=== PATIENT | male | born 1955 | race Caucasian/White ===

== ENCOUNTER 2018-09-21 13:27 | Inpatient (IN) | payer BC, MEDICARE ==
[~2018-09-21] VITALS: Ht 177.8 cm; Wt 79.5 kg
[~2018-09-21 13:27] MED LIST: POTA20TA12 PO
--- NOTE | 2018-09-21 13:49 | RAD ---
Chest radiograph 09/21/2018 1:36 PM INDICATION: Weakness and on chemotherapy. COMPARISON: Chest radiograph January 31, 2015 TECHNIQUE: Portable upright frontal view of the chest is provided. FINDINGS: The cardiomediastinal silhouette is within normal limits. There are no pleural effusions. There is no pulmonary vascular congestion. There is no pneumothorax. Right chest wall infusion port catheter is identified with the distal tip in the cavoatrial junction. There is a parenchymal opacity in the right upper lobe which has a bandlike morphology and may represent posttreatment related changes versus subsegmental atelectasis versus parenchymal opacity. No significant osseous abnormality is identified. IMPRESSION: There is a 17 mm parenchymal opacity in the right upper lobe which has a bandlike morphology and may represent posttreatment related changes versus subsegmental atelectasis versus parenchymal opacity. Electronically signed by: Aline Marie MD (09/21/2018 1:45 PM) [id number]
[2018-09-21] MEDS ORDERED: IV NORMAL SALINE 1000ML BAG 1,000 ML IV ONE ×2 (14:00→14:30)
[2018-09-21 14:04] LABS: BASO # 0.1 x10^3/uL (0.0-0.2); BASO % 0 % (0-3); EOS % 0 % (0-3); HEMATOCRIT 42.9 % (39.0-53.0); HEMOGLOBIN 13.7 g/dL (13.0-17.5); LYMPH # 0.4 x10^3/uL (1.0-4.8); LYMPH % 2 % (24-48); MEAN CORPUSCULAR HEMOGLOBIN 27 pg (25-35); MEAN CORPUSCULAR HGB CONC 32 g/dL (31-37); MEAN CORPUSCULAR VOLUME 85 fL (79-100); MONO # 0.7 x10^3/uL (0.0-1.1); MONO % 3 % (0-9); NEUT % 95 % (31-73); PLATELET COUNT 349 x10^3/uL (140-400); RED BLOOD COUNT 5.04 x10^6/uL (4.30-5.70); RED CELL DISTRIBUTION WIDTH 18.8 % (11.5-14.5); WHITE BLOOD COUNT 23.2 x10^3/uL (4.0-11.0)
[2018-09-21 14:16] LABS: CALCIUM 9.9 mg/dL (8.5-10.1); CREATININE 3.7 mg/dL (0.7-1.3); GFR 16.6; POTASSIUM 4.8 mmol/L (3.5-5.1)
[2018-09-21 14:22] LABS: ALBUMIN 2.4 g/dL (3.4-5.0); ALBUMIN/GLOBULIN RATIO 0.5 (1.0-1.7); TOTAL BILIRUBIN 0.7 mg/dL (0.2-1.0); TOTAL PROTEIN 7.6 g/dL (6.4-8.2)
--- NOTE | 2018-09-21 14:24 | PHYS DOC ---
Past Medical History Past Medical History: Cancer, Constipation, Hypertension Additional Past Medical Histor: heart murmur (patent ductus),colon ca Past Surgical History: Other Additional Past Surgical Histo: inguinal hernia x3, umbilical hernia, bowel resection/colostomy Alcohol Use: None Drug Use: None Adult General Chief Complaint Chief Complaint: WEAKNESS/GENERALIZED HPI HPI 63-year-old male with multiple medical problems including colon cancer currently receiving chemotherapy monthly and the urinary tract infection that was treated as an outpatient who presents with generalized weakness. Patient states he knows he still has a urinary tract infection was going to go back to the urgent care today to receive more antibiotics but was too weak. He states he is unable to get up and get around at all. He states he has not been eating or drinking normally. His urine output has been down. He has had no nausea or vomiting. He denies any high fever chills or sweats.[] Review of Systems Review of Systems Constitutional: Profoundly weak but denies fever or chills[] Eyes: Denies change in visual acuity, redness, or eye pain [] HENT: Denies nasal congestion or sore throat [] Respiratory: Denies cough or shortness of breath [] Cardiovascular: No additional information not addressed in HPI [] GI: Denies abdominal pain, nausea, vomiting, bloody stools or diarrhea [] : Decreased urine output[] Musculoskeletal: Denies back pain or joint pain [] Integument: Denies rash or skin lesions [] Neurologic: Denies headache, focal weakness or sensory changes [] Endocrine: Denies polyuria or polydipsia [] All other systems were reviewed and found to be within normal limits, except as documented in this note. Current Medications Current Medications Current Medications Medications (Trade) Dose Ordered Sig/Joseph Start Time Stop Time Status Last Admin Dose Admin Piperacillin Sod/ Tazobactam Sod 3.375 gm/Sodium Chloride 50 ml @ 100 mls/hr 1X ONCE 09/21/18 14:30 09/21/18 14:59 DC 09/21/18 14:59 100 MLS/HR Sodium Chloride 1,000 ml @ 150 mls/hr Q6H40M 09/21/18 14:40 09/22/18 14:39 Allergies Allergies Allergies Coded Allergies Type Severity Reaction Last Updated Verified No Known Drug Allergies 01/12/15 No Physical Exam Physical Exam Constitutional: Frail, elderly, older than stated age appears dehydrated and acutely ill[] HENT: Normocephalic, atraumatic, bilateral external ears normal, oropharynx moist, no oral exudates, nose normal. [] Eyes: PERRLA, EOMI, conjunctiva normal, no discharge. [] Neck: Normal range of motion, no tenderness, supple, no stridor. [] Cardiovascular: Tachycardic no murmur[] Lungs & Thorax: Bilateral breath sounds clear to auscultation [] Abdomen: Colostomy in place in the right midabdomen in the periumbilical area there is 2 wounds that are open down to the fascia that her malodorous but appear pink and otherwise healing well there is mesh below. [] Skin: Warm, dry, no erythema, no rash. [] Back: No tenderness, no CVA tenderness. [] Extremities: No tenderness, no cyanosis, no clubbing, ROM intact, no edema. [] Neurologic: Alert and oriented X 3, normal motor function, normal sensory function, no focal deficits noted. [] Psychologic: Depressed affect[] Current Patient Data Vital Signs Vital Signs Date Time Temp Pulse Resp B/P (MAP) Pulse Ox O2 Delivery O2 Flow Rate FiO2 09/21/18 13:27 99.0 139 23 170/114 (132) Room Air 99.0 Lab Values Laboratory Tests Test 09/21/18 13:50 White Blood Count 23.2 x10^3/uL (4.0-11.0) H Red Blood Count 5.04 x10^6/uL (4.30-5.70) Hemoglobin 13.7 g/dL (13.0-17.5) Hematocrit 42.9 % (39.0-53.0) Mean Corpuscular Volume 85 fL (79-100) Mean Corpuscular Hemoglobin 27 pg (25-35) Mean Corpuscular Hemoglobin Concent 32 g/dL (31-37) Red Cell Distribution Width 18.8 % (11.5-14.5) H Platelet Count 349 x10^3/uL (140-400) Neutrophils (%) (Auto) 95 % (31-73) H Lymphocytes (%) (Auto) 2 % (24-48) L Monocytes (%) (Auto) 3 % (0-9) Eosinophils (%) (Auto) 0 % (0-3) Basophils (%) (Auto) 0 % (0-3) Neutrophils # (Auto) 22.0 x10^3uL (1.8-7.7) H Lymphocytes # (Auto) 0.4 x10^3/uL (1.0-4.8) L Monocytes # (Auto) 0.7 x10^3/uL (0.0-1.1) Eosinophils # (Auto) 0.0 x10^3/uL (0.0-0.7) Basophils # (Auto) 0.1 x10^3/uL (0.0-0.2) Segmented Neutrophils % 72 % (35-66) H Band Neutrophils % 12 % (0-9) H Lymphocytes % 6 % (24-48) L Monocytes % 7 % (0-10) Metamyelocytes % 3 % (0-0) H Toxic Granulation Slight Toxic Vacuolation Slight Platelet Estimate Adequate (ADEQUATE) Platelet Clumps, EDTA Present Large Platelets Occ Anisocytosis Slight Sodium Level 134 mmol/L (136-145) L Potassium Level 4.8 mmol/L (3.5-5.1) Chloride Level 92 mmol/L (98-107) L Carbon Dioxide Level 17 mmol/L (21-32) L Anion Gap 25 (6-14) H Blood Urea Nitrogen 114 mg/dL (8-26) H Creatinine 3.7 mg/dL (0.7-1.3) H Estimated GFR (Cockcroft-Gault) 16.6 BUN/Creatinine Ratio 31 (6-20) H Glucose Level 240 mg/dL (70-99) H Lactic Acid Level 7.8 mmol/L (0.4-2.0) *H Calcium Level 9.9 mg/dL (8.5-10.1) Total Bilirubin 0.7 mg/dL (0.2-1.0) Aspartate Amino Transferase (AST) 44 U/L (15-37) H Alanine Aminotransferase (ALT) 49 U/L (16-63) Alkaline Phosphatase 184 U/L (46-116) H Troponin I Quantitative 0.024 ng/mL (0.000-0.055) Total Protein 7.6 g/dL (6.4-8.2) Albumin 2.4 g/dL (3.4-5.0) L Albumin/Globulin Ratio 0.5 (1.0-1.7) L Laboratory Tests 09/21/18 13:50 Laboratory Tests 09/21/18 13:50 EKG EKG EKG: [] sinus tachycardia rate of 136 intraventricular conduction delay Radiology/Procedures Radiology/Procedures [] Impressions: PROCEDURE: CHEST AP ONLY Chest radiograph 09/21/2018 1:36 PM INDICATION: Weakness and on chemotherapy. COMPARISON: Chest radiograph January 31, 2015 TECHNIQUE: Portable upright frontal view of the chest is provided. FINDINGS: The cardiomediastinal silhouette is within normal limits. There are no pleural effusions. There is no pulmonary vascular congestion. There is no pneumothorax. Right chest wall infusion port catheter is identified with the distal tip in the cavoatrial junction. There is a parenchymal opacity in the right upper lobe which has a bandlike morphology and may represent posttreatment related changes versus subsegmental atelectasis versus parenchymal opacity. No significant osseous abnormality is identified. IMPRESSION: There is a 17 mm parenchymal opacity in the right upper lobe which has a bandlike morphology and may represent posttreatment related changes versus subsegmental atelectasis versus parenchymal opacity. Course & Med Decision Making Course & Med Decision Making Pertinent Labs and Imaging studies reviewed. (See chart for details) [ED course: Evaluation reveals a 63-year-old profoundly dehydrated male who is tachycardic and in some renal failure given the fact that he has had a urinary tract infection I believe the likelihood of sepsis is very high. The patient was given a total of 2 L of IV fluid in the department broad-spectrum antibiotics in the way of Zosyn 3.375 g IV and vancomycin 1 g the patient's source of infection is likely multifactorial including urine and wound so the Zosyn and vancomycin should appropriately cover. Blood cultures and lactic acid were drawn. I spoke with the hospitalist agreed to accept the patient to the hospital.] Dragon Disclaimer Dragon Disclaimer This electronic medical record was generated, in whole or in part, using a voice recognition dictation system. Departure Departure Impression: Primary Impression: Sepsis Disposition: 09 ADMITTED INPATIENT Admitting Physician: Abby Silver Condition: CRITICAL Referrals: NO PCP (PCP) Problem Qualifiers Primary Impression: Sepsis Sepsis type: sepsis due to unspecified organism Qualified Codes: A41.9 - Sepsis, unspecified organism MARRY AUSTIN DO Sep 21, 2018 14:24
[2018-09-21] MEDS ORDERED: PIPERACILLIN/TAZOBACTAM 3.375 GM in IV NORMAL SALINE 50ML 50 ML IV ONE (14:30)
[2018-09-21] MEDS ORDERED: ACETAMINOPHEN 325 MG TABLET. PO PRN (14:45)
[2018-09-21] MEDS ORDERED: VANCOMYCIN 1GM IVPB FOR OMNI 250 ML IV ONE (14:45)
[2018-09-21] MEDS ORDERED: VANCOMYCIN PER PHARMACY MC PRN (14:45)
[2018-09-21] MEDS ORDERED: ONDANSETRON PF 4 MG/2 ML VIAL. IV PRN ×2 (14:45→16:45)
[2018-09-21] MEDS ORDERED: VANCOMYCIN 1.25 GM in IV NORMAL SALINE 250ML 250 ML IV ONE (15:00)
[2018-09-21 15:02] LABS: % BANDS 12 % (0-9); % LYMPHS 6 % (24-48); % METAS 3 % (0-0); % MONOS 7 % (0-10); % SEGS 72 % (35-66); ANISOCYTOSIS SLIGHT; PLT ESTIMATE ADEQUATE (ADEQUATE)
[2018-09-21 15:03] LABS: PLATELET CLUMP PRESENT; TOXIC GRANULATION SLIGHT; TOXIC VACUOLATION SLIGHT
--- NOTE | 2018-09-21 16:20 | EKG ---
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
[2018-09-21] MEDS: IV NORMAL SALINE 1000ML BAG 1,000 ML IV SCH (16:55)
[2018-09-21] MEDS ORDERED: RIVA20TA2 PO (17:09)
[2018-09-21] MEDS ORDERED: LISI-334 PO (17:09)
--- NOTE | 2018-09-21 17:56 | PDOC1 ---
History and Physical Date of Admission Date of Admission DATE: 09/21/18 TIME: 17:56 Identification/Chief Complaint Chief Complaint Weak and can't get up, very dry Source Source: Caregiver, Chart review, Patient History of Present Illness History of Present Illness 63-year-old male with multiple medical problems including colon cancer currently receiving chemotherapy monthly and the urinary tract infection that was treated as an outpatient who presents with generalized weakness. Patient states he knows he still has a urinary tract infection was going to go back to the urgent care today to receive more antibiotics but was too weak. He states he is unable to get up and get around at all. He states he has not been eating or drinking normally. His urine output has been down. He has had no nausea or vomiting. He denies any high fever chills or sweats. Tachycardic at the ER 120 to 130s bpm. Labs are as follows low sodium 134, low chloride, with a creatinine 3.7 WBC 23. High anion gap of 25. So far no urine output yet. Mouth is so dry that he has white flakes on corners of his mouth Has a history of abdominal hernia mesh repair that need some surgery but was told that could not be done because he is on chemotherapy. He is tender in that area. Induration and redness on the left side. The midline incision or surgical area is looks red inflamed and tender to touch. He has a white count of 23,000 with fevers and tachycardia fulfill sepsis. We'll consult GS. I would also like to consult renal regarding oliguria creatinine of 3.7. Also has a lactate of 7.8. Has an elevated anion gap of 25 Cultures have been drawn CXR: IMPRESSION: There is a 17 mm parenchymal opacity in the right upper lobe which has a bandlike morphology and may represent posttreatment related changes versus subsegmental atelectasis versus parenchymal opacity. Past Medical History Cardiovascular: HTN, Other Pulmonary: No pertinent hx GI: No pertinent hx Heme/Onc: Cancer Hepatobiliary: No pertinent hx Psych: No pertinent hx Musculoskeletal: Osteoarthritis Infectious disease: No pertinent hx Renal/: No pertinent hx Endocrine: No pertinent hx Past Surgical History Past Surgical History: Hernia Repair, Other (colon resction, indwelling colostomy) Family History Family History: Adopted Social History Smoke: No ALCOHOL: none Drugs: None Current Problem List Problem List Problems Medical Problems: (1) Sepsis Status: Acute Current Medications Current Medications Current Medications Sodium Chloride 1,000 ml @ 1,000 mls/hr 1X ONCE IV Last administered on at 13:56; Start 09/21/18 at 14:00; Stop 09/21/18 at 14:59; Status DC Piperacillin Sod/ Tazobactam Sod 3.375 gm/Sodium Chloride 50 ml @ 100 mls/hr 1X ONCE IV Last administered on 09/21/18at 14:59; Start 09/21/18 at 14:30; Stop 09/21/18 at 14:59; Status DC Sodium Chloride 1,000 ml @ 1,000 mls/hr 1X ONCE IV Last administered on at 14:55; Start 09/21/18 at 14:30; Stop 09/21/18 at 15:29; Status DC Ondansetron HCl (Zofran) 4 mg PRN Q8HRS PRN IV NAUSEA/VOMITING; Start 09/21/18 at 14:45; Stop 09/21/18 at 16:31; Status DC Sodium Chloride 1,000 ml @ 150 mls/hr Q6H40M IV Last administered on at 16:55; Start 09/21/18 at 14:40; Stop 09/22/18 at 14:39 Acetaminophen (Tylenol) 650 mg PRN Q4HRS PRN PO FEVER; Start 09/21/18 at 14:45 ; Stop 09/22/18 at 14:44 Vancomycin HCl 250 ml @ 250 mls/hr 1X ONCE IV ; Start 09/21/18 at 14:45; Stop 09/21/18 at 15:44; Status UNV Vancomycin HCl (Vanco Per Pharmacy) 1 each PRN DAILY PRN MC SEE COMMENTS; Start 09/21/18 at 14:45 Vancomycin HCl 1.25 gm/Sodium Chloride 250 ml @ 166.667 mls/hr 1X ONCE IV Last administered on 09/21/18at 15:34; Start 09/21/18 at 15:00; Stop 09/21/18 at 16:29; Status DC Ondansetron HCl (Zofran) 4 mg PRN Q6HRS PRN IV NAUSEA/VOMITING; Start 09/21/18 at 16:45 Active Scripts Active Potassium Chloride 20 Meq Tab.er.prt 1 Tab PO DAILY Reported Lisinopril 20 Mg Tablet 10 Mg PO DAILY Xarelto (Rivaroxaban) 20 Mg Tablet 20 Mg PO DAILY Allergies Allergies: Coded Allergies: No Known Drug Allergies (Unverified , 01/12/15) ROS Review of System Abdominal pain and left-sided redness flank pain tender to touch he guards it Weak, the rest per HPI - all else 14 pt neg Physical Exam General: Alert, Oriented X3, Cooperative, No acute distress HEENT: Atraumatic, PERRLA, EOMI, Other (very dry mucous membranes) Lungs: Clear to auscultation, Normal air movement Heart: S1S2, RRR, no thrills, no rubs, no gallops, no murmurs, no jug vein distention Abdomen: Soft, Other (indwelling colostomy right side, mid ventral wound is open red tenderness somewhat juicyHe also has left-sided flank tenderness redness he guards it when I tried to palpate) Male Genitals Exam: normal genitalia, normal prostate Rectal Exam: not examined PELVIC: Nml ext genitalia Extremities: No clubbing, No cyanosis, No edema, Normal pulses, No tenderness/ swelling Skin: No rashes, No breakdown, No significant lesion Neuro: Normal gait, Normal speech, Strength at 5/5 X4 ext, Normal tone, Sensation intact, Cranial nerves 3-12 NL, Reflexes 2+ Psych/Mental Status: Mental status NL, Mood NL Vitals Vitals Vital Signs Date Time Temp Pulse Resp B/P (MAP) Pulse Ox O2 Delivery O2 Flow Rate FiO2 09/21/18 15:30 110 16 97 09/21/18 13:27 99.0 170/114 (132) Room Air 99.0 Labs Labs Laboratory Tests Test 09/21/18 13:50 White Blood Count 23.2 x10^3/uL (4.0-11.0) Red Blood Count 5.04 x10^6/uL (4.30-5.70) Hemoglobin 13.7 g/dL (13.0-17.5) Hematocrit 42.9 % (39.0-53.0) Mean Corpuscular Volume 85 fL (79-100) Mean Corpuscular Hemoglobin 27 pg (25-35) Mean Corpuscular Hemoglobin Concent 32 g/dL (31-37) Red Cell Distribution Width 18.8 % (11.5-14.5) Platelet Count 349 x10^3/uL (140-400) Neutrophils (%) (Auto) 95 % (31-73) Lymphocytes (%) (Auto) 2 % (24-48) Monocytes (%) (Auto) 3 % (0-9) Eosinophils (%) (Auto) 0 % (0-3) Basophils (%) (Auto) 0 % (0-3) Neutrophils # (Auto) 22.0 x10^3uL (1.8-7.7) Lymphocytes # (Auto) 0.4 x10^3/uL (1.0-4.8) Monocytes # (Auto) 0.7 x10^3/uL (0.0-1.1) Eosinophils # (Auto) 0.0 x10^3/uL (0.0-0.7) Basophils # (Auto) 0.1 x10^3/uL (0.0-0.2) Segmented Neutrophils % 72 % (35-66) Band Neutrophils % 12 % (0-9) Lymphocytes % 6 % (24-48) Monocytes % 7 % (0-10) Metamyelocytes % 3 % (0-0) Toxic Granulation Slight Toxic Vacuolation Slight Platelet Estimate Adequate (ADEQUATE) Platelet Clumps, EDTA Present Large Platelets Occ Anisocytosis Slight Sodium Level 134 mmol/L (136-145) Potassium Level 4.8 mmol/L (3.5-5.1) Chloride Level 92 mmol/L (98-107) Carbon Dioxide Level 17 mmol/L (21-32) Anion Gap 25 (6-14) Blood Urea Nitrogen 114 mg/dL (8-26) Creatinine 3.7 mg/dL (0.7-1.3) Estimated GFR (Cockcroft-Gault) 16.6 BUN/Creatinine Ratio 31 (6-20) Glucose Level 240 mg/dL (70-99) Lactic Acid Level 7.8 mmol/L (0.4-2.0) Calcium Level 9.9 mg/dL (8.5-10.1) Total Bilirubin 0.7 mg/dL (0.2-1.0) Aspartate Amino Transf (AST/SGOT) 44 U/L (15-37) Alanine Aminotransferase (ALT/SGPT) 49 U/L (16-63) Alkaline Phosphatase 184 U/L (46-116) Troponin I Quantitative 0.024 ng/mL (0.000-0.055) Total Protein 7.6 g/dL (6.4-8.2) Albumin 2.4 g/dL (3.4-5.0) Albumin/Globulin Ratio 0.5 (1.0-1.7) Laboratory Tests Test 09/21/18 13:50 White Blood Count 23.2 x10^3/uL (4.0-11.0) Red Blood Count 5.04 x10^6/uL (4.30-5.70) Hemoglobin 13.7 g/dL (13.0-17.5) Hematocrit 42.9 % (39.0-53.0) Mean Corpuscular Volume 85 fL (79-100) Mean Corpuscular Hemoglobin 27 pg (25-35) Mean Corpuscular Hemoglobin Concent 32 g/dL (31-37) Red Cell Distribution Width 18.8 % (11.5-14.5) Platelet Count 349 x10^3/uL (140-400) Neutrophils (%) (Auto) 95 % (31-73) Lymphocytes (%) (Auto) 2 % (24-48) Monocytes (%) (Auto) 3 % (0-9) Eosinophils (%) (Auto) 0 % (0-3) Basophils (%) (Auto) 0 % (0-3) Neutrophils # (Auto) 22.0 x10^3uL (1.8-7.7) Lymphocytes # (Auto) 0.4 x10^3/uL (1.0-4.8) Monocytes # (Auto) 0.7 x10^3/uL (0.0-1.1) Eosinophils # (Auto) 0.0 x10^3/uL (0.0-0.7) Basophils # (Auto) 0.1 x10^3/uL (0.0-0.2) Segmented Neutrophils % 72 % (35-66) Band Neutrophils % 12 % (0-9) Lymphocytes % 6 % (24-48) Monocytes % 7 % (0-10) Metamyelocytes % 3 % (0-0) Toxic Granulation Slight Toxic Vacuolation Slight Platelet Estimate Adequate (ADEQUATE) Platelet Clumps, EDTA Present Large Platelets Occ Anisocytosis Slight Sodium Level 134 mmol/L (136-145) Potassium Level 4.8 mmol/L (3.5-5.1) Chloride Level 92 mmol/L (98-107) Carbon Dioxide Level 17 mmol/L (21-32) Anion Gap 25 (6-14) Blood Urea Nitrogen 114 mg/dL (8-26) Creatinine 3.7 mg/dL (0.7-1.3) Estimated GFR (Cockcroft-Gault) 16.6 BUN/Creatinine Ratio 31 (6-20) Glucose Level 240 mg/dL (70-99) Lactic Acid Level 7.8 mmol/L (0.4-2.0) Calcium Level 9.9 mg/dL (8.5-10.1) Total Bilirubin 0.7 mg/dL (0.2-1.0) Aspartate Amino Transf (AST/SGOT) 44 U/L (15-37) Alanine Aminotransferase (ALT/SGPT) 49 U/L (16-63) Alkaline Phosphatase 184 U/L (46-116) Troponin I Quantitative 0.024 ng/mL (0.000-0.055) Total Protein 7.6 g/dL (6.4-8.2) Albumin 2.4 g/dL (3.4-5.0) Albumin/Globulin Ratio 0.5 (1.0-1.7) VTE Prophylaxis Ordered VTE Prophylaxis Devices: Yes VTE Pharmacological Prophylaxi: Yes Assessment/Plan Assessment/Plan Sepsis with elevated lactate 7 Elevated anion gap 25, oliguria, creatinine 3.7 Renal failure, acute Hyponatremia 134-very dry Tachycardia 120s to 1300 sinus Leukocytosis 23 History recent UTI-a week ago Colon CA on chemotherapy [facility] status post colon Resection with indwelling colostomy Ventral hernia mesh wound, infected PLAN: Admit 2 MN Add IV Zosyn to IV Vanc Admit 2 midnights Consult GS, I know he needs surgery and so far no plans or not a candidate because of chemotherapy but I am unsure if he needs some bedside cleaning up, wound looks infected/ juicy Recheck lactate 7, anion gap 25 tomorrow and leukocytosis 23 ID consulted IV Fluid hydration for now for the sepsis Consult renal regarding oliguria renal failure with a creatinine 3.7 PT OT Full code I have reconciled home meds Further recs pending above course Wait for urine culture and blood cultures Critical care 30 minutes SO far not hypotensive.... DWAYNE TIDWELL MD Sep 21, 2018 17:56
[2018-09-21] MEDS ORDERED: PIP/TAZO PER PHARMACY MC PRN (18:00)
[2018-09-21] MEDS: HEPARIN for SUB-Q USE 5,000 UNIT/ML VIAL. SQ SCH (18:28)
--- NOTE | 2018-09-21 18:40 | NUR ---
Pharmacy Vancomycin Dosing Note S:Consulted to monitor and dose vancomycin started 09/21/18. O:KELLY DONOVAN is a 63 year old M with Sepsis . Height: 5 feet, 10 inches Weight: 78.130029 kg [place] Body Weight: 73.00 Adjusted Body Weight: 75.04 Dosing Weight: Actual Other Antibiotics: LABS: Last BUN: 114 Last Creatinine: 3.7 Creatinine Clearance: 20.6 mL/min Last WBC: 23.2 Last Procalcitonin: Tmax (past 24 hours): 99.0 Microbiology: I/O: Drug Levels: Last level: on at Last dose given 09/21/18 at 1534 Vancomycin Dosing: Loading Dose: 1250 mg x1 Dosing Weight: Actual Target Trough: 15-20 A: Based on weight and est. CrCl: P: 1. Begin Vancomycin 1250 mg IV q24h. 2. Follow up Trough level on 09/23/18 at 1430. 3. Pharmacy will continue to monitor, follow and adjust therapy as needed. Burt Khan [facility], 09/21/18 [id number]
[2018-09-21 19:00] VITALS: BP 137/78
[2018-09-21 21:49] LABS: BILIRUBIN,URINE NEGATIVE (NEG); CLARITY,URINE CLEAR; COLOR,URINE YELLOW; NITRITE,URINE NEGATIVE (NEG); PROTEIN,URINE 30 mg/dL (NEG-TRACE); UROBILINOGEN,URINE 0.2 mg/dL (0.2 mg/dL)
[2018-09-21 21:54] LABS: GRANULAR CASTS,URINE MODERATE /HPF
[2018-09-21 21:55] LABS: WBC,URINE TNTC /HPF (0-4)
[2018-09-21 21:56] LABS: BACTERIA,URINE FEW /HPF (0-FEW); SQUAMOUS EPITHELIAL CELL,UR OCC /LPF
--- NOTE | 2018-09-21 22:08 | NUR ---
During patient assessment, this RN found a small draining area on patient's penis. See chart for photo. Chauncey was approximately 50% saturated with drainage from wound. Patient's scrotum is red and very enlarged as well. Asked patient about this - patient stated he has "had that for months." Notified Dr. Silver of findings and swabbed wound per protocol.
[2018-09-21 23:00] VITALS: BP 130/77
[2018-09-22] VITALS (10 sets, daily range): BP systolic 96–126; BP diastolic 55–77
[2018-09-22] MEDS: PIPERACILLIN/TAZOBACTAM 3.375 GM in IV NORMAL SALINE 50ML 50 ML IV SCH ×3 (00:22→12:00)
[2018-09-22] MEDS: IV NORMAL SALINE 1000ML BAG 1,000 ML IV SCH ×3 (00:22→11:24)
[2018-09-22] MEDS: HEPARIN for SUB-Q USE 5,000 UNIT/ML VIAL. SQ SCH ×3 (00:29→22:44)
[2018-09-22 04:38] LABS: BASO % 0 % (0-3); EOS % 0 % (0-3); HEMATOCRIT 34.6 % (39.0-53.0); HEMOGLOBIN 11.3 g/dL (13.0-17.5); LYMPH # 0.4 x10^3/uL (1.0-4.8); LYMPH % 3 % (24-48); MEAN CORPUSCULAR HEMOGLOBIN 27 pg (25-35); MEAN CORPUSCULAR HGB CONC 33 g/dL (31-37); MEAN CORPUSCULAR VOLUME 84 fL (79-100); MONO # 0.5 x10^3/uL (0.0-1.1); MONO % 4 % (0-9); NEUT # 10.7 x10^3uL (1.8-7.7); NEUT % 93 % (31-73); PLATELET COUNT 188 x10^3/uL (140-400); RED BLOOD COUNT 4.14 x10^6/uL (4.30-5.70); RED CELL DISTRIBUTION WIDTH 18.2 % (11.5-14.5); WHITE BLOOD COUNT 11.6 x10^3/uL (4.0-11.0)
[2018-09-22 05:02] LABS: ALBUMIN 1.6 g/dL (3.4-5.0); ALBUMIN/GLOBULIN RATIO 0.3 (1.0-1.7); CALCIUM 8.6 mg/dL (8.5-10.1); CREATININE 2.8 mg/dL (0.7-1.3); GFR 22.9; POTASSIUM 4.2 mmol/L (3.5-5.1); TOTAL BILIRUBIN 0.6 mg/dL (0.2-1.0); TOTAL PROTEIN 6.4 g/dL (6.4-8.2)
[2018-09-22] MEDS ORDERED: IOHEXOL 240 MG/ML 50ML VIAL. PO ONE (07:15)
[2018-09-22] MEDS ORDERED: CONTRAST GIVEN. MC PRN (07:15)
--- NOTE | 2018-09-22 08:37 | PDOC2 ---
MAKI [facility] [employer] 09/22/18 0837: CONSULT Date of Consult Date of Consult DATE: 09/22/18 TIME: 08:28 Reason for Consult Reason for Consult: wound infection Referring Physician Referring Physician: ER Identification/Chief Complaint Chief Complaint weakness Source Source: Chart review, Patient History of Present Illness Reason for Visit: Problems with UTI for a couple of months, was treated with abx in urgent care, at first improved, then began to feel worse again Patient known from previous colon resection for colon cancer in 2014. He does have a history of umbilical hernia repair and 3 inguinal repairs--reports has been told by physician at mesh needs to come out, however on chemo currently. Wound is open and has drainage, he his unsure how long. He has had a lack of PO intake for several weeks with ongoing ill feeling. Denies constipation or diarrhea Past Medical History Cardiovascular: HTN, Other Pulmonary: No pertinent hx GI: No pertinent hx Heme/Onc: Cancer Hepatobiliary: No pertinent hx Psych: No pertinent hx Musculoskeletal: Osteoarthritis Infectious disease: No pertinent hx Renal/: No pertinent hx Endocrine: No pertinent hx Past Surgical History Past Surgical History: Hernia Repair, Colon Resection Family History Family History: Adopted Social History No ALCOHOL: none Drugs: None Lives: Alone Current Problem List Problem List Problems Medical Problems: (1) Sepsis Status: Acute Current Medications Current Medications Current Medications Sodium Chloride 1,000 ml @ 1,000 mls/hr 1X ONCE IV Last administered on at 13:56; Start 09/21/18 at 14:00; Stop 09/21/18 at 14:59; Status DC Piperacillin Sod/ Tazobactam Sod 3.375 gm/Sodium Chloride 50 ml @ 100 mls/hr 1X ONCE IV Last administered on 09/21/18at 14:59; Start 09/21/18 at 14:30; Stop 09/21/18 at 14:59; Status DC Sodium Chloride 1,000 ml @ 1,000 mls/hr 1X ONCE IV Last administered on at 14:55; Start 09/21/18 at 14:30; Stop 09/21/18 at 15:29; Status DC Ondansetron HCl (Zofran) 4 mg PRN Q8HRS PRN IV NAUSEA/VOMITING; Start 09/21/18 at 14:45; Stop 09/21/18 at 16:31; Status DC Sodium Chloride 1,000 ml @ 150 mls/hr Q6H40M IV Last administered on at 00:22; Start 09/21/18 at 14:40; Stop 09/22/18 at 14:39 Acetaminophen (Tylenol) 650 mg PRN Q4HRS PRN PO FEVER; Start 09/21/18 at 14:45 ; Stop 09/22/18 at 14:44 Vancomycin HCl 250 ml @ 250 mls/hr 1X ONCE IV ; Start 09/21/18 at 14:45; Stop 09/21/18 at 15:44; Status UNV Vancomycin HCl (Vanco Per Pharmacy) 1 each PRN DAILY PRN MC SEE COMMENTS Last administered on 09/21/18at 18:36; Start 09/21/18 at 14:45 Vancomycin HCl 1.25 gm/Sodium Chloride 250 ml @ 166.667 mls/hr 1X ONCE IV Last administered on 09/21/18at 15:34; Start 09/21/18 at 15:00; Stop 09/21/18 at 16:29; Status DC Ondansetron HCl (Zofran) 4 mg PRN Q6HRS PRN IV NAUSEA/VOMITING; Start 09/21/18 at 16:45 Piperacillin Sod/ Tazobactam Sod (Zosyn Per Pharmacy) 1 each PRN DAILY PRN MC SEE COMMENTS; Start 09/21/18 at 18:00 Lisinopril (Prinivil) 10 mg DAILY PO ; Start 09/22/18 at 09:00 Piperacillin Sod/ Tazobactam Sod 3.375 gm/Sodium Chloride 50 ml @ 100 mls/hr Q6HRS IV Last administered on 09/22/18at 05:48; Start 09/22/18 at 00:00 Heparin Sodium (Porcine) (Heparin Sodium) 5,000 unit Q8HRS SQ Last administered on 09/22/18at 05:54; Start 09/21/18 at 18:00 Vancomycin HCl 1.25 gm/Sodium Chloride 250 ml @ 166.667 mls/hr Q24H IV ; Start 09/22/18 at 15:00 Vancomycin HCl (Vancomycin Trough Level) 1 each 1X ONCE MC ; Start 09/23/18 at 14:30; Stop 09/23/18 at 14:31 Iohexol (Omnipaque 240 Mg/ml) 50 ml 1X ONCE PO ; Start 09/22/18 at 07:15; Stop 09/22/18 at 07:16; Status DC Info (CONTRAST GIVEN -- Rx MONITORING) 1 each PRN DAILY PRN MC SEE COMMENTS; Start 09/22/18 at 07:15; Stop 09/24/18 at 07:14 Active Scripts Active Potassium Chloride 20 Meq Tab.er.prt 1 Tab PO DAILY Reported Lisinopril 20 Mg Tablet 10 Mg PO DAILY Xarelto (Rivaroxaban) 20 Mg Tablet 20 Mg PO DAILY Allergies Allergies: Coded Allergies: No Known Drug Allergies (Unverified , 01/12/15) ROS General: YES: Chills, Fatigue, Malaise PSYCHOLOGICAL ROS: No: Anxiety, Depression Eyes: No Blurry vision, No Double vision Hematological and Lymphatic: No: Bleeding Problems, Blood Clots Respiratory: No: Cough, Shortness of breath Cardiovascular: No Chest Pain, No Palpitations Gastrointestinal: No Nausea, No Vomiting Genitourinary: YES Dysuria; No Hematuria Musculoskeletal: Yes Muscular Weakness; No Joint Pain Neurological: No Confusion, No Numbness/Tingling Skin: Yes Other (see hpi) Physical Exam General: Cooperative, No acute distress HEENT: Atraumatic, PERRLA Lungs: Clear to auscultation, Normal air movement Heart: Normal S1, Normal S2, Other (tachy) Abdomen: Soft, Other (midline wound 2 areas open, purulent drainage, tenderness to LLQ, ileostomy in place) Extremities: No clubbing, No cyanosis Psych/Mental Status: Mental status NL, Mood NL Vitals VITALS Vital Signs Date Time Temp Pulse Resp B/P (MAP) Pulse Ox O2 Delivery O2 Flow Rate FiO2 09/22/18 07:00 98.3 98 19 115/69 (84) 97 Room Air 98.3 Labs Labs Laboratory Tests Test 09/21/18 13:50 09/21/18 21:00 09/22/18 03:40 09/22/18 03:45 White Blood Count 23.2 x10^3/uL (4.0-11.0) 11.6 x10^3/uL (4.0-11.0) Red Blood Count 5.04 x10^6/uL (4.30-5.70) 4.14 x10^6/uL (4.30-5.70) Hemoglobin 13.7 g/dL (13.0-17.5) 11.3 g/dL (13.0-17.5) Hematocrit 42.9 % (39.0-53.0) 34.6 % (39.0-53.0) Mean Corpuscular Volume 85 fL (79-100) 84 fL (79-100) Mean Corpuscular Hemoglobin 27 pg (25-35) 27 pg (25-35) Mean Corpuscular Hemoglobin Concent 32 g/dL (31-37) 33 g/dL (31-37) Red Cell Distribution Width 18.8 % (11.5-14.5) 18.2 % (11.5-14.5) Platelet Count 349 x10^3/uL (140-400) 188 x10^3/uL (140-400) Neutrophils (%) (Auto) 95 % (31-73) 93 % (31-73) Lymphocytes (%) (Auto) 2 % (24-48) 3 % (24-48) Monocytes (%) (Auto) 3 % (0-9) 4 % (0-9) Eosinophils (%) (Auto) 0 % (0-3) 0 % (0-3) Basophils (%) (Auto) 0 % (0-3) 0 % (0-3) Neutrophils # (Auto) 22.0 x10^3uL (1.8-7.7) 10.7 x10^3uL (1.8-7.7) Lymphocytes # (Auto) 0.4 x10^3/uL (1.0-4.8) 0.4 x10^3/uL (1.0-4.8) Monocytes # (Auto) 0.7 x10^3/uL (0.0-1.1) 0.5 x10^3/uL (0.0-1.1) Eosinophils # (Auto) 0.0 x10^3/uL (0.0-0.7) 0.0 x10^3/uL (0.0-0.7) Basophils # (Auto) 0.1 x10^3/uL (0.0-0.2) 0.0 x10^3/uL (0.0-0.2) Segmented Neutrophils % 72 % (35-66) Band Neutrophils % 12 % (0-9) Lymphocytes % 6 % (24-48) Monocytes % 7 % (0-10) Metamyelocytes % 3 % (0-0) Toxic Granulation Slight Toxic Vacuolation Slight Platelet Estimate Adequate (ADEQUATE) Platelet Clumps, EDTA Present Large Platelets Occ Anisocytosis Slight Sodium Level 134 mmol/L (136-145) 139 mmol/L (136-145) Potassium Level 4.8 mmol/L (3.5-5.1) 4.2 mmol/L (3.5-5.1) Chloride Level 92 mmol/L (98-107) 104 mmol/L (98-107) Carbon Dioxide Level 17 mmol/L (21-32) 20 mmol/L (21-32) Anion Gap 25 (6-14) 15 (6-14) Blood Urea Nitrogen 114 mg/dL (8-26) 95 mg/dL (8-26) Creatinine 3.7 mg/dL (0.7-1.3) 2.8 mg/dL (0.7-1.3) Estimated GFR (Cockcroft-Gault) 16.6 22.9 BUN/Creatinine Ratio 31 (6-20) 34 (6-20) Glucose Level 240 mg/dL (70-99) 156 mg/dL (70-99) Lactic Acid Level 7.8 mmol/L (0.4-2.0) 1.8 mmol/L (0.4-2.0) Calcium Level 9.9 mg/dL (8.5-10.1) 8.6 mg/dL (8.5-10.1) Total Bilirubin 0.7 mg/dL (0.2-1.0) 0.6 mg/dL (0.2-1.0) Aspartate Amino Transf (AST/SGOT) 44 U/L (15-37) 31 U/L (15-37) Alanine Aminotransferase (ALT/SGPT) 49 U/L (16-63) 32 U/L (16-63) Alkaline Phosphatase 184 U/L (46-116) 121 U/L (46-116) Troponin I Quantitative 0.024 ng/mL (0.000-0.055) Total Protein 7.6 g/dL (6.4-8.2) 6.4 g/dL (6.4-8.2) Albumin 2.4 g/dL (3.4-5.0) 1.6 g/dL (3.4-5.0) Albumin/Globulin Ratio 0.5 (1.0-1.7) 0.3 (1.0-1.7) Urine Collection Type Unknown Urine Color Yellow Urine Clarity Clear Urine pH 5.0 Urine Specific [place] 1.020 Urine Protein 30 mg/dL (NEG-TRACE) Urine Glucose (UA) 250 mg/dL (NEG) Urine Ketones (Stick) Negative mg/dL (NEG) Urine Blood Large (NEG) Urine Nitrite Negative (NEG) Urine Bilirubin Negative (NEG) Urine Urobilinogen Dipstick 0.2 mg/dL (0.2 mg/dL) Urine Leukocyte Esterase Large (NEG) Urine RBC 11-20 /HPF (0-2) Urine WBC Tntc /HPF (0-4) Urine Squamous Epithelial Cells Occ /LPF Urine Bacteria Few /HPF (0-FEW) Urine Granular Casts Moderate /HPF Laboratory Tests Test 09/21/18 13:50 09/21/18 21:00 09/22/18 03:40 09/22/18 03:45 White Blood Count 23.2 x10^3/uL (4.0-11.0) 11.6 x10^3/uL (4.0-11.0) Red Blood Count 5.04 x10^6/uL (4.30-5.70) 4.14 x10^6/uL (4.30-5.70) Hemoglobin 13.7 g/dL (13.0-17.5) 11.3 g/dL (13.0-17.5) Hematocrit 42.9 % (39.0-53.0) 34.6 % (39.0-53.0) Mean Corpuscular Volume 85 fL (79-100) 84 fL (79-100) Mean Corpuscular Hemoglobin 27 pg (25-35) 27 pg (25-35) Mean Corpuscular Hemoglobin Concent 32 g/dL (31-37) 33 g/dL (31-37) Red Cell Distribution Width 18.8 % (11.5-14.5) 18.2 % (11.5-14.5) Platelet Count 349 x10^3/uL (140-400) 188 x10^3/uL (140-400) Neutrophils (%) (Auto) 95 % (31-73) 93 % (31-73) Lymphocytes (%) (Auto) 2 % (24-48) 3 % (24-48) Monocytes (%) (Auto) 3 % (0-9) 4 % (0-9) Eosinophils (%) (Auto) 0 % (0-3) 0 % (0-3) Basophils (%) (Auto) 0 % (0-3) 0 % (0-3) Neutrophils # (Auto) 22.0 x10^3uL (1.8-7.7) 10.7 x10^3uL (1.8-7.7) Lymphocytes # (Auto) 0.4 x10^3/uL (1.0-4.8) 0.4 x10^3/uL (1.0-4.8) Monocytes # (Auto) 0.7 x10^3/uL (0.0-1.1) 0.5 x10^3/uL (0.0-1.1) Eosinophils # (Auto) 0.0 x10^3/uL (0.0-0.7) 0.0 x10^3/uL (0.0-0.7) Basophils # (Auto) 0.1 x10^3/uL (0.0-0.2) 0.0 x10^3/uL (0.0-0.2) Segmented Neutrophils % 72 % (35-66) Band Neutrophils % 12 % (0-9) Lymphocytes % 6 % (24-48) Monocytes % 7 % (0-10) Metamyelocytes % 3 % (0-0) Toxic Granulation Slight Toxic Vacuolation Slight Platelet Estimate Adequate (ADEQUATE) Platelet Clumps, EDTA Present Large Platelets Occ Anisocytosis Slight Sodium Level 134 mmol/L (136-145) 139 mmol/L (136-145) Potassium Level 4.8 mmol/L (3.5-5.1) 4.2 mmol/L (3.5-5.1) Chloride Level 92 mmol/L (98-107) 104 mmol/L (98-107) Carbon Dioxide Level 17 mmol/L (21-32) 20 mmol/L (21-32) Anion Gap 25 (6-14) 15 (6-14) Blood Urea Nitrogen 114 mg/dL (8-26) 95 mg/dL (8-26) Creatinine 3.7 mg/dL (0.7-1.3) 2.8 mg/dL (0.7-1.3) Estimated GFR (Cockcroft-Gault) 16.6 22.9 BUN/Creatinine Ratio 31 (6-20) 34 (6-20) Glucose Level 240 mg/dL (70-99) 156 mg/dL (70-99) Lactic Acid Level 7.8 mmol/L (0.4-2.0) 1.8 mmol/L (0.4-2.0) Calcium Level 9.9 mg/dL (8.5-10.1) 8.6 mg/dL (8.5-10.1) Total Bilirubin 0.7 mg/dL (0.2-1.0) 0.6 mg/dL (0.2-1.0) Aspartate Amino Transf (AST/SGOT) 44 U/L (15-37) 31 U/L (15-37) Alanine Aminotransferase (ALT/SGPT) 49 U/L (16-63) 32 U/L (16-63) Alkaline Phosphatase 184 U/L (46-116) 121 U/L (46-116) Troponin I Quantitative 0.024 ng/mL (0.000-0.055) Total Protein 7.6 g/dL (6.4-8.2) 6.4 g/dL (6.4-8.2) Albumin 2.4 g/dL (3.4-5.0) 1.6 g/dL (3.4-5.0) Albumin/Globulin Ratio 0.5 (1.0-1.7) 0.3 (1.0-1.7) Urine Collection Type Unknown Urine Color Yellow Urine Clarity Clear Urine pH 5.0 Urine Specific [place] 1.020 Urine Protein 30 mg/dL (NEG-TRACE) Urine Glucose (UA) 250 mg/dL (NEG) Urine Ketones (Stick) Negative mg/dL (NEG) Urine Blood Large (NEG) Urine Nitrite Negative (NEG) Urine Bilirubin Negative (NEG) Urine Urobilinogen Dipstick 0.2 mg/dL (0.2 mg/dL) Urine Leukocyte Esterase Large (NEG) Urine RBC 11-20 /HPF (0-2) Urine WBC Tntc /HPF (0-4) Urine Squamous Epithelial Cells Occ /LPF Urine Bacteria Few /HPF (0-FEW) Urine Granular Casts Moderate /HPF Assessment/Plan Assessment/Plan sepsis hyponatremia ARF tachycardia abdominal wound Hx UTI improved with fluid support will review with Dr Samuel regarding wound--may need CT once kidney function stable TRACE SAMUEL MD 09/22/18 1257: CONSULT Assessment/Plan Assessment/Plan pt seen, interviewed and examined known from previous colon surgery has two small open areas in his midline incision, one with exposed bowel, one with old mesh scrotum is swollen, erythematous, some dark drainage CT reviewed urology consult PND no acute gen surg recs will follow abdominal wounds which at present are not source of pain per patient Thanks for consult MAKI WILSON APRN Sep 22, 2018 08:37 TRACE SAMUEL MD Sep 22, 2018 12:57
[2018-09-22] MEDS ORDERED: LISINOPRIL 10 MG TABLET PO SCH (09:00)
--- NOTE | 2018-09-22 09:02 | NUR ---
SW following pt for anticipated dc needs. Chart reviewed. Pt lives at home alone, is self-pay and room air. PT pending. SW will continue to follow pt to eval discharge needs.
--- NOTE | 2018-09-22 11:16 | PDOC ---
PROGRESS NOTES Chief Complaint Chief Complaint Sepsis with elevated lactate 7, now normal Closed anion gap Renal failure, acute - improving Hyponatremia 134-very dry Tachycardia 120s to 1300 sinus, better Leukocytosis improving BILateral scrotal swelling improving History recent UTI-a week ago Colon CA on chemotherapy KU status post colon Resection with indwelling colostomy Ventral hernia mesh wound, infected History of Present Illness History of Present Illness Pt has no complaints But night RN called me for severe scrotal swelling and some superficial wound on the scrotum, right I did inspect the scrotum, way much better, soft and not tense, has powder around them. WOund care on board and he is on IV abx for scrotal wound concerns that dont look bad actually His numbers are getting better too, WBC down to 11 from 23 Tachycardia is better Creatinine getting better from 3 to 2.8 Lactate has now normalized from 7 Getting IV fluids Appreciate GS CT scan abdomen and pelvis done but read is still pending Wound care recommends MVI and vitamin C Plan: await CT abdomen pelvis MVI and vitamin C COlostomy bag care I did resume Xarelto since no surgical plans for now Further recs pending above Follow blood cultures Continue IV antibiotics and wound care PT.OT FUll code SW on case for dc dispo/plans Vitals Vitals Vital Signs Date Time Temp Pulse Resp B/P (MAP) Pulse Ox O2 Delivery O2 Flow Rate FiO2 09/22/18 07:00 98.3 98 19 115/69 (84) 97 Room Air 98.3 Physical Exam General: Cooperative, No acute distress Heart: Normal S1, Normal S2, Other (tachy) Lungs: Clear Abdomen: Soft, Other (midline wound 2 areas open, purulent drainage, tenderness to LLQ, ileostomy in place) Extremities: No clubbing, No cyanosis Skin: No rashes, No breakdown, No significant lesion Labs LABS Laboratory Tests Test 09/21/18 13:50 09/21/18 21:00 09/22/18 03:40 09/22/18 03:45 White Blood Count 23.2 x10^3/uL (4.0-11.0) 11.6 x10^3/uL (4.0-11.0) Red Blood Count 5.04 x10^6/uL (4.30-5.70) 4.14 x10^6/uL (4.30-5.70) Hemoglobin 13.7 g/dL (13.0-17.5) 11.3 g/dL (13.0-17.5) Hematocrit 42.9 % (39.0-53.0) 34.6 % (39.0-53.0) Mean Corpuscular Volume 85 fL (79-100) 84 fL (79-100) Mean Corpuscular Hemoglobin 27 pg (25-35) 27 pg (25-35) Mean Corpuscular Hemoglobin Concent 32 g/dL (31-37) 33 g/dL (31-37) Red Cell Distribution Width 18.8 % (11.5-14.5) 18.2 % (11.5-14.5) Platelet Count 349 x10^3/uL (140-400) 188 x10^3/uL (140-400) Neutrophils (%) (Auto) 95 % (31-73) 93 % (31-73) Lymphocytes (%) (Auto) 2 % (24-48) 3 % (24-48) Monocytes (%) (Auto) 3 % (0-9) 4 % (0-9) Eosinophils (%) (Auto) 0 % (0-3) 0 % (0-3) Basophils (%) (Auto) 0 % (0-3) 0 % (0-3) Neutrophils # (Auto) 22.0 x10^3uL (1.8-7.7) 10.7 x10^3uL (1.8-7.7) Lymphocytes # (Auto) 0.4 x10^3/uL (1.0-4.8) 0.4 x10^3/uL (1.0-4.8) Monocytes # (Auto) 0.7 x10^3/uL (0.0-1.1) 0.5 x10^3/uL (0.0-1.1) Eosinophils # (Auto) 0.0 x10^3/uL (0.0-0.7) 0.0 x10^3/uL (0.0-0.7) Basophils # (Auto) 0.1 x10^3/uL (0.0-0.2) 0.0 x10^3/uL (0.0-0.2) Segmented Neutrophils % 72 % (35-66) Band Neutrophils % 12 % (0-9) Lymphocytes % 6 % (24-48) Monocytes % 7 % (0-10) Metamyelocytes % 3 % (0-0) Toxic Granulation Slight Toxic Vacuolation Slight Platelet Estimate Adequate (ADEQUATE) Platelet Clumps, EDTA Present Large Platelets Occ Anisocytosis Slight Sodium Level 134 mmol/L (136-145) 139 mmol/L (136-145) Potassium Level 4.8 mmol/L (3.5-5.1) 4.2 mmol/L (3.5-5.1) Chloride Level 92 mmol/L (98-107) 104 mmol/L (98-107) Carbon Dioxide Level 17 mmol/L (21-32) 20 mmol/L (21-32) Anion Gap 25 (6-14) 15 (6-14) Blood Urea Nitrogen 114 mg/dL (8-26) 95 mg/dL (8-26) Creatinine 3.7 mg/dL (0.7-1.3) 2.8 mg/dL (0.7-1.3) Estimated GFR (Cockcroft-Gault) 16.6 22.9 BUN/Creatinine Ratio 31 (6-20) 34 (6-20) Glucose Level 240 mg/dL (70-99) 156 mg/dL (70-99) Lactic Acid Level 7.8 mmol/L (0.4-2.0) 1.8 mmol/L (0.4-2.0) Calcium Level 9.9 mg/dL (8.5-10.1) 8.6 mg/dL (8.5-10.1) Total Bilirubin 0.7 mg/dL (0.2-1.0) 0.6 mg/dL (0.2-1.0) Aspartate Amino Transf (AST/SGOT) 44 U/L (15-37) 31 U/L (15-37) Alanine Aminotransferase (ALT/SGPT) 49 U/L (16-63) 32 U/L (16-63) Alkaline Phosphatase 184 U/L (46-116) 121 U/L (46-116) Troponin I Quantitative 0.024 ng/mL (0.000-0.055) Total Protein 7.6 g/dL (6.4-8.2) 6.4 g/dL (6.4-8.2) Albumin 2.4 g/dL (3.4-5.0) 1.6 g/dL (3.4-5.0) Albumin/Globulin Ratio 0.5 (1.0-1.7) 0.3 (1.0-1.7) Urine Collection Type Unknown Urine Color Yellow Urine Clarity Clear Urine pH 5.0 Urine Specific [place] 1.020 Urine Protein 30 mg/dL (NEG-TRACE) Urine Glucose (UA) 250 mg/dL (NEG) Urine Ketones (Stick) Negative mg/dL (NEG) Urine Blood Large (NEG) Urine Nitrite Negative (NEG) Urine Bilirubin Negative (NEG) Urine Urobilinogen Dipstick 0.2 mg/dL (0.2 mg/dL) Urine Leukocyte Esterase Large (NEG) Urine RBC 11-20 /HPF (0-2) Urine WBC Tntc /HPF (0-4) Urine Squamous Epithelial Cells Occ /LPF Urine Bacteria Few /HPF (0-FEW) Urine Granular Casts Moderate /HPF Review of Systems Review of Systems A 14 point ROS was completed with the following noted as positive: Other systems reviewed and negative. \CONSTITUTIONAL: No fever or chills EYES: No recent changes SKIN: CARDIOVASCULAR: No chest pain, syncope, palpitations, or edema RESPIRATORY: No SOB or cough GASTROINTESTINAL: No nausea, vomiting or abdominal pain NEUROLOGICAL: No headaches or weakness ENDOCRINE: No cold or heat intolerance GENITOURINARY: scrotal MUSCULOSKELETAL: No back pain or joint pain LYMPHATICS: No enlarged lymph nodes PSYCHIATRIC: No anxiety or depression Assessment and Plan Assessmemt and Plan Problems Medical Problems: (1) Sepsis Status: Acute Comment Review of Relevant I have reviewed the following items renetta (where applicable) has been applied. Labs Laboratory Tests Test 09/21/18 13:50 09/21/18 21:00 09/22/18 03:40 09/22/18 03:45 White Blood Count 23.2 x10^3/uL (4.0-11.0) 11.6 x10^3/uL (4.0-11.0) Red Blood Count 5.04 x10^6/uL (4.30-5.70) 4.14 x10^6/uL (4.30-5.70) Hemoglobin 13.7 g/dL (13.0-17.5) 11.3 g/dL (13.0-17.5) Hematocrit 42.9 % (39.0-53.0) 34.6 % (39.0-53.0) Mean Corpuscular Volume 85 fL (79-100) 84 fL (79-100) Mean Corpuscular Hemoglobin 27 pg (25-35) 27 pg (25-35) Mean Corpuscular Hemoglobin Concent 32 g/dL (31-37) 33 g/dL (31-37) Red Cell Distribution Width 18.8 % (11.5-14.5) 18.2 % (11.5-14.5) Platelet Count 349 x10^3/uL (140-400) 188 x10^3/uL (140-400) Neutrophils (%) (Auto) 95 % (31-73) 93 % (31-73) Lymphocytes (%) (Auto) 2 % (24-48) 3 % (24-48) Monocytes (%) (Auto) 3 % (0-9) 4 % (0-9) Eosinophils (%) (Auto) 0 % (0-3) 0 % (0-3) Basophils (%) (Auto) 0 % (0-3) 0 % (0-3) Neutrophils # (Auto) 22.0 x10^3uL (1.8-7.7) 10.7 x10^3uL (1.8-7.7) Lymphocytes # (Auto) 0.4 x10^3/uL (1.0-4.8) 0.4 x10^3/uL (1.0-4.8) Monocytes # (Auto) 0.7 x10^3/uL (0.0-1.1) 0.5 x10^3/uL (0.0-1.1) Eosinophils # (Auto) 0.0 x10^3/uL (0.0-0.7) 0.0 x10^3/uL (0.0-0.7) Basophils # (Auto) 0.1 x10^3/uL (0.0-0.2) 0.0 x10^3/uL (0.0-0.2) Segmented Neutrophils % 72 % (35-66) Band Neutrophils % 12 % (0-9) Lymphocytes % 6 % (24-48) Monocytes % 7 % (0-10) Metamyelocytes % 3 % (0-0) Toxic Granulation Slight Toxic Vacuolation Slight Platelet Estimate Adequate (ADEQUATE) Platelet Clumps, EDTA Present Large Platelets Occ Anisocytosis Slight Sodium Level 134 mmol/L (136-145) 139 mmol/L (136-145) Potassium Level 4.8 mmol/L (3.5-5.1) 4.2 mmol/L (3.5-5.1) Chloride Level 92 mmol/L (98-107) 104 mmol/L (98-107) Carbon Dioxide Level 17 mmol/L (21-32) 20 mmol/L (21-32) Anion Gap 25 (6-14) 15 (6-14) Blood Urea Nitrogen 114 mg/dL (8-26) 95 mg/dL (8-26) Creatinine 3.7 mg/dL (0.7-1.3) 2.8 mg/dL (0.7-1.3) Estimated GFR (Cockcroft-Gault) 16.6 22.9 BUN/Creatinine Ratio 31 (6-20) 34 (6-20) Glucose Level 240 mg/dL (70-99) 156 mg/dL (70-99) Lactic Acid Level 7.8 mmol/L (0.4-2.0) 1.8 mmol/L (0.4-2.0) Calcium Level 9.9 mg/dL (8.5-10.1) 8.6 mg/dL (8.5-10.1) Total Bilirubin 0.7 mg/dL (0.2-1.0) 0.6 mg/dL (0.2-1.0) Aspartate Amino Transf (AST/SGOT) 44 U/L (15-37) 31 U/L (15-37) Alanine Aminotransferase (ALT/SGPT) 49 U/L (16-63) 32 U/L (16-63) Alkaline Phosphatase 184 U/L (46-116) 121 U/L (46-116) Troponin I Quantitative 0.024 ng/mL (0.000-0.055) Total Protein 7.6 g/dL (6.4-8.2) 6.4 g/dL (6.4-8.2) Albumin 2.4 g/dL (3.4-5.0) 1.6 g/dL (3.4-5.0) Albumin/Globulin Ratio 0.5 (1.0-1.7) 0.3 (1.0-1.7) Urine Collection Type Unknown Urine Color Yellow Urine Clarity Clear Urine pH 5.0 Urine Specific [place] 1.020 Urine Protein 30 mg/dL (NEG-TRACE) Urine Glucose (UA) 250 mg/dL (NEG) Urine Ketones (Stick) Negative mg/dL (NEG) Urine Blood Large (NEG) Urine Nitrite Negative (NEG) Urine Bilirubin Negative (NEG) Urine Urobilinogen Dipstick 0.2 mg/dL (0.2 mg/dL) Urine Leukocyte Esterase Large (NEG) Urine RBC 11-20 /HPF (0-2) Urine WBC Tntc /HPF (0-4) Urine Squamous Epithelial Cells Occ /LPF Urine Bacteria Few /HPF (0-FEW) Urine Granular Casts Moderate /HPF Laboratory Tests Test 09/21/18 13:50 09/21/18 21:00 09/22/18 03:40 09/22/18 03:45 White Blood Count 23.2 x10^3/uL (4.0-11.0) 11.6 x10^3/uL (4.0-11.0) Red Blood Count 5.04 x10^6/uL (4.30-5.70) 4.14 x10^6/uL (4.30-5.70) Hemoglobin 13.7 g/dL (13.0-17.5) 11.3 g/dL (13.0-17.5) Hematocrit 42.9 % (39.0-53.0) 34.6 % (39.0-53.0) Mean Corpuscular Volume 85 fL (79-100) 84 fL (79-100) Mean Corpuscular Hemoglobin 27 pg (25-35) 27 pg (25-35) Mean Corpuscular Hemoglobin Concent 32 g/dL (31-37) 33 g/dL (31-37) Red Cell Distribution Width 18.8 % (11.5-14.5) 18.2 % (11.5-14.5) Platelet Count 349 x10^3/uL (140-400) 188 x10^3/uL (140-400) Neutrophils (%) (Auto) 95 % (31-73) 93 % (31-73) Lymphocytes (%) (Auto) 2 % (24-48) 3 % (24-48) Monocytes (%) (Auto) 3 % (0-9) 4 % (0-9) Eosinophils (%) (Auto) 0 % (0-3) 0 % (0-3) Basophils (%) (Auto) 0 % (0-3) 0 % (0-3) Neutrophils # (Auto) 22.0 x10^3uL (1.8-7.7) 10.7 x10^3uL (1.8-7.7) Lymphocytes # (Auto) 0.4 x10^3/uL (1.0-4.8) 0.4 x10^3/uL (1.0-4.8) Monocytes # (Auto) 0.7 x10^3/uL (0.0-1.1) 0.5 x10^3/uL (0.0-1.1) Eosinophils # (Auto) 0.0 x10^3/uL (0.0-0.7) 0.0 x10^3/uL (0.0-0.7) Basophils # (Auto) 0.1 x10^3/uL (0.0-0.2) 0.0 x10^3/uL (0.0-0.2) Segmented Neutrophils % 72 % (35-66) Band Neutrophils % 12 % (0-9) Lymphocytes % 6 % (24-48) Monocytes % 7 % (0-10) Metamyelocytes % 3 % (0-0) Toxic Granulation Slight Toxic Vacuolation Slight Platelet Estimate Adequate (ADEQUATE) Platelet Clumps, EDTA Present Large Platelets Occ Anisocytosis Slight Sodium Level 134 mmol/L (136-145) 139 mmol/L (136-145) Potassium Level 4.8 mmol/L (3.5-5.1) 4.2 mmol/L (3.5-5.1) Chloride Level 92 mmol/L (98-107) 104 mmol/L (98-107) Carbon Dioxide Level 17 mmol/L (21-32) 20 mmol/L (21-32) Anion Gap 25 (6-14) 15 (6-14) Blood Urea Nitrogen 114 mg/dL (8-26) 95 mg/dL (8-26) Creatinine 3.7 mg/dL (0.7-1.3) 2.8 mg/dL (0.7-1.3) Estimated GFR (Cockcroft-Gault) 16.6 22.9 BUN/Creatinine Ratio 31 (6-20) 34 (6-20) Glucose Level 240 mg/dL (70-99) 156 mg/dL (70-99) Lactic Acid Level 7.8 mmol/L (0.4-2.0) 1.8 mmol/L (0.4-2.0) Calcium Level 9.9 mg/dL (8.5-10.1) 8.6 mg/dL (8.5-10.1) Total Bilirubin 0.7 mg/dL (0.2-1.0) 0.6 mg/dL (0.2-1.0) Aspartate Amino Transf (AST/SGOT) 44 U/L (15-37) 31 U/L (15-37) Alanine Aminotransferase (ALT/SGPT) 49 U/L (16-63) 32 U/L (16-63) Alkaline Phosphatase 184 U/L (46-116) 121 U/L (46-116) Troponin I Quantitative 0.024 ng/mL (0.000-0.055) Total Protein 7.6 g/dL (6.4-8.2) 6.4 g/dL (6.4-8.2) Albumin 2.4 g/dL (3.4-5.0) 1.6 g/dL (3.4-5.0) Albumin/Globulin Ratio 0.5 (1.0-1.7) 0.3 (1.0-1.7) Urine Collection Type Unknown Urine Color Yellow Urine Clarity Clear Urine pH 5.0 Urine Specific [place] 1.020 Urine Protein 30 mg/dL (NEG-TRACE) Urine Glucose (UA) 250 mg/dL (NEG) Urine Ketones (Stick) Negative mg/dL (NEG) Urine Blood Large (NEG) Urine Nitrite Negative (NEG) Urine Bilirubin Negative (NEG) Urine Urobilinogen Dipstick 0.2 mg/dL (0.2 mg/dL) Urine Leukocyte Esterase Large (NEG) Urine RBC 11-20 /HPF (0-2) Urine WBC Tntc /HPF (0-4) Urine Squamous Epithelial Cells Occ /LPF Urine Bacteria Few /HPF (0-FEW) Urine Granular Casts Moderate /HPF Medications Current Medications Sodium Chloride 1,000 ml @ 1,000 mls/hr 1X ONCE IV Last administered on at 13:56; Start 09/21/18 at 14:00; Stop 09/21/18 at 14:59; Status DC Piperacillin Sod/ Tazobactam Sod 3.375 gm/Sodium Chloride 50 ml @ 100 mls/hr 1X ONCE IV Last administered on 09/21/18at 14:59; Start 09/21/18 at 14:30; Stop 09/21/18 at 14:59; Status DC Sodium Chloride 1,000 ml @ 1,000 mls/hr 1X ONCE IV Last administered on at 14:55; Start 09/21/18 at 14:30; Stop 09/21/18 at 15:29; Status DC Ondansetron HCl (Zofran) 4 mg PRN Q8HRS PRN IV NAUSEA/VOMITING; Start 09/21/18 at 14:45; Stop 09/21/18 at 16:31; Status DC Sodium Chloride 1,000 ml @ 150 mls/hr Q6H40M IV Last administered on at 00:22; Start 09/21/18 at 14:40; Stop 09/22/18 at 14:39 Acetaminophen (Tylenol) 650 mg PRN Q4HRS PRN PO FEVER; Start 09/21/18 at 14:45 ; Stop 09/22/18 at 14:44 Vancomycin HCl 250 ml @ 250 mls/hr 1X ONCE IV ; Start 09/21/18 at 14:45; Stop 09/21/18 at 15:44; Status UNV Vancomycin HCl (Vanco Per Pharmacy) 1 each PRN DAILY PRN MC SEE COMMENTS Last administered on 09/21/18at 18:36; Start 09/21/18 at 14:45 Vancomycin HCl 1.25 gm/Sodium Chloride 250 ml @ 166.667 mls/hr 1X ONCE IV Last administered on 09/21/18at 15:34; Start 09/21/18 at 15:00; Stop 09/21/18 at 16:29; Status DC Ondansetron HCl (Zofran) 4 mg PRN Q6HRS PRN IV NAUSEA/VOMITING; Start 09/21/18 at 16:45 Piperacillin Sod/ Tazobactam Sod (Zosyn Per Pharmacy) 1 each PRN DAILY PRN MC SEE COMMENTS; Start 09/21/18 at 18:00 Lisinopril (Prinivil) 10 mg DAILY PO ; Start 09/22/18 at 09:00 Piperacillin Sod/ Tazobactam Sod 3.375 gm/Sodium Chloride 50 ml @ 100 mls/hr Q6HRS IV Last administered on 09/22/18at 05:48; Start 09/22/18 at 00:00 Heparin Sodium (Porcine) (Heparin Sodium) 5,000 unit Q8HRS SQ Last administered on 09/22/18at 05:54; Start 09/21/18 at 18:00 Vancomycin HCl 1.25 gm/Sodium Chloride 250 ml @ 166.667 mls/hr Q24H IV ; Start 09/22/18 at 15:00 Vancomycin HCl (Vancomycin Trough Level) 1 each 1X ONCE MC ; Start 09/23/18 at 14:30; Stop 09/23/18 at 14:31 Iohexol (Omnipaque 240 Mg/ml) 50 ml 1X ONCE PO Last administered on 09/22/18at 07:15; Start 09/22/18 at 07:15; Stop 09/22/18 at 07:16; Status DC Info (CONTRAST GIVEN -- Rx MONITORING) 1 each PRN DAILY PRN MC SEE COMMENTS; Start 09/22/18 at 07:15; Stop 09/24/18 at 07:14 Active Scripts Active Potassium Chloride 20 Meq Tab.er.prt 1 Tab PO DAILY Reported Lisinopril 20 Mg Tablet 10 Mg PO DAILY Xarelto (Rivaroxaban) 20 Mg Tablet 20 Mg PO DAILY Vitals/I & O Vital Sign - Last 24 Hours 09/21/18 09/21/18 09/21/18 09/21/18 13:27 14:00 14:30 15:00 Temp 99.0 99.0 Pulse 139 128 120 118 Resp 23 26 16 B/P (MAP) 170/114 (132) Pulse Ox 90 95 96 O2 Delivery Room Air 09/21/18 09/21/18 09/21/18 09/21/18 15:30 17:49 19:00 20:00 Temp 98.7 98.7 Pulse 110 124 Resp 16 18 B/P (MAP) 137/78 (97) Pulse Ox 97 97 O2 Delivery Room Air Room Air Room Air 09/21/18 09/22/18 09/22/18 23:00 03:00 07:00 Temp 99.7 98.1 98.3 99.7 98.1 98.3 Pulse 125 105 98 Resp 18 18 19 B/P (MAP) 130/77 (94) 126/77 (93) 115/69 (84) Pulse Ox 96 97 97 O2 Delivery Room Air Room Air Room Air Intake and Output 09/21/18 09/21/18 09/22/18 15:00 23:00 07:00 Intake Total 2000 ml 1450 ml Balance 2000 ml 1450 ml DWAYNE TIDWELL MD Sep 22, 2018 11:16
[2018-09-22] MEDS: ASCORBIC ACID 500 MG TABLET PO SCH (12:00)
[2018-09-22] MEDS: MULTIVITAMIN with MINERAL TABLET. PO SCH (12:00)
--- NOTE | 2018-09-22 12:00 | RAD ---
CT ABD PEL W/ORAL CONTRST ONLY Indication: ventral hernia wound that looks infected, left side flank red, pain, indura
PO ONLY OMNI 240 50 MLS
PREVIOUS Exposure: One or more of the following individualized dose reduction techniques were utilized for this examination: 1. Automated exposure control 2. Adjustment of the mA and/or kV according to patient size 3. Use of iterative reconstruction technique. Technique: Intravenous contrast was given. No oral contrast per request. FINDINGS: Mild atelectasis or infiltrate in the lung bases, mostly the left. No pericardial effusion. Multiple low-density lesions are identified within the liver. Some have decreased in size. One or 2 new lesions are seen in the inferior right lobe. The largest lesion measures fluid density characteristics, compatible with a cyst. Other lesions are more difficult to characterize. The new lesions inferiorly measure greater than simple fluid. Spleen not enlarged. Pancreas unremarkable. Left adrenal nodule measures 15 mm diameter, unchanged from similar prior slice. At least one small gallstone is identified. Aorta mildly ectatic and calcified without aneurysm. There are irregular pockets of gas density within the left lateral abdominal wall and subcutaneous left flank, and dissecting inferiorly into the left inguinal region and into the left scrotum. There is also increased soft tissue density in the these areas through the scrotum. There is scrotal wall thickening. There is a defect within the anterior abdominal wall, presumably representing the ventral hernia wound, with some soft tissue gas in this region. There is a right lower quadrant ostomy. No evidence of bowel obstruction. No evidence of pneumoperitoneum or significant ascites. Urinary bladder is distended, measuring 17 cm without definite wall thickening. Degenerative spondylosis of the visualized spine with stenosis. No destructive bone lesion is identified. IMPRESSION: 1. There is extensive soft tissue density and gas along the left lateral abdominal wall and flank, and extending inferiorly into the left inguinal region and left scrotum. In this clinical context, findings are most compatible with soft tissue infection with gas-forming organism. Necrotizing fasciitis should be considered. 2. Multiple low-density lesions in the liver. Most were seen previously, but at least one is new and measures greater than simple fluid density. This could still represent a complex cyst or benign hemangioma. Further evaluation with follow-up CT scan or MRI could be of benefit when clinically feasible. 3. Cholelithiasis. 4. Stable left adrenal nodule. FOR INTERNAL CODING PURPOSES Critical result: Findings discussed with the patient's 5 N. nurse, Radah, at 09/22/2018 11:52 AM. She will inform the patient's physician immediately. RESULT CODE: (C) Electronically signed by: Jay Dumas MD (09/22/2018 11:57 AM) [id number]
--- NOTE | 2018-09-22 12:40 | PDOC ---
Infectious Disease Note Subjective: Subjective Pt seen and examined Consult dictated [id number] ROS: ROS Negative except for above. Vital Signs: Vital Signs Vital Signs Date Time Temp Pulse Resp B/P (MAP) Pulse Ox O2 Delivery O2 Flow Rate FiO2 09/22/18 11:24 98 115/69 09/22/18 07:00 98.3 19 97 Room Air 98.3 Medications: Inpatient Meds: Current Medications Medications (Trade) Dose Ordered Sig/Joseph Start Time Stop Time Status Last Admin Dose Admin Acetaminophen (Tylenol) 650 mg PRN Q4HRS PRN 09/21/18 14:45 09/22/18 14:44 Ascorbic Acid (Vitamin C) 500 mg DAILY 09/22/18 12:00 Heparin Sodium (Porcine) (Heparin Sodium) 5,000 unit Q8HRS 09/21/18 18:00 09/22/18 11:15 DC 09/22/18 05:54 5,000 UNIT Info (Anti-Coagulation Monitoring By Pharmacy) 1 each PRN DAILY PRN 09/22/18 11:30 Info (CONTRAST GIVEN -- Rx MONITORING) 1 each PRN DAILY PRN 09/22/18 07:15 09/24/18 07:14 Iohexol (Omnipaque 240 Mg/ml) 50 ml 1X ONCE 09/22/18 07:15 09/22/18 07:16 DC 09/22/18 07:15 50 ML Linezolid/Dextrose 300 ml @ 300 mls/hr Q12HR 09/22/18 13:00 Lisinopril (Prinivil) 10 mg DAILY 09/22/18 09:00 09/22/18 11:24 10 MG Micafungin Sodium 100 mg/Dextrose 100 ml @ 100 mls/hr Q24H 09/22/18 13:00 Multivitamins (Thera M Plus) 1 tab DAILY 09/22/18 12:00 Ondansetron HCl (Zofran) 4 mg PRN Q6HRS PRN 09/21/18 16:45 Piperacillin Sod/ Tazobactam Sod (Zosyn Per Pharmacy) 1 each PRN DAILY PRN 09/21/18 18:00 Piperacillin Sod/ Tazobactam Sod 3.375 gm/Sodium Chloride 50 ml @ 100 mls/hr Q6HRS 09/22/18 00:00 09/22/18 05:48 100 MLS/HR Rivaroxaban (Xarelto) 15 mg DAILYWSUP 09/22/18 17:00 Sodium Chloride 1,000 ml @ 150 mls/hr Q6H40M 09/21/18 14:40 09/22/18 14:39 09/22/18 11:24 150 MLS/HR Vancomycin HCl (Vanco Per Pharmacy) 1 each PRN DAILY PRN 09/21/18 14:45 09/21/18 18:36 1 EACH Vancomycin HCl (Vancomycin Trough Level) 1 each 1X ONCE 09/23/18 14:30 09/23/18 14:31 Vancomycin HCl 1.25 gm/Sodium Chloride 250 ml @ 166.667 mls/hr Q24H 09/22/18 15:00 Labs: Lab Laboratory Tests Test 09/21/18 13:50 09/21/18 21:00 09/22/18 03:40 09/22/18 03:45 White Blood Count 23.2 x10^3/uL (4.0-11.0) 11.6 x10^3/uL (4.0-11.0) Red Blood Count 5.04 x10^6/uL (4.30-5.70) 4.14 x10^6/uL (4.30-5.70) Hemoglobin 13.7 g/dL (13.0-17.5) 11.3 g/dL (13.0-17.5) Hematocrit 42.9 % (39.0-53.0) 34.6 % (39.0-53.0) Mean Corpuscular Volume 85 fL (79-100) 84 fL (79-100) Mean Corpuscular Hemoglobin 27 pg (25-35) 27 pg (25-35) Mean Corpuscular Hemoglobin Concent 32 g/dL (31-37) 33 g/dL (31-37) Red Cell Distribution Width 18.8 % (11.5-14.5) 18.2 % (11.5-14.5) Platelet Count 349 x10^3/uL (140-400) 188 x10^3/uL (140-400) Neutrophils (%) (Auto) 95 % (31-73) 93 % (31-73) Lymphocytes (%) (Auto) 2 % (24-48) 3 % (24-48) Monocytes (%) (Auto) 3 % (0-9) 4 % (0-9) Eosinophils (%) (Auto) 0 % (0-3) 0 % (0-3) Basophils (%) (Auto) 0 % (0-3) 0 % (0-3) Neutrophils # (Auto) 22.0 x10^3uL (1.8-7.7) 10.7 x10^3uL (1.8-7.7) Lymphocytes # (Auto) 0.4 x10^3/uL (1.0-4.8) 0.4 x10^3/uL (1.0-4.8) Monocytes # (Auto) 0.7 x10^3/uL (0.0-1.1) 0.5 x10^3/uL (0.0-1.1) Eosinophils # (Auto) 0.0 x10^3/uL (0.0-0.7) 0.0 x10^3/uL (0.0-0.7) Basophils # (Auto) 0.1 x10^3/uL (0.0-0.2) 0.0 x10^3/uL (0.0-0.2) Segmented Neutrophils % 72 % (35-66) Band Neutrophils % 12 % (0-9) Lymphocytes % 6 % (24-48) Monocytes % 7 % (0-10) Metamyelocytes % 3 % (0-0) Toxic Granulation Slight Toxic Vacuolation Slight Platelet Estimate Adequate (ADEQUATE) Platelet Clumps, EDTA Present Large Platelets Occ Anisocytosis Slight Sodium Level 134 mmol/L (136-145) 139 mmol/L (136-145) Potassium Level 4.8 mmol/L (3.5-5.1) 4.2 mmol/L (3.5-5.1) Chloride Level 92 mmol/L (98-107) 104 mmol/L (98-107) Carbon Dioxide Level 17 mmol/L (21-32) 20 mmol/L (21-32) Anion Gap 25 (6-14) 15 (6-14) Blood Urea Nitrogen 114 mg/dL (8-26) 95 mg/dL (8-26) Creatinine 3.7 mg/dL (0.7-1.3) 2.8 mg/dL (0.7-1.3) Estimated GFR (Cockcroft-Gault) 16.6 22.9 BUN/Creatinine Ratio 31 (6-20) 34 (6-20) Glucose Level 240 mg/dL (70-99) 156 mg/dL (70-99) Lactic Acid Level 7.8 mmol/L (0.4-2.0) 1.8 mmol/L (0.4-2.0) Calcium Level 9.9 mg/dL (8.5-10.1) 8.6 mg/dL (8.5-10.1) Total Bilirubin 0.7 mg/dL (0.2-1.0) 0.6 mg/dL (0.2-1.0) Aspartate Amino Transf (AST/SGOT) 44 U/L (15-37) 31 U/L (15-37) Alanine Aminotransferase (ALT/SGPT) 49 U/L (16-63) 32 U/L (16-63) Alkaline Phosphatase 184 U/L (46-116) 121 U/L (46-116) Troponin I Quantitative 0.024 ng/mL (0.000-0.055) Total Protein 7.6 g/dL (6.4-8.2) 6.4 g/dL (6.4-8.2) Albumin 2.4 g/dL (3.4-5.0) 1.6 g/dL (3.4-5.0) Albumin/Globulin Ratio 0.5 (1.0-1.7) 0.3 (1.0-1.7) Urine Collection Type Unknown Urine Color Yellow Urine Clarity Clear Urine pH 5.0 Urine Specific [place] 1.020 Urine Protein 30 mg/dL (NEG-TRACE) Urine Glucose (UA) 250 mg/dL (NEG) Urine Ketones (Stick) Negative mg/dL (NEG) Urine Blood Large (NEG) Urine Nitrite Negative (NEG) Urine Bilirubin Negative (NEG) Urine Urobilinogen Dipstick 0.2 mg/dL (0.2 mg/dL) Urine Leukocyte Esterase Large (NEG) Urine RBC 11-20 /HPF (0-2) Urine WBC Tntc /HPF (0-4) Urine Squamous Epithelial Cells Occ /LPF Urine Bacteria Few /HPF (0-FEW) Urine Granular Casts Moderate /HPF Objective: Assessment: Sepsis source gi and gu Leucocytosis source gi and gu Abdominal hernia with infected mesh with purulence, needs removal Scrotal infection ? 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
[2018-09-22] MEDS: MICAFUNGIN 100 MG in IV DEXTROSE 5% 100ML 100 ML IV SCH (13:03)
--- NOTE | 2018-09-22 13:04 | PDOC2 ---
UROLOGY CONSULT Date of Consult Date of Consult DATE: 09/22/18 TIME: 12:58 Identification/Chief Complaint Chief Complaint Scrotal swelling and drainage Source Source: Caregiver, Chart review, Patient History of Present Illness Reason for Visit: 63 year old male who is a very poor historian was admitted for sepsis. RN reports that problem was discovered this am during the bath they pulled several clumps of purulent, clumping drainage from a wound on top and below his scrotum. When asked about his scrotal wound, patient is not able to provide any meaningful information regarding how long he has had this problem or when it started to drain. He is also not able to effectively answer other questiosn regarding his health history other than "I have colon cancer." He does relate that his private area is hurting him and has been "worse today." than other days. Past Medical History Cardiovascular: HTN, Other Pulmonary: No pertinent hx GI: No pertinent hx Heme/Onc: Cancer Hepatobiliary: No pertinent hx Psych: No pertinent hx Musculoskeletal: Osteoarthritis Infectious disease: No pertinent hx Renal/: No pertinent hx Endocrine: No pertinent hx Past Surgical History Past Surgical History: Hernia Repair, Colon Resection Family History Family History: Adopted Social History No ALCOHOL: none Drugs: None Lives: Alone Current Problem List Problems: (1) Sepsis Current Medications Current Medications Current Medications Acetaminophen (Tylenol) 650 mg PRN Q4HRS PRN PO FEVER; Start 09/21/18 at 14:45 ; Stop 09/22/18 at 14:44 Ascorbic Acid (Vitamin C) 500 mg DAILY PO ; Start 09/22/18 at 12:00 Daptomycin 480 mg/ Sodium Chloride 50 ml @ 100 mls/hr Q48H IV ; Start 09/22/18 at 14:00 Heparin Sodium (Porcine) (Heparin Sodium) 5,000 unit Q8HRS SQ Last administered on 09/22/18at 05:54; Start 09/21/18 at 18:00; Stop 09/22/18 at 11:15 ; Status DC Info (Anti-Coagulation Monitoring By Pharmacy) 1 each PRN DAILY PRN MC SEE COMMENTS; Start 09/22/18 at 11:30 Info (CONTRAST GIVEN -- Rx MONITORING) 1 each PRN DAILY PRN MC SEE COMMENTS; Start 09/22/18 at 07:15; Stop 09/24/18 at 07:14 Iohexol (Omnipaque 240 Mg/ml) 50 ml 1X ONCE PO Last administered on 09/22/18at 07:15; Start 09/22/18 at 07:15; Stop 09/22/18 at 07:16; Status DC Linezolid/Dextrose 300 ml @ 300 mls/hr Q12HR IV ; Start 09/22/18 at 13:00 Lisinopril (Prinivil) 10 mg DAILY PO Last administered on 09/22/18at 11:24; Start 09/22/18 at 09:00 Meropenem 500 mg/ Sodium Chloride 50 ml @ 100 mls/hr Q8HRS IV ; Start 09/22/18 at 14:00 Micafungin Sodium 100 mg/Dextrose 100 ml @ 100 mls/hr Q24H IV ; Start 09/22/18 at 13:00 Multivitamins (Thera M Plus) 1 tab DAILY PO ; Start 09/22/18 at 12:00 Ondansetron HCl (Zofran) 4 mg PRN Q6HRS PRN IV NAUSEA/VOMITING; Start 09/21/18 at 16:45 Ondansetron HCl (Zofran) 4 mg PRN Q8HRS PRN IV NAUSEA/VOMITING; Start 09/21/18 at 14:45; Stop 09/21/18 at 16:31; Status DC Piperacillin Sod/ Tazobactam Sod (Zosyn Per Pharmacy) 1 each PRN DAILY PRN MC SEE COMMENTS; Start 09/21/18 at 18:00 Piperacillin Sod/ Tazobactam Sod 3.375 gm/Sodium Chloride 50 ml @ 100 mls/hr 1X ONCE IV Last administered on 09/21/18at 14:59; Start 09/21/18 at 14:30; Stop 09/21/18 at 14:59; Status DC Piperacillin Sod/ Tazobactam Sod 3.375 gm/Sodium Chloride 50 ml @ 100 mls/hr Q6HRS IV Last administered on 09/22/18at 05:48; Start 09/22/18 at 00:00; Stop at 12:40; Status DC Rivaroxaban (Xarelto) 15 mg DAILYWSUP PO ; Start 09/22/18 at 17:00 Sodium Chloride 1,000 ml @ 150 mls/hr Q6H40M IV Last administered on at 11:24; Start 09/21/18 at 14:40; Stop 09/22/18 at 14:39 Sodium Chloride 1,000 ml @ 1,000 mls/hr 1X ONCE IV Last administered on at 13:56; Start 09/21/18 at 14:00; Stop 09/21/18 at 14:59; Status DC Sodium Chloride 1,000 ml @ 1,000 mls/hr 1X ONCE IV Last administered on at 14:55; Start 09/21/18 at 14:30; Stop 09/21/18 at 15:29; Status DC Vancomycin HCl 250 ml @ 250 mls/hr 1X ONCE IV ; Start 09/21/18 at 14:45; Stop 09/21/18 at 15:44; Status UNV Vancomycin HCl (Vanco Per Pharmacy) 1 each PRN DAILY PRN MC SEE COMMENTS Last administered on 09/21/18at 18:36; Start 09/21/18 at 14:45; Stop 09/22/18 at 12:37 ; Status DC Vancomycin HCl (Vancomycin Trough Level) 1 each 1X ONCE MC ; Start 09/23/18 at 14:30; Stop 09/23/18 at 14:30; Status DC Vancomycin HCl 1.25 gm/Sodium Chloride 250 ml @ 166.667 mls/hr 1X ONCE IV Last administered on 09/21/18at 15:34; Start 09/21/18 at 15:00; Stop 09/21/18 at 16:29; Status DC Vancomycin HCl 1.25 gm/Sodium Chloride 250 ml @ 166.667 mls/hr Q24H IV ; Start 09/22/18 at 15:00; Stop 09/22/18 at 15:00; Status DC Allergies Allergies: Coded Allergies: No Known Drug Allergies (Unverified , 01/12/15) ROS Review Of Systems: Pt poor historian; unable to complete. RN complains that he has had drainage and swelling to scrotum since this am bath. Physical Exam Physical Exam: General: Pleasant, complains of pain to private area. Eyes: conjunctiva anicteric, eyes full range of motion ENT: moist oral mucosa, normal dentition Neck: Trachea midline, no masses Respiratory: unlabored breathing, not using accessory muscles Abdomen: Pt has red streaking up into left side of abdomen. : red scrotum draining purulent brown drainage from a puncture renetta wound just below and to right of phallus. Tunneling 1 cm to 3'oclock and 12 pm. Puncture renetta below scrotum 2 cm to 10 pm, noon and 6 o'clock. Skin: streaking on abdomen, swelling on scrotum with drainage. Vitals VITALS Vital Signs Date Time Temp Pulse Resp B/P (MAP) Pulse Ox O2 Delivery O2 Flow Rate FiO2 09/22/18 11:24 98 115/69 09/22/18 07:00 98.3 19 97 Room Air 98.3 Labs Labs Laboratory Tests Test 09/21/18 13:50 09/21/18 21:00 09/22/18 03:40 09/22/18 03:45 White Blood Count 23.2 x10^3/uL (4.0-11.0) 11.6 x10^3/uL (4.0-11.0) Red Blood Count 5.04 x10^6/uL (4.30-5.70) 4.14 x10^6/uL (4.30-5.70) Hemoglobin 13.7 g/dL (13.0-17.5) 11.3 g/dL (13.0-17.5) Hematocrit 42.9 % (39.0-53.0) 34.6 % (39.0-53.0) Mean Corpuscular Volume 85 fL (79-100) 84 fL (79-100) Mean Corpuscular Hemoglobin 27 pg (25-35) 27 pg (25-35) Mean Corpuscular Hemoglobin Concent 32 g/dL (31-37) 33 g/dL (31-37) Red Cell Distribution Width 18.8 % (11.5-14.5) 18.2 % (11.5-14.5) Platelet Count 349 x10^3/uL (140-400) 188 x10^3/uL (140-400) Neutrophils (%) (Auto) 95 % (31-73) 93 % (31-73) Lymphocytes (%) (Auto) 2 % (24-48) 3 % (24-48) Monocytes (%) (Auto) 3 % (0-9) 4 % (0-9) Eosinophils (%) (Auto) 0 % (0-3) 0 % (0-3) Basophils (%) (Auto) 0 % (0-3) 0 % (0-3) Neutrophils # (Auto) 22.0 x10^3uL (1.8-7.7) 10.7 x10^3uL (1.8-7.7) Lymphocytes # (Auto) 0.4 x10^3/uL (1.0-4.8) 0.4 x10^3/uL (1.0-4.8) Monocytes # (Auto) 0.7 x10^3/uL (0.0-1.1) 0.5 x10^3/uL (0.0-1.1) Eosinophils # (Auto) 0.0 x10^3/uL (0.0-0.7) 0.0 x10^3/uL (0.0-0.7) Basophils # (Auto) 0.1 x10^3/uL (0.0-0.2) 0.0 x10^3/uL (0.0-0.2) Segmented Neutrophils % 72 % (35-66) Band Neutrophils % 12 % (0-9) Lymphocytes % 6 % (24-48) Monocytes % 7 % (0-10) Metamyelocytes % 3 % (0-0) Toxic Granulation Slight Toxic Vacuolation Slight Platelet Estimate Adequate (ADEQUATE) Platelet Clumps, EDTA Present Large Platelets Occ Anisocytosis Slight Sodium Level 134 mmol/L (136-145) 139 mmol/L (136-145) Potassium Level 4.8 mmol/L (3.5-5.1) 4.2 mmol/L (3.5-5.1) Chloride Level 92 mmol/L (98-107) 104 mmol/L (98-107) Carbon Dioxide Level 17 mmol/L (21-32) 20 mmol/L (21-32) Anion Gap 25 (6-14) 15 (6-14) Blood Urea Nitrogen 114 mg/dL (8-26) 95 mg/dL (8-26) Creatinine 3.7 mg/dL (0.7-1.3) 2.8 mg/dL (0.7-1.3) Estimated GFR (Cockcroft-Gault) 16.6 22.9 BUN/Creatinine Ratio 31 (6-20) 34 (6-20) Glucose Level 240 mg/dL (70-99) 156 mg/dL (70-99) Lactic Acid Level 7.8 mmol/L (0.4-2.0) 1.8 mmol/L (0.4-2.0) Calcium Level 9.9 mg/dL (8.5-10.1) 8.6 mg/dL (8.5-10.1) Total Bilirubin 0.7 mg/dL (0.2-1.0) 0.6 mg/dL (0.2-1.0) Aspartate Amino Transf (AST/SGOT) 44 U/L (15-37) 31 U/L (15-37) Alanine Aminotransferase (ALT/SGPT) 49 U/L (16-63) 32 U/L (16-63) Alkaline Phosphatase 184 U/L (46-116) 121 U/L (46-116) Troponin I Quantitative 0.024 ng/mL (0.000-0.055) Total Protein 7.6 g/dL (6.4-8.2) 6.4 g/dL (6.4-8.2) Albumin 2.4 g/dL (3.4-5.0) 1.6 g/dL (3.4-5.0) Albumin/Globulin Ratio 0.5 (1.0-1.7) 0.3 (1.0-1.7) Urine Collection Type Unknown Urine Color Yellow Urine Clarity Clear Urine pH 5.0 Urine Specific [place] 1.020 Urine Protein 30 mg/dL (NEG-TRACE) Urine Glucose (UA) 250 mg/dL (NEG) Urine Ketones (Stick) Negative mg/dL (NEG) Urine Blood Large (NEG) Urine Nitrite Negative (NEG) Urine Bilirubin Negative (NEG) Urine Urobilinogen Dipstick 0.2 mg/dL (0.2 mg/dL) Urine Leukocyte Esterase Large (NEG) Urine RBC 11-20 /HPF (0-2) Urine WBC Tntc /HPF (0-4) Urine Squamous Epithelial Cells Occ /LPF Urine Bacteria Few /HPF (0-FEW) Urine Granular Casts Moderate /HPF Laboratory Tests Test 09/21/18 13:50 09/21/18 21:00 09/22/18 03:40 09/22/18 03:45 White Blood Count 23.2 x10^3/uL (4.0-11.0) 11.6 x10^3/uL (4.0-11.0) Red Blood Count 5.04 x10^6/uL (4.30-5.70) 4.14 x10^6/uL (4.30-5.70) Hemoglobin 13.7 g/dL (13.0-17.5) 11.3 g/dL (13.0-17.5) Hematocrit 42.9 % (39.0-53.0) 34.6 % (39.0-53.0) Mean Corpuscular Volume 85 fL (79-100) 84 fL (79-100) Mean Corpuscular Hemoglobin 27 pg (25-35) 27 pg (25-35) Mean Corpuscular Hemoglobin Concent 32 g/dL (31-37) 33 g/dL (31-37) Red Cell Distribution Width 18.8 % (11.5-14.5) 18.2 % (11.5-14.5) Platelet Count 349 x10^3/uL (140-400) 188 x10^3/uL (140-400) Neutrophils (%) (Auto) 95 % (31-73) 93 % (31-73) Lymphocytes (%) (Auto) 2 % (24-48) 3 % (24-48) Monocytes (%) (Auto) 3 % (0-9) 4 % (0-9) Eosinophils (%) (Auto) 0 % (0-3) 0 % (0-3) Basophils (%) (Auto) 0 % (0-3) 0 % (0-3) Neutrophils # (Auto) 22.0 x10^3uL (1.8-7.7) 10.7 x10^3uL (1.8-7.7) Lymphocytes # (Auto) 0.4 x10^3/uL (1.0-4.8) 0.4 x10^3/uL (1.0-4.8) Monocytes # (Auto) 0.7 x10^3/uL (0.0-1.1) 0.5 x10^3/uL (0.0-1.1) Eosinophils # (Auto) 0.0 x10^3/uL (0.0-0.7) 0.0 x10^3/uL (0.0-0.7) Basophils # (Auto) 0.1 x10^3/uL (0.0-0.2) 0.0 x10^3/uL (0.0-0.2) Segmented Neutrophils % 72 % (35-66) Band Neutrophils % 12 % (0-9) Lymphocytes % 6 % (24-48) Monocytes % 7 % (0-10) Metamyelocytes % 3 % (0-0) Toxic Granulation Slight Toxic Vacuolation Slight Platelet Estimate Adequate (ADEQUATE) Platelet Clumps, EDTA Present Large Platelets Occ Anisocytosis Slight Sodium Level 134 mmol/L (136-145) 139 mmol/L (136-145) Potassium Level 4.8 mmol/L (3.5-5.1) 4.2 mmol/L (3.5-5.1) Chloride Level 92 mmol/L (98-107) 104 mmol/L (98-107) Carbon Dioxide Level 17 mmol/L (21-32) 20 mmol/L (21-32) Anion Gap 25 (6-14) 15 (6-14) Blood Urea Nitrogen 114 mg/dL (8-26) 95 mg/dL (8-26) Creatinine 3.7 mg/dL (0.7-1.3) 2.8 mg/dL (0.7-1.3) Estimated GFR (Cockcroft-Gault) 16.6 22.9 BUN/Creatinine Ratio 31 (6-20) 34 (6-20) Glucose Level 240 mg/dL (70-99) 156 mg/dL (70-99) Lactic Acid Level 7.8 mmol/L (0.4-2.0) 1.8 mmol/L (0.4-2.0) Calcium Level 9.9 mg/dL (8.5-10.1) 8.6 mg/dL (8.5-10.1) Total Bilirubin 0.7 mg/dL (0.2-1.0) 0.6 mg/dL (0.2-1.0) Aspartate Amino Transf (AST/SGOT) 44 U/L (15-37) 31 U/L (15-37) Alanine Aminotransferase (ALT/SGPT) 49 U/L (16-63) 32 U/L (16-63) Alkaline Phosphatase 184 U/L (46-116) 121 U/L (46-116) Troponin I Quantitative 0.024 ng/mL (0.000-0.055) Total Protein 7.6 g/dL (6.4-8.2) 6.4 g/dL (6.4-8.2) Albumin 2.4 g/dL (3.4-5.0) 1.6 g/dL (3.4-5.0) Albumin/Globulin Ratio 0.5 (1.0-1.7) 0.3 (1.0-1.7) Urine Collection Type Unknown Urine Color Yellow Urine Clarity Clear Urine pH 5.0 Urine Specific [place] 1.020 Urine Protein 30 mg/dL (NEG-TRACE) Urine Glucose (UA) 250 mg/dL (NEG) Urine Ketones (Stick) Negative mg/dL (NEG) Urine Blood Large (NEG) Urine Nitrite Negative (NEG) Urine Bilirubin Negative (NEG) Urine Urobilinogen Dipstick 0.2 mg/dL (0.2 mg/dL) Urine Leukocyte Esterase Large (NEG) Urine RBC 11-20 /HPF (0-2) Urine WBC Tntc /HPF (0-4) Urine Squamous Epithelial Cells Occ /LPF Urine Bacteria Few /HPF (0-FEW) Urine Granular Casts Moderate /HPF Images Images CT ABD/Pelvis IMPRESSION: 1. There is extensive soft tissue density and gas along the left lateral abdominal wall and flank, and extending inferiorly into the left inguinal region and left scrotum. In this clinical context, findings are most compatible with soft tissue infection with gas-forming organism. Necrotizing fasciitis should be considered. 2. Multiple low-density lesions in the liver. Most were seen previously, but at least one is new and measures greater than simple fluid density. This could still represent a complex cyst or benign hemangioma. Further evaluation with follow-up CT scan or MRI could be of benefit when clinically feasible. 3. Cholelithiasis. 4. Stable left adrenal nodule. Assessment/Plan Assessment/Plan Pt to remain NPO. [employer] did attempt to wash out scrotal wounds with 2 NS flushes, and got a few cc return of very purulent, etremely foul smelling drainage. Tunneling was noted ( please see PE this note). Message sent to surgeon regarding patient condition=Scrotal I and D scheduled for this afternoon at 4 pm. RN informed. JOSE COLON APRN Sep 22, 2018 13:04
--- NOTE | 2018-09-22 13:04 | PDOC2 ---
CONSULT Date of Consult Date of Consult DATE: 09/22/18 TIME: 12:47 Reason for Consult Reason for Consult: THAD Referring Physician Referring Physician: YAW Identification/Chief Complaint Chief Complaint WEAKNESS Source Source: Chart review, Patient History of Present Illness Reason for Visit: THIS IS A 63 YR OLD WITH WEAKNESS. HX POS FOR COLON CA FOR WHICH HE HAS BEEN UNDERGOING CHEMOTHERAPY. RECENTLY DX WITH AN UTI AND WAS PLACED ON AN ANTIBIOTICS. NOT SURE WHICH ANTIBIOTIC. LABS POS FOR THAD WITH A BUN OF 117 AND CR OF 3.7 WITH AN AGMA. HAS CKD STAGE 3 WITH CR OF ABOUT 1.4 AT BASELINE. ALSO HAS HX OF DEHYDRATION RELATED THAD IN 2015 WHEN HE NEEDED ACUTE HD. NO CURRENTLY NEPHROTOXINS NOTED. HE HAS NOT BEEN EATING WELL AND HAS NOTED A DECREASE IN HIS UO. OTHER COMPLAINTS INCLUDE LEFT SIDED FLANK PAIN AND IMAGING STUDY IS CONCERNING FOR A SOFT TISSUE INFECTION. WBC IS HIGH AND PT ALSO HAS LACTIC ACIDOSIS. THERE IS CONCERNS OF AN INFECTED MESH USED FOR HIS HERNIA REPAIR. SURGERY AND ID AND FOLLOWING THE PT WELL Past Medical History Cardiovascular: HTN, Other Pulmonary: No pertinent hx GI: No pertinent hx Heme/Onc: Cancer Hepatobiliary: No pertinent hx Psych: No pertinent hx Musculoskeletal: Osteoarthritis Infectious disease: No pertinent hx Renal/: Chronic renal insuff, Acute renal failure Endocrine: No pertinent hx Past Surgical History Past Surgical History HX OF TEMP HD CATHETER PLACEMENT Past Surgical History: Hernia Repair, Colon Resection Family History Family History: Adopted Social History No ALCOHOL: none Drugs: None Lives: Alone Current Problem List Problem List Problems Medical Problems: (1) Sepsis Status: Acute Current Medications Current Medications Current Medications Sodium Chloride 1,000 ml @ 1,000 mls/hr 1X ONCE IV Last administered on at 13:56; Start 09/21/18 at 14:00; Stop 09/21/18 at 14:59; Status DC Piperacillin Sod/ Tazobactam Sod 3.375 gm/Sodium Chloride 50 ml @ 100 mls/hr 1X ONCE IV Last administered on 09/21/18at 14:59; Start 09/21/18 at 14:30; Stop 09/21/18 at 14:59; Status DC Sodium Chloride 1,000 ml @ 1,000 mls/hr 1X ONCE IV Last administered on at 14:55; Start 09/21/18 at 14:30; Stop 09/21/18 at 15:29; Status DC Ondansetron HCl (Zofran) 4 mg PRN Q8HRS PRN IV NAUSEA/VOMITING; Start 09/21/18 at 14:45; Stop 09/21/18 at 16:31; Status DC Sodium Chloride 1,000 ml @ 150 mls/hr Q6H40M IV Last administered on at 11:24; Start 09/21/18 at 14:40; Stop 09/22/18 at 14:39 Acetaminophen (Tylenol) 650 mg PRN Q4HRS PRN PO FEVER; Start 09/21/18 at 14:45 ; Stop 09/22/18 at 14:44 Vancomycin HCl 250 ml @ 250 mls/hr 1X ONCE IV ; Start 09/21/18 at 14:45; Stop 09/21/18 at 15:44; Status UNV Vancomycin HCl (Vanco Per Pharmacy) 1 each PRN DAILY PRN MC SEE COMMENTS Last administered on 09/21/18at 18:36; Start 09/21/18 at 14:45; Stop 09/22/18 at 12:37 ; Status DC Vancomycin HCl 1.25 gm/Sodium Chloride 250 ml @ 166.667 mls/hr 1X ONCE IV Last administered on 09/21/18at 15:34; Start 09/21/18 at 15:00; Stop 09/21/18 at 16:29; Status DC Ondansetron HCl (Zofran) 4 mg PRN Q6HRS PRN IV NAUSEA/VOMITING; Start 09/21/18 at 16:45 Piperacillin Sod/ Tazobactam Sod (Zosyn Per Pharmacy) 1 each PRN DAILY PRN MC SEE COMMENTS; Start 09/21/18 at 18:00 Lisinopril (Prinivil) 10 mg DAILY PO Last administered on 09/22/18at 11:24; Start 09/22/18 at 09:00 Piperacillin Sod/ Tazobactam Sod 3.375 gm/Sodium Chloride 50 ml @ 100 mls/hr Q6HRS IV Last administered on 09/22/18at 05:48; Start 09/22/18 at 00:00; Stop at 12:40; Status DC Heparin Sodium (Porcine) (Heparin Sodium) 5,000 unit Q8HRS SQ Last administered on 09/22/18at 05:54; Start 09/21/18 at 18:00; Stop 09/22/18 at 11:15 ; Status DC Vancomycin HCl 1.25 gm/Sodium Chloride 250 ml @ 166.667 mls/hr Q24H IV ; Start 09/22/18 at 15:00; Stop 09/22/18 at 15:00; Status DC Vancomycin HCl (Vancomycin Trough Level) 1 each 1X ONCE MC ; Start 09/23/18 at 14:30; Stop 09/23/18 at 14:30; Status DC Iohexol (Omnipaque 240 Mg/ml) 50 ml 1X ONCE PO Last administered on 09/22/18at 07:15; Start 09/22/18 at 07:15; Stop 09/22/18 at 07:16; Status DC Info (CONTRAST GIVEN -- Rx MONITORING) 1 each PRN DAILY PRN MC SEE COMMENTS; Start 09/22/18 at 07:15; Stop 09/24/18 at 07:14 Ascorbic Acid (Vitamin C) 500 mg DAILY PO ; Start 09/22/18 at 12:00 Multivitamins (Thera M Plus) 1 tab DAILY PO ; Start 09/22/18 at 12:00 Rivaroxaban (Xarelto) 15 mg DAILYWSUP PO ; Start 09/22/18 at 17:00 Info (Anti-Coagulation Monitoring By Pharmacy) 1 each PRN DAILY PRN MC SEE COMMENTS; Start 09/22/18 at 11:30 Micafungin Sodium 100 mg/Dextrose 100 ml @ 100 mls/hr Q24H IV ; Start 09/22/18 at 13:00 Linezolid/Dextrose 300 ml @ 300 mls/hr Q12HR IV ; Start 09/22/18 at 13:00 Daptomycin 480 mg/ Sodium Chloride 50 ml @ 100 mls/hr Q48H IV ; Start 09/22/18 at 14:00 Meropenem 500 mg/ Sodium Chloride 50 ml @ 100 mls/hr Q8HRS IV ; Start 09/22/18 at 14:00; Status UNV Active Scripts Active Potassium Chloride 20 Meq Tab.er.prt 1 Tab PO DAILY Reported Lisinopril 20 Mg Tablet 10 Mg PO DAILY Xarelto (Rivaroxaban) 20 Mg Tablet 20 Mg PO DAILY Allergies Allergies: Coded Allergies: No Known Drug Allergies (Unverified , 01/12/15) ROS Review of System WEAK General: YES: Fatigue, Malaise, Appetite PSYCHOLOGICAL ROS: YES: Anxiety, Depression Eyes: Yes Decreased vision HEENT: YES: Misty ALLERGY AND IMMUNOLOGY: YES: Seasonal Allergies Respiratory: YES: Cough Cardiovascular: yes Lt Headedness Gastrointestinal: Yes Nausea, Yes Constipation Genitourinary: YES Dysuria, YES Other (ANURIA) Musculoskeletal: Yes Muscular Weakness Neurological: Yes Weakness Skin: Yes Dry Skin Physical Exam General: Alert, Oriented X3, Cooperative, No acute distress HEENT: Atraumatic, PERRLA, EOMI, Other (DRY MUCOSA) Lungs: Clear to auscultation Heart: Regular rate, Normal S1, Normal S2, Other (TACHYCARDIA) Abdomen: Normal bowel sounds, Soft Extremities: No clubbing Skin: No breakdown Neuro: Normal speech, Sensation intact Psych/Mental Status: Mental status NL, Mood NL MUSCULOSKELETAL: No joint tenderness, No deformity, No swelling Vitals VITALS Vital Signs Date Time Temp Pulse Resp B/P (MAP) Pulse Ox O2 Delivery O2 Flow Rate FiO2 09/22/18 11:24 98 115/69 09/22/18 07:00 98.3 19 97 Room Air 98.3 Labs Labs Laboratory Tests Test 09/21/18 13:50 09/21/18 21:00 09/22/18 03:40 09/22/18 03:45 White Blood Count 23.2 x10^3/uL (4.0-11.0) 11.6 x10^3/uL (4.0-11.0) Red Blood Count 5.04 x10^6/uL (4.30-5.70) 4.14 x10^6/uL (4.30-5.70) Hemoglobin 13.7 g/dL (13.0-17.5) 11.3 g/dL (13.0-17.5) Hematocrit 42.9 % (39.0-53.0) 34.6 % (39.0-53.0) Mean Corpuscular Volume 85 fL (79-100) 84 fL (79-100) Mean Corpuscular Hemoglobin 27 pg (25-35) 27 pg (25-35) Mean Corpuscular Hemoglobin Concent 32 g/dL (31-37) 33 g/dL (31-37) Red Cell Distribution Width 18.8 % (11.5-14.5) 18.2 % (11.5-14.5) Platelet Count 349 x10^3/uL (140-400) 188 x10^3/uL (140-400) Neutrophils (%) (Auto) 95 % (31-73) 93 % (31-73) Lymphocytes (%) (Auto) 2 % (24-48) 3 % (24-48) Monocytes (%) (Auto) 3 % (0-9) 4 % (0-9) Eosinophils (%) (Auto) 0 % (0-3) 0 % (0-3) Basophils (%) (Auto) 0 % (0-3) 0 % (0-3) Neutrophils # (Auto) 22.0 x10^3uL (1.8-7.7) 10.7 x10^3uL (1.8-7.7) Lymphocytes # (Auto) 0.4 x10^3/uL (1.0-4.8) 0.4 x10^3/uL (1.0-4.8) Monocytes # (Auto) 0.7 x10^3/uL (0.0-1.1) 0.5 x10^3/uL (0.0-1.1) Eosinophils # (Auto) 0.0 x10^3/uL (0.0-0.7) 0.0 x10^3/uL (0.0-0.7) Basophils # (Auto) 0.1 x10^3/uL (0.0-0.2) 0.0 x10^3/uL (0.0-0.2) Segmented Neutrophils % 72 % (35-66) Band Neutrophils % 12 % (0-9) Lymphocytes % 6 % (24-48) Monocytes % 7 % (0-10) Metamyelocytes % 3 % (0-0) Toxic Granulation Slight Toxic Vacuolation Slight Platelet Estimate Adequate (ADEQUATE) Platelet Clumps, EDTA Present Large Platelets Occ Anisocytosis Slight Sodium Level 134 mmol/L (136-145) 139 mmol/L (136-145) Potassium Level 4.8 mmol/L (3.5-5.1) 4.2 mmol/L (3.5-5.1) Chloride Level 92 mmol/L (98-107) 104 mmol/L (98-107) Carbon Dioxide Level 17 mmol/L (21-32) 20 mmol/L (21-32) Anion Gap 25 (6-14) 15 (6-14) Blood Urea Nitrogen 114 mg/dL (8-26) 95 mg/dL (8-26) Creatinine 3.7 mg/dL (0.7-1.3) 2.8 mg/dL (0.7-1.3) Estimated GFR (Cockcroft-Gault) 16.6 22.9 BUN/Creatinine Ratio 31 (6-20) 34 (6-20) Glucose Level 240 mg/dL (70-99) 156 mg/dL (70-99) Lactic Acid Level 7.8 mmol/L (0.4-2.0) 1.8 mmol/L (0.4-2.0) Calcium Level 9.9 mg/dL (8.5-10.1) 8.6 mg/dL (8.5-10.1) Total Bilirubin 0.7 mg/dL (0.2-1.0) 0.6 mg/dL (0.2-1.0) Aspartate Amino Transf (AST/SGOT) 44 U/L (15-37) 31 U/L (15-37) Alanine Aminotransferase (ALT/SGPT) 49 U/L (16-63) 32 U/L (16-63) Alkaline Phosphatase 184 U/L (46-116) 121 U/L (46-116) Troponin I Quantitative 0.024 ng/mL (0.000-0.055) Total Protein 7.6 g/dL (6.4-8.2) 6.4 g/dL (6.4-8.2) Albumin 2.4 g/dL (3.4-5.0) 1.6 g/dL (3.4-5.0) Albumin/Globulin Ratio 0.5 (1.0-1.7) 0.3 (1.0-1.7) Urine Collection Type Unknown Urine Color Yellow Urine Clarity Clear Urine pH 5.0 Urine Specific Gibson 1.020 Urine Protein 30 mg/dL (NEG-TRACE) Urine Glucose (UA) 250 mg/dL (NEG) Urine Ketones (Stick) Negative mg/dL (NEG) Urine Blood Large (NEG) Urine Nitrite Negative (NEG) Urine Bilirubin Negative (NEG) Urine Urobilinogen Dipstick 0.2 mg/dL (0.2 mg/dL) Urine Leukocyte Esterase Large (NEG) Urine RBC 11-20 /HPF (0-2) Urine WBC Tntc /HPF (0-4) Urine Squamous Epithelial Cells Occ /LPF Urine Bacteria Few /HPF (0-FEW) Urine Granular Casts Moderate /HPF Laboratory Tests Test 09/21/18 13:50 09/21/18 21:00 09/22/18 03:40 09/22/18 03:45 White Blood Count 23.2 x10^3/uL (4.0-11.0) 11.6 x10^3/uL (4.0-11.0) Red Blood Count 5.04 x10^6/uL (4.30-5.70) 4.14 x10^6/uL (4.30-5.70) Hemoglobin 13.7 g/dL (13.0-17.5) 11.3 g/dL (13.0-17.5) Hematocrit 42.9 % (39.0-53.0) 34.6 % (39.0-53.0) Mean Corpuscular Volume 85 fL (79-100) 84 fL (79-100) Mean Corpuscular Hemoglobin 27 pg (25-35) 27 pg (25-35) Mean Corpuscular Hemoglobin Concent 32 g/dL (31-37) 33 g/dL (31-37) Red Cell Distribution Width 18.8 % (11.5-14.5) 18.2 % (11.5-14.5) Platelet Count 349 x10^3/uL (140-400) 188 x10^3/uL (140-400) Neutrophils (%) (Auto) 95 % (31-73) 93 % (31-73) Lymphocytes (%) (Auto) 2 % (24-48) 3 % (24-48) Monocytes (%) (Auto) 3 % (0-9) 4 % (0-9) Eosinophils (%) (Auto) 0 % (0-3) 0 % (0-3) Basophils (%) (Auto) 0 % (0-3) 0 % (0-3) Neutrophils # (Auto) 22.0 x10^3uL (1.8-7.7) 10.7 x10^3uL (1.8-7.7) Lymphocytes # (Auto) 0.4 x10^3/uL (1.0-4.8) 0.4 x10^3/uL (1.0-4.8) Monocytes # (Auto) 0.7 x10^3/uL (0.0-1.1) 0.5 x10^3/uL (0.0-1.1) Eosinophils # (Auto) 0.0 x10^3/uL (0.0-0.7) 0.0 x10^3/uL (0.0-0.7) Basophils # (Auto) 0.1 x10^3/uL (0.0-0.2) 0.0 x10^3/uL (0.0-0.2) Segmented Neutrophils % 72 % (35-66) Band Neutrophils % 12 % (0-9) Lymphocytes % 6 % (24-48) Monocytes % 7 % (0-10) Metamyelocytes % 3 % (0-0) Toxic Granulation Slight Toxic Vacuolation Slight Platelet Estimate Adequate (ADEQUATE) Platelet Clumps, EDTA Present Large Platelets Occ Anisocytosis Slight Sodium Level 134 mmol/L (136-145) 139 mmol/L (136-145) Potassium Level 4.8 mmol/L (3.5-5.1) 4.2 mmol/L (3.5-5.1) Chloride Level 92 mmol/L (98-107) 104 mmol/L (98-107) Carbon Dioxide Level 17 mmol/L (21-32) 20 mmol/L (21-32) Anion Gap 25 (6-14) 15 (6-14) Blood Urea Nitrogen 114 mg/dL (8-26) 95 mg/dL (8-26) Creatinine 3.7 mg/dL (0.7-1.3) 2.8 mg/dL (0.7-1.3) Estimated GFR (Cockcroft-Gault) 16.6 22.9 BUN/Creatinine Ratio 31 (6-20) 34 (6-20) Glucose Level 240 mg/dL (70-99) 156 mg/dL (70-99) Lactic Acid Level 7.8 mmol/L (0.4-2.0) 1.8 mmol/L (0.4-2.0) Calcium Level 9.9 mg/dL (8.5-10.1) 8.6 mg/dL (8.5-10.1) Total Bilirubin 0.7 mg/dL (0.2-1.0) 0.6 mg/dL (0.2-1.0) Aspartate Amino Transf (AST/SGOT) 44 U/L (15-37) 31 U/L (15-37) Alanine Aminotransferase (ALT/SGPT) 49 U/L (16-63) 32 U/L (16-63) Alkaline Phosphatase 184 U/L (46-116) 121 U/L (46-116) Troponin I Quantitative 0.024 ng/mL (0.000-0.055) Total Protein 7.6 g/dL (6.4-8.2) 6.4 g/dL (6.4-8.2) Albumin 2.4 g/dL (3.4-5.0) 1.6 g/dL (3.4-5.0) Albumin/Globulin Ratio 0.5 (1.0-1.7) 0.3 (1.0-1.7) Urine Collection Type Unknown Urine Color Yellow Urine Clarity Clear Urine pH 5.0 Urine Specific Gibson 1.020 Urine Protein 30 mg/dL (NEG-TRACE) Urine Glucose (UA) 250 mg/dL (NEG) Urine Ketones (Stick) Negative mg/dL (NEG) Urine Blood Large (NEG) Urine Nitrite Negative (NEG) Urine Bilirubin Negative (NEG) Urine Urobilinogen Dipstick 0.2 mg/dL (0.2 mg/dL) Urine Leukocyte Esterase Large (NEG) Urine RBC 11-20 /HPF (0-2) Urine WBC Tntc /HPF (0-4) Urine Squamous Epithelial Cells Occ /LPF Urine Bacteria Few /HPF (0-FEW) Urine Granular Casts Moderate /HPF Assessment/Plan Assessment/Plan IMP THAD WITH CR OF 3.7 AND HX OF THAD REQUIRING HD CKD STAGE 3 WITH CR OF 1.4 SEPSIS UTI LEUCOCYTOSIS SEPSIS AGMA COLON CA AND CHEMO EXTRACELLULAR VOLUME DEPLETION PROB INFECTED MESH AND SOFT TISSUE INFECTION LEFT FLANK PLAN ANTIBIOTICS HYDRATION HOLD HOME LISINOPRIL PRESSORS IF NEEDED WILL FOLLOW DAVE RAZA MD Sep 22, 2018 13:04
[2018-09-22] MEDS ORDERED: DAPTOmycin (GENERIC) IVPB 480 MG in IV NORMAL SALINE 50ML 50 ML IV SCH (14:00)
[2018-09-22] MEDS ORDERED: BUPIVAC MPF-EPI 0.5%-1:200000 30 ML VIAL. ONE (14:34)
[2018-09-22] MEDS ORDERED: BUPIVACAINE MPF 0.5% 30 ML VIAL. ONE (14:35)
--- NOTE | 2018-09-22 14:45 | NUR ---
Wound Care: Pt to surgery today, will follow up pending surgical orders
[2018-09-22] MEDS: MEROPENEM 500 MG in IV NORMAL SALINE 50ML 50 ML IV SCH ×2 (14:56→22:39)
[2018-09-22] MEDS ORDERED: VANCOMYCIN 1.25 GM in IV NORMAL SALINE 250ML 250 ML IV SCH (15:00)
[2018-09-22] MEDS ORDERED: LIDOCAINE 2% PF 5 ML VIAL. ONE (15:56)
[2018-09-22] MEDS ORDERED: PROPOFOL 20 ML IV ONE (15:56)
[2018-09-22] MEDS ORDERED: ONDANSETRON PF 4 MG/2 ML VIAL. ONE (16:00)
[2018-09-22] MEDS ORDERED: DEXAMETHASONE SOD PHOS 20 MG/5 ML VIAL. ONE (16:00)
[2018-09-22] MEDS ORDERED: PHENYLEPHRINE in 0.9% NACL PF 1 MG/10 ML SYRINGE. IV ONE (16:17)
[2018-09-22] MEDS ORDERED: fentaNYL PF VIAL 100 MCG/2 ML VIAL ONE (16:30)
[2018-09-22] MEDS ORDERED: SEVOFLURANE 31 TO 60 MINUTES. IH ONE (16:53)
[2018-09-22] MEDS ORDERED: RIVAROXABAN 15 MG TABLET. PO SCH (17:00)
--- NOTE | 2018-09-22 17:19 | PDOC4 ---
OPERATIVE NOTE Date: Date: Sep 22, 2018 Pre-Op Diagnosis: Ivan's Gangrene Post-Op Diagnosis: same Procedure Performed: Inc and Drainage and packing of extensive scrotal and L inguinal abscess Surgeon: rohit Blood Loss: get Specimans Obtained: none Findings: extensive necrotic tissue in the Left scrotum extending into L ing canal and into the supra-pubic subcutaneous tissue. The abscess also extended into the R upper scrotum and into the perineal area. He was also in Urinary Retention ( 700cc) Operative Note: EBL Pt admin'd GA and placed in frog-leg position. The genital area was prepped with Betadine. A prather was placed. The L scrotal compartment was opened. There was spontaneous drainage of pus from the perineal aspect of the L scrotal abscess. This was dissected and involved the cord of the L testis going into the inguinal canal. The inguinal area was digitally explored and all necrotic adhesions were . The scrotal aspect of the abscess extended the the R base of the penis and the R inner scrotal tissue had varying amts of necrotic tissue which was debided. After extensive debridement at all sites, the areas were thoroughly irrigated with NS, 1" drains were placed (2) and the cavities were then packed with betadine soaked Kerlix (2). Safety pins were placed on each end othe the Kerlix rolls as well as on the end of each nolberto. The scrotal flaps were approximated with a 2-0 Nylon stitch. EBL was 50cc. The patient was awakened and transferred to . He remained stable throughout. VANITA OLVERA MD Sep 22, 2018 17:18
[2018-09-22] MEDS ORDERED: MAG HYDROX/ALUMINUM HYD/SIMETH 30 ML ORAL.SUSP PO PRN (17:30)
[2018-09-22] MEDS ORDERED: 0.9 % SODIUM CHLORIDE 10 ML DISP.SYRIN. IV PRN (17:30)
[2018-09-22] MEDS ORDERED: PROCHLORPERAZINE 10 MG/2 ML VIAL. IV PRN (17:30)
[2018-09-22] MEDS ORDERED: ONDANSETRON PF 4 MG/2 ML VIAL. IV PRN (17:30)
[2018-09-22] MEDS ORDERED: NALOXONE 0.4 MG/ML VIAL. IV PRN (17:30)
[2018-09-22] MEDS: HYDROcodone/APAP 5/325MG 1 TAB TABLET PO PRN (18:17)
[2018-09-22] MEDS: IV 1/2 NORMAL SALINE 1,000 ML IV SCH (19:00)
[2018-09-22] MEDS: DOCUSATE SODIUM 100 MG CAPSULE. PO SCH (21:00)
--- NOTE | 2018-09-23 02:25 | CONS ---
DATE OF CONSULTATION: REFERRING PHYSICIAN: Dr. Silver REASON FOR CONSULTATION: Sepsis. HISTORY OF PRESENT ILLNESS: A 63-year-old male presented to the ER on 09/21/2018 with complaints of generalized weakness and not feeling well. The patient has history of colon cancer, receiving chemotherapy monthly and also has infected mesh for which he has been following with Dr. Clarke at [facility], but since he has been on chemo they are not able to remove the infected mesh. The patient has drainage off and on. He also had UA, which showed pyuria. Lactic acid was high. He had leukocytosis. He had decreased p.o. intake and had a decrease in the urine output. He had been on Bactrim about 4 weeks ago when he presented to urgent care at [facility]. He has not been seen at for the last 4-5 months. He was started on empiric vanc and Zosyn. He received IV fluids. His lactate has responded well. His white count has come down to 11.6 this morning. Blood cultures are pending. A swab culture from the purulent drainage from abdominal wound is pending. The patient had a CT of the abdomen and pelvis done, which was reported this morning with extensive soft tissue density and gas along the left lateral abdominal wall and flank and extending inferiorly into the left inguinal region and left scrotum. In the context, findings are most compatible with soft tissue infection with gas forming organism, necrotizing fascitis, multiple low density in the liver, most were previously seen, but one measures new, likely complex cyst or benign hemangioma, cholelithiasis, stable left adrenal nodule. General Surgery is going to reevaluate the patient again this morning. He says he still feels weak. Denies any headache, sore throat, difficulty swallowing, shortness of breath, cough, and rash. Has some abdominal discomfort mainly on the left lateral abdomen and the scrotal area. Denies any diarrhea. Denies any joint pain. PAST MEDICAL HISTORY: 1. Colon cancer, on chemotherapy. 2. Immunosuppression. 3. History of infected abdominal hernia mesh for which he is following up at [facility] by General Surgery, but nothing could be done because he is on chemotherapy. 4. History of UTI. 5. History of antibiotics a month ago. 6. Hypertension. 7. Osteoarthritis. PAST SURGICAL HISTORY: Colon resection, indwelling colostomy, hernia repair with mesh infected. FAMILY HISTORY: Adopted. SOCIAL HISTORY: Denies smoking, ETOH or illicit drug use. CURRENT MEDICATION: IV vanc and Zosyn. Other medications reviewed in medication list. ALLERGIES: No known drug allergies. REVIEW OF SYSTEMS: Negative except for above in HPI. PHYSICAL EXAMINATION: GENERAL: Alert, weak appearing male, lying in bed comfortably, cooperative, in no acute distress. HEENT: Normocephalic, atraumatic. Anicteric. Oral mucosa moist. No thrush. NECK: Supple. LUNGS: Clear bilaterally. HEART: S1, S2, tachycardia. No murmurs. ABDOMEN: Soft. Two midline wounds open purulent drainage at previous hernia surgery mesh site. Tenderness to the left lower quadrant. Ileostomy in place. Draining lt ingunial ,scrotal , indurated, tenderness present . EXTREMITIES: No edema. No cyanosis. PSYCHIATRIC: Appropriate mood and affect. LABORATORY DATA: WBC 11.6, was 23.2; hemoglobin 11.3, hematocrit 34.6, platelets 188. Sodium 136, potassium 4.2, chloride 104, bicarb 20, BUN 95, creatinine 2.8, glucose 156. Lactate 7.8, now is 1.8. Calcium 8.6, total bili 0.6, AST 31, ALT 32, alk phos 122, total protein 6.4, albumin 1.6. UA shows large leukocyte esterase, too numerous to count wbc's, large blood. Micro: Blood culture pending. Urine culture pending. IMAGING DATA: CT of the abdomen and pelvis: There is extensive soft tissue density and gas along the left lateral abdominal wall and flank and extending inferiorly into the left inguinal region and left scrotum. In the clinical context, findings are most compatible with soft tissue infection with gas forming organism, necrotizing fasciitis should be considered, multiple low density lesions in the liver, most were seen previously, but at least one is new and measures greater than simple fluid density. This could represent a complex cyst or benign hemangioma. Further evaluation with followup CT or MRI could be of benefit when clinically feasible, cholelithiasis, stable left adrenal nodule. ASSESSMENT: 1. Severe sepsis, source 2. Fever. 3. Leukocytosis. 4. Lactic acidosis. 5. Lt inguinal scrotal abscess 6. Abdominal hernia mesh repair with infection, purulent drainage. [address] with extensive soft tissue density and gas along the left lateral wall and flank inferiorly into the left inguinal region and left scrotum. 8. Left sided abdominal pain.. 9. History of colon cancer, on chemotherapy. 10. Immunosuppression. 11. Hypertension. 12. Degenerative joint disease. 13. History of recurrent urinary tract infections. 14. Pyuria, urine culture pending here. RECOMMENDATIONS: 1. Discontinue IV vancomycin due to THAD on CKD. Start on daptomycin. 2. Add Zyvox for toxin binding. 3. Change Zosyn to meropenem. 4. Start the patient on micafungin. 5. General Surgery is going to reevaluate the patient again this morning. 6. Consult Urology.Will likely need surgery 7. Follow up labs in a.m. and cultures. 8. Continue supportive care. 9. Discussed with RN. Thank you, Dr. Silver, for consulting Infectious Disease to participate in this patient's care. If you have any questions, do not hesitate to contact me. ARMINDA HENNESSY MD DR: SUDHA/you JOB#: [id number] / [id number] MELISSA
[2018-09-23] MEDS: IV 1/2 NORMAL SALINE 1,000 ML IV SCH ×2 (02:26→15:37)
[2018-09-23 03:00] VITALS: BP 120/72
[2018-09-23] MEDS: MEROPENEM 500 MG in IV NORMAL SALINE 50ML 50 ML IV SCH ×3 (05:34→20:37)
[2018-09-23] MEDS: HEPARIN for SUB-Q USE 5,000 UNIT/ML VIAL. SQ SCH (05:39)
[2018-09-23] MEDS: HYDROcodone/APAP 5/325MG 1 TAB TABLET PO PRN (05:40)
[2018-09-23 07:00] VITALS: BP 109/55
[2018-09-23] MEDS: MULTIVITAMIN with MINERAL TABLET. PO SCH (08:17)
[2018-09-23] MEDS: DOCUSATE SODIUM 100 MG CAPSULE. PO SCH ×2 (08:18→20:37)
[2018-09-23] MEDS: ASCORBIC ACID 500 MG TABLET PO SCH (08:18)
--- NOTE | 2018-09-23 08:26 | NUR ---
Pt went down to surgery (09/22/18) for I & D scrotal abscess. Will await new PT orders before proceeding with therapy. Please order when pt deemed appropriate. Addendum: 09/23/18 at 0827 by ALEJANDRO SWENSON, PT PT Amended: Links added.
--- NOTE | 2018-09-23 09:11 | PDOC ---
SUBJECTIVE Subjective Pain is under control with medication and ice packs. OBJECTIVE Objective Physical Exam: General appearance: Alert and Oriented Head: Normocephalic, without obvious abnormality Eyes: conjunctivae/corneas clear. PERRL, EOM's intact. Fundi benign Lungs: Regular respirations, non labored breathing Abdomen: soft, colostomy in place. Pelvic: Saravia in place draining clear yellow urine. Pt also has abd dressings in place with small amount of drainage; still clean overall. Ice pack over genitalia. Psych: More communicative today, states pain under control. Denies anxiety, depression. Vital Signs Vital Signs Date Time Temp Pulse Resp B/P (MAP) Pulse Ox O2 Delivery O2 Flow Rate FiO2 09/23/18 07:00 98.6 62 17 109/55 (73) 100 Room Air 98.6 09/23/18 05:40 97 Nasal Cannula 2.0 09/23/18 03:00 98.6 73 18 120/72 (88) 97 Nasal Cannula 2.0 98.6 09/22/18 22:54 72 96/55 (69) 100 09/22/18 21:00 79 102/60 (74) 100 09/22/18 20:00 86 111/60 (77) 100 09/22/18 20:00 Nasal Cannula 2.0 09/22/18 19:30 90 114/62 (79) 97 09/22/18 19:00 116/65 (82) 98 09/22/18 18:45 19 119/58 (78) 98 Room Air 09/22/18 18:30 19 110/62 (78) 99 Room Air 09/22/18 18:17 17 98 Room Air 09/22/18 18:15 98.3 19 101/62 (75) 99 Room Air 98.3 09/22/18 18:10 Mask 2 09/22/18 18:10 98.1 79 20 107/60 97 Nasal Cannula 2 98.1 09/22/18 17:55 98.1 84 23 111/64 97 Nasal Cannula 2 98.1 09/22/18 17:40 97.4 88 20 103/58 99 Nasal Cannula 2 97.4 09/22/18 17:25 97.4 81 23 105/52 97 Nasal Cannula 2 97.4 09/22/18 17:10 97.4 81 15 103/55 99 Simple Mask 10 97.4 09/22/18 17:10 Mask 10 09/22/18 14:50 99 100 26 107/64 100 Room Air 99.0 09/22/18 11:24 98 115/69 I & O Intake and Output 09/23/18 07:00 Intake Total 2090 ml Output Total 1950 ml Balance 140 ml Intake Oral 240 ml IV Total 1850 ml Output Urine Total 1300 ml Stool Total 600 ml Estimated Blood Loss 50 ml # Voids 1 PHYSICAL EXAM Physical Exam General appearance: Alert and Oriented Head: Normocephalic, without obvious abnormality Eyes: conjunctivae/corneas clear. PERRL, EOM's intact. Fundi benign Lungs: Regular respirations, non labored breathing Abdomen: soft, colostomy in place. Pelvic: Saravia in place draining clear yellow urine. Pt also has abd dressings in place with small amount of drainage; still clean overall. Ice pack over genitalia. Psych: More communicative today, states pain under control. Denies anxiety, depression. ASSESSMENT/PLAN Assessment/Plan Leave dressings in place for today; Ice pack over genitalia prn discomfort/pain/ swelling ok Nursing to maintain Saravia catheter; pt was in retention last night when he went to the OR (700 ml of urine) Wound care consult ordered Will follow. Problems: (1) Sepsis Nutrition Consultation Dietary Evaluation: Recommendations by RD: Increase Calorie Intake, Protein supplementation Comments: sending ensure clear supplements while on clear liquid diet rec adv to regular as tolerated/may benefit from renal diet-watching labs REC mvi and vit c, RN notified Expected Outcomes/Goals: to meet > 75% est nutr needs Malnutrition Findings: Food and Nutrition Intake (Mod: <75% est energy req 7days Weight Status: Appropriate Problem Qualifiers (1) Sepsis: Sepsis type: sepsis due to unspecified organism Qualified Codes: A41.9 - Sepsis, unspecified organism 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
[2018-09-23 09:12] LABS: BASO % 0 % (0-3); EOS % 0 % (0-3); HEMATOCRIT 32.6 % (39.0-53.0); HEMOGLOBIN 10.3 g/dL (13.0-17.5); LYMPH # 0.3 x10^3/uL (1.0-4.8); LYMPH % 2 % (24-48); MEAN CORPUSCULAR HEMOGLOBIN 26 pg (25-35); MEAN CORPUSCULAR HGB CONC 32 g/dL (31-37); MEAN CORPUSCULAR VOLUME 84 fL (79-100); MONO # 0.4 x10^3/uL (0.0-1.1); MONO % 3 % (0-9); NEUT # 13.5 x10^3uL (1.8-7.7); NEUT % 95 % (31-73); PLATELET COUNT 212 x10^3/uL (140-400); RED BLOOD COUNT 3.88 x10^6/uL (4.30-5.70); RED CELL DISTRIBUTION WIDTH 19.1 % (11.5-14.5); WHITE BLOOD COUNT 14.2 x10^3/uL (4.0-11.0)
--- NOTE | 2018-09-23 09:14 | PDOC ---
Infectious Disease Note Subjective: Subjective Pt says postop pain is under control feels much better today no f/c/nv abdo wounds cont to drain ROS: ROS Negative except for above. d/w RN Vital Signs: Vital Signs Vital Signs Date Time Temp Pulse Resp B/P (MAP) Pulse Ox O2 Delivery O2 Flow Rate FiO2 09/23/18 07:00 98.6 62 17 109/55 (73) 100 Room Air 98.6 09/23/18 05:40 2.0 Physical Exam: PHYSICAL EXAM GENERAL: Alertxox3 male, lying in bed comfortably, cooperative, in no acute distress. HEENT: Normocephalic, atraumatic. Anicteric. Oral mucosa moist. No thrush. NECK: Supple. LUNGS: Clear bilaterally. HEART: S1, S2, tachycardia. No murmurs. ABDOMEN: Soft. Two midline wounds dressed, inguinal Lt and scrotal swelling dressing intact, dry induration and redness lt lateral abdomen present but improving receding EXTREMITIES: No edema. No cyanosis. PSYCHIATRIC: Appropriate mood and affect. Medications: Inpatient Meds: Current Medications Medications (Trade) Dose Ordered Sig/Joseph Start Time Stop Time Status Last Admin Dose Admin Acetaminophen (Tylenol) 650 mg PRN Q4HRS PRN 09/21/18 14:45 09/22/18 14:44 DC Acetaminophen/ Hydrocodone Bitart (Lortab 5/325) 1 tab PRN Q4HRS PRN 09/22/18 17:30 09/23/18 05:40 1 TAB Al Hydroxide/Mg Hydroxide (Mylanta Plus Xs) 30 ml PRN Q3HRS PRN 09/22/18 17:30 Ascorbic Acid (Vitamin C) 500 mg DAILY 09/22/18 12:00 09/23/18 08:18 500 MG Bupivacaine HCl (Sensorcaine Mpf 0.5%) 30 ml STK-MED ONCE 09/22/18 14:35 09/22/18 15:35 DC Bupivacaine HCl/ Epinephrine Bitart (Sensorcain-Mpf Epi 0.5%-1:409810) 30 ml STK-MED ONCE 09/22/18 14:34 09/22/18 15:35 DC Daptomycin 480 mg/ Sodium Chloride 50 ml @ 100 mls/hr Q48H 09/22/18 14:00 09/22/18 15:48 100 MLS/HR Dexamethasone Sodium Phosphate (Decadron) 20 mg STK-MED ONCE 09/22/18 16:00 09/22/18 16:01 DC Docusate Sodium (Colace) 100 mg BID 09/22/18 21:00 09/23/18 08:18 100 MG Fentanyl Citrate (Fentanyl 2ml Vial) 100 mcg STK-MED ONCE 09/22/18 16:30 09/22/18 16:31 DC Heparin Sodium (Porcine) (Heparin Sodium) 5,000 unit Q8HRS 09/22/18 22:00 09/23/18 05:39 5,000 UNIT Info (Anti-Coagulation Monitoring By Pharmacy) 1 each PRN DAILY PRN 09/22/18 11:30 Info (CONTRAST GIVEN -- Rx MONITORING) 1 each PRN DAILY PRN 09/22/18 07:15 09/24/18 07:14 Iohexol (Omnipaque 240 Mg/ml) 50 ml 1X ONCE 09/22/18 07:15 09/22/18 07:16 DC 09/22/18 07:15 50 ML Lidocaine HCl (Lidocaine Pf 2% Vial) 5 ml STK-MED ONCE 09/22/18 15:56 09/22/18 15:57 DC Linezolid/Dextrose 300 ml @ 300 mls/hr Q12HR 09/22/18 13:00 09/23/18 08:22 300 MLS/HR Lisinopril (Prinivil) 10 mg DAILY 09/22/18 09:00 09/22/18 13:06 DC 09/22/18 11:24 10 MG Meropenem 500 mg/ Sodium Chloride 50 ml @ 100 mls/hr Q8HRS 09/22/18 14:00 09/23/18 05:34 100 MLS/HR Micafungin Sodium 100 mg/Dextrose 100 ml @ 100 mls/hr Q24H 09/22/18 13:00 09/22/18 13:03 100 MLS/HR Multivitamins (Thera M Plus) 1 tab DAILY 09/22/18 12:00 09/23/18 08:17 1 TAB Naloxone HCl (Narcan) 0.1 mg PRN Q2MIN PRN 09/22/18 17:30 Ondansetron HCl (Zofran) 4 mg PRN Q6HRS PRN 09/22/18 17:30 Phenylephrine HCl (PHENYLEPHRINE in 0.9% NACL PF) 1 mg STK-MED ONCE 09/22/18 16:17 09/22/18 16:18 DC Piperacillin Sod/ Tazobactam Sod (Zosyn Per Pharmacy) 1 each PRN DAILY PRN 09/21/18 18:00 09/22/18 17:34 DC Piperacillin Sod/ Tazobactam Sod 3.375 gm/Sodium Chloride 50 ml @ 100 mls/hr Q6HRS 09/22/18 00:00 09/22/18 12:40 DC 09/22/18 05:48 100 MLS/HR Prochlorperazine Edisylate (Compazine) 5 mg PRN Q6HRS PRN 09/22/18 17:30 Propofol 20 ml @ As Directed STK-MED ONCE 09/22/18 15:56 09/22/18 15:57 DC Rivaroxaban (Xarelto) 15 mg DAILYWSUP 09/22/18 17:00 Sevoflurane (Ultane) 30 ml STK-MED ONCE 09/22/18 16:53 09/22/18 16:54 DC Sodium Chloride 1,000 ml @ 100 mls/hr Q10H 09/22/18 18:00 09/23/18 02:26 100 MLS/HR Sodium Chloride (Normal Saline Flush) 3 ml QSHIFT PRN 09/22/18 17:30 Vancomycin HCl (Vanco Per Pharmacy) 1 each PRN DAILY PRN 09/21/18 14:45 09/22/18 12:37 DC 09/21/18 18:36 1 EACH Vancomycin HCl (Vancomycin Trough Level) 1 each 1X ONCE 09/23/18 14:30 09/23/18 14:30 DC Vancomycin HCl 1.25 gm/Sodium Chloride 250 ml @ 166.667 mls/hr Q24H 09/22/18 15:00 09/22/18 15:00 DC Labs: Micro RUN DATE: 09/22/18 PAGE 1 RUN TIME: 2107 [facility] [address] [place] [address] Jose Haynes M.D., Slip Tender PATIENT: KELLY DONOVAN ACCT: [id number] LOC: [address] [place] [address] U : [id number] AGE/SX: 63/M ROOM: 6 REG : 09/21/[address]: DWAYNE TIDWELL MD : 1955 BED: 1 DIS : STATUS: ADM IN TLOC: SPEC #: [id number] MAGEN: 09/21/18 STATUS: RES REQ #: [id number] RECD: 09/21/[address]: DWAYNE TIDWELL MD SOURCE: ABDOMEN ENTR: 09/21/[address] [facility] [address]: MARCELO HENNESSY MD SPDESC: WOUND AMY GILLETTE MD, VENU S MD NO PCP ORDERED: LUZ MARINA/JAKI/MARIO Procedure Result ANAEROBIC-AEROBIC CULTURE PENDING ANAEROBIC RES 1 PENDING AEROBIC CULT PENDING AEROBIC RES 1 PENDING GRAM STAIN Final Final report GRAM STAIN RES 1 Final Comment No white blood cells seen. GRAM STAIN RES 2 Final Comment Moderate gram negative rods. GRAM STAIN RES 3 Final Comment Few gram positive cocci Performed at: - [facility], [place], [place] [id number] Ship Mate: ALEXANDRA Carrillo MD, Phone: [phone] RUN DATE: 09/22/18 PAGE 1 RUN TIME: 2107 [facility] [address] [place] [address] Jose Haynes M.D., Slip Tender PATIENT: KELLY DONOVAN ACCT: [id number] LOC: [address] [place] [address] U : [id number] AGE/SX: 63/M ROOM: [facility] REG : 09/21/[address]: DWAYNE TIDWELL MD : 1955 BED: 1 DIS : STATUS: ADM IN TLOC: SPEC #: [id number] MAGEN: 09/21/18 STATUS: RES REQ #: [id number] RECD: 09/21/[address] [facility] DR: DWAYNE TIDWELL MD SOURCE: PENIS ENTR: 09/21/[address] [facility] [address]: MARCELO HENNESSY MD [facility]: WOUND AMY GILLETTE MD, VENU S MD NO PCP ORDERED: ANAER/AEROB/GS Procedure Result ANAEROBIC-AEROBIC CULTURE PENDING ANAEROBIC RES 1 PENDING AEROBIC CULT PENDING AEROBIC RES 1 PENDING GRAM STAIN Final Final report GRAM STAIN RES 1 Final Comment No white blood cells seen. GRAM STAIN RES 2 Final Comment Many gram negative rods. GRAM STAIN RES 3 Final Comment Many gram positive cocci. GRAM STAIN RES 4 Final Comment CONTINUED ON NEXT PAGE RUN DATE: 09/22/18 PAGE 2 RUN TIME: 2107 [facility] [address] [place] [address] Jose Haynes M.D., Slip Tender SPEC: [id number] PATIENT: KELLY DONOVAN [id number] ( Continued) Procedure Result GRAM STAIN RES 4 Final (continued) Few gram positive rods. Performed at: DA - [facility] [address] [facility] [address], [place], [place] [id number] Ship Mate: ALEXANDRA Carrillo MD, Phone: [phone] Objective: Assessment: Sepsis source likely Lt inguinal,Scrotal cellulitis/abscess Leucocytosis source gi and gu Abdominal hernia with infected mesh with purulence, needs removal Colon ca on chemo Immunosuppression Plan: Plan of Care Daptomycin/micafunginmerrem zyvox for toxin binding f/u labs /cults local wound care Gen surgery following, d/w ARMINDA LEIVA MD Sep 23, 2018 09:14
[2018-09-23 09:40] LABS: CALCIUM 8.7 mg/dL (8.5-10.1); CREATININE 1.7 mg/dL (0.7-1.3); GFR 40.7; POTASSIUM 3.6 mmol/L (3.5-5.1)
[2018-09-23 11:00] VITALS: BP 106/61
--- NOTE | 2018-09-23 11:12 | PDOC ---
SURGICAL PROGRESS NOTE Subjective feels better today some nausea earlier 08/01 "[facility]" Vital Signs Vital Signs Date Time Temp Pulse Resp B/P (MAP) Pulse Ox O2 Delivery O2 Flow Rate FiO2 09/23/18 07:00 98.6 62 17 109/55 (73) 100 Room Air 98.6 09/23/18 05:40 2.0 I&O Intake and Output 09/23/18 06:59 Intake Total 2090 ml Output Total 1950 ml Balance 140 ml Intake Oral 240 ml IV Total 1850 ml Output Urine Total 1300 ml Stool Total 600 ml Estimated Blood Loss 50 ml # Voids 1 PATIENT HAS A MORENO: No General: Alert, Oriented X3 Abdomen: Soft, Other (LAMONT out, minimal drainage around Mati) Extremities: Other (PICC line in) Labs Laboratory Tests Test 09/21/18 13:50 09/21/18 21:00 09/22/18 03:40 09/22/18 03:45 White Blood Count 23.2 x10^3/uL (4.0-11.0) 11.6 x10^3/uL (4.0-11.0) Red Blood Count 5.04 x10^6/uL (4.30-5.70) 4.14 x10^6/uL (4.30-5.70) Hemoglobin 13.7 g/dL (13.0-17.5) 11.3 g/dL (13.0-17.5) Hematocrit 42.9 % (39.0-53.0) 34.6 % (39.0-53.0) Mean Corpuscular Volume 85 fL (79-100) 84 fL (79-100) Mean Corpuscular Hemoglobin 27 pg (25-35) 27 pg (25-35) Mean Corpuscular Hemoglobin Concent 32 g/dL (31-37) 33 g/dL (31-37) Red Cell Distribution Width 18.8 % (11.5-14.5) 18.2 % (11.5-14.5) Platelet Count 349 x10^3/uL (140-400) 188 x10^3/uL (140-400) Neutrophils (%) (Auto) 95 % (31-73) 93 % (31-73) Lymphocytes (%) (Auto) 2 % (24-48) 3 % (24-48) Monocytes (%) (Auto) 3 % (0-9) 4 % (0-9) Eosinophils (%) (Auto) 0 % (0-3) 0 % (0-3) Basophils (%) (Auto) 0 % (0-3) 0 % (0-3) Neutrophils # (Auto) 22.0 x10^3uL (1.8-7.7) 10.7 x10^3uL (1.8-7.7) Lymphocytes # (Auto) 0.4 x10^3/uL (1.0-4.8) 0.4 x10^3/uL (1.0-4.8) Monocytes # (Auto) 0.7 x10^3/uL (0.0-1.1) 0.5 x10^3/uL (0.0-1.1) Eosinophils # (Auto) 0.0 x10^3/uL (0.0-0.7) 0.0 x10^3/uL (0.0-0.7) Basophils # (Auto) 0.1 x10^3/uL (0.0-0.2) 0.0 x10^3/uL (0.0-0.2) Segmented Neutrophils % 72 % (35-66) Band Neutrophils % 12 % (0-9) Lymphocytes % 6 % (24-48) Monocytes % 7 % (0-10) Metamyelocytes % 3 % (0-0) Toxic Granulation Slight Toxic Vacuolation Slight Platelet Estimate Adequate (ADEQUATE) Platelet Clumps, EDTA Present Large Platelets Occ Anisocytosis Slight Sodium Level 134 mmol/L (136-145) 139 mmol/L (136-145) Potassium Level 4.8 mmol/L (3.5-5.1) 4.2 mmol/L (3.5-5.1) Chloride Level 92 mmol/L (98-107) 104 mmol/L (98-107) Carbon Dioxide Level 17 mmol/L (21-32) 20 mmol/L (21-32) Anion Gap 25 (6-14) 15 (6-14) Blood Urea Nitrogen 114 mg/dL (8-26) 95 mg/dL (8-26) Creatinine 3.7 mg/dL (0.7-1.3) 2.8 mg/dL (0.7-1.3) Estimated GFR (Cockcroft-Gault) 16.6 22.9 BUN/Creatinine Ratio 31 (6-20) 34 (6-20) Glucose Level 240 mg/dL (70-99) 156 mg/dL (70-99) Lactic Acid Level 7.8 mmol/L (0.4-2.0) 1.8 mmol/L (0.4-2.0) Calcium Level 9.9 mg/dL (8.5-10.1) 8.6 mg/dL (8.5-10.1) Total Bilirubin 0.7 mg/dL (0.2-1.0) 0.6 mg/dL (0.2-1.0) Aspartate Amino Transf (AST/SGOT) 44 U/L (15-37) 31 U/L (15-37) Alanine Aminotransferase (ALT/SGPT) 49 U/L (16-63) 32 U/L (16-63) Alkaline Phosphatase 184 U/L (46-116) 121 U/L (46-116) Troponin I Quantitative 0.024 ng/mL (0.000-0.055) Total Protein 7.6 g/dL (6.4-8.2) 6.4 g/dL (6.4-8.2) Albumin 2.4 g/dL (3.4-5.0) 1.6 g/dL (3.4-5.0) Albumin/Globulin Ratio 0.5 (1.0-1.7) 0.3 (1.0-1.7) Urine Collection Type Unknown Urine Color Yellow Urine Clarity Clear Urine pH 5.0 Urine Specific [place] 1.020 Urine Protein 30 mg/dL (NEG-TRACE) Urine Glucose (UA) 250 mg/dL (NEG) Urine Ketones (Stick) Negative mg/dL (NEG) Urine Blood Large (NEG) Urine Nitrite Negative (NEG) Urine Bilirubin Negative (NEG) Urine Urobilinogen Dipstick 0.2 mg/dL (0.2 mg/dL) Urine Leukocyte Esterase Large (NEG) Urine RBC 11-20 /HPF (0-2) Urine WBC Tntc /HPF (0-4) Urine Squamous Epithelial Cells Occ /LPF Urine Bacteria Few /HPF (0-FEW) Urine Granular Casts Moderate /HPF Test 09/23/18 08:05 White Blood Count 14.2 x10^3/uL (4.0-11.0) Red Blood Count 3.88 x10^6/uL (4.30-5.70) Hemoglobin 10.3 g/dL (13.0-17.5) Hematocrit 32.6 % (39.0-53.0) Mean Corpuscular Volume 84 fL (79-100) Mean Corpuscular Hemoglobin 26 pg (25-35) Mean Corpuscular Hemoglobin Concent 32 g/dL (31-37) Red Cell Distribution Width 19.1 % (11.5-14.5) Platelet Count 212 x10^3/uL (140-400) Neutrophils (%) (Auto) 95 % (31-73) Lymphocytes (%) (Auto) 2 % (24-48) Monocytes (%) (Auto) 3 % (0-9) Eosinophils (%) (Auto) 0 % (0-3) Basophils (%) (Auto) 0 % (0-3) Neutrophils # (Auto) 13.5 x10^3uL (1.8-7.7) Lymphocytes # (Auto) 0.3 x10^3/uL (1.0-4.8) Monocytes # (Auto) 0.4 x10^3/uL (0.0-1.1) Eosinophils # (Auto) 0.0 x10^3/uL (0.0-0.7) Basophils # (Auto) 0.0 x10^3/uL (0.0-0.2) Sodium Level 141 mmol/L (136-145) Potassium Level 3.6 mmol/L (3.5-5.1) Chloride Level 107 mmol/L (98-107) Carbon Dioxide Level 21 mmol/L (21-32) Anion Gap 13 (6-14) Blood Urea Nitrogen 60 mg/dL (8-26) Creatinine 1.7 mg/dL (0.7-1.3) Estimated GFR (Cockcroft-Gault) 40.7 Glucose Level 158 mg/dL (70-99) Calcium Level 8.7 mg/dL (8.5-10.1) Laboratory Tests Test 09/23/18 08:05 White Blood Count 14.2 x10^3/uL (4.0-11.0) Red Blood Count 3.88 x10^6/uL (4.30-5.70) Hemoglobin 10.3 g/dL (13.0-17.5) Hematocrit 32.6 % (39.0-53.0) Mean Corpuscular Volume 84 fL (79-100) Mean Corpuscular Hemoglobin 26 pg (25-35) Mean Corpuscular Hemoglobin Concent 32 g/dL (31-37) Red Cell Distribution Width 19.1 % (11.5-14.5) Platelet Count 212 x10^3/uL (140-400) Neutrophils (%) (Auto) 95 % (31-73) Lymphocytes (%) (Auto) 2 % (24-48) Monocytes (%) (Auto) 3 % (0-9) Eosinophils (%) (Auto) 0 % (0-3) Basophils (%) (Auto) 0 % (0-3) Neutrophils # (Auto) 13.5 x10^3uL (1.8-7.7) Lymphocytes # (Auto) 0.3 x10^3/uL (1.0-4.8) Monocytes # (Auto) 0.4 x10^3/uL (0.0-1.1) Eosinophils # (Auto) 0.0 x10^3/uL (0.0-0.7) Basophils # (Auto) 0.0 x10^3/uL (0.0-0.2) Sodium Level 141 mmol/L (136-145) Potassium Level 3.6 mmol/L (3.5-5.1) Chloride Level 107 mmol/L (98-107) Carbon Dioxide Level 21 mmol/L (21-32) Anion Gap 13 (6-14) Blood Urea Nitrogen 60 mg/dL (8-26) Creatinine 1.7 mg/dL (0.7-1.3) Estimated GFR (Cockcroft-Gault) 40.7 Glucose Level 158 mg/dL (70-99) Calcium Level 8.7 mg/dL (8.5-10.1) Problem List Problems Medical Problems: (1) Sepsis Status: Acute Assessment/Plan POD sigmoid resection CKD stage IV nausea offered some clear liquids, he declined will start TPN working on placement TRACE SAMUEL MD Sep 23, 2018 11:12
--- NOTE | 2018-09-23 11:52 | PDOC ---
SURGICAL PROGRESS NOTE Subjective better pain control today "it's tough, but I'm tough" Vital Signs Vital Signs Date Time Temp Pulse Resp B/P (MAP) Pulse Ox O2 Delivery O2 Flow Rate FiO2 09/23/18 11:00 98.3 71 16 106/61 (76) 98 Room Air 98.3 09/23/18 05:40 2.0 I&O Intake and Output 09/23/18 07:00 Intake Total 2090 ml Output Total 1950 ml Balance 140 ml Intake Oral 240 ml IV Total 1850 ml Output Urine Total 1300 ml Stool Total 600 ml Estimated Blood Loss 50 ml # Voids 1 PATIENT HAS A MORENO: Yes Abdomen: Other (two small midline defects with some surrounding erythema, minmal drainage) Labs Laboratory Tests Test 09/21/18 13:50 09/21/18 21:00 09/22/18 03:40 09/22/18 03:45 White Blood Count 23.2 x10^3/uL (4.0-11.0) 11.6 x10^3/uL (4.0-11.0) Red Blood Count 5.04 x10^6/uL (4.30-5.70) 4.14 x10^6/uL (4.30-5.70) Hemoglobin 13.7 g/dL (13.0-17.5) 11.3 g/dL (13.0-17.5) Hematocrit 42.9 % (39.0-53.0) 34.6 % (39.0-53.0) Mean Corpuscular Volume 85 fL (79-100) 84 fL (79-100) Mean Corpuscular Hemoglobin 27 pg (25-35) 27 pg (25-35) Mean Corpuscular Hemoglobin Concent 32 g/dL (31-37) 33 g/dL (31-37) Red Cell Distribution Width 18.8 % (11.5-14.5) 18.2 % (11.5-14.5) Platelet Count 349 x10^3/uL (140-400) 188 x10^3/uL (140-400) Neutrophils (%) (Auto) 95 % (31-73) 93 % (31-73) Lymphocytes (%) (Auto) 2 % (24-48) 3 % (24-48) Monocytes (%) (Auto) 3 % (0-9) 4 % (0-9) Eosinophils (%) (Auto) 0 % (0-3) 0 % (0-3) Basophils (%) (Auto) 0 % (0-3) 0 % (0-3) Neutrophils # (Auto) 22.0 x10^3uL (1.8-7.7) 10.7 x10^3uL (1.8-7.7) Lymphocytes # (Auto) 0.4 x10^3/uL (1.0-4.8) 0.4 x10^3/uL (1.0-4.8) Monocytes # (Auto) 0.7 x10^3/uL (0.0-1.1) 0.5 x10^3/uL (0.0-1.1) Eosinophils # (Auto) 0.0 x10^3/uL (0.0-0.7) 0.0 x10^3/uL (0.0-0.7) Basophils # (Auto) 0.1 x10^3/uL (0.0-0.2) 0.0 x10^3/uL (0.0-0.2) Segmented Neutrophils % 72 % (35-66) Band Neutrophils % 12 % (0-9) Lymphocytes % 6 % (24-48) Monocytes % 7 % (0-10) Metamyelocytes % 3 % (0-0) Toxic Granulation Slight Toxic Vacuolation Slight Platelet Estimate Adequate (ADEQUATE) Platelet Clumps, EDTA Present Large Platelets Occ Anisocytosis Slight Sodium Level 134 mmol/L (136-145) 139 mmol/L (136-145) Potassium Level 4.8 mmol/L (3.5-5.1) 4.2 mmol/L (3.5-5.1) Chloride Level 92 mmol/L (98-107) 104 mmol/L (98-107) Carbon Dioxide Level 17 mmol/L (21-32) 20 mmol/L (21-32) Anion Gap 25 (6-14) 15 (6-14) Blood Urea Nitrogen 114 mg/dL (8-26) 95 mg/dL (8-26) Creatinine 3.7 mg/dL (0.7-1.3) 2.8 mg/dL (0.7-1.3) Estimated GFR (Cockcroft-Gault) 16.6 22.9 BUN/Creatinine Ratio 31 (6-20) 34 (6-20) Glucose Level 240 mg/dL (70-99) 156 mg/dL (70-99) Lactic Acid Level 7.8 mmol/L (0.4-2.0) 1.8 mmol/L (0.4-2.0) Calcium Level 9.9 mg/dL (8.5-10.1) 8.6 mg/dL (8.5-10.1) Total Bilirubin 0.7 mg/dL (0.2-1.0) 0.6 mg/dL (0.2-1.0) Aspartate Amino Transf (AST/SGOT) 44 U/L (15-37) 31 U/L (15-37) Alanine Aminotransferase (ALT/SGPT) 49 U/L (16-63) 32 U/L (16-63) Alkaline Phosphatase 184 U/L (46-116) 121 U/L (46-116) Troponin I Quantitative 0.024 ng/mL (0.000-0.055) Total Protein 7.6 g/dL (6.4-8.2) 6.4 g/dL (6.4-8.2) Albumin 2.4 g/dL (3.4-5.0) 1.6 g/dL (3.4-5.0) Albumin/Globulin Ratio 0.5 (1.0-1.7) 0.3 (1.0-1.7) Urine Collection Type Unknown Urine Color Yellow Urine Clarity Clear Urine pH 5.0 Urine Specific [place] 1.020 Urine Protein 30 mg/dL (NEG-TRACE) Urine Glucose (UA) 250 mg/dL (NEG) Urine Ketones (Stick) Negative mg/dL (NEG) Urine Blood Large (NEG) Urine Nitrite Negative (NEG) Urine Bilirubin Negative (NEG) Urine Urobilinogen Dipstick 0.2 mg/dL (0.2 mg/dL) Urine Leukocyte Esterase Large (NEG) Urine RBC 11-20 /HPF (0-2) Urine WBC Tntc /HPF (0-4) Urine Squamous Epithelial Cells Occ /LPF Urine Bacteria Few /HPF (0-FEW) Urine Granular Casts Moderate /HPF Test 09/23/18 08:05 White Blood Count 14.2 x10^3/uL (4.0-11.0) Red Blood Count 3.88 x10^6/uL (4.30-5.70) Hemoglobin 10.3 g/dL (13.0-17.5) Hematocrit 32.6 % (39.0-53.0) Mean Corpuscular Volume 84 fL (79-100) Mean Corpuscular Hemoglobin 26 pg (25-35) Mean Corpuscular Hemoglobin Concent 32 g/dL (31-37) Red Cell Distribution Width 19.1 % (11.5-14.5) Platelet Count 212 x10^3/uL (140-400) Neutrophils (%) (Auto) 95 % (31-73) Lymphocytes (%) (Auto) 2 % (24-48) Monocytes (%) (Auto) 3 % (0-9) Eosinophils (%) (Auto) 0 % (0-3) Basophils (%) (Auto) 0 % (0-3) Neutrophils # (Auto) 13.5 x10^3uL (1.8-7.7) Lymphocytes # (Auto) 0.3 x10^3/uL (1.0-4.8) Monocytes # (Auto) 0.4 x10^3/uL (0.0-1.1) Eosinophils # (Auto) 0.0 x10^3/uL (0.0-0.7) Basophils # (Auto) 0.0 x10^3/uL (0.0-0.2) Sodium Level 141 mmol/L (136-145) Potassium Level 3.6 mmol/L (3.5-5.1) Chloride Level 107 mmol/L (98-107) Carbon Dioxide Level 21 mmol/L (21-32) Anion Gap 13 (6-14) Blood Urea Nitrogen 60 mg/dL (8-26) Creatinine 1.7 mg/dL (0.7-1.3) Estimated GFR (Cockcroft-Gault) 40.7 Glucose Level 158 mg/dL (70-99) Calcium Level 8.7 mg/dL (8.5-10.1) Laboratory Tests Test 09/23/18 08:05 White Blood Count 14.2 x10^3/uL (4.0-11.0) Red Blood Count 3.88 x10^6/uL (4.30-5.70) Hemoglobin 10.3 g/dL (13.0-17.5) Hematocrit 32.6 % (39.0-53.0) Mean Corpuscular Volume 84 fL (79-100) Mean Corpuscular Hemoglobin 26 pg (25-35) Mean Corpuscular Hemoglobin Concent 32 g/dL (31-37) Red Cell Distribution Width 19.1 % (11.5-14.5) Platelet Count 212 x10^3/uL (140-400) Neutrophils (%) (Auto) 95 % (31-73) Lymphocytes (%) (Auto) 2 % (24-48) Monocytes (%) (Auto) 3 % (0-9) Eosinophils (%) (Auto) 0 % (0-3) Basophils (%) (Auto) 0 % (0-3) Neutrophils # (Auto) 13.5 x10^3uL (1.8-7.7) Lymphocytes # (Auto) 0.3 x10^3/uL (1.0-4.8) Monocytes # (Auto) 0.4 x10^3/uL (0.0-1.1) Eosinophils # (Auto) 0.0 x10^3/uL (0.0-0.7) Basophils # (Auto) 0.0 x10^3/uL (0.0-0.2) Sodium Level 141 mmol/L (136-145) Potassium Level 3.6 mmol/L (3.5-5.1) Chloride Level 107 mmol/L (98-107) Carbon Dioxide Level 21 mmol/L (21-32) Anion Gap 13 (6-14) Blood Urea Nitrogen 60 mg/dL (8-26) Creatinine 1.7 mg/dL (0.7-1.3) Estimated GFR (Cockcroft-Gault) 40.7 Glucose Level 158 mg/dL (70-99) Calcium Level 8.7 mg/dL (8.5-10.1) Problem List Problems Medical Problems: (1) Sepsis Status: Acute Assessment/Plan s/p scrotal debridement, open abdominal wounds continue wound care no acute gen surg recs TRACE SAMUEL MD Sep 23, 2018 11:52
--- NOTE | 2018-09-23 12:46 | PDOC ---
PROGRESS NOTES Chief Complaint Chief Complaint Sepsis with elevated lactate 7, now normal Necrotizing fasciitis Scrotal edema status post IND OR 09/22/18 by urology Closed anion gap Renal failure, acute - improving Hyponatremia 134-very dry, IMPROVING SIGNIF Tachycardia 120s to 1300 sinus, RESLVED Leukocytosis improving BILateral scrotal swelling improving History recent UTI-a week ago Colon CA on chemotherapy KU status post colon Resection with indwelling colostomy Ventral hernia mesh wound, infected INdwelling colostomy bag right History of Present Illness History of Present Illness Looks and feels way better than on admission Now he is not super dry, IV fluids running, good urine output Creatinine continues to improve 2.8 now from 3.7 HAd I and D by urology 09/22 because of significant scrotal swelling edema with necrotizing fasciitis on CAT scan ID also on board Patient came from home and usually can ambulate So far no ambulation here Plan: add PTOT Continue IV antibiotics and local wound care Continue IV fluids currently running at 100 mL an hour Avoid nephrotoxins Follow blood cultures Vitals Vitals Vital Signs Date Time Temp Pulse Resp B/P (MAP) Pulse Ox O2 Delivery O2 Flow Rate FiO2 09/23/18 11:00 98.3 71 16 106/61 (76) 98 Room Air 98.3 09/23/18 05:40 2.0 Physical Exam Physical Exam GENERAL: Alertxox3 male, lying in bed comfortably, cooperative, in no acute distress. HEENT: Normocephalic, atraumatic. Anicteric. Oral mucosa moist. No thrush. NECK: Supple. LUNGS: Clear bilaterally. HEART: S1, S2, tachycardia. No murmurs. ABDOMEN: Soft. Two midline wounds dressed, inguinal Lt and scrotal swelling dressing intact, dry induration and redness lt lateral abdomen present but improving receding EXTREMITIES: No edema. No cyanosis. PSYCHIATRIC: Appropriate mood and affect. General: Alert, Oriented X3 Heart: Regular rate, Normal S1, Normal S2, Other (TACHYCARDIA) Lungs: Clear Abdomen: Other (two small midline defects with some surrounding erythema, 2 LAMONT drains scrotal bilateral) Extremities: Other (PICC line in; duration left scrotum with indwelling drain, left to heal by secondary intention) Skin: No breakdown Labs LABS Laboratory Tests Test 09/23/18 08:05 White Blood Count 14.2 x10^3/uL (4.0-11.0) Red Blood Count 3.88 x10^6/uL (4.30-5.70) Hemoglobin 10.3 g/dL (13.0-17.5) Hematocrit 32.6 % (39.0-53.0) Mean Corpuscular Volume 84 fL (79-100) Mean Corpuscular Hemoglobin 26 pg (25-35) Mean Corpuscular Hemoglobin Concent 32 g/dL (31-37) Red Cell Distribution Width 19.1 % (11.5-14.5) Platelet Count 212 x10^3/uL (140-400) Neutrophils (%) (Auto) 95 % (31-73) Lymphocytes (%) (Auto) 2 % (24-48) Monocytes (%) (Auto) 3 % (0-9) Eosinophils (%) (Auto) 0 % (0-3) Basophils (%) (Auto) 0 % (0-3) Neutrophils # (Auto) 13.5 x10^3uL (1.8-7.7) Lymphocytes # (Auto) 0.3 x10^3/uL (1.0-4.8) Monocytes # (Auto) 0.4 x10^3/uL (0.0-1.1) Eosinophils # (Auto) 0.0 x10^3/uL (0.0-0.7) Basophils # (Auto) 0.0 x10^3/uL (0.0-0.2) Sodium Level 141 mmol/L (136-145) Potassium Level 3.6 mmol/L (3.5-5.1) Chloride Level 107 mmol/L (98-107) Carbon Dioxide Level 21 mmol/L (21-32) Anion Gap 13 (6-14) Blood Urea Nitrogen 60 mg/dL (8-26) Creatinine 1.7 mg/dL (0.7-1.3) Estimated GFR (Cockcroft-Gault) 40.7 Glucose Level 158 mg/dL (70-99) Calcium Level 8.7 mg/dL (8.5-10.1) Review of Systems Review of Systems A 14 point ROS was completed with the following noted as positive: Other systems reviewed and negative. \CONSTITUTIONAL: No fever or chills EYES: No recent changes SKIN: No rash or itching CARDIOVASCULAR: No chest pain, syncope, palpitations, or edema RESPIRATORY: No SOB or cough GASTROINTESTINAL: No nausea, vomiting or abdominal pain NEUROLOGICAL: No headaches or weakness ENDOCRINE: No cold or heat intolerance GENITOURINARY: No urgency or frequency of urination MUSCULOSKELETAL: No back pain or joint pain LYMPHATICS: No enlarged lymph nodes PSYCHIATRIC: No anxiety or depression Assessment and Plan Assessmemt and Plan Problems Medical Problems: (1) Sepsis Status: Acute Comment Review of Relevant I have reviewed the following items renetta (where applicable) has been applied. Labs Laboratory Tests Test 09/21/18 13:50 09/21/18 21:00 09/22/18 03:40 09/22/18 03:45 White Blood Count 23.2 x10^3/uL (4.0-11.0) 11.6 x10^3/uL (4.0-11.0) Red Blood Count 5.04 x10^6/uL (4.30-5.70) 4.14 x10^6/uL (4.30-5.70) Hemoglobin 13.7 g/dL (13.0-17.5) 11.3 g/dL (13.0-17.5) Hematocrit 42.9 % (39.0-53.0) 34.6 % (39.0-53.0) Mean Corpuscular Volume 85 fL (79-100) 84 fL (79-100) Mean Corpuscular Hemoglobin 27 pg (25-35) 27 pg (25-35) Mean Corpuscular Hemoglobin Concent 32 g/dL (31-37) 33 g/dL (31-37) Red Cell Distribution Width 18.8 % (11.5-14.5) 18.2 % (11.5-14.5) Platelet Count 349 x10^3/uL (140-400) 188 x10^3/uL (140-400) Neutrophils (%) (Auto) 95 % (31-73) 93 % (31-73) Lymphocytes (%) (Auto) 2 % (24-48) 3 % (24-48) Monocytes (%) (Auto) 3 % (0-9) 4 % (0-9) Eosinophils (%) (Auto) 0 % (0-3) 0 % (0-3) Basophils (%) (Auto) 0 % (0-3) 0 % (0-3) Neutrophils # (Auto) 22.0 x10^3uL (1.8-7.7) 10.7 x10^3uL (1.8-7.7) Lymphocytes # (Auto) 0.4 x10^3/uL (1.0-4.8) 0.4 x10^3/uL (1.0-4.8) Monocytes # (Auto) 0.7 x10^3/uL (0.0-1.1) 0.5 x10^3/uL (0.0-1.1) Eosinophils # (Auto) 0.0 x10^3/uL (0.0-0.7) 0.0 x10^3/uL (0.0-0.7) Basophils # (Auto) 0.1 x10^3/uL (0.0-0.2) 0.0 x10^3/uL (0.0-0.2) Segmented Neutrophils % 72 % (35-66) Band Neutrophils % 12 % (0-9) Lymphocytes % 6 % (24-48) Monocytes % 7 % (0-10) Metamyelocytes % 3 % (0-0) Toxic Granulation Slight Toxic Vacuolation Slight Platelet Estimate Adequate (ADEQUATE) Platelet Clumps, EDTA Present Large Platelets Occ Anisocytosis Slight Sodium Level 134 mmol/L (136-145) 139 mmol/L (136-145) Potassium Level 4.8 mmol/L (3.5-5.1) 4.2 mmol/L (3.5-5.1) Chloride Level 92 mmol/L (98-107) 104 mmol/L (98-107) Carbon Dioxide Level 17 mmol/L (21-32) 20 mmol/L (21-32) Anion Gap 25 (6-14) 15 (6-14) Blood Urea Nitrogen 114 mg/dL (8-26) 95 mg/dL (8-26) Creatinine 3.7 mg/dL (0.7-1.3) 2.8 mg/dL (0.7-1.3) Estimated GFR (Cockcroft-Gault) 16.6 22.9 BUN/Creatinine Ratio 31 (6-20) 34 (6-20) Glucose Level 240 mg/dL (70-99) 156 mg/dL (70-99) Lactic Acid Level 7.8 mmol/L (0.4-2.0) 1.8 mmol/L (0.4-2.0) Calcium Level 9.9 mg/dL (8.5-10.1) 8.6 mg/dL (8.5-10.1) Total Bilirubin 0.7 mg/dL (0.2-1.0) 0.6 mg/dL (0.2-1.0) Aspartate Amino Transf (AST/SGOT) 44 U/L (15-37) 31 U/L (15-37) Alanine Aminotransferase (ALT/SGPT) 49 U/L (16-63) 32 U/L (16-63) Alkaline Phosphatase 184 U/L (46-116) 121 U/L (46-116) Troponin I Quantitative 0.024 ng/mL (0.000-0.055) Total Protein 7.6 g/dL (6.4-8.2) 6.4 g/dL (6.4-8.2) Albumin 2.4 g/dL (3.4-5.0) 1.6 g/dL (3.4-5.0) Albumin/Globulin Ratio 0.5 (1.0-1.7) 0.3 (1.0-1.7) Urine Collection Type Unknown Urine Color Yellow Urine Clarity Clear Urine pH 5.0 Urine Specific Valentine 1.020 Urine Protein 30 mg/dL (NEG-TRACE) Urine Glucose (UA) 250 mg/dL (NEG) Urine Ketones (Stick) Negative mg/dL (NEG) Urine Blood Large (NEG) Urine Nitrite Negative (NEG) Urine Bilirubin Negative (NEG) Urine Urobilinogen Dipstick 0.2 mg/dL (0.2 mg/dL) Urine Leukocyte Esterase Large (NEG) Urine RBC 11-20 /HPF (0-2) Urine WBC Tntc /HPF (0-4) Urine Squamous Epithelial Cells Occ /LPF Urine Bacteria Few /HPF (0-FEW) Urine Granular Casts Moderate /HPF Test 09/23/18 08:05 White Blood Count 14.2 x10^3/uL (4.0-11.0) Red Blood Count 3.88 x10^6/uL (4.30-5.70) Hemoglobin 10.3 g/dL (13.0-17.5) Hematocrit 32.6 % (39.0-53.0) Mean Corpuscular Volume 84 fL (79-100) Mean Corpuscular Hemoglobin 26 pg (25-35) Mean Corpuscular Hemoglobin Concent 32 g/dL (31-37) Red Cell Distribution Width 19.1 % (11.5-14.5) Platelet Count 212 x10^3/uL (140-400) Neutrophils (%) (Auto) 95 % (31-73) Lymphocytes (%) (Auto) 2 % (24-48) Monocytes (%) (Auto) 3 % (0-9) Eosinophils (%) (Auto) 0 % (0-3) Basophils (%) (Auto) 0 % (0-3) Neutrophils # (Auto) 13.5 x10^3uL (1.8-7.7) Lymphocytes # (Auto) 0.3 x10^3/uL (1.0-4.8) Monocytes # (Auto) 0.4 x10^3/uL (0.0-1.1) Eosinophils # (Auto) 0.0 x10^3/uL (0.0-0.7) Basophils # (Auto) 0.0 x10^3/uL (0.0-0.2) Sodium Level 141 mmol/L (136-145) Potassium Level 3.6 mmol/L (3.5-5.1) Chloride Level 107 mmol/L (98-107) Carbon Dioxide Level 21 mmol/L (21-32) Anion Gap 13 (6-14) Blood Urea Nitrogen 60 mg/dL (8-26) Creatinine 1.7 mg/dL (0.7-1.3) Estimated GFR (Cockcroft-Gault) 40.7 Glucose Level 158 mg/dL (70-99) Calcium Level 8.7 mg/dL (8.5-10.1) Laboratory Tests Test 09/23/18 08:05 White Blood Count 14.2 x10^3/uL (4.0-11.0) Red Blood Count 3.88 x10^6/uL (4.30-5.70) Hemoglobin 10.3 g/dL (13.0-17.5) Hematocrit 32.6 % (39.0-53.0) Mean Corpuscular Volume 84 fL (79-100) Mean Corpuscular Hemoglobin 26 pg (25-35) Mean Corpuscular Hemoglobin Concent 32 g/dL (31-37) Red Cell Distribution Width 19.1 % (11.5-14.5) Platelet Count 212 x10^3/uL (140-400) Neutrophils (%) (Auto) 95 % (31-73) Lymphocytes (%) (Auto) 2 % (24-48) Monocytes (%) (Auto) 3 % (0-9) Eosinophils (%) (Auto) 0 % (0-3) Basophils (%) (Auto) 0 % (0-3) Neutrophils # (Auto) 13.5 x10^3uL (1.8-7.7) Lymphocytes # (Auto) 0.3 x10^3/uL (1.0-4.8) Monocytes # (Auto) 0.4 x10^3/uL (0.0-1.1) Eosinophils # (Auto) 0.0 x10^3/uL (0.0-0.7) Basophils # (Auto) 0.0 x10^3/uL (0.0-0.2) Sodium Level 141 mmol/L (136-145) Potassium Level 3.6 mmol/L (3.5-5.1) Chloride Level 107 mmol/L (98-107) Carbon Dioxide Level 21 mmol/L (21-32) Anion Gap 13 (6-14) Blood Urea Nitrogen 60 mg/dL (8-26) Creatinine 1.7 mg/dL (0.7-1.3) Estimated GFR (Cockcroft-Gault) 40.7 Glucose Level 158 mg/dL (70-99) Calcium Level 8.7 mg/dL (8.5-10.1) Microbiology 09/21/18 Blood Culture - Preliminary, Resulted NO GROWTH AFTER 1 DAY 09/21/18 Anaerobic/Aerobic Culture, Resulted Pending 09/21/18 Anaerobic Culture Result 1 (PRIMITIVO), Resulted Pending 09/21/18 Aerobic Culture, Resulted Pending 09/21/18 Aerobic Culture Result 1 (PRIMITIVO), Resulted Pending 09/21/18 Gram Stain - Final, Resulted 09/21/18 Gram Stain Result 1 (PRIMITIVO) - Final, Resulted 09/21/18 Gram Stain Result 2 (PRIMITIVO) - Final, Resulted 09/21/18 Gram Stain Result 3 (PRIMITIVO) - Final, Resulted 09/21/18 Gram Stain Result 4 (PRIMITIVO) - Final, Resulted 09/21/18 Anaerobic/Aerobic Culture, Resulted Pending 09/21/18 Anaerobic Culture Result 1 (PRIMITIVO), Resulted Pending 09/21/18 Aerobic Culture, Resulted Pending 09/21/18 Aerobic Culture Result 1 (PRIMITIVO), Resulted Pending 09/21/18 Gram Stain - Final, Resulted 09/21/18 Gram Stain Result 1 (PRIMITIVO) - Final, Resulted 09/21/18 Gram Stain Result 2 (PRIMITIVO) - Final, Resulted 09/21/18 Gram Stain Result 3 (PRIMITIVO) - Final, Resulted Medications Current Medications Sodium Chloride 1,000 ml @ 1,000 mls/hr 1X ONCE IV Last administered on at 13:56; Start 09/21/18 at 14:00; Stop 09/21/18 at 14:59; Status DC Piperacillin Sod/ Tazobactam Sod 3.375 gm/Sodium Chloride 50 ml @ 100 mls/hr 1X ONCE IV Last administered on 09/21/18at 14:59; Start 09/21/18 at 14:30; Stop 09/21/18 at 14:59; Status DC Sodium Chloride 1,000 ml @ 1,000 mls/hr 1X ONCE IV Last administered on at 14:55; Start 09/21/18 at 14:30; Stop 09/21/18 at 15:29; Status DC Ondansetron HCl (Zofran) 4 mg PRN Q8HRS PRN IV NAUSEA/VOMITING; Start 09/21/18 at 14:45; Stop 09/21/18 at 16:31; Status DC Sodium Chloride 1,000 ml @ 150 mls/hr Q6H40M IV Last administered on at 11:24; Start 09/21/18 at 14:40; Stop 09/22/18 at 14:39; Status DC Acetaminophen (Tylenol) 650 mg PRN Q4HRS PRN PO FEVER; Start 09/21/18 at 14:45 ; Stop 09/22/18 at 14:44; Status DC Vancomycin HCl 250 ml @ 250 mls/hr 1X ONCE IV ; Start 09/21/18 at 14:45; Stop 09/21/18 at 15:44; Status UNV Vancomycin HCl (Vanco Per Pharmacy) 1 each PRN DAILY PRN MC SEE COMMENTS Last administered on 09/21/18at 18:36; Start 09/21/18 at 14:45; Stop 09/22/18 at 12:37 ; Status DC Vancomycin HCl 1.25 gm/Sodium Chloride 250 ml @ 166.667 mls/hr 1X ONCE IV Last administered on 09/21/18at 15:34; Start 09/21/18 at 15:00; Stop 09/21/18 at 16:29; Status DC Ondansetron HCl (Zofran) 4 mg PRN Q6HRS PRN IV NAUSEA/VOMITING; Start 09/21/18 at 16:45; Stop 09/22/18 at 17:35; Status DC Piperacillin Sod/ Tazobactam Sod (Zosyn Per Pharmacy) 1 each PRN DAILY PRN MC SEE COMMENTS; Start 09/21/18 at 18:00; Stop 09/22/18 at 17:34; Status DC Lisinopril (Prinivil) 10 mg DAILY PO Last administered on 09/22/18at 11:24; Start 09/22/18 at 09:00; Stop 09/22/18 at 13:06; Status DC Piperacillin Sod/ Tazobactam Sod 3.375 gm/Sodium Chloride 50 ml @ 100 mls/hr Q6HRS IV Last administered on 09/22/18at 05:48; Start 09/22/18 at 00:00; Stop at 12:40; Status DC Heparin Sodium (Porcine) (Heparin Sodium) 5,000 unit Q8HRS SQ Last administered on 09/22/18at 05:54; Start 09/21/18 at 18:00; Stop 09/22/18 at 11:15 ; Status DC Vancomycin HCl 1.25 gm/Sodium Chloride 250 ml @ 166.667 mls/hr Q24H IV ; Start 09/22/18 at 15:00; Stop 09/22/18 at 15:00; Status DC Vancomycin HCl (Vancomycin Trough Level) 1 each 1X ONCE MC ; Start 09/23/18 at 14:30; Stop 09/23/18 at 14:30; Status DC Iohexol (Omnipaque 240 Mg/ml) 50 ml 1X ONCE PO Last administered on 09/22/18at 07:15; Start 09/22/18 at 07:15; Stop 09/22/18 at 07:16; Status DC Info (CONTRAST GIVEN -- Rx MONITORING) 1 each PRN DAILY PRN MC SEE COMMENTS; Start 09/22/18 at 07:15; Stop 09/24/18 at 07:14 Ascorbic Acid (Vitamin C) 500 mg DAILY PO Last administered on 09/23/18at 08:18 ; Start 09/22/18 at 12:00 Multivitamins (Thera M Plus) 1 tab DAILY PO Last administered on 09/23/18at 08: 17; Start 09/22/18 at 12:00 Rivaroxaban (Xarelto) 15 mg DAILYWSUP PO ; Start 09/22/18 at 17:00 Info (Anti-Coagulation Monitoring By Pharmacy) 1 each PRN DAILY PRN MC SEE COMMENTS; Start 09/22/18 at 11:30 Micafungin Sodium 100 mg/Dextrose 100 ml @ 100 mls/hr Q24H IV Last administered on 09/22/18at 13:03; Start 09/22/18 at 13:00 Linezolid/Dextrose 300 ml @ 300 mls/hr Q12HR IV Last administered on at 08:22; Start 09/22/18 at 13:00 Daptomycin 480 mg/ Sodium Chloride 50 ml @ 100 mls/hr Q48H IV Last administered on 09/22/18at 15:48; Start 09/22/18 at 14:00 Meropenem 500 mg/ Sodium Chloride 50 ml @ 100 mls/hr Q8HRS IV Last administered on 09/23/18at 05:34; Start 09/22/18 at 14:00 Bupivacaine HCl/ Epinephrine Bitart (Sensorcain-Mpf Epi 0.5%-[id number]) 30 ml STK -MED ONCE .ROUTE ; Start 09/22/18 at 14:34; Stop 09/22/18 at 15:35; Status DC Bupivacaine HCl (Sensorcaine Mpf 0.5%) 30 ml STK-MED ONCE .ROUTE ; Start at 14:35; Stop 09/22/18 at 15:35; Status DC Propofol 20 ml @ As Directed STK-MED ONCE IV ; Start 09/22/18 at 15:56; Stop at 15:57; Status DC Lidocaine HCl (Lidocaine Pf 2% Vial) 5 ml STK-MED ONCE .ROUTE ; Start 09/22/18 at 15:56; Stop 09/22/18 at 15:57; Status DC Dexamethasone Sodium Phosphate (Decadron) 20 mg STK-MED ONCE .ROUTE ; Start at 16:00; Stop 09/22/18 at 16:01; Status DC Ondansetron HCl (Zofran) 4 mg STK-MED ONCE .ROUTE ; Start 09/22/18 at 16:00; Stop 09/22/18 at 16:01; Status DC Phenylephrine HCl (PHENYLEPHRINE in 0.9% NACL PF) 1 mg STK-MED ONCE IV ; Start 09/22/18 at 16:17; Stop 09/22/18 at 16:18; Status DC Fentanyl Citrate (Fentanyl 2ml Vial) 100 mcg STK-MED ONCE .ROUTE ; Start at 16:30; Stop 09/22/18 at 16:31; Status DC Sevoflurane (Ultane) 30 ml STK-MED ONCE IH ; Start 09/22/18 at 16:53; Stop 09/22 at 16:54; Status DC Al Hydroxide/Mg Hydroxide (Mylanta Plus Xs) 30 ml PRN Q3HRS PRN PO HEARTBURN / GAS; Start 09/22/18 at 17:30 Naloxone HCl (Narcan) 0.1 mg PRN Q2MIN PRN IV SEE COMMENTS; Start 09/22/18 at 17:30 Heparin Sodium (Porcine) (Heparin Sodium) 5,000 unit Q8HRS SQ Last administered on 09/23/18at 05:39; Start 09/22/18 at 22:00 Sodium Chloride (Normal Saline Flush) 3 ml QSHIFT PRN IV AFTER MEDS AND BLOOD DRAWS; Start 09/22/18 at 17:30 Sodium Chloride 1,000 ml @ 100 mls/hr Q10H IV Last administered on 09/23/18at 02:26; Start 09/22/18 at 18:00 Acetaminophen/ Hydrocodone Bitart (Lortab 5/325) 1 tab PRN Q4HRS PRN PO MILD PAIN Last administered on 09/23/18at 05:40; Start 09/22/18 at 17:30 Ondansetron HCl (Zofran) 4 mg PRN Q6HRS PRN IV NAUESA, 1ST CHOICE; Start at 17:30 Prochlorperazine Edisylate (Compazine) 5 mg PRN Q6HRS PRN IV N/V, 2nd Choice, MR X1; Start 09/22/18 at 17:30 Docusate Sodium (Colace) 100 mg BID PO Last administered on 09/23/18at 08:18; Start 09/22/18 at 21:00 Active Scripts Active Potassium Chloride 20 Meq Tab.er.prt 1 Tab PO DAILY Reported Lisinopril 20 Mg Tablet 10 Mg PO DAILY Xarelto (Rivaroxaban) 20 Mg Tablet 20 Mg PO DAILY Vitals/I & O Vital Sign - Last 24 Hours 09/22/18 09/22/18 09/22/18 09/22/18 14:50 17:10 17:10 17:25 Temp 99 97.4 97.4 99.0 97.4 97.4 Pulse 100 81 81 Resp 23 B/P (MAP) 107/64 103/55 105/52 Pulse Ox 100 99 97 O2 Delivery Room Air Mask Simple Mask Nasal Cannula O2 Flow Rate 10 10 2 09/22/18 09/22/18 09/22/18 09/22/18 17:40 17:55 18:10 18:10 Temp 97.4 98.1 98.1 97.4 98.1 98.1 Pulse 88 84 79 Resp 20 B/P (MAP) 103/58 111/64 107/60 Pulse Ox 99 97 97 O2 Delivery Nasal Cannula Nasal Cannula Nasal Cannula Mask O2 Flow Rate 2 2 2 2 09/22/18 09/22/18 09/22/18 09/22/18 18:15 18:17 18:30 18:45 Temp 98.3 98.3 Resp 19 B/P (MAP) 101/62 (75) 110/62 (78) 119/58 (78) Pulse Ox 99 98 99 98 O2 Delivery Room Air Room Air Room Air Room Air 09/22/18 09/22/18 09/22/18 09/22/18 19:00 19:30 20:00 20:00 Pulse 90 86 B/P (MAP) 116/65 (82) 114/62 (79) 111/60 (77) Pulse Ox 98 97 100 O2 Delivery Nasal Cannula O2 Flow Rate 2.0 3/09/22/18 09/23/18 09/23/18 21:00 22:54 03:00 05:40 Temp 98.6 98.6 Pulse 79 72 73 Resp 18 B/P (MAP) 102/60 (74) 96/55 (69) 120/72 (88) Pulse Ox 100 100 97 97 O2 Delivery Nasal Cannula Nasal Cannula O2 Flow Rate 2.0 2.0 09/23/18 09/23/18 09/23/18 07:00 08:00 11:00 Temp 98.6 98.3 98.6 98.3 Pulse 62 71 Resp 17 16 B/P (MAP) 109/55 (73) 106/61 (76) Pulse Ox 100 98 O2 Delivery Room Air Room Air Room Air Intake and Output 09/22/18 09/22/18 09/23/18 15:00 23:00 07:00 Intake Total 1100 ml 940 ml 50 ml Output Total 600 ml 1350 ml Balance 500 ml -410 ml 50 ml Nutrition Consultation Dietary Evaluation: Recommendations by RD: Increase Calorie Intake, Protein supplementation Comments: sending ensure clear supplements while on clear liquid diet rec adv to regular as tolerated/may benefit from renal diet-watching labs REC mvi and vit c, RN notified Expected Outcomes/Goals: to meet > 75% est nutr needs Malnutrition Findings: Food and Nutrition Intake (Mod: <75% est energy req 7days Weight Status: Appropriate DWAYNE TIDWELL MD Sep 23, 2018 12:46
[2018-09-23] MEDS: MICAFUNGIN 100 MG in IV DEXTROSE 5% 100ML 100 ML IV SCH (13:45)
--- NOTE | 2018-09-23 14:45 | PDOC ---
Renal-Progress Notes Subjective Notes Notes STILL HAS FLANK PAIN History of Present Illness Hx of present illness STABLE Vitals Vitals Vital Signs Date Time Temp Pulse Resp B/P (MAP) Pulse Ox O2 Delivery O2 Flow Rate FiO2 09/23/18 11:00 98.3 71 16 106/61 (76) 98 Room Air 98.3 09/23/18 05:40 2.0 Weight Weight [ ] I.O. Intake and Output Intake and Output 09/23/18 07:00 Intake Total 2090 ml Output Total 1950 ml Balance 140 ml Intake Oral 240 ml IV Total 1850 ml Output Urine Total 1300 ml Stool Total 600 ml Estimated Blood Loss 50 ml # Voids 1 Labs Labs Laboratory Tests Test 09/23/18 08:05 White Blood Count 14.2 x10^3/uL (4.0-11.0) Red Blood Count 3.88 x10^6/uL (4.30-5.70) Hemoglobin 10.3 g/dL (13.0-17.5) Hematocrit 32.6 % (39.0-53.0) Mean Corpuscular Volume 84 fL (79-100) Mean Corpuscular Hemoglobin 26 pg (25-35) Mean Corpuscular Hemoglobin Concent 32 g/dL (31-37) Red Cell Distribution Width 19.1 % (11.5-14.5) Platelet Count 212 x10^3/uL (140-400) Neutrophils (%) (Auto) 95 % (31-73) Lymphocytes (%) (Auto) 2 % (24-48) Monocytes (%) (Auto) 3 % (0-9) Eosinophils (%) (Auto) 0 % (0-3) Basophils (%) (Auto) 0 % (0-3) Neutrophils # (Auto) 13.5 x10^3uL (1.8-7.7) Lymphocytes # (Auto) 0.3 x10^3/uL (1.0-4.8) Monocytes # (Auto) 0.4 x10^3/uL (0.0-1.1) Eosinophils # (Auto) 0.0 x10^3/uL (0.0-0.7) Basophils # (Auto) 0.0 x10^3/uL (0.0-0.2) Sodium Level 141 mmol/L (136-145) Potassium Level 3.6 mmol/L (3.5-5.1) Chloride Level 107 mmol/L (98-107) Carbon Dioxide Level 21 mmol/L (21-32) Anion Gap 13 (6-14) Blood Urea Nitrogen 60 mg/dL (8-26) Creatinine 1.7 mg/dL (0.7-1.3) Estimated GFR (Cockcroft-Gault) 40.7 Glucose Level 158 mg/dL (70-99) Calcium Level 8.7 mg/dL (8.5-10.1) Micro Micro Microbiology 09/21/18 Blood Culture - Preliminary, Resulted NO GROWTH AFTER 1 DAY 09/21/18 Anaerobic/Aerobic Culture, Resulted Pending 09/21/18 Anaerobic Culture Result 1 (PRIMITIVO), Resulted Pending 09/21/18 Aerobic Culture, Resulted Pending 09/21/18 Aerobic Culture Result 1 (PRIMITIVO), Resulted Pending 09/21/18 Gram Stain - Final, Resulted 09/21/18 Gram Stain Result 1 (PRIMITIVO) - Final, Resulted 09/21/18 Gram Stain Result 2 (PRIMITIVO) - Final, Resulted 09/21/18 Gram Stain Result 3 (PRIMITIVO) - Final, Resulted 09/21/18 Gram Stain Result 4 (PRIMITIVO) - Final, Resulted 09/21/18 Anaerobic/Aerobic Culture, Resulted Pending 09/21/18 Anaerobic Culture Result 1 (PRIMITIVO), Resulted Pending 09/21/18 Aerobic Culture, Resulted Pending 09/21/18 Aerobic Culture Result 1 (PRIMITIVO), Resulted Pending 09/21/18 Gram Stain - Final, Resulted 09/21/18 Gram Stain Result 1 (PRIMITIVO) - Final, Resulted 09/21/18 Gram Stain Result 2 (PRIMITIVO) - Final, Resulted 09/21/18 Gram Stain Result 3 (PRIMITIVO) - Final, Resulted Review of Systems Constitutional: yes: alert, oriented Ears/Nose/Throat: Yes: no symptom reported Eyes: Yes: no symptom reported Pulmonary: Yes no symptom reported Cardiovascular: Yes no symptom reported Gastrointestional: Yes: nausea, abdominal pain Genitourinary: Yes: no symptom reported Musculoskeletal: Yes: no symptom reported Skin: Yes no symptom reported Psychiatric/Neurological: Yes: no symptom reported Endocrine: Yes: no symptom reported Hematologic/Lymphatic: Yes: no symptom reported Physical Exam General Appearance: no apparent distress Skin: warm Respiratory: bilateral CTA Heart: S1S2, RRR Genitourinary: bladder flat Extremities: pulses present Neurology: alert, oriented Musculoskeletal: Osteoarthritis Assessment Assessment IMP THAD WITH IMPROVED TO 1.7 CKD STAGE 3 WITH CR OF 1.4 SEPSIS UTI LEUCOCYTOSIS SEPSIS AGMA 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
[2018-09-23 15:00] VITALS: BP 114/65
[2018-09-23] MEDS: DAPTOmycin (GENERIC) IVPB 480 MG in IV NORMAL SALINE 50ML 50 ML IV SCH (15:26)
[2018-09-23] MEDS: RIVAROXABAN 10 MG TABLET. PO SCH (17:11)
--- NOTE | 2018-09-23 18:00 | NUR ---
Wound Care: Consult to eval and treat for multiple open abdominal wounds and scrotal abscess. Per surgeon, not to change scrotal dressing until 09/24/18. approached pt to address abdominal wounds, pt eating dinner and requested that we return tomorrow morning.
[2018-09-23 19:00] VITALS: BP 94/56
[2018-09-23 23:00] VITALS: BP 122/74
[2018-09-24 02:57] VITALS: BP 105/60
[2018-09-24] MEDS: MEROPENEM 500 MG in IV NORMAL SALINE 50ML 50 ML IV SCH ×3 (04:56→20:51)
[2018-09-24 05:20] LABS: BASO % 0 % (0-3); EOS % 0 % (0-3); HEMATOCRIT 28.3 % (39.0-53.0); HEMOGLOBIN 9.1 g/dL (13.0-17.5); LYMPH # 0.3 x10^3/uL (1.0-4.8); LYMPH % 2 % (24-48); MEAN CORPUSCULAR HEMOGLOBIN 27 pg (25-35); MEAN CORPUSCULAR HGB CONC 32 g/dL (31-37); MEAN CORPUSCULAR VOLUME 84 fL (79-100); MONO # 0.4 x10^3/uL (0.0-1.1); MONO % 2 % (0-9); NEUT # 16.2 x10^3uL (1.8-7.7); NEUT % 96 % (31-73); PLATELET COUNT 198 x10^3/uL (140-400); RED BLOOD COUNT 3.36 x10^6/uL (4.30-5.70); WHITE BLOOD COUNT 16.9 x10^3/uL (4.0-11.0)
[2018-09-24 05:31] LABS: CALCIUM 8.5 mg/dL (8.5-10.1); CREATININE 1.2 mg/dL (0.7-1.3); GFR 60.8; POTASSIUM 3.5 mmol/L (3.5-5.1)
[2018-09-24 07:00] VITALS: BP 121/66
[2018-09-24] MEDS: MULTIVITAMIN with MINERAL TABLET. PO SCH (07:48)
[2018-09-24] MEDS: DOCUSATE SODIUM 100 MG CAPSULE. PO SCH ×2 (07:48→20:51)
[2018-09-24] MEDS: ASCORBIC ACID 500 MG TABLET PO SCH (07:48)
--- NOTE | 2018-09-24 08:27 | PDOC ---
SURGICAL PROGRESS NOTE Subjective tolerating jello pain minimal Vital Signs Vital Signs Date Time Temp Pulse Resp B/P (MAP) Pulse Ox O2 Delivery O2 Flow Rate FiO2 09/24/18 07:00 97.3 68 18 121/66 (84) 99 Room Air 97.3 09/24/18 02:57 2.0 I&O Intake and Output 09/24/18 07:00 Intake Total 2850 ml Output Total 4425 ml Balance -1575 ml IV Total 2850 ml Output Urine Total 3450 ml Stool Total 975 ml General: Alert, Oriented X3, Cooperative, No acute distress Abdomen: Soft, Other (abdominal wound dressed ) Labs Laboratory Tests Test 09/23/18 08:05 09/24/18 04:10 White Blood Count 14.2 x10^3/uL (4.0-11.0) 16.9 x10^3/uL (4.0-11.0) Red Blood Count 3.88 x10^6/uL (4.30-5.70) 3.36 x10^6/uL (4.30-5.70) Hemoglobin 10.3 g/dL (13.0-17.5) 9.1 g/dL (13.0-17.5) Hematocrit 32.6 % (39.0-53.0) 28.3 % (39.0-53.0) Mean Corpuscular Volume 84 fL (79-100) 84 fL (79-100) Mean Corpuscular Hemoglobin 26 pg (25-35) 27 pg (25-35) Mean Corpuscular Hemoglobin Concent 32 g/dL (31-37) 32 g/dL (31-37) Red Cell Distribution Width 19.1 % (11.5-14.5) 19.0 % (11.5-14.5) Platelet Count 212 x10^3/uL (140-400) 198 x10^3/uL (140-400) Neutrophils (%) (Auto) 95 % (31-73) 96 % (31-73) Lymphocytes (%) (Auto) 2 % (24-48) 2 % (24-48) Monocytes (%) (Auto) 3 % (0-9) 2 % (0-9) Eosinophils (%) (Auto) 0 % (0-3) 0 % (0-3) Basophils (%) (Auto) 0 % (0-3) 0 % (0-3) Neutrophils # (Auto) 13.5 x10^3uL (1.8-7.7) 16.2 x10^3uL (1.8-7.7) Lymphocytes # (Auto) 0.3 x10^3/uL (1.0-4.8) 0.3 x10^3/uL (1.0-4.8) Monocytes # (Auto) 0.4 x10^3/uL (0.0-1.1) 0.4 x10^3/uL (0.0-1.1) Eosinophils # (Auto) 0.0 x10^3/uL (0.0-0.7) 0.0 x10^3/uL (0.0-0.7) Basophils # (Auto) 0.0 x10^3/uL (0.0-0.2) 0.0 x10^3/uL (0.0-0.2) Sodium Level 141 mmol/L (136-145) 140 mmol/L (136-145) Potassium Level 3.6 mmol/L (3.5-5.1) 3.5 mmol/L (3.5-5.1) Chloride Level 107 mmol/L (98-107) 108 mmol/L (98-107) Carbon Dioxide Level 21 mmol/L (21-32) 21 mmol/L (21-32) Anion Gap 13 (6-14) 11 (6-14) Blood Urea Nitrogen 60 mg/dL (8-26) 41 mg/dL (8-26) Creatinine 1.7 mg/dL (0.7-1.3) 1.2 mg/dL (0.7-1.3) Estimated GFR (Cockcroft-Gault) 40.7 60.8 Glucose Level 158 mg/dL (70-99) 141 mg/dL (70-99) Calcium Level 8.7 mg/dL (8.5-10.1) 8.5 mg/dL (8.5-10.1) Erythrocyte Sedimentation Rate 128 (0-15) Laboratory Tests Test 09/24/18 04:10 White Blood Count 16.9 x10^3/uL (4.0-11.0) Red Blood Count 3.36 x10^6/uL (4.30-5.70) Hemoglobin 9.1 g/dL (13.0-17.5) Hematocrit 28.3 % (39.0-53.0) Mean Corpuscular Volume 84 fL (79-100) Mean Corpuscular Hemoglobin 27 pg (25-35) Mean Corpuscular Hemoglobin Concent 32 g/dL (31-37) Red Cell Distribution Width 19.0 % (11.5-14.5) Platelet Count 198 x10^3/uL (140-400) Neutrophils (%) (Auto) 96 % (31-73) Lymphocytes (%) (Auto) 2 % (24-48) Monocytes (%) (Auto) 2 % (0-9) Eosinophils (%) (Auto) 0 % (0-3) Basophils (%) (Auto) 0 % (0-3) Neutrophils # (Auto) 16.2 x10^3uL (1.8-7.7) Lymphocytes # (Auto) 0.3 x10^3/uL (1.0-4.8) Monocytes # (Auto) 0.4 x10^3/uL (0.0-1.1) Eosinophils # (Auto) 0.0 x10^3/uL (0.0-0.7) Basophils # (Auto) 0.0 x10^3/uL (0.0-0.2) Erythrocyte Sedimentation Rate 128 (0-15) Sodium Level 140 mmol/L (136-145) Potassium Level 3.5 mmol/L (3.5-5.1) Chloride Level 108 mmol/L (98-107) Carbon Dioxide Level 21 mmol/L (21-32) Anion Gap 11 (6-14) Blood Urea Nitrogen 41 mg/dL (8-26) Creatinine 1.2 mg/dL (0.7-1.3) Estimated GFR (Cockcroft-Gault) 60.8 Glucose Level 141 mg/dL (70-99) Calcium Level 8.5 mg/dL (8.5-10.1) Problem List Problems Medical Problems: (1) Sepsis Status: Acute Assessment/Plan continue wound care MAKI WILSON APRN Sep 24, 2018 08:27
--- NOTE | 2018-09-24 08:49 | PDOC ---
SUBJECTIVE Subjective Pt did well overnight. Area is very sensitive on exam, but he feels better than before the surgery. Catheter working well. OBJECTIVE Objective Physical Exam: General appearance: Alert and Oriented Head: Normocephalic, without obvious abnormality Eyes: conjunctivae/corneas clear. PERRL, EOM's intact. Fundi benign Back: negative Lungs: Regular respirations, non labored breathing. Abdomen: + colostomy bag in place, red-streaked area on left side of abdomen receding/improving. Pelvic: Swollen scrotum with [address] + Saravia catheter draining yellow urine with small amount of sediment. Device in good working order. Vital Signs Vital Signs Date Time Temp Pulse Resp B/P (MAP) Pulse Ox O2 Delivery O2 Flow Rate FiO2 09/24/18 07:00 97.3 68 18 121/66 (84) 99 Room Air 97.3 09/24/18 02:57 98.3 69 18 105/60 (75) 99 Room Air 2.0 98.3 09/23/18 23:00 97.5 81 18 122/74 (90) 100 Room Air 2.0 97.5 09/23/18 19:57 Room Air 09/23/18 19:00 98.1 82 16 94/56 (69) 98 Nasal Cannula 2.0 98.1 09/23/18 15:00 98.4 68 17 114/65 (81) 99 Room Air 98.4 09/23/18 11:00 98.3 71 16 106/61 (76) 98 Room Air 98.3 I & O Intake and Output 09/24/18 07:00 Intake Total 2850 ml Output Total 4425 ml Balance -1575 ml IV Total 2850 ml Output Urine Total 3450 ml Stool Total 975 ml PHYSICAL EXAM Physical Exam General appearance: Alert and Oriented Head: Normocephalic, without obvious abnormality Eyes: conjunctivae/corneas clear. PERRL, EOM's intact. Fundi benign Back: negative Lungs: Regular respirations, non labored breathing. Abdomen: + colostomy bag in place, red-streaked area on left side of abdomen receding/improving. Pelvic: Swollen scrotum with [address] + Saravia catheter draining yellow urine with small amount of sediment. Device in good working order. ASSESSMENT/PLAN Assessment/Plan Consult was entered for wound care yesterday to change dressings today. Discussed with patient that he should see them today Nursing to maintain Saravia and nolberto drains for now. Saravia will have to stay in place until patient is more mobile and swelling is down in scrotum. Continue antibiotic management. Problems: (1) Sepsis COMMENT Lab Laboratory Tests Test 09/24/18 04:10 White Blood Count 16.9 x10^3/uL (4.0-11.0) Red Blood Count 3.36 x10^6/uL (4.30-5.70) Hemoglobin 9.1 g/dL (13.0-17.5) Hematocrit 28.3 % (39.0-53.0) Mean Corpuscular Volume 84 fL (79-100) Mean Corpuscular Hemoglobin 27 pg (25-35) Mean Corpuscular Hemoglobin Concent 32 g/dL (31-37) Red Cell Distribution Width 19.0 % (11.5-14.5) Platelet Count 198 x10^3/uL (140-400) Neutrophils (%) (Auto) 96 % (31-73) Lymphocytes (%) (Auto) 2 % (24-48) Monocytes (%) (Auto) 2 % (0-9) Eosinophils (%) (Auto) 0 % (0-3) Basophils (%) (Auto) 0 % (0-3) Neutrophils # (Auto) 16.2 x10^3uL (1.8-7.7) Lymphocytes # (Auto) 0.3 x10^3/uL (1.0-4.8) Monocytes # (Auto) 0.4 x10^3/uL (0.0-1.1) Eosinophils # (Auto) 0.0 x10^3/uL (0.0-0.7) Basophils # (Auto) 0.0 x10^3/uL (0.0-0.2) Erythrocyte Sedimentation Rate 128 (0-15) Sodium Level 140 mmol/L (136-145) Potassium Level 3.5 mmol/L (3.5-5.1) Chloride Level 108 mmol/L (98-107) Carbon Dioxide Level 21 mmol/L (21-32) Anion Gap 11 (6-14) Blood Urea Nitrogen 41 mg/dL (8-26) Creatinine 1.2 mg/dL (0.7-1.3) Estimated GFR (Cockcroft-Gault) 60.8 Glucose Level 141 mg/dL (70-99) Calcium Level 8.5 mg/dL (8.5-10.1) Imaging CT ABD/Pelvis IMPRESSION: 1. There is extensive soft tissue density and gas along the left lateral abdominal wall and flank, and extending inferiorly into the left inguinal region and left scrotum. In this clinical context, findings are most compatible with soft tissue infection with gas-forming organism. Necrotizing fasciitis should be considered. 2. Multiple low-density lesions in the liver. Most were seen previously, but at least one is new and measures greater than simple fluid density. This could still represent a complex cyst or benign hemangioma. Further evaluation with follow-up CT scan or MRI could be of benefit when clinically feasible. 3. Cholelithiasis. 4. Stable left adrenal nodule. Nutrition Consultation Dietary Evaluation: Recommendations by RD: Increase Calorie Intake, Protein supplementation Comments: sending ensure clear supplements while on clear liquid diet rec adv to regular as tolerated/may benefit from renal diet-watching labs REC mvi and vit c, RN notified Expected Outcomes/Goals: to meet > 75% est nutr needs Malnutrition Findings: Food and Nutrition Intake (Mod: <75% est energy req 7days Weight Status: Appropriate Problem Qualifiers (1) Sepsis: Sepsis type: sepsis due to unspecified organism Qualified Codes: A41.9 - Sepsis, unspecified organism JOSE COLON APRN Sep 24, 2018 08:49
--- NOTE | 2018-09-24 10:30 | PDOC ---
Infectious Disease Note Subjective: Subjective Pt says postop pain is under control feels much better today no f/c/nv abdo wounds cont to drain ROS: ROS Negative except for above. Vital Signs: Vital Signs Vital Signs Date Time Temp Pulse Resp B/P (MAP) Pulse Ox O2 Delivery O2 Flow Rate FiO2 09/24/18 07:00 97.3 68 18 121/66 (84) 99 Room Air 97.3 09/24/18 02:57 2.0 Physical Exam: PHYSICAL EXAM GENERAL: Alertxox3 male, lying in bed comfortably, cooperative, in no acute distress. HEENT: Normocephalic, atraumatic. Anicteric. Oral mucosa moist. No thrush. NECK: Supple. LUNGS: Clear bilaterally. HEART: S1, S2, tachycardia. No murmurs. ABDOMEN: Soft. Two midline wounds dressed, inguinal Lt and scrotal swelling dressing intact, dry induration and redness lt lateral abdomen present ,improving slowly, receding from previous marked lines EXTREMITIES: No edema. No cyanosis. PSYCHIATRIC: Appropriate mood and affect. Medications: Inpatient Meds: Current Medications Medications (Trade) Dose Ordered Sig/Joseph Start Time Stop Time Status Last Admin Dose Admin Acetaminophen (Tylenol) 650 mg PRN Q4HRS PRN 09/21/18 14:45 09/22/18 14:44 DC Acetaminophen/ Hydrocodone Bitart (Lortab 5/325) 1 tab PRN Q4HRS PRN 09/22/18 17:30 09/23/18 05:40 1 TAB Al Hydroxide/Mg Hydroxide (Mylanta Plus Xs) 30 ml PRN Q3HRS PRN 09/22/18 17:30 Ascorbic Acid (Vitamin C) 500 mg DAILY 09/22/18 12:00 09/24/18 07:48 500 MG Bupivacaine HCl (Sensorcaine Mpf 0.5%) 30 ml STK-MED ONCE 09/22/18 14:35 09/22/18 15:35 DC Bupivacaine HCl/ Epinephrine Bitart (Sensorcain-Mpf Epi 0.5%-1:427513) 30 ml STK-MED ONCE 09/22/18 14:34 09/22/18 15:35 DC Daptomycin 480 mg/ Sodium Chloride 50 ml @ 100 mls/hr Q24H 09/23/18 14:00 09/23/18 15:26 100 MLS/HR Dexamethasone Sodium Phosphate (Decadron) 20 mg STK-MED ONCE 09/22/18 16:00 09/22/18 16:01 DC Docusate Sodium (Colace) 100 mg BID 09/22/18 21:00 09/24/18 07:48 100 MG Fentanyl Citrate (Fentanyl 2ml Vial) 100 mcg STK-MED ONCE 09/22/18 16:30 09/22/18 16:31 DC Heparin Sodium (Porcine) (Heparin Sodium) 5,000 unit Q8HRS 09/22/18 22:00 09/23/18 13:06 DC 09/23/18 05:39 5,000 UNIT Info (Anti-Coagulation Monitoring By Pharmacy) 1 each PRN DAILY PRN 09/22/18 11:30 Info (CONTRAST GIVEN -- Rx MONITORING) 1 each PRN DAILY PRN 09/22/18 07:15 09/24/18 07:14 DC Iohexol (Omnipaque 240 Mg/ml) 50 ml 1X ONCE 09/22/18 07:15 09/22/18 07:16 DC 09/22/18 07:15 50 ML Lidocaine HCl (Lidocaine Pf 2% Vial) 5 ml STK-MED ONCE 09/22/18 15:56 09/22/18 15:57 DC Linezolid/Dextrose 300 ml @ 300 mls/hr Q12HR 09/22/18 13:00 09/24/18 07:53 300 MLS/HR Lisinopril (Prinivil) 10 mg DAILY 09/22/18 09:00 09/22/18 13:06 DC 09/22/18 11:24 10 MG Meropenem 500 mg/ Sodium Chloride 50 ml @ 100 mls/hr Q8HRS 09/22/18 14:00 09/24/18 04:56 100 MLS/HR Micafungin Sodium 100 mg/Dextrose 100 ml @ 100 mls/hr Q24H 09/22/18 13:00 09/23/18 13:45 100 MLS/HR Multivitamins (Thera M Plus) 1 tab DAILY 09/22/18 12:00 09/24/18 07:48 1 TAB Naloxone HCl (Narcan) 0.1 mg PRN Q2MIN PRN 09/22/18 17:30 Ondansetron HCl (Zofran) 4 mg PRN Q6HRS PRN 09/22/18 17:30 Phenylephrine HCl (PHENYLEPHRINE in 0.9% NACL PF) 1 mg STK-MED ONCE 09/22/18 16:17 09/22/18 16:18 DC Piperacillin Sod/ Tazobactam Sod (Zosyn Per Pharmacy) 1 each PRN DAILY PRN 09/21/18 18:00 09/22/18 17:34 DC Piperacillin Sod/ Tazobactam Sod 3.375 gm/Sodium Chloride 50 ml @ 100 mls/hr Q6HRS 09/22/18 00:00 09/22/18 12:40 DC 09/22/18 05:48 100 MLS/HR Prochlorperazine Edisylate (Compazine) 5 mg PRN Q6HRS PRN 09/22/18 17:30 Propofol 20 ml @ As Directed STK-MED ONCE 09/22/18 15:56 09/22/18 15:57 DC Rivaroxaban (Xarelto) 20 mg DAILYWSUP 09/23/18 17:00 09/23/18 17:11 20 MG Sevoflurane (Ultane) 30 ml STK-MED ONCE 09/22/18 16:53 09/22/18 16:54 DC Sodium Chloride 1,000 ml @ 100 mls/hr Q10H 09/22/18 18:00 09/24/18 00:00 100 MLS/HR Sodium Chloride (Normal Saline Flush) 3 ml QSHIFT PRN 09/22/18 17:30 Vancomycin HCl (Vanco Per Pharmacy) 1 each PRN DAILY PRN 09/21/18 14:45 09/22/18 12:37 DC 09/21/18 18:36 1 EACH Vancomycin HCl (Vancomycin Trough Level) 1 each 1X ONCE 09/23/18 14:30 09/23/18 14:30 DC Vancomycin HCl 1.25 gm/Sodium Chloride 250 ml @ 166.667 mls/hr Q24H 09/22/18 15:00 09/22/18 15:00 DC Labs: Lab Laboratory Tests Test 09/24/18 04:10 White Blood Count 16.9 x10^3/uL (4.0-11.0) Red Blood Count 3.36 x10^6/uL (4.30-5.70) Hemoglobin 9.1 g/dL (13.0-17.5) Hematocrit 28.3 % (39.0-53.0) Mean Corpuscular Volume 84 fL (79-100) Mean Corpuscular Hemoglobin 27 pg (25-35) Mean Corpuscular Hemoglobin Concent 32 g/dL (31-37) Red Cell Distribution Width 19.0 % (11.5-14.5) Platelet Count 198 x10^3/uL (140-400) Neutrophils (%) (Auto) 96 % (31-73) Lymphocytes (%) (Auto) 2 % (24-48) Monocytes (%) (Auto) 2 % (0-9) Eosinophils (%) (Auto) 0 % (0-3) Basophils (%) (Auto) 0 % (0-3) Neutrophils # (Auto) 16.2 x10^3uL (1.8-7.7) Lymphocytes # (Auto) 0.3 x10^3/uL (1.0-4.8) Monocytes # (Auto) 0.4 x10^3/uL (0.0-1.1) Eosinophils # (Auto) 0.0 x10^3/uL (0.0-0.7) Basophils # (Auto) 0.0 x10^3/uL (0.0-0.2) Erythrocyte Sedimentation Rate 128 (0-15) Sodium Level 140 mmol/L (136-145) Potassium Level 3.5 mmol/L (3.5-5.1) Chloride Level 108 mmol/L (98-107) Carbon Dioxide Level 21 mmol/L (21-32) Anion Gap 11 (6-14) Blood Urea Nitrogen 41 mg/dL (8-26) Creatinine 1.2 mg/dL (0.7-1.3) Estimated GFR (Cockcroft-Gault) 60.8 Glucose Level 141 mg/dL (70-99) Calcium Level 8.5 mg/dL (8.5-10.1) Micro PENILE WOUND RUN DATE: 09/22/18 PAGE 1 RUN TIME: 2107 [facility] [address] [place] [address] Jose Haynes M.D., Patroller PATIENT: KELLY DONOVAN ACCT: [id number] LOC: [address] [place] [address] U : [id number] AGE/SX: 63/M ROOM: 6 REG : 09/21/[address]: DWAYNE TIDWELL MD : 1955 BED: 1 DIS : STATUS: ADM IN TLOC: SPEC #: [id number] MAGEN: 09/21/18 STATUS: RES REQ #: [id number] RECD: 09/21/[address]: DWAYNE TIDWELL MD SOURCE: PENIS ENTR: 09/21/[address] [facility] [address]: MARCELO HENNESSY MD SPDESC: AMY SNOW MD, VENU S MD NO PCP ORDERED: LUZ MARINA/JAKI/MARIO Procedure Result ANAEROBIC-AEROBIC CULTURE PENDING ANAEROBIC RES 1 PENDING AEROBIC CULT PENDING AEROBIC RES 1 PENDING GRAM STAIN Final Final report GRAM STAIN RES 1 Final Comment No white blood cells seen. GRAM STAIN RES 2 Final Comment Many gram negative rods. GRAM STAIN RES 3 Final Comment Many gram positive cocci. GRAM STAIN RES 4 Final Comment CONTINUED ON NEXT PAGE RUN DATE: 09/22/18 PAGE 2 RUN TIME: 2107 [facility] [address] [place] [address] Jose Haynes M.D., Patroller SPEC: [id number] PATIENT: KELLY DONOVAN [id number] ( Continued) Procedure Result GRAM STAIN RES 4 Final (continued) Few gram positive rods. Performed at: [facility] [address] [place] [address] [address], [place], [place] [id number] Stove Cleaner: ALEXANDRA Carrillo MD, Phone: [phone] ABDOMINAL WOUND RUN DATE: 09/22/18 PAGE 1 RUN TIME: 2107 [facility] [address] [place] [address] Jose Haynes M.D., Patroller PATIENT: KELLY DONOVAN ACCT: [id number] LOC: [address] [place] [address] U : [id number] AGE/SX: 63/M ROOM: [facility] REG : 09/21/[address]: DWAYNE TIDWELL MD : 1955 BED: 1 DIS : STATUS: ADM IN TLOC: SPEC #: [id number] MAGEN: 09/21/18 STATUS: RES REQ #: [id number] RECD: 09/21/[address] [facility] [address]: DWAYNE TIDWELL MD SOURCE: ABDOMEN ENTR: 09/21/[address] [facility] [address]: MARCELO HENNESSY MD [facility]: WOUND LETA,DAVE VELASCO MD, MD NO PCP ORDERED: ANAER/AEROB/GS Procedure Result ANAEROBIC-AEROBIC CULTURE PENDING ANAEROBIC RES 1 PENDING AEROBIC CULT PENDING AEROBIC RES 1 PENDING GRAM STAIN Final Final report GRAM STAIN RES 1 Final Comment No white blood cells seen. GRAM STAIN RES 2 Final Comment Moderate gram negative rods. 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
[2018-09-24 11:00] VITALS: BP 117/59
--- NOTE | 2018-09-24 11:38 | PDOC ---
PROGRESS NOTES Chief Complaint Chief Complaint Sepsis with elevated lactate 7, now normal Necrotizing fasciitis Scrotal edema status post IND OR 09/22/18 by urology Closed anion gap Renal failure, acute - improving Hyponatremia 134-very dry, IMPROVING SIGNIF Tachycardia 120s to 1300 sinus, RESLVED Leukocytosis improving BILateral scrotal swelling improving History recent UTI-a week ago Colon CA on chemotherapy KU status post colon Resection with indwelling colostomy Ventral hernia mesh wound, infected INdwelling colostomy bag right History of Present Illness History of Present Illness Looks and feels way better than on admission Now he is not super dry, IV fluids running, good urine output CReat now normalized HAd I and D by urology 09/22 because of significant scrotal swelling edema with necrotizing fasciitis on CAT scan ID also on board Patient came from home and usually can ambulate So far no ambulation here =- PT/OT ordered He has no complaints aside from he guards his abdominal area when I tried to inspect the wounds, some tenderness there Plan: await PTOT - hesitant to go to rehab or SNU Continue IV antibiotics and local wound care Continue IV fluids currently running at 100 mL an hour Avoid nephrotoxins Follow blood cultures Inc pain med coverage Vitals Vitals Vital Signs Date Time Temp Pulse Resp B/P (MAP) Pulse Ox O2 Delivery O2 Flow Rate FiO2 09/24/18 08:00 Room Air 2.0 09/24/18 07:00 97.3 68 18 121/66 (84) 99 97.3 Physical Exam Physical Exam GENERAL: Alertxox3 male, lying in bed comfortably, cooperative, in no acute distress. HEENT: Normocephalic, atraumatic. Anicteric. Oral mucosa moist. No thrush. NECK: Supple. LUNGS: Clear bilaterally. HEART: S1, S2, tachycardia. No murmurs. ABDOMEN: Soft. Two midline wounds dressed, inguinal Lt and scrotal swelling dressing intact, dry induration and redness lt lateral abdomen present ,improving slowly, receding from previous marked lines EXTREMITIES: No edema. No cyanosis. PSYCHIATRIC: Appropriate mood and affect. General: Alert, Oriented X3, Cooperative, No acute distress Heart: Regular rate, Normal S1, Normal S2, Other (TACHYCARDIA) Lungs: Clear Abdomen: Soft, Other (abdominal wound dressed ) Extremities: Other (PICC line in; duration left scrotum with indwelling drain, left to heal by secondary intention) Skin: No breakdown Labs LABS Laboratory Tests Test 09/24/18 04:10 White Blood Count 16.9 x10^3/uL (4.0-11.0) Red Blood Count 3.36 x10^6/uL (4.30-5.70) Hemoglobin 9.1 g/dL (13.0-17.5) Hematocrit 28.3 % (39.0-53.0) Mean Corpuscular Volume 84 fL (79-100) Mean Corpuscular Hemoglobin 27 pg (25-35) Mean Corpuscular Hemoglobin Concent 32 g/dL (31-37) Red Cell Distribution Width 19.0 % (11.5-14.5) Platelet Count 198 x10^3/uL (140-400) Neutrophils (%) (Auto) 96 % (31-73) Lymphocytes (%) (Auto) 2 % (24-48) Monocytes (%) (Auto) 2 % (0-9) Eosinophils (%) (Auto) 0 % (0-3) Basophils (%) (Auto) 0 % (0-3) Neutrophils # (Auto) 16.2 x10^3uL (1.8-7.7) Lymphocytes # (Auto) 0.3 x10^3/uL (1.0-4.8) Monocytes # (Auto) 0.4 x10^3/uL (0.0-1.1) Eosinophils # (Auto) 0.0 x10^3/uL (0.0-0.7) Basophils # (Auto) 0.0 x10^3/uL (0.0-0.2) Erythrocyte Sedimentation Rate 128 (0-15) Sodium Level 140 mmol/L (136-145) Potassium Level 3.5 mmol/L (3.5-5.1) Chloride Level 108 mmol/L (98-107) Carbon Dioxide Level 21 mmol/L (21-32) Anion Gap 11 (6-14) Blood Urea Nitrogen 41 mg/dL (8-26) Creatinine 1.2 mg/dL (0.7-1.3) Estimated GFR (Cockcroft-Gault) 60.8 Glucose Level 141 mg/dL (70-99) Calcium Level 8.5 mg/dL (8.5-10.1) Review of Systems Review of Systems A 14 point ROS was completed with the following noted as positive: Other systems reviewed and negative. \CONSTITUTIONAL: No fever or chills EYES: No recent changes SKIN: No rash or itching CARDIOVASCULAR: No chest pain, syncope, palpitations, or edema RESPIRATORY: No SOB or cough GASTROINTESTINAL: No nausea, vomiting or abdominal pain NEUROLOGICAL: No headaches or weakness ENDOCRINE: No cold or heat intolerance GENITOURINARY: No urgency or frequency of urination MUSCULOSKELETAL: No back pain or joint pain LYMPHATICS: No enlarged lymph nodes PSYCHIATRIC: No anxiety or depression Assessment and Plan Assessmemt and Plan Problems Medical Problems: (1) Sepsis Status: Acute Comment Review of Relevant I have reviewed the following items renetta (where applicable) has been applied. Labs Laboratory Tests Test 09/23/18 08:05 09/24/18 04:10 White Blood Count 14.2 x10^3/uL (4.0-11.0) 16.9 x10^3/uL (4.0-11.0) Red Blood Count 3.88 x10^6/uL (4.30-5.70) 3.36 x10^6/uL (4.30-5.70) Hemoglobin 10.3 g/dL (13.0-17.5) 9.1 g/dL (13.0-17.5) Hematocrit 32.6 % (39.0-53.0) 28.3 % (39.0-53.0) Mean Corpuscular Volume 84 fL (79-100) 84 fL (79-100) Mean Corpuscular Hemoglobin 26 pg (25-35) 27 pg (25-35) Mean Corpuscular Hemoglobin Concent 32 g/dL (31-37) 32 g/dL (31-37) Red Cell Distribution Width 19.1 % (11.5-14.5) 19.0 % (11.5-14.5) Platelet Count 212 x10^3/uL (140-400) 198 x10^3/uL (140-400) Neutrophils (%) (Auto) 95 % (31-73) 96 % (31-73) Lymphocytes (%) (Auto) 2 % (24-48) 2 % (24-48) Monocytes (%) (Auto) 3 % (0-9) 2 % (0-9) Eosinophils (%) (Auto) 0 % (0-3) 0 % (0-3) Basophils (%) (Auto) 0 % (0-3) 0 % (0-3) Neutrophils # (Auto) 13.5 x10^3uL (1.8-7.7) 16.2 x10^3uL (1.8-7.7) Lymphocytes # (Auto) 0.3 x10^3/uL (1.0-4.8) 0.3 x10^3/uL (1.0-4.8) Monocytes # (Auto) 0.4 x10^3/uL (0.0-1.1) 0.4 x10^3/uL (0.0-1.1) Eosinophils # (Auto) 0.0 x10^3/uL (0.0-0.7) 0.0 x10^3/uL (0.0-0.7) Basophils # (Auto) 0.0 x10^3/uL (0.0-0.2) 0.0 x10^3/uL (0.0-0.2) Sodium Level 141 mmol/L (136-145) 140 mmol/L (136-145) Potassium Level 3.6 mmol/L (3.5-5.1) 3.5 mmol/L (3.5-5.1) Chloride Level 107 mmol/L (98-107) 108 mmol/L (98-107) Carbon Dioxide Level 21 mmol/L (21-32) 21 mmol/L (21-32) Anion Gap 13 (6-14) 11 (6-14) Blood Urea Nitrogen 60 mg/dL (8-26) 41 mg/dL (8-26) Creatinine 1.7 mg/dL (0.7-1.3) 1.2 mg/dL (0.7-1.3) Estimated GFR (Cockcroft-Gault) 40.7 60.8 Glucose Level 158 mg/dL (70-99) 141 mg/dL (70-99) Calcium Level 8.7 mg/dL (8.5-10.1) 8.5 mg/dL (8.5-10.1) Erythrocyte Sedimentation Rate 128 (0-15) Laboratory Tests Test 09/24/18 04:10 White Blood Count 16.9 x10^3/uL (4.0-11.0) Red Blood Count 3.36 x10^6/uL (4.30-5.70) Hemoglobin 9.1 g/dL (13.0-17.5) Hematocrit 28.3 % (39.0-53.0) Mean Corpuscular Volume 84 fL (79-100) Mean Corpuscular Hemoglobin 27 pg (25-35) Mean Corpuscular Hemoglobin Concent 32 g/dL (31-37) Red Cell Distribution Width 19.0 % (11.5-14.5) Platelet Count 198 x10^3/uL (140-400) Neutrophils (%) (Auto) 96 % (31-73) Lymphocytes (%) (Auto) 2 % (24-48) Monocytes (%) (Auto) 2 % (0-9) Eosinophils (%) (Auto) 0 % (0-3) Basophils (%) (Auto) 0 % (0-3) Neutrophils # (Auto) 16.2 x10^3uL (1.8-7.7) Lymphocytes # (Auto) 0.3 x10^3/uL (1.0-4.8) Monocytes # (Auto) 0.4 x10^3/uL (0.0-1.1) Eosinophils # (Auto) 0.0 x10^3/uL (0.0-0.7) Basophils # (Auto) 0.0 x10^3/uL (0.0-0.2) Erythrocyte Sedimentation Rate 128 (0-15) Sodium Level 140 mmol/L (136-145) Potassium Level 3.5 mmol/L (3.5-5.1) Chloride Level 108 mmol/L (98-107) Carbon Dioxide Level 21 mmol/L (21-32) Anion Gap 11 (6-14) Blood Urea Nitrogen 41 mg/dL (8-26) Creatinine 1.2 mg/dL (0.7-1.3) Estimated GFR (Cockcroft-Gault) 60.8 Glucose Level 141 mg/dL (70-99) Calcium Level 8.5 mg/dL (8.5-10.1) Microbiology 09/21/18 Blood Culture - Preliminary, Resulted NO GROWTH AFTER 2 DAYS 09/21/18 Anaerobic/Aerobic Culture, Resulted Pending 09/21/18 Anaerobic Culture Result 1 (PRIMITIVO), Resulted Pending 09/21/18 Aerobic Culture, Resulted Pending 09/21/18 Aerobic Culture Result 1 (PRIMITIVO), Resulted Pending 09/21/18 Gram Stain - Final, Resulted 09/21/18 Gram Stain Result 1 (PRIMITIVO) - Final, Resulted 09/21/18 Gram Stain Result 2 (PRIMITIVO) - Final, Resulted 09/21/18 Gram Stain Result 3 (PRIMITIVO) - Final, Resulted 09/21/18 Gram Stain Result 4 (PRIMITIVO) - Final, Resulted 09/21/18 Urine Culture - Final, Complete 09/21/18 Urine Culture Result 1 (PRIMITIVO) - Final, Complete 09/21/18 Anaerobic/Aerobic Culture, Resulted Pending 09/21/18 Anaerobic Culture Result 1 (PRIMITIVO), Resulted Pending 09/21/18 Aerobic Culture, Resulted Pending 09/21/18 Aerobic Culture Result 1 (PRIMITIVO), Resulted Pending 09/21/18 Gram Stain - Final, Resulted 09/21/18 Gram Stain Result 1 (PRIMITIVO) - Final, Resulted 09/21/18 Gram Stain Result 2 (PRIMITIVO) - Final, Resulted 09/21/18 Gram Stain Result 3 (PRIMITIVO) - Final, Resulted Medications Current Medications Sodium Chloride 1,000 ml @ 1,000 mls/hr 1X ONCE IV Last administered on at 13:56; Start 09/21/18 at 14:00; Stop 09/21/18 at 14:59; Status DC Piperacillin Sod/ Tazobactam Sod 3.375 gm/Sodium Chloride 50 ml @ 100 mls/hr 1X ONCE IV Last administered on 09/21/18at 14:59; Start 09/21/18 at 14:30; Stop 09/21/18 at 14:59; Status DC Sodium Chloride 1,000 ml @ 1,000 mls/hr 1X ONCE IV Last administered on at 14:55; Start 09/21/18 at 14:30; Stop 09/21/18 at 15:29; Status DC Ondansetron HCl (Zofran) 4 mg PRN Q8HRS PRN IV NAUSEA/VOMITING; Start 09/21/18 at 14:45; Stop 09/21/18 at 16:31; Status DC Sodium Chloride 1,000 ml @ 150 mls/hr Q6H40M IV Last administered on at 11:24; Start 09/21/18 at 14:40; Stop 09/22/18 at 14:39; Status DC Acetaminophen (Tylenol) 650 mg PRN Q4HRS PRN PO FEVER; Start 09/21/18 at 14:45 ; Stop 09/22/18 at 14:44; Status DC Vancomycin HCl 250 ml @ 250 mls/hr 1X ONCE IV ; Start 09/21/18 at 14:45; Stop 09/21/18 at 15:44; Status UNV Vancomycin HCl (Vanco Per Pharmacy) 1 each PRN DAILY PRN MC SEE COMMENTS Last administered on 09/21/18at 18:36; Start 09/21/18 at 14:45; Stop 09/22/18 at 12:37 ; Status DC Vancomycin HCl 1.25 gm/Sodium Chloride 250 ml @ 166.667 mls/hr 1X ONCE IV Last administered on 09/21/18at 15:34; Start 09/21/18 at 15:00; Stop 09/21/18 at 16:29; Status DC Ondansetron HCl (Zofran) 4 mg PRN Q6HRS PRN IV NAUSEA/VOMITING; Start 09/21/18 at 16:45; Stop 09/22/18 at 17:35; Status DC Piperacillin Sod/ Tazobactam Sod (Zosyn Per Pharmacy) 1 each PRN DAILY PRN MC SEE COMMENTS; Start 09/21/18 at 18:00; Stop 09/22/18 at 17:34; Status DC Lisinopril (Prinivil) 10 mg DAILY PO Last administered on 09/22/18at 11:24; Start 09/22/18 at 09:00; Stop 09/22/18 at 13:06; Status DC Piperacillin Sod/ Tazobactam Sod 3.375 gm/Sodium Chloride 50 ml @ 100 mls/hr Q6HRS IV Last administered on 09/22/18at 05:48; Start 09/22/18 at 00:00; Stop at 12:40; Status DC Heparin Sodium (Porcine) (Heparin Sodium) 5,000 unit Q8HRS SQ Last administered on 09/22/18at 05:54; Start 09/21/18 at 18:00; Stop 09/22/18 at 11:15 ; Status DC Vancomycin HCl 1.25 gm/Sodium Chloride 250 ml @ 166.667 mls/hr Q24H IV ; Start 09/22/18 at 15:00; Stop 09/22/18 at 15:00; Status DC Vancomycin HCl (Vancomycin Trough Level) 1 each 1X ONCE MC ; Start 09/23/18 at 14:30; Stop 09/23/18 at 14:30; Status DC Iohexol (Omnipaque 240 Mg/ml) 50 ml 1X ONCE PO Last administered on 09/22/18at 07:15; Start 09/22/18 at 07:15; Stop 09/22/18 at 07:16; Status DC Info (CONTRAST GIVEN -- Rx MONITORING) 1 each PRN DAILY PRN MC SEE COMMENTS; Start 09/22/18 at 07:15; Stop 09/24/18 at 07:14; Status DC Ascorbic Acid (Vitamin C) 500 mg DAILY PO Last administered on 09/24/18at 07:48 ; Start 09/22/18 at 12:00 Multivitamins (Thera M Plus) 1 tab DAILY PO Last administered on 09/24/18at 07: 48; Start 09/22/18 at 12:00 Rivaroxaban (Xarelto) 15 mg DAILYWSUP PO ; Start 09/22/18 at 17:00; Stop at 14:17; Status DC Info (Anti-Coagulation Monitoring By Pharmacy) 1 each PRN DAILY PRN MC SEE COMMENTS; Start 09/22/18 at 11:30 Micafungin Sodium 100 mg/Dextrose 100 ml @ 100 mls/hr Q24H IV Last administered on 09/23/18at 13:45; Start 09/22/18 at 13:00 Linezolid/Dextrose 300 ml @ 300 mls/hr Q12HR IV Last administered on at 07:53; Start 09/22/18 at 13:00 Daptomycin 480 mg/ Sodium Chloride 50 ml @ 100 mls/hr Q48H IV Last administered on 09/22/18at 15:48; Start 09/22/18 at 14:00; Stop 09/23/18 at 12:55 ; Status DC Meropenem 500 mg/ Sodium Chloride 50 ml @ 100 mls/hr Q8HRS IV Last administered on 09/24/18at 04:56; Start 09/22/18 at 14:00 Bupivacaine HCl/ Epinephrine Bitart (Sensorcain-Mpf Epi 0.5%-1:[id number]) 30 ml STK -MED ONCE .ROUTE ; Start 09/22/18 at 14:34; Stop 09/22/18 at 15:35; Status DC Bupivacaine HCl (Sensorcaine Mpf 0.5%) 30 ml STK-MED ONCE .ROUTE ; Start at 14:35; Stop 09/22/18 at 15:35; Status DC Propofol 20 ml @ As Directed STK-MED ONCE IV ; Start 09/22/18 at 15:56; Stop at 15:57; Status DC Lidocaine HCl (Lidocaine Pf 2% Vial) 5 ml STK-MED ONCE .ROUTE ; Start 09/22/18 at 15:56; Stop 09/22/18 at 15:57; Status DC Dexamethasone Sodium Phosphate (Decadron) 20 mg STK-MED ONCE .ROUTE ; Start at 16:00; Stop 09/22/18 at 16:01; Status DC Ondansetron HCl (Zofran) 4 mg STK-MED ONCE .ROUTE ; Start 09/22/18 at 16:00; Stop 09/22/18 at 16:01; Status DC Phenylephrine HCl (PHENYLEPHRINE in 0.9% NACL PF) 1 mg STK-MED ONCE IV ; Start 09/22/18 at 16:17; Stop 09/22/18 at 16:18; Status DC Fentanyl Citrate (Fentanyl 2ml Vial) 100 mcg STK-MED ONCE .ROUTE ; Start at 16:30; Stop 09/22/18 at 16:31; Status DC Sevoflurane (Ultane) 30 ml STK-MED ONCE IH ; Start 09/22/18 at 16:53; Stop 09/22 at 16:54; Status DC Al Hydroxide/Mg Hydroxide (Mylanta Plus Xs) 30 ml PRN Q3HRS PRN PO HEARTBURN / GAS; Start 09/22/18 at 17:30 Naloxone HCl (Narcan) 0.1 mg PRN Q2MIN PRN IV SEE COMMENTS; Start 09/22/18 at 17:30 Heparin Sodium (Porcine) (Heparin Sodium) 5,000 unit Q8HRS SQ Last administered on 09/23/18at 05:39; Start 09/22/18 at 22:00; Stop 09/23/18 at 13:06 ; Status DC Sodium Chloride (Normal Saline Flush) 3 ml QSHIFT PRN IV AFTER MEDS AND BLOOD DRAWS; Start 09/22/18 at 17:30 Sodium Chloride 1,000 ml @ 100 mls/hr Q10H IV Last administered on 09/24/18at 00:00; Start 09/22/18 at 18:00 Acetaminophen/ Hydrocodone Bitart (Lortab 5/325) 1 tab PRN Q4HRS PRN PO MILD PAIN Last administered on 09/23/18at 05:40; Start 09/22/18 at 17:30 Ondansetron HCl (Zofran) 4 mg PRN Q6HRS PRN IV NAUESA, 1ST CHOICE; Start at 17:30 Prochlorperazine Edisylate (Compazine) 5 mg PRN Q6HRS PRN IV N/V, 2nd Choice, MR X1; Start 09/22/18 at 17:30 Docusate Sodium (Colace) 100 mg BID PO Last administered on 09/24/18at 07:48; Start 09/22/18 at 21:00 Daptomycin 480 mg/ Sodium Chloride 50 ml @ 100 mls/hr Q24H IV Last administered on 09/23/18at 15:26; Start 09/23/18 at 14:00 Rivaroxaban (Xarelto) 20 mg DAILYWSUP PO Last administered on 09/23/18at 17:11; Start 09/23/18 at 17:00 Active Scripts Active Potassium Chloride 20 Meq Tab.er.prt 1 Tab PO DAILY Reported Lisinopril 20 Mg Tablet 10 Mg PO DAILY Xarelto (Rivaroxaban) 20 Mg Tablet 20 Mg PO DAILY Vitals/I & O Vital Sign - Last 24 Hours 09/23/18 09/23/18 09/23/18 09/23/18 15:00 19:00 19:57 23:00 Temp 98.4 98.1 97.5 98.4 98.1 97.5 Pulse 68 82 81 Resp 17 16 18 B/P (MAP) 114/65 (81) 94/56 (69) 122/74 (90) Pulse Ox 99 98 100 O2 Delivery Room Air Nasal Cannula Room Air Room Air O2 Flow Rate 2.0 2.0 09/24/18 09/24/18 09/24/18 02:57 07:00 08:00 Temp 98.3 97.3 98.3 97.3 Pulse 69 68 Resp 18 18 B/P (MAP) 105/60 (75) 121/66 (84) Pulse Ox 99 99 O2 Delivery Room Air Room Air Room Air O2 Flow Rate 2.0 2.0 Intake and Output 09/23/18 09/23/18 09/24/18 14:59 22:59 06:59 Intake Total 1400 ml 50 ml 1400 ml Output Total 2550 ml 1025 ml 850 ml Balance -1150 ml -975 ml 550 ml Nutrition Consultation Dietary Evaluation: Recommendations by RD: Increase Calorie Intake, Protein supplementation Comments: sending ensure clear supplements while on clear liquid diet rec adv to regular as tolerated/may benefit from renal diet-watching labs REC mvi and vit c, RN notified Expected Outcomes/Goals: to meet > 75% est nutr needs Malnutrition Findings: Food and Nutrition Intake (Mod: <75% est energy req 7days Weight Status: Appropriate DWAYNE TIDWELL MD Sep 24, 2018 11:37
--- NOTE | 2018-09-24 12:10 | PDOC ---
Renal-Progress Notes Subjective Notes Notes NONE History of Present Illness Hx of present illness STABLE Vitals Vitals Vital Signs Date Time Temp Pulse Resp B/P (MAP) Pulse Ox O2 Delivery O2 Flow Rate FiO2 09/24/18 11:00 98.1 64 18 117/59 (78) 100 Room Air 98.1 09/24/18 08:00 2.0 Weight Weight [ ] I.O. Intake and Output Intake and Output 09/24/18 07:00 Intake Total 2850 ml Output Total 4425 ml Balance -1575 ml IV Total 2850 ml Output Urine Total 3450 ml Stool Total 975 ml Labs Labs Laboratory Tests Test 09/24/18 04:10 White Blood Count 16.9 x10^3/uL (4.0-11.0) Red Blood Count 3.36 x10^6/uL (4.30-5.70) Hemoglobin 9.1 g/dL (13.0-17.5) Hematocrit 28.3 % (39.0-53.0) Mean Corpuscular Volume 84 fL (79-100) Mean Corpuscular Hemoglobin 27 pg (25-35) Mean Corpuscular Hemoglobin Concent 32 g/dL (31-37) Red Cell Distribution Width 19.0 % (11.5-14.5) Platelet Count 198 x10^3/uL (140-400) Neutrophils (%) (Auto) 96 % (31-73) Lymphocytes (%) (Auto) 2 % (24-48) Monocytes (%) (Auto) 2 % (0-9) Eosinophils (%) (Auto) 0 % (0-3) Basophils (%) (Auto) 0 % (0-3) Neutrophils # (Auto) 16.2 x10^3uL (1.8-7.7) Lymphocytes # (Auto) 0.3 x10^3/uL (1.0-4.8) Monocytes # (Auto) 0.4 x10^3/uL (0.0-1.1) Eosinophils # (Auto) 0.0 x10^3/uL (0.0-0.7) Basophils # (Auto) 0.0 x10^3/uL (0.0-0.2) Erythrocyte Sedimentation Rate 128 (0-15) Sodium Level 140 mmol/L (136-145) Potassium Level 3.5 mmol/L (3.5-5.1) Chloride Level 108 mmol/L (98-107) Carbon Dioxide Level 21 mmol/L (21-32) Anion Gap 11 (6-14) Blood Urea Nitrogen 41 mg/dL (8-26) Creatinine 1.2 mg/dL (0.7-1.3) Estimated GFR (Cockcroft-Gault) 60.8 Glucose Level 141 mg/dL (70-99) Calcium Level 8.5 mg/dL (8.5-10.1) Micro Micro Microbiology 09/21/18 Blood Culture - Preliminary, Resulted NO GROWTH AFTER 2 DAYS 09/21/18 Anaerobic/Aerobic Culture, Resulted Pending 09/21/18 Anaerobic Culture Result 1 (PRIMITIVO), Resulted Pending 09/21/18 Aerobic Culture, Resulted Pending 09/21/18 Aerobic Culture Result 1 (PRIMITIVO), Resulted Pending 09/21/18 Gram Stain - Final, Resulted 09/21/18 Gram Stain Result 1 (PRIMITIVO) - Final, Resulted 09/21/18 Gram Stain Result 2 (PRIMITIVO) - Final, Resulted 09/21/18 Gram Stain Result 3 (PRIMITIVO) - Final, Resulted 09/21/18 Gram Stain Result 4 (PRIMITIVO) - Final, Resulted 09/21/18 Urine Culture - Final, Complete 09/21/18 Urine Culture Result 1 (PRIMITIVO) - Final, Complete 09/21/18 Anaerobic/Aerobic Culture, Resulted Pending 09/21/18 Anaerobic Culture Result 1 (PRIMITIVO), Resulted Pending 09/21/18 Aerobic Culture, Resulted Pending 09/21/18 Aerobic Culture Result 1 (PRIMITIVO), Resulted Pending 09/21/18 Gram Stain - Final, Resulted 09/21/18 Gram Stain Result 1 (PRIMITIVO) - Final, Resulted 09/21/18 Gram Stain Result 2 (PRIMITIVO) - Final, Resulted 09/21/18 Gram Stain Result 3 (PRIMITIVO) - Final, Resulted Review of Systems Constitutional: yes: alert, oriented Ears/Nose/Throat: Yes: no symptom reported Eyes: Yes: no symptom reported Pulmonary: Yes no symptom reported Cardiovascular: Yes no symptom reported Gastrointestional: Yes: nausea, abdominal pain Genitourinary: Yes: no symptom reported Musculoskeletal: Yes: no symptom reported Skin: Yes no symptom reported Psychiatric/Neurological: Yes: no symptom reported Endocrine: Yes: no symptom reported Hematologic/Lymphatic: Yes: no symptom reported Physical Exam General Appearance: no apparent distress Skin: warm Respiratory: bilateral CTA Heart: S1S2, RRR Genitourinary: bladder flat Extremities: pulses present Neurology: alert, oriented Musculoskeletal: Osteoarthritis Assessment Assessment IMP THAD WITH IMPROVED TO 1.2 CKD STAGE 3 WITH CR OF 1.4 SEPSIS UTI LEUCOCYTOSIS SEPSIS AGMA 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
[2018-09-24] MEDS: IV 1/2 NORMAL SALINE 1,000 ML IV SCH ×3 (12:41→20:50)
[2018-09-24] MEDS: MICAFUNGIN 100 MG in IV DEXTROSE 5% 100ML 100 ML IV SCH (13:18)
[2018-09-24] MEDS: DAPTOmycin (GENERIC) IVPB 480 MG in IV NORMAL SALINE 50ML 50 ML IV SCH (14:23)
[2018-09-24] MEDS: ANTI-COAG MONITOR BY PHARMACY. MC PRN (14:42)
[2018-09-24 15:00] VITALS: BP 131/68
[2018-09-24] MEDS: HYDROcodone/APAP 5/325MG 1 TAB TABLET PO PRN (15:59)
[2018-09-24] MEDS: RIVAROXABAN 10 MG TABLET. PO SCH (16:00)
--- NOTE | 2018-09-24 16:36 | NUR ---
Wound Care Wound care consult for abscess to scrotum and open incision to abdomen. Pt dosed with pain medication by [facility]. Removed packing, cleansed, pictured and measured wounds. Scrotum wound s/p I&D 09/23, foul odor noted, testicle exposed. Repacked with Dakin's soaked Kerlix and covered with ABD and mesh underwear. Abd wound redressed with AG packing and covered with ABD. Ostomy bag changed, replaced with 2 piece bag. WC will continue to follow for dressing changes.
[2018-09-24 19:00] VITALS: BP 129/70
[2018-09-24 23:00] VITALS: BP_SYST 116; BP_SYST 143; BP_DIAS 61; BP_DIAS 72
[2018-09-25 03:00] VITALS: BP 139/74
[2018-09-25] MEDS: MEROPENEM 500 MG in IV NORMAL SALINE 50ML 50 ML IV SCH ×3 (05:36→22:49)
[2018-09-25] MEDS: IV 1/2 NORMAL SALINE 1,000 ML IV SCH ×2 (05:45→16:00)
[2018-09-25 06:29] LABS: BASO % 0 % (0-3); EOS % 0 % (0-3); HEMATOCRIT 31.8 % (39.0-53.0); HEMOGLOBIN 10.4 g/dL (13.0-17.5); LYMPH # 0.6 x10^3/uL (1.0-4.8); LYMPH % 5 % (24-48); MEAN CORPUSCULAR HEMOGLOBIN 28 pg (25-35); MEAN CORPUSCULAR HGB CONC 33 g/dL (31-37); MEAN CORPUSCULAR VOLUME 84 fL (79-100); MONO # 0.3 x10^3/uL (0.0-1.1); MONO % 3 % (0-9); NEUT # 10.4 x10^3uL (1.8-7.7); NEUT % 92 % (31-73); PLATELET COUNT 201 x10^3/uL (140-400); RED BLOOD COUNT 3.76 x10^6/uL (4.30-5.70); RED CELL DISTRIBUTION WIDTH 18.9 % (11.5-14.5); WHITE BLOOD COUNT 11.3 x10^3/uL (4.0-11.0)
[2018-09-25 06:43] LABS: CALCIUM 8.1 mg/dL (8.5-10.1); MAGNESIUM 1.5 mg/dL (1.8-2.4); POTASSIUM 3.6 mmol/L (3.5-5.1)
[2018-09-25 07:00] VITALS: BP 147/77
[2018-09-25] MEDS: ASCORBIC ACID 500 MG TABLET PO SCH (08:10)
[2018-09-25] MEDS: DOCUSATE SODIUM 100 MG CAPSULE. PO SCH ×2 (08:10→21:23)
[2018-09-25] MEDS: MULTIVITAMIN with MINERAL TABLET. PO SCH (08:10)
--- NOTE | 2018-09-25 08:10 | NUR ---
SW following pt. SW requested for new PT/OT order to assess skilled needs. ID currently following pt. SW will continue to assess dc needs.
--- NOTE | 2018-09-25 10:28 | PDOC ---
SUBJECTIVE Subjective Per nursing it took 2 hours for wound care team to change his wounds and nolberto drains do continue to put out a moderate amount of drainage. He thinks swelling is better and catheter is not bothering him. OBJECTIVE Objective Physical Exam: General appearance: Alert and Oriented Head: Normocephalic, without obvious abnormality Eyes: conjunctivae/corneas clear. PERRL, EOM's intact. Fundi benign Lungs: Regular respirations, non labored breathing Abdomen: soft, colostomy bag in place . Pelvic: + scrotal infection with [address] Scrotal swelling continues to improve + Saravia catheter draining clear yellow urine. Exam less tender than yesterday. Vital Signs Vital Signs Date Time Temp Pulse Resp B/P (MAP) Pulse Ox O2 Delivery O2 Flow Rate FiO2 09/25/18 08:00 Room Air 2.0 09/25/18 07:00 98.6 76 18 147/77 (100) 100 Room Air 98.6 09/25/18 03:00 98.0 71 17 139/74 (95) 100 Room Air 98.0 09/24/18 23:00 98.0 66 17 143/72 (95) 100 Room Air 98.0 09/24/18 19:43 Room Air 09/24/18 19:00 98.5 71 17 129/70 (89) 99 Room Air 98.5 09/24/18 16:59 16 Room Air 09/24/18 15:59 18 Room Air 09/24/18 15:00 97.9 66 17 131/68 (89) 99 Room Air 97.9 09/24/18 11:00 98.1 64 18 117/59 (78) 100 Room Air 98.1 I & O Intake and Output 09/25/18 07:00 Intake Total 1400 ml Output Total 3075 ml Balance -1675 ml IV Total 1400 ml Output Urine Total 2800 ml Stool Total 275 ml PHYSICAL EXAM Physical Exam Physical Exam: General appearance: Alert and Oriented Head: Normocephalic, without obvious abnormality Eyes: conjunctivae/corneas clear. PERRL, EOM's intact. Fundi benign Lungs: Regular respirations, non labored breathing Abdomen: soft, colostomy bag in place . Pelvic: + scrotal infection with [address] Scrotal swelling continues to improve + Saravia catheter draining clear yellow urine. Exam less tender than yesterday. ASSESSMENT/PLAN Assessment/Plan Wound care did see patient yesterday and change dressings-Continue wound management per W/C team. Nursing to maintain Saravia and nolberto drains for now. They continue to put out moderate drainage. Saravia will have to stay in place until patient is more mobile and swelling is down in scrotum. ACCOUNTS PAYABLE LEAD did make improvement all the way down to 1.0. WBC improved also at 11.3 Continue antibiotic management. COMMENT Lab Laboratory Tests Test 09/25/18 05:27 White Blood Count 11.3 x10^3/uL (4.0-11.0) Red Blood Count 3.76 x10^6/uL (4.30-5.70) Hemoglobin 10.4 g/dL (13.0-17.5) Hematocrit 31.8 % (39.0-53.0) Mean Corpuscular Volume 84 fL (79-100) Mean Corpuscular Hemoglobin 28 pg (25-35) Mean Corpuscular Hemoglobin Concent 33 g/dL (31-37) Red Cell Distribution Width 18.9 % (11.5-14.5) Platelet Count 201 x10^3/uL (140-400) Neutrophils (%) (Auto) 92 % (31-73) Lymphocytes (%) (Auto) 5 % (24-48) Monocytes (%) (Auto) 3 % (0-9) Eosinophils (%) (Auto) 0 % (0-3) Basophils (%) (Auto) 0 % (0-3) Neutrophils # (Auto) 10.4 x10^3uL (1.8-7.7) Lymphocytes # (Auto) 0.6 x10^3/uL (1.0-4.8) Monocytes # (Auto) 0.3 x10^3/uL (0.0-1.1) Eosinophils # (Auto) 0.0 x10^3/uL (0.0-0.7) Basophils # (Auto) 0.0 x10^3/uL (0.0-0.2) Sodium Level 143 mmol/L (136-145) Potassium Level 3.6 mmol/L (3.5-5.1) Chloride Level 108 mmol/L (98-107) Carbon Dioxide Level 26 mmol/L (21-32) Anion Gap 9 (6-14) Blood Urea Nitrogen 30 mg/dL (8-26) Creatinine 1.0 mg/dL (0.7-1.3) Estimated GFR (Cockcroft-Gault) 75.0 Glucose Level 90 mg/dL (70-99) Calcium Level 8.1 mg/dL (8.5-10.1) Magnesium Level 1.5 mg/dL (1.8-2.4) Nutrition Consultation Dietary Evaluation: Recommendations by RD: Add supplement feedings Comments: per RN diet to adv to regular as tolerated: sending orange flavor lyndsey bid continue mvi and vit c per wound protocal Expected Outcomes/Goals: to meet > 75% est nutr needs- goal ongoing Malnutrition Findings: Food and Nutrition Intake (Mod: <75% est energy req 7days Weight Status: Appropriate JOSE COLON APRN Sep 25, 2018 10:28
[2018-09-25 11:00] VITALS: BP 134/71
[2018-09-25] MEDS: MICAFUNGIN 100 MG in IV DEXTROSE 5% 100ML 100 ML IV SCH (11:54)
--- NOTE | 2018-09-25 11:56 | PDOC ---
Renal-Progress Notes Subjective Notes Notes NONE History of Present Illness Hx of present illness STABLE Vitals Vitals Vital Signs Date Time Temp Pulse Resp B/P (MAP) Pulse Ox O2 Delivery O2 Flow Rate FiO2 09/25/18 11:00 98.1 82 18 134/71 (92) 100 Room Air 98.1 09/25/18 08:00 2.0 Weight Weight [ ] I.O. Intake and Output Intake and Output 09/25/18 06:59 Intake Total 1400 ml Output Total 3075 ml Balance -1675 ml IV Total 1400 ml Output Urine Total 2800 ml Stool Total 275 ml Labs Labs Laboratory Tests Test 09/25/18 05:27 White Blood Count 11.3 x10^3/uL (4.0-11.0) Red Blood Count 3.76 x10^6/uL (4.30-5.70) Hemoglobin 10.4 g/dL (13.0-17.5) Hematocrit 31.8 % (39.0-53.0) Mean Corpuscular Volume 84 fL (79-100) Mean Corpuscular Hemoglobin 28 pg (25-35) Mean Corpuscular Hemoglobin Concent 33 g/dL (31-37) Red Cell Distribution Width 18.9 % (11.5-14.5) Platelet Count 201 x10^3/uL (140-400) Neutrophils (%) (Auto) 92 % (31-73) Lymphocytes (%) (Auto) 5 % (24-48) Monocytes (%) (Auto) 3 % (0-9) Eosinophils (%) (Auto) 0 % (0-3) Basophils (%) (Auto) 0 % (0-3) Neutrophils # (Auto) 10.4 x10^3uL (1.8-7.7) Lymphocytes # (Auto) 0.6 x10^3/uL (1.0-4.8) Monocytes # (Auto) 0.3 x10^3/uL (0.0-1.1) Eosinophils # (Auto) 0.0 x10^3/uL (0.0-0.7) Basophils # (Auto) 0.0 x10^3/uL (0.0-0.2) Sodium Level 143 mmol/L (136-145) Potassium Level 3.6 mmol/L (3.5-5.1) Chloride Level 108 mmol/L (98-107) Carbon Dioxide Level 26 mmol/L (21-32) Anion Gap 9 (6-14) Blood Urea Nitrogen 30 mg/dL (8-26) Creatinine 1.0 mg/dL (0.7-1.3) Estimated GFR (Cockcroft-Gault) 75.0 Glucose Level 90 mg/dL (70-99) Calcium Level 8.1 mg/dL (8.5-10.1) Magnesium Level 1.5 mg/dL (1.8-2.4) Micro Micro Microbiology 09/21/18 Blood Culture - Preliminary, Resulted NO GROWTH AFTER 3 DAYS 09/21/18 Anaerobic/Aerobic Culture, Resulted Pending 09/21/18 Anaerobic Culture Result 1 (PRIMITIVO), Resulted Pending 09/21/18 Aerobic Culture, Resulted Pending 09/21/18 Aerobic Culture Result 1 (PRIMITIVO), Resulted Pending 09/21/18 Gram Stain - Final, Resulted 09/21/18 Gram Stain Result 1 (PRIMITIVO) - Final, Resulted 09/21/18 Gram Stain Result 2 (PRIMITIVO) - Final, Resulted 09/21/18 Gram Stain Result 3 (PRIMITIVO) - Final, Resulted 09/21/18 Gram Stain Result 4 (PRIMITIVO) - Final, Resulted 09/21/18 Urine Culture - Final, Complete 09/21/18 Urine Culture Result 1 (PRIMITIVO) - Final, Complete 09/21/18 Anaerobic/Aerobic Culture, Resulted Pending 09/21/18 Anaerobic Culture Result 1 (PRIMITIVO), Resulted Pending 09/21/18 Aerobic Culture, Resulted Pending 09/21/18 Aerobic Culture Result 1 (PRIMITIVO), Resulted Pending 09/21/18 Gram Stain - Final, Resulted 09/21/18 Gram Stain Result 1 (PRIMITIVO) - Final, Resulted 09/21/18 Gram Stain Result 2 (PRIMITIVO) - Final, Resulted 09/21/18 Gram Stain Result 3 (PRIMITIVO) - Final, Resulted Review of Systems Constitutional: yes: alert, oriented Ears/Nose/Throat: Yes: no symptom reported Eyes: Yes: no symptom reported Pulmonary: Yes no symptom reported Cardiovascular: Yes no symptom reported Gastrointestional: Yes: nausea, abdominal pain Genitourinary: Yes: no symptom reported Musculoskeletal: Yes: no symptom reported Skin: Yes no symptom reported Psychiatric/Neurological: Yes: no symptom reported Endocrine: Yes: no symptom reported Hematologic/Lymphatic: Yes: no symptom reported Physical Exam General Appearance: no apparent distress Skin: warm Respiratory: bilateral CTA Heart: S1S2, RRR Genitourinary: bladder flat Extremities: pulses present Neurology: alert, oriented Musculoskeletal: Osteoarthritis Assessment Assessment IMP THAD RESOLVED LOW MAG CKD STAGE 3 WITH CR OF 1.4 SEPSIS UTI LEUCOCYTOSIS SEPSIS AGMA COLON 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
[2018-09-25] MEDS ORDERED: MAGNESIUM SULFATE 2GM 50 ML IV ONE (12:00)
--- NOTE | 2018-09-25 12:05 | PDOC ---
PROGRESS NOTES Chief Complaint Chief Complaint Sepsis with elevated lactate 7, now normal Necrotizing fasciitis Scrotal edema status post IND OR 09/22/18 by urology Closed anion gap Renal failure, acute - improving Hyponatremia 134-very dry, IMPROVING SIGNIF Tachycardia 120s to 1300 sinus, RESLVED Leukocytosis improving BILateral scrotal swelling improving History recent UTI-a week ago Colon CA on chemotherapy KU status post colon Resection with indwelling colostomy Ventral hernia mesh wound, infected INdwelling colostomy bag right History of Present Illness History of Present Illness Looks and feels way better than on admission Now he is not super dry, IV fluids running, good urine output CReat now normalized HAd I and D by urology 09/22 because of significant scrotal swelling edema with necrotizing fasciitis on CAT scan ID also on board Patient came from home and usually can ambulate So far no ambulation here =- PT/OT ordered He has no complaints aside from he guards his abdominal area when I tried to inspect the wounds, some tenderness there On Zyvox and meropenem by ID ESR 128 WBC 11 with no fevers Urine culture negative Blood culture preliminary negative Some growth on that wound area gram-positive gram-negative on GS and would cx Plan: await PTOT - hesitant to go to rehab or SNU Continue IV antibiotics and local wound care Continue IV fluids currently running at 100 mL an hour Avoid nephrotoxins Follow blood cultures Inc pain med coverage Vitals Vitals Vital Signs Date Time Temp Pulse Resp B/P (MAP) Pulse Ox O2 Delivery O2 Flow Rate FiO2 09/25/18 11:00 98.1 82 18 134/71 (92) 100 Room Air 98.1 09/25/18 08:00 2.0 Physical Exam Physical Exam GENERAL: Alertxox3 male, lying in bed comfortably, cooperative, in no acute distress. HEENT: Normocephalic, atraumatic. Anicteric. Oral mucosa moist. No thrush. NECK: Supple. LUNGS: Clear bilaterally. HEART: S1, S2, tachycardia. No murmurs. ABDOMEN: Soft. Two midline wounds dressed, inguinal Lt and scrotal swelling dressing intact, dry induration and redness lt lateral abdomen present ,improving slowly, receding from previous marked lines EXTREMITIES: No edema. No cyanosis. PSYCHIATRIC: Appropriate mood and affect. General: Alert, Oriented X3, Cooperative, No acute distress Heart: Regular rate, Normal S1, Normal S2, Other (TACHYCARDIA) Lungs: Clear Abdomen: Soft, Other (abdominal wound dressed ) Extremities: Other (PICC line in; duration left scrotum with indwelling drain, left to heal by secondary intention) Skin: No breakdown Labs LABS Laboratory Tests Test 09/25/18 05:27 White Blood Count 11.3 x10^3/uL (4.0-11.0) Red Blood Count 3.76 x10^6/uL (4.30-5.70) Hemoglobin 10.4 g/dL (13.0-17.5) Hematocrit 31.8 % (39.0-53.0) Mean Corpuscular Volume 84 fL (79-100) Mean Corpuscular Hemoglobin 28 pg (25-35) Mean Corpuscular Hemoglobin Concent 33 g/dL (31-37) Red Cell Distribution Width 18.9 % (11.5-14.5) Platelet Count 201 x10^3/uL (140-400) Neutrophils (%) (Auto) 92 % (31-73) Lymphocytes (%) (Auto) 5 % (24-48) Monocytes (%) (Auto) 3 % (0-9) Eosinophils (%) (Auto) 0 % (0-3) Basophils (%) (Auto) 0 % (0-3) Neutrophils # (Auto) 10.4 x10^3uL (1.8-7.7) Lymphocytes # (Auto) 0.6 x10^3/uL (1.0-4.8) Monocytes # (Auto) 0.3 x10^3/uL (0.0-1.1) Eosinophils # (Auto) 0.0 x10^3/uL (0.0-0.7) Basophils # (Auto) 0.0 x10^3/uL (0.0-0.2) Sodium Level 143 mmol/L (136-145) Potassium Level 3.6 mmol/L (3.5-5.1) Chloride Level 108 mmol/L (98-107) Carbon Dioxide Level 26 mmol/L (21-32) Anion Gap 9 (6-14) Blood Urea Nitrogen 30 mg/dL (8-26) Creatinine 1.0 mg/dL (0.7-1.3) Estimated GFR (Cockcroft-Gault) 75.0 Glucose Level 90 mg/dL (70-99) Calcium Level 8.1 mg/dL (8.5-10.1) Magnesium Level 1.5 mg/dL (1.8-2.4) Review of Systems Review of Systems A 14 point ROS was completed with the following noted as positive: Other systems reviewed and negative. \CONSTITUTIONAL: No fever or chills EYES: No recent changes SKIN: No rash or itching CARDIOVASCULAR: No chest pain, syncope, palpitations, or edema RESPIRATORY: No SOB or cough GASTROINTESTINAL: No nausea, vomiting or abdominal pain NEUROLOGICAL: No headaches or weakness ENDOCRINE: No cold or heat intolerance GENITOURINARY: No urgency or frequency of urination MUSCULOSKELETAL: No back pain or joint pain LYMPHATICS: No enlarged lymph nodes PSYCHIATRIC: No anxiety or depression Assessment and Plan Assessmemt and Plan Problems Medical Problems: (1) Sepsis Status: Acute Comment Review of Relevant I have reviewed the following items renetta (where applicable) has been applied. Labs Laboratory Tests Test 09/24/18 04:10 09/25/18 05:27 White Blood Count 16.9 x10^3/uL (4.0-11.0) 11.3 x10^3/uL (4.0-11.0) Red Blood Count 3.36 x10^6/uL (4.30-5.70) 3.76 x10^6/uL (4.30-5.70) Hemoglobin 9.1 g/dL (13.0-17.5) 10.4 g/dL (13.0-17.5) Hematocrit 28.3 % (39.0-53.0) 31.8 % (39.0-53.0) Mean Corpuscular Volume 84 fL (79-100) 84 fL (79-100) Mean Corpuscular Hemoglobin 27 pg (25-35) 28 pg (25-35) Mean Corpuscular Hemoglobin Concent 32 g/dL (31-37) 33 g/dL (31-37) Red Cell Distribution Width 19.0 % (11.5-14.5) 18.9 % (11.5-14.5) Platelet Count 198 x10^3/uL (140-400) 201 x10^3/uL (140-400) Neutrophils (%) (Auto) 96 % (31-73) 92 % (31-73) Lymphocytes (%) (Auto) 2 % (24-48) 5 % (24-48) Monocytes (%) (Auto) 2 % (0-9) 3 % (0-9) Eosinophils (%) (Auto) 0 % (0-3) 0 % (0-3) Basophils (%) (Auto) 0 % (0-3) 0 % (0-3) Neutrophils # (Auto) 16.2 x10^3uL (1.8-7.7) 10.4 x10^3uL (1.8-7.7) Lymphocytes # (Auto) 0.3 x10^3/uL (1.0-4.8) 0.6 x10^3/uL (1.0-4.8) Monocytes # (Auto) 0.4 x10^3/uL (0.0-1.1) 0.3 x10^3/uL (0.0-1.1) Eosinophils # (Auto) 0.0 x10^3/uL (0.0-0.7) 0.0 x10^3/uL (0.0-0.7) Basophils # (Auto) 0.0 x10^3/uL (0.0-0.2) 0.0 x10^3/uL (0.0-0.2) Erythrocyte Sedimentation Rate 128 (0-15) Sodium Level 140 mmol/L (136-145) 143 mmol/L (136-145) Potassium Level 3.5 mmol/L (3.5-5.1) 3.6 mmol/L (3.5-5.1) Chloride Level 108 mmol/L (98-107) 108 mmol/L (98-107) Carbon Dioxide Level 21 mmol/L (21-32) 26 mmol/L (21-32) Anion Gap 11 (6-14) 9 (6-14) Blood Urea Nitrogen 41 mg/dL (8-26) 30 mg/dL (8-26) Creatinine 1.2 mg/dL (0.7-1.3) 1.0 mg/dL (0.7-1.3) Estimated GFR (Cockcroft-Gault) 60.8 75.0 Glucose Level 141 mg/dL (70-99) 90 mg/dL (70-99) Calcium Level 8.5 mg/dL (8.5-10.1) 8.1 mg/dL (8.5-10.1) Magnesium Level 1.5 mg/dL (1.8-2.4) Laboratory Tests Test 09/25/18 05:27 White Blood Count 11.3 x10^3/uL (4.0-11.0) Red Blood Count 3.76 x10^6/uL (4.30-5.70) Hemoglobin 10.4 g/dL (13.0-17.5) Hematocrit 31.8 % (39.0-53.0) Mean Corpuscular Volume 84 fL (79-100) Mean Corpuscular Hemoglobin 28 pg (25-35) Mean Corpuscular Hemoglobin Concent 33 g/dL (31-37) Red Cell Distribution Width 18.9 % (11.5-14.5) Platelet Count 201 x10^3/uL (140-400) Neutrophils (%) (Auto) 92 % (31-73) Lymphocytes (%) (Auto) 5 % (24-48) Monocytes (%) (Auto) 3 % (0-9) Eosinophils (%) (Auto) 0 % (0-3) Basophils (%) (Auto) 0 % (0-3) Neutrophils # (Auto) 10.4 x10^3uL (1.8-7.7) Lymphocytes # (Auto) 0.6 x10^3/uL (1.0-4.8) Monocytes # (Auto) 0.3 x10^3/uL (0.0-1.1) Eosinophils # (Auto) 0.0 x10^3/uL (0.0-0.7) Basophils # (Auto) 0.0 x10^3/uL (0.0-0.2) Sodium Level 143 mmol/L (136-145) Potassium Level 3.6 mmol/L (3.5-5.1) Chloride Level 108 mmol/L (98-107) Carbon Dioxide Level 26 mmol/L (21-32) Anion Gap 9 (6-14) Blood Urea Nitrogen 30 mg/dL (8-26) Creatinine 1.0 mg/dL (0.7-1.3) Estimated GFR (Cockcroft-Gault) 75.0 Glucose Level 90 mg/dL (70-99) Calcium Level 8.1 mg/dL (8.5-10.1) Magnesium Level 1.5 mg/dL (1.8-2.4) Microbiology 09/21/18 Blood Culture - Preliminary, Resulted NO GROWTH AFTER 3 DAYS 09/21/18 Anaerobic/Aerobic Culture, Resulted Pending 09/21/18 Anaerobic Culture Result 1 (PRIMITIVO), Resulted Pending 09/21/18 Aerobic Culture, Resulted Pending 09/21/18 Aerobic Culture Result 1 (PRIMITIVO), Resulted Pending 09/21/18 Gram Stain - Final, Resulted 09/21/18 Gram Stain Result 1 (PRIMITIVO) - Final, Resulted 09/21/18 Gram Stain Result 2 (PRIMITIVO) - Final, Resulted 09/21/18 Gram Stain Result 3 (PRIMITIVO) - Final, Resulted 09/21/18 Gram Stain Result 4 (PRIMITIVO) - Final, Resulted 09/21/18 Urine Culture - Final, Complete 09/21/18 Urine Culture Result 1 (PRIMITIVO) - Final, Complete 09/21/18 Anaerobic/Aerobic Culture, Resulted Pending 09/21/18 Anaerobic Culture Result 1 (PRIMITIVO), Resulted Pending 09/21/18 Aerobic Culture, Resulted Pending 09/21/18 Aerobic Culture Result 1 (PRIMITIVO), Resulted Pending 09/21/18 Gram Stain - Final, Resulted 09/21/18 Gram Stain Result 1 (PRIMITIVO) - Final, Resulted 09/21/18 Gram Stain Result 2 (PRIMITIVO) - Final, Resulted 09/21/18 Gram Stain Result 3 (PRIMITIVO) - Final, Resulted Medications Current Medications Sodium Chloride 1,000 ml @ 1,000 mls/hr 1X ONCE IV Last administered on at 13:56; Start 09/21/18 at 14:00; Stop 09/21/18 at 14:59; Status DC Piperacillin Sod/ Tazobactam Sod 3.375 gm/Sodium Chloride 50 ml @ 100 mls/hr 1X ONCE IV Last administered on 09/21/18at 14:59; Start 09/21/18 at 14:30; Stop 09/21/18 at 14:59; Status DC Sodium Chloride 1,000 ml @ 1,000 mls/hr 1X ONCE IV Last administered on at 14:55; Start 09/21/18 at 14:30; Stop 09/21/18 at 15:29; Status DC Ondansetron HCl (Zofran) 4 mg PRN Q8HRS PRN IV NAUSEA/VOMITING; Start 09/21/18 at 14:45; Stop 09/21/18 at 16:31; Status DC Sodium Chloride 1,000 ml @ 150 mls/hr Q6H40M IV Last administered on at 11:24; Start 09/21/18 at 14:40; Stop 09/22/18 at 14:39; Status DC Acetaminophen (Tylenol) 650 mg PRN Q4HRS PRN PO FEVER; Start 09/21/18 at 14:45 ; Stop 09/22/18 at 14:44; Status DC Vancomycin HCl 250 ml @ 250 mls/hr 1X ONCE IV ; Start 09/21/18 at 14:45; Stop 09/21/18 at 15:44; Status UNV Vancomycin HCl (Vanco Per Pharmacy) 1 each PRN DAILY PRN MC SEE COMMENTS Last administered on 09/21/18at 18:36; Start 09/21/18 at 14:45; Stop 09/22/18 at 12:37 ; Status DC Vancomycin HCl 1.25 gm/Sodium Chloride 250 ml @ 166.667 mls/hr 1X ONCE IV Last administered on 09/21/18at 15:34; Start 09/21/18 at 15:00; Stop 09/21/18 at 16:29; Status DC Ondansetron HCl (Zofran) 4 mg PRN Q6HRS PRN IV NAUSEA/VOMITING; Start 09/21/18 at 16:45; Stop 09/22/18 at 17:35; Status DC Piperacillin Sod/ Tazobactam Sod (Zosyn Per Pharmacy) 1 each PRN DAILY PRN MC SEE COMMENTS; Start 09/21/18 at 18:00; Stop 09/22/18 at 17:34; Status DC Lisinopril (Prinivil) 10 mg DAILY PO Last administered on 09/22/18at 11:24; Start 09/22/18 at 09:00; Stop 09/22/18 at 13:06; Status DC Piperacillin Sod/ Tazobactam Sod 3.375 gm/Sodium Chloride 50 ml @ 100 mls/hr Q6HRS IV Last administered on 09/22/18at 05:48; Start 09/22/18 at 00:00; Stop at 12:40; Status DC Heparin Sodium (Porcine) (Heparin Sodium) 5,000 unit Q8HRS SQ Last administered on 09/22/18at 05:54; Start 09/21/18 at 18:00; Stop 09/22/18 at 11:15 ; Status DC Vancomycin HCl 1.25 gm/Sodium Chloride 250 ml @ 166.667 mls/hr Q24H IV ; Start 09/22/18 at 15:00; Stop 09/22/18 at 15:00; Status DC Vancomycin HCl (Vancomycin Trough Level) 1 each 1X ONCE MC ; Start 09/23/18 at 14:30; Stop 09/23/18 at 14:30; Status DC Iohexol (Omnipaque 240 Mg/ml) 50 ml 1X ONCE PO Last administered on 09/22/18at 07:15; Start 09/22/18 at 07:15; Stop 09/22/18 at 07:16; Status DC Info (CONTRAST GIVEN -- Rx MONITORING) 1 each PRN DAILY PRN MC SEE COMMENTS; Start 09/22/18 at 07:15; Stop 09/24/18 at 07:14; Status DC Ascorbic Acid (Vitamin C) 500 mg DAILY PO Last administered on 09/25/18at 08:10 ; Start 09/22/18 at 12:00 Multivitamins (Thera M Plus) 1 tab DAILY PO Last administered on 09/25/18at 08: 10; Start 09/22/18 at 12:00 Rivaroxaban (Xarelto) 15 mg DAILYWSUP PO ; Start 09/22/18 at 17:00; Stop at 14:17; Status DC Info (Anti-Coagulation Monitoring By Pharmacy) 1 each PRN DAILY PRN MC SEE COMMENTS Last administered on 09/24/18at 14:42; Start 09/22/18 at 11:30 Micafungin Sodium 100 mg/Dextrose 100 ml @ 100 mls/hr Q24H IV Last administered on 09/25/18at 11:54; Start 09/22/18 at 13:00 Linezolid/Dextrose 300 ml @ 300 mls/hr Q12HR IV Last administered on at 08:10; Start 09/22/18 at 13:00 Daptomycin 480 mg/ Sodium Chloride 50 ml @ 100 mls/hr Q48H IV Last administered on 09/22/18at 15:48; Start 09/22/18 at 14:00; Stop 09/23/18 at 12:55 ; Status DC Meropenem 500 mg/ Sodium Chloride 50 ml @ 100 mls/hr Q8HRS IV Last administered on 09/25/18at 05:36; Start 09/22/18 at 14:00 Bupivacaine HCl/ Epinephrine Bitart (Sensorcain-Mpf Epi 0.5%-[id number]) 30 ml STK -MED ONCE .ROUTE ; Start 09/22/18 at 14:34; Stop 09/22/18 at 15:35; Status DC Bupivacaine HCl (Sensorcaine Mpf 0.5%) 30 ml STK-MED ONCE .ROUTE ; Start at 14:35; Stop 09/22/18 at 15:35; Status DC Propofol 20 ml @ As Directed STK-MED ONCE IV ; Start 09/22/18 at 15:56; Stop at 15:57; Status DC Lidocaine HCl (Lidocaine Pf 2% Vial) 5 ml STK-MED ONCE .ROUTE ; Start 09/22/18 at 15:56; Stop 09/22/18 at 15:57; Status DC Dexamethasone Sodium Phosphate (Decadron) 20 mg STK-MED ONCE .ROUTE ; Start at 16:00; Stop 09/22/18 at 16:01; Status DC Ondansetron HCl (Zofran) 4 mg STK-MED ONCE .ROUTE ; Start 09/22/18 at 16:00; Stop 09/22/18 at 16:01; Status DC Phenylephrine HCl (PHENYLEPHRINE in 0.9% NACL PF) 1 mg STK-MED ONCE IV ; Start 09/22/18 at 16:17; Stop 09/22/18 at 16:18; Status DC Fentanyl Citrate (Fentanyl 2ml Vial) 100 mcg STK-MED ONCE .ROUTE ; Start at 16:30; Stop 09/22/18 at 16:31; Status DC Sevoflurane (Ultane) 30 ml STK-MED ONCE IH ; Start 09/22/18 at 16:53; Stop 09/22 at 16:54; Status DC Al Hydroxide/Mg Hydroxide (Mylanta Plus Xs) 30 ml PRN Q3HRS PRN PO HEARTBURN / GAS; Start 09/22/18 at 17:30 Naloxone HCl (Narcan) 0.1 mg PRN Q2MIN PRN IV SEE COMMENTS; Start 09/22/18 at 17:30 Heparin Sodium (Porcine) (Heparin Sodium) 5,000 unit Q8HRS SQ Last administered on 09/23/18at 05:39; Start 09/22/18 at 22:00; Stop 09/23/18 at 13:06 ; Status DC Sodium Chloride (Normal Saline Flush) 3 ml QSHIFT PRN IV AFTER MEDS AND BLOOD DRAWS; Start 09/22/18 at 17:30 Sodium Chloride 1,000 ml @ 100 mls/hr Q10H IV Last administered on 09/25/18at 05:45; Start 09/22/18 at 18:00 Acetaminophen/ Hydrocodone Bitart (Lortab 5/325) 1 tab PRN Q4HRS PRN PO MILD PAIN Last administered on 09/24/18at 15:59; Start 09/22/18 at 17:30 Ondansetron HCl (Zofran) 4 mg PRN Q6HRS PRN IV NAUESA, 1ST CHOICE; Start at 17:30 Prochlorperazine Edisylate (Compazine) 5 mg PRN Q6HRS PRN IV N/V, 2nd Choice, MR X1; Start 09/22/18 at 17:30 Docusate Sodium (Colace) 100 mg BID PO Last administered on 09/24/18at 07:48; Start 09/22/18 at 21:00 Daptomycin 480 mg/ Sodium Chloride 50 ml @ 100 mls/hr Q24H IV Last administered on 09/24/18at 14:23; Start 09/23/18 at 14:00 Rivaroxaban (Xarelto) 20 mg DAILYWSUP PO Last administered on 09/24/18at 16:00; Start 09/23/18 at 17:00 Morphine Sulfate (Morphine Sulfate) 2 mg PRN Q2HR PRN IV PAIN; Start 09/24/18 at 11:45 Magnesium Sulfate 50 ml @ 25 mls/hr 1X ONCE IV ; Start 09/25/18 at 12:00; Stop 09/25/18 at 13:59; Status UNV Active Scripts Active Potassium Chloride 20 Meq Tab.er.prt 1 Tab PO DAILY Reported Lisinopril 20 Mg Tablet 10 Mg PO DAILY Xarelto (Rivaroxaban) 20 Mg Tablet 20 Mg PO DAILY Vitals/I & O Vital Sign - Last 24 Hours 09/24/18 09/24/18 09/24/18 09/24/18 15:00 15:59 16:59 19:00 Temp 97.9 98.5 97.9 98.5 Pulse 66 71 Resp 17 18 16 17 B/P (MAP) 131/68 (89) 129/70 (89) Pulse Ox 99 99 O2 Delivery Room Air Room Air Room Air Room Air 09/24/18 09/24/18 09/25/18 09/25/18 19:43 23:00 03:00 07:00 Temp 98.0 98.0 98.6 98.0 98.0 98.6 Pulse 66 71 76 Resp 17 17 18 B/P (MAP) 143/72 (95) 139/74 (95) 147/77 (100) Pulse Ox 100 100 100 O2 Delivery Room Air Room Air Room Air Room Air 09/25/18 09/25/18 08:00 11:00 Temp 98.1 98.1 Pulse 82 Resp 18 B/P (MAP) 134/71 (92) Pulse Ox 100 O2 Delivery Room Air Room Air O2 Flow Rate 2.0 Intake and Output 09/24/18 09/24/18 09/25/18 15:00 23:00 07:00 Intake Total 1400 ml Output Total 600 ml 950 ml 1525 ml Balance -600 ml -950 ml -125 ml Nutrition Consultation Dietary Evaluation: Recommendations by RD: Add supplement feedings Comments: per RN diet to adv to regular as tolerated: sending orange flavor lyndsey bid continue mvi and vit c per wound protocal Expected Outcomes/Goals: to meet > 75% est nutr needs- goal ongoing Malnutrition Findings: Food and Nutrition Intake (Mod: <75% est energy req 7days Weight Status: Appropriate DWAYNE TIDWELL MD Sep 25, 2018 12:05
--- NOTE | 2018-09-25 12:15 | PDOC ---
Infectious Disease Note Subjective: Subjective Pt says feels ok postop pain controlled no f/c/n/v abdo wounds cont to drain ROS: ROS Negative except for above. Vital Signs: Vital Signs Vital Signs Date Time Temp Pulse Resp B/P (MAP) Pulse Ox O2 Delivery O2 Flow Rate FiO2 09/25/18 11:00 98.1 82 18 134/71 (92) 100 Room Air 98.1 09/25/18 08:00 2.0 Physical Exam: PHYSICAL EXAM GENERAL: Alertxox3 male, lying in bed comfortably, cooperative, in no acute distress. HEENT: Normocephalic, atraumatic. Anicteric. Oral mucosa moist. No thrush. NECK: Supple. LUNGS: Clear bilaterally. HEART: S1, S2, tachycardia. No murmurs. ABDOMEN: Soft. Two midline wounds dressed, inguinal Lt and scrotal swelling dressing intact, dry induration and redness lt lateral abdomen present ,improving slowly, receding from previous marked lines EXTREMITIES: No edema. No cyanosis. PSYCHIATRIC: Appropriate mood and affect. Medications: Inpatient Meds: Current Medications Medications (Trade) Dose Ordered Sig/Joseph Start Time Stop Time Status Last Admin Dose Admin Acetaminophen (Tylenol) 650 mg PRN Q4HRS PRN 09/21/18 14:45 09/22/18 14:44 DC Acetaminophen/ Hydrocodone Bitart (Lortab 5/325) 1 tab PRN Q4HRS PRN 09/22/18 17:30 09/24/18 15:59 1 TAB Al Hydroxide/Mg Hydroxide (Mylanta Plus Xs) 30 ml PRN Q3HRS PRN 09/22/18 17:30 Ascorbic Acid (Vitamin C) 500 mg DAILY 09/22/18 12:00 09/25/18 08:10 500 MG Bupivacaine HCl (Sensorcaine Mpf 0.5%) 30 ml STK-MED ONCE 09/22/18 14:35 09/22/18 15:35 DC Bupivacaine HCl/ Epinephrine Bitart (Sensorcain-Mpf Epi 0.5%-1:227103) 30 ml STK-MED ONCE 09/22/18 14:34 09/22/18 15:35 DC Daptomycin 480 mg/ Sodium Chloride 50 ml @ 100 mls/hr Q24H 09/23/18 14:00 09/24/18 14:23 100 MLS/HR Dexamethasone Sodium Phosphate (Decadron) 20 mg STK-MED ONCE 09/22/18 16:00 09/22/18 16:01 DC Docusate Sodium (Colace) 100 mg BID 09/22/18 21:00 09/24/18 07:48 100 MG Fentanyl Citrate (Fentanyl 2ml Vial) 100 mcg STK-MED ONCE 09/22/18 16:30 09/22/18 16:31 DC Heparin Sodium (Porcine) (Heparin Sodium) 5,000 unit Q8HRS 09/22/18 22:00 09/23/18 13:06 DC 09/23/18 05:39 5,000 UNIT Info (Anti-Coagulation Monitoring By Pharmacy) 1 each PRN DAILY PRN 09/22/18 11:30 09/24/18 14:42 1 EACH Info (CONTRAST GIVEN -- Rx MONITORING) 1 each PRN DAILY PRN 09/22/18 07:15 09/24/18 07:14 DC Iohexol (Omnipaque 240 Mg/ml) 50 ml 1X ONCE 09/22/18 07:15 09/22/18 07:16 DC 09/22/18 07:15 50 ML Lidocaine HCl (Lidocaine Pf 2% Vial) 5 ml STK-MED ONCE 09/22/18 15:56 09/22/18 15:57 DC Linezolid/Dextrose 300 ml @ 300 mls/hr Q12HR 09/22/18 13:00 09/25/18 08:10 300 MLS/HR Lisinopril (Prinivil) 10 mg DAILY 09/22/18 09:00 09/22/18 13:06 DC 09/22/18 11:24 10 MG Magnesium Sulfate 50 ml @ 25 mls/hr 1X ONCE 09/25/18 12:00 09/25/18 13:59 Meropenem 500 mg/ Sodium Chloride 50 ml @ 100 mls/hr Q8HRS 09/22/18 14:00 09/25/18 05:36 100 MLS/HR Micafungin Sodium 100 mg/Dextrose 100 ml @ 100 mls/hr Q24H 09/22/18 13:00 09/25/18 11:54 100 MLS/HR Morphine Sulfate (Morphine Sulfate) 2 mg PRN Q2HR PRN 09/24/18 11:45 Multivitamins (Thera M Plus) 1 tab DAILY 09/22/18 12:00 09/25/18 08:10 1 TAB Naloxone HCl (Narcan) 0.1 mg PRN Q2MIN PRN 09/22/18 17:30 Ondansetron HCl (Zofran) 4 mg PRN Q6HRS PRN 09/22/18 17:30 Phenylephrine HCl (PHENYLEPHRINE in 0.9% NACL PF) 1 mg STK-MED ONCE 09/22/18 16:17 09/22/18 16:18 DC Piperacillin Sod/ Tazobactam Sod (Zosyn Per Pharmacy) 1 each PRN DAILY PRN 09/21/18 18:00 09/22/18 17:34 DC Piperacillin Sod/ Tazobactam Sod 3.375 gm/Sodium Chloride 50 ml @ 100 mls/hr Q6HRS 09/22/18 00:00 09/22/18 12:40 DC 09/22/18 05:48 100 MLS/HR Prochlorperazine Edisylate (Compazine) 5 mg PRN Q6HRS PRN 09/22/18 17:30 Propofol 20 ml @ As Directed STK-MED ONCE 09/22/18 15:56 09/22/18 15:57 DC Rivaroxaban (Xarelto) 20 mg DAILYWSUP 09/23/18 17:00 09/24/18 16:00 20 MG Sevoflurane (Ultane) 30 ml STK-MED ONCE 09/22/18 16:53 09/22/18 16:54 DC Sodium Chloride 1,000 ml @ 100 mls/hr Q10H 09/22/18 18:00 09/25/18 05:45 100 MLS/HR Sodium Chloride (Normal Saline Flush) 3 ml QSHIFT PRN 09/22/18 17:30 Vancomycin HCl (Vanco Per Pharmacy) 1 each PRN DAILY PRN 09/21/18 14:45 09/22/18 12:37 DC 09/21/18 18:36 1 EACH Vancomycin HCl (Vancomycin Trough Level) 1 each 1X ONCE 09/23/18 14:30 09/23/18 14:30 DC Vancomycin HCl 1.25 gm/Sodium Chloride 250 ml @ 166.667 mls/hr Q24H 09/22/18 15:00 09/22/18 15:00 DC Labs: Lab Laboratory Tests Test 09/25/18 05:27 White Blood Count 11.3 x10^3/uL (4.0-11.0) Red Blood Count 3.76 x10^6/uL (4.30-5.70) Hemoglobin 10.4 g/dL (13.0-17.5) Hematocrit 31.8 % (39.0-53.0) Mean Corpuscular Volume 84 fL (79-100) Mean Corpuscular Hemoglobin 28 pg (25-35) Mean Corpuscular Hemoglobin Concent 33 g/dL (31-37) Red Cell Distribution Width 18.9 % (11.5-14.5) Platelet Count 201 x10^3/uL (140-400) Neutrophils (%) (Auto) 92 % (31-73) Lymphocytes (%) (Auto) 5 % (24-48) Monocytes (%) (Auto) 3 % (0-9) Eosinophils (%) (Auto) 0 % (0-3) Basophils (%) (Auto) 0 % (0-3) Neutrophils # (Auto) 10.4 x10^3uL (1.8-7.7) Lymphocytes # (Auto) 0.6 x10^3/uL (1.0-4.8) Monocytes # (Auto) 0.3 x10^3/uL (0.0-1.1) Eosinophils # (Auto) 0.0 x10^3/uL (0.0-0.7) Basophils # (Auto) 0.0 x10^3/uL (0.0-0.2) Sodium Level 143 mmol/L (136-145) Potassium Level 3.6 mmol/L (3.5-5.1) Chloride Level 108 mmol/L (98-107) Carbon Dioxide Level 26 mmol/L (21-32) Anion Gap 9 (6-14) Blood Urea Nitrogen 30 mg/dL (8-26) Creatinine 1.0 mg/dL (0.7-1.3) Estimated GFR (Cockcroft-Gault) 75.0 Glucose Level 90 mg/dL (70-99) Calcium Level 8.1 mg/dL (8.5-10.1) Magnesium Level 1.5 mg/dL (1.8-2.4) Micro RUN DATE: 09/23/18 PAGE 1 RUN TIME: 1813 [facility] [address] [place] [address] Jose Haynes M.D., [employer] PATIENT: KELLY DONOVAN ACCT: [id number] LOC: [address] [place] [address] U : [id number] AGE/SX: 63/M ROOM: 6 REG : 09/21/[address]: DWAYNE TIDWELL MD : 1955 BED: 1 DIS : STATUS: ADM IN TLOC: SPEC #: [id number] MAGEN: 09/21/18 STATUS: COMP REQ #: [id number] RECD: 09/21/[address]: MARRY AUSTIN DO SOURCE: VOID ENTR: 09/21/[address]: MARCELO HENNESSY MD SPDESC: AMY GILLETTE MD, VENU S MD NO PCP TERMULO, CHERRIE Y MD ORDERED: URINE CULTURE Procedure Result URINE CULTURE Final Final report URINE CULTURE RES 1 Final No growth Performed at: [facility] [address], [place], [place] [id number] Rotating Equipment Engineer: ALEXANDRA Carrillo MD, Phone: [phone] RUN DATE: 09/22/18 RUN DATE: 09/22/18 PAGE 1 RUN TIME: 2107 [facility] [address] [place] [address] Jose Haynes M.D., [employer] PATIENT: KELLY DONOVAN ACCT: [id number] LOC: [address] [place] [address] U : [id number] AGE/SX: 63/M ROOM: 516 REG : 09/21/[address]: DWAYNE TIDWELL MD : 1955 BED: 1 DIS : STATUS: ADM IN TLOC: SPEC #: [id number] MAGEN: 09/21/18 STATUS: RES REQ #: [id number] RECD: 09/21/18 [facility] DR: DWAYNE TIDWELL MD SOURCE: PENIS ENTR: 09/21/[address] [facility] [address]: MARCELO HENNESSY MD [facility]: WOUND AMY GILLETTE MD, VENU S MD NO PCP ORDERED: ANAER/AEROB/GS Procedure Result ANAEROBIC-AEROBIC CULTURE PENDING ANAEROBIC RES 1 PENDING AEROBIC CULT PENDING AEROBIC RES 1 PENDING GRAM STAIN Final Final report GRAM STAIN RES 1 Final Comment No white blood cells seen. GRAM STAIN RES 2 Final Comment Many gram negative rods. GRAM STAIN RES 3 Final Comment Many gram positive cocci. GRAM STAIN RES 4 Final Comment CONTINUED ON NEXT PAGE RUN DATE: 09/22/18 PAGE 2 RUN TIME: 2107 [facility] [address] [place] [address] Jose Haynes M.D., [employer] SPEC: [id number] PATIENT: EKLLY DONOVAN [id number] ( Continued) Procedure Result GRAM STAIN RES 4 Final (continued) Few gram positive rods. Performed at: DA - [facility] [place] [address], [place], [place] [id number] Rotating Equipment Engineer: ALEXANDAR Carrillo MD, Phone: [phone] PAGE 1 RUN TIME: 2107 [facility] [address] [place] [address] Jose Haynes M.D., [employer] PATIENT: KELLY DONOVAN ACCT: [id number] LOC: [address] [place] [address] U : [id number] AGE/SX: 63/M ROOM: [facility] REG : 09/21/[address]: DWAYNE TIDWELL MD : 1955 BED: 1 DIS : STATUS: ADM IN TLOC: SPEC #: [id number] MAGEN: 09/21/18 STATUS: RES REQ #: [id number] RECD: 09/21/18 [facility] DR: DWAYNE TIDWELL MD SOURCE: ABDOMEN ENTR: 09/21/[address]: MARCELO HENNESSY MD SPDC: WOUND AMY GILLETTE MD, VENU S MD NO PCP ORDERED: LUZ MARINA/AERANABEL/MARIO Procedure Result ANAEROBIC-AEROBIC CULTURE PENDING ANAEROBIC RES 1 PENDING AEROBIC CULT PENDING AEROBIC RES 1 PENDING GRAM STAIN Final Final report GRAM STAIN RES 1 Final Comment No white blood cells seen. GRAM STAIN RES 2 Final Comment Moderate gram negative rods. GRAM STAIN RES 3 Final Comment Few gram positive cocci Performed at: - [facility] [place] [address], [place], [place] [id number] Rotating Equipment Engineer: ALEXANDRA Carrillo MD, Phone: [phone] Objective: Assessment: Severe sepsis source Lt inguinal,Scrotal cellulitis/abscess S/P I AND D 09/22 CULTS GNR, GPCS final ID and PRIMITIVO pending Leucocytosis source improving Abdominal hernia with infected mesh with purulence, needs removal but on hold per Dr Clarke at [facility] due to immunosuppression He will need f/u after discharge at [facility] on chemo Immunosuppression Plan: Plan of Care Daptomycin/micafungin/merrem zyvox for toxin binding f/u labs /cults GNR ,GPCs Cont local wound care Gen surgery following, Urology following d/w ARMINDA LEIVA MD Sep 25, 2018 12:15
[2018-09-25] MEDS: MORPHINE SULFATE 2 MG/ML VIAL. IV PRN (14:09)
[2018-09-25 15:00] VITALS: BP 132/77
[2018-09-25] MEDS: ANTI-COAG MONITOR BY PHARMACY. MC PRN (15:15)
--- NOTE | 2018-09-25 15:30 | NUR ---
Wound Care: Wound care follow up for wound care dressing change to scrotum. Pt dosed with pain medication by TANNER Iraheta prior to wound care arrival. Removed packing, cleansed and assessed wound, then rinsed wound with Dakin's cleansing solution. Scrotum wound s/p I&D 09/23, testicle exposed. Repacked with Iodoform 1" gauze packing and covered with ABD and mesh underwear. Ostomy bag changed per patient request, replaced with 2 piece bag. WC will follow up with patient on Friday to change scrotum dressing. Call light in reach and bed lowered. Patient refused to turn. Patient on a P-500 bed.
[2018-09-25] MEDS: DAPTOmycin (GENERIC) IVPB 480 MG in IV NORMAL SALINE 50ML 50 ML IV SCH (16:37)
[2018-09-25] MEDS: RIVAROXABAN 10 MG TABLET. PO SCH (16:37)
[2018-09-25 19:00] VITALS: BP 127/60
[2018-09-25 23:00] VITALS: BP 130/72
[2018-09-26 03:00] VITALS: BP 137/68
[2018-09-26] MEDS: IV 1/2 NORMAL SALINE 1,000 ML IV SCH ×3 (04:11→21:09)
[2018-09-26] MEDS: MEROPENEM 500 MG in IV NORMAL SALINE 50ML 50 ML IV SCH ×3 (05:53→23:41)
[2018-09-26 07:00] VITALS: BP 135/75
[2018-09-26] MEDS: MULTIVITAMIN with MINERAL TABLET. PO SCH (08:29)
[2018-09-26] MEDS: ASCORBIC ACID 500 MG TABLET PO SCH (08:29)
[2018-09-26] MEDS: DOCUSATE SODIUM 100 MG CAPSULE. PO SCH ×2 (08:29→20:17)
--- NOTE | 2018-09-26 09:25 | PDOC ---
PROGRESS NOTES Chief Complaint Chief Complaint Sepsis with elevated lactate 7, now normal Necrotizing fasciitis Scrotal edema status post IND OR 09/22/18 by urology Closed anion gap Renal failure, acute - improving Hyponatremia 134-very dry, IMPROVING SIGNIF Tachycardia 120s to 1300 sinus, RESLVED Leukocytosis improving BILateral scrotal swelling improving History recent UTI-a week ago Colon CA on chemotherapy KU status post colon Resection with indwelling colostomy Ventral hernia mesh wound, infected INdwelling colostomy bag right History of Present Illness History of Present Illness Looks and feels way better than on admission Now he is not super dry, IV fluids running, good urine output CReat now normalized HAd I and D by urology 09/22 because of significant scrotal swelling edema with necrotizing fasciitis on CAT scan ID also on board Patient came from home and usually can ambulate So far no ambulation here =- PT/OT ordered He has no complaints aside from he guards his abdominal area when I tried to inspect the wounds, some tenderness there On Zyvox and meropenem by ID ESR 128 WBC 11 with no fevers Urine culture negative Blood culture preliminary negative Some growth on that wound area gram-positive gram-negative on GS and would cx Plan: await PTOT - hesitant to go to rehab or SNU Continue IV antibiotics and local wound care Continue IV fluids currently running at 100 mL an hour Avoid nephrotoxins Follow blood cultures Inc pain med coverage Vitals Vitals Vital Signs Date Time Temp Pulse Resp B/P (MAP) Pulse Ox O2 Delivery O2 Flow Rate FiO2 09/26/18 07:00 97.6 89 18 135/75 (95) 99 Room Air 97.6 09/25/18 08:00 2.0 Physical Exam Physical Exam GENERAL: Alertxox3 male, lying in bed comfortably, cooperative, in no acute distress. HEENT: Normocephalic, atraumatic. Anicteric. Oral mucosa moist. No thrush. NECK: Supple. LUNGS: Clear bilaterally. HEART: S1, S2, tachycardia. No murmurs. ABDOMEN: Soft. Two midline wounds dressed, inguinal Lt and scrotal swelling dressing intact, dry induration and redness lt lateral abdomen present ,improving slowly, receding from previous marked lines EXTREMITIES: No edema. No cyanosis. PSYCHIATRIC: Appropriate mood and affect. General: Alert, Oriented X3, Cooperative, No acute distress Heart: Regular rate, Normal S1, Normal S2, Other (TACHYCARDIA) Lungs: Clear Abdomen: Soft, Other (abdominal wound dressed ) Extremities: Other (PICC line in; duration left scrotum with indwelling drain, left to heal by secondary intention) Skin: No breakdown Review of Systems Review of Systems A 14 point ROS was completed with the following noted as positive: Other systems reviewed and negative. \CONSTITUTIONAL: No fever or chills EYES: No recent changes SKIN: No rash or itching CARDIOVASCULAR: No chest pain, syncope, palpitations, or edema RESPIRATORY: No SOB or cough GASTROINTESTINAL: No nausea, vomiting or abdominal pain NEUROLOGICAL: No headaches or weakness ENDOCRINE: No cold or heat intolerance GENITOURINARY: No urgency or frequency of urination MUSCULOSKELETAL: No back pain or joint pain LYMPHATICS: No enlarged lymph nodes PSYCHIATRIC: No anxiety or depression Assessment and Plan Assessmemt and Plan Problems Medical Problems: (1) Sepsis Status: Acute Comment Review of Relevant I have reviewed the following items renetta (where applicable) has been applied. Labs Laboratory Tests Test 09/25/18 05:27 White Blood Count 11.3 x10^3/uL (4.0-11.0) Red Blood Count 3.76 x10^6/uL (4.30-5.70) Hemoglobin 10.4 g/dL (13.0-17.5) Hematocrit 31.8 % (39.0-53.0) Mean Corpuscular Volume 84 fL (79-100) Mean Corpuscular Hemoglobin 28 pg (25-35) Mean Corpuscular Hemoglobin Concent 33 g/dL (31-37) Red Cell Distribution Width 18.9 % (11.5-14.5) Platelet Count 201 x10^3/uL (140-400) Neutrophils (%) (Auto) 92 % (31-73) Lymphocytes (%) (Auto) 5 % (24-48) Monocytes (%) (Auto) 3 % (0-9) Eosinophils (%) (Auto) 0 % (0-3) Basophils (%) (Auto) 0 % (0-3) Neutrophils # (Auto) 10.4 x10^3uL (1.8-7.7) Lymphocytes # (Auto) 0.6 x10^3/uL (1.0-4.8) Monocytes # (Auto) 0.3 x10^3/uL (0.0-1.1) Eosinophils # (Auto) 0.0 x10^3/uL (0.0-0.7) Basophils # (Auto) 0.0 x10^3/uL (0.0-0.2) Sodium Level 143 mmol/L (136-145) Potassium Level 3.6 mmol/L (3.5-5.1) Chloride Level 108 mmol/L (98-107) Carbon Dioxide Level 26 mmol/L (21-32) Anion Gap 9 (6-14) Blood Urea Nitrogen 30 mg/dL (8-26) Creatinine 1.0 mg/dL (0.7-1.3) Estimated GFR (Cockcroft-Gault) 75.0 Glucose Level 90 mg/dL (70-99) Calcium Level 8.1 mg/dL (8.5-10.1) Magnesium Level 1.5 mg/dL (1.8-2.4) Microbiology 09/21/18 Blood Culture - Preliminary, Resulted NO GROWTH AFTER 4 DAYS 09/21/18 Anaerobic/Aerobic Culture - Preliminary, Resulted 09/21/18 Anaerobic Culture Result 1 (PRIMITIVO) - Preliminary, Resulted 09/21/18 Aerobic Culture - Final, Resulted 09/21/18 Aerobic Culture Result 1 (PRIMITIVO) - Final, Resulted 09/21/18 Gram Stain - Final, Resulted 09/21/18 Gram Stain Result 1 (PRIMITIVO) - Final, Resulted 09/21/18 Gram Stain Result 2 (PRIMITIVO) - Final, Resulted 09/21/18 Gram Stain Result 3 (PRIMITIVO) - Final, Resulted 09/21/18 Gram Stain Result 4 (PRIMITIVO) - Final, Resulted 09/21/18 Urine Culture - Final, Complete 09/21/18 Urine Culture Result 1 (PRIMITIVO) - Final, Complete 09/21/18 Anaerobic/Aerobic Culture - Preliminary, Resulted 09/21/18 Anaerobic Culture Result 1 (PRIMITIVO) - Preliminary, Resulted 09/21/18 Aerobic Culture - Final, Resulted 09/21/18 Aerobic Culture Result 1 (PRIMITIVO) - Final, Resulted 09/21/18 Gram Stain - Final, Resulted 09/21/18 Gram Stain Result 1 (PRIMITIVO) - Final, Resulted 09/21/18 Gram Stain Result 2 (PRIMITIVO) - Final, Resulted 09/21/18 Gram Stain Result 3 (PRIMITIVO) - Final, Resulted Medications Current Medications Sodium Chloride 1,000 ml @ 1,000 mls/hr 1X ONCE IV Last administered on at 13:56; Start 09/21/18 at 14:00; Stop 09/21/18 at 14:59; Status DC Piperacillin Sod/ Tazobactam Sod 3.375 gm/Sodium Chloride 50 ml @ 100 mls/hr 1X ONCE IV Last administered on 09/21/18at 14:59; Start 09/21/18 at 14:30; Stop 09/21/18 at 14:59; Status DC Sodium Chloride 1,000 ml @ 1,000 mls/hr 1X ONCE IV Last administered on at 14:55; Start 09/21/18 at 14:30; Stop 09/21/18 at 15:29; Status DC Ondansetron HCl (Zofran) 4 mg PRN Q8HRS PRN IV NAUSEA/VOMITING; Start 09/21/18 at 14:45; Stop 09/21/18 at 16:31; Status DC Sodium Chloride 1,000 ml @ 150 mls/hr Q6H40M IV Last administered on at 11:24; Start 09/21/18 at 14:40; Stop 09/22/18 at 14:39; Status DC Acetaminophen (Tylenol) 650 mg PRN Q4HRS PRN PO FEVER; Start 09/21/18 at 14:45 ; Stop 09/22/18 at 14:44; Status DC Vancomycin HCl 250 ml @ 250 mls/hr 1X ONCE IV ; Start 09/21/18 at 14:45; Stop 09/21/18 at 15:44; Status UNV Vancomycin HCl (Vanco Per Pharmacy) 1 each PRN DAILY PRN MC SEE COMMENTS Last administered on 09/21/18at 18:36; Start 09/21/18 at 14:45; Stop 09/22/18 at 12:37 ; Status DC Vancomycin HCl 1.25 gm/Sodium Chloride 250 ml @ 166.667 mls/hr 1X ONCE IV Last administered on 09/21/18at 15:34; Start 09/21/18 at 15:00; Stop 09/21/18 at 16:29; Status DC Ondansetron HCl (Zofran) 4 mg PRN Q6HRS PRN IV NAUSEA/VOMITING; Start 09/21/18 at 16:45; Stop 09/22/18 at 17:35; Status DC Piperacillin Sod/ Tazobactam Sod (Zosyn Per Pharmacy) 1 each PRN DAILY PRN MC SEE COMMENTS; Start 09/21/18 at 18:00; Stop 09/22/18 at 17:34; Status DC Lisinopril (Prinivil) 10 mg DAILY PO Last administered on 09/22/18at 11:24; Start 09/22/18 at 09:00; Stop 09/22/18 at 13:06; Status DC Piperacillin Sod/ Tazobactam Sod 3.375 gm/Sodium Chloride 50 ml @ 100 mls/hr Q6HRS IV Last administered on 09/22/18at 05:48; Start 09/22/18 at 00:00; Stop at 12:40; Status DC Heparin Sodium (Porcine) (Heparin Sodium) 5,000 unit Q8HRS SQ Last administered on 09/22/18at 05:54; Start 09/21/18 at 18:00; Stop 09/22/18 at 11:15 ; Status DC Vancomycin HCl 1.25 gm/Sodium Chloride 250 ml @ 166.667 mls/hr Q24H IV ; Start 09/22/18 at 15:00; Stop 09/22/18 at 15:00; Status DC Vancomycin HCl (Vancomycin Trough Level) 1 each 1X ONCE MC ; Start 09/23/18 at 14:30; Stop 09/23/18 at 14:30; Status DC Iohexol (Omnipaque 240 Mg/ml) 50 ml 1X ONCE PO Last administered on 09/22/18at 07:15; Start 09/22/18 at 07:15; Stop 09/22/18 at 07:16; Status DC Info (CONTRAST GIVEN -- Rx MONITORING) 1 each PRN DAILY PRN MC SEE COMMENTS; Start 09/22/18 at 07:15; Stop 09/24/18 at 07:14; Status DC Ascorbic Acid (Vitamin C) 500 mg DAILY PO Last administered on 09/26/18at 08:29 ; Start 09/22/18 at 12:00 Multivitamins (Thera M Plus) 1 tab DAILY PO Last administered on 09/26/18at 08: 29; Start 09/22/18 at 12:00 Rivaroxaban (Xarelto) 15 mg DAILYWSUP PO ; Start 09/22/18 at 17:00; Stop at 14:17; Status DC Info (Anti-Coagulation Monitoring By Pharmacy) 1 each PRN DAILY PRN MC SEE COMMENTS Last administered on 09/25/18at 15:15; Start 09/22/18 at 11:30 Micafungin Sodium 100 mg/Dextrose 100 ml @ 100 mls/hr Q24H IV Last administered on 09/25/18at 11:54; Start 09/22/18 at 13:00 Linezolid/Dextrose 300 ml @ 300 mls/hr Q12HR IV Last administered on at 08:28; Start 09/22/18 at 13:00 Daptomycin 480 mg/ Sodium Chloride 50 ml @ 100 mls/hr Q48H IV Last administered on 09/22/18at 15:48; Start 09/22/18 at 14:00; Stop 09/23/18 at 12:55 ; Status DC Meropenem 500 mg/ Sodium Chloride 50 ml @ 100 mls/hr Q8HRS IV Last administered on 09/26/18at 05:53; Start 09/22/18 at 14:00 Bupivacaine HCl/ Epinephrine Bitart (Sensorcain-Mpf Epi 0.5%-1:985205) 30 ml STK -MED ONCE .ROUTE ; Start 09/22/18 at 14:34; Stop 09/22/18 at 15:35; Status DC Bupivacaine HCl (Sensorcaine Mpf 0.5%) 30 ml STK-MED ONCE .ROUTE ; Start at 14:35; Stop 09/22/18 at 15:35; Status DC Propofol 20 ml @ As Directed STK-MED ONCE IV ; Start 09/22/18 at 15:56; Stop at 15:57; Status DC Lidocaine HCl (Lidocaine Pf 2% Vial) 5 ml STK-MED ONCE .ROUTE ; Start 09/22/18 at 15:56; Stop 09/22/18 at 15:57; Status DC Dexamethasone Sodium Phosphate (Decadron) 20 mg STK-MED ONCE .ROUTE ; Start at 16:00; Stop 09/22/18 at 16:01; Status DC Ondansetron HCl (Zofran) 4 mg STK-MED ONCE .ROUTE ; Start 09/22/18 at 16:00; Stop 09/22/18 at 16:01; Status DC Phenylephrine HCl (PHENYLEPHRINE in 0.9% NACL PF) 1 mg STK-MED ONCE IV ; Start 09/22/18 at 16:17; Stop 09/22/18 at 16:18; Status DC Fentanyl Citrate (Fentanyl 2ml Vial) 100 mcg STK-MED ONCE .ROUTE ; Start at 16:30; Stop 09/22/18 at 16:31; Status DC Sevoflurane (Ultane) 30 ml STK-MED ONCE IH ; Start 09/22/18 at 16:53; Stop 09/22 at 16:54; Status DC Al Hydroxide/Mg Hydroxide (Mylanta Plus Xs) 30 ml PRN Q3HRS PRN PO HEARTBURN / GAS; Start 09/22/18 at 17:30 Naloxone HCl (Narcan) 0.1 mg PRN Q2MIN PRN IV SEE COMMENTS; Start 09/22/18 at 17:30 Heparin Sodium (Porcine) (Heparin Sodium) 5,000 unit Q8HRS SQ Last administered on 09/23/18at 05:39; Start 09/22/18 at 22:00; Stop 09/23/18 at 13:06 ; Status DC Sodium Chloride (Normal Saline Flush) 3 ml QSHIFT PRN IV AFTER MEDS AND BLOOD DRAWS; Start 09/22/18 at 17:30 Sodium Chloride 1,000 ml @ 100 mls/hr Q10H IV Last administered on 09/26/18at 04:11; Start 09/22/18 at 18:00 Acetaminophen/ Hydrocodone Bitart (Lortab 5/325) 1 tab PRN Q4HRS PRN PO MILD PAIN Last administered on 09/24/18at 15:59; Start 09/22/18 at 17:30 Ondansetron HCl (Zofran) 4 mg PRN Q6HRS PRN IV NAUESA, 1ST CHOICE; Start at 17:30 Prochlorperazine Edisylate (Compazine) 5 mg PRN Q6HRS PRN IV N/V, 2nd Choice, MR X1; Start 09/22/18 at 17:30 Docusate Sodium (Colace) 100 mg BID PO Last administered on 09/26/18at 08:29; Start 09/22/18 at 21:00 Daptomycin 480 mg/ Sodium Chloride 50 ml @ 100 mls/hr Q24H IV Last administered on 09/25/18at 16:37; Start 09/23/18 at 14:00 Rivaroxaban (Xarelto) 20 mg DAILYWSUP PO Last administered on 09/25/18at 16:37; Start 09/23/18 at 17:00 Morphine Sulfate (Morphine Sulfate) 2 mg PRN Q2HR PRN IV PAIN Last administered on 09/25/18at 14:09; Start 09/24/18 at 11:45 Magnesium Sulfate 50 ml @ 25 mls/hr 1X ONCE IV Last administered on 09/25/18at 13:43; Start 09/25/18 at 12:00; Stop 09/25/18 at 13:59; Status DC Active Scripts Active Potassium Chloride 20 Meq Tab.er.prt 1 Tab PO DAILY Reported Lisinopril 20 Mg Tablet 10 Mg PO DAILY Xarelto (Rivaroxaban) 20 Mg Tablet 20 Mg PO DAILY Vitals/I & O Vital Sign - Last 24 Hours 09/25/18 09/25/18 09/25/18 09/25/18 11:00 15:00 19:00 20:12 Temp 98.1 97.9 98.0 98.1 97.9 98.0 Pulse 82 89 105 Resp 18 16 16 B/P (MAP) 134/71 (92) 132/77 (95) 127/60 (82) Pulse Ox 100 98 98 O2 Delivery Room Air Room Air Room Air Room Air 09/25/18 09/26/18 09/26/18 23:00 03:00 07:00 Temp 98.0 98.2 97.6 98.0 98.2 97.6 Pulse 86 79 89 Resp 16 16 18 B/P (MAP) 130/72 (91) 137/68 (91) 135/75 (95) Pulse Ox 99 99 99 O2 Delivery Room Air Room Air Room Air Intake and Output 09/25/18 09/25/18 09/26/18 15:00 23:00 07:00 Intake Total 500 ml 50 ml 0 ml Output Total 500 ml 650 ml 0 ml Balance 0 ml -600 ml 0 ml Nutrition Consultation Dietary Evaluation: Recommendations by RD: Add supplement feedings Comments: per RN diet to adv to regular as tolerated: sending orange flavor lyndsey bid continue mvi and vit c per wound protocal Expected Outcomes/Goals: to meet > 75% est nutr needs- goal ongoing Malnutrition Findings: Food and Nutrition Intake (Mod: <75% est energy req 7days Weight Status: Appropriate DWAYNE TIDWELL MD Sep 26, 2018 09:25
[2018-09-26 11:00] VITALS: BP 136/75
--- NOTE | 2018-09-26 12:07 | PDOC ---
Infectious Disease Note Subjective Subjective Pain controlled at the moment Next scrotal dressing change due Friday Denies F/C/S/N/V/D ROS ROS per HPI otherwise neg Vital Sign Vital Signs Vital Signs Date Time Temp Pulse Resp B/P (MAP) Pulse Ox O2 Delivery O2 Flow Rate FiO2 09/26/18 11:00 97.3 91 16 136/75 (95) 99 Room Air 97.3 09/26/18 08:00 2.0 Physical Exam PHYSICAL EXAM GENERAL: Propped up in bed, alert, NAD HEENT: Oral mucosa dry LUNGS: Clear bilaterally. HEART: S1, S2 ABDOMEN: Nondistended, soft, Ostomy. wound-bandaged : Saravia. Scrotum currently bandaged. EXTREMITIES: No edema. No cyanosis. SKIN: No rash PIVs Labs Micro 09/21/18 Blood Culture - Preliminary, Resulted NO GROWTH AFTER 4 DAYS URINE CULTURE RES 1 Final No growth Penis/scrotal wound AEROBIC RES 1 Final Yeast isolated. GRAM STAIN RES 2 Final Many gram negative rods. GRAM STAIN RES 3 Final Many gram positive cocci. GRAM STAIN RES 4 Final Few gram positive rods. Objective Assessment Severe sepsis source , improving Left inguinal, Scrotal cellulitis/abscess s/p I and D 09/22. CULTS GNR, GPC, GPR. growth of yeast so far. final ID and PRIMITIVO pending Leucocytosis source improving Abdominal hernia with infected mesh with purulence, needs removal but on hold per Dr Clarke at [facility] due to immunosuppression. GPC and GNR - He will need f/u after discharge at Colon cancer on chemo Immunosuppression Urinary retention, Saravia in place THAD, improved Plan Plan of Care Daptomycin, Merrem and micafungin - increase Meropenem Zyvox for toxin binding f/u labs /cults Next dressing change due Friday Gen surgery following, Urology following D/w micro D/w RN Attending Co-Sign Attending Co-Sign The patient was seen and interviewed as well as examined at the bedside. The chart was reviewed. The case was discussed. Agree with the plan of care. VILMA MOROCHO APRN Sep 26, 2018 12:07 NEW VALDEZ MD Sep 26, 2018 13:53
[2018-09-26] MEDS: MICAFUNGIN 100 MG in IV DEXTROSE 5% 100ML 100 ML IV SCH (12:26)
[2018-09-26] MEDS: DAPTOmycin (GENERIC) IVPB 480 MG in IV NORMAL SALINE 50ML 50 ML IV SCH (14:04)
[2018-09-26] MEDS: ANTI-COAG MONITOR BY PHARMACY. MC PRN (14:48)
[2018-09-26 15:00] VITALS: BP 120/73
[2018-09-26] MEDS: RIVAROXABAN 10 MG TABLET. PO SCH (16:44)
[2018-09-26 19:00] VITALS: BP 127/69
--- NOTE | 2018-09-26 21:09 | NUR ---
Schedule 2200 1/2 NS was not administered due to current bag still infusing.
[2018-09-26 23:02] VITALS: BP 125/71
[2018-09-27] VITALS (8 sets, daily range): BP systolic 125–157; BP diastolic 62–84
[2018-09-27] MEDS: IV 1/2 NORMAL SALINE 1,000 ML IV SCH ×2 (03:27→17:05)
[2018-09-27] MEDS: MEROPENEM 500 MG in IV NORMAL SALINE 50ML 50 ML IV SCH ×3 (05:44→17:25)
[2018-09-27] MEDS: DOCUSATE SODIUM 100 MG CAPSULE. PO SCH ×2 (08:18→20:13)
[2018-09-27] MEDS: ASCORBIC ACID 500 MG TABLET PO SCH (08:19)
[2018-09-27] MEDS: MULTIVITAMIN with MINERAL TABLET. PO SCH (08:19)
--- NOTE | 2018-09-27 08:21 | NUR ---
Patient refused stool softener this morning as colostomy with liquid brown output.
--- NOTE | 2018-09-27 10:16 | PDOC ---
PROGRESS NOTES Chief Complaint Chief Complaint Sepsis with elevated lactate 7, now normal Necrotizing fasciitis Scrotal edema status post IND OR 09/22/18 by urology Closed anion gap Renal failure, acute - improving Hyponatremia 134-very dry, IMPROVING SIGNIF Tachycardia 120s to 1300 sinus, RESLVED Leukocytosis improving BILateral scrotal swelling improving History recent UTI-a week ago Colon CA on chemotherapy KU status post colon Resection with indwelling colostomy Ventral hernia mesh wound, infected INdwelling colostomy bag right History of Present Illness History of Present Illness EH has signif improved since admit! Was very dry and dehydrated Came from home SNU recommended by PT, he will need some encouraging Wounds look great and dry! BIlateral scrotal edema, tightness, way better post I and D by urology and IV abx by ID along with wound care URine cx neg BC prelim neg PLAN: CPM Doing well Dw once on PO abx, might need SNU vs HH Dc prather soon? friday... (limited mobility, wounds etc) Vitals Vitals Vital Signs Date Time Temp Pulse Resp B/P (MAP) Pulse Ox O2 Delivery O2 Flow Rate FiO2 09/27/18 08:00 Nasal Cannula 2.0 09/27/18 07:00 97.9 87 17 157/84 (108) 96 97.9 Physical Exam Physical Exam GENERAL: Propped up in bed, alert, NAD HEENT: Oral mucosa dry LUNGS: Clear bilaterally. HEART: S1, S2 ABDOMEN: Nondistended, soft, Ostomy. wound-bandaged : Prather. Scrotum currently bandaged. EXTREMITIES: No edema. No cyanosis. SKIN: No rash PIVs General: Alert, Oriented X3, Cooperative, No acute distress Heart: Regular rate, Normal S1, Normal S2, Other (TACHYCARDIA) Lungs: Clear Abdomen: Soft, Other (abdominal wound dressed ) Extremities: Other (PICC line in; duration left scrotum with indwelling drain, left to heal by secondary intention) Skin: No breakdown Review of Systems Review of Systems asleep I did not awaken Assessment and Plan Assessmemt and Plan Problems Medical Problems: (1) Sepsis Status: Acute Comment Review of Relevant I have reviewed the following items renetta (where applicable) has been applied. Labs Microbiology 09/21/18 Blood Culture - Final, Complete NO GROWTH AFTER 5 DAYS 09/21/18 Anaerobic/Aerobic Culture - Preliminary, Resulted 09/21/18 Anaerobic Culture Result 1 (PRIMITIVO) - Preliminary, Resulted 09/21/18 Aerobic Culture - Final, Resulted 09/21/18 Aerobic Culture Result 1 (PRIMITIVO) - Final, Resulted 09/21/18 Gram Stain - Final, Resulted 09/21/18 Gram Stain Result 1 (PRIMITIVO) - Final, Resulted 09/21/18 Gram Stain Result 2 (PRIMITIVO) - Final, Resulted 09/21/18 Gram Stain Result 3 (PRIMITIVO) - Final, Resulted 09/21/18 Gram Stain Result 4 (PRIMITIVO) - Final, Resulted 09/21/18 Urine Culture - Final, Complete 09/21/18 Urine Culture Result 1 (PRIMITIVO) - Final, Complete 09/21/18 Anaerobic/Aerobic Culture - Preliminary, Resulted 09/21/18 Anaerobic Culture Result 1 (PRIMITIVO) - Preliminary, Resulted 09/21/18 Aerobic Culture - Final, Resulted 09/21/18 Aerobic Culture Result 1 (PRIMITIVO) - Final, Resulted 09/21/18 Gram Stain - Final, Resulted 09/21/18 Gram Stain Result 1 (PRIMITIVO) - Final, Resulted 09/21/18 Gram Stain Result 2 (PRIMITIVO) - Final, Resulted 09/21/18 Gram Stain Result 3 (PRIMITIVO) - Final, Resulted Medications Current Medications Sodium Chloride 1,000 ml @ 1,000 mls/hr 1X ONCE IV Last administered on at 13:56; Start 09/21/18 at 14:00; Stop 09/21/18 at 14:59; Status DC Piperacillin Sod/ Tazobactam Sod 3.375 gm/Sodium Chloride 50 ml @ 100 mls/hr 1X ONCE IV Last administered on 09/21/18at 14:59; Start 09/21/18 at 14:30; Stop 09/21/18 at 14:59; Status DC Sodium Chloride 1,000 ml @ 1,000 mls/hr 1X ONCE IV Last administered on at 14:55; Start 09/21/18 at 14:30; Stop 09/21/18 at 15:29; Status DC Ondansetron HCl (Zofran) 4 mg PRN Q8HRS PRN IV NAUSEA/VOMITING; Start 09/21/18 at 14:45; Stop 09/21/18 at 16:31; Status DC Sodium Chloride 1,000 ml @ 150 mls/hr Q6H40M IV Last administered on at 11:24; Start 09/21/18 at 14:40; Stop 09/22/18 at 14:39; Status DC Acetaminophen (Tylenol) 650 mg PRN Q4HRS PRN PO FEVER; Start 09/21/18 at 14:45 ; Stop 09/22/18 at 14:44; Status DC Vancomycin HCl 250 ml @ 250 mls/hr 1X ONCE IV ; Start 09/21/18 at 14:45; Stop 09/21/18 at 15:44; Status UNV Vancomycin HCl (Vanco Per Pharmacy) 1 each PRN DAILY PRN MC SEE COMMENTS Last administered on 09/21/18at 18:36; Start 09/21/18 at 14:45; Stop 09/22/18 at 12:37 ; Status DC Vancomycin HCl 1.25 gm/Sodium Chloride 250 ml @ 166.667 mls/hr 1X ONCE IV Last administered on 09/21/18at 15:34; Start 09/21/18 at 15:00; Stop 09/21/18 at 16:29; Status DC Ondansetron HCl (Zofran) 4 mg PRN Q6HRS PRN IV NAUSEA/VOMITING; Start 09/21/18 at 16:45; Stop 09/22/18 at 17:35; Status DC Piperacillin Sod/ Tazobactam Sod (Zosyn Per Pharmacy) 1 each PRN DAILY PRN MC SEE COMMENTS; Start 09/21/18 at 18:00; Stop 09/22/18 at 17:34; Status DC Lisinopril (Prinivil) 10 mg DAILY PO Last administered on 09/22/18at 11:24; Start 09/22/18 at 09:00; Stop 09/22/18 at 13:06; Status DC Piperacillin Sod/ Tazobactam Sod 3.375 gm/Sodium Chloride 50 ml @ 100 mls/hr Q6HRS IV Last administered on 09/22/18at 05:48; Start 09/22/18 at 00:00; Stop at 12:40; Status DC Heparin Sodium (Porcine) (Heparin Sodium) 5,000 unit Q8HRS SQ Last administered on 09/22/18at 05:54; Start 09/21/18 at 18:00; Stop 09/22/18 at 11:15 ; Status DC Vancomycin HCl 1.25 gm/Sodium Chloride 250 ml @ 166.667 mls/hr Q24H IV ; Start 09/22/18 at 15:00; Stop 09/22/18 at 15:00; Status DC Vancomycin HCl (Vancomycin Trough Level) 1 each 1X ONCE MC ; Start 09/23/18 at 14:30; Stop 09/23/18 at 14:30; Status DC Iohexol (Omnipaque 240 Mg/ml) 50 ml 1X ONCE PO Last administered on 09/22/18at 07:15; Start 09/22/18 at 07:15; Stop 09/22/18 at 07:16; Status DC Info (CONTRAST GIVEN -- Rx MONITORING) 1 each PRN DAILY PRN MC SEE COMMENTS; Start 09/22/18 at 07:15; Stop 09/24/18 at 07:14; Status DC Ascorbic Acid (Vitamin C) 500 mg DAILY PO Last administered on 09/27/18at 08:19 ; Start 09/22/18 at 12:00 Multivitamins (Thera M Plus) 1 tab DAILY PO Last administered on 09/27/18at 08: 19; Start 09/22/18 at 12:00 Rivaroxaban (Xarelto) 15 mg DAILYWSUP PO ; Start 09/22/18 at 17:00; Stop at 14:17; Status DC Info (Anti-Coagulation Monitoring By Pharmacy) 1 each PRN DAILY PRN MC SEE COMMENTS Last administered on 09/26/18at 14:48; Start 09/22/18 at 11:30 Micafungin Sodium 100 mg/Dextrose 100 ml @ 100 mls/hr Q24H IV Last administered on 09/26/18at 12:26; Start 09/22/18 at 13:00 Linezolid/Dextrose 300 ml @ 300 mls/hr Q12HR IV Last administered on at 08:19; Start 09/22/18 at 13:00 Daptomycin 480 mg/ Sodium Chloride 50 ml @ 100 mls/hr Q48H IV Last administered on 09/22/18at 15:48; Start 09/22/18 at 14:00; Stop 09/23/18 at 12:55 ; Status DC Meropenem 500 mg/ Sodium Chloride 50 ml @ 100 mls/hr Q8HRS IV Last administered on 09/26/18at 05:53; Start 09/22/18 at 14:00; Stop 09/26/18 at 13:54 ; Status DC Bupivacaine HCl/ Epinephrine Bitart (Sensorcain-Mpf Epi 0.5%-[id number]) 30 ml STK -MED ONCE .ROUTE ; Start 09/22/18 at 14:34; Stop 09/22/18 at 15:35; Status DC Bupivacaine HCl (Sensorcaine Mpf 0.5%) 30 ml STK-MED ONCE .ROUTE ; Start at 14:35; Stop 09/22/18 at 15:35; Status DC Propofol 20 ml @ As Directed STK-MED ONCE IV ; Start 09/22/18 at 15:56; Stop at 15:57; Status DC Lidocaine HCl (Lidocaine Pf 2% Vial) 5 ml STK-MED ONCE .ROUTE ; Start 09/22/18 at 15:56; Stop 09/22/18 at 15:57; Status DC Dexamethasone Sodium Phosphate (Decadron) 20 mg STK-MED ONCE .ROUTE ; Start at 16:00; Stop 09/22/18 at 16:01; Status DC Ondansetron HCl (Zofran) 4 mg STK-MED ONCE .ROUTE ; Start 09/22/18 at 16:00; Stop 09/22/18 at 16:01; Status DC Phenylephrine HCl (PHENYLEPHRINE in 0.9% NACL PF) 1 mg STK-MED ONCE IV ; Start 09/22/18 at 16:17; Stop 09/22/18 at 16:18; Status DC Fentanyl Citrate (Fentanyl 2ml Vial) 100 mcg STK-MED ONCE .ROUTE ; Start at 16:30; Stop 09/22/18 at 16:31; Status DC Sevoflurane (Ultane) 30 ml STK-MED ONCE IH ; Start 09/22/18 at 16:53; Stop 09/22 at 16:54; Status DC Al Hydroxide/Mg Hydroxide (Mylanta Plus Xs) 30 ml PRN Q3HRS PRN PO HEARTBURN / GAS; Start 09/22/18 at 17:30 Naloxone HCl (Narcan) 0.1 mg PRN Q2MIN PRN IV SEE COMMENTS; Start 09/22/18 at 17:30 Heparin Sodium (Porcine) (Heparin Sodium) 5,000 unit Q8HRS SQ Last administered on 09/23/18 05:39; Start 09/22/18 at 22:00; Stop 09/23/18 at 13:06 ; Status DC Sodium Chloride (Normal Saline Flush) 3 ml QSHIFT PRN IV AFTER MEDS AND BLOOD DRAWS; Start 09/22/18 at 17:30 Sodium Chloride 1,000 ml @ 100 mls/hr Q10H IV Last administered on 09/27/18 03:27; Start 09/22/18 at 18:00 Acetaminophen/ Hydrocodone Bitart (Lortab 5/325) 1 tab PRN Q4HRS PRN PO MILD PAIN Last administered on 09/24/18 15:59; Start 09/22/18 at 17:30 Ondansetron HCl (Zofran) 4 mg PRN Q6HRS PRN IV NAUESA, 1ST CHOICE; Start at 17:30 Prochlorperazine Edisylate (Compazine) 5 mg PRN Q6HRS PRN IV N/V, 2nd Choice, MR X1; Start 09/22/18 at 17:30 Docusate Sodium (Colace) 100 mg BID PO Last administered on 09/26/18 08:29; Start 09/22/18 at 21:00 Daptomycin 480 mg/ Sodium Chloride 50 ml @ 100 mls/hr Q24H IV Last administered on 09/26/18 14:04; Start 09/23/18 at 14:00 Rivaroxaban (Xarelto) 20 mg DAILYWSUP PO Last administered on 09/26/18 16:44; Start 09/23/18 at 17:00 Morphine Sulfate (Morphine Sulfate) 2 mg PRN Q2HR PRN IV PAIN Last administered on 09/25/18 14:09; Start 09/24/18 at 11:45 Magnesium Sulfate 50 ml @ 25 mls/hr 1X ONCE IV Last administered on 09/25/18 13:43; Start 09/25/18 at 12:00; Stop 09/25/18 at 13:59; Status DC Meropenem 500 mg/ Sodium Chloride 50 ml @ 100 mls/hr Q6HRS IV Last administered on 09/27/18at 05:44; Start 09/26/18 at 18:00 Active Scripts Active Potassium Chloride 20 Meq Tab.er.prt 1 Tab PO DAILY Reported Lisinopril 20 Mg Tablet 10 Mg PO DAILY Xarelto (Rivaroxaban) 20 Mg Tablet 20 Mg PO DAILY Vitals/I & O Vital Sign - Last 24 Hours 09/26/18 09/26/18 09/26/18 09/26/18 11:00 15:00 19:00 19:23 Temp 97.3 97.7 98.6 97.3 97.7 98.6 Pulse 91 101 97 Resp 16 18 20 B/P (MAP) 136/75 (95) 120/73 (89) 127/69 (88) Pulse Ox 99 98 98 O2 Delivery Room Air Room Air Nasal Cannula Nasal Cannula O2 Flow Rate 2.0 09/26/18 09/27/18 09/27/18 09/27/18 23:02 03:12 07:00 08:00 Temp 98.3 98.5 97.9 98.3 98.5 97.9 Pulse 81 84 87 Resp 17 B/P (MAP) 125/71 (89) 130/71 (90) 157/84 (108) Pulse Ox 99 100 96 O2 Delivery Room Air Room Air Room Air Nasal Cannula O2 Flow Rate 2.0 Intake and Output 09/26/18 09/26/18 09/27/18 14:59 22:59 06:59 Intake Total 870 ml 1650 ml 100 ml Output Total 1225 ml 700 ml 650 ml Balance -355 ml 950 ml -550 ml Nutrition Consultation Dietary Evaluation: Recommendations by RD: Add supplement feedings Comments: per RN diet to adv to regular as tolerated: sending orange flavor lyndsey bid continue mvi and vit c per wound protocal Expected Outcomes/Goals: to meet > 75% est nutr needs- goal ongoing Malnutrition Findings: Food and Nutrition Intake (Mod: <75% est energy req 7days Weight Status: Appropriate DWAYNE TIDWELL MD Sep 27, 2018 10:16
--- NOTE | 2018-09-27 11:54 | PDOC ---
Infectious Disease Note Subjective Subjective Feeling alright Pain controlled Appetite fair Next scrotal dressing change due Friday Denies F/C/S/N/V/D/aches ROS ROS per HPI otherwise neg Vital Sign Vital Signs Vital Signs Date Time Temp Pulse Resp B/P (MAP) Pulse Ox O2 Delivery O2 Flow Rate FiO2 09/27/18 11:42 97.8 82 125/62 (83) 99 Nasal Cannula 2.0 97.8 09/27/18 11:40 17 Physical Exam PHYSICAL EXAM GENERAL: Propped up in bed, alert, NAD HEENT: Oral mucosa dry LUNGS: Clear bilaterally. HEART: S1, S2 ABDOMEN: Nondistended, soft, Ostomy. wound-bandaged, just changed : Saravia. Scrotum currently bandaged. EXTREMITIES: No edema. No cyanosis. 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 GRAM STAIN RES 2 Final Many gram negative rods. GRAM STAIN RES 3 Final Many gram positive cocci. GRAM STAIN RES 4 Final Few gram positive rods. Objective Assessment Severe sepsis source , improving Left inguinal, Scrotal cellulitis/abscess s/p I and D 09/22. CULTS GNR, GPC, GPR. growth of yeast so far. final ID and PRIMITIVO pending Leucocytosis source improving Abdominal hernia with infected mesh with purulence, needs removal but on hold per Dr Clarke at [facility] due to immunosuppression. GPC and GNR - He will need f/u after discharge at Colon cancer on chemo Immunosuppression Urinary retention, Saravia in place THAD, improved Plan Plan of Care Daptomycin, Merrem and micafungin Zyvox for toxin binding am labs f/u cultures Next dressing change due Friday Gen surgery following, Urology following Bubble oxygen Attending Co-Sign Attending Co-Sign The patient was seen and interviewed as well as examined at the bedside. The chart was reviewed. The case was discussed. Agree with the plan of care. VILMA MOROCHO APRN Sep 27, 2018 11:54 NEW VALDEZ MD Sep 27, 2018 15:56
[2018-09-27] MEDS: MICAFUNGIN 100 MG in IV DEXTROSE 5% 100ML 100 ML IV SCH (12:44)
[2018-09-27 12:56] LABS: ALBUMIN 1.1 g/dL (3.4-5.0); ALBUMIN/GLOBULIN RATIO 0.3 (1.0-1.7); CALCIUM 7.5 mg/dL (8.5-10.1); CREATININE 0.9 mg/dL (0.7-1.3); GFR 84.7; POTASSIUM 3.4 mmol/L (3.5-5.1); TOTAL BILIRUBIN 0.3 mg/dL (0.2-1.0); TOTAL PROTEIN 5.3 g/dL (6.4-8.2)
[2018-09-27] MEDS: ANTI-COAG MONITOR BY PHARMACY. MC PRN (13:29)
[2018-09-27] MEDS: DAPTOmycin (GENERIC) IVPB 480 MG in IV NORMAL SALINE 50ML 50 ML IV SCH (14:35)
[2018-09-27] MEDS ORDERED: POTASSIUM CHLORIDE 20 MEQ TABLET.ER. PO ONE (15:15)
[2018-09-27] MEDS: RIVAROXABAN 10 MG TABLET. PO SCH (16:26)
[2018-09-28] MEDS: MEROPENEM 500 MG in IV NORMAL SALINE 50ML 50 ML IV SCH ×4 (00:33→18:04)
[2018-09-28 03:05] VITALS: BP 142/70
[2018-09-28] MEDS: IV 1/2 NORMAL SALINE 1,000 ML IV SCH ×2 (05:44→18:04)
[2018-09-28 05:46] LABS: BASO % 0 % (0-3); EOS % 0 % (0-3); HEMATOCRIT 27.5 % (39.0-53.0); HEMOGLOBIN 9.1 g/dL (13.0-17.5); LYMPH # 0.6 x10^3/uL (1.0-4.8); LYMPH % 7 % (24-48); MEAN CORPUSCULAR HEMOGLOBIN 28 pg (25-35); MEAN CORPUSCULAR HGB CONC 33 g/dL (31-37); MEAN CORPUSCULAR VOLUME 84 fL (79-100); MONO # 0.3 x10^3/uL (0.0-1.1); MONO % 4 % (0-9); NEUT # 7.7 x10^3uL (1.8-7.7); NEUT % 89 % (31-73); PLATELET COUNT 156 x10^3/uL (140-400); RED BLOOD COUNT 3.27 x10^6/uL (4.30-5.70); RED CELL DISTRIBUTION WIDTH 18.1 % (11.5-14.5); WHITE BLOOD COUNT 8.6 x10^3/uL (4.0-11.0)
[2018-09-28 07:00] VITALS: BP 134/71
[2018-09-28] MEDS: ASCORBIC ACID 500 MG TABLET PO SCH (08:36)
[2018-09-28] MEDS: MULTIVITAMIN with MINERAL TABLET. PO SCH (08:36)
[2018-09-28] MEDS: POTASSIUM CHLORIDE 20 MEQ TABLET.ER. PO SCH (08:37)
[2018-09-28] MEDS: DOCUSATE SODIUM 100 MG CAPSULE. PO SCH ×2 (08:38→20:19)
--- NOTE | 2018-09-28 09:12 | PDOC ---
Infectious Disease Note Subjective Subjective Feeling alright Pain controlled Appetite fair throat better with bubbling Denies F/C/S/N/V/D/aches ROS ROS o/w neg Vital Sign Vital Signs Vital Signs Date Time Temp Pulse Resp B/P (MAP) Pulse Ox O2 Delivery O2 Flow Rate FiO2 09/28/18 07:00 97.9 83 16 134/71 (92) 100 Nasal Cannula 2.0 97.9 Physical Exam PHYSICAL EXAM GENERAL: Propped up in bed, alert, NAD HEENT: Oral mucosa dry LUNGS: Clear bilaterally. HEART: S1, S2 ABDOMEN: Nondistended, soft, Ostomy. wound-bandaged : Saravia. Scrotum currently bandaged - less edema and erythema/drainage. 3 penroses EXTREMITIES: No edema. No cyanosis. 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 PIV Labs Lab Laboratory Tests Test 09/27/18 12:29 09/28/18 05:15 Sodium Level 139 mmol/L (136-145) Potassium Level 3.4 mmol/L (3.5-5.1) Chloride Level 103 mmol/L (98-107) Carbon Dioxide Level 28 mmol/L (21-32) Anion Gap 8 (6-14) Blood Urea Nitrogen 14 mg/dL (8-26) Creatinine 0.9 mg/dL (0.7-1.3) Estimated GFR (Cockcroft-Gault) 84.7 BUN/Creatinine Ratio 16 (6-20) Glucose Level 118 mg/dL (70-99) Calcium Level 7.5 mg/dL (8.5-10.1) Total Bilirubin 0.3 mg/dL (0.2-1.0) Aspartate Amino Transf (AST/SGOT) 31 U/L (15-37) Alanine Aminotransferase (ALT/SGPT) 25 U/L (16-63) Alkaline Phosphatase 99 U/L (46-116) Total Protein 5.3 g/dL (6.4-8.2) Albumin 1.1 g/dL (3.4-5.0) Albumin/Globulin Ratio 0.3 (1.0-1.7) White Blood Count 8.6 x10^3/uL (4.0-11.0) Red Blood Count 3.27 x10^6/uL (4.30-5.70) Hemoglobin 9.1 g/dL (13.0-17.5) Hematocrit 27.5 % (39.0-53.0) Mean Corpuscular Volume 84 fL (79-100) Mean Corpuscular Hemoglobin 28 pg (25-35) Mean Corpuscular Hemoglobin Concent 33 g/dL (31-37) Red Cell Distribution Width 18.1 % (11.5-14.5) Platelet Count 156 x10^3/uL (140-400) Neutrophils (%) (Auto) 89 % (31-73) Lymphocytes (%) (Auto) 7 % (24-48) Monocytes (%) (Auto) 4 % (0-9) Eosinophils (%) (Auto) 0 % (0-3) Basophils (%) (Auto) 0 % (0-3) Neutrophils # (Auto) 7.7 x10^3uL (1.8-7.7) Lymphocytes # (Auto) 0.6 x10^3/uL (1.0-4.8) Monocytes # (Auto) 0.3 x10^3/uL (0.0-1.1) Eosinophils # (Auto) 0.0 x10^3/uL (0.0-0.7) Basophils # (Auto) 0.0 x10^3/uL (0.0-0.2) Erythrocyte Sedimentation Rate 97 (0-15) Creatine Kinase 56 U/L (39-308) Micro Microbiology 09/21/18 Blood Culture - Final, Complete NO GROWTH AFTER 5 DAYS 09/21/18 Anaerobic/Aerobic Culture - Preliminary, Resulted 09/21/18 Anaerobic Culture Result 1 (PRIMITIVO) - Preliminary, Resulted 09/21/18 Aerobic Culture - Final, Resulted 09/21/18 Aerobic Culture Result 1 (PRIMITIVO) - Final, Resulted 09/21/18 Gram Stain - Final, Resulted 09/21/18 Gram Stain Result 1 (PRIMITIVO) - Final, Resulted 09/21/18 Gram Stain Result 2 (PRIMITIVO) - Final, Resulted 09/21/18 Gram Stain Result 3 (PRIMITIVO) - Final, Resulted 09/21/18 Gram Stain Result 4 (PRIMITIVO) - Final, Resulted 09/21/18 Urine Culture - Final, Complete 09/21/18 Urine Culture Result 1 (PRIMITIVO) - Final, Complete 09/21/18 Anaerobic/Aerobic Culture - Preliminary, Resulted 09/21/18 Anaerobic Culture Result 1 (PRIMITIVO) - Preliminary, Resulted 09/21/18 Aerobic Culture - Final, Resulted 09/21/18 Aerobic Culture Result 1 (PRIMITIVO) - Final, Resulted 09/21/18 Gram Stain - Final, Resulted 09/21/18 Gram Stain Result 1 (PRIMITIVO) - Final, Resulted 09/21/18 Gram Stain Result 2 (PRIMITIVO) - Final, Resulted 09/21/18 Gram Stain Result 3 (PRIMITIVO) - Final, Resulted Objective Assessment Severe sepsis source , improving Left inguinal, Scrotal cellulitis/abscess s/p I and D 09/22. CULTS GNR, GPC, GPR. growth of yeast so far. final ID and PRIMITIVO pending still Leucocytosis source improving Abdominal hernia with infected mesh with purulence, needs removal but on hold per Dr Clarke at [facility] due to immunosuppression. GPC and GNR - He will need f/u after discharge at Colon cancer on chemo Immunosuppression Urinary retention, Saravia in place THAD, improved Plan Plan of Care D/c Daptomycin Cont Merrem and micafungin Zyvox for toxin binding to po am labs f/u cultures so far neg Gen surgery following, Urology following NEW VALDEZ MD Sep 28, 2018 09:11
--- NOTE | 2018-09-28 09:39 | PDOC ---
SUBJECTIVE Subjective Pain is slowly improving. OBJECTIVE Objective Physical Exam: General appearance: Alert and Oriented Head: Normocephalic, without obvious abnormality Eyes: conjunctivae/corneas clear. PERRL, EOM's intact. Fundi benign Lungs: Regular respirations, non labored breathing Abdomen: Colostomy bag in place soft, non-tender. No masses, no organomegaly Pelvic: [address] draining sero-sanguinous fluid , scrotal swelling is significantly improved. + Saravia catheter draining clear yellow urine. Vital Signs Vital Signs Date Time Temp Pulse Resp B/P (MAP) Pulse Ox O2 Delivery O2 Flow Rate FiO2 09/28/18 07:00 97.9 83 16 134/71 (92) 100 Nasal Cannula 2.0 97.9 09/28/18 03:05 97.9 85 20 142/70 (94) 99 Nasal Cannula 97.9 09/27/18 23:00 98.5 83 20 138/69 (92) 98 Nasal Cannula 98.5 09/27/18 20:00 Nasal Cannula 2.0 09/27/18 19:00 97.8 95 20 125/69 (87) 98 Nasal Cannula 97.8 09/27/18 15:00 98.5 102 18 139/67 (91) 98 Nasal Cannula 2.0 98.5 09/27/18 11:42 97.8 82 125/62 (83) 99 Nasal Cannula 2.0 97.8 09/27/18 11:40 97.8 82 17 125/62 (83) 99 Nasal Cannula 2.0 97.8 09/27/18 11:00 97.9 87 17 157/84 (108) 96 Room Air 97.9 I & O Intake and Output 09/28/18 06:59 Intake Total 1910 ml Output Total 2875 ml Balance -965 ml Intake Oral 360 ml IV Total 1550 ml Output Urine Total 2300 ml Stool Total 275 ml Urine/Stool Mix 300 ml PHYSICAL EXAM Physical Exam Physical Exam: General appearance: Alert and Oriented Head: Normocephalic, without obvious abnormality Eyes: conjunctivae/corneas clear. PERRL, EOM's intact. Fundi benign Lungs: Regular respirations, non labored breathing Abdomen: Colostomy bag in place soft, non-tender. No masses, no organomegaly Pelvic: [address] draining sero-sanguinous fluid , scrotal swelling is significantly improved. + Saravia catheter draining clear yellow urine. ASSESSMENT/PLAN Assessment/Plan ID has him on Daptomycin, Merrem and micafungin Zyvox for toxin binding W/C nurses may change dressing today Dr. Mcnamara wants to change dressing tomorrow. Nursing to maintain Saravia catheter for now Discussed above with attending RN. Problems: (1) Sepsis COMMENT Lab Laboratory Tests Test 09/27/18 12:29 09/28/18 05:15 Sodium Level 139 mmol/L (136-145) Potassium Level 3.4 mmol/L (3.5-5.1) Chloride Level 103 mmol/L (98-107) Carbon Dioxide Level 28 mmol/L (21-32) Anion Gap 8 (6-14) Blood Urea Nitrogen 14 mg/dL (8-26) Creatinine 0.9 mg/dL (0.7-1.3) Estimated GFR (Cockcroft-Gault) 84.7 BUN/Creatinine Ratio 16 (6-20) Glucose Level 118 mg/dL (70-99) Calcium Level 7.5 mg/dL (8.5-10.1) Total Bilirubin 0.3 mg/dL (0.2-1.0) Aspartate Amino Transf (AST/SGOT) 31 U/L (15-37) Alanine Aminotransferase (ALT/SGPT) 25 U/L (16-63) Alkaline Phosphatase 99 U/L (46-116) Total Protein 5.3 g/dL (6.4-8.2) Albumin 1.1 g/dL (3.4-5.0) Albumin/Globulin Ratio 0.3 (1.0-1.7) White Blood Count 8.6 x10^3/uL (4.0-11.0) Red Blood Count 3.27 x10^6/uL (4.30-5.70) Hemoglobin 9.1 g/dL (13.0-17.5) Hematocrit 27.5 % (39.0-53.0) Mean Corpuscular Volume 84 fL (79-100) Mean Corpuscular Hemoglobin 28 pg (25-35) Mean Corpuscular Hemoglobin Concent 33 g/dL (31-37) Red Cell Distribution Width 18.1 % (11.5-14.5) Platelet Count 156 x10^3/uL (140-400) Neutrophils (%) (Auto) 89 % (31-73) Lymphocytes (%) (Auto) 7 % (24-48) Monocytes (%) (Auto) 4 % (0-9) Eosinophils (%) (Auto) 0 % (0-3) Basophils (%) (Auto) 0 % (0-3) Neutrophils # (Auto) 7.7 x10^3uL (1.8-7.7) Lymphocytes # (Auto) 0.6 x10^3/uL (1.0-4.8) Monocytes # (Auto) 0.3 x10^3/uL (0.0-1.1) Eosinophils # (Auto) 0.0 x10^3/uL (0.0-0.7) Basophils # (Auto) 0.0 x10^3/uL (0.0-0.2) Erythrocyte Sedimentation Rate 97 (0-15) Creatine Kinase 56 U/L (39-308) Nutrition Consultation Dietary Evaluation: Recommendations by RD: Add supplement feedings Comments: per RN diet to adv to regular as tolerated: sending orange flavor lyndsey bid continue mvi and vit c per wound protocal Expected Outcomes/Goals: to meet > 75% est nutr needs- goal ongoing Malnutrition Findings: Food and Nutrition Intake (Mod: <75% est energy req 7days Weight Status: Appropriate Problem Qualifiers (1) Sepsis: Sepsis type: sepsis due to unspecified organism Qualified Codes: A41.9 - Sepsis, unspecified organism JOSE COLON APRN Sep 28, 2018 09:39
--- NOTE | 2018-09-28 09:54 | NUR ---
SW following pt. PT/OT recommends SNU. Pt is also on Iv abx at this time. Discussed with pt and pt agreeable with being screened at [facility]. SW phoned and faxed referral to [facility]. Pt admission and acceptance pending. Discussed with RN and physician. Will continue to follow.
--- NOTE | 2018-09-28 10:35 | PDOC ---
PROGRESS NOTES Subjective Subjective The patient was resting comfortably in bed with no complaints. He denied fevers , chills, N/V, CP, SOB, diarrhea. He denies pain at the wound site. Objective Objective Vital Signs Date Time Temp Pulse Resp B/P (MAP) Pulse Ox O2 Delivery O2 Flow Rate FiO2 09/28/18 07:00 97.9 83 16 134/71 (92) 100 Nasal Cannula 2.0 97.9 Intake and Output 09/28/18 07:00 Intake Total 1910 ml Output Total 2725 ml Balance -815 ml Intake Oral 360 ml IV Total 1550 ml Output Urine Total 2300 ml Stool Total 125 ml Urine/Stool Mix 300 ml Physical Exam Abdomen: Soft, No tenderness, No masses Heart: Regular rate, Normal S1, Normal S2, No murmurs Extremities: No edema, Normal pulses, No tenderness/swelling General: Alert, Oriented X3, Cooperative, No acute distress HEENT: Atraumatic, EOMI, Mucous membr. moist/pink Lungs: Clear to auscultation, Normal air movement MUSCULOSKELETAL: No joint tenderness, No deformity, No swelling Neck: Supple, No JVD, No thyromegaly Neuro: Normal speech, Normal tone, Sensation intact Psych/Mental Status: Mental status NL, Mood NL Skin: No rashes, No breakdown, Other (Wound site is clean, dry, and intact) Assessment Assessment Problems Medical Problems: (1) Sepsis Status: Acute Sepsis with elevated lactate 7, now normal Necrotizing fasciitis- follow up cultures so far normal Scrotal edema status post IND OR 09/22/18 by urology Closed anion gap Renal failure, acute - improving Leukocytosis improving BILateral scrotal swelling improving History recent UTI-a week ago Colon CA on chemotherapy KU status post colon Resection with indwelling colostomy Ventral hernia mesh wound, infected Indwelling colostomy bag right Plan Plan of Care Wound care Continue linezolid, daptomycin, and meropenem Continue prather catheter Follow up labs- monitor K level Continue 2L fluids PT/OT Continue home meds 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 Labs Laboratory Tests Test 09/27/18 12:29 09/28/18 05:15 Sodium Level 139 mmol/L (136-145) Potassium Level 3.4 mmol/L (3.5-5.1) Chloride Level 103 mmol/L (98-107) Carbon Dioxide Level 28 mmol/L (21-32) Anion Gap 8 (6-14) Blood Urea Nitrogen 14 mg/dL (8-26) Creatinine 0.9 mg/dL (0.7-1.3) Estimated GFR (Cockcroft-Gault) 84.7 BUN/Creatinine Ratio 16 (6-20) Glucose Level 118 mg/dL (70-99) Calcium Level 7.5 mg/dL (8.5-10.1) Total Bilirubin 0.3 mg/dL (0.2-1.0) Aspartate Amino Transf (AST/SGOT) 31 U/L (15-37) Alanine Aminotransferase (ALT/SGPT) 25 U/L (16-63) Alkaline Phosphatase 99 U/L (46-116) Total Protein 5.3 g/dL (6.4-8.2) Albumin 1.1 g/dL (3.4-5.0) Albumin/Globulin Ratio 0.3 (1.0-1.7) White Blood Count 8.6 x10^3/uL (4.0-11.0) Red Blood Count 3.27 x10^6/uL (4.30-5.70) Hemoglobin 9.1 g/dL (13.0-17.5) Hematocrit 27.5 % (39.0-53.0) Mean Corpuscular Volume 84 fL (79-100) Mean Corpuscular Hemoglobin 28 pg (25-35) Mean Corpuscular Hemoglobin Concent 33 g/dL (31-37) Red Cell Distribution Width 18.1 % (11.5-14.5) Platelet Count 156 x10^3/uL (140-400) Neutrophils (%) (Auto) 89 % (31-73) Lymphocytes (%) (Auto) 7 % (24-48) Monocytes (%) (Auto) 4 % (0-9) Eosinophils (%) (Auto) 0 % (0-3) Basophils (%) (Auto) 0 % (0-3) Neutrophils # (Auto) 7.7 x10^3uL (1.8-7.7) Lymphocytes # (Auto) 0.6 x10^3/uL (1.0-4.8) Monocytes # (Auto) 0.3 x10^3/uL (0.0-1.1) Eosinophils # (Auto) 0.0 x10^3/uL (0.0-0.7) Basophils # (Auto) 0.0 x10^3/uL (0.0-0.2) Erythrocyte Sedimentation Rate 97 (0-15) Creatine Kinase 56 U/L (39-308) Laboratory Tests Test 09/27/18 12:29 09/28/18 05:15 Sodium Level 139 mmol/L (136-145) Potassium Level 3.4 mmol/L (3.5-5.1) Chloride Level 103 mmol/L (98-107) Carbon Dioxide Level 28 mmol/L (21-32) Anion Gap 8 (6-14) Blood Urea Nitrogen 14 mg/dL (8-26) Creatinine 0.9 mg/dL (0.7-1.3) Estimated GFR (Cockcroft-Gault) 84.7 BUN/Creatinine Ratio 16 (6-20) Glucose Level 118 mg/dL (70-99) Calcium Level 7.5 mg/dL (8.5-10.1) Total Bilirubin 0.3 mg/dL (0.2-1.0) Aspartate Amino Transf (AST/SGOT) 31 U/L (15-37) Alanine Aminotransferase (ALT/SGPT) 25 U/L (16-63) Alkaline Phosphatase 99 U/L (46-116) Total Protein 5.3 g/dL (6.4-8.2) Albumin 1.1 g/dL (3.4-5.0) Albumin/Globulin Ratio 0.3 (1.0-1.7) White Blood Count 8.6 x10^3/uL (4.0-11.0) Red Blood Count 3.27 x10^6/uL (4.30-5.70) Hemoglobin 9.1 g/dL (13.0-17.5) Hematocrit 27.5 % (39.0-53.0) Mean Corpuscular Volume 84 fL (79-100) Mean Corpuscular Hemoglobin 28 pg (25-35) Mean Corpuscular Hemoglobin Concent 33 g/dL (31-37) Red Cell Distribution Width 18.1 % (11.5-14.5) Platelet Count 156 x10^3/uL (140-400) Neutrophils (%) (Auto) 89 % (31-73) Lymphocytes (%) (Auto) 7 % (24-48) Monocytes (%) (Auto) 4 % (0-9) Eosinophils (%) (Auto) 0 % (0-3) Basophils (%) (Auto) 0 % (0-3) Neutrophils # (Auto) 7.7 x10^3uL (1.8-7.7) Lymphocytes # (Auto) 0.6 x10^3/uL (1.0-4.8) Monocytes # (Auto) 0.3 x10^3/uL (0.0-1.1) Eosinophils # (Auto) 0.0 x10^3/uL (0.0-0.7) Basophils # (Auto) 0.0 x10^3/uL (0.0-0.2) Erythrocyte Sedimentation Rate 97 (0-15) Creatine Kinase 56 U/L (39-308) Microbiology 09/21/18 Blood Culture - Final, Complete NO GROWTH AFTER 5 DAYS 09/21/18 Anaerobic/Aerobic Culture - Preliminary, Resulted 09/21/18 Anaerobic Culture Result 1 (PRIMITIVO) - Preliminary, Resulted 09/21/18 Aerobic Culture - Final, Resulted 09/21/18 Aerobic Culture Result 1 (PRIMITIVO) - Final, Resulted 09/21/18 Gram Stain - Final, Resulted 09/21/18 Gram Stain Result 1 (PRIMITIVO) - Final, Resulted 09/21/18 Gram Stain Result 2 (PRIMITIVO) - Final, Resulted 09/21/18 Gram Stain Result 3 (PRIMITIVO) - Final, Resulted 09/21/18 Gram Stain Result 4 (PRIMITIVO) - Final, Resulted 09/21/18 Urine Culture - Final, Complete 09/21/18 Urine Culture Result 1 (PRIMITIVO) - Final, Complete 09/21/18 Anaerobic/Aerobic Culture - Preliminary, Resulted 09/21/18 Anaerobic Culture Result 1 (PRIMITIVO) - Preliminary, Resulted 09/21/18 Aerobic Culture - Final, Resulted 09/21/18 Aerobic Culture Result 1 (PRIMITIVO) - Final, Resulted 09/21/18 Gram Stain - Final, Resulted 09/21/18 Gram Stain Result 1 (PRIMITIVO) - Final, Resulted 09/21/18 Gram Stain Result 2 (PRIMITIVO) - Final, Resulted 09/21/18 Gram Stain Result 3 (PRIMITIVO) - Final, Resulted Medications Current Medications Sodium Chloride 1,000 ml @ 1,000 mls/hr 1X ONCE IV Last administered on at 13:56; Start 09/21/18 at 14:00; Stop 09/21/18 at 14:59; Status DC Piperacillin Sod/ Tazobactam Sod 3.375 gm/Sodium Chloride 50 ml @ 100 mls/hr 1X ONCE IV Last administered on 09/21/18at 14:59; Start 09/21/18 at 14:30; Stop 09/21/18 at 14:59; Status DC Sodium Chloride 1,000 ml @ 1,000 mls/hr 1X ONCE IV Last administered on at 14:55; Start 09/21/18 at 14:30; Stop 09/21/18 at 15:29; Status DC Ondansetron HCl (Zofran) 4 mg PRN Q8HRS PRN IV NAUSEA/VOMITING; Start 09/21/18 at 14:45; Stop 09/21/18 at 16:31; Status DC Sodium Chloride 1,000 ml @ 150 mls/hr Q6H40M IV Last administered on at 11:24; Start 09/21/18 at 14:40; Stop 09/22/18 at 14:39; Status DC Acetaminophen (Tylenol) 650 mg PRN Q4HRS PRN PO FEVER; Start 09/21/18 at 14:45 ; Stop 09/22/18 at 14:44; Status DC Vancomycin HCl 250 ml @ 250 mls/hr 1X ONCE IV ; Start 09/21/18 at 14:45; Stop 09/21/18 at 15:44; Status UNV Vancomycin HCl (Vanco Per Pharmacy) 1 each PRN DAILY PRN MC SEE COMMENTS Last administered on 09/21/18at 18:36; Start 09/21/18 at 14:45; Stop 09/22/18 at 12:37 ; Status DC Vancomycin HCl 1.25 gm/Sodium Chloride 250 ml @ 166.667 mls/hr 1X ONCE IV Last administered on 09/21/18at 15:34; Start 09/21/18 at 15:00; Stop 09/21/18 at 16:29; Status DC Ondansetron HCl (Zofran) 4 mg PRN Q6HRS PRN IV NAUSEA/VOMITING; Start 09/21/18 at 16:45; Stop 09/22/18 at 17:35; Status DC Piperacillin Sod/ Tazobactam Sod (Zosyn Per Pharmacy) 1 each PRN DAILY PRN MC SEE COMMENTS; Start 09/21/18 at 18:00; Stop 09/22/18 at 17:34; Status DC Lisinopril (Prinivil) 10 mg DAILY PO Last administered on 09/22/18at 11:24; Start 09/22/18 at 09:00; Stop 09/22/18 at 13:06; Status DC Piperacillin Sod/ Tazobactam Sod 3.375 gm/Sodium Chloride 50 ml @ 100 mls/hr Q6HRS IV Last administered on 09/22/18at 05:48; Start 09/22/18 at 00:00; Stop at 12:40; Status DC Heparin Sodium (Porcine) (Heparin Sodium) 5,000 unit Q8HRS SQ Last administered on 09/22/18at 05:54; Start 09/21/18 at 18:00; Stop 09/22/18 at 11:15 ; Status DC Vancomycin HCl 1.25 gm/Sodium Chloride 250 ml @ 166.667 mls/hr Q24H IV ; Start 09/22/18 at 15:00; Stop 09/22/18 at 15:00; Status DC Vancomycin HCl (Vancomycin Trough Level) 1 each 1X ONCE MC ; Start 09/23/18 at 14:30; Stop 09/23/18 at 14:30; Status DC Iohexol (Omnipaque 240 Mg/ml) 50 ml 1X ONCE PO Last administered on 09/22/18at 07:15; Start 09/22/18 at 07:15; Stop 09/22/18 at 07:16; Status DC Info (CONTRAST GIVEN -- Rx MONITORING) 1 each PRN DAILY PRN MC SEE COMMENTS; Start 09/22/18 at 07:15; Stop 09/24/18 at 07:14; Status DC Ascorbic Acid (Vitamin C) 500 mg DAILY PO Last administered on 09/28/18at 08:36; Start 09/22/18 at 12:00 Multivitamins (Thera M Plus) 1 tab DAILY PO Last administered on 09/28/18at 08:36 ; Start 09/22/18 at 12:00 Rivaroxaban (Xarelto) 15 mg DAILYWSUP PO ; Start 09/22/18 at 17:00; Stop at 14:17; Status DC Info (Anti-Coagulation Monitoring By Pharmacy) 1 each PRN DAILY PRN MC SEE COMMENTS Last administered on 09/27/18at 13:29; Start 09/22/18 at 11:30 Micafungin Sodium 100 mg/Dextrose 100 ml @ 100 mls/hr Q24H IV Last administered on 09/27/18at 12:44; Start 09/22/18 at 13:00 Linezolid/Dextrose 300 ml @ 300 mls/hr Q12HR IV Last administered on 09/28/18at 08:37; Start 09/22/18 at 13:00; Stop 09/28/18 at 10:16; Status DC Daptomycin 480 mg/ Sodium Chloride 50 ml @ 100 mls/hr Q48H IV Last administered on 09/22/18at 15:48; Start 09/22/18 at 14:00; Stop 09/23/18 at 12:55 ; Status DC Meropenem 500 mg/ Sodium Chloride 50 ml @ 100 mls/hr Q8HRS IV Last administered on 09/26/18at 05:53; Start 09/22/18 at 14:00; Stop 09/26/18 at 13:54 ; Status DC Bupivacaine HCl/ Epinephrine Bitart (Sensorcain-Mpf Epi 0.5%-1:[id number]) 30 ml STK -MED ONCE .ROUTE ; Start 09/22/18 at 14:34; Stop 09/22/18 at 15:35; Status DC Bupivacaine HCl (Sensorcaine Mpf 0.5%) 30 ml STK-MED ONCE .ROUTE ; Start at 14:35; Stop 09/22/18 at 15:35; Status DC Propofol 20 ml @ As Directed STK-MED ONCE IV ; Start 09/22/18 at 15:56; Stop at 15:57; Status DC Lidocaine HCl (Lidocaine Pf 2% Vial) 5 ml STK-MED ONCE .ROUTE ; Start 09/22/18 at 15:56; Stop 09/22/18 at 15:57; Status DC Dexamethasone Sodium Phosphate (Decadron) 20 mg STK-MED ONCE .ROUTE ; Start at 16:00; Stop 09/22/18 at 16:01; Status DC Ondansetron HCl (Zofran) 4 mg STK-MED ONCE .ROUTE ; Start 09/22/18 at 16:00; Stop 09/22/18 at 16:01; Status DC Phenylephrine HCl (PHENYLEPHRINE in 0.9% NACL PF) 1 mg STK-MED ONCE IV ; Start 09/22/18 at 16:17; Stop 09/22/18 at 16:18; Status DC Fentanyl Citrate (Fentanyl 2ml Vial) 100 mcg STK-MED ONCE .ROUTE ; Start at 16:30; Stop 09/22/18 at 16:31; Status DC Sevoflurane (Ultane) 30 ml STK-MED ONCE IH ; Start 09/22/18 at 16:53; Stop 09/22 at 16:54; Status DC Al Hydroxide/Mg Hydroxide (Mylanta Plus Xs) 30 ml PRN Q3HRS PRN PO HEARTBURN / GAS; Start 09/22/18 at 17:30 Naloxone HCl (Narcan) 0.1 mg PRN Q2MIN PRN IV SEE COMMENTS; Start 09/22/18 at 17:30 Heparin Sodium (Porcine) (Heparin Sodium) 5,000 unit Q8HRS SQ Last administered on 09/23/18at 05:39; Start 09/22/18 at 22:00; Stop 09/23/18 at 13:06 ; Status DC Sodium Chloride (Normal Saline Flush) 3 ml QSHIFT PRN IV AFTER MEDS AND BLOOD DRAWS; Start 09/22/18 at 17:30 Sodium Chloride 1,000 ml @ 100 mls/hr Q10H IV Last administered on 09/28/18at 05 :44; Start 09/22/18 at 18:00 Acetaminophen/ Hydrocodone Bitart (Lortab 5/325) 1 tab PRN Q4HRS PRN PO MILD PAIN Last administered on 09/24/18at 15:59; Start 09/22/18 at 17:30 Ondansetron HCl (Zofran) 4 mg PRN Q6HRS PRN IV NAUESA, 1ST CHOICE; Start at 17:30 Prochlorperazine Edisylate (Compazine) 5 mg PRN Q6HRS PRN IV N/V, 2nd Choice, MR X1; Start 09/22/18 at 17:30 Docusate Sodium (Colace) 100 mg BID PO Last administered on 09/26/18 08:29; Start 09/22/18 at 21:00 Daptomycin 480 mg/ Sodium Chloride 50 ml @ 100 mls/hr Q24H IV Last administered on 09/27/18 14:35; Start 09/23/18 at 14:00; Stop 09/28/18 at 10:16 ; Status DC Rivaroxaban (Xarelto) 20 mg DAILYWSUP PO Last administered on 09/27/18 16:26; Start 09/23/18 at 17:00 Morphine Sulfate (Morphine Sulfate) 2 mg PRN Q2HR PRN IV PAIN Last administered on 09/25/18 14:09; Start 09/24/18 at 11:45 Magnesium Sulfate 50 ml @ 25 mls/hr 1X ONCE IV Last administered on 09/25/18 13:43; Start 09/25/18 at 12:00; Stop 09/25/18 at 13:59; Status DC Meropenem 500 mg/ Sodium Chloride 50 ml @ 100 mls/hr Q6HRS IV Last administered on 09/28/18 05:44; Start 09/26/18 at 18:00 Potassium Chloride (Klor-Con) 40 meq 1X ONCE PO Last administered on 16:26; Start 09/27/18 at 15:15; Stop 09/27/18 at 15:16; Status DC Potassium Chloride (Klor-Con) 20 meq DAILYWBKFT PO Last administered on at 08:37; Start 09/28/18 at 08:00 Linezolid (Zyvox) 600 mg BID PO ; Start 09/28/18 at 21:00 Active Scripts Active Potassium Chloride 20 Meq Tab.er.prt 1 Tab PO DAILY Reported Lisinopril 20 Mg Tablet 10 Mg PO DAILY Xarelto (Rivaroxaban) 20 Mg Tablet 20 Mg PO DAILY Vitals/I & O Vital Sign - Last 24 Hours 09/27/18 09/27/18 09/27/18 09/27/18 11:00 11:40 11:42 15:00 Temp 97.9 97.8 97.8 98.5 97.9 97.8 97.8 98.5 Pulse 87 82 82 102 Resp 17 17 18 B/P (MAP) 157/84 (108) 125/62 (83) 125/62 (83) 139/67 (91) Pulse Ox 96 99 99 98 O2 Delivery Room Air Nasal Cannula Nasal Cannula Nasal Cannula O2 Flow Rate 2.0 2.0 2.0 09/27/18 09/27/18 09/27/18 09/28/18 19:00 20:00 23:00 03:05 Temp 97.8 98.5 97.9 97.8 98.5 97.9 Pulse 95 83 85 Resp 20 20 20 B/P (MAP) 125/69 (87) 138/69 (92) 142/70 (94) Pulse Ox 98 98 99 O2 Delivery Nasal Cannula Nasal Cannula Nasal Cannula Nasal Cannula O2 Flow Rate 2.0 09/28/18 07:00 Temp 97.9 97.9 Pulse 83 Resp 16 B/P (MAP) 134/71 (92) Pulse Ox 100 O2 Delivery Nasal Cannula O2 Flow Rate 2.0 Intake and Output 09/27/18 09/27/18 09/28/18 15:00 23:00 07:00 Intake Total 630 ml 1280 ml Output Total 125 ml 1500 ml 1100 ml Balance 505 ml -220 ml -1100 ml Nutrition Consultation Dietary Evaluation: Recommendations by RD: Add supplement feedings Comments: per RN diet to adv to regular as tolerated: sending orange flavor lyndsey bid continue mvi and vit c per wound protocal Expected Outcomes/Goals: to meet > 75% est nutr needs- goal ongoing Malnutrition Findings: Food and Nutrition Intake (Mod: <75% est energy req 7days Weight Status: Appropriate TORIN DU III DO Sep 28, 2018 10:35
[2018-09-28 11:00] VITALS: BP 115/62
[2018-09-28] MEDS: MICAFUNGIN 100 MG in IV DEXTROSE 5% 100ML 100 ML IV SCH (14:00)
--- NOTE | 2018-09-28 14:48 | NUR ---
[facility] following pt. Per Mari at [facility], pt does have SNU benefits and they are able to accept pending insurance approval. Pt currently on Meropenem and Micafungin. Mari reported the Micafungin is expensive ($300/day) and [facility] won't be able to accommodate that. Will discuss with ID in the am. SW also encouraged pt to continue to participate with PT/OT. Discussed with RN.
[2018-09-28 15:00] VITALS: BP 137/71
[2018-09-28] MEDS: MORPHINE SULFATE 2 MG/ML VIAL. IV PRN (15:29)
--- NOTE | 2018-09-28 16:41 | NUR ---
Wound Care: Wound care follow up for wound care dressing change to scrotum. Pt dosed with pain medication by RN prior to wound care arrival. Removed packing, wound cleansed, assessed, measured, and pictured. Wound then rinsed wound with Dakin's cleansing solution. Scrotum wound s/p I&D 09/23, testicle exposed. Repacked with Iodoform 1" gauze packing and covered with ABD pads and mesh underwear. Patient coccyx is reddened but remains blanchable. Patient stating he is not turning as often as he should due to pain. Patient agreeable to turn using wedge at this time. Patient turned to left side. Bilateral heels floated. Patient is on a P-500 bed at this time. WC will follow up with patient on Friday to change scrotum and abdominal dressing. Call light in reach and bed lowered.
[2018-09-28] MEDS: RIVAROXABAN 10 MG TABLET. PO SCH (18:04)
--- NOTE | 2018-09-28 18:22 | PDOC ---
PROGRESS NOTES Chief Complaint Chief Complaint Sepsis with elevated lactate 7, now normal Necrotizing fasciitis Scrotal edema status post IND OR 09/22/18 by urology Closed anion gap Renal failure, acute - improving Hyponatremia 134-very dry, IMPROVING SIGNIF Tachycardia 120s to 1300 sinus, RESLVED Leukocytosis improving BILateral scrotal swelling improving History recent UTI-a week ago Colon CA on chemotherapy KU status post colon Resection with indwelling colostomy Ventral hernia mesh wound, infected INdwelling colostomy bag right History of Present Illness History of Present Illness Pt seen and examined Vitals Vitals Vital Signs Date Time Temp Pulse Resp B/P (MAP) Pulse Ox O2 Delivery O2 Flow Rate FiO2 09/28/18 15:59 16 95 Nasal Cannula 09/28/18 15:29 2.0 09/28/18 15:00 98.2 101 137/71 (93) 98.2 Physical Exam Physical Exam GENERAL: Propped up in bed, alert, NAD HEENT: Oral mucosa dry LUNGS: Clear bilaterally. HEART: S1, S2 ABDOMEN: Nondistended, soft, Ostomy. wound-bandaged : Prather. Scrotum currently bandaged - less edema and erythema/drainage. 3 penroses EXTREMITIES: No edema. No cyanosis. 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 PIV General: Alert, Oriented X3, Cooperative, No acute distress Heart: Regular rate, Normal S1, Normal S2, No murmurs Lungs: Clear Abdomen: Soft, No tenderness, No masses Extremities: No edema, Normal pulses, No tenderness/swelling Skin: No rashes, No breakdown, Other (Wound site is clean, dry, and intact) Labs LABS Laboratory Tests Test 09/28/18 05:15 White Blood Count 8.6 x10^3/uL (4.0-11.0) Red Blood Count 3.27 x10^6/uL (4.30-5.70) Hemoglobin 9.1 g/dL (13.0-17.5) Hematocrit 27.5 % (39.0-53.0) Mean Corpuscular Volume 84 fL (79-100) Mean Corpuscular Hemoglobin 28 pg (25-35) Mean Corpuscular Hemoglobin Concent 33 g/dL (31-37) Red Cell Distribution Width 18.1 % (11.5-14.5) Platelet Count 156 x10^3/uL (140-400) Neutrophils (%) (Auto) 89 % (31-73) Lymphocytes (%) (Auto) 7 % (24-48) Monocytes (%) (Auto) 4 % (0-9) Eosinophils (%) (Auto) 0 % (0-3) Basophils (%) (Auto) 0 % (0-3) Neutrophils # (Auto) 7.7 x10^3uL (1.8-7.7) Lymphocytes # (Auto) 0.6 x10^3/uL (1.0-4.8) Monocytes # (Auto) 0.3 x10^3/uL (0.0-1.1) Eosinophils # (Auto) 0.0 x10^3/uL (0.0-0.7) Basophils # (Auto) 0.0 x10^3/uL (0.0-0.2) Erythrocyte Sedimentation Rate 97 (0-15) Creatine Kinase 56 U/L (39-308) Review of Systems Review of Systems co pain co weakness Assessment and Plan Assessmemt and Plan Problems Medical Problems: (1) Sepsis Status: Acute Sepsis with elevated lactate 7, now normal Necrotizing fasciitis- follow up cultures so far normal Scrotal edema status post IND OR 09/22/18 by urology Closed anion gap Renal failure, acute - improving Leukocytosis improving BILateral scrotal swelling improving History recent UTI-a week ago Colon CA on chemotherapy KU status post colon Resection with indwelling colostomy Ventral hernia mesh wound, infected Indwelling colostomy bag right Plan Plan of Care Wound care Continue linezolid, daptomycin, and meropenem Continue prather catheter Follow up labs- monitor K level Continue 2L fluids PT/OT Continue home meds Discussed with case finisher- SNU evaluation in progress Comment Review of Relevant I have reviewed the following items renetta (where applicable) has been applied. Labs Laboratory Tests Test 09/27/18 12:29 09/28/18 05:15 Sodium Level 139 mmol/L (136-145) Potassium Level 3.4 mmol/L (3.5-5.1) Chloride Level 103 mmol/L (98-107) Carbon Dioxide Level 28 mmol/L (21-32) Anion Gap 8 (6-14) Blood Urea Nitrogen 14 mg/dL (8-26) Creatinine 0.9 mg/dL (0.7-1.3) Estimated GFR (Cockcroft-Gault) 84.7 BUN/Creatinine Ratio 16 (6-20) Glucose Level 118 mg/dL (70-99) Calcium Level 7.5 mg/dL (8.5-10.1) Total Bilirubin 0.3 mg/dL (0.2-1.0) Aspartate Amino Transf (AST/SGOT) 31 U/L (15-37) Alanine Aminotransferase (ALT/SGPT) 25 U/L (16-63) Alkaline Phosphatase 99 U/L (46-116) Total Protein 5.3 g/dL (6.4-8.2) Albumin 1.1 g/dL (3.4-5.0) Albumin/Globulin Ratio 0.3 (1.0-1.7) White Blood Count 8.6 x10^3/uL (4.0-11.0) Red Blood Count 3.27 x10^6/uL (4.30-5.70) Hemoglobin 9.1 g/dL (13.0-17.5) Hematocrit 27.5 % (39.0-53.0) Mean Corpuscular Volume 84 fL (79-100) Mean Corpuscular Hemoglobin 28 pg (25-35) Mean Corpuscular Hemoglobin Concent 33 g/dL (31-37) Red Cell Distribution Width 18.1 % (11.5-14.5) Platelet Count 156 x10^3/uL (140-400) Neutrophils (%) (Auto) 89 % (31-73) Lymphocytes (%) (Auto) 7 % (24-48) Monocytes (%) (Auto) 4 % (0-9) Eosinophils (%) (Auto) 0 % (0-3) Basophils (%) (Auto) 0 % (0-3) Neutrophils # (Auto) 7.7 x10^3uL (1.8-7.7) Lymphocytes # (Auto) 0.6 x10^3/uL (1.0-4.8) Monocytes # (Auto) 0.3 x10^3/uL (0.0-1.1) Eosinophils # (Auto) 0.0 x10^3/uL (0.0-0.7) Basophils # (Auto) 0.0 x10^3/uL (0.0-0.2) Erythrocyte Sedimentation Rate 97 (0-15) Creatine Kinase 56 U/L (39-308) Laboratory Tests Test 09/28/18 05:15 White Blood Count 8.6 x10^3/uL (4.0-11.0) Red Blood Count 3.27 x10^6/uL (4.30-5.70) Hemoglobin 9.1 g/dL (13.0-17.5) Hematocrit 27.5 % (39.0-53.0) Mean Corpuscular Volume 84 fL (79-100) Mean Corpuscular Hemoglobin 28 pg (25-35) Mean Corpuscular Hemoglobin Concent 33 g/dL (31-37) Red Cell Distribution Width 18.1 % (11.5-14.5) Platelet Count 156 x10^3/uL (140-400) Neutrophils (%) (Auto) 89 % (31-73) Lymphocytes (%) (Auto) 7 % (24-48) Monocytes (%) (Auto) 4 % (0-9) Eosinophils (%) (Auto) 0 % (0-3) Basophils (%) (Auto) 0 % (0-3) Neutrophils # (Auto) 7.7 x10^3uL (1.8-7.7) Lymphocytes # (Auto) 0.6 x10^3/uL (1.0-4.8) Monocytes # (Auto) 0.3 x10^3/uL (0.0-1.1) Eosinophils # (Auto) 0.0 x10^3/uL (0.0-0.7) Basophils # (Auto) 0.0 x10^3/uL (0.0-0.2) Erythrocyte Sedimentation Rate 97 (0-15) Creatine Kinase 56 U/L (39-308) Microbiology 09/21/18 Blood Culture - Final, Complete NO GROWTH AFTER 5 DAYS 09/21/18 Anaerobic/Aerobic Culture - Preliminary, Resulted 09/21/18 Anaerobic Culture Result 1 (PRIMITIVO) - Preliminary, Resulted 09/21/18 Aerobic Culture - Final, Resulted 09/21/18 Aerobic Culture Result 1 (PRIMITIVO) - Final, Resulted 09/21/18 Gram Stain - Final, Resulted 09/21/18 Gram Stain Result 1 (PRIMITIVO) - Final, Resulted 09/21/18 Gram Stain Result 2 (PRIMITIVO) - Final, Resulted 09/21/18 Gram Stain Result 3 (PRIMITIVO) - Final, Resulted 09/21/18 Gram Stain Result 4 (PRIMITIVO) - Final, Resulted 09/21/18 Urine Culture - Final, Complete 09/21/18 Urine Culture Result 1 (PRIMITIVO) - Final, Complete 09/21/18 Anaerobic/Aerobic Culture - Final, Complete 09/21/18 Anaerobic Culture Result 1 (PRIMITIVO) - Final, Complete 09/21/18 Aerobic Culture - Final, Complete 09/21/18 Aerobic Culture Result 1 (PRIMITIVO) - Final, Complete 09/21/18 Gram Stain - Final, Complete 09/21/18 Gram Stain Result 1 (PRIMITIVO) - Final, Complete 09/21/18 Gram Stain Result 2 (PRIMITIVO) - Final, Complete 09/21/18 Gram Stain Result 3 (PRIMITIVO) - Final, Complete Medications Current Medications Sodium Chloride 1,000 ml @ 1,000 mls/hr 1X ONCE IV Last administered on at 13:56; Start 09/21/18 at 14:00; Stop 09/21/18 at 14:59; Status DC Piperacillin Sod/ Tazobactam Sod 3.375 gm/Sodium Chloride 50 ml @ 100 mls/hr 1X ONCE IV Last administered on 09/21/18at 14:59; Start 09/21/18 at 14:30; Stop 09/21/18 at 14:59; Status DC Sodium Chloride 1,000 ml @ 1,000 mls/hr 1X ONCE IV Last administered on at 14:55; Start 09/21/18 at 14:30; Stop 09/21/18 at 15:29; Status DC Ondansetron HCl (Zofran) 4 mg PRN Q8HRS PRN IV NAUSEA/VOMITING; Start 09/21/18 at 14:45; Stop 09/21/18 at 16:31; Status DC Sodium Chloride 1,000 ml @ 150 mls/hr Q6H40M IV Last administered on at 11:24; Start 09/21/18 at 14:40; Stop 09/22/18 at 14:39; Status DC Acetaminophen (Tylenol) 650 mg PRN Q4HRS PRN PO FEVER; Start 09/21/18 at 14:45 ; Stop 09/22/18 at 14:44; Status DC Vancomycin HCl 250 ml @ 250 mls/hr 1X ONCE IV ; Start 09/21/18 at 14:45; Stop 09/21/18 at 15:44; Status UNV Vancomycin HCl (Vanco Per Pharmacy) 1 each PRN DAILY PRN MC SEE COMMENTS Last administered on 09/21/18at 18:36; Start 09/21/18 at 14:45; Stop 09/22/18 at 12:37 ; Status DC Vancomycin HCl 1.25 gm/Sodium Chloride 250 ml @ 166.667 mls/hr 1X ONCE IV Last administered on 09/21/18at 15:34; Start 09/21/18 at 15:00; Stop 09/21/18 at 16:29; Status DC Ondansetron HCl (Zofran) 4 mg PRN Q6HRS PRN IV NAUSEA/VOMITING; Start 09/21/18 at 16:45; Stop 09/22/18 at 17:35; Status DC Piperacillin Sod/ Tazobactam Sod (Zosyn Per Pharmacy) 1 each PRN DAILY PRN MC SEE COMMENTS; Start 09/21/18 at 18:00; Stop 09/22/18 at 17:34; Status DC Lisinopril (Prinivil) 10 mg DAILY PO Last administered on 09/22/18at 11:24; Start 09/22/18 at 09:00; Stop 09/22/18 at 13:06; Status DC Piperacillin Sod/ Tazobactam Sod 3.375 gm/Sodium Chloride 50 ml @ 100 mls/hr Q6HRS IV Last administered on 09/22/18at 05:48; Start 09/22/18 at 00:00; Stop at 12:40; Status DC Heparin Sodium (Porcine) (Heparin Sodium) 5,000 unit Q8HRS SQ Last administered on 09/22/18at 05:54; Start 09/21/18 at 18:00; Stop 09/22/18 at 11:15 ; Status DC Vancomycin HCl 1.25 gm/Sodium Chloride 250 ml @ 166.667 mls/hr Q24H IV ; Start 09/22/18 at 15:00; Stop 09/22/18 at 15:00; Status DC Vancomycin HCl (Vancomycin Trough Level) 1 each 1X ONCE MC ; Start 09/23/18 at 14:30; Stop 09/23/18 at 14:30; Status DC Iohexol (Omnipaque 240 Mg/ml) 50 ml 1X ONCE PO Last administered on 09/22/18at 07:15; Start 09/22/18 at 07:15; Stop 09/22/18 at 07:16; Status DC Info (CONTRAST GIVEN -- Rx MONITORING) 1 each PRN DAILY PRN MC SEE COMMENTS; Start 09/22/18 at 07:15; Stop 09/24/18 at 07:14; Status DC Ascorbic Acid (Vitamin C) 500 mg DAILY PO Last administered on 09/28/18at 08:36; Start 09/22/18 at 12:00 Multivitamins (Thera M Plus) 1 tab DAILY PO Last administered on 09/28/18at 08:36 ; Start 09/22/18 at 12:00 Rivaroxaban (Xarelto) 15 mg DAILYWSUP PO ; Start 09/22/18 at 17:00; Stop at 14:17; Status DC Info (Anti-Coagulation Monitoring By Pharmacy) 1 each PRN DAILY PRN MC SEE COMMENTS Last administered on 09/27/18at 13:29; Start 09/22/18 at 11:30 Micafungin Sodium 100 mg/Dextrose 100 ml @ 100 mls/hr Q24H IV Last administered on 09/28/18at 14:00; Start 09/22/18 at 13:00 Linezolid/Dextrose 300 ml @ 300 mls/hr Q12HR IV Last administered on 09/28/18at 08:37; Start 09/22/18 at 13:00; Stop 09/28/18 at 10:16; Status DC Daptomycin 480 mg/ Sodium Chloride 50 ml @ 100 mls/hr Q48H IV Last administered on 09/22/18at 15:48; Start 09/22/18 at 14:00; Stop 09/23/18 at 12:55 ; Status DC Meropenem 500 mg/ Sodium Chloride 50 ml @ 100 mls/hr Q8HRS IV Last administered on 09/26/18at 05:53; Start 09/22/18 at 14:00; Stop 09/26/18 at 13:54 ; Status DC Bupivacaine HCl/ Epinephrine Bitart (Sensorcain-Mpf Epi 0.5%-[id number]) 30 ml STK -MED ONCE .ROUTE ; Start 09/22/18 at 14:34; Stop 09/22/18 at 15:35; Status DC Bupivacaine HCl (Sensorcaine Mpf 0.5%) 30 ml STK-MED ONCE .ROUTE ; Start at 14:35; Stop 09/22/18 at 15:35; Status DC Propofol 20 ml @ As Directed STK-MED ONCE IV ; Start 09/22/18 at 15:56; Stop at 15:57; Status DC Lidocaine HCl (Lidocaine Pf 2% Vial) 5 ml STK-MED ONCE .ROUTE ; Start 09/22/18 at 15:56; Stop 09/22/18 at 15:57; Status DC Dexamethasone Sodium Phosphate (Decadron) 20 mg STK-MED ONCE .ROUTE ; Start at 16:00; Stop 09/22/18 at 16:01; Status DC Ondansetron HCl (Zofran) 4 mg STK-MED ONCE .ROUTE ; Start 09/22/18 at 16:00; Stop 09/22/18 at 16:01; Status DC Phenylephrine HCl (PHENYLEPHRINE in 0.9% NACL PF) 1 mg STK-MED ONCE IV ; Start 09/22/18 at 16:17; Stop 09/22/18 at 16:18; Status DC Fentanyl Citrate (Fentanyl 2ml Vial) 100 mcg STK-MED ONCE .ROUTE ; Start at 16:30; Stop 09/22/18 at 16:31; Status DC Sevoflurane (Ultane) 30 ml STK-MED ONCE IH ; Start 09/22/18 at 16:53; Stop 09/22 at 16:54; Status DC Al Hydroxide/Mg Hydroxide (Mylanta Plus Xs) 30 ml PRN Q3HRS PRN PO HEARTBURN / GAS; Start 09/22/18 at 17:30 Naloxone HCl (Narcan) 0.1 mg PRN Q2MIN PRN IV SEE COMMENTS; Start 09/22/18 at 17:30 Heparin Sodium (Porcine) (Heparin Sodium) 5,000 unit Q8HRS SQ Last administered on 09/23/18at 05:39; Start 09/22/18 at 22:00; Stop 09/23/18 at 13:06 ; Status DC Sodium Chloride (Normal Saline Flush) 3 ml QSHIFT PRN IV AFTER MEDS AND BLOOD DRAWS; Start 09/22/18 at 17:30 Sodium Chloride 1,000 ml @ 100 mls/hr Q10H IV Last administered on 09/28/18at 18 :04; Start 09/22/18 at 18:00 Acetaminophen/ Hydrocodone Bitart (Lortab 5/325) 1 tab PRN Q4HRS PRN PO MILD PAIN Last administered on 09/24/18at 15:59; Start 09/22/18 at 17:30 Ondansetron HCl (Zofran) 4 mg PRN Q6HRS PRN IV NAUESA, 1ST CHOICE; Start at 17:30 Prochlorperazine Edisylate (Compazine) 5 mg PRN Q6HRS PRN IV N/V, 2nd Choice, MR X1; Start 09/22/18 at 17:30 Docusate Sodium (Colace) 100 mg BID PO Last administered on 09/26/18at 08:29; Start 09/22/18 at 21:00 Daptomycin 480 mg/ Sodium Chloride 50 ml @ 100 mls/hr Q24H IV Last administered on 09/27/18at 14:35; Start 09/23/18 at 14:00; Stop 09/28/18 at 10:16 ; Status DC Rivaroxaban (Xarelto) 20 mg DAILYWSUP PO Last administered on 09/28/18 18:04; Start 09/23/18 at 17:00 Morphine Sulfate (Morphine Sulfate) 2 mg PRN Q2HR PRN IV PAIN Last administered on 09/28/18 15:29; Start 09/24/18 at 11:45 Magnesium Sulfate 50 ml @ 25 mls/hr 1X ONCE IV Last administered on 09/25/18at 13:43; Start 09/25/18 at 12:00; Stop 09/25/18 at 13:59; Status DC Meropenem 500 mg/ Sodium Chloride 50 ml @ 100 mls/hr Q6HRS IV Last administered on 09/28/18at 18:04; Start 09/26/18 at 18:00 Potassium Chloride (Klor-Con) 40 meq 1X ONCE PO Last administered on 16:26; Start 09/27/18 at 15:15; Stop 09/27/18 at 15:16; Status DC Potassium Chloride (Klor-Con) 20 meq DAILYWBKFT PO Last administered on at 08:37; Start 09/28/18 at 08:00 Linezolid (Zyvox) 600 mg BID PO ; Start 09/28/18 at 21:00 Active Scripts Active Potassium Chloride 20 Meq Tab.er.prt 1 Tab PO DAILY Reported Lisinopril 20 Mg Tablet 10 Mg PO DAILY Xarelto (Rivaroxaban) 20 Mg Tablet 20 Mg PO DAILY Vitals/I & O Vital Sign - Last 24 Hours 09/27/18 09/27/18 09/27/18 09/28/18 19:00 20:00 23:00 03:05 Temp 97.8 98.5 97.9 97.8 98.5 97.9 Pulse 95 83 85 Resp 20 20 20 B/P (MAP) 125/69 (87) 138/69 (92) 142/70 (94) Pulse Ox 98 98 99 O2 Delivery Nasal Cannula Nasal Cannula Nasal Cannula Nasal Cannula O2 Flow Rate 2.0 09/28/18 09/28/18 09/28/18 09/28/18 07:00 08:00 11:00 15:00 Temp 97.9 97.6 98.2 97.9 97.6 98.2 Pulse 83 114 101 Resp 16 18 18 B/P (MAP) 134/71 (92) 115/62 (79) 137/71 (93) Pulse Ox 100 95 97 O2 Delivery Nasal Cannula Nasal Cannula Room Air Room Air O2 Flow Rate 2.0 2.0 09/28/18 09/28/18 15:29 15:59 Resp 16 16 Pulse Ox 95 95 O2 Delivery Nasal Cannula Nasal Cannula O2 Flow Rate 2.0 Intake and Output 09/27/18 09/27/18 09/28/18 15:00 23:00 07:00 Intake Total 630 ml 1280 ml Output Total 125 ml 1500 ml 1100 ml Balance 505 ml -220 ml -1100 ml Nutrition Consultation Dietary Evaluation: Recommendations by RD: Add supplement feedings Comments: per RN diet to adv to regular as tolerated: sending orange flavor lyndsey bid continue mvi and vit c per wound protocal Expected Outcomes/Goals: to meet > 75% est nutr needs- goal ongoing Malnutrition Findings: Food and Nutrition Intake (Mod: <75% est energy req 7days Weight Status: Appropriate VINITA DUL K III DO Sep 28, 2018 18:22
[2018-09-28 19:00] VITALS: BP 132/71
[2018-09-28] MEDS: LINEZOLID 600 MG TABLET PO SCH (20:19)
[2018-09-28 22:32] VITALS: BP 140/77
[2018-09-29] MEDS: MEROPENEM 500 MG in IV NORMAL SALINE 50ML 50 ML IV SCH ×4 (00:09→18:28)
[2018-09-29] MEDS: IV 1/2 NORMAL SALINE 1,000 ML IV SCH ×3 (01:38→20:00)
[2018-09-29 03:00] VITALS: BP 102/81
[2018-09-29 03:53] LABS: BASO % 0 % (0-3); EOS % 0 % (0-3); HEMATOCRIT 26.8 % (39.0-53.0); HEMOGLOBIN 8.8 g/dL (13.0-17.5); LYMPH # 0.5 x10^3/uL (1.0-4.8); LYMPH % 6 % (24-48); MEAN CORPUSCULAR HEMOGLOBIN 27 pg (25-35); MEAN CORPUSCULAR HGB CONC 33 g/dL (31-37); MEAN CORPUSCULAR VOLUME 83 fL (79-100); MONO # 0.4 x10^3/uL (0.0-1.1); MONO % 4 % (0-9); NEUT # 7.7 x10^3uL (1.8-7.7); NEUT % 89 % (31-73); PLATELET COUNT 168 x10^3/uL (140-400); RED BLOOD COUNT 3.22 x10^6/uL (4.30-5.70); RED CELL DISTRIBUTION WIDTH 17.9 % (11.5-14.5); WHITE BLOOD COUNT 8.7 x10^3/uL (4.0-11.0)
[2018-09-29 04:12] LABS: CALCIUM 7.4 mg/dL (8.5-10.1); CREATININE 0.8 mg/dL (0.7-1.3); POTASSIUM 3.2 mmol/L (3.5-5.1)
[2018-09-29 04:54] LABS: % BANDS 2 % (0-9); % LYMPHS 8 % (24-48); % METAS 1 % (0-0); % MONOS 4 % (0-10); % SEGS 85 % (35-66); ANISOCYTOSIS SLIGHT; HYPOCHROMIA SLIGHT; PLT ESTIMATE ADEQUATE (ADEQUATE); TEAR DROP CELLS OCC; TOXIC GRANULATION MOD; TOXIC VACUOLATION SLIGHT
[2018-09-29 07:00] VITALS: BP 149/79
[2018-09-29] MEDS: ASCORBIC ACID 500 MG TABLET PO SCH (07:57)
[2018-09-29] MEDS: LINEZOLID 600 MG TABLET PO SCH (07:57)
[2018-09-29] MEDS: MULTIVITAMIN with MINERAL TABLET. PO SCH (07:57)
[2018-09-29] MEDS: POTASSIUM CHLORIDE 20 MEQ TABLET.ER. PO SCH (07:57)
[2018-09-29] MEDS: DOCUSATE SODIUM 100 MG CAPSULE. PO SCH ×3 (07:57→21:00)
--- NOTE | 2018-09-29 10:53 | PDOC ---
Infectious Disease Note Subjective Subjective Feeling alright Pain controlled Appetite fair throat better with bubbling Denies F/C/S/N/V/D/aches ROS ROS o/w neg Vital Sign Vital Signs Vital Signs Date Time Temp Pulse Resp B/P (MAP) Pulse Ox O2 Delivery O2 Flow Rate FiO2 09/29/18 08:00 Room Air 09/29/18 07:00 98.0 95 16 149/79 (102) 96 98.0 09/28/18 15:29 2.0 Physical Exam PHYSICAL EXAM GENERAL: Propped up in bed, alert, NAD HEENT: Oral mucosa dry LUNGS: Clear bilaterally. HEART: S1, S2 ABDOMEN: Nondistended, soft, Ostomy. wound-bandaged : Saravia. Scrotum currently bandaged - less edema and erythema/drainage. 3 penroses EXTREMITIES: No edema. No cyanosis. 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 PIV Labs Lab Laboratory Tests Test 09/29/18 03:30 White Blood Count 8.7 x10^3/uL (4.0-11.0) Red Blood Count 3.22 x10^6/uL (4.30-5.70) Hemoglobin 8.8 g/dL (13.0-17.5) Hematocrit 26.8 % (39.0-53.0) Mean Corpuscular Volume 83 fL (79-100) Mean Corpuscular Hemoglobin 27 pg (25-35) Mean Corpuscular Hemoglobin Concent 33 g/dL (31-37) Red Cell Distribution Width 17.9 % (11.5-14.5) Platelet Count 168 x10^3/uL (140-400) Neutrophils (%) (Auto) 89 % (31-73) Lymphocytes (%) (Auto) 6 % (24-48) Monocytes (%) (Auto) 4 % (0-9) Eosinophils (%) (Auto) 0 % (0-3) Basophils (%) (Auto) 0 % (0-3) Neutrophils # (Auto) 7.7 x10^3uL (1.8-7.7) Lymphocytes # (Auto) 0.5 x10^3/uL (1.0-4.8) Monocytes # (Auto) 0.4 x10^3/uL (0.0-1.1) Eosinophils # (Auto) 0.0 x10^3/uL (0.0-0.7) Basophils # (Auto) 0.0 x10^3/uL (0.0-0.2) Segmented Neutrophils % 85 % (35-66) Band Neutrophils % 2 % (0-9) Lymphocytes % 8 % (24-48) Monocytes % 4 % (0-10) Metamyelocytes % 1 % (0-0) Toxic Granulation Mod Toxic Vacuolation Slight Platelet Estimate Adequate (ADEQUATE) Hypochromasia Slight Anisocytosis Slight Tear Drop Cells Occ Sodium Level 139 mmol/L (136-145) Potassium Level 3.2 mmol/L (3.5-5.1) Chloride Level 103 mmol/L (98-107) Carbon Dioxide Level 28 mmol/L (21-32) Anion Gap 8 (6-14) Blood Urea Nitrogen 7 mg/dL (8-26) Creatinine 0.8 mg/dL (0.7-1.3) Estimated GFR (Cockcroft-Gault) 97.0 Glucose Level 95 mg/dL (70-99) Calcium Level 7.4 mg/dL (8.5-10.1) Micro Microbiology 09/21/18 Blood Culture - Final, Complete NO GROWTH AFTER 5 DAYS 09/21/18 Anaerobic/Aerobic Culture - Preliminary, Resulted 09/21/18 Anaerobic Culture Result 1 (PRIMITIVO) - Preliminary, Resulted 09/21/18 Aerobic Culture - Final, Resulted 09/21/18 Aerobic Culture Result 1 (PRIMITIVO) - Final, Resulted 09/21/18 Gram Stain - Final, Resulted 09/21/18 Gram Stain Result 1 (PRIMITIVO) - Final, Resulted 09/21/18 Gram Stain Result 2 (PRIMITIVO) - Final, Resulted 09/21/18 Gram Stain Result 3 (PRIMITIVO) - Final, Resulted 09/21/18 Gram Stain Result 4 (PRIMITIVO) - Final, Resulted 09/21/18 Urine Culture - Final, Complete 09/21/18 Urine Culture Result 1 (PRIMITIVO) - Final, Complete 09/21/18 Anaerobic/Aerobic Culture - Preliminary, Resulted 09/21/18 Anaerobic Culture Result 1 (PRIMITIVO) - Preliminary, Resulted 09/21/18 Aerobic Culture - Final, Resulted 09/21/18 Aerobic Culture Result 1 (PRIMITIVO) - Final, Resulted 09/21/18 Gram Stain - Final, Resulted 09/21/18 Gram Stain Result 1 (PRIMITIVO) - Final, Resulted 09/21/18 Gram Stain Result 2 (PRIMITIVO) - Final, Resulted 09/21/18 Gram Stain Result 3 (PRIMITIVO) - Final, Resulted Objective Assessment Severe sepsis source , improving Left inguinal, Scrotal cellulitis/abscess s/p I and D 09/22. CULTS GNR, GPC, GPR. growth of yeast/Prevotella so far. final ID and PRIMITIVO pending still Leucocytosis source improving Abdominal hernia with infected mesh with purulence, needs removal but on hold per Dr Clarke at [facility] due to immunosuppression. GPC and GNR - He will need f/u after discharge at Colon cancer on chemo Immunosuppression Urinary retention, Saravia in place THAD, improved Plan Plan of Care D/c Daptomycin 09/28 Will d/c Zyvox 09/22 - 09/29 Cont Merrem and micafungin am labs f/u cultures so far neg Gen surgery following, Urology following [place] MD Sep 29, 2018 10:53
[2018-09-29 11:09] VITALS: BP 139/78
--- NOTE | 2018-09-29 11:09 | PDOC ---
PROGRESS NOTES Chief Complaint Chief Complaint Sepsis with elevated lactate 7, now normal Necrotizing fasciitis Scrotal edema status post IND OR 09/22/18 by urology Closed anion gap Renal failure, acute - improving Hyponatremia 134-very dry, IMPROVING SIGNIF Hypokalemia Tachycardia 120s to 1300 sinus, RESOLVED Leukocytosis resolved Bilateral scrotal swelling improving History recent UTI-a week ago Colon CA on chemotherapy KU status post colon Resection with indwelling colostomy Ventral hernia mesh wound, infected Indwelling colostomy bag right History of Present Illness History of Present Illness Patient was resting comfortably in bed. He has no complaints today. Vitals Vitals Vital Signs Date Time Temp Pulse Resp B/P (MAP) Pulse Ox O2 Delivery O2 Flow Rate FiO2 09/29/18 08:00 Room Air 09/29/18 07:00 98.0 95 16 149/79 (102) 96 98.0 09/28/18 15:29 2.0 Physical Exam Physical Exam General: Alert, Oriented X3, Cooperative, No acute distress Heart: Regular rate, Normal S1, Normal S2, No murmurs Lungs: Clear Abdomen: Soft, No tenderness, No masses Extremities: No edema, Normal pulses, No tenderness/swelling Skin: No rashes, No breakdown, Other (Wound site is clean, dry, and intact) Labs LABS Laboratory Tests Test 09/29/18 03:30 White Blood Count 8.7 x10^3/uL (4.0-11.0) Red Blood Count 3.22 x10^6/uL (4.30-5.70) Hemoglobin 8.8 g/dL (13.0-17.5) Hematocrit 26.8 % (39.0-53.0) Mean Corpuscular Volume 83 fL (79-100) Mean Corpuscular Hemoglobin 27 pg (25-35) Mean Corpuscular Hemoglobin Concent 33 g/dL (31-37) Red Cell Distribution Width 17.9 % (11.5-14.5) Platelet Count 168 x10^3/uL (140-400) Neutrophils (%) (Auto) 89 % (31-73) Lymphocytes (%) (Auto) 6 % (24-48) Monocytes (%) (Auto) 4 % (0-9) Eosinophils (%) (Auto) 0 % (0-3) Basophils (%) (Auto) 0 % (0-3) Neutrophils # (Auto) 7.7 x10^3uL (1.8-7.7) Lymphocytes # (Auto) 0.5 x10^3/uL (1.0-4.8) Monocytes # (Auto) 0.4 x10^3/uL (0.0-1.1) Eosinophils # (Auto) 0.0 x10^3/uL (0.0-0.7) Basophils # (Auto) 0.0 x10^3/uL (0.0-0.2) Segmented Neutrophils % 85 % (35-66) Band Neutrophils % 2 % (0-9) Lymphocytes % 8 % (24-48) Monocytes % 4 % (0-10) Metamyelocytes % 1 % (0-0) Toxic Granulation Mod Toxic Vacuolation Slight Platelet Estimate Adequate (ADEQUATE) Hypochromasia Slight Anisocytosis Slight Tear Drop Cells Occ Sodium Level 139 mmol/L (136-145) Potassium Level 3.2 mmol/L (3.5-5.1) Chloride Level 103 mmol/L (98-107) Carbon Dioxide Level 28 mmol/L (21-32) Anion Gap 8 (6-14) Blood Urea Nitrogen 7 mg/dL (8-26) Creatinine 0.8 mg/dL (0.7-1.3) Estimated GFR (Cockcroft-Gault) 97.0 Glucose Level 95 mg/dL (70-99) Calcium Level 7.4 mg/dL (8.5-10.1) Review of Systems Review of Systems Patient denies fever, chills, N/V, CP, SOB, diarrhea Assessment and Plan Assessmemt and Plan Problems Medical Problems: (1) Sepsis Status: Acute Assessment: Sepsis with elevated lactate 7, now normal Necrotizing fasciitis- follow up cultures so far normal Scrotal edema status post IND OR 09/22/18 by urology Closed anion gap Renal failure, acute - improving Leukocytosis improving Bilateral scrotal swelling improving Hypokalemia History recent UTI-a week ago Colon CA on chemotherapy KU status post colon Resection with indwelling colostomy Ventral hernia mesh wound, infected Indwelling colostomy bag right Plan: Wound care Continue linezolid, micafungin, and meropenem Continue prather catheter Follow up labs- monitor K and Mg level Continue IV fluids PT/OT Continue home meds DC disposition pending Comment Review of Relevant I have reviewed the following items renetta (where applicable) has been applied. Labs Laboratory Tests Test 09/27/18 12:29 09/28/18 05:15 09/29/18 03:30 Sodium Level 139 mmol/L (136-145) 139 mmol/L (136-145) Potassium Level 3.4 mmol/L (3.5-5.1) 3.2 mmol/L (3.5-5.1) Chloride Level 103 mmol/L (98-107) 103 mmol/L (98-107) Carbon Dioxide Level 28 mmol/L (21-32) 28 mmol/L (21-32) Anion Gap 8 (6-14) 8 (6-14) Blood Urea Nitrogen 14 mg/dL (8-26) 7 mg/dL (8-26) Creatinine 0.9 mg/dL (0.7-1.3) 0.8 mg/dL (0.7-1.3) Estimated GFR (Cockcroft-Gault) 84.7 97.0 BUN/Creatinine Ratio 16 (6-20) Glucose Level 118 mg/dL (70-99) 95 mg/dL (70-99) Calcium Level 7.5 mg/dL (8.5-10.1) 7.4 mg/dL (8.5-10.1) Total Bilirubin 0.3 mg/dL (0.2-1.0) Aspartate Amino Transf (AST/SGOT) 31 U/L (15-37) Alanine Aminotransferase (ALT/SGPT) 25 U/L (16-63) Alkaline Phosphatase 99 U/L (46-116) Total Protein 5.3 g/dL (6.4-8.2) Albumin 1.1 g/dL (3.4-5.0) Albumin/Globulin Ratio 0.3 (1.0-1.7) White Blood Count 8.6 x10^3/uL (4.0-11.0) 8.7 x10^3/uL (4.0-11.0) Red Blood Count 3.27 x10^6/uL (4.30-5.70) 3.22 x10^6/uL (4.30-5.70) Hemoglobin 9.1 g/dL (13.0-17.5) 8.8 g/dL (13.0-17.5) Hematocrit 27.5 % (39.0-53.0) 26.8 % (39.0-53.0) Mean Corpuscular Volume 84 fL (79-100) 83 fL (79-100) Mean Corpuscular Hemoglobin 28 pg (25-35) 27 pg (25-35) Mean Corpuscular Hemoglobin Concent 33 g/dL (31-37) 33 g/dL (31-37) Red Cell Distribution Width 18.1 % (11.5-14.5) 17.9 % (11.5-14.5) Platelet Count 156 x10^3/uL (140-400) 168 x10^3/uL (140-400) Neutrophils (%) (Auto) 89 % (31-73) 89 % (31-73) Lymphocytes (%) (Auto) 7 % (24-48) 6 % (24-48) Monocytes (%) (Auto) 4 % (0-9) 4 % (0-9) Eosinophils (%) (Auto) 0 % (0-3) 0 % (0-3) Basophils (%) (Auto) 0 % (0-3) 0 % (0-3) Neutrophils # (Auto) 7.7 x10^3uL (1.8-7.7) 7.7 x10^3uL (1.8-7.7) Lymphocytes # (Auto) 0.6 x10^3/uL (1.0-4.8) 0.5 x10^3/uL (1.0-4.8) Monocytes # (Auto) 0.3 x10^3/uL (0.0-1.1) 0.4 x10^3/uL (0.0-1.1) Eosinophils # (Auto) 0.0 x10^3/uL (0.0-0.7) 0.0 x10^3/uL (0.0-0.7) Basophils # (Auto) 0.0 x10^3/uL (0.0-0.2) 0.0 x10^3/uL (0.0-0.2) Erythrocyte Sedimentation Rate 97 (0-15) Creatine Kinase 56 U/L (39-308) Segmented Neutrophils % 85 % (35-66) Band Neutrophils % 2 % (0-9) Lymphocytes % 8 % (24-48) Monocytes % 4 % (0-10) Metamyelocytes % 1 % (0-0) Toxic Granulation Mod Toxic Vacuolation Slight Platelet Estimate Adequate (ADEQUATE) Hypochromasia Slight Anisocytosis Slight Tear Drop Cells Occ Laboratory Tests Test 09/29/18 03:30 White Blood Count 8.7 x10^3/uL (4.0-11.0) Red Blood Count 3.22 x10^6/uL (4.30-5.70) Hemoglobin 8.8 g/dL (13.0-17.5) Hematocrit 26.8 % (39.0-53.0) Mean Corpuscular Volume 83 fL (79-100) Mean Corpuscular Hemoglobin 27 pg (25-35) Mean Corpuscular Hemoglobin Concent 33 g/dL (31-37) Red Cell Distribution Width 17.9 % (11.5-14.5) Platelet Count 168 x10^3/uL (140-400) Neutrophils (%) (Auto) 89 % (31-73) Lymphocytes (%) (Auto) 6 % (24-48) Monocytes (%) (Auto) 4 % (0-9) Eosinophils (%) (Auto) 0 % (0-3) Basophils (%) (Auto) 0 % (0-3) Neutrophils # (Auto) 7.7 x10^3uL (1.8-7.7) Lymphocytes # (Auto) 0.5 x10^3/uL (1.0-4.8) Monocytes # (Auto) 0.4 x10^3/uL (0.0-1.1) Eosinophils # (Auto) 0.0 x10^3/uL (0.0-0.7) Basophils # (Auto) 0.0 x10^3/uL (0.0-0.2) Segmented Neutrophils % 85 % (35-66) Band Neutrophils % 2 % (0-9) Lymphocytes % 8 % (24-48) Monocytes % 4 % (0-10) Metamyelocytes % 1 % (0-0) Toxic Granulation Mod Toxic Vacuolation Slight Platelet Estimate Adequate (ADEQUATE) Hypochromasia Slight Anisocytosis Slight Tear Drop Cells Occ Sodium Level 139 mmol/L (136-145) Potassium Level 3.2 mmol/L (3.5-5.1) Chloride Level 103 mmol/L (98-107) Carbon Dioxide Level 28 mmol/L (21-32) Anion Gap 8 (6-14) Blood Urea Nitrogen 7 mg/dL (8-26) Creatinine 0.8 mg/dL (0.7-1.3) Estimated GFR (Cockcroft-Gault) 97.0 Glucose Level 95 mg/dL (70-99) Calcium Level 7.4 mg/dL (8.5-10.1) Microbiology 09/21/18 Blood Culture - Final, Complete NO GROWTH AFTER 5 DAYS 09/21/18 Anaerobic/Aerobic Culture - Preliminary, Resulted 09/21/18 Anaerobic Culture Result 1 (PRIMITIVO) - Preliminary, Resulted 09/21/18 Antimicrobic Susceptibility - Preliminary, Resulted 09/21/18 Aerobic Culture - Final, Resulted 09/21/18 Aerobic Culture Result 1 (PRIMITIVO) - Final, Resulted 09/21/18 Gram Stain - Final, Resulted 09/21/18 Gram Stain Result 1 (PRIMITIVO) - Final, Resulted 09/21/18 Gram Stain Result 2 (PRIMITIVO) - Final, Resulted 09/21/18 Gram Stain Result 3 (PRIMITIVO) - Final, Resulted 09/21/18 Gram Stain Result 4 (PRIMITIVO) - Final, Resulted 09/21/18 Urine Culture - Final, Complete 09/21/18 Urine Culture Result 1 (PRIMITIVO) - Final, Complete 09/21/18 Anaerobic/Aerobic Culture - Final, Complete 09/21/18 Anaerobic Culture Result 1 (PRIMITIVO) - Final, Complete 09/21/18 Aerobic Culture - Final, Complete 09/21/18 Aerobic Culture Result 1 (PRIMITIVO) - Final, Complete 09/21/18 Gram Stain - Final, Complete 09/21/18 Gram Stain Result 1 (PRIMITIVO) - Final, Complete 09/21/18 Gram Stain Result 2 (PRIMITIVO) - Final, Complete 09/21/18 Gram Stain Result 3 (PRIMITIVO) - Final, Complete Medications Current Medications Sodium Chloride 1,000 ml @ 1,000 mls/hr 1X ONCE IV Last administered on at 13:56; Start 09/21/18 at 14:00; Stop 09/21/18 at 14:59; Status DC Piperacillin Sod/ Tazobactam Sod 3.375 gm/Sodium Chloride 50 ml @ 100 mls/hr 1X ONCE IV Last administered on 09/21/18at 14:59; Start 09/21/18 at 14:30; Stop 09/21/18 at 14:59; Status DC Sodium Chloride 1,000 ml @ 1,000 mls/hr 1X ONCE IV Last administered on at 14:55; Start 09/21/18 at 14:30; Stop 09/21/18 at 15:29; Status DC Ondansetron HCl (Zofran) 4 mg PRN Q8HRS PRN IV NAUSEA/VOMITING; Start 09/21/18 at 14:45; Stop 09/21/18 at 16:31; Status DC Sodium Chloride 1,000 ml @ 150 mls/hr Q6H40M IV Last administered on at 11:24; Start 09/21/18 at 14:40; Stop 09/22/18 at 14:39; Status DC Acetaminophen (Tylenol) 650 mg PRN Q4HRS PRN PO FEVER; Start 09/21/18 at 14:45 ; Stop 09/22/18 at 14:44; Status DC Vancomycin HCl 250 ml @ 250 mls/hr 1X ONCE IV ; Start 09/21/18 at 14:45; Stop 09/21/18 at 15:44; Status UNV Vancomycin HCl (Vanco Per Pharmacy) 1 each PRN DAILY PRN MC SEE COMMENTS Last administered on 09/21/18at 18:36; Start 09/21/18 at 14:45; Stop 09/22/18 at 12:37 ; Status DC Vancomycin HCl 1.25 gm/Sodium Chloride 250 ml @ 166.667 mls/hr 1X ONCE IV Last administered on 09/21/18at 15:34; Start 09/21/18 at 15:00; Stop 09/21/18 at 16:29; Status DC Ondansetron HCl (Zofran) 4 mg PRN Q6HRS PRN IV NAUSEA/VOMITING; Start 09/21/18 at 16:45; Stop 09/22/18 at 17:35; Status DC Piperacillin Sod/ Tazobactam Sod (Zosyn Per Pharmacy) 1 each PRN DAILY PRN MC SEE COMMENTS; Start 09/21/18 at 18:00; Stop 09/22/18 at 17:34; Status DC Lisinopril (Prinivil) 10 mg DAILY PO Last administered on 09/22/18at 11:24; Start 09/22/18 at 09:00; Stop 09/22/18 at 13:06; Status DC Piperacillin Sod/ Tazobactam Sod 3.375 gm/Sodium Chloride 50 ml @ 100 mls/hr Q6HRS IV Last administered on 09/22/18at 05:48; Start 09/22/18 at 00:00; Stop at 12:40; Status DC Heparin Sodium (Porcine) (Heparin Sodium) 5,000 unit Q8HRS SQ Last administered on 09/22/18at 05:54; Start 09/21/18 at 18:00; Stop 09/22/18 at 11:15 ; Status DC Vancomycin HCl 1.25 gm/Sodium Chloride 250 ml @ 166.667 mls/hr Q24H IV ; Start 09/22/18 at 15:00; Stop 09/22/18 at 15:00; Status DC Vancomycin HCl (Vancomycin Trough Level) 1 each 1X ONCE MC ; Start 09/23/18 at 14:30; Stop 09/23/18 at 14:30; Status DC Iohexol (Omnipaque 240 Mg/ml) 50 ml 1X ONCE PO Last administered on 09/22/18at 07:15; Start 09/22/18 at 07:15; Stop 09/22/18 at 07:16; Status DC Info (CONTRAST GIVEN -- Rx MONITORING) 1 each PRN DAILY PRN MC SEE COMMENTS; Start 09/22/18 at 07:15; Stop 09/24/18 at 07:14; Status DC Ascorbic Acid (Vitamin C) 500 mg DAILY PO Last administered on 09/29/18at 07:57; Start 09/22/18 at 12:00 Multivitamins (Thera M Plus) 1 tab DAILY PO Last administered on 09/29/18at 07:57 ; Start 09/22/18 at 12:00 Rivaroxaban (Xarelto) 15 mg DAILYWSUP PO ; Start 09/22/18 at 17:00; Stop at 14:17; Status DC Info (Anti-Coagulation Monitoring By Pharmacy) 1 each PRN DAILY PRN MC SEE COMMENTS Last administered on 09/27/18at 13:29; Start 09/22/18 at 11:30 Micafungin Sodium 100 mg/Dextrose 100 ml @ 100 mls/hr Q24H IV Last administered on 09/28/18at 14:00; Start 09/22/18 at 13:00 Linezolid/Dextrose 300 ml @ 300 mls/hr Q12HR IV Last administered on 09/28/18at 08:37; Start 09/22/18 at 13:00; Stop 09/28/18 at 10:16; Status DC Daptomycin 480 mg/ Sodium Chloride 50 ml @ 100 mls/hr Q48H IV Last administered on 09/22/18at 15:48; Start 09/22/18 at 14:00; Stop 09/23/18 at 12:55 ; Status DC Meropenem 500 mg/ Sodium Chloride 50 ml @ 100 mls/hr Q8HRS IV Last administered on 09/26/18at 05:53; Start 09/22/18 at 14:00; Stop 09/26/18 at 13:54 ; Status DC Bupivacaine HCl/ Epinephrine Bitart (Sensorcain-Mpf Epi 0.5%-1:[id number]) 30 ml STK -MED ONCE .ROUTE ; Start 09/22/18 at 14:34; Stop 09/22/18 at 15:35; Status DC Bupivacaine HCl (Sensorcaine Mpf 0.5%) 30 ml STK-MED ONCE .ROUTE ; Start at 14:35; Stop 09/22/18 at 15:35; Status DC Propofol 20 ml @ As Directed STK-MED ONCE IV ; Start 09/22/18 at 15:56; Stop at 15:57; Status DC Lidocaine HCl (Lidocaine Pf 2% Vial) 5 ml STK-MED ONCE .ROUTE ; Start 09/22/18 at 15:56; Stop 09/22/18 at 15:57; Status DC Dexamethasone Sodium Phosphate (Decadron) 20 mg STK-MED ONCE .ROUTE ; Start at 16:00; Stop 09/22/18 at 16:01; Status DC Ondansetron HCl (Zofran) 4 mg STK-MED ONCE .ROUTE ; Start 09/22/18 at 16:00; Stop 09/22/18 at 16:01; Status DC Phenylephrine HCl (PHENYLEPHRINE in 0.9% NACL PF) 1 mg STK-MED ONCE IV ; Start 09/22/18 at 16:17; Stop 09/22/18 at 16:18; Status DC Fentanyl Citrate (Fentanyl 2ml Vial) 100 mcg STK-MED ONCE .ROUTE ; Start at 16:30; Stop 09/22/18 at 16:31; Status DC Sevoflurane (Ultane) 30 ml STK-MED ONCE IH ; Start 09/22/18 at 16:53; Stop 09/22 at 16:54; Status DC Al Hydroxide/Mg Hydroxide (Mylanta Plus Xs) 30 ml PRN Q3HRS PRN PO HEARTBURN / GAS; Start 09/22/18 at 17:30 Naloxone HCl (Narcan) 0.1 mg PRN Q2MIN PRN IV SEE COMMENTS; Start 09/22/18 at 17:30 Heparin Sodium (Porcine) (Heparin Sodium) 5,000 unit Q8HRS SQ Last administered on 09/23/18at 05:39; Start 09/22/18 at 22:00; Stop 09/23/18 at 13:06 ; Status DC Sodium Chloride (Normal Saline Flush) 3 ml QSHIFT PRN IV AFTER MEDS AND BLOOD DRAWS; Start 09/22/18 at 17:30 Sodium Chloride 1,000 ml @ 100 mls/hr Q10H IV Last administered on 09/29/18at 01 :38; Start 09/22/18 at 18:00 Acetaminophen/ Hydrocodone Bitart (Lortab 5/325) 1 tab PRN Q4HRS PRN PO MILD PAIN Last administered on 09/24/18at 15:59; Start 09/22/18 at 17:30 Ondansetron HCl (Zofran) 4 mg PRN Q6HRS PRN IV NAUESA, 1ST CHOICE; Start at 17:30 Prochlorperazine Edisylate (Compazine) 5 mg PRN Q6HRS PRN IV N/V, 2nd Choice, MR X1; Start 09/22/18 at 17:30 Docusate Sodium (Colace) 100 mg BID PO Last administered on 09/26/18at 08:29; Start 09/22/18 at 21:00 Daptomycin 480 mg/ Sodium Chloride 50 ml @ 100 mls/hr Q24H IV Last administered on 09/27/18at 14:35; Start 09/23/18 at 14:00; Stop 09/28/18 at 10:16 ; Status DC Rivaroxaban (Xarelto) 20 mg DAILYWSUP PO Last administered on 09/28/18at 18:04; Start 09/23/18 at 17:00 Morphine Sulfate (Morphine Sulfate) 2 mg PRN Q2HR PRN IV PAIN Last administered on 09/28/18at 15:29; Start 09/24/18 at 11:45 Magnesium Sulfate 50 ml @ 25 mls/hr 1X ONCE IV Last administered on 09/25/18at 13:43; Start 09/25/18 at 12:00; Stop 09/25/18 at 13:59; Status DC Meropenem 500 mg/ Sodium Chloride 50 ml @ 100 mls/hr Q6HRS IV Last administered on 09/29/18at 05:33; Start 09/26/18 at 18:00 Potassium Chloride (Klor-Con) 40 meq 1X ONCE PO Last administered on at 16:26; Start 09/27/18 at 15:15; Stop 09/27/18 at 15:16; Status DC Potassium Chloride (Klor-Con) 20 meq DAILYWBKFT PO Last administered on at 07:57; Start 09/28/18 at 08:00 Linezolid (Zyvox) 600 mg BID PO Last administered on 09/29/18 07:57; Start 09/28 at 21:00 Active Scripts Active Potassium Chloride 20 Meq Tab.er.prt 1 Tab PO DAILY Reported Lisinopril 20 Mg Tablet 10 Mg PO DAILY Xarelto (Rivaroxaban) 20 Mg Tablet 20 Mg PO DAILY Vitals/I & O Vital Sign - Last 24 Hours 09/28/18 09/28/18 09/28/18 09/28/18 15:00 15:29 15:59 19:00 Temp 98.2 98.3 98.2 98.3 Pulse 101 111 Resp 18 16 16 18 B/P (MAP) 137/71 (93) 132/71 (91) Pulse Ox 97 95 95 97 O2 Delivery Room Air Nasal Cannula Nasal Cannula Room Air O2 Flow Rate 2.0 09/28/18 09/28/18 09/29/18 09/29/18 20:00 22:32 03:00 07:00 Temp 98.8 98.7 98.0 98.8 98.7 98.0 Pulse 111 105 95 Resp 18 17 16 B/P (MAP) 140/77 (98) 102/81 (88) 149/79 (102) Pulse Ox 94 96 96 O2 Delivery Room Air Room Air Room Air Room Air 09/29/18 08:00 O2 Delivery Room Air Intake and Output 09/28/18 09/28/18 09/29/18 15:00 23:00 07:00 Intake Total 130 ml Output Total 1400 ml 700 ml 110 ml Balance -1400 ml -700 ml 20 ml Nutrition Consultation Dietary Evaluation: Recommendations by RD: Add supplement feedings Comments: per RN diet to adv to regular as tolerated: sending orange flavor lyndsey bid continue mvi and vit c per wound protocal Expected Outcomes/Goals: to meet > 75% est nutr needs- goal ongoing Malnutrition Findings: Food and Nutrition Intake (Mod: <75% est energy req 7days Weight Status: Appropriate TORIN DU III DO Sep 29, 2018 11:09
--- NOTE | 2018-09-29 11:42 | PDOC ---
PROGRESS NOTE CHIEF COMPLAINT: pain in lower abdomen; weakness SUBJECTIVE: ROS: ROS: RESPIRATORY: Shortness of breath denies. Cough denies. UROLOGY: Denies blood in urine. Denies difficulty urinating; would like prather out but he is not ambulatory HPI: Duration: [] Quality: [] Severity: [] Site/Location: []pt has pain in his open abscess sites; Wound Care Team has seen and has intiated dressing changes Problems: Problems Medical Problems: (1) Sepsis Status: Acute OBJECTIVE: Vital Signs: Vital Signs Date Time Temp Pulse Resp B/P (MAP) Pulse Ox O2 Delivery O2 Flow Rate FiO2 09/29/18 11:09 97.8 96 16 139/78 (98) 96 Room Air 97.8 09/29/18 08:00 Room Air 09/29/18 07:00 98.0 95 16 149/79 (102) 96 Room Air 98.0 09/29/18 03:00 98.7 105 17 102/81 (88) 96 Room Air 98.7 09/28/18 22:32 98.8 111 18 140/77 (98) 94 Room Air 98.8 09/28/18 20:00 Room Air 09/28/18 19:00 98.3 111 18 132/71 (91) 97 Room Air 98.3 09/28/18 15:59 16 95 Nasal Cannula 09/28/18 15:29 16 95 Nasal Cannula 2.0 09/28/18 15:00 98.2 101 18 137/71 (93) 97 Room Air 98.2 I & O Intake and Output 09/29/18 07:00 Intake Total 130 ml Output Total 2210 ml Balance -2080 ml Intake Oral 130 ml Output Urine Total 1850 ml Stool Total 360 ml PHYSICAL EXAM: Physical Exam: General: Pleasant, no acute distress, well groomed Eyes: conjunctiva anicteric, eyes full range of motion ENT: moist oral mucosa, normal dentition Neck: Trachea midline, no masses Respiratory: unlabored breathing, not using accessory muscles, no crackles or wheezes Cardiovascular: Regular rate and rhythm, no peripheral edema Abdomen: nontender, nondistended, no hepatosplenomegaly, no masses Skin: no rashes or skin lesions on visualized skin Psych: normal mood, affect. Alert and oriented x 3. LABS: Laboratory Tests Test 09/27/18 12:29 09/28/18 05:15 4/2/19 03:30 Sodium Level 139 mmol/L (136-145) 139 mmol/L (136-145) Potassium Level 3.4 mmol/L (3.5-5.1) 3.2 mmol/L (3.5-5.1) Chloride Level 103 mmol/L (98-107) 103 mmol/L (98-107) Carbon Dioxide Level 28 mmol/L (21-32) 28 mmol/L (21-32) Anion Gap 8 (6-14) 8 (6-14) Blood Urea Nitrogen 14 mg/dL (8-26) 7 mg/dL (8-26) Creatinine 0.9 mg/dL (0.7-1.3) 0.8 mg/dL (0.7-1.3) Estimated GFR (Cockcroft-Gault) 84.7 97.0 BUN/Creatinine Ratio 16 (6-20) Glucose Level 118 mg/dL (70-99) 95 mg/dL (70-99) Calcium Level 7.5 mg/dL (8.5-10.1) 7.4 mg/dL (8.5-10.1) Total Bilirubin 0.3 mg/dL (0.2-1.0) Aspartate Amino Transf (AST/SGOT) 31 U/L (15-37) Alanine Aminotransferase (ALT/SGPT) 25 U/L (16-63) Alkaline Phosphatase 99 U/L (46-116) Total Protein 5.3 g/dL (6.4-8.2) Albumin 1.1 g/dL (3.4-5.0) Albumin/Globulin Ratio 0.3 (1.0-1.7) White Blood Count 8.6 x10^3/uL (4.0-11.0) 8.7 x10^3/uL (4.0-11.0) Red Blood Count 3.27 x10^6/uL (4.30-5.70) 3.22 x10^6/uL (4.30-5.70) Hemoglobin 9.1 g/dL (13.0-17.5) 8.8 g/dL (13.0-17.5) Hematocrit 27.5 % (39.0-53.0) 26.8 % (39.0-53.0) Mean Corpuscular Volume 84 fL (79-100) 83 fL (79-100) Mean Corpuscular Hemoglobin 28 pg (25-35) 27 pg (25-35) Mean Corpuscular Hemoglobin Concent 33 g/dL (31-37) 33 g/dL (31-37) Red Cell Distribution Width 18.1 % (11.5-14.5) 17.9 % (11.5-14.5) Platelet Count 156 x10^3/uL (140-400) 168 x10^3/uL (140-400) Neutrophils (%) (Auto) 89 % (31-73) 89 % (31-73) Lymphocytes (%) (Auto) 7 % (24-48) 6 % (24-48) Monocytes (%) (Auto) 4 % (0-9) 4 % (0-9) Eosinophils (%) (Auto) 0 % (0-3) 0 % (0-3) Basophils (%) (Auto) 0 % (0-3) 0 % (0-3) Neutrophils # (Auto) 7.7 x10^3uL (1.8-7.7) 7.7 x10^3uL (1.8-7.7) Lymphocytes # (Auto) 0.6 x10^3/uL (1.0-4.8) 0.5 x10^3/uL (1.0-4.8) Monocytes # (Auto) 0.3 x10^3/uL (0.0-1.1) 0.4 x10^3/uL (0.0-1.1) Eosinophils # (Auto) 0.0 x10^3/uL (0.0-0.7) 0.0 x10^3/uL (0.0-0.7) Basophils # (Auto) 0.0 x10^3/uL (0.0-0.2) 0.0 x10^3/uL (0.0-0.2) Erythrocyte Sedimentation Rate 97 (0-15) Creatine Kinase 56 U/L (39-308) Segmented Neutrophils % 85 % (35-66) Band Neutrophils % 2 % (0-9) Lymphocytes % 8 % (24-48) Monocytes % 4 % (0-10) Metamyelocytes % 1 % (0-0) Toxic Granulation Mod Toxic Vacuolation Slight Platelet Estimate Adequate (ADEQUATE) Hypochromasia Slight Anisocytosis Slight Tear Drop Cells Occ Magnesium Level 1.0 mg/dL (1.8-2.4) Microbiology 09/21/18 Blood Culture - Final, Complete NO GROWTH AFTER 5 DAYS 09/21/18 Anaerobic/Aerobic Culture - Preliminary, Resulted 09/21/18 Anaerobic Culture Result 1 (PRIMITIVO) - Preliminary, Resulted 09/21/18 Antimicrobic Susceptibility - Preliminary, Resulted 09/21/18 Aerobic Culture - Final, Resulted 09/21/18 Aerobic Culture Result 1 (PRIMITIVO) - Final, Resulted 09/21/18 Gram Stain - Final, Resulted 09/21/18 Gram Stain Result 1 (PRIMITIVO) - Final, Resulted 09/21/18 Gram Stain Result 2 (PRIMITIVO) - Final, Resulted 09/21/18 Gram Stain Result 3 (PRIMITIVO) - Final, Resulted 09/21/18 Gram Stain Result 4 (PRIMITIVO) - Final, Resulted 09/21/18 Urine Culture - Final, Complete 09/21/18 Urine Culture Result 1 (PRIMITIVO) - Final, Complete 09/21/18 Anaerobic/Aerobic Culture - Final, Complete 09/21/18 Anaerobic Culture Result 1 (PRIMITIVO) - Final, Complete 09/21/18 Aerobic Culture - Final, Complete 09/21/18 Aerobic Culture Result 1 (PRIMITIVO) - Final, Complete 09/21/18 Gram Stain - Final, Complete 09/21/18 Gram Stain Result 1 (PRIMITIVO) - Final, Complete 09/21/18 Gram Stain Result 2 (PRIMITIVO) - Final, Complete 09/21/18 Gram Stain Result 3 (PRIMITIVO) - Final, Complete MEDICATIONS: Current Medications Medications (Trade) Dose Ordered Sig/[facility] Start Time Stop Time Status Last Admin Dose Admin Acetaminophen (Tylenol) 650 mg PRN Q4HRS PRN 09/21/18 14:45 09/22/18 14:44 DC Acetaminophen/ Hydrocodone Bitart (Lortab 5/325) 1 tab PRN Q4HRS PRN 09/22/18 17:30 09/24/18 15:59 1 TAB Al Hydroxide/Mg Hydroxide (Mylanta Plus Xs) 30 ml PRN Q3HRS PRN 09/22/18 17:30 Ascorbic Acid (Vitamin C) 500 mg DAILY 09/22/18 12:00 09/29/18 07:57 500 MG Bupivacaine HCl (Sensorcaine Mpf 0.5%) 30 ml STK-MED ONCE 09/22/18 14:35 09/22/18 15:35 DC Bupivacaine HCl/ Epinephrine Bitart (Sensorcain-Mpf Epi 0.5%-[id number]) 30 ml STK-MED ONCE 09/22/18 14:34 09/22/18 15:35 DC Daptomycin 480 mg/ Sodium Chloride 50 ml @ 100 mls/hr Q24H 09/23/18 14:00 09/28/18 10:16 DC 09/27/18 14:35 100 MLS/HR Dexamethasone Sodium Phosphate (Decadron) 20 mg STK-MED ONCE 09/22/18 16:00 09/22/18 16:01 DC Docusate Sodium (Colace) 100 mg BID 09/22/18 21:00 09/26/18 08:29 100 MG Fentanyl Citrate (Fentanyl 2ml Vial) 100 mcg STK-MED ONCE 09/22/18 16:30 09/22/18 16:31 DC Heparin Sodium (Porcine) (Heparin Sodium) 5,000 unit Q8HRS 09/22/18 22:00 09/23/18 13:06 DC 09/23/18 05:39 5,000 UNIT Info (Anti-Coagulation Monitoring By Pharmacy) 1 each PRN DAILY PRN 09/22/18 11:30 09/27/18 13:29 1 EACH Info (CONTRAST GIVEN -- Rx MONITORING) 1 each PRN DAILY PRN 09/22/18 07:15 09/24/18 07:14 DC Iohexol (Omnipaque 240 Mg/ml) 50 ml 1X ONCE 09/22/18 07:15 09/22/18 07:16 DC 09/22/18 07:15 50 ML Lidocaine HCl (Lidocaine Pf 2% Vial) 5 ml STK-MED ONCE 09/22/18 15:56 09/22/18 15:57 DC Linezolid (Zyvox) 600 mg BID 09/28/18 21:00 09/29/18 07:57 600 MG Linezolid/Dextrose 300 ml @ 300 mls/hr Q12HR 09/22/18 13:00 09/28/18 10:16 DC 09/28/18 08:37 300 MLS/HR Lisinopril (Prinivil) 10 mg DAILY 09/22/18 09:00 09/22/18 13:06 DC 09/22/18 11:24 10 MG Magnesium Sulfate 50 ml @ 25 mls/hr 1X ONCE 09/25/18 12:00 09/25/18 13:59 DC 09/25/18 13:43 25 MLS/HR Meropenem 500 mg/ Sodium Chloride 50 ml @ 100 mls/hr Q6HRS 09/26/18 18:00 09/29/18 05:33 100 MLS/HR Micafungin Sodium 100 mg/Dextrose 100 ml @ 100 mls/hr Q24H 09/22/18 13:00 09/28/18 14:00 100 MLS/HR Morphine Sulfate (Morphine Sulfate) 2 mg PRN Q2HR PRN 09/24/18 11:45 09/28/18 15:29 2 MG Multivitamins (Thera M Plus) 1 tab DAILY 09/22/18 12:00 09/29/18 07:57 1 TAB Naloxone HCl (Narcan) 0.1 mg PRN Q2MIN PRN 09/22/18 17:30 Ondansetron HCl (Zofran) 4 mg PRN Q6HRS PRN 09/22/18 17:30 Phenylephrine HCl (PHENYLEPHRINE in 0.9% NACL PF) 1 mg STK-MED ONCE 09/22/18 16:17 09/22/18 16:18 DC Piperacillin Sod/ Tazobactam Sod (Zosyn Per Pharmacy) 1 each PRN DAILY PRN 09/21/18 18:00 09/22/18 17:34 DC Piperacillin Sod/ Tazobactam Sod 3.375 gm/Sodium Chloride 50 ml @ 100 mls/hr Q6HRS 09/22/18 00:00 09/22/18 12:40 DC 09/22/18 05:48 100 MLS/HR Potassium Chloride (Klor-Con) 20 meq [id number] 09/28/18 08:00 09/29/18 07:57 20 MEQ Prochlorperazine Edisylate (Compazine) 5 mg PRN Q6HRS PRN 09/22/18 17:30 Propofol 20 ml @ As Directed STK-MED ONCE 09/22/18 15:56 09/22/18 15:57 DC Rivaroxaban (Xarelto) 20 mg DAILYWSUP 09/23/18 17:00 09/28/18 18:04 20 MG Sevoflurane (Ultane) 30 ml STK-MED ONCE 09/22/18 16:53 09/22/18 16:54 DC Sodium Chloride 1,000 ml @ 100 mls/hr Q10H 09/22/18 18:00 09/29/18 01:38 100 MLS/HR Sodium Chloride (Normal Saline Flush) 3 ml QSHIFT PRN 09/22/18 17:30 Vancomycin HCl (Vanco Per Pharmacy) 1 each PRN DAILY PRN 09/21/18 14:45 09/22/18 12:37 DC 09/21/18 18:36 1 EACH Vancomycin HCl (Vancomycin Trough Level) 1 each 1X ONCE 09/23/18 14:30 09/23/18 14:30 DC Vancomycin HCl 1.25 gm/Sodium Chloride 250 ml @ 166.667 mls/hr Q24H 09/22/18 15:00 09/22/18 15:00 DC ASSESSMENT & PLAN Patient's abdominal site in LLQ is not packed. I re-packed it with Iodoform gauze. I left a "tail" for removal. The penroses are in good placement. I reviewed with nursing and asked them to change packing bid for all wounds. He may need irrigation of these abscess cavities to assist healing. Overall, his cond''n is considrably improved from last week. Problem List: Problems Medical Problems: (1) Sepsis Status: Acute VANITA OLVERA MD Sep 29, 2018 11:41
[2018-09-29] MEDS: MICAFUNGIN 100 MG in IV DEXTROSE 5% 100ML 100 ML IV SCH (13:07)
[2018-09-29] MEDS ORDERED: POTASSIUM CHLORIDE 20 MEQ TABLET.ER. PO ONE (14:00)
[2018-09-29] MEDS: MAGNESIUM SULFATE 4GM 100 ML IV SCH ×2 (14:24→20:00)
[2018-09-29] MEDS: MORPHINE SULFATE 2 MG/ML VIAL. IV PRN (14:32)
[2018-09-29 15:00] VITALS: BP 145/78
--- NOTE | 2018-09-29 16:00 | NUR ---
Wound Care: Wound care follow up for wound care dressing change to scrotum. Pt dosed with pain medication by RN. Removed packing, wound cleansed and assessed. Scrotum wound s/p I&D 09/23, testicle exposed. Repacked with Iodoform 1" gauze packing and covered with ABD pads and mesh underwear. Patient coccyx is reddened but remains blanchable. Patient stating he is not turning as often as he should due to pain. Patient refusing to turn at this time. Patient is on a P-500 bed at this time. WC will follow up with patient on Friday to change scrotum and abdominal dressing. Call light in reach and bed lowered.
--- NOTE | 2018-09-29 16:24 | NUR ---
SW following pt. Spoke with ID and at this point unsure if pt will need [facility]entiary IV abx. Mari reported pt's wound care is beyond what SNF is able to do at this time. SW phoned and faxed referral to [facility] to screen if pt meets criteria for LTAC if he is not able to go SNF. Pt acceptance and admission pending. Will continue to follow.
[2018-09-29] MEDS: RIVAROXABAN 10 MG TABLET. PO SCH (16:55)
[2018-09-29 19:00] VITALS: BP 110/63
[2018-09-29] MEDS ORDERED: MAGNESIUM SULFATE 2GM 50 ML IV ONE (21:00)
[2018-09-29 23:00] VITALS: BP 132/75
[2018-09-30] MEDS: MEROPENEM 500 MG in IV NORMAL SALINE 50ML 50 ML IV SCH ×3 (00:33→12:08)
[2018-09-30] MEDS: IV 1/2 NORMAL SALINE 1,000 ML IV SCH ×2 (00:35→12:10)
[2018-09-30 03:00] VITALS: BP 125/69
[2018-09-30 07:15] VITALS: BP 127/73
[2018-09-30] MEDS: POTASSIUM CHLORIDE 20 MEQ TABLET.ER. PO SCH (07:58)
[2018-09-30] MEDS: MULTIVITAMIN with MINERAL TABLET. PO SCH (07:59)
[2018-09-30] MEDS: ASCORBIC ACID 500 MG TABLET PO SCH (07:59)
[2018-09-30 08:54] LABS: BASO % 1 % (0-3); EOS % 0 % (0-3); HEMATOCRIT 29.3 % (39.0-53.0); HEMOGLOBIN 9.5 g/dL (13.0-17.5); LYMPH # 0.5 x10^3/uL (1.0-4.8); LYMPH % 6 % (24-48); MEAN CORPUSCULAR HEMOGLOBIN 27 pg (25-35); MEAN CORPUSCULAR HGB CONC 32 g/dL (31-37); MEAN CORPUSCULAR VOLUME 84 fL (79-100); MONO # 0.4 x10^3/uL (0.0-1.1); MONO % 5 % (0-9); NEUT # 7.1 x10^3uL (1.8-7.7); NEUT % 88 % (31-73); PLATELET COUNT 159 x10^3/uL (140-400); RED CELL DISTRIBUTION WIDTH 17.9 % (11.5-14.5); WHITE BLOOD COUNT 8.1 x10^3/uL (4.0-11.0)
[2018-09-30] MEDS: DOCUSATE SODIUM 100 MG CAPSULE. PO SCH (09:00)
[2018-09-30 09:06] LABS: CALCIUM 7.9 mg/dL (8.5-10.1); CREATININE 0.8 mg/dL (0.7-1.3); POTASSIUM 3.4 mmol/L (3.5-5.1)
--- NOTE | 2018-09-30 09:11 | NUR ---
SW following pt. Pt has been accepted at [facility] pending insurance approval. Will continue to follow. Addendum: 09/30/18 at 1038 by ALMITA ROJAS Discussed with Physician.
--- NOTE | 2018-09-30 09:43 | PDOC ---
SUBJECTIVE Subjective Pt resting comfortably. Not excited about BID dressing changes but does understand the need for them. He is not walking yet. OBJECTIVE Objective Physical Exam: General appearance: Alert and Oriented Head: Normocephalic, without obvious abnormality Eyes: conjunctivae/corneas clear. PERRL, EOM's intact. Fundi benign Lungs: Regular respirations, non labored breathing Abdomen: soft, + colostomy bag in place. No masses, no organomegaly Pelvic: + scrotal swelling improved with [address] draining sero -sanguinous fluid. + Saravia catheter draining clear yellow urine. Device in good working order. Vital Signs Vital Signs Date Time Temp Pulse Resp B/P (MAP) Pulse Ox O2 Delivery O2 Flow Rate FiO2 09/30/18 08:14 Room Air 09/30/18 07:15 98.2 84 20 127/73 (91) 96 Room Air 98.2 09/30/18 03:00 98.1 86 18 125/69 (87) 98 Room Air 98.1 09/29/18 23:00 98.9 92 18 132/75 (94) 97 Room Air 98.9 09/29/18 19:30 Room Air 09/29/18 19:00 99.1 104 20 110/63 (79) 97 Room Air 99.1 09/29/18 15:25 96 Room Air 2.0 09/29/18 15:00 98.1 91 16 145/78 (100) 96 Room Air 98.1 09/29/18 14:32 Room Air 09/29/18 11:09 97.8 96 16 139/78 (98) 96 Room Air 97.8 I & O Intake and Output 09/30/18 06:59 Intake Total 1070 ml Output Total 1500 ml Balance -430 ml Intake Oral 820 ml IV Total 250 ml Output Urine Total 800 ml Stool Total 700 ml PHYSICAL EXAM Physical Exam Physical Exam: General appearance: Alert and Oriented Head: Normocephalic, without obvious abnormality Eyes: conjunctivae/corneas clear. PERRL, EOM's intact. Fundi benign Lungs: Regular respirations, non labored breathing Abdomen: soft, + colostomy bag in place. No masses, no organomegaly Pelvic: + scrotal swelling improved with [address] draining sero -sanguinous fluid. + Saravia catheter draining clear yellow urine. Device in good working order. ASSESSMENT/PLAN Assessment/Plan Discussed with RN that patient will need BID dressing changes, please make sure wound care team is aware. Continue to maintain Saravia catheter for now. Discussed with patient that he will have to be mobile before we can attempt a voiding trial. Problems: (1) Sepsis COMMENT Lab Laboratory Tests Test 09/29/18 18:20 09/30/18 08:25 Magnesium Level 2.0 mg/dL (1.8-2.4) 2.0 mg/dL (1.8-2.4) White Blood Count 8.1 x10^3/uL (4.0-11.0) Red Blood Count 3.50 x10^6/uL (4.30-5.70) Hemoglobin 9.5 g/dL (13.0-17.5) Hematocrit 29.3 % (39.0-53.0) Mean Corpuscular Volume 84 fL (79-100) Mean Corpuscular Hemoglobin 27 pg (25-35) Mean Corpuscular Hemoglobin Concent 32 g/dL (31-37) Red Cell Distribution Width 17.9 % (11.5-14.5) Platelet Count 159 x10^3/uL (140-400) Neutrophils (%) (Auto) 88 % (31-73) Lymphocytes (%) (Auto) 6 % (24-48) Monocytes (%) (Auto) 5 % (0-9) Eosinophils (%) (Auto) 0 % (0-3) Basophils (%) (Auto) 1 % (0-3) Neutrophils # (Auto) 7.1 x10^3uL (1.8-7.7) Lymphocytes # (Auto) 0.5 x10^3/uL (1.0-4.8) Monocytes # (Auto) 0.4 x10^3/uL (0.0-1.1) Eosinophils # (Auto) 0.0 x10^3/uL (0.0-0.7) Basophils # (Auto) 0.0 x10^3/uL (0.0-0.2) Sodium Level 137 mmol/L (136-145) Potassium Level 3.4 mmol/L (3.5-5.1) Chloride Level 101 mmol/L (98-107) Carbon Dioxide Level 28 mmol/L (21-32) Anion Gap 8 (6-14) Blood Urea Nitrogen 9 mg/dL (8-26) Creatinine 0.8 mg/dL (0.7-1.3) Estimated GFR (Cockcroft-Gault) 97.0 Glucose Level 110 mg/dL (70-99) Calcium Level 7.9 mg/dL (8.5-10.1) Nutrition Consultation Dietary Evaluation: Recommendations by RD: Add supplement feedings Comments: sending orange flavor lyndsey bid continue mvi and vit c per wound protocal Expected Outcomes/Goals: to meet > 75% est nutr needs- goal ongoing Malnutrition Findings: Food and Nutrition Intake (Mod: <75% est energy req 7days Weight Status: Appropriate Problem Qualifiers (1) Sepsis: Sepsis type: sepsis due to unspecified organism Qualified Codes: A41.9 - Sepsis, unspecified organism JOSE COLON APRN Sep 30, 2018 09:43
--- NOTE | 2018-09-30 09:44 | PDOC ---
PROGRESS NOTES Chief Complaint Chief Complaint Sepsis with elevated lactate 7, now normal Necrotizing fasciitis Scrotal edema status post IND OR 09/22/18 by urology Closed anion gap Renal failure, acute - improving Hyponatremia 134-very dry, IMPROVING SIGNIF Hypokalemia Tachycardia 120s to 1300 sinus, RESOLVED Leukocytosis resolved Bilateral scrotal swelling improving History recent UTI-a week ago Colon CA on chemotherapy status post colon Resection with indwelling colostomy Ventral hernia mesh wound, infected Indwelling colostomy bag right History of Present Illness History of Present Illness 63-year-old male presented to the ER on 09/21/2018 with complaints of generalized weakness and not feeling well. The patient has history of colon cancer, receiving chemotherapy monthly and also has infected mesh for which he has been following with Dr. Clarke at [facility], but since he has been on chemo they are not able to remove the infected mesh. The patient has drainage off and on. He also had UA, which showed pyuria. Lactic acid was high. He had leukocytosis. He had decreased p.o. intake and had a decrease in the urine output. He had been on Bactrim about 4 weeks ago when he presented to urgent care at [facility]. He has not been seen at for the last 4-5 months. He was started on empiric vanc-->dapto and Zosyn, no wsp I&D 08/2618 by urology requiring intense wound care with daily irrigations, ID has changed to merrem, zyvox and micafungin. Feeling alright, Pain controlled, Appetite fair, throat better today. Denies F/C /S/N/V/D/aches. Drains and prather still in place. He is amenable to discharge to LTAC as I have discussed with wound care his wounds are extremely complicated will require 24/7 care and at least 2x daily dressing changes. Plan: Cont micafungin and merrem, I have d/w ID, Dr. Rothman Needs complicated wound care Referral to LTAC for discharge Vitals Vitals Vital Signs Date Time Temp Pulse Resp B/P (MAP) Pulse Ox O2 Delivery O2 Flow Rate FiO2 09/30/18 08:14 Room Air 09/30/18 07:15 98.2 84 20 127/73 (91) 96 98.2 09/29/18 15:25 2.0 Physical Exam Physical Exam General: Alert, Oriented X3, Cooperative, No acute distress Heart: Regular rate, Normal S1, Normal S2, No murmurs Lungs: Clear Abdomen: Soft, No tenderness, Other (Nondistended, soft, Ostomy. wound- bandaged Prather. Scrotum currently bandaged - less edema and erythema/drainage. 3 penroses) Extremities: No edema, Normal pulses, No tenderness/swelling Skin: No rashes, No breakdown, Other (Wound site is clean, dry, and intact) Labs LABS Laboratory Tests Test 09/29/18 18:20 09/30/18 08:25 Magnesium Level 2.0 mg/dL (1.8-2.4) 2.0 mg/dL (1.8-2.4) White Blood Count 8.1 x10^3/uL (4.0-11.0) Red Blood Count 3.50 x10^6/uL (4.30-5.70) Hemoglobin 9.5 g/dL (13.0-17.5) Hematocrit 29.3 % (39.0-53.0) Mean Corpuscular Volume 84 fL (79-100) Mean Corpuscular Hemoglobin 27 pg (25-35) Mean Corpuscular Hemoglobin Concent 32 g/dL (31-37) Red Cell Distribution Width 17.9 % (11.5-14.5) Platelet Count 159 x10^3/uL (140-400) Neutrophils (%) (Auto) 88 % (31-73) Lymphocytes (%) (Auto) 6 % (24-48) Monocytes (%) (Auto) 5 % (0-9) Eosinophils (%) (Auto) 0 % (0-3) Basophils (%) (Auto) 1 % (0-3) Neutrophils # (Auto) 7.1 x10^3uL (1.8-7.7) Lymphocytes # (Auto) 0.5 x10^3/uL (1.0-4.8) Monocytes # (Auto) 0.4 x10^3/uL (0.0-1.1) Eosinophils # (Auto) 0.0 x10^3/uL (0.0-0.7) Basophils # (Auto) 0.0 x10^3/uL (0.0-0.2) Sodium Level 137 mmol/L (136-145) Potassium Level 3.4 mmol/L (3.5-5.1) Chloride Level 101 mmol/L (98-107) Carbon Dioxide Level 28 mmol/L (21-32) Anion Gap 8 (6-14) Blood Urea Nitrogen 9 mg/dL (8-26) Creatinine 0.8 mg/dL (0.7-1.3) Estimated GFR (Cockcroft-Gault) 97.0 Glucose Level 110 mg/dL (70-99) Calcium Level 7.9 mg/dL (8.5-10.1) Assessment and Plan Assessmemt and Plan Problems Medical Problems: (1) Sepsis Status: Acute Comment Review of Relevant I have reviewed the following items renetta (where applicable) has been applied. Labs Laboratory Tests Test 09/29/18 03:30 09/29/18 18:20 09/30/18 08:25 White Blood Count 8.7 x10^3/uL (4.0-11.0) 8.1 x10^3/uL (4.0-11.0) Red Blood Count 3.22 x10^6/uL (4.30-5.70) 3.50 x10^6/uL (4.30-5.70) Hemoglobin 8.8 g/dL (13.0-17.5) 9.5 g/dL (13.0-17.5) Hematocrit 26.8 % (39.0-53.0) 29.3 % (39.0-53.0) Mean Corpuscular Volume 83 fL (79-100) 84 fL (79-100) Mean Corpuscular Hemoglobin 27 pg (25-35) 27 pg (25-35) Mean Corpuscular Hemoglobin Concent 33 g/dL (31-37) 32 g/dL (31-37) Red Cell Distribution Width 17.9 % (11.5-14.5) 17.9 % (11.5-14.5) Platelet Count 168 x10^3/uL (140-400) 159 x10^3/uL (140-400) Neutrophils (%) (Auto) 89 % (31-73) 88 % (31-73) Lymphocytes (%) (Auto) 6 % (24-48) 6 % (24-48) Monocytes (%) (Auto) 4 % (0-9) 5 % (0-9) Eosinophils (%) (Auto) 0 % (0-3) 0 % (0-3) Basophils (%) (Auto) 0 % (0-3) 1 % (0-3) Neutrophils # (Auto) 7.7 x10^3uL (1.8-7.7) 7.1 x10^3uL (1.8-7.7) Lymphocytes # (Auto) 0.5 x10^3/uL (1.0-4.8) 0.5 x10^3/uL (1.0-4.8) Monocytes # (Auto) 0.4 x10^3/uL (0.0-1.1) 0.4 x10^3/uL (0.0-1.1) Eosinophils # (Auto) 0.0 x10^3/uL (0.0-0.7) 0.0 x10^3/uL (0.0-0.7) Basophils # (Auto) 0.0 x10^3/uL (0.0-0.2) 0.0 x10^3/uL (0.0-0.2) Segmented Neutrophils % 85 % (35-66) Band Neutrophils % 2 % (0-9) Lymphocytes % 8 % (24-48) Monocytes % 4 % (0-10) Metamyelocytes % 1 % (0-0) Toxic Granulation Mod Toxic Vacuolation Slight Platelet Estimate Adequate (ADEQUATE) Hypochromasia Slight Anisocytosis Slight Tear Drop Cells Occ Sodium Level 139 mmol/L (136-145) 137 mmol/L (136-145) Potassium Level 3.2 mmol/L (3.5-5.1) 3.4 mmol/L (3.5-5.1) Chloride Level 103 mmol/L (98-107) 101 mmol/L (98-107) Carbon Dioxide Level 28 mmol/L (21-32) 28 mmol/L (21-32) Anion Gap 8 (6-14) 8 (6-14) Blood Urea Nitrogen 7 mg/dL (8-26) 9 mg/dL (8-26) Creatinine 0.8 mg/dL (0.7-1.3) 0.8 mg/dL (0.7-1.3) Estimated GFR (Cockcroft-Gault) 97.0 97.0 Glucose Level 95 mg/dL (70-99) 110 mg/dL (70-99) Calcium Level 7.4 mg/dL (8.5-10.1) 7.9 mg/dL (8.5-10.1) Magnesium Level 1.0 mg/dL (1.8-2.4) 2.0 mg/dL (1.8-2.4) 2.0 mg/dL (1.8-2.4) Laboratory Tests Test 09/29/18 18:20 09/30/18 08:25 Magnesium Level 2.0 mg/dL (1.8-2.4) 2.0 mg/dL (1.8-2.4) White Blood Count 8.1 x10^3/uL (4.0-11.0) Red Blood Count 3.50 x10^6/uL (4.30-5.70) Hemoglobin 9.5 g/dL (13.0-17.5) Hematocrit 29.3 % (39.0-53.0) Mean Corpuscular Volume 84 fL (79-100) Mean Corpuscular Hemoglobin 27 pg (25-35) Mean Corpuscular Hemoglobin Concent 32 g/dL (31-37) Red Cell Distribution Width 17.9 % (11.5-14.5) Platelet Count 159 x10^3/uL (140-400) Neutrophils (%) (Auto) 88 % (31-73) Lymphocytes (%) (Auto) 6 % (24-48) Monocytes (%) (Auto) 5 % (0-9) Eosinophils (%) (Auto) 0 % (0-3) Basophils (%) (Auto) 1 % (0-3) Neutrophils # (Auto) 7.1 x10^3uL (1.8-7.7) Lymphocytes # (Auto) 0.5 x10^3/uL (1.0-4.8) Monocytes # (Auto) 0.4 x10^3/uL (0.0-1.1) Eosinophils # (Auto) 0.0 x10^3/uL (0.0-0.7) Basophils # (Auto) 0.0 x10^3/uL (0.0-0.2) Sodium Level 137 mmol/L (136-145) Potassium Level 3.4 mmol/L (3.5-5.1) Chloride Level 101 mmol/L (98-107) Carbon Dioxide Level 28 mmol/L (21-32) Anion Gap 8 (6-14) Blood Urea Nitrogen 9 mg/dL (8-26) Creatinine 0.8 mg/dL (0.7-1.3) Estimated GFR (Cockcroft-Gault) 97.0 Glucose Level 110 mg/dL (70-99) Calcium Level 7.9 mg/dL (8.5-10.1) Microbiology 09/21/18 Blood Culture - Final, Complete NO GROWTH AFTER 5 DAYS 09/21/18 Anaerobic/Aerobic Culture - Final, Resulted 09/21/18 Anaerobic Culture Result 1 (PRIMITIVO) - Final, Resulted 09/21/18 Antimicrobic Susceptibility - Preliminary, Resulted 09/21/18 Aerobic Culture - Final, Resulted 09/21/18 Aerobic Culture Result 1 (PRIMITIVO) - Final, Resulted 09/21/18 Gram Stain - Final, Resulted 09/21/18 Gram Stain Result 1 (PRIMITIVO) - Final, Resulted 09/21/18 Gram Stain Result 2 (PRIMITIVO) - Final, Resulted 09/21/18 Gram Stain Result 3 (PRIMITIVO) - Final, Resulted 09/21/18 Gram Stain Result 4 (PRIMITIVO) - Final, Resulted 09/21/18 Urine Culture - Final, Complete 09/21/18 Urine Culture Result 1 (PRIMITIVO) - Final, Complete 09/21/18 Anaerobic/Aerobic Culture - Final, Complete 09/21/18 Anaerobic Culture Result 1 (PRIMITIVO) - Final, Complete 09/21/18 Aerobic Culture - Final, Complete 09/21/18 Aerobic Culture Result 1 (PRIMITIVO) - Final, Complete 09/21/18 Gram Stain - Final, Complete 09/21/18 Gram Stain Result 1 (PRIMITIVO) - Final, Complete 09/21/18 Gram Stain Result 2 (PRIMITIVO) - Final, Complete 09/21/18 Gram Stain Result 3 (PRIMITIVO) - Final, Complete Medications Current Medications Sodium Chloride 1,000 ml @ 1,000 mls/hr 1X ONCE IV Last administered on at 13:56; Start 09/21/18 at 14:00; Stop 09/21/18 at 14:59; Status DC Piperacillin Sod/ Tazobactam Sod 3.375 gm/Sodium Chloride 50 ml @ 100 mls/hr 1X ONCE IV Last administered on 09/21/18at 14:59; Start 09/21/18 at 14:30; Stop 09/21/18 at 14:59; Status DC Sodium Chloride 1,000 ml @ 1,000 mls/hr 1X ONCE IV Last administered on at 14:55; Start 09/21/18 at 14:30; Stop 09/21/18 at 15:29; Status DC Ondansetron HCl (Zofran) 4 mg PRN Q8HRS PRN IV NAUSEA/VOMITING; Start 09/21/18 at 14:45; Stop 09/21/18 at 16:31; Status DC Sodium Chloride 1,000 ml @ 150 mls/hr Q6H40M IV Last administered on at 11:24; Start 09/21/18 at 14:40; Stop 09/22/18 at 14:39; Status DC Acetaminophen (Tylenol) 650 mg PRN Q4HRS PRN PO FEVER; Start 09/21/18 at 14:45 ; Stop 09/22/18 at 14:44; Status DC Vancomycin HCl 250 ml @ 250 mls/hr 1X ONCE IV ; Start 09/21/18 at 14:45; Stop 09/21/18 at 15:44; Status UNV Vancomycin HCl (Vanco Per Pharmacy) 1 each PRN DAILY PRN MC SEE COMMENTS Last administered on 09/21/18at 18:36; Start 09/21/18 at 14:45; Stop 09/22/18 at 12:37 ; Status DC Vancomycin HCl 1.25 gm/Sodium Chloride 250 ml @ 166.667 mls/hr 1X ONCE IV Last administered on 09/21/18at 15:34; Start 09/21/18 at 15:00; Stop 09/21/18 at 16:29; Status DC Ondansetron HCl (Zofran) 4 mg PRN Q6HRS PRN IV NAUSEA/VOMITING; Start 09/21/18 at 16:45; Stop 09/22/18 at 17:35; Status DC Piperacillin Sod/ Tazobactam Sod (Zosyn Per Pharmacy) 1 each PRN DAILY PRN MC SEE COMMENTS; Start 09/21/18 at 18:00; Stop 09/22/18 at 17:34; Status DC Lisinopril (Prinivil) 10 mg DAILY PO Last administered on 09/22/18at 11:24; Start 09/22/18 at 09:00; Stop 09/22/18 at 13:06; Status DC Piperacillin Sod/ Tazobactam Sod 3.375 gm/Sodium Chloride 50 ml @ 100 mls/hr Q6HRS IV Last administered on 09/22/18at 05:48; Start 09/22/18 at 00:00; Stop at 12:40; Status DC Heparin Sodium (Porcine) (Heparin Sodium) 5,000 unit Q8HRS SQ Last administered on 09/22/18at 05:54; Start 09/21/18 at 18:00; Stop 09/22/18 at 11:15 ; Status DC Vancomycin HCl 1.25 gm/Sodium Chloride 250 ml @ 166.667 mls/hr Q24H IV ; Start 09/22/18 at 15:00; Stop 09/22/18 at 15:00; Status DC Vancomycin HCl (Vancomycin Trough Level) 1 each 1X ONCE MC ; Start 09/23/18 at 14:30; Stop 09/23/18 at 14:30; Status DC Iohexol (Omnipaque 240 Mg/ml) 50 ml 1X ONCE PO Last administered on 09/22/18at 07:15; Start 09/22/18 at 07:15; Stop 09/22/18 at 07:16; Status DC Info (CONTRAST GIVEN -- Rx MONITORING) 1 each PRN DAILY PRN MC SEE COMMENTS; Start 09/22/18 at 07:15; Stop 09/24/18 at 07:14; Status DC Ascorbic Acid (Vitamin C) 500 mg DAILY PO Last administered on 09/30/18at 07:59; Start 09/22/18 at 12:00 Multivitamins (Thera M Plus) 1 tab DAILY PO Last administered on 09/30/18at 07:59 ; Start 09/22/18 at 12:00 Rivaroxaban (Xarelto) 15 mg DAILYWSUP PO ; Start 09/22/18 at 17:00; Stop at 14:17; Status DC Info (Anti-Coagulation Monitoring By Pharmacy) 1 each PRN DAILY PRN MC SEE COMMENTS Last administered on 09/27/18at 13:29; Start 09/22/18 at 11:30 Micafungin Sodium 100 mg/Dextrose 100 ml @ 100 mls/hr Q24H IV Last administered on 09/29/18at 13:07; Start 09/22/18 at 13:00 Linezolid/Dextrose 300 ml @ 300 mls/hr Q12HR IV Last administered on 09/28/18at 08:37; Start 09/22/18 at 13:00; Stop 09/28/18 at 10:16; Status DC Daptomycin 480 mg/ Sodium Chloride 50 ml @ 100 mls/hr Q48H IV Last administered on 09/22/18at 15:48; Start 09/22/18 at 14:00; Stop 09/23/18 at 12:55 ; Status DC Meropenem 500 mg/ Sodium Chloride 50 ml @ 100 mls/hr Q8HRS IV Last administered on 09/26/18at 05:53; Start 09/22/18 at 14:00; Stop 09/26/18 at 13:54 ; Status DC Bupivacaine HCl/ Epinephrine Bitart (Sensorcain-Mpf Epi 0.5%-1:[id number]) 30 ml STK -MED ONCE .ROUTE ; Start 09/22/18 at 14:34; Stop 09/22/18 at 15:35; Status DC Bupivacaine HCl (Sensorcaine Mpf 0.5%) 30 ml STK-MED ONCE .ROUTE ; Start at 14:35; Stop 09/22/18 at 15:35; Status DC Propofol 20 ml @ As Directed STK-MED ONCE IV ; Start 09/22/18 at 15:56; Stop at 15:57; Status DC Lidocaine HCl (Lidocaine Pf 2% Vial) 5 ml STK-MED ONCE .ROUTE ; Start 09/22/18 at 15:56; Stop 09/22/18 at 15:57; Status DC Dexamethasone Sodium Phosphate (Decadron) 20 mg STK-MED ONCE .ROUTE ; Start at 16:00; Stop 09/22/18 at 16:01; Status DC Ondansetron HCl (Zofran) 4 mg STK-MED ONCE .ROUTE ; Start 09/22/18 at 16:00; Stop 09/22/18 at 16:01; Status DC Phenylephrine HCl (PHENYLEPHRINE in 0.9% NACL PF) 1 mg STK-MED ONCE IV ; Start 09/22/18 at 16:17; Stop 09/22/18 at 16:18; Status DC Fentanyl Citrate (Fentanyl 2ml Vial) 100 mcg STK-MED ONCE .ROUTE ; Start at 16:30; Stop 09/22/18 at 16:31; Status DC Sevoflurane (Ultane) 30 ml STK-MED ONCE IH ; Start 09/22/18 at 16:53; Stop 09/22 at 16:54; Status DC Al Hydroxide/Mg Hydroxide (Mylanta Plus Xs) 30 ml PRN Q3HRS PRN PO HEARTBURN / GAS; Start 09/22/18 at 17:30 Naloxone HCl (Narcan) 0.1 mg PRN Q2MIN PRN IV SEE COMMENTS; Start 09/22/18 at 17:30 Heparin Sodium (Porcine) (Heparin Sodium) 5,000 unit Q8HRS SQ Last administered on 09/23/18at 05:39; Start 09/22/18 at 22:00; Stop 09/23/18 at 13:06 ; Status DC Sodium Chloride (Normal Saline Flush) 3 ml QSHIFT PRN IV AFTER MEDS AND BLOOD DRAWS; Start 09/22/18 at 17:30 Sodium Chloride 1,000 ml @ 100 mls/hr Q10H IV Last administered on 09/30/18at 00 :35; Start 09/22/18 at 18:00 Acetaminophen/ Hydrocodone Bitart (Lortab 5/325) 1 tab PRN Q4HRS PRN PO MILD PAIN Last administered on 09/24/18at 15:59; Start 09/22/18 at 17:30 Ondansetron HCl (Zofran) 4 mg PRN Q6HRS PRN IV NAUESA, 1ST CHOICE; Start at 17:30 Prochlorperazine Edisylate (Compazine) 5 mg PRN Q6HRS PRN IV N/V, 2nd Choice, MR X1; Start 09/22/18 at 17:30 Docusate Sodium (Colace) 100 mg BID PO Last administered on 09/26/18at 08:29; Start 09/22/18 at 21:00 Daptomycin 480 mg/ Sodium Chloride 50 ml @ 100 mls/hr Q24H IV Last administered on 09/27/18at 14:35; Start 09/23/18 at 14:00; Stop 09/28/18 at 10:16 ; Status DC Rivaroxaban (Xarelto) 20 mg DAILYWSUP PO Last administered on 09/29/18at 16:55; Start 09/23/18 at 17:00 Morphine Sulfate (Morphine Sulfate) 2 mg PRN Q2HR PRN IV PAIN Last administered on 09/29/18 14:32; Start 09/24/18 at 11:45 Magnesium Sulfate 50 ml @ 25 mls/hr 1X ONCE IV Last administered on 09/25/18at 13:43; Start 09/25/18 at 12:00; Stop 09/25/18 at 13:59; Status DC Meropenem 500 mg/ Sodium Chloride 50 ml @ 100 mls/hr Q6HRS IV Last administered on 09/30/18 05:55; Start 09/26/18 at 18:00 Potassium Chloride (Klor-Con) 40 meq 1X ONCE PO Last administered on at 16:26; Start 09/27/18 at 15:15; Stop 09/27/18 at 15:16; Status DC Potassium Chloride (Klor-Con) 20 meq DAILYWBKFT PO Last administered on at 07:58; Start 09/28/18 at 08:00 Linezolid (Zyvox) 600 mg BID PO Last administered on 09/29/18 07:57; Start 09/28 at 21:00; Stop 09/29/18 at 11:40; Status DC Magnesium Sulfate/ Dextrose 100 ml @ 25 mls/hr Q4HRS IV Last administered on at 14:24; Start 09/29/18 at 16:00; Stop 09/29/18 at 20:17; Status DC Potassium Chloride (Klor-Con) 40 meq 1X ONCE PO Last administered on 09/29/18at 14:19; Start 09/29/18 at 14:00; Stop 09/29/18 at 14:06; Status DC Magnesium Sulfate 50 ml @ 25 mls/hr 1X ONCE IV Last administered on 09/29/18at 21:17; Start 09/29/18 at 21:00; Stop 09/29/18 at 22:59; Status DC Active Scripts Active Potassium Chloride 20 Meq Tab.er.prt 1 Tab PO DAILY Reported Lisinopril 20 Mg Tablet 10 Mg PO DAILY Xarelto (Rivaroxaban) 20 Mg Tablet 20 Mg PO DAILY Vitals/I & O Vital Sign - Last 24 Hours 09/29/18 09/29/18 09/29/18 09/29/18 11:09 14:32 15:00 15:25 Temp 97.8 98.1 97.8 98.1 Pulse 96 91 Resp 16 16 B/P (MAP) 139/78 (98) 145/78 (100) Pulse Ox 96 96 96 O2 Delivery Room Air Room Air Room Air Room Air O2 Flow Rate 2.0 09/29/18 09/29/18 09/29/18 09/30/18 19:00 19:30 23:00 03:00 Temp 99.1 98.9 98.1 99.1 98.9 98.1 Pulse 104 92 86 Resp 20 18 18 B/P (MAP) 110/63 (79) 132/75 (94) 125/69 (87) Pulse Ox 97 97 98 O2 Delivery Room Air Room Air Room Air Room Air 09/30/18 09/30/18 07:15 08:14 Temp 98.2 98.2 Pulse 84 Resp 20 B/P (MAP) 127/73 (91) Pulse Ox 96 O2 Delivery Room Air Room Air Intake and Output 09/29/18 09/29/18 09/30/18 14:59 22:59 06:59 Intake Total 150 ml 420 ml 500 ml Output Total 750 ml 200 ml 550 ml Balance -600 ml 220 ml -50 ml Nutrition Consultation Dietary Evaluation: Recommendations by RD: Add supplement feedings Comments: sending orange flavor lyndsey bid continue mvi and vit c per wound protocal Expected Outcomes/Goals: to meet > 75% est nutr needs- goal ongoing Malnutrition Findings: Food and Nutrition Intake (Mod: <75% est energy req 7days Weight Status: Appropriate BELTRAN SHARMA MD Sep 30, 2018 09:44
[2018-09-30] MEDS ORDERED: POTASSIUM CHLORIDE 20 MEQ/15 ML ORAL LIQUID. PEG ONE (09:45)
[2018-09-30] MEDS: POTASSIUM CHLORIDE 10MEQ 100 ML IV SCH ×2 (10:16→14:36)
[2018-09-30 11:05] VITALS: BP 141/73
--- NOTE | 2018-09-30 11:35 | PDOC ---
Infectious Disease Note Subjective Subjective Feeling alright Pain controlled - dressing changes now BID Appetite fair Denies F/C/S/N/V/D/aches Vital Sign Vital Signs Vital Signs Date Time Temp Pulse Resp B/P (MAP) Pulse Ox O2 Delivery O2 Flow Rate FiO2 09/30/18 11:05 98.8 92 18 141/73 (95) 95 Room Air 98.8 09/29/18 15:25 2.0 Physical Exam PHYSICAL EXAM GENERAL: Propped up in bed, alert, NAD HEENT: Oral mucosa dry LUNGS: Clear bilaterally. HEART: S1, S2 ABDOMEN: Nondistended, soft, Ostomy. wound-bandaged : Saravia. Scrotum currently bandaged - less edema and erythema/drainage. 3 penroses EXTREMITIES: No edema. No cyanosis. SKIN: No rash VENDOR MANAGEMENT CONSULTANT: Alert and responds appropriately PIV Labs Lab Laboratory Tests Test 09/29/18 18:20 09/30/18 08:25 Magnesium Level 2.0 mg/dL (1.8-2.4) 2.0 mg/dL (1.8-2.4) White Blood Count 8.1 x10^3/uL (4.0-11.0) Red Blood Count 3.50 x10^6/uL (4.30-5.70) Hemoglobin 9.5 g/dL (13.0-17.5) Hematocrit 29.3 % (39.0-53.0) Mean Corpuscular Volume 84 fL (79-100) Mean Corpuscular Hemoglobin 27 pg (25-35) Mean Corpuscular Hemoglobin Concent 32 g/dL (31-37) Red Cell Distribution Width 17.9 % (11.5-14.5) Platelet Count 159 x10^3/uL (140-400) Neutrophils (%) (Auto) 88 % (31-73) Lymphocytes (%) (Auto) 6 % (24-48) Monocytes (%) (Auto) 5 % (0-9) Eosinophils (%) (Auto) 0 % (0-3) Basophils (%) (Auto) 1 % (0-3) Neutrophils # (Auto) 7.1 x10^3uL (1.8-7.7) Lymphocytes # (Auto) 0.5 x10^3/uL (1.0-4.8) Monocytes # (Auto) 0.4 x10^3/uL (0.0-1.1) Eosinophils # (Auto) 0.0 x10^3/uL (0.0-0.7) Basophils # (Auto) 0.0 x10^3/uL (0.0-0.2) Sodium Level 137 mmol/L (136-145) Potassium Level 3.4 mmol/L (3.5-5.1) Chloride Level 101 mmol/L (98-107) Carbon Dioxide Level 28 mmol/L (21-32) Anion Gap 8 (6-14) Blood Urea Nitrogen 9 mg/dL (8-26) Creatinine 0.8 mg/dL (0.7-1.3) Estimated GFR (Cockcroft-Gault) 97.0 Glucose Level 110 mg/dL (70-99) Calcium Level 7.9 mg/dL (8.5-10.1) Micro Microbiology 09/21/18 Blood Culture - Final, Complete NO GROWTH AFTER 5 DAYS 09/21/18 Anaerobic/Aerobic Culture - Preliminary, Resulted 09/21/18 Anaerobic Culture Result 1 (PRIMITIVO) - Preliminary, Resulted 09/21/18 Aerobic Culture - Final, Resulted 09/21/18 Aerobic Culture Result 1 (PRIMITIVO) - Final, Resulted 09/21/18 Gram Stain - Final, Resulted 09/21/18 Gram Stain Result 1 (PRIMITIVO) - Final, Resulted 09/21/18 Gram Stain Result 2 (PRIMITIVO) - Final, Resulted 09/21/18 Gram Stain Result 3 (PRIMITIVO) - Final, Resulted 09/21/18 Gram Stain Result 4 (PRIMITIVO) - Final, Resulted 09/21/18 Urine Culture - Final, Complete 09/21/18 Urine Culture Result 1 (PRIMITIVO) - Final, Complete 09/21/18 Anaerobic/Aerobic Culture - Preliminary, Resulted 09/21/18 Anaerobic Culture Result 1 (PRIMITIVO) - Preliminary, Resulted 09/21/18 Aerobic Culture - Final, Resulted 09/21/18 Aerobic Culture Result 1 (PRIMITIVO) - Final, Resulted 09/21/18 Gram Stain - Final, Resulted 09/21/18 Gram Stain Result 1 (PRIMITIVO) - Final, Resulted 09/21/18 Gram Stain Result 2 (PRIMITIVO) - Final, Resulted 09/21/18 Gram Stain Result 3 (PRIMITIVO) - Final, Resulted Objective Assessment Severe sepsis source , improving Left inguinal, Scrotal cellulitis/abscess s/p I and D 09/22. CULTS GNR, GPC, GPR. growth of yeast/Prevotella so far. final ID and PRIMITIVO pending still Leucocytosis source improving Abdominal hernia with infected mesh with purulence, needs removal but on hold per Dr Clarke at [facility] due to immunosuppression. GPC and GNR - He will need f/u after discharge at Colon cancer on chemo Immunosuppression Urinary retention, Saravia in place THAD, improved Plan Plan of Care D/c Daptomycin 09/28/Zyvox 09/22 - 09/29 D/w micro this am 09/30 and no + cults Cont Merrem and micafungin f/u cultures so far neg Gen surgery following, Urology following ENW VALDEZ MD Sep 30, 2018 11:35
--- NOTE | 2018-09-30 13:16 | NUR ---
SW requested [employer] to pursue auth for LTAC. Insurance auth pending. Discussed with Physician and RN.
[2018-09-30] MEDS: MICAFUNGIN 100 MG in IV DEXTROSE 5% 100ML 100 ML IV SCH (13:17)
--- NOTE | 2018-09-30 14:30 | SNU/HH DC ---
DISCHARGE ORDERS DISCHARGE INFORMATION: DISCHARGE DATE: Sep 30, 2018 FINAL DIAGNOSIS Problems Medical Problems: (1) Sepsis Status: Acute CONDITION ON DISCHARGE: Stable CODE STATUS: Code Status: Full LTAC: ADMIT TO LTAC: Yes POST DISCHARGE ORDERS: ACTIVITY ORDERS: Activity as tolerated WEIGHT BEARING STATUS: As tolerated BATHING ORDERS: No Tub Bath until see Dr. SCHILLING AFTER DISCHARGE: Regular WOUND/INCISION CARE: Change dressing OTHER WOUND INSTRUCTIONS: Dressing changes and irrigation BID - Consult with Dr. Mcnamara [facility] [place] ORDERS: MERREM 500mg Q8 hours and Micafungin CHECKS AFTER DISCHARGE: CHECKS AFTER DISCHARGE: Check blood press - daily, Check your Temp as needed, Weigh Yourself Daily FOLLOW-UP: PHYSICIAN FOLLOW-UP: Dr. Rothman - DEBBI TREATMENT/EQUIPMENT ORDERS: ADAPTIVE EQUIPMENT NEEDED: None INFUSION EQUIPMENT NEEDED: IV Line Physical Therapy For: Evalulation/Treatment Occupational Therapy For: Evaluation/Treatment DISCHARGE MEDICATIONS: Home Meds Active Scripts Potassium Chloride (POTASSIUM CHLORIDE) 20 Meq Tab.er.prt, 1 TAB PO DAILY, #15 TAB 0 Refills Prov:SUSANA CLOUD MD 02/07/15 Reported Medications Lisinopril (LISINOPRIL) 20 Mg Tablet, 10 MG PO DAILY for hypertension 09/21/18 Rivaroxaban (XARELTO) 20 Mg Tablet, 20 MG PO DAILY for anticoagulant 09/21/18 BELTRAN SHARMA MD Sep 30, 2018 14:30
--- NOTE | 2018-09-30 14:34 | PDOC3 ---
Discharge Summary Visit Information Date of Admission: Sep 21, 2018 Date of Discharge: Sep 30, 2018 Admitting Diagnosis: Severe sepsis Final Diagnosis Problems Medical Problems: (1) Sepsis Status: Acute Brief Hospital Course Allergies Allergies Coded Allergies Type Severity Reaction Last Updated Verified No Known Drug Allergies 01/12/15 No Vital Signs Vital Signs Date Time Temp Pulse Resp B/P (MAP) Pulse Ox O2 Delivery O2 Flow Rate FiO2 09/30/18 11:05 98.8 92 18 141/73 (95) 95 Room Air 98.8 09/29/18 15:25 2.0 Lab Results Laboratory Tests Test 09/29/18 03:30 09/29/18 18:20 09/30/18 08:25 White Blood Count 8.7 x10^3/uL (4.0-11.0) 8.1 x10^3/uL (4.0-11.0) Red Blood Count 3.22 x10^6/uL (4.30-5.70) 3.50 x10^6/uL (4.30-5.70) Hemoglobin 8.8 g/dL (13.0-17.5) 9.5 g/dL (13.0-17.5) Hematocrit 26.8 % (39.0-53.0) 29.3 % (39.0-53.0) Mean Corpuscular Volume 83 fL (79-100) 84 fL (79-100) Mean Corpuscular Hemoglobin 27 pg (25-35) 27 pg (25-35) Mean Corpuscular Hemoglobin Concent 33 g/dL (31-37) 32 g/dL (31-37) Red Cell Distribution Width 17.9 % (11.5-14.5) 17.9 % (11.5-14.5) Platelet Count 168 x10^3/uL (140-400) 159 x10^3/uL (140-400) Neutrophils (%) (Auto) 89 % (31-73) 88 % (31-73) Lymphocytes (%) (Auto) 6 % (24-48) 6 % (24-48) Monocytes (%) (Auto) 4 % (0-9) 5 % (0-9) Eosinophils (%) (Auto) 0 % (0-3) 0 % (0-3) Basophils (%) (Auto) 0 % (0-3) 1 % (0-3) Neutrophils # (Auto) 7.7 x10^3uL (1.8-7.7) 7.1 x10^3uL (1.8-7.7) Lymphocytes # (Auto) 0.5 x10^3/uL (1.0-4.8) 0.5 x10^3/uL (1.0-4.8) Monocytes # (Auto) 0.4 x10^3/uL (0.0-1.1) 0.4 x10^3/uL (0.0-1.1) Eosinophils # (Auto) 0.0 x10^3/uL (0.0-0.7) 0.0 x10^3/uL (0.0-0.7) Basophils # (Auto) 0.0 x10^3/uL (0.0-0.2) 0.0 x10^3/uL (0.0-0.2) Segmented Neutrophils % 85 % (35-66) Band Neutrophils % 2 % (0-9) Lymphocytes % 8 % (24-48) Monocytes % 4 % (0-10) Metamyelocytes % 1 % (0-0) Toxic Granulation Mod Toxic Vacuolation Slight Platelet Estimate Adequate (ADEQUATE) Hypochromasia Slight Anisocytosis Slight Tear Drop Cells Occ Sodium Level 139 mmol/L (136-145) 137 mmol/L (136-145) Potassium Level 3.2 mmol/L (3.5-5.1) 3.4 mmol/L (3.5-5.1) Chloride Level 103 mmol/L (98-107) 101 mmol/L (98-107) Carbon Dioxide Level 28 mmol/L (21-32) 28 mmol/L (21-32) Anion Gap 8 (6-14) 8 (6-14) Blood Urea Nitrogen 7 mg/dL (8-26) 9 mg/dL (8-26) Creatinine 0.8 mg/dL (0.7-1.3) 0.8 mg/dL (0.7-1.3) Estimated GFR (Cockcroft-Gault) 97.0 97.0 Glucose Level 95 mg/dL (70-99) 110 mg/dL (70-99) Calcium Level 7.4 mg/dL (8.5-10.1) 7.9 mg/dL (8.5-10.1) Magnesium Level 1.0 mg/dL (1.8-2.4) 2.0 mg/dL (1.8-2.4) 2.0 mg/dL (1.8-2.4) Laboratory Tests Test 09/29/18 18:20 09/30/18 08:25 Magnesium Level 2.0 mg/dL (1.8-2.4) 2.0 mg/dL (1.8-2.4) White Blood Count 8.1 x10^3/uL (4.0-11.0) Red Blood Count 3.50 x10^6/uL (4.30-5.70) Hemoglobin 9.5 g/dL (13.0-17.5) Hematocrit 29.3 % (39.0-53.0) Mean Corpuscular Volume 84 fL (79-100) Mean Corpuscular Hemoglobin 27 pg (25-35) Mean Corpuscular Hemoglobin Concent 32 g/dL (31-37) Red Cell Distribution Width 17.9 % (11.5-14.5) Platelet Count 159 x10^3/uL (140-400) Neutrophils (%) (Auto) 88 % (31-73) Lymphocytes (%) (Auto) 6 % (24-48) Monocytes (%) (Auto) 5 % (0-9) Eosinophils (%) (Auto) 0 % (0-3) Basophils (%) (Auto) 1 % (0-3) Neutrophils # (Auto) 7.1 x10^3uL (1.8-7.7) Lymphocytes # (Auto) 0.5 x10^3/uL (1.0-4.8) Monocytes # (Auto) 0.4 x10^3/uL (0.0-1.1) Eosinophils # (Auto) 0.0 x10^3/uL (0.0-0.7) Basophils # (Auto) 0.0 x10^3/uL (0.0-0.2) Sodium Level 137 mmol/L (136-145) Potassium Level 3.4 mmol/L (3.5-5.1) Chloride Level 101 mmol/L (98-107) Carbon Dioxide Level 28 mmol/L (21-32) Anion Gap 8 (6-14) Blood Urea Nitrogen 9 mg/dL (8-26) Creatinine 0.8 mg/dL (0.7-1.3) Estimated GFR (Cockcroft-Gault) 97.0 Glucose Level 110 mg/dL (70-99) Calcium Level 7.9 mg/dL (8.5-10.1) Brief Hospital Course Mr Nath is a 63-year-old male presented to the ER on 09/21/2018 with complaints of generalized weakness and not feeling well. The patient has history of colon cancer, receiving chemotherapy monthly and also has infected mesh for which he has been following with Dr. Clarke at [facility], but since he has been on chemo they are not able to remove the infected mesh. The patient has drainage off and on. He also had UA, which showed pyuria. Lactic acid was high. He had leukocytosis. He had decreased p.o. intake and had a decrease in the urine output. He had been on Bactrim about 4 weeks ago when he presented to urgent care at [facility]. He has not been seen at for the last 4-5 months. He was started on empiric vanc-->dapto and Zosyn, no wsp I&D 08/2618 by urology and general surgery requiring intense wound care with daily irrigations, ID has changed to merrem, zyvox and micafungin. Feeling alright, Pain controlled, Appetite fair, throat better today. Denies F/C /S/N/V/D/aches. Drains and prather still in place. He is amenable to discharge to LTAC as I have discussed with wound care his wounds are extremely complicated will require 24/7 care and at least 2x daily dressing changes. Assessment: Sepsis with elevated lactate 7, now normal Necrotizing fasciitis Scrotal edema status post IND OR 09/22/18 by urology Closed anion gap Renal failure, acute - improving Hyponatremia 134-very dry, IMPROVING SIGNIFICANTLY Hypokalemia Tachycardia 120s to 1300 sinus, RESOLVED Leukocytosis resolved Bilateral scrotal swelling improving History recent UTI-a week ago Colon CA on chemotherapy status post colon Resection with indwelling colostomy Ventral hernia mesh wound, infected Indwelling colostomy bag right Plan: Cont micafungin and merrem (off zyvox), I have d/w ID, Dr. Rothman Needs complicated wound care Referral to LTAC for discharge Discharge Information Condition at Discharge: Improved Follow Up: Weeks (1) Disposition/Orders: D/C to Another Facility ([facility]) Scheduled Lisinopril (Lisinopril) 20 Mg Tablet, 10 MG PO DAILY for hypertension, (Reported ) Entered as Reported by: ALLIE BARAKAT on 09/21/181708 Last Action: Continued on 09/21/181800 by DWAYNE TIDWELL Potassium Chloride (Potassium Chloride) 20 Meq Tab.er.prt, 1 TAB PO DAILY, #15 Ref 0 Prescribed by: SUSANA CLOUD on 02/07/15 1444 Last Action: HELD on 09/22/181111 by DWAYNE TIDWELL Rivaroxaban (Xarelto) 20 Mg Tablet, 20 MG PO DAILY for anticoagulant, (Reported) Entered as Reported by: ALLIE BARAKAT on 09/21/181708 Last Action: Converted on 09/22/181111 by BELTRAN ROBLEDO MD Sep 30, 2018 14:34
[2018-09-30] MEDS: MORPHINE SULFATE 2 MG/ML VIAL. IV PRN (14:43)
--- NOTE | 2018-09-30 14:56 | NUR ---
CRYSTAL following pt. Insurance has approved LTAC at [facility]. CRYSTAL phoned and faxed orders to [facility]. Pt will transport via [facility] at 1700. Pt aware of plan and agreeable. Packet on chart. Discussed with RN.
[2018-09-30 15:19] VITALS: BP 126/63
--- NOTE | 2018-09-30 15:20 | NUR ---
Wound Care: Wound care follow up for wound care dressing change to scrotum. Pt dosed with pain medication by RN prior to wound care arrival. Removed packing, wound cleansed and assessed. Scrotum wound s/p I&D 09/23, testicle exposed. Repacked with Iodoform 1" gauze packing and covered with ABD pads and mesh underwear. Abdominal wound dressing removed and wound cleansed, assessed, measured, and pictured. Wound packed with Aquacel Ag, then ABD pad and tape changing every 3-4 days. Patient coccyx is reddened but remains blanchable. Patient stating he is not turning as often as he should due to pain. Patient refusing to turn at this time. Patient is on a P-500 bed at this time. Urology recommending for the scrotum dressing to be changed twice daily. Patient tolerating daily dressings at this, if patient able to tolerate increase to BID dressing changes. WC will follow up with patient while in hospital. Call light in reach and bed lowered. Spoke with RN regarding POC.
[2018-09-30] MEDS ORDERED: MERO500V15 IV (15:40)
--- NOTE | 2018-09-30 16:43 | NUR ---
REPORT CALLED TO WERNER AT [facility], QUESTIONS AND CONCERNS ANSWERED, AWAITING TRANSPORT FROM EMS AT THIS TIME.
[2018-10-08] MEDS ORDERED: MERO500V15 IV (10:08)
[2018-10-08] MEDS ORDERED: ERAXIS (10:09)
[2018-10-08] MEDS ORDERED: MORP15TA IV (10:10)
[2018-10-08] MEDS ORDERED: ONDA4TAB7 PO (10:11)
[2018-10-08] MEDS ORDERED: POTA20TA82 PO (10:11)
[2018-10-08] MEDS ORDERED: APIX5TAB PO (10:12)
== END 2018-09-30 17:00 | DRG 853 ==
LOC: ER 13:27 → 5 NORTH 14:40
PROVIDERS: ADMIT Internal Medicine; ATTEND Internal Medicine
PROC: 0Y9600Z Drainage of Left Inguinal Region with Drainage Device, Open Approach (ICD-10-PCS; principal; 2018-09-22 15:30)
DX: A41.9 Sepsis, unspecified organism (principal); M72.6 Necrotizing fasciitis; C18.9 Malignant neoplasm of colon, unspecified; E87.1 Hypo-osmolality and hyponatremia; L02.214 Cutaneous abscess of groin; N17.9 Acute kidney failure, unspecified; N18.4 Chronic kidney disease, stage 4 (severe); N39.0 Urinary tract infection, site not specified; T85.79XA Infection and inflammatory reaction due to other internal prosthetic devices, implants and grafts, initial encounter; M19.90 Unspecified osteoarthritis, unspecified site; E86.0 Dehydration; I12.9 Hypertensive chronic kidney disease with stage 1 through stage 4 chronic kidney disease, or unspecified chronic kidney disease; E87.6 Hypokalemia; N49.3 Fournier gangrene; K46.9 Unspecified abdominal hernia without obstruction or gangrene; N49.2 Inflammatory disorders of scrotum; N50.89 Other specified disorders of the male genital organs; R65.20 Severe sepsis without septic shock; Y83.2 Surgical operation with anastomosis, bypass or graft as the cause of abnormal reaction of the patient, or of later complication, without mention of misadventure at the time of the procedure; Z85.038 Personal history of other malignant neoplasm of large intestine; Z87.440 Personal history of urinary (tract) infections; Z90.49 Acquired absence of other specified parts of digestive tract; Z93.3 Colostomy status; Z79.899 Other long term (current) drug therapy
CPT/HCPCS: 36415; 71045; 74176; 80048; 80053; 81001; 82550; 83605; 83735; 84484; 85007; 85025; 85651; 87040; 87071; 87075; 87086; 93005; 96361; 96365; 96367; A7015; J0878; J1100; J1644; J2001; J2020; J2185; J2248; J2270; J2370; J2405; J2543; J2704; J3010; J3370; J3475; J3480; J3490; J7030; J7050; Q9966; 97530; 97535; 99285-25; A4461

== ENCOUNTER 2019-07-30 18:44 | Inpatient (IN) | payer BC ==
[~2019-07-30] VITALS: Ht 177.8 cm; Wt 84.1 kg
[~2019-07-30 18:44] MED LIST changes: +APIX5TAB PO; +ERAXIS; +LISI-334 PO; +MERO500V15 IV; +MORP15TA IV; +ONDA4TAB7 PO; +POTA20TA4 PO; +RIVA20TA2 PO
[2019-07-30] MEDS ORDERED: ONDANSETRON PF 4 MG/2 ML VIAL. IVP ONE (19:30)
[2019-07-30] MEDS ORDERED: IV NORMAL SALINE 1000ML BAG 1,000 ML IV ONE (19:30)
[2019-07-30] MEDS ORDERED: cefTRIAXone IV Push 1 GM VIAL. IVP ONE (19:30)
--- NOTE | 2019-07-30 19:43 | PHYS DOC ---
Past Medical History Past Medical History: Cancer, Constipation, Hypertension, Other Additional Past Medical Histor: heart murmur (patent ductus),colon ca Past Surgical History: Other Additional Past Surgical Histo: inguinal hernia x3,umbilical hernia,bowel resection/colostomy Alcohol Use: None Drug Use: None Adult General Chief Complaint Chief Complaint: WEAKNESS/GENERALIZED HPI HPI 64-year-old male with underlying history of colon cancer status post colostomy, 2014. Patient presented to emergency department today with weakness, cough, diarrhea, room air saturations 88%. Patient states weakness is been ongoing times several weeks. He was advised by his sister to come and get evaluated. Upon EMS arrival, patient's blood pressure was in the 70s systolically, current ly 70/41, heart rate 92, saturations 88%. Patient denies any nausea, vomiting has had increased output from his ostomy. Describes generalized weakness ongoing times several weeks his previous he describes. He does describe a cough. Nothing makes his symptoms worse, nothing makes his symptoms better. Review of Systems Review of Systems Constitutional: chills Respiratory: + cough/SOB Cardiovascular: No additional information not addressed in HPI [] GI: Denies abdominal pain, nausea, vomiting, bloody stools, increased output from ostomy [] Musculoskeletal: Denies back pain or joint pain [] Integument: Denies rash or skin lesions [] Neurologic: Denies headache, focal weakness or sensory changes [] All other systems were reviewed and found to be within normal limits, except as documented in this note. Current Medications Current Medications Current Medications Medications (Trade) Dose Ordered Sig/Joseph Start Time Stop Time Status Last Admin Dose Admin Acetaminophen (Tylenol) 650 mg PRN Q4HRS PRN 07/30/19 22:30 07/31/19 22:29 Ceftriaxone Sodium (Rocephin) 1 gm 1X ONCE 07/30/19 19:30 07/30/19 19:31 DC 07/30/19 19:35 1 GM Levofloxacin/ Dextrose 150 ml @ 100 mls/hr 1X ONCE 07/30/19 22:00 07/30/19 23:29 DC 07/30/19 22:02 100 MLS/HR Norepinephrine Bitartrate 8 mg/ Dextrose 258 ml @ 15.383 mls/ hr 1X ONCE 07/30/19 20:30 07/31/19 13:16 07/30/19 20:55 1.875 MLS/HR Ondansetron HCl (Zofran) 4 mg PRN Q8HRS PRN 07/30/19 22:30 07/31/19 22:29 Sodium Bicarbonate 50 meq/Dextrose 1,050 ml @ 125 mls/hr 1X ONCE 07/30/19 22:30 07/31/19 06:53 Sodium Chloride 1,000 ml @ 1,000 mls/hr Q1H 07/30/19 21:40 07/30/19 23:28 DC 07/30/19 22:30 1,000 MLS/HR Vancomycin HCl (Vanco Per Pharmacy) 1 each PRN DAILY PRN 07/30/19 21:30 Vancomycin HCl 2 gm/Sodium Chloride 500 ml @ 250 mls/hr 1X ONCE 07/30/19 22:00 07/30/19 23:59 07/30/19 21:51 250 MLS/HR Allergies Allergies Allergies Coded Allergies Type Severity Reaction Last Updated Verified No Known Drug Allergies 10/08/18 No Physical Exam Physical Exam Constitutional: Well developed, well nourished, no acute distress, ill- appearing[] HENT: Normocephalic, atraumatic, bilateral external ears normal, oropharynx moist, no oral exudates, nose normal. [] Eyes: PERRLA, EOMI, conjunctiva normal, no discharge. [] Neck: Normal range of motion, no tenderness, supple, no stridor. [] Cardiovascular: Tachycardia Lungs & Thorax: decreased BS Abdomen: Bowel sounds normal, soft, no tenderness, no masses, no pulsatile masses, non healing wound appreciated to ex lap surgery however this has been a chronic problem [] Skin: Warm, dry, no erythema, no rash. [] Back: No tenderness, no CVA tenderness. [] Extremities: No tenderness, no edema. [] Neurologic: Alert and oriented X 3, no focal deficits noted. [] Psychologic: Affect normal, judgement normal, mood normal. [] Current Patient Data Vital Signs Vital Signs Date Time Temp Pulse Resp B/P (MAP) Pulse Ox O2 Delivery O2 Flow Rate FiO2 07/30/19 22:33 98.1 98.1 07/30/19 22:00 110 22 87/50 (62) 93 Nasal Cannula 6.0 Lab Values Laboratory Tests Test 07/30/19 19:24 07/30/19 19:50 07/30/19 20:16 White Blood Count 10.1 x10^3/uL (4.0-11.0) Red Blood Count 5.22 x10^6/uL (4.30-5.70) Hemoglobin 14.5 g/dL (13.0-17.5) Hematocrit 43.9 % (39.0-53.0) Mean Corpuscular Volume 84 fL (79-100) Mean Corpuscular Hemoglobin 28 pg (25-35) Mean Corpuscular Hemoglobin Concent 33 g/dL (31-37) Red Cell Distribution Width 17.3 % (11.5-14.5) H Platelet Count 314 x10^3/uL (140-400) Neutrophils (%) (Auto) 95 % (31-73) H Lymphocytes (%) (Auto) 5 % (24-48) L Monocytes (%) (Auto) 0 % (0-9) Eosinophils (%) (Auto) 0 % (0-3) Basophils (%) (Auto) 0 % (0-3) Neutrophils # (Auto) 9.6 x10^3/uL (1.8-7.7) H Lymphocytes # (Auto) 0.5 x10^3/uL (1.0-4.8) L Monocytes # (Auto) 0.0 x10^3/uL (0.0-1.1) Eosinophils # (Auto) 0.0 x10^3/uL (0.0-0.7) Basophils # (Auto) 0.0 x10^3/uL (0.0-0.2) Segmented Neutrophils % 51 % (35-66) Band Neutrophils % 23 % (0-9) H Lymphocytes % 10 % (24-48) L Monocytes % 14 % (0-10) H Metamyelocytes % 1 % (0-0) H Myelocytes % 1 % (0-0) H Toxic Granulation Present Platelet Estimate Adequate (ADEQUATE) Poikilocytosis Slight Anisocytosis Slight D-Dimer (Gabriela) 3.85 ug/mlFEU (0.00-0.50) H Sodium Level 134 mmol/L (136-145) L Potassium Level 5.0 mmol/L (3.5-5.1) Chloride Level 81 mmol/L (98-107) L Carbon Dioxide Level 15 mmol/L (21-32) L Anion Gap 38 (6-14) H Blood Urea Nitrogen 216 mg/dL (8-26) H Creatinine 15.1 mg/dL (0.7-1.3) H Estimated GFR (Cockcroft-Gault) 3.3 BUN/Creatinine Ratio 14 (6-20) Glucose Level 221 mg/dL (70-99) H Lactic Acid Level 2.6 mmol/L (0.4-2.0) H Calcium Level 8.8 mg/dL (8.5-10.1) Total Bilirubin 0.4 mg/dL (0.2-1.0) Aspartate Amino Transferase (AST) 16 U/L (15-37) Alanine Aminotransferase (ALT) 19 U/L (16-63) Alkaline Phosphatase 93 U/L (46-116) Total Protein 7.2 g/dL (6.4-8.2) Albumin 2.8 g/dL (3.4-5.0) L Albumin/Globulin Ratio 0.6 (1.0-1.7) L Procalcitonin 19.82 ng/mL (0.00-0.10) H Influenza Type A Antigen Negative (NEGATIVE) Influenza Type B Antigen Positive (NEGATIVE) O2 Saturation 92 % (92-99) Arterial Blood pH 7.36 (7.35-7.45) Arterial Blood pCO2 at Patient Temp 24 mmHg (35-46) L Arterial Blood pO2 at Patient Temp 74 mmHg (65-108) Arterial Blood HCO3 13 mmol/L (21-28) L Arterial Blood Base Excess -10 mmol/L (-3-3) L Laboratory Tests 07/30/19 19:24 Laboratory Tests 07/30/19 19:24 EKG EKG [] Radiology/Procedures Radiology/Procedures [facility] [address] [place], [place] [id number] IMAGING REPORT Signed PATIENT: KELLY DONOVAN ACCOUNT: [id number] : 1955 LOCATION: ER AGE: 64 SEX: M EXAM STATUS: PRE ER ORD. PHYSICIAN: RIYA MALLORY MD REASON: SOB, hypotensino PROCEDURE: PORTABLE CHEST 1V PORTABLE CHEST 1V History: Shortness of breath. Hypertension. Comparison: September 21, 2018 Findings: Patchy bibasilar opacities. Right chest wall port, unchanged. No pneumothorax. Possible small left pleural effusion. Decreased right upper lobe patchy opacity. Unchanged heart size. Impression: 1. Patchy bibasilar opacities, may represent atelectasis or consolidations. 2. Possible small left pleural effusion. 3. Decreased right upper lobe bandlike opacity. Electronically signed by: Alejandro Zuleta DO (07/30/2019 8:00 PM) [facility] DICTATED and SIGNED BY: ALEJANDRO ZULETA DO DATE: 07/30/191999 [] Course & Med Decision Making Course & Med Decision Making Pertinent Labs and Imaging studies reviewed. (See chart for details) []64-year-old male with underlying history of colon cancer status post colostomy, 2014. Patient presented to emergency department today with weakness, cough, diarrhea, room air saturations 88%. Patient states weakness is been ongoing times several weeks. He was advised by his sister to come and get evaluated. Upon EMS arrival, patient's blood pressure was in the 70s systolically, currently 70/41, heart rate 92, saturations 88%. Patient denies any nausea, vomiting has had increased output from his ostomy. Describes generalized weakness ongoing times several weeks his previous he describes. He does describe a cough. Nothing makes his symptoms worse, nothing makes his symptoms better. Labs/Imaging reviewed Septic Shock criteria met upon admit/labs Abx addressed with cultures obtained Patient required 30ml/kg bolus of IVF Despite IVF, patient started on levophed for hypotension, BP did improve There was concern for hypoxia however this was likely secondary hypothermia and ability to capture saturation CXR reviewed lactic acid 2.6 Roa - consult via phone [phone], recommends bicarb drip, will see in AM Porfirio Disclaimer Porfirio Disclaimer This electronic medical record was generated, in whole or in part, using a voice recognition dictation system. Date and Time of Reassessment Date: Jan 13, 2015 Time: 22:00 Fluid Challenge Is the fluid challenge complet: Yes IBW Target Volume Used: Yes BMI > 30: Yes Vital Signs Vital Signs: Vital Signs Date Time Temp Pulse Resp B/P (MAP) Pulse Ox O2 Delivery O2 Flow Rate FiO2 07/30/19 22:33 98.1 98.1 07/30/19 22:00 110 22 87/50 (62) 93 Nasal Cannula 6.0 Temperature Source: Oral Respirations Respiratory Effort: Non-Labored Respiratory Pattern: Tachypnea Cardiovascular Pulse Rhythm: Irregular Heart: No rubs, clicks or gallop Lung Sounds Breath Sounds: Diminished Capillary Refil Capillary Refill: Rt Hand < 3 seconds Peripheral Pulse Pulse Location: Monitor Pulse Strength: Normal (2+) Pulse Assessment Method: NIBP Integumentary Skin: Warm Departure Departure Impression: Primary Impression: Septic shock Additional Impressions: Acute renal failure Pneumonia Influenza Disposition: ADMITTED INPATIENT Admitting Physician: HIMS Condition: GUARDED Referrals: NO PCP (PCP) Critical Care Time Critical care time was 40 minutes exclusive of procedures. Problem Qualifiers Additional Impressions: Acute renal failure Acute renal failure type: unspecified Qualified Codes: N17.9 - Acute kidney failure, unspecified Pneumonia Pneumonia type: due to unspecified organism Laterality: bilateral Lung location: lower lobe of lung Qualified Codes: J18.9 - Pneumonia, unspecified organism RIYA MALLORY MD Jul 30, 2019 19:43
[2019-07-30 19:44] LABS: BASO % 0 % (0-3); EOS % 0 % (0-3); HEMATOCRIT 43.9 % (39.0-53.0); HEMOGLOBIN 14.5 g/dL (13.0-17.5); LYMPH # 0.5 x10^3/uL (1.0-4.8); LYMPH % 5 % (24-48); MEAN CORPUSCULAR HEMOGLOBIN 28 pg (25-35); MEAN CORPUSCULAR HGB CONC 33 g/dL (31-37); MEAN CORPUSCULAR VOLUME 84 fL (79-100); MONO % 0 % (0-9); NEUT # 9.6 x10^3/uL (1.8-7.7); NEUT % 95 % (31-73); PLATELET COUNT 314 x10^3/uL (140-400); RED BLOOD COUNT 5.22 x10^6/uL (4.30-5.70); RED CELL DISTRIBUTION WIDTH 17.3 % (11.5-14.5); WHITE BLOOD COUNT 10.1 x10^3/uL (4.0-11.0)
--- NOTE | 2019-07-30 20:03 | RAD ---
PORTABLE CHEST 1V History: Shortness of breath. Hypertension. Comparison: September 21, 2018 Findings: Patchy bibasilar opacities. Right chest wall port, unchanged. No pneumothorax. Possible small left pleural effusion. Decreased right upper lobe patchy opacity. Unchanged heart size. Impression: 1. Patchy bibasilar opacities, may represent atelectasis or consolidations. 2. Possible small left pleural effusion. 3. Decreased right upper lobe bandlike opacity. Electronically signed by: Alejandro Zuleta DO (07/30/2019 8:00 PM) [facility]
[2019-07-30 20:06] LABS: % MYELOS 1 % (0-0); PLT ESTIMATE ADEQUATE (ADEQUATE)
[2019-07-30 20:09] LABS: % BANDS 23 % (0-9); % LYMPHS 10 % (24-48); % METAS 1 % (0-0); % MONOS 14 % (0-10); % SEGS 51 % (35-66)
[2019-07-30 20:10] LABS: ANISOCYTOSIS SLIGHT; POIKILOCYTOSIS SLIGHT; TOXIC GRANULATION PRESENT
[2019-07-30] MEDS ORDERED: NOREPINEPHRINE VIAL 8 MG in IV DEXTROSE 5% 250 ML IV ONE (20:30)
[2019-07-30 20:33] LABS: BASE EXCESS ABG -10 mmol/L (-3-3); HCO3 ABG 13 mmol/L (21-28); PCO2 ABG 24 mmHg (35-46); PO2 ABG 74 mmHg (65-108); SAT O2 ABG 92 % (92-99)
[2019-07-30 20:47] LABS: INFLUENZA A PATIENT NEGATIVE (NEGATIVE)
[2019-07-30 20:50] LABS: INFLUENZA B PATIENT POSITIVE (NEGATIVE)
[2019-07-30 20:54] LABS: CALCIUM 8.8 mg/dL (8.5-10.1)
[2019-07-30 20:57] LABS: ALBUMIN 2.8 g/dL (3.4-5.0); ALBUMIN/GLOBULIN RATIO 0.6 (1.0-1.7); TOTAL BILIRUBIN 0.4 mg/dL (0.2-1.0); TOTAL PROTEIN 7.2 g/dL (6.4-8.2)
[2019-07-30 21:21] LABS: CREATININE 15.1 mg/dL (0.7-1.3)
[2019-07-30 21:23] LABS: GFR 3.3
[2019-07-30] MEDS ORDERED: NORMAL SALINE IV SCH (21:30)
[2019-07-30] MEDS ORDERED: VANCOMYCIN PER PHARMACY MC PRN (21:30)
[2019-07-30] MEDS ORDERED: IV NORMAL SALINE 1000ML BAG 1,000 ML IV SCH (21:40)
[2019-07-30] MEDS ORDERED: VANCOMYCIN 2 GM in IV NORMAL SALINE 500ML BAG 500 ML IV ONE (22:00)
[2019-07-30] MEDS ORDERED: ONDANSETRON PF 4 MG/2 ML VIAL. IV PRN (22:30)
[2019-07-30] MEDS ORDERED: ACETAMINOPHEN 325 MG TABLET. PO PRN (22:30)
[2019-07-30] MEDS ORDERED: SODIUM BICARBONATE VIAL 50 MEQ in IV DEXTROSE 5% 1,000 ML IV ONE (22:30)
[2019-07-30 23:00] VITALS: BP 80/42
--- NOTE | 2019-07-30 23:00 | NUR ---
pt admitted to room 114 from ED at this time. VSS on 6L/NC, Levophed gtt infusing, Bicarb gtt to start once sepsis fluids have been completed. pt oriented to room, unit routines, call light, diet, and plan of care. pt voices understanding. pt able to answer admission questions and complete admission process without difficulty. call light in reach, will continue to closely monitor.
[2019-07-31] VITALS (22 sets, daily range): BP systolic 83–113; BP diastolic 41–77
[2019-07-31 04:49] LABS: BASO % 0 % (0-3); EOS % 0 % (0-3); HEMATOCRIT 35.9 % (39.0-53.0); HEMOGLOBIN 11.9 g/dL (13.0-17.5); LYMPH # 0.6 x10^3/uL (1.0-4.8); LYMPH % 8 % (24-48); MEAN CORPUSCULAR HEMOGLOBIN 28 pg (25-35); MEAN CORPUSCULAR HGB CONC 33 g/dL (31-37); MEAN CORPUSCULAR VOLUME 84 fL (79-100); MONO % 13 % (0-9); NEUT # 5.8 x10^3/uL (1.8-7.7); NEUT % 79 % (31-73); PLATELET COUNT 207 x10^3/uL (140-400); RED CELL DISTRIBUTION WIDTH 17.7 % (11.5-14.5); WHITE BLOOD COUNT 7.4 x10^3/uL (4.0-11.0)
[2019-07-31 05:13] LABS: ALBUMIN 1.9 g/dL (3.4-5.0); ALBUMIN/GLOBULIN RATIO 0.5 (1.0-1.7); CALCIUM 7.7 mg/dL (8.5-10.1); CREATININE 17.1 mg/dL (0.7-1.3); GFR 2.8; POTASSIUM 4.2 mmol/L (3.5-5.1); TOTAL BILIRUBIN 0.3 mg/dL (0.2-1.0); TOTAL PROTEIN 5.4 g/dL (6.4-8.2)
--- NOTE | 2019-07-31 05:39 | NUR ---
Pharmacy Vancomycin Dosing Note S:Consulted to monitor and dose vancomycin started 07/30/19. O:KELLY DONOVAN is a 64 year old M with Sepsis Pneumonia . Height: 5 feet, 10 inches Weight: 86.810317 kg [place] Body Weight: 73.00 Adjusted Body Weight: 78.44 Dosing Weight: Actual Other Antibiotics: LEVOFLOXACIN 750 MG X1 IN ED LABS: Last BUN: 216 Last Creatinine: 15.1 Creatinine Clearance: 5 mL/min Last WBC: 10.1 Last Procalcitonin: 19.82 Tmax (past 24 hours): Microbiology: I/O: Drug Levels: Last level: on at Last dose given 07/30/19 at 2200 Vancomycin Dosing: Loading Dose: 2000 mg x1 Dosing Weight: Actual Target Trough: 15-20 A: Based on: WT AND CRCL P: 1. Begin Vancomycin 1250 mg IV Dose Per Levels 2. Follow up Random level on 08/01/19 at 2200 3. Pharmacy will continue to monitor, follow and adjust therapy as needed. BAILEE NOLAN RPH, 07/31/19 0539 Signed: 07/31/19 at 0539 by BAILEE NOLAN RPH PHA
[2019-07-31] MEDS ORDERED: PIP/TAZO PER PHARMACY MC PRN (10:00)
--- NOTE | 2019-07-31 10:20 | PDOC ---
Infectious Disease Note Vital Sign Vital Signs Vital Signs Date Time Temp Pulse Resp B/P (MAP) Pulse Ox O2 Delivery O2 Flow Rate FiO2 07/31/19 07:00 89 20 99/52 (68) 98 Nasal Cannula 6.0 07/31/19 04:00 98.9 98.9 Labs Lab Laboratory Tests Test 07/30/19 19:24 07/30/19 19:50 07/30/19 20:16 07/31/19 00:20 White Blood Count 10.1 x10^3/uL (4.0-11.0) Red Blood Count 5.22 x10^6/uL (4.30-5.70) Hemoglobin 14.5 g/dL (13.0-17.5) Hematocrit 43.9 % (39.0-53.0) Mean Corpuscular Volume 84 fL (79-100) Mean Corpuscular Hemoglobin 28 pg (25-35) Mean Corpuscular Hemoglobin Concent 33 g/dL (31-37) Red Cell Distribution Width 17.3 % (11.5-14.5) Platelet Count 314 x10^3/uL (140-400) Neutrophils (%) (Auto) 95 % (31-73) Lymphocytes (%) (Auto) 5 % (24-48) Monocytes (%) (Auto) 0 % (0-9) Eosinophils (%) (Auto) 0 % (0-3) Basophils (%) (Auto) 0 % (0-3) Neutrophils # (Auto) 9.6 x10^3/uL (1.8-7.7) Lymphocytes # (Auto) 0.5 x10^3/uL (1.0-4.8) Monocytes # (Auto) 0.0 x10^3/uL (0.0-1.1) Eosinophils # (Auto) 0.0 x10^3/uL (0.0-0.7) Basophils # (Auto) 0.0 x10^3/uL (0.0-0.2) Segmented Neutrophils % 51 % (35-66) Band Neutrophils % 23 % (0-9) Lymphocytes % 10 % (24-48) Monocytes % 14 % (0-10) Metamyelocytes % 1 % (0-0) Myelocytes % 1 % (0-0) Toxic Granulation Present Platelet Estimate Adequate (ADEQUATE) Poikilocytosis Slight Anisocytosis Slight D-Dimer (Gabriela) 3.85 ug/mlFEU (0.00-0.50) Sodium Level 134 mmol/L (136-145) Potassium Level 5.0 mmol/L (3.5-5.1) Chloride Level 81 mmol/L (98-107) Carbon Dioxide Level 15 mmol/L (21-32) Anion Gap 38 (6-14) Blood Urea Nitrogen 216 mg/dL (8-26) Creatinine 15.1 mg/dL (0.7-1.3) Estimated GFR (Cockcroft-Gault) 3.3 BUN/Creatinine Ratio 14 (6-20) Glucose Level 221 mg/dL (70-99) Lactic Acid Level 2.6 mmol/L (0.4-2.0) 1.0 mmol/L (0.4-2.0) Calcium Level 8.8 mg/dL (8.5-10.1) Total Bilirubin 0.4 mg/dL (0.2-1.0) Aspartate Amino Transf (AST/SGOT) 16 U/L (15-37) Alanine Aminotransferase (ALT/SGPT) 19 U/L (16-63) Alkaline Phosphatase 93 U/L (46-116) Total Protein 7.2 g/dL (6.4-8.2) Albumin 2.8 g/dL (3.4-5.0) Albumin/Globulin Ratio 0.6 (1.0-1.7) Procalcitonin 19.82 ng/mL (0.00-0.10) Influenza Type A Antigen Negative (NEGATIVE) Influenza Type B Antigen Positive (NEGATIVE) O2 Saturation 92 % (92-99) Arterial Blood pH 7.36 (7.35-7.45) Arterial Blood pCO2 at Patient Temp 24 mmHg (35-46) Arterial Blood pO2 at Patient Temp 74 mmHg (65-108) Arterial Blood HCO3 13 mmol/L (21-28) Arterial Blood Base Excess -10 mmol/L (-3-3) Troponin I Quantitative < 0.017 ng/mL (0.000-0.055) Test 07/31/19 04:35 White Blood Count 7.4 x10^3/uL (4.0-11.0) Red Blood Count 4.30 x10^6/uL (4.30-5.70) Hemoglobin 11.9 g/dL (13.0-17.5) Hematocrit 35.9 % (39.0-53.0) Mean Corpuscular Volume 84 fL (79-100) Mean Corpuscular Hemoglobin 28 pg (25-35) Mean Corpuscular Hemoglobin Concent 33 g/dL (31-37) Red Cell Distribution Width 17.7 % (11.5-14.5) Platelet Count 207 x10^3/uL (140-400) Neutrophils (%) (Auto) 79 % (31-73) Lymphocytes (%) (Auto) 8 % (24-48) Monocytes (%) (Auto) 13 % (0-9) Eosinophils (%) (Auto) 0 % (0-3) Basophils (%) (Auto) 0 % (0-3) Neutrophils # (Auto) 5.8 x10^3/uL (1.8-7.7) Lymphocytes # (Auto) 0.6 x10^3/uL (1.0-4.8) Monocytes # (Auto) 1.0 x10^3/uL (0.0-1.1) Eosinophils # (Auto) 0.0 x10^3/uL (0.0-0.7) Basophils # (Auto) 0.0 x10^3/uL (0.0-0.2) Sodium Level 135 mmol/L (136-145) Potassium Level 4.2 mmol/L (3.5-5.1) Chloride Level 90 mmol/L (98-107) Carbon Dioxide Level 16 mmol/L (21-32) Anion Gap 29 (6-14) Blood Urea Nitrogen 210 mg/dL (8-26) Creatinine 17.1 mg/dL (0.7-1.3) Estimated GFR (Cockcroft-Gault) 2.8 BUN/Creatinine Ratio 12 (6-20) Glucose Level 173 mg/dL (70-99) Calcium Level 7.7 mg/dL (8.5-10.1) Total Bilirubin 0.3 mg/dL (0.2-1.0) Aspartate Amino Transf (AST/SGOT) 13 U/L (15-37) Alanine Aminotransferase (ALT/SGPT) 17 U/L (16-63) Alkaline Phosphatase 62 U/L (46-116) Troponin I Quantitative 0.080 ng/mL (0.000-0.055) Total Protein 5.4 g/dL (6.4-8.2) Albumin 1.9 g/dL (3.4-5.0) Albumin/Globulin Ratio 0.5 (1.0-1.7) Objective Assessment Septic shock, POA now off pressors Hypothermia Influenza B THAD Colon cancer undergoing chemo at [facility]. Port-a-cath in place. 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 Clarke at [facility] Plan Plan of Care Tamiflu, renal dosing, when able to take po Dose empiric Zosyn, renal dosing d/c vancomycin. Last dose 07/30 One time dose levaquin and Rocephin, 07/30 Monitor labs and VS f/u cultures Maintain aspiration precautions Awaiting renal eval Local wound care Droplet precautions D/w nursing Critically ill Thank you [id number] Attending Co-Sign The patient was seen and interviewed as well as examined at the bedside. The chart was reviewed. The case was discussed. Agree with the plan of care. VILMA MOROCHO APRN Jul 31, 2019 10:20 MARCELO HENNESSY MD Jul 31, 2019 12:28
[2019-07-31] MEDS: PIPERACILLIN/TAZOBACTAM 2.25 GM in IV NORMAL SALINE 50ML 50 ML IV SCH ×3 (10:44→22:40)
--- NOTE | 2019-07-31 11:17 | CONS ---
DATE OF CONSULTATION: 07/31/2019 INFECTIOUS DISEASE CONSULTATION REQUESTING PHYSICIAN: Dr. Silver. REASON FOR CONSULTATION: Septic shock. HISTORY OF PRESENT ILLNESS: This patient is a 64-year-old male, who is currently undergoing chemotherapy for colon cancer at the [facility]. He says his last treatment was a couple of weeks ago and since then has been feeling progressively weak with intermittent nausea and vomiting and increased ostomy output more than usual. He has developed a cough with some phlegm production as well. On arrival to the ER, he was hypothermic, hypotensive with bandemia and lactic acid of 2.6. Chest x-ray showed patchy bibasilar opacities and possible small left pleural effusion. He tested positive for influenza B. He was also in acute renal failure with a creatinine of 15.1 and BUN 216. He is admitted to the intensive care unit on Levophed drip. He was dosed with vancomycin, ceftriaxone, and levofloxacin in the ER. The patient is now off Levophed. He is feeling a little bit better, but still has a cough and is requiring supplemental oxygen of 5 liters. He denies fevers, chills, sweats or body aches. Denies shortness of air, chest congestion, or sinus drainage. He is feeling nauseous and is currently n.p.o. He says his appetite has been alright. He has been eating and drinking, but urination has been less. He denies pain or dysuria. Denies rash or itching. He has a chronic abdominal wound for which he is followed by Dr. Clarke at [facility] every 3 weeks. PAST MEDICAL HISTORY: History of infected abdominal hernia mesh associated with Prevotella bivia, history of scrotal abscess with yeast and Bacteroides, colon cancer undergoing chemotherapy at [facility], hypertension, degenerative joint disease, history of urinary tract infections. PAST SURGICAL HISTORY: Colon resection, ostomy, hernia repair with mesh. SOCIAL HISTORY: The patient lives at home alone. He is a nonsmoker. 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 He does not have any pets. FAMILY HISTORY: He is adopted. ALLERGIES: No known drug allergies. MEDICATIONS: 1. Vancomycin last dose on 07/30/2019. 2. One-time dose of levofloxacin on 07/30/2019. 3. One-time dose of ceftriaxone on 07/30/2019. 4. Bicarb. 5. Ondansetron. 6. Tylenol. REVIEW OF SYSTEMS: Per HPI, otherwise all other review of systems are negative. PHYSICAL EXAMINATION: VITAL SIGNS: Temperature is 98.9, blood pressure 99/52, heart rate 89, respiratory rate 20, pulse oximetry 98% on 6 liters oxygen. BMI 27. HEENT: Pupils equally round. Normal conjunctivae. Oropharynx pink and dry. Poor dentition. NECK: Supple. LUNGS: Diminished aeration, nonlabored. HEART: S1, S2 regular. ABDOMEN: Soft, nontender with bowel sounds present. Ostomy without signs of complications. Midline abdominal wound scabbed, no signs of infection. EXTREMITIES: No gross edema or cyanosis. SKIN: Warm to touch without signs of rash. NEUROLOGIC: Alert and answering questions appropriately. Right-sided chest Port-A-Cath without signs of any complications. LABORATORY DATA: Today's WBC 7.4, hemoglobin 11.9, platelets 207,000. Creatinine is 17.1, BUN 210. Sodium 135, potassium 4.2. Lactic acid 1.0 from 2.6, total bilirubin 0.3, AST 13, ALT 17. Troponin 0.080, albumin 1.9. Procalcitonin 19.82. Influenza B positive. Chest x-ray per HPI. Urinalysis and blood cultures pending. IMPRESSION: 1. Septic shock, present on admission. 2. Hypothermia. 3. Influenza B. 4. Acute kidney injury. 4. Colon cancer, undergoing chemotherapy. 5. 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 6. Critically ill. PLAN: Given acute kidney injury, we will discontinue the vancomycin. His last dose was on 07/30/2019. We will dose Zosyn and add Tamiflu when able to take p.o. Continue to monitor laboratory values and temperature. We will follow up on culture results. Maintain aspiration precautions. Local wound care. Nephrology has been consulted. Droplet precautions. Thank you, Dr. Silver, for asking us to participate in this patient's care. Should you have further questions or concerns, please call. MARCELO HENNESSY MD DR: DEEPIKA/you JOB#: [id number] / [id number]
--- NOTE | 2019-07-31 12:05 | EKG ---
[facility] [address] [place] [address] Test Date: 2019-07-30 Test Time: 18:58:40 Pat Name: KELLY DONOVAN Department: Room: Gender: M [employer] Manager: : [id number] Requested By: RIYA MALLORY Order Number: [id number] Reading MD: Measurements Intervals Harleigh Rate: 125 P: -173 ME: 156 QRS: -43 QRSD: 106 T: 71 QT: 302 QTc: 438 Interpretive Statements SINUS TACHYCARDIA ABNORMAL LEFT AXIS DEVIATION LEFT ANTERIOR FASCICULAR BLOCK LEFT VENTRICULAR HYPERTROPHY T ABNORMALITY IN HIGH LATERAL LEADS ABNORMAL ECG RI6.01 No previous ECG available for comparison
--- NOTE | 2019-07-31 12:23 | RAD ---
Nuclear medicine ventilation/perfusion scan: Reason for examination: Elevated d-dimer and renal failure. Ventilation scan was performed with 12.8 mCi xenon-133 gas with single breath equilibrium phase and washout phase images obtained. Due to computer malfunction however images were lost. Perfusion scan was performed using 5.5 mCi technetium 99m MAA. Images were obtained in the standard 8 projections. No perfusion defects are seen. IMPRESSION: No perfusion defects identified. Low probability of pulmonary embolus. Electronically signed by: Alysa Pedro MD (07/31/2019 12:20 PM) [id number]
--- NOTE | 2019-07-31 12:23 | PDOC2 ---
CONSULT Date of Consult Date of Consult DATE: 07/31/19 TIME: 12:08 Reason for Consult Reason for Consult: Acute renal failure Referring Physician Referring Physician: Dr. Urias Identification/Chief Complaint Chief Complaint Weakness Source Source: Chart review, Patient History of Present Illness Reason for Visit: Patient is a pleasant 64-year-old gentleman with known history of metastatic colon cancer presumably to the liver. He is currently undergoing chemotherapy at [facility]. Agents not known. He notes that his last treatment was couple of weeks ago. He has been putting out a lot more liquid from his ostomy and admits to having diarrhea. He also recently developed nausea vomiting and was unable to keep himself well hydrated. Over the last 2 weeks he has noticed decreased urine output also. He lives by himself and given his generalized weakness he presented to the ER for further evaluation. He tested positive for influenza B. He was also noted to be hypothermic, hypotensive with bandemia and a lactic acid of 2.6. There is some possibility of possible pneumonia also. Abnormal renal labs is reviewed below. He was started on Levophed but is now off of the same. He did receive IV fluid boluses per sepsis protocol. He is not aware of known renal insufficiency but has had required dialysis in the past once. Based on review of labs here his creatinines been running 0.9-1.4([facility]). Records from have been requested are not available yet Past Medical History Cardiovascular: HTN, Other Pulmonary: No pertinent hx GI: No pertinent hx Heme/Onc: Cancer Hepatobiliary: No pertinent hx Psych: No pertinent hx Musculoskeletal: Osteoarthritis Infectious disease: No pertinent hx Renal/: Chronic renal insuff, Acute renal failure Endocrine: No pertinent hx Past Surgical History Past Surgical History: Hernia Repair, Colon Resection Family History Family History: Adopted Social History ALCOHOL: none Drugs: None Lives: Alone Current Problem List Problem List Problems Medical Problems: (1) Acute renal failure Status: Acute (2) Influenza Status: Acute (3) Pneumonia Status: Acute (4) Septic shock Status: Acute Current Medications Current Medications Current Medications Ceftriaxone Sodium (Rocephin) 1 gm 1X ONCE IVP Last administered on 07/30/19at 19:35; Start 07/30/19 at 19:30; Stop 07/30/19 at 19:31; Status DC Sodium Chloride 1,000 ml @ 1,000 mls/hr 1X ONCE IV Last administered on 07/30/19at 19:31; Start 07/30/19 at 19:30; Stop 07/30/19 at 20:29; Status DC Ondansetron HCl (Zofran) 4 mg 1X ONCE IVP Last administered on 07/30/19at 19:34; Start 07/30/19 at 19:30; Stop 07/30/19 at 19:31; Status DC Norepinephrine Bitartrate 8 mg/ Dextrose 258 ml @ 15.383 mls/ hr 1X ONCE IV Last administered on 07/30/19at 20:55; Start 07/30/19 at 20:30; Stop 07/31/19 at 13:16 Sodium Chloride 2,190 ml @ 2,190 mls/hr Q1H IV Last administered on 07/30/19at 21:39; Start 07/30/19 at 21:30; Stop 07/30/19 at 21:40; Status DC Vancomycin HCl (Vanco Per Pharmacy) 1 each PRN DAILY PRN MC SEE COMMENTS Last administered on 07/31/19at 05:38; Start 07/30/19 at 21:30; Stop 07/31/19 at 09:56; Status DC Levofloxacin/ Dextrose 150 ml @ 100 mls/hr 1X ONCE IV Last administered on 07/30/19at 22:02; Start 07/30/19 at 22:00; Stop 07/30/19 at 23:29; Status DC Sodium Chloride 1,000 ml @ 1,000 mls/hr Q1H IV Last administered on 07/30/19at 22:30; Start 07/30/19 at 21:40; Stop 07/30/19 at 23:28; Status DC Vancomycin HCl 2 gm/Sodium Chloride 500 ml @ 250 mls/hr 1X ONCE IV Last administered on 07/30/19at 21:51; Start 07/30/19 at 22:00; Stop 07/30/19 at 23:59; Status DC Sodium Bicarbonate 50 meq/Dextrose 1,050 ml @ 125 mls/hr 1X ONCE IV Last administered on 07/31/19at 00:32; Start 07/30/19 at 22:30; Stop 07/31/19 at 06:53; Status DC Ondansetron HCl (Zofran) 4 mg PRN Q8HRS PRN IV NAUSEA/VOMITING 1ST CHOICE; Start 07/30/19 at 22:30; Stop 07/31/19 at 22:29 Acetaminophen (Tylenol) 650 mg PRN Q4HRS PRN PO FEVER; Start 07/30/19 at 22:30; Stop 07/31/19 at 22:29 Vancomycin HCl (Vancomycin Random Level) 1 each 1X ONCE MC ; Start 08/01/19 at 22:00; Stop 08/01/19 at 22:01; Status Cancel Piperacillin Sod/ Tazobactam Sod (Zosyn Per Pharmacy) 1 each PRN DAILY PRN MC SEE COMMENTS; Start 07/31/19 at 10:00 Piperacillin Sod/ Tazobactam Sod 2.25 gm/Sodium Chloride 50 ml @ 100 mls/hr Q8HRS IV Last administered on 07/31/19at 10:44; Start 07/31/19 at 10:00 Active Scripts Active Potassium Chloride 20 Meq Tab.er.prt 1 Tab PO DAILY Reported Eliquis (Apixaban) 5 Mg Tablet 5 Mg PO BID Potassium Chloride 20 Meq Tablet.er 20 Meq PO DAILY Zofran (Ondansetron Hcl) 4 Mg Tablet 1 Tab PO Q6HRS Morphine Sulfate 15 Mg Tablet 2 Mg IV Q2HR [eraxis] 100 Mg DAILY Meropenem 500 Mg Vial 500 Mg IV Q6HRS Lisinopril 20 Mg Tablet 10 Mg PO DAILY Allergies Allergies: Coded Allergies: No Known Drug Allergies (Unverified , 10/08/18) ROS Review of System 14 point review of systems as reviewed under history of present illness. Physical Exam Physical Exam General Appearance: Awake Alert Oriented x 3 In no Distress Eyes: VIsion Unchanged Conjunctiva Normal EN: No EN Drainage Mucous Memb. dryish Neck: no JVD no JVP Supple no Thyromegaly CVS: S1 S2 no Murmur No Gallop No Rub no Edema Resp: no Rales no Rhonchi no Acc. Muscle use GI: BS hypoactive NO Bruit Non Tender Non Distended, right upper quadrant colostomy with dark liquid stool : no CVA tenderness; no Suprapubic Tenderness SKIN: no Rashes Breast Exam deferred Mu.Sk: Adequate ROM no Muscle Atrophy Heme: Unable to palpate Obvious LAD no Splenomegaly NEURO: Good Strength and Tone Cranial Nerves II - XII grossly intact Psych: not Depressed no Active hallucination Vital Signs Vital Signs Date Time Temp Pulse Resp B/P (MAP) Pulse Ox O2 Delivery O2 Flow Rate FiO2 07/31/19 10:00 92 17 106/56 (73) 95 Nasal Cannula 4.0 07/31/19 08:00 98.9 98.9 Assessment & Plan Acute kidney injury: Appears to be mostly associated with severe intravascular volume depletion we'll hence continue IV fluids as ordered. Will need to be gentle given positive flu B testing and abnormal chest x-ray to begin with. Differential includes hypotension, intravascular volume depletion, nephrotoxicity of chemotherapy(current ly unknown agents) Oligo anuria: Cannot rule out ATN. Continue IV fluids as ordered Severe intravascular volume depletion: Gentle IV fluids as ordered. Severe metabolic acidosis with wide anion gap: IV fluids with bicarbonate if needed Hypocalcemia: Corrects for severe hypoalbuminemia Hypoalbuminemia: Presumably associated with metastatic disease to the liver Possible sepsis: Antibiotics per infectious disease physicians This note was partially created using Clifford Thames voice recognition system in a noisy environment with significant background conversation. I have attempted to proofread this note however inadvertent typos may be missed. Labs Labs Laboratory Tests Test 07/30/19 19:24 07/30/19 19:50 07/30/19 20:16 07/31/19 00:20 White Blood Count 10.1 x10^3/uL (4.0-11.0) Red Blood Count 5.22 x10^6/uL (4.30-5.70) Hemoglobin 14.5 g/dL (13.0-17.5) Hematocrit 43.9 % (39.0-53.0) Mean Corpuscular Volume 84 fL (79-100) Mean Corpuscular Hemoglobin 28 pg (25-35) Mean Corpuscular Hemoglobin Concent 33 g/dL (31-37) Red Cell Distribution Width 17.3 % (11.5-14.5) Platelet Count 314 x10^3/uL (140-400) Neutrophils (%) (Auto) 95 % (31-73) Lymphocytes (%) (Auto) 5 % (24-48) Monocytes (%) (Auto) 0 % (0-9) Eosinophils (%) (Auto) 0 % (0-3) Basophils (%) (Auto) 0 % (0-3) Neutrophils # (Auto) 9.6 x10^3/uL (1.8-7.7) Lymphocytes # (Auto) 0.5 x10^3/uL (1.0-4.8) Monocytes # (Auto) 0.0 x10^3/uL (0.0-1.1) Eosinophils # (Auto) 0.0 x10^3/uL (0.0-0.7) Basophils # (Auto) 0.0 x10^3/uL (0.0-0.2) Segmented Neutrophils % 51 % (35-66) Band Neutrophils % 23 % (0-9) Lymphocytes % 10 % (24-48) Monocytes % 14 % (0-10) Metamyelocytes % 1 % (0-0) Myelocytes % 1 % (0-0) Toxic Granulation Present Platelet Estimate Adequate (ADEQUATE) Poikilocytosis Slight Anisocytosis Slight D-Dimer (Gabriela) 3.85 ug/mlFEU (0.00-0.50) Sodium Level 134 mmol/L (136-145) Potassium Level 5.0 mmol/L (3.5-5.1) Chloride Level 81 mmol/L (98-107) Carbon Dioxide Level 15 mmol/L (21-32) Anion Gap 38 (6-14) Blood Urea Nitrogen 216 mg/dL (8-26) Creatinine 15.1 mg/dL (0.7-1.3) Estimated GFR (Cockcroft-Gault) 3.3 BUN/Creatinine Ratio 14 (6-20) Glucose Level 221 mg/dL (70-99) Lactic Acid Level 2.6 mmol/L (0.4-2.0) 1.0 mmol/L (0.4-2.0) Calcium Level 8.8 mg/dL (8.5-10.1) Total Bilirubin 0.4 mg/dL (0.2-1.0) Aspartate Amino Transf (AST/SGOT) 16 U/L (15-37) Alanine Aminotransferase (ALT/SGPT) 19 U/L (16-63) Alkaline Phosphatase 93 U/L (46-116) Total Protein 7.2 g/dL (6.4-8.2) Albumin 2.8 g/dL (3.4-5.0) Albumin/Globulin Ratio 0.6 (1.0-1.7) Procalcitonin 19.82 ng/mL (0.00-0.10) Influenza Type A Antigen Negative (NEGATIVE) Influenza Type B Antigen Positive (NEGATIVE) O2 Saturation 92 % (92-99) Arterial Blood pH 7.36 (7.35-7.45) Arterial Blood pCO2 at Patient Temp 24 mmHg (35-46) Arterial Blood pO2 at Patient Temp 74 mmHg (65-108) Arterial Blood HCO3 13 mmol/L (21-28) Arterial Blood Base Excess -10 mmol/L (-3-3) Troponin I Quantitative < 0.017 ng/mL (0.000-0.055) Test 07/31/19 04:35 White Blood Count 7.4 x10^3/uL (4.0-11.0) Red Blood Count 4.30 x10^6/uL (4.30-5.70) Hemoglobin 11.9 g/dL (13.0-17.5) Hematocrit 35.9 % (39.0-53.0) Mean Corpuscular Volume 84 fL (79-100) Mean Corpuscular Hemoglobin 28 pg (25-35) Mean Corpuscular Hemoglobin Concent 33 g/dL (31-37) Red Cell Distribution Width 17.7 % (11.5-14.5) Platelet Count 207 x10^3/uL (140-400) Neutrophils (%) (Auto) 79 % (31-73) Lymphocytes (%) (Auto) 8 % (24-48) Monocytes (%) (Auto) 13 % (0-9) Eosinophils (%) (Auto) 0 % (0-3) Basophils (%) (Auto) 0 % (0-3) Neutrophils # (Auto) 5.8 x10^3/uL (1.8-7.7) Lymphocytes # (Auto) 0.6 x10^3/uL (1.0-4.8) Monocytes # (Auto) 1.0 x10^3/uL (0.0-1.1) Eosinophils # (Auto) 0.0 x10^3/uL (0.0-0.7) Basophils # (Auto) 0.0 x10^3/uL (0.0-0.2) Sodium Level 135 mmol/L (136-145) Potassium Level 4.2 mmol/L (3.5-5.1) Chloride Level 90 mmol/L (98-107) Carbon Dioxide Level 16 mmol/L (21-32) Anion Gap 29 (6-14) Blood Urea Nitrogen 210 mg/dL (8-26) Creatinine 17.1 mg/dL (0.7-1.3) Estimated GFR (Cockcroft-Gault) 2.8 BUN/Creatinine Ratio 12 (6-20) Glucose Level 173 mg/dL (70-99) Calcium Level 7.7 mg/dL (8.5-10.1) Total Bilirubin 0.3 mg/dL (0.2-1.0) Aspartate Amino Transf (AST/SGOT) 13 U/L (15-37) Alanine Aminotransferase (ALT/SGPT) 17 U/L (16-63) Alkaline Phosphatase 62 U/L (46-116) Troponin I Quantitative 0.080 ng/mL (0.000-0.055) Total Protein 5.4 g/dL (6.4-8.2) Albumin 1.9 g/dL (3.4-5.0) Albumin/Globulin Ratio 0.5 (1.0-1.7) Laboratory Tests Test 07/30/19 19:24 07/30/19 19:50 07/30/19 20:16 07/31/19 00:20 White Blood Count 10.1 x10^3/uL (4.0-11.0) Red Blood Count 5.22 x10^6/uL (4.30-5.70) Hemoglobin 14.5 g/dL (13.0-17.5) Hematocrit 43.9 % (39.0-53.0) Mean Corpuscular Volume 84 fL (79-100) Mean Corpuscular Hemoglobin 28 pg (25-35) Mean Corpuscular Hemoglobin Concent 33 g/dL (31-37) Red Cell Distribution Width 17.3 % (11.5-14.5) Platelet Count 314 x10^3/uL (140-400) Neutrophils (%) (Auto) 95 % (31-73) Lymphocytes (%) (Auto) 5 % (24-48) Monocytes (%) (Auto) 0 % (0-9) Eosinophils (%) (Auto) 0 % (0-3) Basophils (%) (Auto) 0 % (0-3) Neutrophils # (Auto) 9.6 x10^3/uL (1.8-7.7) Lymphocytes # (Auto) 0.5 x10^3/uL (1.0-4.8) Monocytes # (Auto) 0.0 x10^3/uL (0.0-1.1) Eosinophils # (Auto) 0.0 x10^3/uL (0.0-0.7) Basophils # (Auto) 0.0 x10^3/uL (0.0-0.2) Segmented Neutrophils % 51 % (35-66) Band Neutrophils % 23 % (0-9) Lymphocytes % 10 % (24-48) Monocytes % 14 % (0-10) Metamyelocytes % 1 % (0-0) Myelocytes % 1 % (0-0) Toxic Granulation Present Platelet Estimate Adequate (ADEQUATE) Poikilocytosis Slight Anisocytosis Slight D-Dimer (Gabriela) 3.85 ug/mlFEU (0.00-0.50) Sodium Level 134 mmol/L (136-145) Potassium Level 5.0 mmol/L (3.5-5.1) Chloride Level 81 mmol/L (98-107) Carbon Dioxide Level 15 mmol/L (21-32) Anion Gap 38 (6-14) Blood Urea Nitrogen 216 mg/dL (8-26) Creatinine 15.1 mg/dL (0.7-1.3) Estimated GFR (Cockcroft-Gault) 3.3 BUN/Creatinine Ratio 14 (6-20) Glucose Level 221 mg/dL (70-99) Lactic Acid Level 2.6 mmol/L (0.4-2.0) 1.0 mmol/L (0.4-2.0) Calcium Level 8.8 mg/dL (8.5-10.1) Total Bilirubin 0.4 mg/dL (0.2-1.0) Aspartate Amino Transf (AST/SGOT) 16 U/L (15-37) Alanine Aminotransferase (ALT/SGPT) 19 U/L (16-63) Alkaline Phosphatase 93 U/L (46-116) Total Protein 7.2 g/dL (6.4-8.2) Albumin 2.8 g/dL (3.4-5.0) Albumin/Globulin Ratio 0.6 (1.0-1.7) Procalcitonin 19.82 ng/mL (0.00-0.10) Influenza Type A Antigen Negative (NEGATIVE) Influenza Type B Antigen Positive (NEGATIVE) O2 Saturation 92 % (92-99) Arterial Blood pH 7.36 (7.35-7.45) Arterial Blood pCO2 at Patient Temp 24 mmHg (35-46) Arterial Blood pO2 at Patient Temp 74 mmHg (65-108) Arterial Blood HCO3 13 mmol/L (21-28) Arterial Blood Base Excess -10 mmol/L (-3-3) Troponin I Quantitative < 0.017 ng/mL (0.000-0.055) Test 07/31/19 04:35 White Blood Count 7.4 x10^3/uL (4.0-11.0) Red Blood Count 4.30 x10^6/uL (4.30-5.70) Hemoglobin 11.9 g/dL (13.0-17.5) Hematocrit 35.9 % (39.0-53.0) Mean Corpuscular Volume 84 fL (79-100) Mean Corpuscular Hemoglobin 28 pg (25-35) Mean Corpuscular Hemoglobin Concent 33 g/dL (31-37) Red Cell Distribution Width 17.7 % (11.5-14.5) Platelet Count 207 x10^3/uL (140-400) Neutrophils (%) (Auto) 79 % (31-73) Lymphocytes (%) (Auto) 8 % (24-48) Monocytes (%) (Auto) 13 % (0-9) Eosinophils (%) (Auto) 0 % (0-3) Basophils (%) (Auto) 0 % (0-3) Neutrophils # (Auto) 5.8 x10^3/uL (1.8-7.7) Lymphocytes # (Auto) 0.6 x10^3/uL (1.0-4.8) Monocytes # (Auto) 1.0 x10^3/uL (0.0-1.1) Eosinophils # (Auto) 0.0 x10^3/uL (0.0-0.7) Basophils # (Auto) 0.0 x10^3/uL (0.0-0.2) Sodium Level 135 mmol/L (136-145) Potassium Level 4.2 mmol/L (3.5-5.1) Chloride Level 90 mmol/L (98-107) Carbon Dioxide Level 16 mmol/L (21-32) Anion Gap 29 (6-14) Blood Urea Nitrogen 210 mg/dL (8-26) Creatinine 17.1 mg/dL (0.7-1.3) Estimated GFR (Cockcroft-Gault) 2.8 BUN/Creatinine Ratio 12 (6-20) Glucose Level 173 mg/dL (70-99) Calcium Level 7.7 mg/dL (8.5-10.1) Total Bilirubin 0.3 mg/dL (0.2-1.0) Aspartate Amino Transf (AST/SGOT) 13 U/L (15-37) Alanine Aminotransferase (ALT/SGPT) 17 U/L (16-63) Alkaline Phosphatase 62 U/L (46-116) Troponin I Quantitative 0.080 ng/mL (0.000-0.055) Total Protein 5.4 g/dL (6.4-8.2) Albumin 1.9 g/dL (3.4-5.0) Albumin/Globulin Ratio 0.5 (1.0-1.7) Review All relevant outside records, renal labs, imaging studies, telemetry/EKG's were reviewed. Images Images Comparison: September 21, 2018 Findings: Patchy bibasilar opacities. Right chest wall port, unchanged. No pneumothorax. Possible small left pleural effusion. Decreased right upper lobe patchy opacity. Unchanged heart size. Impression: 1. Patchy bibasilar opacities, may represent atelectasis or consolidations. 2. Possible small left pleural effusion. 3. Decreased right upper lobe bandlike opacity. ABENA HENNESSY MD Jul 31, 2019 12:23
[2019-07-31] MEDS ORDERED: IV NORMAL SALINE 500ML BAG 500 ML IV PRN (12:30)
[2019-07-31] MEDS: IV RINGERS,LACTATED 1000ML 1,000 ML IV SCH (13:10)
--- NOTE | 2019-07-31 14:04 | RAD ---
Bilateral renal ultrasound complete: Reason for examination: THAD. The visualized portions of the inferior vena cava appears to be patent. The abdominal aorta is poorly visualized due to bowel gas. The right kidney measures 12.8 x 5.7 x 5.7 cm in greatest dimension and shows normal cortical medullary differentiation. There is good vascular flow. No renal masses or hydronephrosis are seen. The left kidney measures 12.9 x 5.4 x 4.4 cm in greatest dimension and shows normal cortical medullary differentiation and good vascular flow. No renal masses or hydronephrosis are seen. The bladder distends normally shows no wall thickening or masses and bilateral ureteral jets are present. IMPRESSION: No focal abnormality seen in the kidneys or bladder. Electronically signed by: Alysa Pedro MD (07/31/2019 2:01 PM) [id number]
--- NOTE | 2019-07-31 14:15 | PDOC1 ---
History and Physical Date of Admission: Date of Admission DATE: 07/31/19 TIME: 14:12 Chief Complaint: Problems: (1) Bowel obstruction (2) Colonic mass (3) Hypotension (4) Colonic obstruction (5) Renal failure (6) Sepsis (7) Abscess of flank (8) Acute renal failure (9) Septic shock (10) Influenza (11) Pneumonia Chief Complain: Weakness, diarrhea shortness of breath cough History of Present Illness: HPI: This is a 64-year-old white male well-known to my service He has a history of colon cancer had a colectomy in 2015 Last night presented with shortness of breath weak cough diarrhea and was hypoxic at 88% He was actually brought in by EMS after his sister dialed 911 Blood pressure was critically low at 70 systolically Rated his symptoms as 7 out of 10 This been coming on for several days He increase his home meds but that didn't help Describes his symptoms as irritating While in the ER he was noted to have influenza and possible sepsis I discussed the case with ER physician we have admitted the patient with consultation to infectious disease Past Medical/Surgical History: PMH/PSH: Past Medical History: Cancer, Constipation, Hypertension, Other Additional Past Medical Histor: heart murmur (patent ductus),colon ca Past Surgical History: Other Additional Past Surgical Histo: inguinal hernia x3,umbilical hernia,bowel resection/colostomy Alcohol Use: None Drug Use: None Allergies: Allergies: Coded Allergies: No Known Drug Allergies (Unverified , 10/08/18) Family History: Family History: Colon cancer Social History: Social Hisoty: He does not currently drink smoke or take drugs Current Medications: Current Medications Current Medications Ceftriaxone Sodium (Rocephin) 1 gm 1X ONCE IVP Last administered on 07/30/19at 19:35; Start 07/30/19 at 19:30; Stop 07/30/19 at 19:31; Status DC Sodium Chloride 1,000 ml @ 1,000 mls/hr 1X ONCE IV Last administered on 07/30/19at 19:31; Start 07/30/19 at 19:30; Stop 07/30/19 at 20:29; Status DC Ondansetron HCl (Zofran) 4 mg 1X ONCE IVP Last administered on 07/30/19at 19:34; Start 07/30/19 at 19:30; Stop 07/30/19 at 19:31; Status DC Norepinephrine Bitartrate 8 mg/ Dextrose 258 ml @ 15.383 mls/ hr 1X ONCE IV Last administered on 07/30/19at 20:55; Start 07/30/19 at 20:30; Stop 07/31/19 at 13:16; Status DC Sodium Chloride 2,190 ml @ 2,190 mls/hr Q1H IV Last administered on 07/30/19at 21:39; Start 07/30/19 at 21:30; Stop 07/30/19 at 21:40; Status DC Vancomycin HCl (Vanco Per Pharmacy) 1 each PRN DAILY PRN MC SEE COMMENTS Last a dministered on 07/31/19at 05:38; Start 07/30/19 at 21:30; Stop 07/31/19 at 09:56; Status DC Levofloxacin/ Dextrose 150 ml @ 100 mls/hr 1X ONCE IV Last administered on 07/30/19at 22:02; Start 07/30/19 at 22:00; Stop 07/30/19 at 23:29; Status DC Sodium Chloride 1,000 ml @ 1,000 mls/hr Q1H IV Last administered on 07/30/19at 22:30; Start 07/30/19 at 21:40; Stop 07/30/19 at 23:28; Status DC Vancomycin HCl 2 gm/Sodium Chloride 500 ml @ 250 mls/hr 1X ONCE IV Last administered on 07/30/19at 21:51; Start 07/30/19 at 22:00; Stop 07/30/19 at 23:59; Status DC Sodium Bicarbonate 50 meq/Dextrose 1,050 ml @ 125 mls/hr 1X ONCE IV Last admi nistered on 07/31/19at 00:32; Start 07/30/19 at 22:30; Stop 07/31/19 at 06:53; Status DC Ondansetron HCl (Zofran) 4 mg PRN Q8HRS PRN IV NAUSEA/VOMITING 1ST CHOICE; Start 07/30/19 at 22:30; Stop 07/31/19 at 22:29 Acetaminophen (Tylenol) 650 mg PRN Q4HRS PRN PO FEVER; Start 07/30/19 at 22:30; Stop 07/31/19 at 22:29 Vancomycin HCl (Vancomycin Random Level) 1 each 1X ONCE MC ; Start 08/01/19 at 22:00; Stop 08/01/19 at 22:01; Status Cancel Piperacillin Sod/ Tazobactam Sod (Zosyn Per Pharmacy) 1 each PRN DAILY PRN MC SEE COMMENTS; Start 07/31/19 at 10:00 Piperacillin Sod/ Tazobactam Sod 2.25 gm/Sodium Chloride 50 ml @ 100 mls/hr Q8HRS IV Last administered on 07/31/19at 10:44; Start 07/31/19 at 10:00 Ringer's Solution 1,000 ml @ 100 mls/hr Q10H IV Last administered on 07/31/19at 13:10; Start 07/31/19 at 12:30 Sodium Chloride 500 ml @ 0 mls/hr QID PRN IV UO< 30cc/hr over previous 6hrs; Start 07/31/19 at 12:30 Active Scripts Active Potassium Chloride 20 Meq Tab.er.prt 1 Tab PO DAILY Reported Eliquis (Apixaban) 5 Mg Tablet 5 Mg PO BID Potassium Chloride 20 Meq Tablet.er 20 Meq PO DAILY Zofran (Ondansetron Hcl) 4 Mg Tablet 1 Tab PO Q6HRS Morphine Sulfate 15 Mg Tablet 2 Mg IV Q2HR [eraxis] 100 Mg DAILY Meropenem 500 Mg Vial 500 Mg IV Q6HRS Lisinopril 20 Mg Tablet 10 Mg PO DAILY ROS: Review of Systems Review of System REVIEW OF SYSTEMS: GENERAL: Complains of weakness SKIN: No bruising, hair changes or rashes. EYES: No blurred, double or loss of vision. NOSE AND THROAT: No history of nosebleeds, hoarseness or sore throat. HEART: No history of palpitations, chest pain or shortness of breath on exertion. LUNGS: Complains of shortness of breath and cough GASTROINTESTINAL: Complains of intermittent diarrhea GENITOURINARY: No history of frequency, urgency, hesitancy or nocturia. NEUROLOGIC: Denies history of numbness, tingling, or tremor. PSYCHIATRIC: No history of panic, anxiety or depression. ENDOCRINE: No history of heat or cold intolerance, polyuria or polydipsia. EXTREMITIES: Denies joint pain, pain on walking or stiffness. Physical Exam: Vital Signs: Vital Signs Date Time Temp Pulse Resp B/P (MAP) Pulse Ox O2 Delivery O2 Flow Rate FiO2 07/31/19 13:00 97 25 83/53 (63) 95 Nasal Cannula 4.0 07/31/19 11:00 98.3 98.3 Physcial Exam: GEN: No apparent distress. Alert and oriented HEENT: Normal cephalic, atraumatic, external auditory canals are patent EYES: Extraocular muscles are intact, pupil are equally round and reactive to light and accommodation MUSCULOSKELETAL: Well developed , well nourished, good range of motion ENDOCRINE: No thyromegaly was palpated LYMPHATICS: No cervical chain or axillary nodes were noted HEMATOPOIETIC: No bruising NECK: Supple, no JVD, no thyromegaly was noted LUNGS: Clear to auscultation in all lung saleh without rhonchi or wheezing HEART: RRR, S!, S2 present. Peripheral pulses intact, no obvious murmurs noted ABDOMEN: Soft, nontender. Positive bowel sounds, no organomegaly, normal bowel sounds EXTREMITIES: Without clubbing, cyanosis, or edema. Pedal pulses intact. Negative Homans sign NEUROLOGIC: Normal speech and tone. A&O x 3, moves all extremities, no obvious focal deficits PSYCHIATRIC: Normal affect, normal mood. Stable SKIN: No ulcerations or rashes, good skin turgor, no jaundice VASCULAR: Good capillary refill, neurovascular bundle appears to be intact Labs: Labs: Laboratory Tests Test 07/30/19 19:24 07/30/19 19:50 07/30/19 20:16 07/31/19 00:20 White Blood Count 10.1 x10^3/uL (4.0-11.0) Red Blood Count 5.22 x10^6/uL (4.30-5.70) Hemoglobin 14.5 g/dL (13.0-17.5) Hematocrit 43.9 % (39.0-53.0) Mean Corpuscular Volume 84 fL (79-100) Mean Corpuscular Hemoglobin 28 pg (25-35) Mean Corpuscular Hemoglobin Concent 33 g/dL (31-37) Red Cell Distribution Width 17.3 % (11.5-14.5) Platelet Count 314 x10^3/uL (140-400) Neutrophils (%) (Auto) 95 % (31-73) Lymphocytes (%) (Auto) 5 % (24-48) Monocytes (%) (Auto) 0 % (0-9) Eosinophils (%) (Auto) 0 % (0-3) Basophils (%) (Auto) 0 % (0-3) Neutrophils # (Auto) 9.6 x10^3/uL (1.8-7.7) Lymphocytes # (Auto) 0.5 x10^3/uL (1.0-4.8) Monocytes # (Auto) 0.0 x10^3/uL (0.0-1.1) Eosinophils # (Auto) 0.0 x10^3/uL (0.0-0.7) Basophils # (Auto) 0.0 x10^3/uL (0.0-0.2) Segmented Neutrophils % 51 % (35-66) Band Neutrophils % 23 % (0-9) Lymphocytes % 10 % (24-48) Monocytes % 14 % (0-10) Metamyelocytes % 1 % (0-0) Myelocytes % 1 % (0-0) Toxic Granulation Present Platelet Estimate Adequate (ADEQUATE) Poikilocytosis Slight Anisocytosis Slight D-Dimer (Gabriela) 3.85 ug/mlFEU (0.00-0.50) Sodium Level 134 mmol/L (136-145) Potassium Level 5.0 mmol/L (3.5-5.1) Chloride Level 81 mmol/L (98-107) Carbon Dioxide Level 15 mmol/L (21-32) Anion Gap 38 (6-14) Blood Urea Nitrogen 216 mg/dL (8-26) Creatinine 15.1 mg/dL (0.7-1.3) Estimated GFR (Cockcroft-Gault) 3.3 BUN/Creatinine Ratio 14 (6-20) Glucose Level 221 mg/dL (70-99) Lactic Acid Level 2.6 mmol/L (0.4-2.0) 1.0 mmol/L (0.4-2.0) Calcium Level 8.8 mg/dL (8.5-10.1) Total Bilirubin 0.4 mg/dL (0.2-1.0) Aspartate Amino Transf (AST/SGOT) 16 U/L (15-37) Alanine Aminotransferase (ALT/SGPT) 19 U/L (16-63) Alkaline Phosphatase 93 U/L (46-116) Total Protein 7.2 g/dL (6.4-8.2) Albumin 2.8 g/dL (3.4-5.0) Albumin/Globulin Ratio 0.6 (1.0-1.7) Procalcitonin 19.82 ng/mL (0.00-0.10) Influenza Type A Antigen Negative (NEGATIVE) Influenza Type B Antigen Positive (NEGATIVE) O2 Saturation 92 % (92-99) Arterial Blood pH 7.36 (7.35-7.45) Arterial Blood pCO2 at Patient Temp 24 mmHg (35-46) Arterial Blood pO2 at Patient Temp 74 mmHg (65-108) Arterial Blood HCO3 13 mmol/L (21-28) Arterial Blood Base Excess -10 mmol/L (-3-3) Troponin I Quantitative < 0.017 ng/mL (0.000-0.055) Test 07/31/19 04:35 White Blood Count 7.4 x10^3/uL (4.0-11.0) Red Blood Count 4.30 x10^6/uL (4.30-5.70) Hemoglobin 11.9 g/dL (13.0-17.5) Hematocrit 35.9 % (39.0-53.0) Mean Corpuscular Volume 84 fL (79-100) Mean Corpuscular Hemoglobin 28 pg (25-35) Mean Corpuscular Hemoglobin Concent 33 g/dL (31-37) Red Cell Distribution Width 17.7 % (11.5-14.5) Platelet Count 207 x10^3/uL (140-400) Neutrophils (%) (Auto) 79 % (31-73) Lymphocytes (%) (Auto) 8 % (24-48) Monocytes (%) (Auto) 13 % (0-9) Eosinophils (%) (Auto) 0 % (0-3) Basophils (%) (Auto) 0 % (0-3) Neutrophils # (Auto) 5.8 x10^3/uL (1.8-7.7) Lymphocytes # (Auto) 0.6 x10^3/uL (1.0-4.8) Monocytes # (Auto) 1.0 x10^3/uL (0.0-1.1) Eosinophils # (Auto) 0.0 x10^3/uL (0.0-0.7) Basophils # (Auto) 0.0 x10^3/uL (0.0-0.2) Sodium Level 135 mmol/L (136-145) Potassium Level 4.2 mmol/L (3.5-5.1) Chloride Level 90 mmol/L (98-107) Carbon Dioxide Level 16 mmol/L (21-32) Anion Gap 29 (6-14) Blood Urea Nitrogen 210 mg/dL (8-26) Creatinine 17.1 mg/dL (0.7-1.3) Estimated GFR (Cockcroft-Gault) 2.8 BUN/Creatinine Ratio 12 (6-20) Glucose Level 173 mg/dL (70-99) Calcium Level 7.7 mg/dL (8.5-10.1) Total Bilirubin 0.3 mg/dL (0.2-1.0) Aspartate Amino Transf (AST/SGOT) 13 U/L (15-37) Alanine Aminotransferase (ALT/SGPT) 17 U/L (16-63) Alkaline Phosphatase 62 U/L (46-116) Troponin I Quantitative 0.080 ng/mL (0.000-0.055) Total Protein 5.4 g/dL (6.4-8.2) Albumin 1.9 g/dL (3.4-5.0) Albumin/Globulin Ratio 0.5 (1.0-1.7) Laboratory Tests Test 07/30/19 19:24 07/30/19 19:50 07/30/19 20:16 07/31/19 00:20 White Blood Count 10.1 x10^3/uL (4.0-11.0) Red Blood Count 5.22 x10^6/uL (4.30-5.70) Hemoglobin 14.5 g/dL (13.0-17.5) Hematocrit 43.9 % (39.0-53.0) Mean Corpuscular Volume 84 fL (79-100) Mean Corpuscular Hemoglobin 28 pg (25-35) Mean Corpuscular Hemoglobin Concent 33 g/dL (31-37) Red Cell Distribution Width 17.3 % (11.5-14.5) Platelet Count 314 x10^3/uL (140-400) Neutrophils (%) (Auto) 95 % (31-73) Lymphocytes (%) (Auto) 5 % (24-48) Monocytes (%) (Auto) 0 % (0-9) Eosinophils (%) (Auto) 0 % (0-3) Basophils (%) (Auto) 0 % (0-3) Neutrophils # (Auto) 9.6 x10^3/uL (1.8-7.7) Lymphocytes # (Auto) 0.5 x10^3/uL (1.0-4.8) Monocytes # (Auto) 0.0 x10^3/uL (0.0-1.1) Eosinophils # (Auto) 0.0 x10^3/uL (0.0-0.7) Basophils # (Auto) 0.0 x10^3/uL (0.0-0.2) Segmented Neutrophils % 51 % (35-66) Band Neutrophils % 23 % (0-9) Lymphocytes % 10 % (24-48) Monocytes % 14 % (0-10) Metamyelocytes % 1 % (0-0) Myelocytes % 1 % (0-0) Toxic Granulation Present Platelet Estimate Adequate (ADEQUATE) Poikilocytosis Slight Anisocytosis Slight D-Dimer (Gabriela) 3.85 ug/mlFEU (0.00-0.50) Sodium Level 134 mmol/L (136-145) Potassium Level 5.0 mmol/L (3.5-5.1) Chloride Level 81 mmol/L (98-107) Carbon Dioxide Level 15 mmol/L (21-32) Anion Gap 38 (6-14) Blood Urea Nitrogen 216 mg/dL (8-26) Creatinine 15.1 mg/dL (0.7-1.3) Estimated GFR (Cockcroft-Gault) 3.3 BUN/Creatinine Ratio 14 (6-20) Glucose Level 221 mg/dL (70-99) Lactic Acid Level 2.6 mmol/L (0.4-2.0) 1.0 mmol/L (0.4-2.0) Calcium Level 8.8 mg/dL (8.5-10.1) Total Bilirubin 0.4 mg/dL (0.2-1.0) Aspartate Amino Transf (AST/SGOT) 16 U/L (15-37) Alanine Aminotransferase (ALT/SGPT) 19 U/L (16-63) Alkaline Phosphatase 93 U/L (46-116) Total Protein 7.2 g/dL (6.4-8.2) Albumin 2.8 g/dL (3.4-5.0) Albumin/Globulin Ratio 0.6 (1.0-1.7) Procalcitonin 19.82 ng/mL (0.00-0.10) Influenza Type A Antigen Negative (NEGATIVE) Influenza Type B Antigen Positive (NEGATIVE) O2 Saturation 92 % (92-99) Arterial Blood pH 7.36 (7.35-7.45) Arterial Blood pCO2 at Patient Temp 24 mmHg (35-46) Arterial Blood pO2 at Patient Temp 74 mmHg (65-108) Arterial Blood HCO3 13 mmol/L (21-28) Arterial Blood Base Excess -10 mmol/L (-3-3) Troponin I Quantitative < 0.017 ng/mL (0.000-0.055) Test 07/31/19 04:35 White Blood Count 7.4 x10^3/uL (4.0-11.0) Red Blood Count 4.30 x10^6/uL (4.30-5.70) Hemoglobin 11.9 g/dL (13.0-17.5) Hematocrit 35.9 % (39.0-53.0) Mean Corpuscular Volume 84 fL (79-100) Mean Corpuscular Hemoglobin 28 pg (25-35) Mean Corpuscular Hemoglobin Concent 33 g/dL (31-37) Red Cell Distribution Width 17.7 % (11.5-14.5) Platelet Count 207 x10^3/uL (140-400) Neutrophils (%) (Auto) 79 % (31-73) Lymphocytes (%) (Auto) 8 % (24-48) Monocytes (%) (Auto) 13 % (0-9) Eosinophils (%) (Auto) 0 % (0-3) Basophils (%) (Auto) 0 % (0-3) Neutrophils # (Auto) 5.8 x10^3/uL (1.8-7.7) Lymphocytes # (Auto) 0.6 x10^3/uL (1.0-4.8) Monocytes # (Auto) 1.0 x10^3/uL (0.0-1.1) Eosinophils # (Auto) 0.0 x10^3/uL (0.0-0.7) Basophils # (Auto) 0.0 x10^3/uL (0.0-0.2) Sodium Level 135 mmol/L (136-145) Potassium Level 4.2 mmol/L (3.5-5.1) Chloride Level 90 mmol/L (98-107) Carbon Dioxide Level 16 mmol/L (21-32) Anion Gap 29 (6-14) Blood Urea Nitrogen 210 mg/dL (8-26) Creatinine 17.1 mg/dL (0.7-1.3) Estimated GFR (Cockcroft-Gault) 2.8 BUN/Creatinine Ratio 12 (6-20) Glucose Level 173 mg/dL (70-99) Calcium Level 7.7 mg/dL (8.5-10.1) Total Bilirubin 0.3 mg/dL (0.2-1.0) Aspartate Amino Transf (AST/SGOT) 13 U/L (15-37) Alanine Aminotransferase (ALT/SGPT) 17 U/L (16-63) Alkaline Phosphatase 62 U/L (46-116) Troponin I Quantitative 0.080 ng/mL (0.000-0.055) Total Protein 5.4 g/dL (6.4-8.2) Albumin 1.9 g/dL (3.4-5.0) Albumin/Globulin Ratio 0.5 (1.0-1.7) Images: Images PATIENT: KELLY DONOVAN ACCOUNT: [id number] : 1955 LOCATION: ER AGE: 64 SEX: M EXAM STATUS: PRE ER ORD. PHYSICIAN: RIYA MALLORY MD REASON: SOB, hypotensino PROCEDURE: PORTABLE CHEST 1V PORTABLE CHEST 1V History: Shortness of breath. Hypertension. Comparison: September 21, 2018 Findings: Patchy bibasilar opacities. Right chest wall port, unchanged. No pneumothorax. Possible small left pleural effusion. Decreased right upper lobe patchy opacity. Unchanged heart size. Impression: 1. Patchy bibasilar opacities, may represent atelectasis or consolidations. 2. Possible small left pleural effusion. 3. Decreased right upper lobe bandlike opacity. Assessment/Plan Assessment/Plan Septic shock, present on admission. Hypothermia. Influenza B. Acute kidney injury. Colon cancer, undergoing chemotherapy. 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 Critically ill. Plan ICU monitoring Zyvox Tamiflu Trend labs Home meds DVT prophylaxis Full code Appreciate subspecialist input TORIN DU III DO Jul 31, 2019 14:15
[2019-07-31] MEDS ORDERED: OSELTAMIVIR 30 MG CAPSULE PO SCH (15:00)
[2019-07-31] MEDS ORDERED: OSELTAMIVIR 30 MG CAPSULE PO ONE (15:00)
[2019-07-31] MEDS ORDERED: DAPTOmycin (GENERIC) IVPB 500 MG in IV NORMAL SALINE 50ML 50 ML IV ONE (17:30)
[2019-08-01] VITALS (13 sets, daily range): BP systolic 81–140; BP diastolic 45–74
[2019-08-01] MEDS: IV RINGERS,LACTATED 1000ML 1,000 ML IV SCH ×3 (01:08→22:30)
[2019-08-01] MEDS: PIPERACILLIN/TAZOBACTAM 2.25 GM in IV NORMAL SALINE 50ML 50 ML IV SCH ×3 (05:34→22:30)
--- NOTE | 2019-08-01 06:39 | NUR ---
Patient c/o headache again. Call to Dr. Winslow, received order for X1 dose of Toradol. Toradol given per order. Call light in reach. Addendum: 08/01/19 at 0704 by CHIO DIAMOND RN Error in charting. Wrong Patient.
--- NOTE | 2019-08-01 08:41 | PDOC ---
Infectious Disease Note Subjective Subjective Feeling pretty good this morning, hungry Increase urination Denies pain/F/C/SOA Vital Sign Vital Signs Vital Signs Date Time Temp Pulse Resp B/P (MAP) Pulse Ox O2 Delivery O2 Flow Rate FiO2 08/01/19 07:00 93 16 107/56 (73) 98 Nasal Cannula 2.0 08/01/19 03:00 97.8 97.8 Physical Exam PHYSICAL EXAM GENERAL: Propped up in bed, alert eating HEENT: Pupils equally round. Normal conjunctivae. Oropharynx pink and dry. Poor dentition. NECK: Supple. LUNGS: Diminished aeration, nonlabored. HEART: S1, S2 regular. ABDOMEN: Soft, nontender, bowel sounds with ostomy. Midline abdominal wound scabbed, no signs of infection. EXTREMITIES: No gross edema or cyanosis. SKIN: Warm to touch without signs of rash. NEUROLOGIC: Alert and answering questions appropriately. Right-sided chest Port-A-Cath without signs of any complications. Labs Micro 07/30. BLOOD CULTURE Final GRAM POSITIVE COCCI IN CLUSTERS 2 SETS DRAWN ON Jun, 3 OF 4 POSITIVE 07/31. BLOOD CULTURE Final GRAM POSITIVE COCCI IN CLUSTERS 1 SET DRAWN ON 07/31/19, 1 OF 2 POSITIVE Objective Assessment Septic shock, POA now off pressors GPC bacteremia 07/30 and 07/31 -Port in place Influenza B Hypothermia - improved THAD Colon cancer undergoing chemo at [facility]. Port-a-cath in place. 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 Clarke at [facility] Plan Plan of Care Tamiflu, renal dosing, times one dose 07/31 Continue dapto (added 07/31) Continue Zosyn, renal dosing Last dose vancomycin 07/31 Monitor labs and VS f/u cultures Maintain aspiration precautions Local wound care Droplet precautions D/w nursing Critically ill Attending Co-Sign The patient was seen and interviewed as well as examined at the bedside. The chart was reviewed. The case was discussed. Agree with the plan of care. VILMA MOROCHO APRN Aug 01, 2019 08:41 MARCELO HENNESSY MD Aug 01, 2019 11:38
[2019-08-01 08:53] LABS: HEMATOCRIT 34.8 % (39.0-53.0); HEMOGLOBIN 11.7 g/dL (13.0-17.5); RED BLOOD COUNT 4.1 x10^6/uL (4.30-5.70); RED CELL DISTRIBUTION WIDTH 17.3 % (11.5-14.5); WHITE BLOOD COUNT 9.6 x10^3/uL (4.0-11.0)
[2019-08-01 09:20] LABS: ALBUMIN 1.7 g/dL (3.4-5.0); ALBUMIN/GLOBULIN RATIO 0.4 (1.0-1.7); CALCIUM 8.8 mg/dL (8.5-10.1); CREATININE 17.5 mg/dL (0.7-1.3); GFR 2.7; MAGNESIUM 2.8 mg/dL (1.8-2.4); POTASSIUM 4.4 mmol/L (3.5-5.1); TOTAL BILIRUBIN 0.2 mg/dL (0.2-1.0); TOTAL PROTEIN 5.8 g/dL (6.4-8.2)
--- NOTE | 2019-08-01 09:23 | PDOC ---
SUBJECTIVE ROS AK I, possible ATN Patient apparently feeling a little better today. He is starting to urinate some. Denies shortness of breath cough phlegm sputum production per se doesn't positive blood cultures. It appears that the IV fluid boluses as ordered were not administered. CVS: no Orthopnea, no CP RESP: no SOB, no GARRISON GI: no Nausea, no Vomiting : no Dysuria, no Urgency OBJECTIVE Vital Signs Vital Signs Date Time Temp Pulse Resp B/P (MAP) Pulse Ox O2 Delivery O2 Flow Rate FiO2 08/01/19 07:00 93 16 107/56 (73) 98 Nasal Cannula 2.0 08/01/19 03:00 97.8 97.8 I & 0 Intake and Output 08/01/19 07:00 Intake Total 2020 ml Output Total 925 ml Balance 1095 ml Intake Oral 560 ml IV Total 1460 ml Output Urine Total 225 ml Stool Total 700 ml PHYSICAL EXAM Physical Exam General Appearance: Awake Alert Oriented x 3 In no Distress Eyes: VIsion Unchanged Conjunctiva Normal EN: No EN Drainage Mucous Memb. dryish Neck: no JVD no JVP Supple no Thyromegaly CVS: S1 S2 no Murmur No Gallop No Rub no Edema Resp: no Rales no Rhonchi no Acc. Muscle use GI: BS hypoactive NO Bruit Non Tender Non Distended, right upper quadrant colostomy with dark liquid stool : no CVA tenderness; no Suprapubic Tenderness SKIN: no Rashes Breast Exam deferred Mu.Sk: Adequate ROM no Muscle Atrophy Heme: Unable to palpate Obvious LAD no Splenomegaly NEURO: Good Strength and Tone Cranial Nerves II - XII grossly intact Psych: not Depressed no Active hallucination Assessment & Plan Acute kidney injury: Appears to be mostly associated with severe intravascular volume depletion we'll hence continue IV fluids as ordered. Will need to be gentle given positive flu B testing and abnormal chest x-ray to begin with. No uremic symptoms to initiate dialysis currently. Discussed with patient regarding possible need for dialysis if fluids alone did not treat his renal failure Oligo anuria: Cannot rule out ATN. Continue IV fluids as ordered Severe intravascular volume depletion: Gentle IV fluids as ordered. Severe metabolic acidosis with wide anion gap: IV bicarbonate Hypocalcemia: Corrects for severe hypoalbuminemia Hypoalbuminemia: Presumably associated with metastatic disease to the liver. IV albumin will also be added to help with volume resuscitation Possible sepsis: (G positive bacteremia is noted )Antibiotics per infectious disease physicians. He does have a port in place Anemia: Hemoglobin dropped from 14.5-11.7 suspect this is due to intravascular volume depletion at presentation and rehydration This note was partially created using [employer] voice recognition system in a noisy environment with significant background conversation. I have attempted to proofread this note however inadvertent typos may be missed. COMMENT/RELEVANT DATA Meds Current Medications Medications (Trade) Dose Ordered Sig/Joseph Start Time Stop Time Status Last Admin Dose Admin Acetaminophen (Tylenol) 650 mg PRN Q4HRS PRN 07/30/19 22:30 07/31/19 22:29 DC Ceftriaxone Sodium (Rocephin) 1 gm 1X ONCE 07/30/19 19:30 07/30/19 19:31 DC 07/30/19 19:35 1 GM Daptomycin 500 mg/ Sodium Chloride 50 ml @ 100 mls/hr 1X ONCE 07/31/19 17:30 07/31/19 17:59 DC 07/31/19 18:35 100 MLS/HR Levofloxacin/ Dextrose 150 ml @ 100 mls/hr 1X ONCE 07/30/19 22:00 07/30/19 23:29 DC 07/30/19 22:02 100 MLS/HR Norepinephrine Bitartrate 8 mg/ Dextrose 258 ml @ 15.383 mls/ hr 1X ONCE 07/30/19 20:30 07/31/19 13:16 DC 07/30/19 20:55 1.875 MLS/HR Ondansetron HCl (Zofran) 4 mg PRN Q8HRS PRN 07/30/19 22:30 07/31/19 22:29 DC Oseltamivir Phosphate (Tamiflu) 30 mg 1X ONCE 07/31/19 15:00 07/31/19 15:01 DC 07/31/19 17:29 30 MG Piperacillin Sod/ Tazobactam Sod (Zosyn Per Pharmacy) 1 each PRN DAILY PRN 07/31/19 10:00 Piperacillin Sod/ Tazobactam Sod 2.25 gm/Sodium Chloride 50 ml @ 100 mls/hr Q8HRS 07/31/19 10:00 08/01/19 05:34 100 MLS/HR Ringer's Solution 1,000 ml @ 100 mls/hr Q10H 07/31/19 12:30 08/01/19 01:08 100 MLS/HR Sodium Bicarbonate 50 meq/Dextrose 1,050 ml @ 125 mls/hr 1X ONCE 07/30/19 22:30 07/31/19 06:53 DC 07/31/19 00:32 125 MLS/HR Sodium Chloride 500 ml @ 0 mls/hr QID PRN 07/31/19 12:30 Vancomycin HCl (Vanco Per Pharmacy) 1 each PRN DAILY PRN 07/30/19 21:30 07/31/19 09:56 DC 07/31/19 05:38 1 EACH Vancomycin HCl (Vancomycin Random Level) 1 each 1X ONCE 08/01/19 22:00 08/01/19 22:01 Cancel Vancomycin HCl 2 gm/Sodium Chloride 500 ml @ 250 mls/hr 1X ONCE 07/30/19 22:00 07/30/19 23:59 DC 07/30/19 21:51 250 MLS/HR Lab Laboratory Tests Test 08/01/19 08:30 White Blood Count 9.6 x10^3/uL (4.0-11.0) Red Blood Count 4.10 x10^6/uL (4.30-5.70) Hemoglobin 11.7 g/dL (13.0-17.5) Hematocrit 34.8 % (39.0-53.0) Mean Corpuscular Volume 85 fL (79-100) Mean Corpuscular Hemoglobin 29 pg (25-35) Mean Corpuscular Hemoglobin Concent 34 g/dL (31-37) Red Cell Distribution Width 17.3 % (11.5-14.5) Platelet Count 218 x10^3/uL (140-400) Results All relevant outside records, renal labs, imaging studies, telemetry/EKG's were reviewed. Other Bilateral renal ultrasound complete: Reason for examination: THAD. The visualized portions of the inferior vena cava appears to be patent. The abdominal aorta is poorly visualized due to bowel gas. The right kidney measures 12.8 x 5.7 x 5.7 cm in greatest dimension and shows normal cortical medullary differentiation. There is good vascular flow. No renal masses or hydronephrosis are seen. The left kidney measures 12.9 x 5.4 x 4.4 cm in greatest dimension and shows normal cortical medullary differentiation and good vascular flow. No renal masses or hydronephrosis are seen. The bladder distends normally shows no wall thickening or masses and bilateral ureteral jets are present. IMPRESSION: No focal abnormality seen in the kidneys or bladder. ABENA HENNESSY MD Aug 01, 2019 09:23
[2019-08-01 09:39] LABS: PHOSPHORUS 14.5 mg/dL (2.6-4.7)
[2019-08-01] MEDS: ALBUMIN HUMAN 25% 100 ML IV SCH ×3 (10:16→22:29)
[2019-08-01] MEDS: SODIUM BICARB ADULT 8.4% 50 MEQ/50 ML DISP.SYRIN. IV SCH ×2 (10:16→13:03)
[2019-08-01] MEDS: DAPTOmycin (GENERIC) IVPB 450 MG in IV NORMAL SALINE 50ML 50 ML IV SCH (13:54)
--- NOTE | 2019-08-01 14:57 | PDOC ---
[employer] PROGRESS NOTE Chief Complaint Chief Complaint Septic shock, present on admission. Hypothermia. Influenza B. Acute kidney injury. Colon cancer, undergoing chemotherapy. 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 Critically ill. History of Present Illness History of Present Illness [id number] Patient seen and examined in the ICU Chart reviewed Discussed with RN He had one of 2 bottles growing gram-positive cocci (infectious disease is following) Vitals/I&O Vitals/I&O: Vital Signs Date Time Temp Pulse Resp B/P (MAP) Pulse Ox O2 Delivery O2 Flow Rate FiO2 08/01/19 12:00 93 15 98/58 (71) 95 Room Air 08/01/19 08:00 98.2 98.2 08/01/19 07:00 2.0 I & O 07/31/19 07/31/19 08/01/19 15:00 23:00 07:00 Intake Total 360 ml 1660 ml Output Total 250 ml 300 ml 375 ml Balance -250 ml 60 ml 1285 ml Physical Exam Physical Exam: GENERAL: Propped up in bed, alert eating HEENT: Pupils equally round. Normal conjunctivae. Oropharynx pink and dry. Poor dentition. NECK: Supple. LUNGS: Diminished aeration, nonlabored. HEART: S1, S2 regular. ABDOMEN: Soft, nontender, bowel sounds with ostomy. Midline abdominal wound scabbed, no signs of infection. EXTREMITIES: No gross edema or cyanosis. SKIN: Warm to touch without signs of rash. NEUROLOGIC: Alert and answering questions appropriately. Right-sided chest Port-A-Cath without signs of any complications. Lungs: Clear Labs Labs: Laboratory Tests Test 08/01/19 08:30 White Blood Count 9.6 x10^3/uL (4.0-11.0) Red Blood Count 4.10 x10^6/uL (4.30-5.70) Hemoglobin 11.7 g/dL (13.0-17.5) Hematocrit 34.8 % (39.0-53.0) Mean Corpuscular Volume 85 fL (79-100) Mean Corpuscular Hemoglobin 29 pg (25-35) Mean Corpuscular Hemoglobin Concent 34 g/dL (31-37) Red Cell Distribution Width 17.3 % (11.5-14.5) Platelet Count 218 x10^3/uL (140-400) Sodium Level 137 mmol/L (136-145) Potassium Level 4.4 mmol/L (3.5-5.1) Chloride Level 93 mmol/L (98-107) Carbon Dioxide Level 16 mmol/L (21-32) Anion Gap 28 (6-14) Blood Urea Nitrogen 205 mg/dL (8-26) Creatinine 17.5 mg/dL (0.7-1.3) Estimated GFR (Cockcroft-Gault) 2.7 BUN/Creatinine Ratio 12 (6-20) Glucose Level 130 mg/dL (70-99) Calcium Level 8.8 mg/dL (8.5-10.1) Phosphorus Level 14.5 mg/dL (2.6-4.7) Magnesium Level 2.8 mg/dL (1.8-2.4) Total Bilirubin 0.2 mg/dL (0.2-1.0) Aspartate Amino Transf (AST/SGOT) 16 U/L (15-37) Alanine Aminotransferase (ALT/SGPT) 16 U/L (16-63) Alkaline Phosphatase 66 U/L (46-116) Troponin I Quantitative 0.051 ng/mL (0.000-0.055) Total Protein 5.8 g/dL (6.4-8.2) Albumin 1.7 g/dL (3.4-5.0) Albumin/Globulin Ratio 0.4 (1.0-1.7) Review of Systems Review of Systems: Complains of hunger complains of weakness Assessment and Plan Assessmemt and Plan Problems Medical Problems: (1) Acute renal failure Status: Acute (2) Influenza Status: Acute (3) Pneumonia Status: Acute (4) Septic shock Status: Acute Septic shock, present on admission. Hypothermia. Influenza B. Acute kidney injury. Colon cancer, undergoing chemotherapy. 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 Critically ill. Plan ICU monitoring Tamiflu IV antibiotics Trend labs Home meds DVT prophylaxis Full code PT OT Appreciate subspecialist input Comment Review of Relevant I have reviewed the following items renetta (where applicable) has been applied. Medications: Current Medications Medications (Trade) Dose Ordered Sig/Joseph Route PRN Reason Start Time Stop Time Status Last Admin Dose Admin Oseltamivir Phosphate (Tamiflu) 30 mg 1X ONCE PO 07/31/19 15:00 07/31/19 15:01 DC 07/31/19 17:29 Daptomycin 500 mg/ Sodium Chloride 50 ml @ 100 mls/hr 1X ONCE IV 07/31/19 17:30 07/31/19 17:59 DC 07/31/19 18:35 Sodium Bicarbonate (Sodium Bicarb Adult 8.4% Syr) 50 meq Q2HR IV 08/01/19 10:00 08/01/19 12:01 DC 08/01/19 13:03 Albumin Human 100 ml @ 100 mls/hr TID IV 08/01/19 09:30 08/02/19 21:59 08/01/19 13:55 Daptomycin 450 mg/ Sodium Chloride 50 ml @ 100 mls/hr Q48H IV 08/01/19 13:00 08/01/19 13:54 TORIN DU III DO Aug 01, 2019 14:57
[2019-08-01] MEDS ORDERED: VANCOMYCIN RANDOM LEVEL. MC ONE (22:00)
[2019-08-02] VITALS (7 sets, daily range): BP systolic 125–171; BP diastolic 52–79
[2019-08-02] MEDS: IV RINGERS,LACTATED 1000ML 1,000 ML IV SCH ×3 (04:30→20:24)
[2019-08-02] MEDS: PIPERACILLIN/TAZOBACTAM 2.25 GM in IV NORMAL SALINE 50ML 50 ML IV SCH ×3 (05:53→22:11)
--- NOTE | 2019-08-02 08:25 | PDOC ---
PROGRESS NOTES Chief Complaint Chief Complaint Septic shock, present on admission. Hypothermia. Influenza B. Acute kidney injury. Colon cancer, undergoing chemotherapy. 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 Critically ill. History of Present Illness History of Present Illness Mr Nath is a 64 yo M PMHx infected abdominal hernia mesh associated with Prevotella bivia, history of scrotal abscess with yeast and Bacteroides, colon cancer undergoing chemotherapy at [facility], hypertension, degenerative joint disease, history of urinary tract infections p/w weakness, nausea, vomiting. He says his last treatment was a couple of weeks ago and since then has been feeling progressively weak with intermittent nausea and vomiting and increased ostomy output more than usual. He has developed a cough with some phlegm production as well. On arrival to the ER, he was hypothermic, hypotensive with bandemia and lactic acid of 2.6. Chest x-ray showed patchy bibasilar opacities and possible small left pleural effusion. He tested positive for influenza B. He was also in acute renal failure with a creatinine of 15.1 and BUN 216. He is admitted to the intensive care unit on Levophed drip. He was dosed with vancomycin, ceftriaxone, and levofloxacin. On 5L NCO2. He has a chronic abdominal wound for which he is followed by Dr. Clarke at [facility] every 3 weeks. 08/01: Patient seen and examined in the ICU. He had one of 2 bottles growing gram- positive cocci (infectious disease is following) No Overnight events. Seen bedside. He states he is feeling better. Profoundly weak, cannot even reposition himself in bed. No SOB or CP. Vitals Vitals Vital Signs Date Time Temp Pulse Resp B/P (MAP) Pulse Ox O2 Delivery O2 Flow Rate FiO2 08/02/19 07:59 98.1 91 18 139/70 (93) 96 Room Air 2.0 98.1 Physical Exam Physical Exam GENERAL: Propped up in bed, alert eating HEENT: Pupils equally round. Normal conjunctivae. Oropharynx pink and dry. Poor dentition. NECK: Supple. LUNGS: Diminished aeration, nonlabored. HEART: S1, S2 regular. ABDOMEN: Soft, nontender, bowel sounds with ostomy. Midline abdominal wound scabbed, no signs of infection. EXTREMITIES: No gross edema or cyanosis. SKIN: Warm to touch without signs of rash. NEUROLOGIC: Alert and answering questions appropriately. Right-sided chest Port-A-Cath without signs of any complications. Lungs: Clear Labs LABS Laboratory Tests Test 08/01/19 08:30 White Blood Count 9.6 x10^3/uL (4.0-11.0) Red Blood Count 4.10 x10^6/uL (4.30-5.70) Hemoglobin 11.7 g/dL (13.0-17.5) Hematocrit 34.8 % (39.0-53.0) Mean Corpuscular Volume 85 fL (79-100) Mean Corpuscular Hemoglobin 29 pg (25-35) Mean Corpuscular Hemoglobin Concent 34 g/dL (31-37) Red Cell Distribution Width 17.3 % (11.5-14.5) Platelet Count 218 x10^3/uL (140-400) Sodium Level 137 mmol/L (136-145) Potassium Level 4.4 mmol/L (3.5-5.1) Chloride Level 93 mmol/L (98-107) Carbon Dioxide Level 16 mmol/L (21-32) Anion Gap 28 (6-14) Blood Urea Nitrogen 205 mg/dL (8-26) Creatinine 17.5 mg/dL (0.7-1.3) Estimated GFR (Cockcroft-Gault) 2.7 BUN/Creatinine Ratio 12 (6-20) Glucose Level 130 mg/dL (70-99) Calcium Level 8.8 mg/dL (8.5-10.1) Phosphorus Level 14.5 mg/dL (2.6-4.7) Magnesium Level 2.8 mg/dL (1.8-2.4) Total Bilirubin 0.2 mg/dL (0.2-1.0) Aspartate Amino Transf (AST/SGOT) 16 U/L (15-37) Alanine Aminotransferase (ALT/SGPT) 16 U/L (16-63) Alkaline Phosphatase 66 U/L (46-116) Troponin I Quantitative 0.051 ng/mL (0.000-0.055) Total Protein 5.8 g/dL (6.4-8.2) Albumin 1.7 g/dL (3.4-5.0) Albumin/Globulin Ratio 0.4 (1.0-1.7) Assessment and Plan Assessmemt and Plan Problems Medical Problems: (1) Acute renal failure Status: Acute (2) Influenza Status: Acute (3) Pneumonia Status: Acute (4) Septic shock Status: Acute Comment Review of Relevant I have reviewed the following items renetta (where applicable) has been applied. Labs Laboratory Tests Test 08/01/19 08:30 White Blood Count 9.6 x10^3/uL (4.0-11.0) Red Blood Count 4.10 x10^6/uL (4.30-5.70) Hemoglobin 11.7 g/dL (13.0-17.5) Hematocrit 34.8 % (39.0-53.0) Mean Corpuscular Volume 85 fL (79-100) Mean Corpuscular Hemoglobin 29 pg (25-35) Mean Corpuscular Hemoglobin Concent 34 g/dL (31-37) Red Cell Distribution Width 17.3 % (11.5-14.5) Platelet Count 218 x10^3/uL (140-400) Sodium Level 137 mmol/L (136-145) Potassium Level 4.4 mmol/L (3.5-5.1) Chloride Level 93 mmol/L (98-107) Carbon Dioxide Level 16 mmol/L (21-32) Anion Gap 28 (6-14) Blood Urea Nitrogen 205 mg/dL (8-26) Creatinine 17.5 mg/dL (0.7-1.3) Estimated GFR (Cockcroft-Gault) 2.7 BUN/Creatinine Ratio 12 (6-20) Glucose Level 130 mg/dL (70-99) Calcium Level 8.8 mg/dL (8.5-10.1) Phosphorus Level 14.5 mg/dL (2.6-4.7) Magnesium Level 2.8 mg/dL (1.8-2.4) Total Bilirubin 0.2 mg/dL (0.2-1.0) Aspartate Amino Transf (AST/SGOT) 16 U/L (15-37) Alanine Aminotransferase (ALT/SGPT) 16 U/L (16-63) Alkaline Phosphatase 66 U/L (46-116) Troponin I Quantitative 0.051 ng/mL (0.000-0.055) Total Protein 5.8 g/dL (6.4-8.2) Albumin 1.7 g/dL (3.4-5.0) Albumin/Globulin Ratio 0.4 (1.0-1.7) Laboratory Tests Test 08/01/19 08:30 White Blood Count 9.6 x10^3/uL (4.0-11.0) Red Blood Count 4.10 x10^6/uL (4.30-5.70) Hemoglobin 11.7 g/dL (13.0-17.5) Hematocrit 34.8 % (39.0-53.0) Mean Corpuscular Volume 85 fL (79-100) Mean Corpuscular Hemoglobin 29 pg (25-35) Mean Corpuscular Hemoglobin Concent 34 g/dL (31-37) Red Cell Distribution Width 17.3 % (11.5-14.5) Platelet Count 218 x10^3/uL (140-400) Sodium Level 137 mmol/L (136-145) Potassium Level 4.4 mmol/L (3.5-5.1) Chloride Level 93 mmol/L (98-107) Carbon Dioxide Level 16 mmol/L (21-32) Anion Gap 28 (6-14) Blood Urea Nitrogen 205 mg/dL (8-26) Creatinine 17.5 mg/dL (0.7-1.3) Estimated GFR (Cockcroft-Gault) 2.7 BUN/Creatinine Ratio 12 (6-20) Glucose Level 130 mg/dL (70-99) Calcium Level 8.8 mg/dL (8.5-10.1) Phosphorus Level 14.5 mg/dL (2.6-4.7) Magnesium Level 2.8 mg/dL (1.8-2.4) Total Bilirubin 0.2 mg/dL (0.2-1.0) Aspartate Amino Transf (AST/SGOT) 16 U/L (15-37) Alanine Aminotransferase (ALT/SGPT) 16 U/L (16-63) Alkaline Phosphatase 66 U/L (46-116) Troponin I Quantitative 0.051 ng/mL (0.000-0.055) Total Protein 5.8 g/dL (6.4-8.2) Albumin 1.7 g/dL (3.4-5.0) Albumin/Globulin Ratio 0.4 (1.0-1.7) Microbiology 07/31/19 Blood Culture - Final, Complete Medications Current Medications Ceftriaxone Sodium (Rocephin) 1 gm 1X ONCE IVP Last administered on 07/30/19at 19:35; Start 07/30/19 at 19:30; Stop 07/30/19 at 19:31; Status DC Sodium Chloride 1,000 ml @ 1,000 mls/hr 1X ONCE IV Last administered on 07/30/19at 19:31; Start 07/30/19 at 19:30; Stop 07/30/19 at 20:29; Status DC Ondansetron HCl (Zofran) 4 mg 1X ONCE IVP Last administered on 07/30/19at 19:34; Start 07/30/19 at 19:30; Stop 07/30/19 at 19:31; Status DC Norepinephrine Bitartrate 8 mg/ Dextrose 258 ml @ 15.383 mls/ hr 1X ONCE IV Last administered on 07/30/19at 20:55; Start 07/30/19 at 20:30; Stop 07/31/19 at 13:16; Status DC Sodium Chloride 2,190 ml @ 2,190 mls/hr Q1H IV Last administered on 07/30/19at 21:39; Start 07/30/19 at 21:30; Stop 07/30/19 at 21:40; Status DC Vancomycin HCl (Vanco Per Pharmacy) 1 each PRN DAILY PRN MC SEE COMMENTS Last administered on 07/31/19at 05:38; Start 07/30/19 at 21:30; Stop 07/31/19 at 09:56; Status DC Levofloxacin/ Dextrose 150 ml @ 100 mls/hr 1X ONCE IV Last administered on 07/30/19at 22:02; Start 07/30/19 at 22:00; Stop 07/30/19 at 23:29; Status DC Sodium Chloride 1,000 ml @ 1,000 mls/hr Q1H IV Last administered on 07/30/19at 22:30; Start 07/30/19 at 21:40; Stop 07/30/19 at 23:28; Status DC Vancomycin HCl 2 gm/Sodium Chloride 500 ml @ 250 mls/hr 1X ONCE IV Last administered on 07/30/19at 21:51; Start 07/30/19 at 22:00; Stop 07/30/19 at 23:59; Status DC Sodium Bicarbonate 50 meq/Dextrose 1,050 ml @ 125 mls/hr 1X ONCE IV Last administered on 07/31/19at 00:32; Start 07/30/19 at 22:30; Stop 07/31/19 at 06:53; Status DC Ondansetron HCl (Zofran) 4 mg PRN Q8HRS PRN IV NAUSEA/VOMITING 1ST CHOICE; Start 07/30/19 at 22:30; Stop 07/31/19 at 22:29; Status DC Acetaminophen (Tylenol) 650 mg PRN Q4HRS PRN PO FEVER; Start 07/30/19 at 22:30; Stop 07/31/19 at 22:29; Status DC Vancomycin HCl (Vancomycin Random Level) 1 each 1X ONCE MC ; Start 08/01/19 at 22:00; Stop 08/01/19 at 22:01; Status Cancel Piperacillin Sod/ Tazobactam Sod (Zosyn Per Pharmacy) 1 each PRN DAILY PRN MC SEE COMMENTS; Start 07/31/19 at 10:00 Piperacillin Sod/ Tazobactam Sod 2.25 gm/Sodium Chloride 50 ml @ 100 mls/hr Q8HRS IV Last administered on 08/02/19at 05:53; Start 07/31/19 at 10:00 Ringer's Solution 1,000 ml @ 100 mls/hr Q10H IV Last administered on 08/01/19at 22:30; Start 07/31/19 at 12:30 Sodium Chloride 500 ml @ 0 mls/hr QID PRN IV UO< 30cc/hr over previous 6hrs Last administered on 08/01/19at 10:16; Start 07/31/19 at 12:30 Oseltamivir Phosphate (Tamiflu) 30 mg DAILY PO ; Start 07/31/19 at 15:00; Stop 08/04/19 at 09:01; Status Cancel Oseltamivir Phosphate (Tamiflu) 30 mg 1X ONCE PO Last administered on 07/31/19at 17:29; Start 07/31/19 at 15:00; Stop 07/31/19 at 15:01; Status DC Daptomycin 500 mg/ Sodium Chloride 50 ml @ 100 mls/hr 1X ONCE IV Last administered on 07/31/19at 18:35; Start 07/31/19 at 17:30; Stop 07/31/19 at 17:59; Status DC Sodium Bicarbonate (Sodium Bicarb Adult 8.4% Syr) 50 meq Q2HR IV Last administered on 08/01/19at 13:03; Start 08/01/19 at 10:00; Stop 08/01/19 at 12:01; Status DC Albumin Human 100 ml @ 100 mls/hr TID IV Last administered on 08/01/19at 22:29; Start 08/01/19 at 09:30; Stop 08/02/19 at 21:59 Daptomycin 450 mg/ Sodium Chloride 50 ml @ 100 mls/hr Q48H IV Last administered on 08/01/19at 13:54; Start 08/01/19 at 13:00 Active Scripts Active Potassium Chloride 20 Meq Tab.er.prt 1 Tab PO DAILY Reported Eliquis (Apixaban) 5 Mg Tablet 5 Mg PO BID Potassium Chloride 20 Meq Tablet.er 20 Meq PO DAILY Zofran (Ondansetron Hcl) 4 Mg Tablet 1 Tab PO Q6HRS Morphine Sulfate 15 Mg Tablet 2 Mg IV Q2HR [eraxis] 100 Mg DAILY Meropenem 500 Mg Vial 500 Mg IV Q6HRS Lisinopril 20 Mg Tablet 10 Mg PO DAILY Vitals/I & O Vital Sign - Last 24 Hours 08/01/19 08/01/19 08/01/19 08/01/19 09:00 12:00 16:00 20:00 Temp 98.0 98.0 Pulse 91 93 90 Resp 16 15 16 B/P (MAP) 120/61 (80) 98/58 (71) 100/55 (70) Pulse Ox 93 95 97 O2 Delivery Room Air Room Air Room Air Room Air O2 Flow Rate 2.0 08/01/19 08/02/19 08/02/19 08/02/19 20:50 00:45 05:30 07:59 Temp 98.2 98.1 97.5 98.1 98.2 98.1 97.5 98.1 Pulse 106 90 87 91 Resp 18 16 16 18 B/P (MAP) 140/58 (85) 141/52 (81) 138/56 (83) 139/70 (93) Pulse Ox 94 93 95 96 O2 Delivery Room Air Room Air Room Air Room Air O2 Flow Rate 2.0 2.0 Intake and Output 08/01/19 08/01/19 08/02/19 15:00 23:00 07:00 Intake Total 180 ml 480 ml Output Total 620 ml 600 ml 1450 ml Balance -440 ml -600 ml -970 ml BELTRAN SHARMA MD Aug 02, 2019 08:25
--- NOTE | 2019-08-02 09:14 | NUR ---
Wound Care: Patient seen per wound care consult. Patient is known to us from previous admissions. See wound assessment. Patient has chronic wound to abdomen from a previous hernia repair. Wound cleansed and assessed. Recommendations for Aquacel Ag, then cover with ABD pad and tape. Changing every other day. patient states he utilizes same treatment plan. Dressing applied. No other wounds noted upon complete head to toe assessment. Coccyx reddened but remains blanchable, calazime applied. Patient educated on turning and pressure relief. Patient repositioned and bilateral heels floated. Dressing change instructions left in room. bed lowered and call light in reach. Will follow patient regarding wound care.
--- NOTE | 2019-08-02 09:31 | NUR ---
IP: Pt is Influenza + requiring droplet precautions for 7 days and 24 hours without a fever whichever is longest.
[2019-08-02] MEDS: ALBUMIN HUMAN 25% 100 ML IV SCH ×3 (10:28→20:23)
--- NOTE | 2019-08-02 10:50 | PDOC ---
Infectious Disease Note Subjective: Subjective Pt says doing well had dressing done by wound team for dehisced abdo wound ( chronic ) by wound team Increase urination Denies pain/F/C/SOA Vital Signs: Vital Signs Vital Signs Date Time Temp Pulse Resp B/P (MAP) Pulse Ox O2 Delivery O2 Flow Rate FiO2 08/02/19 07:59 98.1 91 18 139/70 (93) 96 Room Air 2.0 98.1 Physical Exam: PHYSICAL EXAM GENERAL: Propped up in bed, alert eating HEENT: Pupils equally round. Normal conjunctivae. Oropharynx pink and dry. Poor dentition. NECK: Supple. LUNGS: Diminished aeration, nonlabored. HEART: S1, S2 regular. ABDOMEN: Soft, nontender, bowel sounds with ostomy. Midline abdominal wound scabbed, no signs of infection. EXTREMITIES: No gross edema or cyanosis. SKIN: Warm to touch without signs of rash. NEUROLOGIC: Alert and answering questions appropriately. Right-sided chest Port-A-Cath without signs of any complications. Medications: Inpatient Meds: Current Medications Medications (Trade) Dose Ordered Sig/Joseph Start Time Stop Time Status Last Admin Dose Admin Acetaminophen (Tylenol) 650 mg PRN Q4HRS PRN 07/30/19 22:30 07/31/19 22:29 DC Albumin Human 100 ml @ 100 mls/hr TID 08/01/19 09:30 08/02/19 21:59 08/02/19 10:28 100 MLS/HR Ceftriaxone Sodium (Rocephin) 1 gm 1X ONCE 07/30/19 19:30 07/30/19 19:31 DC 07/30/19 19:35 1 GM Daptomycin 450 mg/ Sodium Chloride 50 ml @ 100 mls/hr Q48H 08/01/19 13:00 08/01/19 13:54 100 MLS/HR Daptomycin 500 mg/ Sodium Chloride 50 ml @ 100 mls/hr 1X ONCE 07/31/19 17:30 07/31/19 17:59 DC 07/31/19 18:35 100 MLS/HR Levofloxacin/ Dextrose 150 ml @ 100 mls/hr 1X ONCE 07/30/19 22:00 07/30/19 23:29 DC 07/30/19 22:02 100 MLS/HR Norepinephrine Bitartrate 8 mg/ Dextrose 258 ml @ 15.383 mls/ hr 1X ONCE 07/30/19 20:30 07/31/19 13:16 DC 07/30/19 20:55 1.875 MLS/HR Ondansetron HCl (Zofran) 4 mg PRN Q8HRS PRN 07/30/19 22:30 07/31/19 22:29 DC Oseltamivir Phosphate (Tamiflu) 30 mg 1X ONCE 07/31/19 15:00 07/31/19 15:01 DC 07/31/19 17:29 30 MG Piperacillin Sod/ Tazobactam Sod (Zosyn Per Pharmacy) 1 each PRN DAILY PRN 07/31/19 10:00 Piperacillin Sod/ Tazobactam Sod 2.25 gm/Sodium Chloride 50 ml @ 100 mls/hr Q8HRS 07/31/19 10:00 08/02/19 05:53 100 MLS/HR Ringer's Solution 1,000 ml @ 100 mls/hr Q10H 07/31/19 12:30 08/01/19 22:30 100 MLS/HR Sodium Bicarbonate 50 meq/Dextrose 1,050 ml @ 125 mls/hr 1X ONCE 07/30/19 22:30 07/31/19 06:53 DC 07/31/19 00:32 125 MLS/HR Sodium Bicarbonate (Sodium Bicarb Adult 8.4% Syr) 50 meq Q2HR 08/01/19 10:00 08/01/19 12:01 DC 08/01/19 13:03 50 MEQ Sodium Chloride 500 ml @ 0 mls/hr QID PRN 07/31/19 12:30 08/01/19 10:16 999 MLS/HR Vancomycin HCl (Vanco Per Pharmacy) 1 each PRN DAILY PRN 07/30/19 21:30 07/31/19 09:56 DC 07/31/19 05:38 1 EACH Vancomycin HCl (Vancomycin Random Level) 1 each 1X ONCE 08/01/19 22:00 08/01/19 22:01 Cancel Vancomycin HCl 2 gm/Sodium Chloride 500 ml @ 250 mls/hr 1X ONCE 07/30/19 22:00 07/30/19 23:59 DC 07/30/19 21:51 250 MLS/HR Objective: Assessment: Septic shock, POA off pressors GPC bacteremia 07/30 and 2/ -Port in place Influenza B Hypothermia - improved THAD Colon cancer undergoing chemo at [facility]. Port-a-cath in place. 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 Clarke at [facility] Plan: Plan of Care Tamiflu, renal dosing, times one dose 07/31 Continue dapto (added 07/31) Continue Zosyn, renal dosing Last dose vancomycin 07/31 repeat bc from ba cath Ba cath may need removal Monitor labs and VS f/u cultures Maintain aspiration precautions Local wound care Droplet precautions D/w nursing Critically ill ARMINDA HENNESSY MD Aug 02, 2019 10:50
--- NOTE | 2019-08-02 11:24 | PDOC ---
SUBJECTIVE ROS No new concerns or complaints Pt says doing well, states UOP has improved OBJECTIVE Vital Signs Vital Signs Date Time Temp Pulse Resp B/P (MAP) Pulse Ox O2 Delivery O2 Flow Rate FiO2 08/02/19 07:59 98.1 91 18 139/70 (93) 96 Room Air 2.0 98.1 I & 0 Intake and Output 08/02/19 07:00 Intake Total 660 ml Output Total 2670 ml Balance -2010 ml Intake Oral 660 ml Output Urine Total 670 ml Stool Total 2000 ml PHYSICAL EXAM Physical Exam GENERAL: Propped up in bed, alert eating HEENT: Pupils equally round. Normal conjunctivae. Oropharynx dry. NECK: Supple. LUNGS: Diminished at bases , nonlabored. HEART: S1, S2 regular. ABDOMEN: Soft, nontender, ostomy +. Midline abdominal wound scabbed EXTREMITIES: No gross edema or cyanosis. SKIN: Warm to touch without signs of rash. NEUROLOGIC: Alert and answering questions appropriately. Right-sided chest Port-A-Cath DIAGNOSIS/ASSESSMENT Assessment & Plan Acute kidney injury:Suspect ATN No focal abnormality seen in the kidneys or bladder on US , Ordere UA Normal Cr in 2019 ,Required HD in 2014 x 2 , Doesnt have access No labs available from [facility] , Pt asymptomatic , states not ready for dialysis - wants to wait No labs this am- Dw RN- order stat Renal panel and UA Severe intravascular volume depletion: recd IV fluids , no improvement in renal function based on labs on 08/01 Hypocalcemia: Corrects for severe hypoalbuminemia Hypoalbuminemia: Presumably associated with metastatic disease to the liver Possible sepsis: (G positive bacteremia is noted )Antibiotics per infectious disease physicians. Hx of infected abdominal hernia mesh associated with Prevotella bivia, history of scrotal abscess with yeast and Bacteroides Colon cancer undergoing chemotherapy at [facility] history of urinary tract infections Chronic abdominal wound for which he is followed by Dr. Clarke at [facility] every 3 weeks. Anemia: Hemoglobin dropped from 14.5-11.7 suspect this is due to intravascular volume depletion at presentation and rehydration COMMENT/RELEVANT DATA Meds Current Medications Medications (Trade) Dose Ordered Sig/Joseph Start Time Stop Time Status Last Admin Dose Admin Acetaminophen (Tylenol) 650 mg PRN Q4HRS PRN 07/30/19 22:30 07/31/19 22:29 DC Albumin Human 100 ml @ 100 mls/hr TID 08/01/19 09:30 2/3/20 21:59 08/02/19 10:28 100 MLS/HR Ceftriaxone Sodium (Rocephin) 1 gm 1X ONCE 07/30/19 19:30 07/30/19 19:31 DC 07/30/19 19:35 1 GM Daptomycin 450 mg/ Sodium Chloride 50 ml @ 100 mls/hr Q48H 08/01/19 13:00 08/01/19 13:54 100 MLS/HR Daptomycin 500 mg/ Sodium Chloride 50 ml @ 100 mls/hr 1X ONCE 07/31/19 17:30 07/31/19 17:59 DC 07/31/19 18:35 100 MLS/HR Levofloxacin/ Dextrose 150 ml @ 100 mls/hr 1X ONCE 07/30/19 22:00 07/30/19 23:29 DC 07/30/19 22:02 100 MLS/HR Norepinephrine Bitartrate 8 mg/ Dextrose 258 ml @ 15.383 mls/ hr 1X ONCE 07/30/19 20:30 07/31/19 13:16 DC 07/30/19 20:55 1.875 MLS/HR Ondansetron HCl (Zofran) 4 mg PRN Q8HRS PRN 07/30/19 22:30 07/31/19 22:29 DC Oseltamivir Phosphate (Tamiflu) 30 mg 1X ONCE 07/31/19 15:00 07/31/19 15:01 DC 07/31/19 17:29 30 MG Piperacillin Sod/ Tazobactam Sod (Zosyn Per Pharmacy) 1 each PRN DAILY PRN 07/31/19 10:00 Piperacillin Sod/ Tazobactam Sod 2.25 gm/Sodium Chloride 50 ml @ 100 mls/hr Q8HRS 07/31/19 10:00 08/02/19 05:53 100 MLS/HR Ringer's Solution 1,000 ml @ 100 mls/hr Q10H 07/31/19 12:30 08/01/19 22:30 100 MLS/HR Sodium Bicarbonate 50 meq/Dextrose 1,050 ml @ 125 mls/hr 1X ONCE 07/30/19 22:30 07/31/19 06:53 DC 07/31/19 00:32 125 MLS/HR Sodium Bicarbonate (Sodium Bicarb Adult 8.4% Syr) 50 meq Q2HR 08/01/19 10:00 08/01/19 12:01 DC 08/01/19 13:03 50 MEQ Sodium Chloride 500 ml @ 0 mls/hr QID PRN 07/31/19 12:30 08/01/19 10:16 999 MLS/HR Vancomycin HCl (Vanco Per Pharmacy) 1 each PRN DAILY PRN 07/30/19 21:30 07/31/19 09:56 DC 07/31/19 05:38 1 EACH Vancomycin HCl (Vancomycin Random Level) 1 each 1X ONCE 08/01/19 22:00 08/01/19 22:01 Cancel Vancomycin HCl 2 gm/Sodium Chloride 500 ml @ 250 mls/hr 1X ONCE 07/30/19 22:00 07/30/19 23:59 DC 07/30/19 21:51 250 MLS/HR Results All relevant outside records, renal labs, imaging studies, telemetry/EKG's were reviewed. JE RIBEIRO MD Aug 02, 2019 11:24
[2019-08-02] MEDS ORDERED: RIVA20TA2 PO (14:17)
[2019-08-02 14:31] LABS: BILIRUBIN,URINE NEGATIVE (NEG); CLARITY,URINE CLEAR; COLOR,URINE YELLOW; NITRITE,URINE NEGATIVE (NEG); PH,URINE 5.5; PROTEIN,URINE >=300 mg/dL (NEG-TRACE); UROBILINOGEN,URINE 0.2 mg/dL (0.2 mg/dL)
[2019-08-02 14:51] LABS: BACTERIA,URINE FEW /HPF (0-FEW); RBC,URINE >40 /HPF (0-2); SQUAMOUS EPITHELIAL CELL,UR FEW /LPF
--- NOTE | 2019-08-02 14:54 | NUR ---
Medical information from [facility] is in patient's chart.
--- NOTE | 2019-08-02 15:46 | NUR ---
SS following for discharge planning. SS reviewed pt chart. Pt is from home and is currently on room air. PT/OT ordered. SS will continue to follow for discharge planning.
[2019-08-02] MEDS ORDERED: NON FORMULARY ITEM (Rivaroxaban (Xarelto) 20 MG) PO SCH (17:00)
[2019-08-02] MEDS: HEPARIN for SUB-Q USE 5,000 UNIT/ML VIAL. SQ SCH (20:27)
[2019-08-03] MEDS: IV RINGERS,LACTATED 1000ML 1,000 ML IV SCH ×3 (01:52→20:49)
[2019-08-03 03:00] VITALS: BP 164/76
[2019-08-03 05:26] LABS: CALCIUM 8.7 mg/dL (8.5-10.1); GFR 2.8; POTASSIUM 4.3 mmol/L (3.5-5.1)
[2019-08-03 05:33] LABS: ALBUMIN 2.7 g/dL (3.4-5.0)
[2019-08-03 05:34] LABS: PHOSPHORUS 11.8 mg/dL (2.6-4.7)
[2019-08-03] MEDS: PIPERACILLIN/TAZOBACTAM 2.25 GM in IV NORMAL SALINE 50ML 50 ML IV SCH (05:52)
[2019-08-03 07:00] VITALS: BP 158/77
--- NOTE | 2019-08-03 08:06 | PDOC ---
PROGRESS NOTES Chief Complaint Chief Complaint Septic shock, present on admission. Hypothermia. Influenza B. Acute kidney injury. Colon cancer, undergoing chemotherapy. 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 Critically ill. History of Present Illness History of Present Illness Mr Nath is a 64 yo M PMHx infected abdominal hernia mesh associated with Prevotella bivia, history of scrotal abscess with yeast and Bacteroides, colon cancer undergoing chemotherapy at [facility], hypertension, degenerative joint disease, history of urinary tract infections p/w weakness, nausea, vomiting. He says his last treatment was a couple of weeks ago and since then has been feeling progressively weak with intermittent nausea and vomiting and increased ostomy output more than usual. He has developed a cough with some phlegm production as well. On arrival to the ER, he was hypothermic, hypotensive with bandemia and lactic acid of 2.6. Chest x-ray showed patchy bibasilar opacities and possible small left pleural effusion. He tested positive for influenza B. He was also in acute renal failure with a creatinine of 15.1 and BUN 216. He is admitted to the intensive care unit on Levophed drip. He was dosed with vancomycin, ceftriaxone, and levofloxacin. On 5L NCO2. He has a chronic abdominal wound for which he is followed by Dr. Clarke at [facility] every 3 weeks. 08/01: Patient seen and examined in the ICU. He had one of 2 bottles growing gram- positive cocci (infectious disease is following) 08/02: No Overnight events. Seen bedside. He states he is feeling better. Profou ndly weak, cannot even reposition himself in bed. No SOB or CP. Discussed need for mesh removal and port removal given bacteremia - would like to f/u at [facility] with DR Clarke instead. Risk of failure and recurrence with metastatic seeding discussed. He is feeling about the same. Repeat blood cultures negative, renal function unchanged. He consents to temporary HD catheter placement for now. Still very weak, deconditioned. Vitals Vitals Vital Signs Date Time Temp Pulse Resp B/P (MAP) Pulse Ox O2 Delivery O2 Flow Rate FiO2 08/03/19 07:00 98.5 83 16 158/77 (104) 95 Room Air 98.5 08/02/19 15:59 2.0 Physical Exam Physical Exam GENERAL: Propped up in bed, alert eating HEENT: Pupils equally round. Normal conjunctivae. Oropharynx pink and dry. Poor dentition. NECK: Supple. LUNGS: Diminished aeration, nonlabored. HEART: S1, S2 regular. ABDOMEN: Soft, nontender, bowel sounds with ostomy. Midline abdominal wound scabbed, no signs of infection. EXTREMITIES: No gross edema or cyanosis. SKIN: Warm to touch without signs of rash. NEUROLOGIC: Alert and answering questions appropriately. Right-sided chest Port-A-Cath without signs of any complications. Lungs: Clear Labs LABS Laboratory Tests Test 08/02/19 14:10 08/03/19 04:00 Urine Collection Type Unknown Urine Color Yellow Urine Clarity Clear Urine pH 5.5 Urine Specific [place] 1.020 Urine Protein >=300 mg/dL (NEG-TRACE) Urine Glucose (UA) 100 mg/dL (NEG) Urine Ketones (Stick) Negative mg/dL (NEG) Urine Blood Large (NEG) Urine Nitrite Negative (NEG) Urine Bilirubin Negative (NEG) Urine Urobilinogen Dipstick 0.2 mg/dL (0.2 mg/dL) Urine Leukocyte Esterase Negative (NEG) Urine RBC >40 /HPF (0-2) Urine WBC 1-4 /HPF (0-4) Urine Squamous Epithelial Cells Few /LPF Urine Bacteria Few /HPF (0-FEW) Sodium Level 146 mmol/L (136-145) Potassium Level 4.3 mmol/L (3.5-5.1) Chloride Level 101 mmol/L (98-107) Carbon Dioxide Level 17 mmol/L (21-32) Anion Gap 28 (6-14) Blood Urea Nitrogen 205 mg/dL (8-26) Creatinine 17.0 mg/dL (0.7-1.3) Estimated GFR (Cockcroft-Gault) 2.8 Glucose Level 112 mg/dL (70-99) Calcium Level 8.7 mg/dL (8.5-10.1) Phosphorus Level 11.8 mg/dL (2.6-4.7) Albumin 2.7 g/dL (3.4-5.0) Assessment and Plan Assessmemt and Plan Problems Medical Problems: (1) Acute renal failure Status: Acute (2) Influenza Status: Acute (3) Pneumonia Status: Acute (4) Septic shock Status: Acute Comment Review of Relevant I have reviewed the following items renetta (where applicable) has been applied. Labs Laboratory Tests Test 08/01/19 08:30 08/02/19 14:10 08/03/19 04:00 White Blood Count 9.6 x10^3/uL (4.0-11.0) Red Blood Count 4.10 x10^6/uL (4.30-5.70) Hemoglobin 11.7 g/dL (13.0-17.5) Hematocrit 34.8 % (39.0-53.0) Mean Corpuscular Volume 85 fL (79-100) Mean Corpuscular Hemoglobin 29 pg (25-35) Mean Corpuscular Hemoglobin Concent 34 g/dL (31-37) Red Cell Distribution Width 17.3 % (11.5-14.5) Platelet Count 218 x10^3/uL (140-400) Sodium Level 137 mmol/L (136-145) 146 mmol/L (136-145) Potassium Level 4.4 mmol/L (3.5-5.1) 4.3 mmol/L (3.5-5.1) Chloride Level 93 mmol/L (98-107) 101 mmol/L (98-107) Carbon Dioxide Level 16 mmol/L (21-32) 17 mmol/L (21-32) Anion Gap 28 (6-14) 28 (6-14) Blood Urea Nitrogen 205 mg/dL (8-26) 205 mg/dL (8-26) Creatinine 17.5 mg/dL (0.7-1.3) 17.0 mg/dL (0.7-1.3) Estimated GFR (Cockcroft-Gault) 2.7 2.8 BUN/Creatinine Ratio 12 (6-20) Glucose Level 130 mg/dL (70-99) 112 mg/dL (70-99) Calcium Level 8.8 mg/dL (8.5-10.1) 8.7 mg/dL (8.5-10.1) Phosphorus Level 14.5 mg/dL (2.6-4.7) 11.8 mg/dL (2.6-4.7) Magnesium Level 2.8 mg/dL (1.8-2.4) Total Bilirubin 0.2 mg/dL (0.2-1.0) Aspartate Amino Transf (AST/SGOT) 16 U/L (15-37) Alanine Aminotransferase (ALT/SGPT) 16 U/L (16-63) Alkaline Phosphatase 66 U/L (46-116) Troponin I Quantitative 0.051 ng/mL (0.000-0.055) Total Protein 5.8 g/dL (6.4-8.2) Albumin 1.7 g/dL (3.4-5.0) 2.7 g/dL (3.4-5.0) Albumin/Globulin Ratio 0.4 (1.0-1.7) Urine Collection Type Unknown Urine Color Yellow Urine Clarity Clear Urine pH 5.5 Urine Specific [place] 1.020 Urine Protein >=300 mg/dL (NEG-TRACE) Urine Glucose (UA) 100 mg/dL (NEG) Urine Ketones (Stick) Negative mg/dL (NEG) Urine Blood Large (NEG) Urine Nitrite Negative (NEG) Urine Bilirubin Negative (NEG) Urine Urobilinogen Dipstick 0.2 mg/dL (0.2 mg/dL) Urine Leukocyte Esterase Negative (NEG) Urine RBC >40 /HPF (0-2) Urine WBC 1-4 /HPF (0-4) Urine Squamous Epithelial Cells Few /LPF Urine Bacteria Few /HPF (0-FEW) Laboratory Tests Test 08/02/19 14:10 08/03/19 04:00 Urine Collection Type Unknown Urine Color Yellow Urine Clarity Clear Urine pH 5.5 Urine Specific [place] 1.020 Urine Protein >=300 mg/dL (NEG-TRACE) Urine Glucose (UA) 100 mg/dL (NEG) Urine Ketones (Stick) Negative mg/dL (NEG) Urine Blood Large (NEG) Urine Nitrite Negative (NEG) Urine Bilirubin Negative (NEG) Urine Urobilinogen Dipstick 0.2 mg/dL (0.2 mg/dL) Urine Leukocyte Esterase Negative (NEG) Urine RBC >40 /HPF (0-2) Urine WBC 1-4 /HPF (0-4) Urine Squamous Epithelial Cells Few /LPF Urine Bacteria Few /HPF (0-FEW) Sodium Level 146 mmol/L (136-145) Potassium Level 4.3 mmol/L (3.5-5.1) Chloride Level 101 mmol/L (98-107) Carbon Dioxide Level 17 mmol/L (21-32) Anion Gap 28 (6-14) Blood Urea Nitrogen 205 mg/dL (8-26) Creatinine 17.0 mg/dL (0.7-1.3) Estimated GFR (Cockcroft-Gault) 2.8 Glucose Level 112 mg/dL (70-99) Calcium Level 8.7 mg/dL (8.5-10.1) Phosphorus Level 11.8 mg/dL (2.6-4.7) Albumin 2.7 g/dL (3.4-5.0) Microbiology 07/31/19 Blood Culture - Final, Complete Medications Current Medications Ceftriaxone Sodium (Rocephin) 1 gm 1X ONCE IVP Last administered on 07/30/19at 19:35; Start 07/30/19 at 19:30; Stop 07/30/19 at 19:31; Status DC Sodium Chloride 1,000 ml @ 1,000 mls/hr 1X ONCE IV Last administered on 07/30/19at 19:31; Start 07/30/19 at 19:30; Stop 07/30/19 at 20:29; Status DC Ondansetron HCl (Zofran) 4 mg 1X ONCE IVP Last administered on 07/30/19at 19:34; Start 07/30/19 at 19:30; Stop 07/30/19 at 19:31; Status DC Norepinephrine Bitartrate 8 mg/ Dextrose 258 ml @ 15.383 mls/ hr 1X ONCE IV Last administered on 07/30/19at 20:55; Start 07/30/19 at 20:30; Stop 07/31/19 at 13:16; Status DC Sodium Chloride 2,190 ml @ 2,190 mls/hr Q1H IV Last administered on 07/30/19at 21:39; Start 07/30/19 at 21:30; Stop 07/30/19 at 21:40; Status DC Vancomycin HCl (Vanco Per Pharmacy) 1 each PRN DAILY PRN MC SEE COMMENTS Last administered on 07/31/19at 05:38; Start 07/30/19 at 21:30; Stop 07/31/19 at 09:56; Status DC Levofloxacin/ Dextrose 150 ml @ 100 mls/hr 1X ONCE IV Last administered on 07/30/19at 22:02; Start 07/30/19 at 22:00; Stop 07/30/19 at 23:29; Status DC Sodium Chloride 1,000 ml @ 1,000 mls/hr Q1H IV Last administered on 1/31/20at 22:30; Start 07/30/19 at 21:40; Stop 07/30/19 at 23:28; Status DC Vancomycin HCl 2 gm/Sodium Chloride 500 ml @ 250 mls/hr 1X ONCE IV Last administered on 07/30/19at 21:51; Start 07/30/19 at 22:00; Stop 07/30/19 at 23:59; Status DC Sodium Bicarbonate 50 meq/Dextrose 1,050 ml @ 125 mls/hr 1X ONCE IV Last administered on 07/31/19at 00:32; Start 07/30/19 at 22:30; Stop 07/31/19 at 06:53; Status DC Ondansetron HCl (Zofran) 4 mg PRN Q8HRS PRN IV NAUSEA/VOMITING 1ST CHOICE; Start 07/30/19 at 22:30; Stop 07/31/19 at 22:29; Status DC Acetaminophen (Tylenol) 650 mg PRN Q4HRS PRN PO FEVER; Start 07/30/19 at 22:30; Stop 07/31/19 at 22:29; Status DC Vancomycin HCl (Vancomycin Random Level) 1 each 1X ONCE MC ; Start 08/01/19 at 22:00; Stop 08/01/19 at 22:01; Status Cancel Piperacillin Sod/ Tazobactam Sod (Zosyn Per Pharmacy) 1 each PRN DAILY PRN MC SEE COMMENTS; Start 07/31/19 at 10:00 Piperacillin Sod/ Tazobactam Sod 2.25 gm/Sodium Chloride 50 ml @ 100 mls/hr Q8HRS IV Last administered on 08/03/19at 05:52; Start 07/31/19 at 10:00 Ringer's Solution 1,000 ml @ 100 mls/hr Q10H IV Last administered on 08/03/19at 01:52; Start 07/31/19 at 12:30 Sodium Chloride 500 ml @ 0 mls/hr QID PRN IV UO< 30cc/hr over previous 6hrs Last administered on 08/01/19at 10:16; Start 07/31/19 at 12:30 Oseltamivir Phosphate (Tamiflu) 30 mg DAILY PO ; Start 07/31/19 at 15:00; Stop 08/04/19 at 09:01; Status Cancel Oseltamivir Phosphate (Tamiflu) 30 mg 1X ONCE PO Last administered on 07/31/19at 17:29; Start 07/31/19 at 15:00; Stop 07/31/19 at 15:01; Status DC Daptomycin 500 mg/ Sodium Chloride 50 ml @ 100 mls/hr 1X ONCE IV Last administered on 07/31/19at 18:35; Start 07/31/19 at 17:30; Stop 07/31/19 at 17:59; Status DC Sodium Bicarbonate (Sodium Bicarb Adult 8.4% Syr) 50 meq Q2HR IV Last admi nistered on 08/01/19at 13:03; Start 08/01/19 at 10:00; Stop 08/01/19 at 12:01; Status DC Albumin Human 100 ml @ 100 mls/hr TID IV Last administered on 08/02/19at 20:23; Start 08/01/19 at 09:30; Stop 08/02/19 at 21:59; Status DC Daptomycin 450 mg/ Sodium Chloride 50 ml @ 100 mls/hr Q48H IV Last administered on 08/01/19at 13:54; Start 08/01/19 at 13:00 Lisinopril (Prinivil) 10 mg DAILY PO ; Start 08/03/19 at 09:00; Status Cancel Non-Formulary Medication (Rivaroxaban (Xarelto)) 20 mg DAILY PO ; Start 08/02/19 at 17:00; Status UNV Heparin Sodium (Porcine) (Heparin Sodium) 5,000 unit Q12HR SQ Last administered on 08/02/19at 20:27; Start 08/02/19 at 21:00 Active Scripts Active Reported Xarelto (Rivaroxaban) 20 Mg Tablet 20 Mg PO DAILY Lisinopril 20 Mg Tablet 10 Mg PO DAILY Vitals/I & O Vital Sign - Last 24 Hours 08/02/19 08/02/19 08/02/19 08/02/19 11:37 15:59 19:25 19:28 Temp 98.1 97.7 98.5 98.1 97.7 98.5 Pulse 92 87 95 Resp 18 18 16 B/P (MAP) 125/62 (83) 140/65 (90) 148/70 (96) Pulse Ox 95 95 97 O2 Delivery Room Air Room Air Room Air Room Air O2 Flow Rate 2.0 2.0 08/02/19 08/03/1920 23:20 03:00 07:00 Temp 98.2 98.7 98.5 98.2 98.7 98.5 Pulse 93 96 83 Resp 16 16 16 B/P (MAP) 171/79 (109) 164/76 (105) 158/77 (104) Pulse Ox 98 97 95 O2 Delivery Room Air Room Air Room Air Intake and Output 08/02/19 08/02/19 08/03/19 15:00 23:00 07:00 Intake Total 300 ml 500 ml Output Total 150 ml 1200 ml Balance -150 ml 300 ml -700 ml Nutrition Consultation Dietary Evaluation: Recommendations by RD: Dietary education by RD, Increase Calorie Intake, Protein supplementation Comments: nepro bid REC mvi and vit c per wound protocal Expected Outcomes/Goals: to meet >75% est nutr needs Malnutrition Findings: Food and Nutrition Intake (Mod: <75% est energy req 7days Weight Status: Appropriate BELTRAN SHARMA MD Aug 03, 2019 08:06
[2019-08-03] MEDS ORDERED: LISINOPRIL 10 MG TABLET PO SCH (09:00)
--- NOTE | 2019-08-03 09:21 | PDOC ---
SUBJECTIVE ROS Pt denies any complaints, OBJECTIVE Vital Signs Vital Signs Date Time Temp Pulse Resp B/P (MAP) Pulse Ox O2 Delivery O2 Flow Rate FiO2 08/03/19 07:00 98.5 83 16 158/77 (104) 95 Room Air 98.5 08/02/19 15:59 2.0 I & 0 Intake and Output 08/03/19 07:00 Intake Total 800 ml Output Total 1350 ml Balance -550 ml Intake Oral 800 ml Output Urine Total 350 ml Stool Total 1000 ml PHYSICAL EXAM Physical Exam GENERAL: sleeping, easily arousable, NAD HEENT: Pupils equally round. Normal conjunctivae. Oropharynx dry. NECK: Supple. LUNGS: Diminished at bases , nonlabored. HEART: S1, S2 regular. ABDOMEN: Soft, nontender, ostomy +. Midline abdominal wound scabbed EXTREMITIES: No gross edema or cyanosis. SKIN: Warm to touch without signs of rash. NEUROLOGIC: Alert and answering questions appropriately, / Mild tremores- ? Chronic Right-sided chest Port-A-Cath DIAGNOSIS/ASSESSMENT Assessment & Plan Acute kidney injury:Suspect ATN No focal abnormality seen in the kidneys or bladder on US , Normal Cr in 2019 ,Required HD in 2014 x 2 , No labs available from [facility] , Pt asymptomatic , Labs Ordered and reviewed this am- No improvement in renal function- Initiate Dialysis (Pt has agreed today ) Temp HDC today , Dw Dr. Giordano Severe intravascular volume depletion: recd IV fluids , no improvement in renal function based on labs on 08/01 Hypocalcemia: Corrects for severe hypoalbuminemia HyperPhosphatemia- suspect sec to THAD Ordered Uric acid and CK Hypoalbuminemia: Presumably associated with metastatic disease to the liver Micr hematuria (Non [place] sample) -will Check Pr/Cr needs further Eval if new onset , recommend Urology Possible sepsis: (G positive bacteremia is noted )Antibiotics per infectious disease physicians. Hx of infected abdominal hernia mesh associated with Prevotella bivia, history of scrotal abscess with yeast and Bacteroides Colon cancer undergoing chemotherapy at [facility]- Defer to Hem/onc history of urinary tract infections Chronic abdominal wound for which he is followed by Dr. Clarke at [facility] every 3 weeks. Anemia: Hemoglobin dropped from 14.5-11.7 suspect this is due to intravascular volume depletion at presentation and rehydration COMMENT/RELEVANT DATA Meds Current Medications Medications (Trade) Dose Ordered Sig/Joseph Start Time Stop Time Status Last Admin Dose Admin Acetaminophen (Tylenol) 650 mg PRN Q4HRS PRN 07/30/19 22:30 07/31/19 22:29 DC Albumin Human 100 ml @ 100 mls/hr TID 08/01/19 09:30 08/02/19 21:59 DC 08/02/19 20:23 100 MLS/HR Ceftriaxone Sodium (Rocephin) 1 gm 1X ONCE 07/30/19 19:30 07/30/19 19:31 DC 07/30/19 19:35 1 GM Daptomycin 450 mg/ Sodium Chloride 50 ml @ 100 mls/hr Q48H 08/01/19 13:00 08/01/19 13:54 100 MLS/HR Daptomycin 500 mg/ Sodium Chloride 50 ml @ 100 mls/hr 1X ONCE 07/31/19 17:30 07/31/19 17:59 DC 07/31/19 18:35 100 MLS/HR Heparin Sodium (Porcine) (Heparin Sodium) 5,000 unit Q12HR 08/02/19 21:00 08/02/19 20:27 5,000 UNIT Levofloxacin/ Dextrose 150 ml @ 100 mls/hr 1X ONCE 07/30/19 22:00 07/30/19 23:29 DC 07/30/19 22:02 100 MLS/HR Lisinopril (Prinivil) 10 mg DAILY 08/03/19 09:00 Cancel Non-Formulary Medication (Rivaroxaban (Xarelto)) 20 mg DAILY 08/02/19 17:00 UNV Norepinephrine Bitartrate 8 mg/ Dextrose 258 ml @ 15.383 mls/ hr 1X ONCE 07/30/19 20:30 07/31/19 13:16 DC 07/30/19 20:55 1.875 MLS/HR Ondansetron HCl (Zofran) 4 mg PRN Q8HRS PRN 07/30/19 22:30 07/31/19 22:29 DC Oseltamivir Phosphate (Tamiflu) 30 mg 1X ONCE 07/31/19 15:00 07/31/19 15:01 DC 07/31/19 17:29 30 MG Piperacillin Sod/ Tazobactam Sod (Zosyn Per Pharmacy) 1 each PRN DAILY PRN 07/31/19 10:00 Piperacillin Sod/ Tazobactam Sod 2.25 gm/Sodium Chloride 50 ml @ 100 mls/hr Q8HRS 07/31/19 10:00 08/03/19 05:52 100 MLS/HR Ringer's Solution 1,000 ml @ 100 mls/hr Q10H 07/31/19 12:30 08/03/19 01:52 100 MLS/HR Sodium Bicarbonate 50 meq/Dextrose 1,050 ml @ 125 mls/hr 1X ONCE 07/30/19 22:30 07/31/19 06:53 DC 07/31/19 00:32 125 MLS/HR Sodium Bicarbonate (Sodium Bicarb Adult 8.4% Syr) 50 meq Q2HR 08/01/19 10:00 08/01/19 12:01 DC 08/01/19 13:03 50 MEQ Sodium Chloride 500 ml @ 0 mls/hr QID PRN 07/31/19 12:30 08/01/19 10:16 999 MLS/HR Vancomycin HCl (Vanco Per Pharmacy) 1 each PRN DAILY PRN 07/30/19 21:30 07/31/19 09:56 DC 07/31/19 05:38 1 EACH Vancomycin HCl (Vancomycin Random Level) 1 each 1X ONCE 08/01/19 22:00 08/01/19 22:01 Cancel Vancomycin HCl 2 gm/Sodium Chloride 500 ml @ 250 mls/hr 1X ONCE 07/30/19 22:00 07/30/19 23:59 DC 07/30/19 21:51 250 MLS/HR Lab Laboratory Tests Test 08/02/19 14:10 08/03/19 04:00 Urine Collection Type Unknown Urine Color Yellow Urine Clarity Clear Urine pH 5.5 Urine Specific [place] 1.020 Urine Protein >=300 mg/dL (NEG-TRACE) Urine Glucose (UA) 100 mg/dL (NEG) Urine Ketones (Stick) Negative mg/dL (NEG) Urine Blood Large (NEG) Urine Nitrite Negative (NEG) Urine Bilirubin Negative (NEG) Urine Urobilinogen Dipstick 0.2 mg/dL (0.2 mg/dL) Urine Leukocyte Esterase Negative (NEG) Urine RBC >40 /HPF (0-2) Urine WBC 1-4 /HPF (0-4) Urine Squamous Epithelial Cells Few /LPF Urine Bacteria Few /HPF (0-FEW) Sodium Level 146 mmol/L (136-145) Potassium Level 4.3 mmol/L (3.5-5.1) Chloride Level 101 mmol/L (98-107) Carbon Dioxide Level 17 mmol/L (21-32) Anion Gap 28 (6-14) Blood Urea Nitrogen 205 mg/dL (8-26) Creatinine 17.0 mg/dL (0.7-1.3) Estimated GFR (Cockcroft-Gault) 2.8 Glucose Level 112 mg/dL (70-99) Calcium Level 8.7 mg/dL (8.5-10.1) Phosphorus Level 11.8 mg/dL (2.6-4.7) Albumin 2.7 g/dL (3.4-5.0) Results All relevant outside records, renal labs, imaging studies, telemetry/EKG's were reviewed. JE RIBEIRO MD Aug 03, 2019 09:21
--- NOTE | 2019-08-03 09:24 | PDOC ---
Infectious Disease Note Subjective: Subjective Pt says feels better no complaints anxious about getting hdc Increase urination Denies pain/F/C/SOA /cough/Chestpain/joint pain Vital Signs: Vital Signs Vital Signs Date Time Temp Pulse Resp B/P (MAP) Pulse Ox O2 Delivery O2 Flow Rate FiO2 08/03/19 07:00 98.5 83 16 158/77 (104) 95 Room Air 98.5 08/02/19 15:59 2.0 Physical Exam: PHYSICAL EXAM GENERAL: Propped up in bed, alert eating HEENT: Pupils equally round. Normal conjunctivae. Oropharynx pink and dry. Poor dentition. NECK: Supple. LUNGS: Diminished aeration, nonlabored. HEART: S1, S2 regular. ABDOMEN: Soft, nontender, bowel sounds with ostomy. midline chronic abdominal wound with some purulence EXTREMITIES: No gross edema or cyanosis. SKIN: Warm to touch without signs of rash. NEUROLOGIC: Alert and answering questions appropriately. Right-sided chest Port-A-Cath without signs of any complications. Medications: Inpatient Meds: Current Medications Medications (Trade) Dose Ordered Sig/Joseph Start Time Stop Time Status Last Admin Dose Admin Acetaminophen (Tylenol) 650 mg PRN Q4HRS PRN 07/30/19 22:30 07/31/19 22:29 DC Albumin Human 100 ml @ 100 mls/hr TID 08/01/19 09:30 08/02/19 21:59 DC 08/02/19 20:23 100 MLS/HR Ceftriaxone Sodium (Rocephin) 1 gm 1X ONCE 07/30/19 19:30 07/30/19 19:31 DC 07/30/19 19:35 1 GM Daptomycin 450 mg/ Sodium Chloride 50 ml @ 100 mls/hr Q48H 08/01/19 13:00 08/01/19 13:54 100 MLS/HR Daptomycin 500 mg/ Sodium Chloride 50 ml @ 100 mls/hr 1X ONCE 07/31/19 17:30 07/31/19 17:59 DC 07/31/19 18:35 100 MLS/HR Heparin Sodium (Porcine) (Heparin Sodium) 5,000 unit Q12HR 08/02/19 21:00 08/02/19 20:27 5,000 UNIT Levofloxacin/ Dextrose 150 ml @ 100 mls/hr 1X ONCE 07/30/19 22:00 07/30/19 23:29 DC 07/30/19 22:02 100 MLS/HR Lisinopril (Prinivil) 10 mg DAILY 08/03/19 09:00 Cancel Non-Formulary Medication (Rivaroxaban (Xarelto)) 20 mg DAILY 08/02/19 17:00 UNV Norepinephrine Bitartrate 8 mg/ Dextrose 258 ml @ 15.383 mls/ hr 1X ONCE 07/30/19 20:30 07/31/19 13:16 DC 07/30/19 20:55 1.875 MLS/HR Ondansetron HCl (Zofran) 4 mg PRN Q8HRS PRN 07/30/19 22:30 07/31/19 22:29 DC Oseltamivir Phosphate (Tamiflu) 30 mg 1X ONCE 07/31/19 15:00 07/31/19 15:01 DC 07/31/19 17:29 30 MG Piperacillin Sod/ Tazobactam Sod (Zosyn Per Pharmacy) 1 each PRN DAILY PRN 07/31/19 10:00 Piperacillin Sod/ Tazobactam Sod 2.25 gm/Sodium Chloride 50 ml @ 100 mls/hr Q8HRS 07/31/19 10:00 08/03/19 05:52 100 MLS/HR Ringer's Solution 1,000 ml @ 100 mls/hr Q10H 07/31/19 12:30 08/03/19 01:52 100 MLS/HR Sodium Bicarbonate 50 meq/Dextrose 1,050 ml @ 125 mls/hr 1X ONCE 07/30/19 22:30 07/31/19 06:53 DC 07/31/19 00:32 125 MLS/HR Sodium Bicarbonate (Sodium Bicarb Adult 8.4% Syr) 50 meq Q2HR 08/01/19 10:00 08/01/19 12:01 DC 08/01/19 13:03 50 MEQ Sodium Chloride 500 ml @ 0 mls/hr QID PRN 07/31/19 12:30 08/01/19 10:16 999 MLS/HR Vancomycin HCl (Vanco Per Pharmacy) 1 each PRN DAILY PRN 07/30/19 21:30 07/31/19 09:56 DC 07/31/19 05:38 1 EACH Vancomycin HCl (Vancomycin Random Level) 1 each 1X ONCE 08/01/19 22:00 08/01/19 22:01 Cancel Vancomycin HCl 2 gm/Sodium Chloride 500 ml @ 250 mls/hr 1X ONCE 07/30/19 22:00 07/30/19 23:59 DC 07/30/19 21:51 250 MLS/HR Labs: Lab Laboratory Tests Test 08/02/19 14:10 08/03/19 04:00 Urine Collection Type Unknown Urine Color Yellow Urine Clarity Clear Urine pH 5.5 Urine Specific [place] 1.020 Urine Protein >=300 mg/dL (NEG-TRACE) Urine Glucose (UA) 100 mg/dL (NEG) Urine Ketones (Stick) Negative mg/dL (NEG) Urine Blood Large (NEG) Urine Nitrite Negative (NEG) Urine Bilirubin Negative (NEG) Urine Urobilinogen Dipstick 0.2 mg/dL (0.2 mg/dL) Urine Leukocyte Esterase Negative (NEG) Urine RBC >40 /HPF (0-2) Urine WBC 1-4 /HPF (0-4) Urine Squamous Epithelial Cells Few /LPF Urine Bacteria Few /HPF (0-FEW) Sodium Level 146 mmol/L (136-145) Potassium Level 4.3 mmol/L (3.5-5.1) Chloride Level 101 mmol/L (98-107) Carbon Dioxide Level 17 mmol/L (21-32) Anion Gap 28 (6-14) Blood Urea Nitrogen 205 mg/dL (8-26) Creatinine 17.0 mg/dL (0.7-1.3) Estimated GFR (Cockcroft-Gault) 2.8 Glucose Level 112 mg/dL (70-99) Calcium Level 8.7 mg/dL (8.5-10.1) Phosphorus Level 11.8 mg/dL (2.6-4.7) Albumin 2.7 g/dL (3.4-5.0) Objective: Assessment: Septic shock, POA off pressors from Staph aureus sepsis Staph aureus bacteremia 07/30 and 07/31 source unclear ,infected chronic abdo wound vs ba cath ( 2014) Influenza B Hypothermia - improved THAD Colon cancer undergoing chemo at [facility]. Port-a-cath in place. 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 Clarke at [facility] Plan: Plan of Care Tamiflu, renal dosing, times one dose 07/31 Continue dapto (added 07/31) ;Last dose vancomycin 07/31 DC Zosyn Ba cath will need removal,pt want to hold off for now Will need removal of infected mesh will consult gen surgery f/u Portacath bc from 08/02 risk of recurrence discussed Monitor labs Maintain aspiration precautions Local wound care per wound team Droplet precautions d/w lab to check for dapto suscept for staph aureus D/w nursing Critically ill ARMINDA HENNESSY MD Aug 03, 2019 09:24
[2019-08-03 10:33] VITALS: BP 162/74
[2019-08-03] MEDS ORDERED: LIDOCAINE WITH 8.4% SOD BICARB 3 ML DISP.SYRIN. ONE (10:59)
[2019-08-03 11:09] LABS: URIC ACID 15.1 mg/dL (3.5-7.2)
[2019-08-03] MEDS ORDERED: IV NORMAL SALINE 1000ML BAG 1,000 ML IV PRN ×2 (11:29)
[2019-08-03] MEDS ORDERED: ALBUMIN HUMAN 25% 200 ML IV PRN (11:30)
[2019-08-03] MEDS ORDERED: DIALYSIS PATIENT. MC PRN ×2 (11:30)
[2019-08-03] MEDS ORDERED: LIDOCAINE WITH 8.4% SOD BICARB 3 ML DISP.SYRIN. INJ ONE (12:00)
[2019-08-03] MEDS: DAPTOmycin (GENERIC) IVPB 450 MG in IV NORMAL SALINE 50ML 50 ML IV SCH (12:43)
[2019-08-03] MEDS: HEPARIN for SUB-Q USE 5,000 UNIT/ML VIAL. SQ SCH ×2 (12:46→20:56)
--- NOTE | 2019-08-03 16:42 | RAD ---
Procedure: Ultrasound-guided placement of left internal jugular temporary dialysis catheter 08/03/2019 2:37 PM Clinical Indication: temporary HD cath. Has Right port in place Discussion: The risks and benefits of the procedure were discussed the patient and/or their teleservices representative. Informed consent was obtained. A timeout procedure was performed. All elements of maximal sterile barrier technique including the use of a cap, mask, sterile gown, sterile gloves, large sterile sheet, appropriate hand hygiene, and 2% chlorhexidine for cutaneous antisepsis (or acceptable alternative antiseptic per current guidelines) were followed for this procedure. The patient was prepped and draped in the usual sterile fashion. Ultrasound interrogation of the left neck revealed patency and compressibility of the left internal jugular vein. A 21-gauge micropuncture was then used to gain access to this vein under ultrasound guidance. A hard copy ultrasound image was recorded. A guidewire was advanced centrally. 5 Slovenian sheath was placed. Over a wire following dilatation, a dual-lumen temporary dialysis catheter catheter was advanced centrally. Catheter was found to flush and aspirate normally. Follow-up chest radiograph demonstrates tip at the cavoatrial junction. Catheter secured in place and a sterile dressing was applied. No immediate complications were identified. Impression: Successful ultrasound-guided placement of left internal jugular temporary dialysis catheter
[2019-08-03 19:57] VITALS: BP 149/76
--- NOTE | 2019-08-03 21:32 | CONS ---
DATE OF CONSULTATION: 08/03/2019 MEDICAL ONCOLOGY CONSULTATION REQUESTING PHYSICIAN: Dr. Ray Giordano. REASON FOR CONSULTATION: Colon cancer, on chemotherapy, now admitted with septic shock and acute renal failure. HISTORY OF PRESENT ILLNESS: The patient is a 64-year-old gentleman who has a stage 4 colon cancer diagnosed in 2014 with evidence of omental metastasis, on chemotherapy under the direction of Dr. Thang Haji. He is currently on chemotherapy with FOLFIRI. He has a history of necrotizing fasciitis in 08/2018 and chronic abdominal wound and he goes to [facility] for wound care management. He was admitted to [facility] on 07/30/2019 with progressive weakness, intermittent nausea, vomiting and increased ostomy output. In the ER, he was noted to have hypothermia, hypotension, and bandemia and lactic acid of 2.6. Chest x-ray revealed patchy bibasilar opacities. He was positive for influenza B. He also had acute renal failure with a creatinine of 15.1 and a BUN of 216. He was admitted to the ICU, treated with Levophed drip and aggressive antibiotics. After his condition was stabilized and improved, he was transferred to the sixth floor. I was asked to see the patient for colon cancer, on chemotherapy. He is undergoing hemodialysis. Nephrology is on board, considering hemodialysis. PAST MEDICAL HISTORY: Infected abdominal hernia mesh, history of scrotal abscess with the yeast and Bacteroides, colon cancer as described above, hypertension, degenerative joint disease, urinary tract infections. SOCIAL HISTORY: No smoking or alcohol abuse. 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 FAMILY HISTORY: No known history of colon cancer and he is adopted. REVIEW OF SYSTEMS: A 12-point review of system was performed. Pertinent positives are mentioned in the history of present illness. Rest of the system review is negative. PHYSICAL EXAMINATION: GENERAL APPEARANCE: The patient is a 64-year-old gentleman who is in no acute cardiorespiratory distress. VITAL SIGNS: Blood pressure 162/74, temperature 97.9. HEAD: Atraumatic, normocephalic. EYES: No icterus. NECK: Supple. CHEST: Bilaterally symmetrical. HEART: S1, S2 normal. ABDOMEN: Soft. Ostomy is in place. Midline abdominal wound dressing in place. CENTRAL NERVOUS SYSTEM: No focal deficits. LYMPHATICS: No lymphadenopathy. SKIN: No rashes. PSYCHOLOGIC: Mood and affect are appropriate. MUSCULOSKELETAL: No joint effusions. PSYCHOLOGIC: Mood and affect are appropriate. LABORATORY DATA: WBC 9.6, hemoglobin 11.7, platelet count 218. Creatinine 17.0. IMPRESSION AND PLAN: 1. Stage 4 colon cancer with predominantly omental metastasis and positive KRAS mutation diagnosed in 12/2014. He is currently on chemotherapy with FOLFIRI under the direction of Dr. Thang Haji. He is now admitted with septic shock from Staph aureus sepsis. ID is on board managing antibiotics. I have advised him to follow up with Dr. Thang Haji upon discharge. 2. Influenza B. Continue management per ID. 3. Septic shock, improving. 4. Acute renal failure due to septic shock. Appreciate Nephrology consultation. LAWRENCE CARROLL MD DR: NGUYEN/you JOB#: [id number] / [id number]
[2019-08-03 23:53] VITALS: BP 151/79
[2019-08-04 03:54] VITALS: BP 149/75
[2019-08-04] MEDS: IV RINGERS,LACTATED 1000ML 1,000 ML IV SCH ×2 (05:45→16:30)
[2019-08-04 05:56] LABS: CALCIUM 8.7 mg/dL (8.5-10.1); CREATININE 10.6 mg/dL (0.7-1.3); GFR 4.9; POTASSIUM 3.9 mmol/L (3.5-5.1)
[2019-08-04 06:00] LABS: ALBUMIN 2.6 g/dL (3.4-5.0); PHOSPHORUS 8.4 mg/dL (2.6-4.7)
[2019-08-04 07:59] VITALS: BP 151/64
[2019-08-04] MEDS ORDERED: IV NORMAL SALINE 1000ML BAG 1,000 ML IV PRN ×2 (09:46)
[2019-08-04] MEDS ORDERED: 0.9 % SODIUM CHLORIDE 10 ML DISP.SYRIN. IV PRN ×2 (10:00)
[2019-08-04] MEDS ORDERED: DIALYSIS PATIENT. MC PRN ×2 (10:00)
[2019-08-04] MEDS ORDERED: ALBUMIN HUMAN 25% 200 ML IV PRN (10:00)
--- NOTE | 2019-08-04 10:16 | PDOC ---
PROGRESS NOTES Chief Complaint Chief Complaint Septic shock, present on admission. Hypothermia. Influenza B. Acute kidney injury. Colon cancer, undergoing chemotherapy. 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 Critically ill. History of Present Illness History of Present Illness Mr Nath is a 64 yo M PMHx infected abdominal hernia mesh associated with Prevotella bivia, history of scrotal abscess with yeast and Bacteroides, colon cancer undergoing chemotherapy at [facility], hypertension, degenerative joint disease, history of urinary tract infections p/w weakness, nausea, vomiting. He says his last treatment was a couple of weeks ago and since then has been feeling progressively weak with intermittent nausea and vomiting and increased ostomy output more than usual. He has developed a cough with some phlegm production as well. On arrival to the ER, he was hypothermic, hypotensive with bandemia and lactic acid of 2.6. Chest x-ray showed patchy bibasilar opacities and possible small left pleural effusion. He tested positive for influenza B. He was also in acute renal failure with a creatinine of 15.1 and BUN 216. He is admitted to the intensive care unit on Levophed drip. He was dosed with vancomycin, ceftriaxone, and levofloxacin. On 5L NCO2. He has a chronic abdominal wound for which he is followed by Dr. Clarke at [facility] every 3 weeks. 2: Patient seen and examined in the ICU. He had one of 2 bottles growing gram- positive cocci (infectious disease is following) 2: No Overnight events. Seen bedside. He states he is feeling better. Profou ndly weak, cannot even reposition himself in bed. No SOB or CP. Discussed need for mesh removal and port removal given bacteremia - would like to f/u at [facility] with DR Clarke instead. Risk of failure and recurrence with metastatic seeding discussed. 08/03: He is feeling about the same. Repeat blood cultures negative, renal function unchanged. He consents to temporary HD catheter placement for now. Still very weak, deconditioned. He is still weak, going for dialysis and port removal today. Still short of breath Vitals Vitals Vital Signs Date Time Temp Pulse Resp B/P (MAP) Pulse Ox O2 Delivery O2 Flow Rate FiO2 08/04/19 07:59 98.7 85 20 151/64 (93) 93 Room Air 98.7 08/03/19 08:00 2.0 Physical Exam Physical Exam GENERAL: Propped up in bed, alert eating HEENT: Pupils equally round. Normal conjunctivae. Oropharynx pink and dry. Poor dentition. NECK: Supple. LUNGS: Diminished aeration, nonlabored. HEART: S1, S2 regular. ABDOMEN: Soft, nontender, bowel sounds with ostomy. midline chronic abdominal wound with some purulence EXTREMITIES: No gross edema or cyanosis. SKIN: Warm to touch without signs of rash. NEUROLOGIC: Alert and answering questions appropriately. Right-sided chest Port-A-Cath without signs of any complications. Lungs: Clear Labs LABS Laboratory Tests Test 08/04/19 03:30 Sodium Level 144 mmol/L (136-145) Potassium Level 3.9 mmol/L (3.5-5.1) Chloride Level 97 mmol/L (98-107) Carbon Dioxide Level 24 mmol/L (21-32) Anion Gap 23 (6-14) Blood Urea Nitrogen 104 mg/dL (8-26) Creatinine 10.6 mg/dL (0.7-1.3) Estimated GFR (Cockcroft-Gault) 4.9 Glucose Level 91 mg/dL (70-99) Calcium Level 8.7 mg/dL (8.5-10.1) Phosphorus Level 8.4 mg/dL (2.6-4.7) Albumin 2.6 g/dL (3.4-5.0) Assessment and Plan Assessmemt and Plan Problems Medical Problems: (1) Acute renal failure Status: Acute (2) Influenza Status: Acute (3) Pneumonia Status: Acute (4) Septic shock Status: Acute Comment Review of Relevant I have reviewed the following items renetta (where applicable) has been applied. Labs Laboratory Tests Test 08/02/19 14:10 08/03/19 04:00 08/04/19 03:30 Urine Collection Type Unknown Urine Color Yellow Urine Clarity Clear Urine pH 5.5 Urine Specific [place] 1.020 Urine Protein >=300 mg/dL (NEG-TRACE) Urine Glucose (UA) 100 mg/dL (NEG) Urine Ketones (Stick) Negative mg/dL (NEG) Urine Blood Large (NEG) Urine Nitrite Negative (NEG) Urine Bilirubin Negative (NEG) Urine Urobilinogen Dipstick 0.2 mg/dL (0.2 mg/dL) Urine Leukocyte Esterase Negative (NEG) Urine RBC >40 /HPF (0-2) Urine WBC 1-4 /HPF (0-4) Urine Squamous Epithelial Cells Few /LPF Urine Bacteria Few /HPF (0-FEW) Sodium Level 146 mmol/L (136-145) 144 mmol/L (136-145) Potassium Level 4.3 mmol/L (3.5-5.1) 3.9 mmol/L (3.5-5.1) Chloride Level 101 mmol/L (98-107) 97 mmol/L (98-107) Carbon Dioxide Level 17 mmol/L (21-32) 24 mmol/L (21-32) Anion Gap 28 (6-14) 23 (6-14) Blood Urea Nitrogen 205 mg/dL (8-26) 104 mg/dL (8-26) Creatinine 17.0 mg/dL (0.7-1.3) 10.6 mg/dL (0.7-1.3) Estimated GFR (Cockcroft-Gault) 2.8 4.9 Glucose Level 112 mg/dL (70-99) 91 mg/dL (70-99) Uric Acid 15.1 mg/dL (3.5-7.2) Calcium Level 8.7 mg/dL (8.5-10.1) 8.7 mg/dL (8.5-10.1) Phosphorus Level 11.8 mg/dL (2.6-4.7) 8.4 mg/dL (2.6-4.7) Creatine Kinase 131 U/L (39-308) Albumin 2.7 g/dL (3.4-5.0) 2.6 g/dL (3.4-5.0) Hepatitis B Surface Antigen Nonreactive (Nonreactive) Laboratory Tests Test 08/04/19 03:30 Sodium Level 144 mmol/L (136-145) Potassium Level 3.9 mmol/L (3.5-5.1) Chloride Level 97 mmol/L (98-107) Carbon Dioxide Level 24 mmol/L (21-32) Anion Gap 23 (6-14) Blood Urea Nitrogen 104 mg/dL (8-26) Creatinine 10.6 mg/dL (0.7-1.3) Estimated GFR (Cockcroft-Gault) 4.9 Glucose Level 91 mg/dL (70-99) Calcium Level 8.7 mg/dL (8.5-10.1) Phosphorus Level 8.4 mg/dL (2.6-4.7) Albumin 2.6 g/dL (3.4-5.0) Microbiology 08/02/19 Blood Culture - Preliminary, Resulted NO GROWTH AFTER 1 DAY Medications Current Medications Ceftriaxone Sodium (Rocephin) 1 gm 1X ONCE IVP Last administered on 07/30/19at 19:35; Start 07/30/19 at 19:30; Stop 07/30/19 at 19:31; Status DC Sodium Chloride 1,000 ml @ 1,000 mls/hr 1X ONCE IV Last administered on 07/30/19at 19:31; Start 07/30/19 at 19:30; Stop 07/30/19 at 20:29; Status DC Ondansetron HCl (Zofran) 4 mg 1X ONCE IVP Last administered on 07/30/19at 19:34; Start 07/30/19 at 19:30; Stop 07/30/19 at 19:31; Status DC Norepinephrine Bitartrate 8 mg/ Dextrose 258 ml @ 15.383 mls/ hr 1X ONCE IV Last administered on 07/30/19at 20:55; Start 07/30/19 at 20:30; Stop 07/31/19 at 13:16; Status DC Sodium Chloride 2,190 ml @ 2,190 mls/hr Q1H IV Last administered on 07/30/19at 21:39; Start 07/30/19 at 21:30; Stop 07/30/19 at 21:40; Status DC Vancomycin HCl (Vanco Per Pharmacy) 1 each PRN DAILY PRN MC SEE COMMENTS Last a dministered on 07/31/19at 05:38; Start 07/30/19 at 21:30; Stop 07/31/19 at 09:56; Status DC Levofloxacin/ Dextrose 150 ml @ 100 mls/hr 1X ONCE IV Last administered on 07/30/19at 22:02; Start 07/30/19 at 22:00; Stop 07/30/19 at 23:29; Status DC Sodium Chloride 1,000 ml @ 1,000 mls/hr Q1H IV Last administered on 07/30/19at 22:30; Start 07/30/19 at 21:40; Stop 07/30/19 at 23:28; Status DC Vancomycin HCl 2 gm/Sodium Chloride 500 ml @ 250 mls/hr 1X ONCE IV Last administered on 07/30/19at 21:51; Start 07/30/19 at 22:00; Stop 07/30/19 at 23:59; Status DC Sodium Bicarbonate 50 meq/Dextrose 1,050 ml @ 125 mls/hr 1X ONCE IV Last admi nistered on 07/31/19at 00:32; Start 07/30/19 at 22:30; Stop 07/31/19 at 06:53; Status DC Ondansetron HCl (Zofran) 4 mg PRN Q8HRS PRN IV NAUSEA/VOMITING 1ST CHOICE; Start 07/30/19 at 22:30; Stop 07/31/19 at 22:29; Status DC Acetaminophen (Tylenol) 650 mg PRN Q4HRS PRN PO FEVER; Start 07/30/19 at 22:30; Stop 07/31/19 at 22:29; Status DC Vancomycin HCl (Vancomycin Random Level) 1 each 1X ONCE MC ; Start 08/01/19 at 22:00; Stop 08/01/19 at 22:01; Status Cancel Piperacillin Sod/ Tazobactam Sod (Zosyn Per Pharmacy) 1 each PRN DAILY PRN MC SEE COMMENTS; Start 07/31/19 at 10:00; Stop 08/03/19 at 15:03; Status DC Piperacillin Sod/ Tazobactam Sod 2.25 gm/Sodium Chloride 50 ml @ 100 mls/hr Q8HRS IV Last administered on 08/03/19at 05:52; Start 07/31/19 at 10:00; Stop 08/03/19 at 09:25; Status DC Ringer's Solution 1,000 ml @ 100 mls/hr Q10H IV Last administered on 08/04/19at 05:45; Start 07/31/19 at 12:30 Sodium Chloride 500 ml @ 0 mls/hr QID PRN IV UO< 30cc/hr over previous 6hrs Last administered on 08/01/19at 10:16; Start 07/31/19 at 12:30 Oseltamivir Phosphate (Tamiflu) 30 mg DAILY PO ; Start 07/31/19 at 15:00; Stop 08/04/19 at 09:01; Status Cancel Oseltamivir Phosphate (Tamiflu) 30 mg 1X ONCE PO Last administered on 07/31/19at 17:29; Start 07/31/19 at 15:00; Stop 07/31/19 at 15:01; Status DC Daptomycin 500 mg/ Sodium Chloride 50 ml @ 100 mls/hr 1X ONCE IV Last administered on 07/31/19at 18:35; Start 07/31/19 at 17:30; Stop 07/31/19 at 17:59; Status DC Sodium Bicarbonate (Sodium Bicarb Adult 8.4% Syr) 50 meq Q2HR IV Last admi nistered on 08/01/19at 13:03; Start 08/01/19 at 10:00; Stop 08/01/19 at 12:01; Status DC Albumin Human 100 ml @ 100 mls/hr TID IV Last administered on 08/02/19at 20:23; Start 08/01/19 at 09:30; Stop 08/02/19 at 21:59; Status DC Daptomycin 450 mg/ Sodium Chloride 50 ml @ 100 mls/hr Q48H IV Last administered on 08/03/19at 12:43; Start 08/01/19 at 13:00 Lisinopril (Prinivil) 10 mg DAILY PO ; Start 08/03/19 at 09:00; Status Cancel Non-Formulary Medication (Rivaroxaban (Xarelto)) 20 mg DAILY PO ; Start 08/02/19 at 17:00; Status UNV Heparin Sodium (Porcine) (Heparin Sodium) 5,000 unit Q12HR SQ Last administered on 08/03/19at 20:56; Start 08/02/19 at 21:00 Lidocaine HCl (Buffered Lidocaine 1%) 3 ml STK-MED ONCE .ROUTE ; Start 08/03/19 at 10:59; Stop 08/03/19 at 10:59; Status DC Sodium Chloride 1,000 ml @ 1,000 mls/hr Q1H PRN IV hypotension; Start 08/03/19 at 11:29; Stop 08/03/19 at 17:28; Status UNV Albumin Human 200 ml @ 200 mls/hr 1X PRN PRN IV Hypotension; Start 08/03/19 at 11:30; Stop 08/03/19 at 17:29; Status DC Sodium Chloride 1,000 ml @ 400 mls/hr Q2H30M PRN IV PATENCY; Start 08/03/19 at 11:29; Stop 08/03/19 at 23:28; Status DC Info (PHARMACY MONITORING -- do not chart) 1 each PRN DAILY PRN MC SEE COMMENTS; Start 08/03/19 at 11:30 Info (PHARMACY MONITORING -- do not chart) 1 each PRN DAILY PRN MC SEE COMMENTS; Start 08/03/19 at 11:30; Stop 08/03/19 at 11:39; Status DC Lidocaine HCl (Buffered Lidocaine 1%) 3 ml 1X ONCE INJ Last administered on 08/03/19at 12:09; Start 08/03/19 at 12:00; Stop 08/03/19 at 12:01; Status DC Sodium Chloride 1,000 ml @ 1,000 mls/hr Q1H PRN IV hypotension; Start 08/04/19 at 09:46; Stop 08/04/19 at 15:45 Albumin Human 200 ml @ 200 mls/hr 1X PRN PRN IV Hypotension; Start 08/04/19 at 10:00; Stop 08/04/19 at 15:59 Sodium Chloride (Normal Saline Flush) 10 ml 1X PRN PRN IV AP catheter pack; Start 08/04/19 at 10:00; Stop 08/05/19 at 09:59 Sodium Chloride (Normal Saline Flush) 10 ml 1X PRN PRN IV MARKETING MANAGER catheter pack; Start 08/04/19 at 10:00; Stop 08/05/19 at 09:59 Sodium Chloride 1,000 ml @ 400 mls/hr Q2H30M PRN IV PATENCY; Start 08/04/19 at 09:46; Stop 08/04/19 at 21:45 Info (PHARMACY MONITORING -- do not chart) 1 each PRN DAILY PRN MC SEE COMMENTS; Start 08/04/19 at 10:00; Status UNV Info (PHARMACY MONITORING -- do not chart) 1 each PRN DAILY PRN MC SEE COMM ENTS; Start 08/04/19 at 10:00 Active Scripts Active Reported Xarelto (Rivaroxaban) 20 Mg Tablet 20 Mg PO DAILY Lisinopril 20 Mg Tablet 10 Mg PO DAILY Vitals/I & O Vital Sign - Last 24 Hours 08/03/19 08/03/19 08/03/19 08/03/19 10:33 19:57 20:00 23:53 Temp 97.9 97.6 98.6 97.9 97.6 98.6 Pulse 92 93 99 Resp 16 16 18 B/P (MAP) 162/74 (103) 149/76 (100) 151/79 (103) Pulse Ox 94 94 96 O2 Delivery Room Air Room Air Room Air Room Air 08/04/19 08/04/19 03:54 07:59 Temp 99.0 98.7 99.0 98.7 Pulse 90 85 Resp 18 20 B/P (MAP) 149/75 (99) 151/64 (93) Pulse Ox 96 93 O2 Delivery Room Air Room Air Intake and Output 08/03/19 08/03/19 08/04/19 14:59 22:59 06:59 Intake Total 0 ml 240 ml Output Total 750 ml Balance 0 ml -510 ml Nutrition Consultation Dietary Evaluation: Recommendations by RD: Dietary education by RD, Increase Calorie Intake, Protein supplementation Comments: nepro bid REC mvi and vit c per wound protocal Expected Outcomes/Goals: to meet >75% est nutr needs Malnutrition Findings: Food and Nutrition Intake (Mod: <75% est energy req 7days Weight Status: Appropriate BELTRAN SHARMA MD Aug 04, 2019 10:16
--- NOTE | 2019-08-04 10:49 | PDOC ---
SUBJECTIVE ROS Pt denies any complaints, seen on HD OBJECTIVE Vital Signs Vital Signs Date Time Temp Pulse Resp B/P (MAP) Pulse Ox O2 Delivery O2 Flow Rate FiO2 08/04/19 07:59 98.7 85 20 151/64 (93) 93 Room Air 98.7 08/03/19 08:00 2.0 I & 0 Intake and Output 08/04/19 06:59 Intake Total 240 ml Output Total 750 ml Balance -510 ml Intake Oral 240 ml Output Urine Total 450 ml Stool Total 300 ml # Voids 1 PHYSICAL EXAM Physical Exam GENERAL: NAD HEENT: Pupils equally round. Normal conjunctivae. Oropharynx dry. NECK: Supple. LUNGS: Diminished at bases , nonlabored. HEART: S1, S2 regular. ABDOMEN: Soft, nontender, ostomy +. Midline abdominal wound scabbed EXTREMITIES: No gross edema or cyanosis. SKIN: Warm to touch without signs of rash. NEUROLOGIC: Alert and answering questions appropriately, / Mild tremores- ? Chronic Right-sided chest Port-A-Cath DIAGNOSIS/ASSESSMENT Assessment & Plan Acute kidney injury:Suspect ATN No focal abnormality seen in the kidneys or bladder on US , Normal Cr in 2018 ,Required HD in 2014 x 2 , Initiate Dialysis 08/03, 2 nd treatment today , seen on HD, tolerating well continue as ordered, Arthur Madrigal Access- Temp HDC Records reviewed from - there are no labs available , No Dx of THAD or CKD mentioned in the notes from [facility] I/O, monitor for renal recovery HyperUricemia- I ordered Uric acid 08/03- Defer to Oncology Initiated on HD Severe intravascular volume depletion: recd IV fluids , no improvement in renal function based on labs on 08/01 Hypocalcemia: Corrects for severe hypoalbuminemia HyperPhosphatemia- suspect sec to THAD , improving with HD Ordered Uric acid and CK Hypoalbuminemia: Presumably associated with metastatic disease to the liver Micr hematuria (Non Saravia sample) -will Check Pr/Cr needs further Eval if new onset , recommend Urology Possible sepsis: (G positive bacteremia is noted )Antibiotics per infectious disease physicians. Hx of infected abdominal hernia mesh associated with Prevotella bivia, history o f scrotal abscess with yeast and Bacteroides Colon cancer undergoing chemotherapy at [facility]- Defer to Hem/onc history of urinary tract infections Chronic abdominal wound for which he is followed by Dr. Clarke at [facility] every 3 weeks. Anemia: Hemoglobin dropped from 14.5-11.7 suspect this is due to intravascular volume depletion at presentation and rehydration COMMENT/RELEVANT DATA Meds Current Medications Medications (Trade) Dose Ordered Sig/Joseph Start Time Stop Time Status Last Admin Dose Admin Acetaminophen (Tylenol) 650 mg PRN Q4HRS PRN 07/30/19 22:30 07/31/19 22:29 DC Albumin Human 200 ml @ 200 mls/hr 1X PRN PRN 08/04/19 10:00 08/04/19 15:59 Ceftriaxone Sodium (Rocephin) 1 gm 1X ONCE 07/30/19 19:30 07/30/19 19:31 DC 07/30/19 19:35 1 GM Daptomycin 450 mg/ Sodium Chloride 50 ml @ 100 mls/hr Q48H 08/01/19 13:00 08/03/19 12:43 100 MLS/HR Daptomycin 500 mg/ Sodium Chloride 50 ml @ 100 mls/hr 1X ONCE 07/31/19 17:30 07/31/19 17:59 DC 07/31/19 18:35 100 MLS/HR Heparin Sodium (Porcine) (Heparin Sodium) 5,000 unit Q12HR 08/02/19 21:00 08/03/19 20:56 5,000 UNIT Info (PHARMACY MONITORING -- do not chart) 1 each PRN DAILY PRN 08/04/19 10:00 Levofloxacin/ Dextrose 150 ml @ 100 mls/hr 1X ONCE 07/30/19 22:00 07/30/19 23:29 DC 07/30/19 22:02 100 MLS/HR Lidocaine HCl (Buffered Lidocaine 1%) 3 ml 1X ONCE 08/03/19 12:00 08/03/19 12:01 DC 08/03/19 12:09 5 ML Lisinopril (Prinivil) 10 mg DAILY 08/03/19 09:00 Cancel Non-Formulary Medication (Rivaroxaban (Xarelto)) 20 mg DAILY 08/02/19 17:00 UNV Norepinephrine Bitartrate 8 mg/ Dextrose 258 ml @ 15.383 mls/ hr 1X ONCE 07/30/19 20:30 07/31/19 13:16 DC 07/30/19 20:55 1.875 MLS/HR Ondansetron HCl (Zofran) 4 mg PRN Q8HRS PRN 07/30/19 22:30 07/31/19 22:29 DC Oseltamivir Phosphate (Tamiflu) 30 mg 1X ONCE 07/31/19 15:00 07/31/19 15:01 DC 07/31/19 17:29 30 MG Piperacillin Sod/ Tazobactam Sod (Zosyn Per Pharmacy) 1 each PRN DAILY PRN 07/31/19 10:00 08/03/19 15:03 DC Piperacillin Sod/ Tazobactam Sod 2.25 gm/Sodium Chloride 50 ml @ 100 mls/hr Q8HRS 07/31/19 10:00 08/03/19 09:25 DC 08/03/19 05:52 100 MLS/HR Ringer's Solution 1,000 ml @ 100 mls/hr Q10H 07/31/19 12:30 08/04/19 05:45 100 MLS/HR Sodium Bicarbonate 50 meq/Dextrose 1,050 ml @ 125 mls/hr 1X ONCE 07/30/19 22:30 07/31/19 06:53 DC 07/31/19 00:32 125 MLS/HR Sodium Bicarbonate (Sodium Bicarb Adult 8.4% Syr) 50 meq Q2HR 08/01/19 10:00 08/01/19 12:01 DC 08/01/19 13:03 50 MEQ Sodium Chloride 1,000 ml @ 400 mls/hr Q2H30M PRN 08/04/19 09:46 08/04/19 21:45 Sodium Chloride (Normal Saline Flush) 10 ml 1X PRN PRN 08/04/19 10:00 08/05/19 09:59 Vancomycin HCl (Vanco Per Pharmacy) 1 each PRN DAILY PRN 07/30/19 21:30 07/31/19 09:56 DC 07/31/19 05:38 1 EACH Vancomycin HCl (Vancomycin Random Level) 1 each 1X ONCE 08/01/19 22:00 08/01/19 22:01 Cancel Vancomycin HCl 2 gm/Sodium Chloride 500 ml @ 250 mls/hr 1X ONCE 07/30/19 22:00 07/30/19 23:59 DC 07/30/19 21:51 250 MLS/HR Lab Laboratory Tests Test 08/04/19 03:30 Sodium Level 144 mmol/L (136-145) Potassium Level 3.9 mmol/L (3.5-5.1) Chloride Level 97 mmol/L (98-107) Carbon Dioxide Level 24 mmol/L (21-32) Anion Gap 23 (6-14) Blood Urea Nitrogen 104 mg/dL (8-26) Creatinine 10.6 mg/dL (0.7-1.3) Estimated GFR (Cockcroft-Gault) 4.9 Glucose Level 91 mg/dL (70-99) Calcium Level 8.7 mg/dL (8.5-10.1) Phosphorus Level 8.4 mg/dL (2.6-4.7) Albumin 2.6 g/dL (3.4-5.0) Results All relevant outside records, renal labs, imaging studies, telemetry/EKG's were reviewed. JE RIBEIRO MD Aug 04, 2019 10:49
--- NOTE | 2019-08-04 11:26 | PDOC ---
Infectious Disease Note Subjective: Subjective Pt says feels better no complaints undergoing dialysis Increase urination Denies pain/F/C/SOA /cough/Chestpain/joint pain Vital Signs: Vital Signs Vital Signs Date Time Temp Pulse Resp B/P (MAP) Pulse Ox O2 Delivery O2 Flow Rate FiO2 08/04/19 07:59 98.7 85 20 151/64 (93) 93 Room Air 98.7 08/03/19 08:00 2.0 Physical Exam: PHYSICAL EXAM GENERAL: Propped up in bed, alert eating HEENT: Pupils equally round. Normal conjunctivae. Oropharynx pink and dry. Poor dentition. NECK: Supple. LUNGS: Diminished aeration, nonlabored. HEART: S1, S2 regular. ABDOMEN: Soft, nontender, bowel sounds with ostomy. midline chronic abdominal wound with n purulence EXTREMITIES: No gross edema or cyanosis. SKIN: Warm to touch without signs of rash. NEUROLOGIC: Alert and answering questions appropriately. Right-sided chest Port-A-Cath without signs of any complications. LT CW HDC in place Medications: Inpatient Meds: Current Medications Medications (Trade) Dose Ordered Sig/Joseph Start Time Stop Time Status Last Admin Dose Admin Acetaminophen (Tylenol) 650 mg PRN Q4HRS PRN 07/30/19 22:30 07/31/19 22:29 DC Albumin Human 200 ml @ 200 mls/hr 1X PRN PRN 08/04/19 10:00 08/04/19 15:59 Ceftriaxone Sodium (Rocephin) 1 gm 1X ONCE 07/30/19 19:30 07/30/19 19:31 DC 07/30/19 19:35 1 GM Daptomycin 450 mg/ Sodium Chloride 50 ml @ 100 mls/hr Q48H 08/01/19 13:00 08/03/19 12:43 100 MLS/HR Daptomycin 500 mg/ Sodium Chloride 50 ml @ 100 mls/hr 1X ONCE 07/31/19 17:30 07/31/19 17:59 DC 07/31/19 18:35 100 MLS/HR Heparin Sodium (Porcine) (Heparin Sodium) 5,000 unit Q12HR 08/02/19 21:00 08/03/19 20:56 5,000 UNIT Info (PHARMACY MONITORING -- do not chart) 1 each PRN DAILY PRN 08/04/19 10:00 Levofloxacin/ Dextrose 150 ml @ 100 mls/hr 1X ONCE 07/30/19 22:00 07/30/19 23:29 DC 07/30/19 22:02 100 MLS/HR Lidocaine HCl (Buffered Lidocaine 1%) 3 ml 1X ONCE 08/03/19 12:00 08/03/19 12:01 DC 08/03/19 12:09 5 ML Lisinopril (Prinivil) 10 mg DAILY 08/03/19 09:00 Cancel Non-Formulary Medication (Rivaroxaban (Xarelto)) 20 mg DAILY 08/02/19 17:00 UNV Norepinephrine Bitartrate 8 mg/ Dextrose 258 ml @ 15.383 mls/ hr 1X ONCE 07/30/19 20:30 07/31/19 13:16 DC 07/30/19 20:55 1.875 MLS/HR Ondansetron HCl (Zofran) 4 mg PRN Q8HRS PRN 07/30/19 22:30 07/31/19 22:29 DC Oseltamivir Phosphate (Tamiflu) 30 mg 1X ONCE 07/31/19 15:00 07/31/19 15:01 DC 07/31/19 17:29 30 MG Piperacillin Sod/ Tazobactam Sod (Zosyn Per Pharmacy) 1 each PRN DAILY PRN 07/31/19 10:00 08/03/19 15:03 DC Piperacillin Sod/ Tazobactam Sod 2.25 gm/Sodium Chloride 50 ml @ 100 mls/hr Q8HRS 07/31/19 10:00 08/03/19 09:25 DC 08/03/19 05:52 100 MLS/HR Ringer's Solution 1,000 ml @ 100 mls/hr Q10H 07/31/19 12:30 08/04/19 05:45 100 MLS/HR Sodium Bicarbonate 50 meq/Dextrose 1,050 ml @ 125 mls/hr 1X ONCE 07/30/19 22:30 07/31/19 06:53 DC 07/31/19 00:32 125 MLS/HR Sodium Bicarbonate (Sodium Bicarb Adult 8.4% Syr) 50 meq Q2HR 08/01/19 10:00 08/01/19 12:01 DC 08/01/19 13:03 50 MEQ Sodium Chloride 1,000 ml @ 400 mls/hr Q2H30M PRN 08/04/19 09:46 08/04/19 21:45 Sodium Chloride (Normal Saline Flush) 10 ml 1X PRN PRN 08/04/19 10:00 08/05/19 09:59 Vancomycin HCl (Vanco Per Pharmacy) 1 each PRN DAILY PRN 07/30/19 21:30 07/31/19 09:56 DC 07/31/19 05:38 1 EACH Vancomycin HCl (Vancomycin Random Level) 1 each 1X ONCE 08/01/19 22:00 08/01/19 22:01 Cancel Vancomycin HCl 2 gm/Sodium Chloride 500 ml @ 250 mls/hr 1X ONCE 07/30/19 22:00 07/30/19 23:59 DC 07/30/19 21:51 250 MLS/HR Labs: Lab Laboratory Tests Test 08/04/19 03:30 Sodium Level 144 mmol/L (136-145) Potassium Level 3.9 mmol/L (3.5-5.1) Chloride Level 97 mmol/L (98-107) Carbon Dioxide Level 24 mmol/L (21-32) Anion Gap 23 (6-14) Blood Urea Nitrogen 104 mg/dL (8-26) Creatinine 10.6 mg/dL (0.7-1.3) Estimated GFR (Cockcroft-Gault) 4.9 Glucose Level 91 mg/dL (70-99) Calcium Level 8.7 mg/dL (8.5-10.1) Phosphorus Level 8.4 mg/dL (2.6-4.7) Albumin 2.6 g/dL (3.4-5.0) Micro RUN DATE: 08/04/19 [facility] LAB *LIVE* PAGE 1 RUN TIME: 717 Specimen Inquiry PATIENT: KELLY DONOVAN ACCT: [id number] LOC: [address] [place] [address] U: [id number] AGE/SX: 64/M ROOM: 658 RE07/30/[address]: DWAYNE TIDWELL MD : 1955 BED: 1 DIS: STATUS: ADM IN TLOC: SPEC #: [id number] MAGEN: 07/30/19 STATUS: COMP REQ #: [id number] RECD: 07/30/[address]: RIYA MALLORY MD SOURCE: BLOOD ENTR: 07/31/19-[address]: TOAN HERNANDEZ SPDC: ORDERED: BLD CULT - LC Procedure Result BLOOD CULTURE LC Final Final report BLD CULT RESULT 1 Final Staphylococcus aureus Based on susceptibility to oxacillin this isolate would be susceptible to: *Penicillinase-stable penicillins, such as: Cloxacillin, Dicloxacillin, Nafcillin *Beta-lactam combination agents, such as: Amoxicillin-clavulanic acid, Ampicillin-sulbactam, Piperacillin-tazobactam *Oral cephems, such as: Cefaclor, Cefdinir, Cefpodoxime, Cefprozil, Cefuroxime, Cephalexin, Loracarbef *Parenteral cephems, such as: Cefazolin, Cefepime, Cefotaxime, Cefotetan, Ceftaroline, Ceftizoxime, Ceftriaxone, Cefuroxime *Carbapenems, such as: Doripenem, Ertapenem, Imipenem, Meropenem CLINDAMYCIN <=0.25 =S ERYTHROMYCIN <=0.25 =S Performed at: - [facility], [place] [id number] Documentation Lead: ALEXANDRA Carrillo MD, Phone: [phone] ANTIMICROBIAL SUSCEPTIBILITY Final S = Susceptible; I = Intermediate; R = Resistant P = Positive; N = Negative MICS are expressed in micrograms per mL Antibiotic RSLT#1 RSLT#2 RSLT#3 RSLT#4 Ciprofloxacin S<=0.5 Gentamicin S<=0.5 Levofloxacin S =0.25 Linezolid S =4 Moxifloxacin S<=0.25 Nitrofurantoin S<=16 Oxacillin S =0.5 Penicillin R>=0.5 Quinupristin/Dalfopristin S<=0.25 Rifampin S<=0.5 Tetracycline S<=1 CONTINUED ON NEXT PAGE RUN DATE: 08/04/19 [facility] *LIVE* PAGE 2 RUN TIME: 717 Specimen Inquiry SPEC: [id number] PATIENT: KELLY DONOVAN [id number] (Continued) Procedure Result ANTIMICROBIAL SUSCEPTIBILITY Final (continued) Trimethoprim/Sulfa S<=10 Vancomycin S =1 Min Inhibitory Conc (1 Drug) Final report Result 1 Staphylococcus aureus DAPTOMYCIN 1.0 = S Objective: Assessment: Septic shock, POA off pressors from Staph aureus sepsis Methicillin sensitive Staph aureus bacteremia 07/30 and 07/31 source unclear ,infected chronic abdo wound vs ba cath ( 2014) Influenza B Hypothermia - improved THAD Colon cancer undergoing chemo at [facility]. Port-a-cath in place. 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 Clarke at [facility] Plan: Plan of Care DC dapto (added 07/31) ;Last dose vancomycin 07/31 Start cefazolin Tamiflu, renal dosing, times one dose 07/31 Ba cath needs removal,pt agreed Will need removal of infected mesh,pt wants to hold off for now He f/u with DR Clarke AT [facility] risk of recurrence discussed with potential for metastatic complications despite adequate antibiotic therapy Monitor labs and cults f/u Portacath bc from 2/3 Local wound care per wound team Droplet precautions D/w nursing ARMINDA HENNESSY MD Aug 04, 2019 11:26
--- NOTE | 2019-08-04 13:02 | PDOC ---
PROGRESS NOTES Subjective Subjective HPI - f/u of Stage 4 colon cancer ROS - no fever Objective Objective Vital Signs Date Time Temp Pulse Resp B/P (MAP) Pulse Ox O2 Delivery O2 Flow Rate FiO2 08/04/19 07:59 98.7 85 20 151/64 (93) 93 Room Air 98.7 08/03/19 08:00 2.0 Intake and Output 08/04/19 07:00 Intake Total 240 ml Output Total 750 ml Balance -510 ml Intake Oral 240 ml Output Urine Total 450 ml Stool Total 300 ml # Voids 1 Physical Exam General: Alert, No acute distress Neck: No JVD Assessment Assessment Problems Medical Problems: (1) Acute renal failure Status: Acute (2) Influenza Status: Acute (3) Pneumonia Status: Acute (4) Septic shock Status: Acute IMPRESSION AND PLAN: 1. Stage 4 colon cancer with predominantly omental metastasis and positive KRAS mutation diagnosed in 12/2014. He is currently on chemotherapy with FOLFIRI under the direction of Dr. Thang Haji. He is now admitted with septic shock from Staph aureus sepsis. ID is on board managing antibiotics. I have advised him to follow up with Dr. Thang Haji upon discharge. 2. Influenza B. Continue management per ID. 3. Septic shock, improving. 4. Acute renal failure due to septic shock. Appreciate Nephrology consultation. Cr 10.6 Comment Review of Relevant I have reviewed the following items renetta (where applicable) has been applied. Labs Laboratory Tests Test 08/02/19 14:10 08/03/19 04:00 08/04/19 03:30 Urine Collection Type Unknown Urine Color Yellow Urine Clarity Clear Urine pH 5.5 Urine Specific [place] 1.020 Urine Protein >=300 mg/dL (NEG-TRACE) Urine Glucose (UA) 100 mg/dL (NEG) Urine Ketones (Stick) Negative mg/dL (NEG) Urine Blood Large (NEG) Urine Nitrite Negative (NEG) Urine Bilirubin Negative (NEG) Urine Urobilinogen Dipstick 0.2 mg/dL (0.2 mg/dL) Urine Leukocyte Esterase Negative (NEG) Urine RBC >40 /HPF (0-2) Urine WBC 1-4 /HPF (0-4) Urine Squamous Epithelial Cells Few /LPF Urine Bacteria Few /HPF (0-FEW) Sodium Level 146 mmol/L (136-145) 144 mmol/L (136-145) Potassium Level 4.3 mmol/L (3.5-5.1) 3.9 mmol/L (3.5-5.1) Chloride Level 101 mmol/L (98-107) 97 mmol/L (98-107) Carbon Dioxide Level 17 mmol/L (21-32) 24 mmol/L (21-32) Anion Gap 28 (6-14) 23 (6-14) Blood Urea Nitrogen 205 mg/dL (8-26) 104 mg/dL (8-26) Creatinine 17.0 mg/dL (0.7-1.3) 10.6 mg/dL (0.7-1.3) Estimated GFR (Cockcroft-Gault) 2.8 4.9 Glucose Level 112 mg/dL (70-99) 91 mg/dL (70-99) Uric Acid 15.1 mg/dL (3.5-7.2) Calcium Level 8.7 mg/dL (8.5-10.1) 8.7 mg/dL (8.5-10.1) Phosphorus Level 11.8 mg/dL (2.6-4.7) 8.4 mg/dL (2.6-4.7) Creatine Kinase 131 U/L (39-308) Albumin 2.7 g/dL (3.4-5.0) 2.6 g/dL (3.4-5.0) Hepatitis B Surface Antigen Nonreactive (Nonreactive) Hepatitis B Surface Antibody, Quant <3.1 mIU/mL (Immunity>9.9) Hepatitis B Core Total Antibody Nonreactive (Nonreactive) Laboratory Tests Test 08/04/19 03:30 Sodium Level 144 mmol/L (136-145) Potassium Level 3.9 mmol/L (3.5-5.1) Chloride Level 97 mmol/L (98-107) Carbon Dioxide Level 24 mmol/L (21-32) Anion Gap 23 (6-14) Blood Urea Nitrogen 104 mg/dL (8-26) Creatinine 10.6 mg/dL (0.7-1.3) Estimated GFR (Cockcroft-Gault) 4.9 Glucose Level 91 mg/dL (70-99) Calcium Level 8.7 mg/dL (8.5-10.1) Phosphorus Level 8.4 mg/dL (2.6-4.7) Albumin 2.6 g/dL (3.4-5.0) Hepatitis B Core Total Antibody Nonreactive (Nonreactive) Microbiology 08/02/19 Blood Culture - Preliminary, Resulted NO GROWTH AFTER 2 DAYS Medications Current Medications Ceftriaxone Sodium (Rocephin) 1 gm 1X ONCE IVP Last administered on 07/30/19at 19:35; Start 07/30/19 at 19:30; Stop 07/30/19 at 19:31; Status DC Sodium Chloride 1,000 ml @ 1,000 mls/hr 1X ONCE IV Last administered on 07/30/19at 19:31; Start 07/30/19 at 19:30; Stop 07/30/19 at 20:29; Status DC Ondansetron HCl (Zofran) 4 mg 1X ONCE IVP Last administered on 07/30/19at 19:34; Start 07/30/19 at 19:30; Stop 07/30/19 at 19:31; Status DC Norepinephrine Bitartrate 8 mg/ Dextrose 258 ml @ 15.383 mls/ hr 1X ONCE IV Last administered on 07/30/19at 20:55; Start 07/30/19 at 20:30; Stop 07/31/19 at 13:16; Status DC Sodium Chloride 2,190 ml @ 2,190 mls/hr Q1H IV Last administered on 07/30/19at 21:39; Start 07/30/19 at 21:30; Stop 07/30/19 at 21:40; Status DC Vancomycin HCl (Vanco Per Pharmacy) 1 each PRN DAILY PRN MC SEE COMMENTS Last administered on 07/31/19at 05:38; Start 07/30/19 at 21:30; Stop 07/31/19 at 09:56; Status DC Levofloxacin/ Dextrose 150 ml @ 100 mls/hr 1X ONCE IV Last administered on 07/30/19at 22:02; Start 07/30/19 at 22:00; Stop 07/30/19 at 23:29; Status DC Sodium Chloride 1,000 ml @ 1,000 mls/hr Q1H IV Last administered on 07/30/19at 22:30; Start 07/30/19 at 21:40; Stop 07/30/19 at 23:28; Status DC Vancomycin HCl 2 gm/Sodium Chloride 500 ml @ 250 mls/hr 1X ONCE IV Last ad ministered on 07/30/19at 21:51; Start 07/30/19 at 22:00; Stop 07/30/19 at 23:59; Status DC Sodium Bicarbonate 50 meq/Dextrose 1,050 ml @ 125 mls/hr 1X ONCE IV Last administered on 07/31/19at 00:32; Start 07/30/19 at 22:30; Stop 07/31/19 at 06:53; Status DC Ondansetron HCl (Zofran) 4 mg PRN Q8HRS PRN IV NAUSEA/VOMITING 1ST CHOICE; Start 07/30/19 at 22:30; Stop 07/31/19 at 22:29; Status DC Acetaminophen (Tylenol) 650 mg PRN Q4HRS PRN PO FEVER; Start 07/30/19 at 22:30; Stop 07/31/19 at 22:29; Status DC Vancomycin HCl (Vancomycin Random Level) 1 each 1X ONCE MC ; Start 08/01/19 at 22:00; Stop 08/01/19 at 22:01; Status Cancel Piperacillin Sod/ Tazobactam Sod (Zosyn Per Pharmacy) 1 each PRN DAILY PRN MC SEE COMMENTS; Start 07/31/19 at 10:00; Stop 08/03/19 at 15:03; Status DC Piperacillin Sod/ Tazobactam Sod 2.25 gm/Sodium Chloride 50 ml @ 100 mls/hr Q8HRS IV Last administered on 08/03/19at 05:52; Start 07/31/19 at 10:00; Stop 08/03/19 at 09:25; Status DC Ringer's Solution 1,000 ml @ 100 mls/hr Q10H IV Last administered on 08/04/19at 05:45; Start 07/31/19 at 12:30 Sodium Chloride 500 ml @ 0 mls/hr QID PRN IV UO< 30cc/hr over previous 6hrs Last administered on 08/01/19at 10:16; Start 07/31/19 at 12:30 Oseltamivir Phosphate (Tamiflu) 30 mg DAILY PO ; Start 07/31/19 at 15:00; Stop 08/04/19 at 09:01; Status Cancel Oseltamivir Phosphate (Tamiflu) 30 mg 1X ONCE PO Last administered on 07/31/19at 17:29; Start 07/31/19 at 15:00; Stop 07/31/19 at 15:01; Status DC Daptomycin 500 mg/ Sodium Chloride 50 ml @ 100 mls/hr 1X ONCE IV Last administered on 07/31/19at 18:35; Start 07/31/19 at 17:30; Stop 07/31/19 at 17:59; Status DC Sodium Bicarbonate (Sodium Bicarb Adult 8.4% Syr) 50 meq Q2HR IV Last administered on 08/01/19at 13:03; Start 08/01/19 at 10:00; Stop 08/01/19 at 12:01; Status DC Albumin Human 100 ml @ 100 mls/hr TID IV Last administered on 08/02/19at 20:23; Start 08/01/19 at 09:30; Stop 08/02/19 at 21:59; Status DC Daptomycin 450 mg/ Sodium Chloride 50 ml @ 100 mls/hr Q48H IV Last administered on 08/03/19at 12:43; Start 08/01/19 at 13:00; Stop 08/04/19 at 12:33; Status DC Lisinopril (Prinivil) 10 mg DAILY PO ; Start 08/03/19 at 09:00; Status Cancel Non-Formulary Medication (Rivaroxaban (Xarelto)) 20 mg DAILY PO ; Start 08/02/19 at 17:00; Status UNV Heparin Sodium (Porcine) (Heparin Sodium) 5,000 unit Q12HR SQ Last administered on 08/03/19at 20:56; Start 08/02/19 at 21:00 Lidocaine HCl (Buffered Lidocaine 1%) 3 ml STK-MED ONCE .ROUTE ; Start 08/03/19 at 10:59; Stop 08/03/19 at 10:59; Status DC Sodium Chloride 1,000 ml @ 1,000 mls/hr Q1H PRN IV hypotension; Start 08/03/19 at 11:29; Stop 08/03/19 at 17:28; Status UNV Albumin Human 200 ml @ 200 mls/hr 1X PRN PRN IV Hypotension; Start 08/03/19 at 11:30; Stop 08/03/19 at 17:29; Status DC Sodium Chloride 1,000 ml @ 400 mls/hr Q2H30M PRN IV PATENCY; Start 08/03/19 at 11:29; Stop 08/03/19 at 23:28; Status DC Info (PHARMACY MONITORING -- do not chart) 1 each PRN DAILY PRN MC SEE COMMENTS; Start 08/03/19 at 11:30 Info (PHARMACY MONITORING -- do not chart) 1 each PRN DAILY PRN MC SEE COMMENTS; Start 08/03/19 at 11:30; Stop 08/03/19 at 11:39; Status DC Lidocaine HCl (Buffered Lidocaine 1%) 3 ml 1X ONCE INJ Last administered on 08/03/19at 12:09; Start 08/03/19 at 12:00; Stop 08/03/19 at 12:01; Status DC Sodium Chloride 1,000 ml @ 1,000 mls/hr Q1H PRN IV hypotension; Start 08/04/19 at 09:46; Stop 08/04/19 at 15:45 Albumin Human 200 ml @ 200 mls/hr 1X PRN PRN IV Hypotension; Start 08/04/19 at 10:00; Stop 08/04/19 at 15:59 Sodium Chloride (Normal Saline Flush) 10 ml 1X PRN PRN IV AP catheter pack; Start 08/04/19 at 10:00; Stop 08/05/19 at 09:59 Sodium Chloride (Normal Saline Flush) 10 ml 1X PRN PRN IV LATCHER catheter pack; Start 08/04/19 at 10:00; Stop 08/05/19 at 09:59 Sodium Chloride 1,000 ml @ 400 mls/hr Q2H30M PRN IV PATENCY; Start 08/04/19 at 09:46; Stop 08/04/19 at 21:45 Info (PHARMACY MONITORING -- do not chart) 1 each PRN DAILY PRN MC SEE COMMENTS; Start 08/04/19 at 10:00; Status UNV Info (PHARMACY MONITORING -- do not chart) 1 each PRN DAILY PRN MC SEE COMMENTS; Start 08/04/19 at 10:00 Cefazolin Sodium (Ancef) 1 gm DAILY IVP ; Start 08/04/19 at 13:00 Active Scripts Active Reported Xarelto (Rivaroxaban) 20 Mg Tablet 20 Mg PO DAILY Lisinopril 20 Mg Tablet 10 Mg PO DAILY Vitals/I & O Vital Sign - Last 24 Hours 08/03/19 08/03/19 08/03/19 08/04/19 19:57 20:00 23:53 03:54 Temp 97.6 98.6 99.0 97.6 98.6 99.0 Pulse 93 99 90 Resp 16 18 18 B/P (MAP) 149/76 (100) 151/79 (103) 149/75 (99) Pulse Ox 94 96 96 O2 Delivery Room Air Room Air Room Air Room Air 08/04/19 07:59 Temp 98.7 98.7 Pulse 85 Resp 20 B/P (MAP) 151/64 (93) Pulse Ox 93 O2 Delivery Room Air Intake and Output 08/03/19 08/03/19 08/04/19 15:00 23:00 07:00 Intake Total 0 ml 240 ml Output Total 600 ml 150 ml Balance 0 ml -360 ml -150 ml Nutrition Consultation Dietary Evaluation: Recommendations by RD: Dietary education by RD, Increase Calorie Intake, Protein supplementation Comments: nepro bid REC mvi and vit c per wound protocal Expected Outcomes/Goals: to meet >75% est nutr needs Malnutrition Findings: Food and Nutrition Intake (Mod: <75% est energy req 7days Weight Status: Appropriate LAWRENCE CARROLL MD Aug 04, 2019 13:02
[2019-08-04 15:05] VITALS: BP 127/69
[2019-08-04] MEDS: ceFAZolin SODIUM IV Push 1 GM VIAL. IVP SCH (16:29)
[2019-08-04] MEDS: HEPARIN for SUB-Q USE 5,000 UNIT/ML VIAL. SQ SCH ×2 (16:47→22:01)
[2019-08-04 19:37] VITALS: BP 144/70
[2019-08-04 23:16] VITALS: BP 154/78
[2019-08-05] MEDS: IV RINGERS,LACTATED 1000ML 1,000 ML IV SCH ×3 (02:30→21:59)
[2019-08-05 03:27] LABS: BASO % 0 % (0-3); EOS # 0.1 x10^3/uL (0.0-0.7); EOS % 1 % (0-3); HEMATOCRIT 32.9 % (39.0-53.0); LYMPH # 0.7 x10^3/uL (1.0-4.8); LYMPH % 5 % (24-48); MEAN CORPUSCULAR HEMOGLOBIN 28 pg (25-35); MEAN CORPUSCULAR HGB CONC 33 g/dL (31-37); MEAN CORPUSCULAR VOLUME 84 fL (79-100); MONO # 1.1 x10^3/uL (0.0-1.1); MONO % 8 % (0-9); NEUT # 12.2 x10^3/uL (1.8-7.7); NEUT % 86 % (31-73); PLATELET COUNT 211 x10^3/uL (140-400); RED CELL DISTRIBUTION WIDTH 17.2 % (11.5-14.5); WHITE BLOOD COUNT 14.1 x10^3/uL (4.0-11.0)
[2019-08-05 03:31] VITALS: BP 127/77
[2019-08-05 03:34] LABS: CREATININE 7.3 mg/dL (0.7-1.3); GFR 7.5; POTASSIUM 4.2 mmol/L (3.5-5.1)
[2019-08-05 03:37] LABS: ALBUMIN 2.7 g/dL (3.4-5.0); PHOSPHORUS 6.8 mg/dL (2.6-4.7)
[2019-08-05] MEDS: HEPARIN for SUB-Q USE 5,000 UNIT/ML VIAL. SQ SCH ×2 (07:48→22:04)
[2019-08-05 07:55] VITALS: BP 144/79
[2019-08-05] MEDS: ceFAZolin SODIUM IV Push 1 GM VIAL. IVP SCH (08:34)
[2019-08-05 08:45] LABS: PROTHROMBIN TIME PATIENT 15.9 SEC (11.7-14.0)
[2019-08-05 09:04] LABS: CREATININE,RANDOM URINE 134.6 mg/dL (Not Establ.)
--- NOTE | 2019-08-05 09:04 | PDOC ---
PROGRESS NOTES Chief Complaint Chief Complaint Septic shock, present on admission. Hypothermia. Influenza B. Acute kidney injury. Colon cancer, undergoing chemotherapy. 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 Critically ill. 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 He says his last treatment was a couple of weeks ago and since then has been feeling progressively weak with intermittent nausea and vomiting and increased ostomy output more than usual. He has developed a cough with some phlegm production as well. On arrival to the ER, he was hypothermic, hypotensive with bandemia and lactic acid of 2.6. Chest x-ray showed patchy bibasilar opacities and possible small left pleural effusion. He tested positive for influenza B. He was also in acute renal failure with a creatinine of 15.1 and BUN 216. He is admitted to the intensive care unit on Levophed drip. He was dosed with vancomycin, ceftriaxone, and levofloxacin. On 5L NCO2. He has a chronic abdominal wound for which he is followed by Dr. Clarke at [facility] every 3 weeks. 2: Patient seen and examined in the ICU. He had one of 2 bottles growing gram- positive cocci (infectious disease is following) 2: No Overnight events. Seen bedside. He states he is feeling better. Profou ndly weak, cannot even reposition himself in bed. No SOB or CP. Discussed need for mesh removal and port removal given bacteremia - would like to f/u at [facility] with DR Clarke instead. Risk of failure and recurrence with metastatic seeding discussed. 08/03: He is feeling about the same. Repeat blood cultures negative, renal function unchanged. He consents to temporary HD catheter placement for now. Still very weak, deconditioned. 08/04: Dialysis He is still weak, going for port removal today. Still short of breath. Plan: Cont antibiotics, dialysis LTAC referral Vitals Vitals Vital Signs Date Time Temp Pulse Resp B/P (MAP) Pulse Ox O2 Delivery O2 Flow Rate FiO2 08/05/19 07:55 98.7 96 18 144/79 (100) 93 Room Air 98.7 08/04/19 08:00 2.0 Physical Exam Physical Exam GENERAL: Propped up in bed, alert eating HEENT: Pupils equally round. Normal conjunctivae. Oropharynx pink and dry. Poor dentition. NECK: Supple. LUNGS: Diminished aeration, nonlabored. HEART: S1, S2 regular. ABDOMEN: Soft, nontender, bowel sounds with ostomy. midline chronic abdominal wound with n purulence EXTREMITIES: No gross edema or cyanosis. SKIN: Warm to touch without signs of rash. NEUROLOGIC: Alert and answering questions appropriately. Right-sided chest Port-A-Cath without signs of any complications. LT CW HDC in place General: Alert, No acute distress Lungs: Clear Labs LABS Laboratory Tests Test 08/05/19 03:00 08/05/19 08:20 White Blood Count 14.1 x10^3/uL (4.0-11.0) Red Blood Count 3.90 x10^6/uL (4.30-5.70) Hemoglobin 11.0 g/dL (13.0-17.5) Hematocrit 32.9 % (39.0-53.0) Mean Corpuscular Volume 84 fL (79-100) Mean Corpuscular Hemoglobin 28 pg (25-35) Mean Corpuscular Hemoglobin Concent 33 g/dL (31-37) Red Cell Distribution Width 17.2 % (11.5-14.5) Platelet Count 211 x10^3/uL (140-400) Neutrophils (%) (Auto) 86 % (31-73) Lymphocytes (%) (Auto) 5 % (24-48) Monocytes (%) (Auto) 8 % (0-9) Eosinophils (%) (Auto) 1 % (0-3) Basophils (%) (Auto) 0 % (0-3) Neutrophils # (Auto) 12.2 x10^3/uL (1.8-7.7) Lymphocytes # (Auto) 0.7 x10^3/uL (1.0-4.8) Monocytes # (Auto) 1.1 x10^3/uL (0.0-1.1) Eosinophils # (Auto) 0.1 x10^3/uL (0.0-0.7) Basophils # (Auto) 0.0 x10^3/uL (0.0-0.2) Sodium Level 142 mmol/L (136-145) Potassium Level 4.2 mmol/L (3.5-5.1) Chloride Level 102 mmol/L (98-107) Carbon Dioxide Level 26 mmol/L (21-32) Anion Gap 14 (6-14) Blood Urea Nitrogen 65 mg/dL (8-26) Creatinine 7.3 mg/dL (0.7-1.3) Estimated GFR (Cockcroft-Gault) 7.5 Glucose Level 111 mg/dL (70-99) Calcium Level 9.0 mg/dL (8.5-10.1) Phosphorus Level 6.8 mg/dL (2.6-4.7) Albumin 2.7 g/dL (3.4-5.0) Prothrombin Time 15.9 SEC (11.7-14.0) Prothromb Time International Ratio 1.3 (0.8-1.1) Activated Partial Thromboplast Time 30 SEC (24-38) Assessment and Plan Assessmemt and Plan Problems Medical Problems: (1) Acute renal failure Status: Acute (2) Influenza Status: Acute (3) Pneumonia Status: Acute (4) Septic shock Status: Acute Comment Review of Relevant I have reviewed the following items renetta (where applicable) has been applied. Labs Laboratory Tests Test 08/04/19 03:30 08/05/19 03:00 08/05/19 08:20 Sodium Level 144 mmol/L (136-145) 142 mmol/L (136-145) Potassium Level 3.9 mmol/L (3.5-5.1) 4.2 mmol/L (3.5-5.1) Chloride Level 97 mmol/L (98-107) 102 mmol/L (98-107) Carbon Dioxide Level 24 mmol/L (21-32) 26 mmol/L (21-32) Anion Gap 23 (6-14) 14 (6-14) Blood Urea Nitrogen 104 mg/dL (8-26) 65 mg/dL (8-26) Creatinine 10.6 mg/dL (0.7-1.3) 7.3 mg/dL (0.7-1.3) Estimated GFR (Cockcroft-Gault) 4.9 7.5 Glucose Level 91 mg/dL (70-99) 111 mg/dL (70-99) Calcium Level 8.7 mg/dL (8.5-10.1) 9.0 mg/dL (8.5-10.1) Phosphorus Level 8.4 mg/dL (2.6-4.7) 6.8 mg/dL (2.6-4.7) Albumin 2.6 g/dL (3.4-5.0) 2.7 g/dL (3.4-5.0) Hepatitis B Core Total Antibody Nonreactive (Nonreactive) White Blood Count 14.1 x10^3/uL (4.0-11.0) Red Blood Count 3.90 x10^6/uL (4.30-5.70) Hemoglobin 11.0 g/dL (13.0-17.5) Hematocrit 32.9 % (39.0-53.0) Mean Corpuscular Volume 84 fL (79-100) Mean Corpuscular Hemoglobin 28 pg (25-35) Mean Corpuscular Hemoglobin Concent 33 g/dL (31-37) Red Cell Distribution Width 17.2 % (11.5-14.5) Platelet Count 211 x10^3/uL (140-400) Neutrophils (%) (Auto) 86 % (31-73) Lymphocytes (%) (Auto) 5 % (24-48) Monocytes (%) (Auto) 8 % (0-9) Eosinophils (%) (Auto) 1 % (0-3) Basophils (%) (Auto) 0 % (0-3) Neutrophils # (Auto) 12.2 x10^3/uL (1.8-7.7) Lymphocytes # (Auto) 0.7 x10^3/uL (1.0-4.8) Monocytes # (Auto) 1.1 x10^3/uL (0.0-1.1) Eosinophils # (Auto) 0.1 x10^3/uL (0.0-0.7) Basophils # (Auto) 0.0 x10^3/uL (0.0-0.2) Prothrombin Time 15.9 SEC (11.7-14.0) Prothromb Time International Ratio 1.3 (0.8-1.1) Activated Partial Thromboplast Time 30 SEC (24-38) Laboratory Tests Test 08/05/19 03:00 08/05/19 08:20 White Blood Count 14.1 x10^3/uL (4.0-11.0) Red Blood Count 3.90 x10^6/uL (4.30-5.70) Hemoglobin 11.0 g/dL (13.0-17.5) Hematocrit 32.9 % (39.0-53.0) Mean Corpuscular Volume 84 fL (79-100) Mean Corpuscular Hemoglobin 28 pg (25-35) Mean Corpuscular Hemoglobin Concent 33 g/dL (31-37) Red Cell Distribution Width 17.2 % (11.5-14.5) Platelet Count 211 x10^3/uL (140-400) Neutrophils (%) (Auto) 86 % (31-73) Lymphocytes (%) (Auto) 5 % (24-48) Monocytes (%) (Auto) 8 % (0-9) Eosinophils (%) (Auto) 1 % (0-3) Basophils (%) (Auto) 0 % (0-3) Neutrophils # (Auto) 12.2 x10^3/uL (1.8-7.7) Lymphocytes # (Auto) 0.7 x10^3/uL (1.0-4.8) Monocytes # (Auto) 1.1 x10^3/uL (0.0-1.1) Eosinophils # (Auto) 0.1 x10^3/uL (0.0-0.7) Basophils # (Auto) 0.0 x10^3/uL (0.0-0.2) Sodium Level 142 mmol/L (136-145) Potassium Level 4.2 mmol/L (3.5-5.1) Chloride Level 102 mmol/L (98-107) Carbon Dioxide Level 26 mmol/L (21-32) Anion Gap 14 (6-14) Blood Urea Nitrogen 65 mg/dL (8-26) Creatinine 7.3 mg/dL (0.7-1.3) Estimated GFR (Cockcroft-Gault) 7.5 Glucose Level 111 mg/dL (70-99) Calcium Level 9.0 mg/dL (8.5-10.1) Phosphorus Level 6.8 mg/dL (2.6-4.7) Albumin 2.7 g/dL (3.4-5.0) Prothrombin Time 15.9 SEC (11.7-14.0) Prothromb Time International Ratio 1.3 (0.8-1.1) Activated Partial Thromboplast Time 30 SEC (24-38) Microbiology 08/02/19 Blood Culture - Preliminary, Resulted NO GROWTH AFTER 2 DAYS Medications Current Medications Ceftriaxone Sodium (Rocephin) 1 gm 1X ONCE IVP Last administered on 07/30/19at 19:35; Start 07/30/19 at 19:30; Stop 07/30/19 at 19:31; Status DC Sodium Chloride 1,000 ml @ 1,000 mls/hr 1X ONCE IV Last administered on 07/30/19at 19:31; Start 07/30/19 at 19:30; Stop 07/30/19 at 20:29; Status DC Ondansetron HCl (Zofran) 4 mg 1X ONCE IVP Last administered on 07/30/19at 19 :34; Start 07/30/19 at 19:30; Stop 07/30/19 at 19:31; Status DC Norepinephrine Bitartrate 8 mg/ Dextrose 258 ml @ 15.383 mls/ hr 1X ONCE IV Last administered on 07/30/19at 20:55; Start 07/30/19 at 20:30; Stop 07/31/19 at 13:16; Status DC Sodium Chloride 2,190 ml @ 2,190 mls/hr Q1H IV Last administered on 07/30/19at 21:39; Start 07/30/19 at 21:30; Stop 07/30/19 at 21:40; Status DC Vancomycin HCl (Vanco Per Pharmacy) 1 each PRN DAILY PRN MC SEE COMMENTS Last administered on 07/31/19at 05:38; Start 07/30/19 at 21:30; Stop 07/31/19 at 09:56; Status DC Levofloxacin/ Dextrose 150 ml @ 100 mls/hr 1X ONCE IV Last administered on 07/30/19at 22:02; Start 07/30/19 at 22:00; Stop 07/30/19 at 23:29; Status DC Sodium Chloride 1,000 ml @ 1,000 mls/hr Q1H IV Last administered on 07/30/19at 22:30; Start 07/30/19 at 21:40; Stop 07/30/19 at 23:28; Status DC Vancomycin HCl 2 gm/Sodium Chloride 500 ml @ 250 mls/hr 1X ONCE IV Last administered on 07/30/19at 21:51; Start 07/30/19 at 22:00; Stop 07/30/19 at 23:59; Status DC Sodium Bicarbonate 50 meq/Dextrose 1,050 ml @ 125 mls/hr 1X ONCE IV Last administered on 07/31/19at 00:32; Start 07/30/19 at 22:30; Stop 07/31/19 at 06:53; Status DC Ondansetron HCl (Zofran) 4 mg PRN Q8HRS PRN IV NAUSEA/VOMITING 1ST CHOICE; Start 07/30/19 at 22:30; Stop 07/31/19 at 22:29; Status DC Acetaminophen (Tylenol) 650 mg PRN Q4HRS PRN PO FEVER; Start 07/30/19 at 22:30; Stop 07/31/19 at 22:29; Status DC Vancomycin HCl (Vancomycin Random Level) 1 each 1X ONCE MC ; Start 08/01/19 at 22:00; Stop 08/01/19 at 22:01; Status Cancel Piperacillin Sod/ Tazobactam Sod (Zosyn Per Pharmacy) 1 each PRN DAILY PRN MC SEE COMMENTS; Start 07/31/19 at 10:00; Stop 08/03/19 at 15:03; Status DC Piperacillin Sod/ Tazobactam Sod 2.25 gm/Sodium Chloride 50 ml @ 100 mls/hr Q8HRS IV Last administered on 08/03/19at 05:52; Start 07/31/19 at 10:00; Stop 08/03/19 at 09:25; Status DC Ringer's Solution 1,000 ml @ 100 mls/hr Q10H IV Last administered on 08/04/19at 05:45; Start 07/31/19 at 12:30 Sodium Chloride 500 ml @ 0 mls/hr QID PRN IV UO< 30cc/hr over previous 6hrs Last administered on 08/01/19at 10:16; Start 07/31/19 at 12:30 Oseltamivir Phosphate (Tamiflu) 30 mg DAILY PO ; Start 07/31/19 at 15:00; Stop 08/04/19 at 09:01; Status Cancel Oseltamivir Phosphate (Tamiflu) 30 mg 1X ONCE PO Last administered on 07/31/19at 17:29; Start 07/31/19 at 15:00; Stop 07/31/19 at 15:01; Status DC Daptomycin 500 mg/ Sodium Chloride 50 ml @ 100 mls/hr 1X ONCE IV Last administered on 07/31/19at 18:35; Start 07/31/19 at 17:30; Stop 07/31/19 at 17:59; Status DC Sodium Bicarbonate (Sodium Bicarb Adult 8.4% Syr) 50 meq Q2HR IV Last administered on 08/01/19at 13:03; Start 08/01/19 at 10:00; Stop 08/01/19 at 12:01; Status DC Albumin Human 100 ml @ 100 mls/hr TID IV Last administered on 08/02/19at 20:23; Start 08/01/19 at 09:30; Stop 08/02/19 at 21:59; Status DC Daptomycin 450 mg/ Sodium Chloride 50 ml @ 100 mls/hr Q48H IV Last adminis tered on 08/03/19at 12:43; Start 08/01/19 at 13:00; Stop 08/04/19 at 12:33; Status DC Lisinopril (Prinivil) 10 mg DAILY PO ; Start 08/03/19 at 09:00; Status Cancel Non-Formulary Medication (Rivaroxaban (Xarelto)) 20 mg DAILY PO ; Start 08/02/19 at 17:00; Status UNV Heparin Sodium (Porcine) (Heparin Sodium) 5,000 unit Q12HR SQ Last administered on 08/04/19at 22:01; Start 08/02/19 at 21:00 Lidocaine HCl (Buffered Lidocaine 1%) 3 ml STK-MED ONCE .ROUTE ; Start 08/03/19 at 10:59; Stop 08/03/19 at 10:59; Status DC Sodium Chloride 1,000 ml @ 1,000 mls/hr Q1H PRN IV hypotension; Start 08/03/19 at 11:29; Stop 08/03/19 at 17:28; Status UNV Albumin Human 200 ml @ 200 mls/hr 1X PRN PRN IV Hypotension; Start 08/03/19 at 11:30; Stop 08/03/19 at 17:29; Status DC Sodium Chloride 1,000 ml @ 400 mls/hr Q2H30M PRN IV PATENCY; Start 08/03/19 at 11:29; Stop 08/03/19 at 23:28; Status DC Info (PHARMACY MONITORING -- do not chart) 1 each PRN DAILY PRN MC SEE COMMENTS; Start 08/03/19 at 11:30 Info (PHARMACY MONITORING -- do not chart) 1 each PRN DAILY PRN MC SEE COMMENTS; Start 08/03/19 at 11:30; Stop 08/03/19 at 11:39; Status DC Lidocaine HCl (Buffered Lidocaine 1%) 3 ml 1X ONCE INJ Last administered on 08/03/19at 12:09; Start 08/03/19 at 12:00; Stop 08/03/19 at 12:01; Status DC Sodium Chloride 1,000 ml @ 1,000 mls/hr Q1H PRN IV hypotension; Start 08/04/19 at 09:46; Stop 08/04/19 at 15:45; Status DC Albumin Human 200 ml @ 200 mls/hr 1X PRN PRN IV Hypotension; Start 08/04/19 at 10:00; Stop 08/04/19 at 15:59; Status DC Sodium Chloride (Normal Saline Flush) 10 ml 1X PRN PRN IV AP catheter pack; Start 08/04/19 at 10:00; Stop 08/05/19 at 09:59 Sodium Chloride (Normal Saline Flush) 10 ml 1X PRN PRN IV FIL[employer]IP [employer]OR catheter pack; Start 08/04/19 at 10:00; Stop 08/05/19 at 09:59 Sodium Chloride 1,000 ml @ 400 mls/hr Q2H30M PRN IV PATENCY; Start 08/04/19 at 09:46; Stop 08/04/19 at 21:45; Status DC Info (PHARMACY MONITORING -- do not chart) 1 each PRN DAILY PRN MC SEE COMMENTS; Start 08/04/19 at 10:00; Status UNV Info (PHARMACY MONITORING -- do not chart) 1 each PRN DAILY PRN MC SEE COMMENTS; Start 08/04/19 at 10:00 Cefazolin Sodium (Ancef) 1 gm DAILY IVP Last administered on 08/05/19at 08:34; Start 08/04/19 at 13:00 Active Scripts Active Reported Xarelto (Rivaroxaban) 20 Mg Tablet 20 Mg PO DAILY Lisinopril 20 Mg Tablet 10 Mg PO DAILY Vitals/I & O Vital Sign - Last 24 Hours 08/04/19 08/04/19 08/04/19 08/04/19 15:05 19:37 20:00 23:16 Temp 98.3 99.6 99.0 98.3 99.6 99.0 Pulse 94 102 99 Resp 18 16 16 B/P (MAP) 127/69 (88) 144/70 (94) 154/78 (103) Pulse Ox 94 93 93 O2 Delivery Room Air Room Air Room Air Room Air 08/05/19 08/05/19 03:31 07:55 Temp 99.5 98.7 99.5 98.7 Pulse 91 96 Resp 16 18 B/P (MAP) 127/77 (94) 144/79 (100) Pulse Ox 92 93 O2 Delivery Room Air Intake and Output 08/04/19 08/04/19 08/05/19 15:00 23:00 07:00 Intake Total 0 ml 300 ml 240 ml Output Total 900 ml Balance 0 ml 300 ml -660 ml Nutrition Consultation Dietary Evaluation: Recommendations by RD: Dietary education by RD, Increase Calorie Intake, Protein supplementation Comments: nepro bid REC mvi and vit c per wound protocal Expected Outcomes/Goals: to meet >75% est nutr needs Malnutrition Findings: Food and Nutrition Intake (Mod: <75% est energy req 7days Weight Status: Appropriate BELTRAN SHARMA MD Aug 05, 2019 09:04
--- NOTE | 2019-08-05 09:21 | PDOC ---
Infectious Disease Note Subjective: Subjective Pt says feels better no complaints undergoing dialysis Increase urination Denies pain/F/C/SOA /cough/Chestpain/joint pain Vital Signs: Vital Signs Vital Signs Date Time Temp Pulse Resp B/P (MAP) Pulse Ox O2 Delivery O2 Flow Rate FiO2 08/05/19 07:55 98.7 96 18 144/79 (100) 93 Room Air 98.7 08/04/19 08:00 2.0 Physical Exam: PHYSICAL EXAM GENERAL: Propped up in bed, alert eating HEENT: Pupils equally round. Normal conjunctivae. Oropharynx pink and dry. Poor dentition. NECK: Supple. LUNGS: Diminished aeration, nonlabored. HEART: S1, S2 regular. ABDOMEN: Soft, nontender, bowel sounds with ostomy. midline chronic abdominal wound with n purulence EXTREMITIES: No gross edema or cyanosis. SKIN: Warm to touch without signs of rash. NEUROLOGIC: Alert and answering questions appropriately. Right-sided chest Port-A-Cath without signs of any complications. LT CW HDC in place Medications: Inpatient Meds: Current Medications Medications (Trade) Dose Ordered Sig/Joseph Start Time Stop Time Status Last Admin Dose Admin Acetaminophen (Tylenol) 650 mg PRN Q4HRS PRN 07/30/19 22:30 07/31/19 22:29 DC Albumin Human 200 ml @ 200 mls/hr 1X PRN PRN 08/04/19 10:00 08/04/19 15:59 DC Cefazolin Sodium (Ancef) 1 gm DAILY 08/04/19 13:00 08/05/19 08:34 1 GM Ceftriaxone Sodium (Rocephin) 1 gm 1X ONCE 07/30/19 19:30 07/30/19 19:31 DC 07/30/19 19:35 1 GM Daptomycin 450 mg/ Sodium Chloride 50 ml @ 100 mls/hr Q48H 08/01/19 13:00 08/04/19 12:33 DC 08/03/19 12:43 100 MLS/HR Daptomycin 500 mg/ Sodium Chloride 50 ml @ 100 mls/hr 1X ONCE 07/31/19 17:30 07/31/19 17:59 DC 07/31/19 18:35 100 MLS/HR Heparin Sodium (Porcine) (Heparin Sodium) 5,000 unit Q12HR 08/02/19 21:00 08/04/19 22:01 5,000 UNIT Info (PHARMACY MONITORING -- do not chart) 1 each PRN DAILY PRN 08/04/19 10:00 Levofloxacin/ Dextrose 150 ml @ 100 mls/hr 1X ONCE 07/30/19 22:00 07/30/19 23:29 DC 07/30/19 22:02 100 MLS/HR Lidocaine HCl (Buffered Lidocaine 1%) 3 ml 1X ONCE 08/03/19 12:00 08/03/19 12:01 DC 08/03/19 12:09 5 ML Lisinopril (Prinivil) 10 mg DAILY 08/03/19 09:00 Cancel Non-Formulary Medication (Rivaroxaban (Xarelto)) 20 mg DAILY 08/02/19 17:00 UNV Norepinephrine Bitartrate 8 mg/ Dextrose 258 ml @ 15.383 mls/ hr 1X ONCE 07/30/19 20:30 07/31/19 13:16 DC 07/30/19 20:55 1.875 MLS/HR Ondansetron HCl (Zofran) 4 mg PRN Q8HRS PRN 07/30/19 22:30 07/31/19 22:29 DC Oseltamivir Phosphate (Tamiflu) 30 mg 1X ONCE 07/31/19 15:00 07/31/19 15:01 DC 07/31/19 17:29 30 MG Piperacillin Sod/ Tazobactam Sod (Zosyn Per Pharmacy) 1 each PRN DAILY PRN 07/31/19 10:00 08/03/19 15:03 DC Piperacillin Sod/ Tazobactam Sod 2.25 gm/Sodium Chloride 50 ml @ 100 mls/hr Q8HRS 07/31/19 10:00 08/03/19 09:25 DC 08/03/19 05:52 100 MLS/HR Ringer's Solution 1,000 ml @ 100 mls/hr Q10H 07/31/19 12:30 08/04/19 05:45 100 MLS/HR Sodium Bicarbonate 50 meq/Dextrose 1,050 ml @ 125 mls/hr 1X ONCE 07/30/19 22:30 07/31/19 06:53 DC 07/31/19 00:32 125 MLS/HR Sodium Bicarbonate (Sodium Bicarb Adult 8.4% Syr) 50 meq Q2HR 08/01/19 10:00 08/01/19 12:01 DC 08/01/19 13:03 50 MEQ Sodium Chloride 1,000 ml @ 400 mls/hr Q2H30M PRN 08/04/19 09:46 08/04/19 21:45 DC Sodium Chloride (Normal Saline Flush) 10 ml 1X PRN PRN 08/04/19 10:00 08/05/19 09:59 Vancomycin HCl (Vanco Per Pharmacy) 1 each PRN DAILY PRN 07/30/19 21:30 07/31/19 09:56 DC 07/31/19 05:38 1 EACH Vancomycin HCl (Vancomycin Random Level) 1 each 1X ONCE 08/01/19 22:00 08/01/19 22:01 Cancel Vancomycin HCl 2 gm/Sodium Chloride 500 ml @ 250 mls/hr 1X ONCE 07/30/19 22:00 07/30/19 23:59 DC 07/30/19 21:51 250 MLS/HR Labs: Lab Laboratory Tests Test 08/05/19 03:00 08/05/19 08:20 White Blood Count 14.1 x10^3/uL (4.0-11.0) Red Blood Count 3.90 x10^6/uL (4.30-5.70) Hemoglobin 11.0 g/dL (13.0-17.5) Hematocrit 32.9 % (39.0-53.0) Mean Corpuscular Volume 84 fL (79-100) Mean Corpuscular Hemoglobin 28 pg (25-35) Mean Corpuscular Hemoglobin Concent 33 g/dL (31-37) Red Cell Distribution Width 17.2 % (11.5-14.5) Platelet Count 211 x10^3/uL (140-400) Neutrophils (%) (Auto) 86 % (31-73) Lymphocytes (%) (Auto) 5 % (24-48) Monocytes (%) (Auto) 8 % (0-9) Eosinophils (%) (Auto) 1 % (0-3) Basophils (%) (Auto) 0 % (0-3) Neutrophils # (Auto) 12.2 x10^3/uL (1.8-7.7) Lymphocytes # (Auto) 0.7 x10^3/uL (1.0-4.8) Monocytes # (Auto) 1.1 x10^3/uL (0.0-1.1) Eosinophils # (Auto) 0.1 x10^3/uL (0.0-0.7) Basophils # (Auto) 0.0 x10^3/uL (0.0-0.2) Sodium Level 142 mmol/L (136-145) Potassium Level 4.2 mmol/L (3.5-5.1) Chloride Level 102 mmol/L (98-107) Carbon Dioxide Level 26 mmol/L (21-32) Anion Gap 14 (6-14) Blood Urea Nitrogen 65 mg/dL (8-26) Creatinine 7.3 mg/dL (0.7-1.3) Estimated GFR (Cockcroft-Gault) 7.5 Glucose Level 111 mg/dL (70-99) Calcium Level 9.0 mg/dL (8.5-10.1) Phosphorus Level 6.8 mg/dL (2.6-4.7) Albumin 2.7 g/dL (3.4-5.0) Prothrombin Time 15.9 SEC (11.7-14.0) Prothromb Time International Ratio 1.3 (0.8-1.1) Activated Partial Thromboplast Time 30 SEC (24-38) Urine Random Creatinine 134.6 mg/dL (Not Establ.) Urine Random Total Protein < 6.0 mg/dL (Not Establ.) Micro RUN DATE: 08/04/19 [facility] *LIVE* PAGE 1 RUN TIME: 717 Specimen Inquiry PATIENT: KELLY DONOVAN ACCT: [id number] LOC: 6 [facility] U: [id number] AGE/SX: 64/M ROOM: 658 RE07/30/[address]: DWAYNE TIDWELL MD : 1955 BED: 1 DIS: STATUS: ADM IN TLOC: ----- ------- SPEC #: [id number] MAGEN: 07/30/19 STATUS: COMP REQ #: [id number] RECD: 07/30/19-[address]: RIYA MALLORY MD SOURCE: BLOOD ENTR: 07/31/19-[address] [place] [address] DR: TOAN HERNANDEZ SPDESC: ORDERED: BLD CULT - LC Procedure Result BLOOD CULTURE LC Final Final report BLD CULT RESULT 1 Final Staphylococcus aureus Based on susceptibility to oxacillin this isolate would be susceptible to: *Penicillinase-stable penicillins, such as: Cloxacillin, Dicloxacillin, Nafcillin *Beta-lactam combination agents, such as: Amoxicillin-clavulanic acid, Ampicillin-sulbactam, Piperacillin-tazobactam *Oral cephems, such as: Cefaclor, Cefdinir, Cefpodoxime, Cefprozil, Cefuroxime, Cephalexin, Loracarbef *Parenteral cephems, such as: Cefazolin, Cefepime, Cefotaxime, Cefotetan, Ceftaroline, Ceftizoxime, Ceftriaxone, Cefuroxime *Carbapenems, such as: Doripenem, Ertapenem, Imipenem, Meropenem CLINDAMYCIN <=0.25 =S ERYTHROMYCIN <=0.25 =S Performed at: DA - [facility] [address], [place] [id number] Clothes Ironer: ALEXANDRA Carrillo MD, Phone: [phone] ANTIMICROBIAL SUSCEPTIBILITY Final S = Susceptible; I = Intermediate; R = Resistant P = Positive; N = Negative MICS are expressed in micrograms per mL Antibiotic RSLT#1 RSLT#2 RSLT#3 RSLT#4 Ciprofloxacin S<=0.5 Gentamicin S<=0.5 Levofloxacin S =0.25 Linezolid S =4 Moxifloxacin S<=0.25 Nitrofurantoin S<=16 Oxacillin S =0.5 Penicillin R>=0.5 Quinupristin/Dalfopristin S<=0.25 Rifampin S<=0.5 Tetracycline S<=1 CONTINUED ON NEXT PAGE RUN DATE: 08/04/19 [facility] *LIVE* PAGE 2 RUN TIME: 0718 Specimen Inquiry SPEC: [id number] PATIENT: KELLY DONOVAN [id number] (Continued) Procedure Result ANTIMICROBIAL SUSCEPTIBILITY Final (continued) Trimethoprim/Sulfa S<=10 Vancomycin S =1 Min Inhibitory Conc (1 Drug) Final report Result 1 Staphylococcus aureus DAPTOMYCIN 1.0 = S Objective: Assessment: Septic shock, POA off pressors from Staph aureus sepsis Methicillin sensitive Staph aureus bacteremia 07/30 and 2/1 source unclear ,infected chronic abdo wound vs ba cath ( 2014) Influenza B Hypothermia - improved THAD Colon cancer undergoing chemo at [facility]. Port-a-cath in place. 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 Clarke at [facility] Plan: Plan of Care cont cefazolin 08/04, was on daptomycin prior,will need renal dosing Tamiflu, renal dosing, times one dose 07/31 awaiting Ba cath removal, send cath tip for cults Will need removal of infected mesh,pt wants to hold off for now; He f/u with DR Clarke AT [facility] Risk of recurrence discussed with potential for metastatic complications despite adequate antibiotic therapy Monitor labs and cults f/u Portacath bc from 08/02,neg so far Local wound care per wound team Droplet precautions D/w nursing ARMINDA HENNESSY MD Aug 05, 2019 09:21
--- NOTE | 2019-08-05 09:58 | NUR ---
SS following up with discharge planning. [facility] Admissions contacted SS and gave tentative chair time of , , and Friday at [facility]. [facility] reported that they would contact SS when confirmed. PT/OT recommended long-term unit. SS met with pt and pt agreeable to rehabilitation at facility when ready for discharge. Pt agreeable to [facility], ; fax [phone]. SS was notified from [facility] that pt's insurance does not have skilled benefits. SS discussed with physician and LTAC was recommended. SS phoned and faxed referral to [facility], ; fax [phone]. SS awaiting acceptance decision and insurance determination and will proceed accordingly with discharge planning.
--- NOTE | 2019-08-05 10:48 | PDOC ---
PROGRESS NOTES Subjective Subjective HPI - f/u of Stage 4 colon cancer ROS - no fever Objective Objective Vital Signs Date Time Temp Pulse Resp B/P (MAP) Pulse Ox O2 Delivery O2 Flow Rate FiO2 08/05/19 08:15 Room Air 2.0 08/05/19 07:55 98.7 96 18 144/79 (100) 93 98.7 Intake and Output 08/05/19 07:00 Intake Total 540 ml Output Total 900 ml Balance -360 ml Intake Oral 540 ml Output Urine Total 250 ml Stool Total 650 ml # Bowel Movements 1 Physical Exam General: No acute distress Neck: No JVD Assessment Assessment Problems Medical Problems: (1) Acute renal failure Status: Acute (2) Influenza Status: Acute (3) Pneumonia Status: Acute (4) Septic shock Status: Acute IMPRESSION AND PLAN: 1. Stage 4 colon cancer with predominantly omental metastasis and positive KRAS mutation diagnosed in 12/2014. He is currently on chemotherapy with FOLFIRI under the direction of Dr. Thang Haji. He is now admitted with septic shock from Staph aureus sepsis. ID is on board managing antibiotics. I have advised him to follow up with Dr. Thang Haji upon discharge. 2. Influenza B. Continue management per ID. 3. Septic shock, improving. 4. Acute renal failure due to septic shock. Appreciate Nephrology consultation. On dialysis. Comment Review of Relevant I have reviewed the following items renetta (where applicable) has been applied. Labs Laboratory Tests Test 08/04/19 03:30 08/05/19 03:00 08/05/19 08:20 Sodium Level 144 mmol/L (136-145) 142 mmol/L (136-145) Potassium Level 3.9 mmol/L (3.5-5.1) 4.2 mmol/L (3.5-5.1) Chloride Level 97 mmol/L (98-107) 102 mmol/L (98-107) Carbon Dioxide Level 24 mmol/L (21-32) 26 mmol/L (21-32) Anion Gap 23 (6-14) 14 (6-14) Blood Urea Nitrogen 104 mg/dL (8-26) 65 mg/dL (8-26) Creatinine 10.6 mg/dL (0.7-1.3) 7.3 mg/dL (0.7-1.3) Estimated GFR (Cockcroft-Gault) 4.9 7.5 Glucose Level 91 mg/dL (70-99) 111 mg/dL (70-99) Calcium Level 8.7 mg/dL (8.5-10.1) 9.0 mg/dL (8.5-10.1) Phosphorus Level 8.4 mg/dL (2.6-4.7) 6.8 mg/dL (2.6-4.7) Albumin 2.6 g/dL (3.4-5.0) 2.7 g/dL (3.4-5.0) Hepatitis B Core Total Antibody Nonreactive (Nonreactive) White Blood Count 14.1 x10^3/uL (4.0-11.0) Red Blood Count 3.90 x10^6/uL (4.30-5.70) Hemoglobin 11.0 g/dL (13.0-17.5) Hematocrit 32.9 % (39.0-53.0) Mean Corpuscular Volume 84 fL (79-100) Mean Corpuscular Hemoglobin 28 pg (25-35) Mean Corpuscular Hemoglobin Concent 33 g/dL (31-37) Red Cell Distribution Width 17.2 % (11.5-14.5) Platelet Count 211 x10^3/uL (140-400) Neutrophils (%) (Auto) 86 % (31-73) Lymphocytes (%) (Auto) 5 % (24-48) Monocytes (%) (Auto) 8 % (0-9) Eosinophils (%) (Auto) 1 % (0-3) Basophils (%) (Auto) 0 % (0-3) Neutrophils # (Auto) 12.2 x10^3/uL (1.8-7.7) Lymphocytes # (Auto) 0.7 x10^3/uL (1.0-4.8) Monocytes # (Auto) 1.1 x10^3/uL (0.0-1.1) Eosinophils # (Auto) 0.1 x10^3/uL (0.0-0.7) Basophils # (Auto) 0.0 x10^3/uL (0.0-0.2) Prothrombin Time 15.9 SEC (11.7-14.0) Prothromb Time International Ratio 1.3 (0.8-1.1) Activated Partial Thromboplast Time 30 SEC (24-38) Urine Random Creatinine 134.6 mg/dL (Not Establ.) Urine Random Total Protein < 6.0 mg/dL (Not Establ.) Laboratory Tests Test 08/05/19 03:00 08/05/19 08:20 White Blood Count 14.1 x10^3/uL (4.0-11.0) Red Blood Count 3.90 x10^6/uL (4.30-5.70) Hemoglobin 11.0 g/dL (13.0-17.5) Hematocrit 32.9 % (39.0-53.0) Mean Corpuscular Volume 84 fL (79-100) Mean Corpuscular Hemoglobin 28 pg (25-35) Mean Corpuscular Hemoglobin Concent 33 g/dL (31-37) Red Cell Distribution Width 17.2 % (11.5-14.5) Platelet Count 211 x10^3/uL (140-400) Neutrophils (%) (Auto) 86 % (31-73) Lymphocytes (%) (Auto) 5 % (24-48) Monocytes (%) (Auto) 8 % (0-9) Eosinophils (%) (Auto) 1 % (0-3) Basophils (%) (Auto) 0 % (0-3) Neutrophils # (Auto) 12.2 x10^3/uL (1.8-7.7) Lymphocytes # (Auto) 0.7 x10^3/uL (1.0-4.8) Monocytes # (Auto) 1.1 x10^3/uL (0.0-1.1) Eosinophils # (Auto) 0.1 x10^3/uL (0.0-0.7) Basophils # (Auto) 0.0 x10^3/uL (0.0-0.2) Sodium Level 142 mmol/L (136-145) Potassium Level 4.2 mmol/L (3.5-5.1) Chloride Level 102 mmol/L (98-107) Carbon Dioxide Level 26 mmol/L (21-32) Anion Gap 14 (6-14) Blood Urea Nitrogen 65 mg/dL (8-26) Creatinine 7.3 mg/dL (0.7-1.3) Estimated GFR (Cockcroft-Gault) 7.5 Glucose Level 111 mg/dL (70-99) Calcium Level 9.0 mg/dL (8.5-10.1) Phosphorus Level 6.8 mg/dL (2.6-4.7) Albumin 2.7 g/dL (3.4-5.0) Prothrombin Time 15.9 SEC (11.7-14.0) Prothromb Time International Ratio 1.3 (0.8-1.1) Activated Partial Thromboplast Time 30 SEC (24-38) Urine Random Creatinine 134.6 mg/dL (Not Establ.) Urine Random Total Protein < 6.0 mg/dL (Not Establ.) Microbiology 08/02/19 Blood Culture - Preliminary, Resulted NO GROWTH AFTER 2 DAYS Medications Current Medications Ceftriaxone Sodium (Rocephin) 1 gm 1X ONCE IVP Last administered on 07/30/19at 19:35; Start 07/30/19 at 19:30; Stop 07/30/19 at 19:31; Status DC Sodium Chloride 1,000 ml @ 1,000 mls/hr 1X ONCE IV Last administered on 07/30/19at 19:31; Start 07/30/19 at 19:30; Stop 07/30/19 at 20:29; Status DC Ondansetron HCl (Zofran) 4 mg 1X ONCE IVP Last administered on 07/30/19at 19:34; Start 07/30/19 at 19:30; Stop 07/30/19 at 19:31; Status DC Norepinephrine Bitartrate 8 mg/ Dextrose 258 ml @ 15.383 mls/ hr 1X ONCE IV Last administered on 07/30/19at 20:55; Start 07/30/19 at 20:30; Stop 07/31/19 at 13:16; Status DC Sodium Chloride 2,190 ml @ 2,190 mls/hr Q1H IV Last administered on 07/30/19at 21:39; Start 07/30/19 at 21:30; Stop 07/30/19 at 21:40; Status DC Vancomycin HCl (Vanco Per Pharmacy) 1 each PRN DAILY PRN MC SEE COMMENTS Last administered on 07/31/19at 05:38; Start 07/30/19 at 21:30; Stop 07/31/19 at 09:56; Status DC Levofloxacin/ Dextrose 150 ml @ 100 mls/hr 1X ONCE IV Last administered on 07/30/19at 22:02; Start 07/30/19 at 22:00; Stop 07/30/19 at 23:29; Status DC Sodium Chloride 1,000 ml @ 1,000 mls/hr Q1H IV Last administered on 07/30/19at 22:30; Start 07/30/19 at 21:40; Stop 07/30/19 at 23:28; Status DC Vancomycin HCl 2 gm/Sodium Chloride 500 ml @ 250 mls/hr 1X ONCE IV Last administered on 07/30/19at 21:51; Start 07/30/19 at 22:00; Stop 07/30/19 at 23:59; Status DC Sodium Bicarbonate 50 meq/Dextrose 1,050 ml @ 125 mls/hr 1X ONCE IV Last administered on 07/31/19at 00:32; Start 07/30/19 at 22:30; Stop 07/31/19 at 06:53; Status DC Ondansetron HCl (Zofran) 4 mg PRN Q8HRS PRN IV NAUSEA/VOMITING 1ST CHOICE; Start 07/30/19 at 22:30; Stop 07/31/19 at 22:29; Status DC Acetaminophen (Tylenol) 650 mg PRN Q4HRS PRN PO FEVER; Start 07/30/19 at 22:30; Stop 07/31/19 at 22:29; Status DC Vancomycin HCl (Vancomycin Random Level) 1 each 1X ONCE MC ; Start 08/01/19 at 22:00; Stop 08/01/19 at 22:01; Status Cancel Piperacillin Sod/ Tazobactam Sod (Zosyn Per Pharmacy) 1 each PRN DAILY PRN MC SEE COMMENTS; Start 07/31/19 at 10:00; Stop 08/03/19 at 15:03; Status DC Piperacillin Sod/ Tazobactam Sod 2.25 gm/Sodium Chloride 50 ml @ 100 mls/hr Q8HRS IV Last administered on 08/03/19at 05:52; Start 07/31/19 at 10:00; Stop 08/03/19 at 09:25; Status DC Ringer's Solution 1,000 ml @ 100 mls/hr Q10H IV Last administered on 08/04/19at 05:45; Start 07/31/19 at 12:30 Sodium Chloride 500 ml @ 0 mls/hr QID PRN IV UO< 30cc/hr over previous 6hrs Last administered on 08/01/19at 10:16; Start 07/31/19 at 12:30 Oseltamivir Phosphate (Tamiflu) 30 mg DAILY PO ; Start 07/31/19 at 15:00; Stop 08/04/19 at 09:01; Status Cancel Oseltamivir Phosphate (Tamiflu) 30 mg 1X ONCE PO Last administered on 07/31/19at 17:29; Start 07/31/19 at 15:00; Stop 07/31/19 at 15:01; Status DC Daptomycin 500 mg/ Sodium Chloride 50 ml @ 100 mls/hr 1X ONCE IV Last administered on 07/31/19at 18:35; Start 07/31/19 at 17:30; Stop 07/31/19 at 17:59; Status DC Sodium Bicarbonate (Sodium Bicarb Adult 8.4% Syr) 50 meq Q2HR IV Last administered on 08/01/19at 13:03; Start 08/01/19 at 10:00; Stop 08/01/19 at 12:01; Status DC Albumin Human 100 ml @ 100 mls/hr TID IV Last administered on 08/02/19at 20:23; Start 08/01/19 at 09:30; Stop 08/02/19 at 21:59; Status DC Daptomycin 450 mg/ Sodium Chloride 50 ml @ 100 mls/hr Q48H IV Last administered on 08/03/19at 12:43; Start 08/01/19 at 13:00; Stop 08/04/19 at 12:33; Status DC Lisinopril (Prinivil) 10 mg DAILY PO ; Start 08/03/19 at 09:00; Status Cancel Non-Formulary Medication (Rivaroxaban (Xarelto)) 20 mg DAILY PO ; Start 08/02/19 at 17:00; Status UNV Heparin Sodium (Porcine) (Heparin Sodium) 5,000 unit Q12HR SQ Last administered on 08/04/19at 22:01; Start 08/02/19 at 21:00 Lidocaine HCl (Buffered Lidocaine 1%) 3 ml STK-MED ONCE .ROUTE ; Start 08/03/19 at 10:59; Stop 08/03/19 at 10:59; Status DC Sodium Chloride 1,000 ml @ 1,000 mls/hr Q1H PRN IV hypotension; Start 08/03/19 at 11:29; Stop 08/03/19 at 17:28; Status UNV Albumin Human 200 ml @ 200 mls/hr 1X PRN PRN IV Hypotension; Start 08/03/19 at 11:30; Stop 08/03/19 at 17:29; Status DC Sodium Chloride 1,000 ml @ 400 mls/hr Q2H30M PRN IV PATENCY; Start 08/03/19 at 11:29; Stop 08/03/19 at 23:28; Status DC Info (PHARMACY MONITORING -- do not chart) 1 each PRN DAILY PRN MC SEE COMMENTS; Start 08/03/19 at 11:30 Info (PHARMACY MONITORING -- do not chart) 1 each PRN DAILY PRN MC SEE C OMMENTS; Start 08/03/19 at 11:30; Stop 08/03/19 at 11:39; Status DC Lidocaine HCl (Buffered Lidocaine 1%) 3 ml 1X ONCE INJ Last administered on 08/03/19at 12:09; Start 08/03/19 at 12:00; Stop 08/03/19 at 12:01; Status DC Sodium Chloride 1,000 ml @ 1,000 mls/hr Q1H PRN IV hypotension; Start 08/04/19 at 09:46; Stop 08/04/19 at 15:45; Status DC Albumin Human 200 ml @ 200 mls/hr 1X PRN PRN IV Hypotension; Start 08/04/19 at 10:00; Stop 08/04/19 at 15:59; Status DC Sodium Chloride (Normal Saline Flush) 10 ml 1X PRN PRN IV AP catheter pack; Start 08/04/19 at 10:00; Stop 08/05/19 at 09:59; Status DC Sodium Chloride (Normal Saline Flush) 10 ml 1X PRN PRN IV IT APPLICATIONS ANALYST catheter pack; Start 08/04/19 at 10:00; Stop 08/05/19 at 09:59; Status DC Sodium Chloride 1,000 ml @ 400 mls/hr Q2H30M PRN IV PATENCY; Start 08/04/19 at 09:46; Stop 08/04/19 at 21:45; Status DC Info (PHARMACY MONITORING -- do not chart) 1 each PRN DAILY PRN MC SEE COMMENTS; Start 08/04/19 at 10:00; Status UNV Info (PHARMACY MONITORING -- do not chart) 1 each PRN DAILY PRN MC SEE COMMENTS; Start 08/04/19 at 10:00 Cefazolin Sodium (Ancef) 1 gm DAILY IVP Last administered on 08/05/19at 08:34; Start 08/04/19 at 13:00 Active Scripts Active Reported Xarelto (Rivaroxaban) 20 Mg Tablet 20 Mg PO DAILY Lisinopril 20 Mg Tablet 10 Mg PO DAILY Vitals/I & O Vital Sign - Last 24 Hours 08/04/19 08/04/19 08/04/19 08/04/19 15:05 19:37 20:00 23:16 Temp 98.3 99.6 99.0 98.3 99.6 99.0 Pulse 94 102 99 Resp 18 16 16 B/P (MAP) 127/69 (88) 144/70 (94) 154/78 (103) Pulse Ox 94 93 93 O2 Delivery Room Air Room Air Room Air Room Air 08/05/19 08/05/19 08/05/19 03:31 07:55 08:15 Temp 99.5 98.7 99.5 98.7 Pulse 91 96 Resp 16 18 B/P (MAP) 127/77 (94) 144/79 (100) Pulse Ox 92 93 O2 Delivery Room Air Room Air O2 Flow Rate 2.0 Intake and Output 08/04/19 08/04/19 08/05/19 15:00 23:00 07:00 Intake Total 0 ml 300 ml 240 ml Output Total 900 ml Balance 0 ml 300 ml -660 ml Nutrition Consultation Dietary Evaluation: Recommendations by RD: Dietary education by RD, Increase Calorie Intake, Protein supplementation Comments: provided diet edcuation to pt on renal HD diet magic cup bid REC mvi and vit c per wound protocal Expected Outcomes/Goals: to meet >75% est nutr needs- goal ongoing Malnutrition Findings: Food and Nutrition Intake (Mod: <75% est energy req 7days Weight Status: Appropriate LAWRENCE CARROLL MD Aug 05, 2019 10:48
--- NOTE | 2019-08-05 11:15 | PDOC ---
SUBJECTIVE ROS Pt denies any complaints OBJECTIVE Vital Signs Vital Signs Date Time Temp Pulse Resp B/P (MAP) Pulse Ox O2 Delivery O2 Flow Rate FiO2 08/05/19 08:15 Room Air 2.0 08/05/19 07:55 98.7 96 18 144/79 (100) 93 98.7 I & 0 Intake and Output 08/05/19 07:00 Intake Total 540 ml Output Total 900 ml Balance -360 ml Intake Oral 540 ml Output Urine Total 250 ml Stool Total 650 ml # Bowel Movements 1 PHYSICAL EXAM Physical Exam GENERAL: NAD HEENT: Pupils equally round. Normal conjunctivae. Oropharynx dry. NECK: Supple. LUNGS: Diminished at bases , nonlabored. HEART: S1, S2 regular. ABDOMEN: Soft, nontender, ostomy +. Midline abdominal wound scabbed EXTREMITIES: No gross edema or cyanosis. SKIN: Warm to touch without signs of rash. NEUROLOGIC: Alert and answering questions appropriately, / Mild tremores- ? Chronic Right-sided chest Port-A-Cath DIAGNOSIS/ASSESSMENT Assessment & Plan Acute kidney injury:Suspect ATN No focal abnormality seen in the kidneys or bladder on US , Normal Cr in 2018 ,Required HD in 2014 x 2 , Initiate Dialysis 08/03, no indication for HD today, schedule for tomorrow ( 3rd treatment), if no renal recovery Access- Temp HDC Records reviewed from - there are no labs available , No Dx of THAD or CKD mentioned in the notes from [facility] I/O, monitor for renal recovery HyperUricemia- Uric acid was 15 on 08/03, Elevated Phos - Defer to Oncology Initiated on HD Severe intravascular volume depletion: recd IV fluids , no improvement in renal function based on labs on 08/01 Hypocalcemia: Corrects for severe hypoalbuminemia HyperPhosphatemia- suspect sec to THAD , improving with HD Hypoalbuminemia: Presumably associated with metastatic disease to the liver Micr hematuria (Non [place] sample) -will Check Pr/Cr needs further Eval if new onset , recommend Urology Possible sepsis: (G positive bacteremia is noted )Antibiotics per infectious disease physicians. Hx of infected abdominal hernia mesh associated with Prevotella bivia, history of scrotal abscess with yeast and Bacteroides Colon cancer undergoing chemotherapy at [facility]- Defer to Hem/onc history of urinary tract infections Chronic abdominal wound for which he is followed by Dr. Clarke at [facility] every 3 weeks. Anemia: Hemoglobin dropped from 14.5-11.7 suspect this is due to intravascular volume depletion at presentation and rehydration COMMENT/RELEVANT DATA Meds Current Medications Medications (Trade) Dose Ordered Sig/Joseph Start Time Stop Time Status Last Admin Dose Admin Acetaminophen (Tylenol) 650 mg PRN Q4HRS PRN 07/30/19 22:30 07/31/19 22:29 DC Albumin Human 200 ml @ 200 mls/hr 1X PRN PRN 08/04/19 10:00 08/04/19 15:59 DC Cefazolin Sodium (Ancef) 1 gm DAILY 08/04/19 13:00 08/05/19 08:34 1 GM Ceftriaxone Sodium (Rocephin) 1 gm 1X ONCE 07/30/19 19:30 07/30/19 19:31 DC 07/30/19 19:35 1 GM Daptomycin 450 mg/ Sodium Chloride 50 ml @ 100 mls/hr Q48H 08/01/19 13:00 08/04/19 12:33 DC 08/03/19 12:43 100 MLS/HR Daptomycin 500 mg/ Sodium Chloride 50 ml @ 100 mls/hr 1X ONCE 07/31/19 17:30 07/31/19 17:59 DC 07/31/19 18:35 100 MLS/HR Heparin Sodium (Porcine) (Heparin Sodium) 5,000 unit Q12HR 08/02/19 21:00 08/04/19 22:01 5,000 UNIT Info (PHARMACY MONITORING -- do not chart) 1 each PRN DAILY PRN 08/04/19 10:00 Levofloxacin/ Dextrose 150 ml @ 100 mls/hr 1X ONCE 07/30/19 22:00 07/30/19 23:29 DC 07/30/19 22:02 100 MLS/HR Lidocaine HCl (Buffered Lidocaine 1%) 3 ml 1X ONCE 08/03/19 12:00 08/03/19 12:01 DC 08/03/19 12:09 5 ML Lisinopril (Prinivil) 10 mg DAILY 08/03/19 09:00 Cancel Non-Formulary Medication (Rivaroxaban (Xarelto)) 20 mg DAILY 08/02/19 17:00 UNV Norepinephrine Bitartrate 8 mg/ Dextrose 258 ml @ 15.383 mls/ hr 1X ONCE 07/30/19 20:30 07/31/19 13:16 DC 07/30/19 20:55 1.875 MLS/HR Ondansetron HCl (Zofran) 4 mg PRN Q8HRS PRN 07/30/19 22:30 07/31/19 22:29 DC Oseltamivir Phosphate (Tamiflu) 30 mg 1X ONCE 07/31/19 15:00 07/31/19 15:01 DC 07/31/19 17:29 30 MG Piperacillin Sod/ Tazobactam Sod (Zosyn Per Pharmacy) 1 each PRN DAILY PRN 07/31/19 10:00 08/03/19 15:03 DC Piperacillin Sod/ Tazobactam Sod 2.25 gm/Sodium Chloride 50 ml @ 100 mls/hr Q8HRS 07/31/19 10:00 08/03/19 09:25 DC 08/03/19 05:52 100 MLS/HR Ringer's Solution 1,000 ml @ 100 mls/hr Q10H 07/31/19 12:30 08/04/19 05:45 100 MLS/HR Sodium Bicarbonate 50 meq/Dextrose 1,050 ml @ 125 mls/hr 1X ONCE 07/30/19 22:30 07/31/19 06:53 DC 07/31/19 00:32 125 MLS/HR Sodium Bicarbonate (Sodium Bicarb Adult 8.4% Syr) 50 meq Q2HR 08/01/19 10:00 08/01/19 12:01 DC 08/01/19 13:03 50 MEQ Sodium Chloride 1,000 ml @ 400 mls/hr Q2H30M PRN 08/04/19 09:46 08/04/19 21:45 DC Sodium Chloride (Normal Saline Flush) 10 ml 1X PRN PRN 08/04/19 10:00 08/05/19 09:59 DC Vancomycin HCl (Vanco Per Pharmacy) 1 each PRN DAILY PRN 07/30/19 21:30 07/31/19 09:56 DC 07/31/19 05:38 1 EACH Vancomycin HCl (Vancomycin Random Level) 1 each 1X ONCE 08/01/19 22:00 08/01/19 22:01 Cancel Vancomycin HCl 2 gm/Sodium Chloride 500 ml @ 250 mls/hr 1X ONCE 07/30/19 22:00 07/30/19 23:59 DC 07/30/19 21:51 250 MLS/HR Lab Laboratory Tests Test 08/05/19 03:00 08/05/19 08:20 White Blood Count 14.1 x10^3/uL (4.0-11.0) Red Blood Count 3.90 x10^6/uL (4.30-5.70) Hemoglobin 11.0 g/dL (13.0-17.5) Hematocrit 32.9 % (39.0-53.0) Mean Corpuscular Volume 84 fL (79-100) Mean Corpuscular Hemoglobin 28 pg (25-35) Mean Corpuscular Hemoglobin Concent 33 g/dL (31-37) Red Cell Distribution Width 17.2 % (11.5-14.5) Platelet Count 211 x10^3/uL (140-400) Neutrophils (%) (Auto) 86 % (31-73) Lymphocytes (%) (Auto) 5 % (24-48) Monocytes (%) (Auto) 8 % (0-9) Eosinophils (%) (Auto) 1 % (0-3) Basophils (%) (Auto) 0 % (0-3) Neutrophils # (Auto) 12.2 x10^3/uL (1.8-7.7) Lymphocytes # (Auto) 0.7 x10^3/uL (1.0-4.8) Monocytes # (Auto) 1.1 x10^3/uL (0.0-1.1) Eosinophils # (Auto) 0.1 x10^3/uL (0.0-0.7) Basophils # (Auto) 0.0 x10^3/uL (0.0-0.2) Sodium Level 142 mmol/L (136-145) Potassium Level 4.2 mmol/L (3.5-5.1) Chloride Level 102 mmol/L (98-107) Carbon Dioxide Level 26 mmol/L (21-32) Anion Gap 14 (6-14) Blood Urea Nitrogen 65 mg/dL (8-26) Creatinine 7.3 mg/dL (0.7-1.3) Estimated GFR (Cockcroft-Gault) 7.5 Glucose Level 111 mg/dL (70-99) Calcium Level 9.0 mg/dL (8.5-10.1) Phosphorus Level 6.8 mg/dL (2.6-4.7) Albumin 2.7 g/dL (3.4-5.0) Prothrombin Time 15.9 SEC (11.7-14.0) Prothromb Time International Ratio 1.3 (0.8-1.1) Activated Partial Thromboplast Time 30 SEC (24-38) Urine Random Creatinine 134.6 mg/dL (Not Establ.) Urine Random Total Protein < 6.0 mg/dL (Not Establ.) Results All relevant outside records, renal labs, imaging studies, telemetry/EKG's were reviewed. JE RIBEIRO MD Aug 05, 2019 11:15
[2019-08-05 11:56] VITALS: BP 157/72
[2019-08-05] MEDS ORDERED: LIDOCAINE 1%/EPI 1:100,000 20 ML VIAL. ONE (12:04)
[2019-08-05] MEDS ORDERED: LIDOCAINE 1%/EPI 1:100,000 20 ML VIAL. SQ ONE (12:45)
--- NOTE | 2019-08-05 13:05 | RAD ---
08/05/2019 11:00 AM Removal of right internal jugular PowerPort Indication: Possible port infection. Discussion: The risks and benefits of the procedure were discussed the patient. Informed consent was obtained. A timeout procedure was performed. The right chest overlying the port reservoir was prepped and draped using maximum sterile barrier technique. All elements of maximal sterile barrier technique including the use of a cap, mask, sterile gown, sterile gloves, large sterile sheet, appropriate hand hygiene, and 2% chlorhexidine for cutaneous antisepsis (or acceptable alternative antiseptic per current guidelines) were followed for this procedure. 1% lidocaine was administered for local anesthesia. Small incision was made overlying the reservoir. The port and catheter were removed intact, with fluoroscopic guidance to ensure complete removal, and sent for culture. There was inspected and found to be clean without overt evidence of pocket infection. The wound was therefore closed in layers using 4-0 Vicryl suture. No immediate complications were identified. No sedation Total fluoroscopy time: 0.01 min Dose area product: 1 Gycm2 Impression: Removal of right internal jugular PowerPort
--- NOTE | 2019-08-05 15:22 | NUR ---
SS following for discharge planning. Pt accepted at [facility], ; fax [phone], pending insurance authorization. SS will continue to follow for discharge planning.
[2019-08-05 15:23] VITALS: BP 157/81
[2019-08-05 19:30] VITALS: BP 150/80
[2019-08-05 23:30] VITALS: BP 145/78
[2019-08-06 03:30] VITALS: BP 153/86
--- NOTE | 2019-08-06 03:33 | NUR ---
Dr. Silverio paged regarding beat run of Vtach. Orders received for lab draw and cardiology consult. Patient asymptomatic at this time. No complaints. Will continue to monitor.
[2019-08-06 07:15] VITALS: BP 169/86
--- NOTE | 2019-08-06 08:07 | PDOC2 ---
JUSTYN BROTHERS PROPERTY MAINTENANCE SUPERVISOR 08/06/19 0807: CARDIAC CONSULT DATE OF CONSULT Date of Consult DATE: 08/06/19 TIME: 08:06 REASON FOR CONSULT Reason for Consult: nsvt REFERRING PHYSICIAN Referring Physician: jah SOURCE Source: Chart review, Patient HISTORY OF PRESENT ILLNESS HISTORY OF PRESENT ILLNESS This is a pleasant 64 yo male admitted for complains of weakness and throwing up. Reports that prior to hospitalization he has been having vomiting spells, has been getting increasingly weak and has been having cough and diarrhea. He takes lisinopril for HTN and does not have any cardiac history. He has colon CA being treated with chemotherapy with also prior bowel resection. Upon admission he was noted with severe THAD prompting start of HD and also noted with sepsis with bacteremia prompting removal of portacath. His BP is currently stable. Denies any CP or SOA and feels a little better. Further review of his rhythm revealed brief NSVT and intermittent episode of likely atrial flutter otherwise alternating SR/ST. No passing out and no known cardiac workup in the past. PAST MEDICAL HISTORY Cardiovascular: HTN Pulmonary: Other (pulmonary mets) CENTRAL NERVOUS SYSTEM: Other GI: Other (colon CA) Heme/Onc: Cancer (colon), Other (chemotherapy) Hepatobiliary: Cholelithiasis, Other (hepatic mets) Psych: No pertinent hx Musculoskeletal: Osteoarthritis Rheumatologic: No pertinent hx Infectious disease: No pertinent hx ENT: No pertinent hx Renal/: UTI, Other (scrotal abscess) Endocrine: No pertinent hx Dermatology: No pertinent hx PAST SURGICAL HISTORY Past Surgical History: Hernia Repair (with mesh) FAMILY HISTORY Family History: Adopted SOCIAL HISTORY Smoke: No ALCOHOL: none Drugs: None Lives: Alone CURRENT MEDICATIONS CURRENT MEDICATIONS Current Medications Medications (Trade) Dose Ordered Sig/Joseph Route PRN Reason Start Time Stop Time Status Last Admin Dose Admin Lidocaine/ Epinephrine (LIDOCAINE 1%-EPI 1:100,000 Multi-Dose) 20 ml 1X ONCE SQ 08/05/19 12:45 08/05/19 12:46 DC 08/05/19 12:41 ALLERGIES ALLERGIES: Coded Allergies: No Known Drug Allergies (Unverified , 10/08/18) ROS Review of System 14 point ROS evaluated with pertinent positives noted per HPI PHYSICAL EXAM General: Alert, Oriented X3, Cooperative, No acute distress HEENT: Atraumatic, Mucous membr. moist/pink Lungs: Clear to auscultation, Normal air movement Heart: Regular rate (SR), Normal S1, Normal S2, No murmurs Abdomen: Soft, No tenderness Extremities: No cyanosis, No edema Skin: No breakdown, No significant lesion Neuro: Normal speech, Sensation intact Psych/Mental Status: Mental status NL, Mood NL MUSCULOSKELETAL: Osteoarthritic changes both hands VITALS/I&O VITALS/I&O: Vital Signs Date Time Temp Pulse Resp B/P (MAP) Pulse Ox O2 Delivery O2 Flow Rate FiO2 08/06/19 03:30 98.4 102 17 153/86 (108) 94 Room Air 98.4 08/05/19 08:15 2.0 I & O 08/05/19 08/05/19 08/06/19 15:00 23:00 07:00 Intake Total 0 ml 200 ml 300 ml Output Total 400 ml Balance 0 ml 200 ml -100 ml LABS Lab: Laboratory Tests Test 08/05/19 08:20 Prothrombin Time 15.9 SEC (11.7-14.0) H Prothrombin Time INR 1.3 (0.8-1.1) H Activated Partial Thromboplast Time 30 SEC (24-38) Urine Random Creatinine 134.6 mg/dL (Not Establ.) Urine Random Total Protein < 6.0 mg/dL (Not Establ.) IMAGES IMAGES CT CHEST, ABDOMEN AND PELVIS [facility] 05/31/2019 Clinical Indication: Male, 64 years old. Restage colon cancer. Cancer of the ascending colon. Technique: Multiple contiguous axial images were obtained through the chest, abdomen and pelvis following the administration of IV contrast material. Post processing coronal and sagittal reconstruction images were made from the axial images. IV contrast: Omnipaque 300 Bowel contrast: None Comparison: Prior CT chest abdomen pelvis dated 02/26/2019 CHEST FINDINGS: Lower Neck: Unremarkable Axilla, Mediastinum and Sara: No axillary or hilar lymphadenopathy. Redemonstration of mild mediastinal lymphadenopathy. The reference subcarinal lymph node now measures 2.5 x 1.5 cm (series 2 image 31), previously 2.2 x 2 cm. No new thoracic lymphadenopathy. Heart and Great Vessels: Heart size is normal. The thoracic aorta and main pulmonary artery are normal caliber. Airway, Lungs and Pleura: The central airways are patent. No pleural effusion or pneumothorax. No significant change in multilobulated right upper lobe pulmonary nodule. The dominant component measures up to 1.1 cm (series 2 image 17), previously measuring up to 1.3 cm. Additional adjacent subcentimeter right upper lobe pulmonary nodule is unchanged. No significant change in nodularity along the right major fissure. Scattered areas of pleural-parenchymal scarring. Additional subtle 5 mm pulmonary nodules in the right lung appear unchanged since at least November 2018, for example series 2 images 31 and 35. There has been development of 2 new sub-5 mm right lung base pulmonary nodules on images 50 and 52 series 2. Chest Wall and Osseous Structures: No destructive osseous lesions. Mild thoracic spondylosis. Unchanged osseous bridge of the left posterior sixth and seventh ribs. ABDOMEN AND PELVIS FINDINGS: Liver and Biliary system: The liver is normal in size. Redemonstration of scattered hepatic cysts with additional hepatic hypodensities which remain too small to characterize. Unchanged small hepatic metastases in segment 6 of the liver. The previously referenced lesions now measure 1 x 1.2 cm (lateral lesion series 3 image 27) previously measuring 1.1 x 1.4 cm, and 1.5 x 1.8 cm (medial lesion series 3 image 26) previously measuring 1.2 x 1.7 cm. No new hepatic lesions identified. The gallbladder is nondistended with radiopaque gallstones. No biliary ductal dilation. The major portal veins are patent. Spleen: Unchanged hypodensity within the splenic dome which remains too small to characterize. Adrenal Glands and Kidneys: 1.3 cm left adrenal hypodense mass appears unchanged since at least November 2015 consistent with a benign adenoma. The right adrenal gland is unremarkable. No hydronephrosis or nephrolithiasis. Pancreas and Retroperitoneum: The pancreas is unremarkable. Enlarging retroperitoneal lymph nodes since November 2018. Residual lymph node just below the aortic bifurcation measures 1.3 cm. Aorta and Major Vessels: The abdominal aorta is normal caliber with mild calcific atherosclerosis. Bowel, Mesentery and Peritoneal space: Prior subtotal colectomy with right lower quadrant loop ileostomy. The remaining large and small bowel are normal caliber. Unchanged prominent mesenteric lymph nodes since the most recent prior exam, though, this has progressed since November 2018. The previously referenced central mesenteric lymph node measures 1 cm (series 3 image 30), previously 1 cm when measured in a similar fashion. Pelvis: The partially distended urinary bladder is unremarkable. Moderate nodular enlargement of the prostate. Redemonstration without significant change of bilateral prominent inguinal lymph nodes. Upper pelvic lymphadenopathy as described above. Abdominal wall and Osseous Structures: Prior umbilical hernia repair with mesh and redemonstration of a ventral abdominal hernia just cephalad to the mesh containing a portion of normal caliber bowel. Unchanged large parastomal hernia containing mesenteric fat, vasculature, and normal caliber bowel. Fat-containing left inguinal hernia. No destructive osseous lesions. IMPRESSION CHEST: 1. No significant change and mild mediastinal lymphadenopathy. 2. No significant change in right upper lobe pulmonary metastases and pleural nodules with development of a few new subcentimeter pulmonary nodules concerning for new pulmonary metastases. ABDOMEN AND PELVIS: 1. Overall stable appearance of hepatic metastases with no new hepatic lesions identified. 2. Unchanged mild retroperitoneal lymphadenopathy since the most recent prior exam, however, this has progressed in size since the prior exam of November 2018 consistent with early yaquelin metastatic disease. 3. No significant change in prominent mesenteric lymph nodes. 4. Prior subtotal colectomy with right lower quadrant ileostomy and Sanjay pouch creation without evidence of bowel obstruction. 5. Cholelithiasis. 6. Prior umbilical hernia repair with mesh and redemonstration of a ventral abdominal hernia just cephalad to the mesh containing a portion of normal caliber bowel. Unchanged large parastomal hernia containing mesenteric fat, vasculature, and normal caliber bowel. ASSESSMENT/PLAN ASSESSMENT/PLAN 1. Arrhythmia: NSVT and Aflutter episodes likely from metabolic derangement. Ma intaining SR 2. Stage 4 Colon CA with mets to lungs and liver treated with chemotherapy 3. Recent Flu B 4. Severe THAD/uremia: new HD 5. Sepsis: post portacath removal 6. HTN: labile episode 7. Mild trop elevation: peaked at 0.08, demand mediated. CP free. Recommendations 1. TTE, check TSH 2. Lopressor IV PRN. DC home ACEi. Could start on po BB if PO allowed for HTN and arrhythmia control pending BP trend. 3. Pt does take xarelto for VTE prevention given that his chemo could cause thi s. Will need transition to eliquis once portacath is replaced. Will defer this to hemonc. 4. Supportive care. DOM DONOVAN MD 08/06/19 1411: CARDIAC CONSULT ASSESSMENT/PLAN ASSESSMENT/PLAN Pt. seen and examined. Agree with above SOUND EQUIPMENT MECHANIC note. Given extensive comorbid conditions, would treat conservatively at this time if echo is wnl. If echo is significant abnormal, could consider further evaluation based on prognosis. Supportive care. JUSTYN BROTHERS APRN Aug 06, 2019 08:07 DOM DONOVAN MD Aug 06, 2019 14:11
--- NOTE | 2019-08-06 09:03 | NUR ---
IP: Pt has completed 7 days post influenza and has been afebrile >24 hours. Pt may be removed from droplet precautions.
[2019-08-06] MEDS: ceFAZolin SODIUM IV Push 1 GM VIAL. IVP SCH (09:41)
[2019-08-06] MEDS: IV RINGERS,LACTATED 1000ML 1,000 ML IV SCH (09:41)
--- NOTE | 2019-08-06 10:17 | PDOC ---
Infectious Disease Note Subjective: Subjective Pt says feels better no complaints underwent ba cath removal Increase urination Denies pain/F/C/SOA /cough/Chestpain/joint pain Vital Signs: Vital Signs Vital Signs Date Time Temp Pulse Resp B/P (MAP) Pulse Ox O2 Delivery O2 Flow Rate FiO2 08/06/19 07:15 98.5 96 18 169/86 (113) 95 Room Air 98.5 08/05/19 08:15 2.0 Physical Exam: PHYSICAL EXAM GENERAL: Propped up in bed, alert eating HEENT: Pupils equally round. Normal conjunctivae. Oropharynx pink and dry. Poor dentition. NECK: Supple. LUNGS: Diminished aeration, nonlabored. HEART: S1, S2 regular. ABDOMEN: Soft, nontender, bowel sounds with ostomy. midline chronic abdominal wound with n purulence EXTREMITIES: No gross edema or cyanosis. SKIN: Warm to touch without signs of rash. NEUROLOGIC: Alert and answering questions appropriately. Right-sided chest Port-A-Cath without signs of any complications. LT CW HDC in place Medications: Inpatient Meds: Current Medications Medications (Trade) Dose Ordered Sig/Joseph Start Time Stop Time Status Last Admin Dose Admin Acetaminophen (Tylenol) 650 mg PRN Q4HRS PRN 07/30/19 22:30 07/31/19 22:29 DC Albumin Human 200 ml @ 200 mls/hr 1X PRN PRN 08/04/19 10:00 08/04/19 15:59 DC Cefazolin Sodium (Ancef) 1 gm DAILY 08/04/19 13:00 08/06/19 09:41 1 GM Ceftriaxone Sodium (Rocephin) 1 gm 1X ONCE 07/30/19 19:30 07/30/19 19:31 DC 07/30/19 19:35 1 GM Daptomycin 450 mg/ Sodium Chloride 50 ml @ 100 mls/hr Q48H 08/01/19 13:00 08/04/19 12:33 DC 08/03/19 12:43 100 MLS/HR Daptomycin 500 mg/ Sodium Chloride 50 ml @ 100 mls/hr 1X ONCE 07/31/19 17:30 07/31/19 17:59 DC 07/31/19 18:35 100 MLS/HR Heparin Sodium (Porcine) (Heparin Sodium) 5,000 unit Q12HR 08/02/19 21:00 08/05/19 22:04 5,000 UNIT Info (PHARMACY MONITORING -- do not chart) 1 each PRN DAILY PRN 08/04/19 10:00 Levofloxacin/ Dextrose 150 ml @ 100 mls/hr 1X ONCE 07/30/19 22:00 07/30/19 23:29 DC 07/30/19 22:02 100 MLS/HR Lidocaine HCl (Buffered Lidocaine 1%) 3 ml 1X ONCE 08/03/19 12:00 08/03/19 12:01 DC 08/03/19 12:09 5 ML Lidocaine/ Epinephrine (LIDOCAINE 1%-EPI 1:100,000 Multi-Dose) 20 ml 1X ONCE 08/05/19 12:45 08/05/19 12:46 DC 08/05/19 12:41 20 ML Lisinopril (Prinivil) 10 mg DAILY 08/03/19 09:00 Cancel Non-Formulary Medication (Rivaroxaban (Xarelto)) 20 mg DAILY 08/02/19 17:00 UNV Norepinephrine Bitartrate 8 mg/ Dextrose 258 ml @ 15.383 mls/ hr 1X ONCE 07/30/19 20:30 07/31/19 13:16 DC 07/30/19 20:55 1.875 MLS/HR Ondansetron HCl (Zofran) 4 mg PRN Q8HRS PRN 07/30/19 22:30 07/31/19 22:29 DC Oseltamivir Phosphate (Tamiflu) 30 mg 1X ONCE 07/31/19 15:00 07/31/19 15:01 DC 07/31/19 17:29 30 MG Piperacillin Sod/ Tazobactam Sod (Zosyn Per Pharmacy) 1 each PRN DAILY PRN 07/31/19 10:00 08/03/19 15:03 DC Piperacillin Sod/ Tazobactam Sod 2.25 gm/Sodium Chloride 50 ml @ 100 mls/hr Q8HRS 07/31/19 10:00 08/03/19 09:25 DC 08/03/19 05:52 100 MLS/HR Ringer's Solution 1,000 ml @ 100 mls/hr Q10H 07/31/19 12:30 08/06/19 09:41 100 MLS/HR Sodium Bicarbonate 50 meq/Dextrose 1,050 ml @ 125 mls/hr 1X ONCE 07/30/19 22:30 07/31/19 06:53 DC 07/31/19 00:32 125 MLS/HR Sodium Bicarbonate (Sodium Bicarb Adult 8.4% Syr) 50 meq Q2HR 08/01/19 10:00 08/01/19 12:01 DC 08/01/19 13:03 50 MEQ Sodium Chloride 1,000 ml @ 400 mls/hr Q2H30M PRN 08/04/19 09:46 08/04/19 21:45 DC Sodium Chloride (Normal Saline Flush) 10 ml 1X PRN PRN 08/04/19 10:00 08/05/19 09:59 DC Vancomycin HCl (Vanco Per Pharmacy) 1 each PRN DAILY PRN 07/30/19 21:30 07/31/19 09:56 DC 07/31/19 05:38 1 EACH Vancomycin HCl (Vancomycin Random Level) 1 each 1X ONCE 08/01/19 22:00 08/01/19 22:01 Cancel Vancomycin HCl 2 gm/Sodium Chloride 500 ml @ 250 mls/hr 1X ONCE 07/30/19 22:00 07/30/19 23:59 DC 07/30/19 21:51 250 MLS/HR Labs: Micro RUN DATE: 08/04/19 [facility] *LIVE* PAGE 1 RUN TIME: 717 Specimen Inquiry PATIENT: KELLY DONOVAN ACCT: [id number] LOC: [address] [place] [address] U: [id number] AGE/SX: 64/M ROOM: 658 RE07/30/[address]: DWAYNE TIDWELL MD : 1955 BED: 1 DIS: STATUS: ADM IN TLOC: SPEC #: [id number] MAGEN: 07/30/19 STATUS: COMP REQ #: [id number] RECD: 07/30/19-[address]: RIYA MALLORY MD SOURCE: BLOOD ENTR: 07/31/19-[address] [place] [address] DR: TOAN HERNANDEZ SPDESC: ORDERED: BLD CULT - LC Procedure Result BLOOD CULTURE LC Final Final report BLD CULT RESULT 1 Final Staphylococcus aureus Based on susceptibility to oxacillin this isolate would be susceptible to: *Penicillinase-stable penicillins, such as: Cloxacillin, Dicloxacillin, Nafcillin *Beta-lactam combination agents, such as: Amoxicillin-clavulanic acid, Ampicillin-sulbactam, Piperacillin-tazobactam *Oral cephems, such as: Cefaclor, Cefdinir, Cefpodoxime, Cefprozil, Cefuroxime, Cephalexin, Loracarbef *Parenteral cephems, such as: Cefazolin, Cefepime, Cefotaxime, Cefotetan, Ceftaroline, Ceftizoxime, Ceftriaxone, Cefuroxime *Carbapenems, such as: Doripenem, Ertapenem, Imipenem, Meropenem CLINDAMYCIN <=0.25 =S ERYTHROMYCIN <=0.25 =S Performed at: - [facility] [address], [place] [id number] Electroencephalogram Technologist: ALEXANDRA Carrillo MD, Phone: [phone] ANTIMICROBIAL SUSCEPTIBILITY Final S = Susceptible; I = Intermediate; R = Resistant P = Positive; N = Negative MICS are expressed in micrograms per mL Antibiotic RSLT#1 RSLT#2 RSLT#3 RSLT#4 Ciprofloxacin S<=0.5 Gentamicin S<=0.5 Levofloxacin S =0.25 Linezolid S =4 Moxifloxacin S<=0.25 Nitrofurantoin S<=16 Oxacillin S =0.5 Penicillin R>=0.5 Quinupristin/Dalfopristin S<=0.25 Rifampin S<=0.5 Tetracycline S<=1 CONTINUED ON NEXT PAGE RUN DATE: 08/04/19 [facility] *LIVE* PAGE 2 RUN TIME: 717 Specimen Inquiry SPEC: [id number] PATIENT: KELLY DONOVAN [id number] (Continued) Procedure Result ANTIMICROBIAL SUSCEPTIBILITY Final (continued) Trimethoprim/Sulfa S<=10 Vancomycin S =1 Min Inhibitory Conc (1 Drug) Final report Result 1 Staphylococcus aureus DAPTOMYCIN 1.0 = S Objective: Assessment: Septic shock, POA off pressors from Staph aureus sepsis Methicillin sensitive Staph aureus bacteremia 07/30 and 07/31 source unclear ,infected chronic abdo wound vs ba cath ( 2015) Influenza B Hypothermia - improved THAD Colon cancer undergoing chemo at [facility]. Port-a-cath in place. 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 Clarke at [facility] Plan: Plan of Care cont cefazolin /, was on daptomycin prior,will need renal dosing Tamiflu, renal dosing, times one dose 07/31 repeat bc neg from 08/02 f/u port cath tip cults repeat bc today Will need removal of infected mesh,pt wants to hold off for now; He f/u with DR Clarke AT [facility] Risk of recurrence discussed with potential for metastatic complications despite adequate antibiotic therapy Monitor labs and cults Local wound care per wound team Droplet precautions D/w nursing ARMINDA HENNESSY MD Aug 06, 2019 10:17
--- NOTE | 2019-08-06 10:35 | CARD ---
MR#: [id number] Date of Study: 08/06/2019 Ordering Physician: JUSTYN BROTHERS, Referring Physician: JUSTYN BROTHERS, Tech: Millicent Snow [facility] APPROVED REPORT EXAM: Two-dimensional and M-mode echocardiogram with Doppler and color Doppler. Other Information Quality : AdequateHR: 94bpm Rhythm : NSR INDICATION Septic shock. Hypotensive, Cancer. 2D DIMENSIONS RVDd4.2 (2.9-3.5cm)IVSd1.2 (0.7-1.1cm) Aortic Root(2D)3.6 (2.0-3.7cm)LVDd4.9 (3.9-5.9cm) LVOT Diameter2.4 (1.8-2.4cm)PWd1.2 (0.7-1.1cm) LVDs3.7 (2.5-4.0cm)FS (%) 25.4 % SV56.8 ml Aortic Valve AoV Peak Marcelino.156.7cm/Rashida Peak GR.9.8mmHg LVOT Peak Marcelino.121.1cm/sAVA (VMAX)3.54cm2 Mitral Valve MV E Ecnqfztp90.4cm/sMV DECEL [id number] MV A Guoicare60.2cm/sE/A Ratio0.8 MV A [id number] Pulmonary Valve PV Peak Dcuqxvuo776.7cm/s Pulmonary Vein S1 Ccdflcqy22.3cm/sD2 Faakxsvj01.9cm/s LEFT VENTRICLE The left ventricle is normal size. There is mild concentric left ventricular hypertrophy. The left ve ntricular systolic function is low normal. The Ejection Fraction is 50-55%. There is normal LV segmen priscilla wall motion. Transmitral Doppler flow pattern is Grade I-abnormal relaxation pattern. RIGHT VENTRICLE The right ventricle is normal size. The right ventricular systolic function is normal. ATRIA The left atrium is mildly dilated. The right atrium size is normal. The interatrial septum is intact with no evidence for an atrial septal defect or patent foramen ovale as noted on 2-D or Doppler imagi ng. AORTIC VALVE The aortic valve is normal in structure and function. Mild aortic regurgitation. There is no signific ant aortic valvular stenosis. MITRAL VALVE The mitral valve is normal in structure and function. There is no mitral valve stenosis. No mitral va lve regurgitation noted. TRICUSPID VALVE The tricuspid valve is normal in structure and function. Trace tricuspid regurgitation. Unable to ass ess PA pressures. PULMONIC VALVE The pulmonary valve is normal in structure and function. No pulmonic valvular regurgitation. GREAT VESSELS The aortic root is normal in size. The ascending aorta is normal in size. The IVC is normal in size a nd collapses >50% with inspiration. PERICARDIAL EFFUSION There is no evidence of significant pericardial effusion. Critical Notification Critical Value: No <Conclusion> The left ventricle is normal size. The left ventricular systolic function is low normal. The Ejection Fraction is 50-55%. There is mild concentric left ventricular hypertrophy. Mild aortic regurgitation. There is no significant aortic valvular stenosis. No mitral valve regurgitation noted. Trace tricuspid regurgitation. Signed by : Alex Chavarria MD Electronically Approved : 08/06/2019 10:35:01
--- NOTE | 2019-08-06 10:49 | PDOC ---
SUBJECTIVE ROS seen on HD,pt denies any complaints OBJECTIVE Vital Signs Vital Signs Date Time Temp Pulse Resp B/P (MAP) Pulse Ox O2 Delivery O2 Flow Rate FiO2 08/06/19 07:15 98.5 96 18 169/86 (113) 95 Room Air 98.5 08/05/19 08:15 2.0 I & 0 Intake and Output 08/06/19 07:00 Intake Total 500 ml Output Total 400 ml Balance 100 ml Intake Oral 500 ml Output Urine Total 100 ml Stool Total 300 ml PHYSICAL EXAM Physical Exam GENERAL: NAD HEENT: Pupils equally round. Normal conjunctivae. Oropharynx moist NECK: Supple. LUNGS: Diminished at bases , nonlabored. HEART: S1, S2 regular. ABDOMEN: Soft, nontender, ostomy +. Midline abdominal wound scabbed EXTREMITIES: No gross edema or cyanosis. SKIN: Warm to touch without signs of rash. NEUROLOGIC: Alert and answering questions appropriately, / Mild tremores- ? Chronic Right-sided chest Port-A-Cath DIAGNOSIS/ASSESSMENT Assessment & Plan Acute kidney injury:Suspect ATN No focal abnormality seen in the kidneys or bladder on US , Normal Cr in 2018 ,Required HD in 2014 x 2 , Initiated Dialysis 08/03, seen on HD (3rd treatment ), tolerating well continue a sordered, Arthur Madrigal Records reviewed from - there are no labs available , No Dx of THAD or CKD mentioned in the notes from Strict I/O, monitor for renal recovery Access- Temp HDC , will need Tunneled HDC HyperUricemia- Uric acid was 15 on 08/03, Elevated Phos - Defer to Oncology Initiated on HD Severe intravascular volume depletion: recd IV fluids , no improvement in renal function Hypocalcemia: Corrects for severe hypoalbuminemia, HyperPhosphatemia- suspect sec to THAD , improving with HD Hypoalbuminemia: Presumably associated with metastatic disease to the liver,No proteinuria Micr hematuria (Non [place] sample) - Pr/Cr - No significant proteinuria needs further Eval if new onset , recommend Urology Possible sepsis: (G positive bacteremia is noted )Antibiotics per infectious disease physicians. Hx of infected abdominal hernia mesh associated with Prevotella bivia, history of scrotal abscess with yeast and Bacteroides Colon cancer undergoing chemotherapy at [facility]- Defer to Hem/onc history of urinary tract infections Chronic abdominal wound for which he is followed by Dr. Clarke at [facility] every 3 weeks. Anemia: Hemoglobin dropped from 14.5-11.7 suspect this is due to intravascular volume depletion at presentation and rehydration COMMENT/RELEVANT DATA Meds Current Medications Medications (Trade) Dose Ordered Sig/Joseph Start Time Stop Time Status Last Admin Dose Admin Acetaminophen (Tylenol) 650 mg PRN Q4HRS PRN 07/30/19 22:30 07/31/19 22:29 DC Albumin Human 200 ml @ 200 mls/hr 1X PRN PRN 08/04/19 10:00 08/04/19 15:59 DC Cefazolin Sodium (Ancef) 1 gm DAILY 08/04/19 13:00 08/06/19 09:41 1 GM Ceftriaxone Sodium (Rocephin) 1 gm 1X ONCE 07/30/19 19:30 07/30/19 19:31 DC 07/30/19 19:35 1 GM Daptomycin 450 mg/ Sodium Chloride 50 ml @ 100 mls/hr Q48H 08/01/19 13:00 08/04/19 12:33 DC 08/03/19 12:43 100 MLS/HR Daptomycin 500 mg/ Sodium Chloride 50 ml @ 100 mls/hr 1X ONCE 07/31/19 17:30 07/31/19 17:59 DC 07/31/19 18:35 100 MLS/HR Heparin Sodium (Porcine) (Heparin Sodium) 5,000 unit Q12HR 08/02/19 21:00 08/05/19 22:04 5,000 UNIT Info (PHARMACY MONITORING -- do not chart) 1 each PRN DAILY PRN 08/04/19 10:00 Levofloxacin/ Dextrose 150 ml @ 100 mls/hr 1X ONCE 07/30/19 22:00 07/30/19 23:29 DC 07/30/19 22:02 100 MLS/HR Lidocaine HCl (Buffered Lidocaine 1%) 3 ml 1X ONCE 08/03/19 12:00 08/03/19 12:01 DC 08/03/19 12:09 5 ML Lidocaine/ Epinephrine (LIDOCAINE 1%-EPI 1:100,000 Multi-Dose) 20 ml 1X ONCE 08/05/19 12:45 08/05/19 12:46 DC 08/05/19 12:41 20 ML Lisinopril (Prinivil) 10 mg DAILY 08/03/19 09:00 Cancel Non-Formulary Medication (Rivaroxaban (Xarelto)) 20 mg DAILY 08/02/19 17:00 UNV Norepinephrine Bitartrate 8 mg/ Dextrose 258 ml @ 15.383 mls/ hr 1X ONCE 07/30/19 20:30 07/31/19 13:16 DC 07/30/19 20:55 1.875 MLS/HR Ondansetron HCl (Zofran) 4 mg PRN Q8HRS PRN 07/30/19 22:30 07/31/19 22:29 DC Oseltamivir Phosphate (Tamiflu) 30 mg 1X ONCE 07/31/19 15:00 07/31/19 15:01 DC 07/31/19 17:29 30 MG Piperacillin Sod/ Tazobactam Sod (Zosyn Per Pharmacy) 1 each PRN DAILY PRN 07/31/19 10:00 08/03/19 15:03 DC Piperacillin Sod/ Tazobactam Sod 2.25 gm/Sodium Chloride 50 ml @ 100 mls/hr Q8HRS 07/31/19 10:00 08/03/19 09:25 DC 08/03/19 05:52 100 MLS/HR Ringer's Solution 1,000 ml @ 100 mls/hr Q10H 07/31/19 12:30 08/06/19 09:41 100 MLS/HR Sodium Bicarbonate 50 meq/Dextrose 1,050 ml @ 125 mls/hr 1X ONCE 07/30/19 22:30 07/31/19 06:53 DC 07/31/19 00:32 125 MLS/HR Sodium Bicarbonate (Sodium Bicarb Adult 8.4% Syr) 50 meq Q2HR 08/01/19 10:00 08/01/19 12:01 DC 08/01/19 13:03 50 MEQ Sodium Chloride 1,000 ml @ 400 mls/hr Q2H30M PRN 08/04/19 09:46 08/04/19 21:45 DC Sodium Chloride (Normal Saline Flush) 10 ml 1X PRN PRN 08/04/19 10:00 08/05/19 09:59 DC Vancomycin HCl (Vanco Per Pharmacy) 1 each PRN DAILY PRN 07/30/19 21:30 07/31/19 09:56 DC 07/31/19 05:38 1 EACH Vancomycin HCl (Vancomycin Random Level) 1 each 1X ONCE 08/01/19 22:00 08/01/19 22:01 Cancel Vancomycin HCl 2 gm/Sodium Chloride 500 ml @ 250 mls/hr 1X ONCE 07/30/19 22:00 07/30/19 23:59 DC 07/30/19 21:51 250 MLS/HR Results All relevant outside records, renal labs, imaging studies, telemetry/EKG's were reviewed. JE RIBEIRO MD Aug 06, 2019 10:49
[2019-08-06] MEDS: HEPARIN for SUB-Q USE 5,000 UNIT/ML VIAL. SQ SCH (10:55)
[2019-08-06] MEDS ORDERED: METOPROLOL TARTRATE 5 MG/5 ML VIAL. IVP PRN (11:00)
[2019-08-06 11:13] VITALS: BP 155/80
[2019-08-06] MEDS ORDERED: IV NORMAL SALINE 1000ML BAG 1,000 ML IV PRN ×2 (11:26)
[2019-08-06] MEDS ORDERED: 0.9 % SODIUM CHLORIDE 10 ML DISP.SYRIN. IV PRN ×2 (11:30)
[2019-08-06] MEDS ORDERED: DIALYSIS PATIENT. MC PRN ×2 (11:30)
[2019-08-06] MEDS ORDERED: ALBUMIN HUMAN 25% 200 ML IV PRN (11:30)
--- NOTE | 2019-08-06 12:26 | PDOC ---
PROGRESS NOTES Subjective Subjective HPI - f/u of Stage 4 colon cancer ROS - no fever Objective Objective Vital Signs Date Time Temp Pulse Resp B/P (MAP) Pulse Ox O2 Delivery O2 Flow Rate FiO2 08/06/19 11:13 97.9 97 20 155/80 (105) 96 Room Air 97.9 08/05/19 08:15 2.0 Intake and Output 08/06/19 07:00 Intake Total 500 ml Output Total 400 ml Balance 100 ml Intake Oral 500 ml Output Urine Total 100 ml Stool Total 300 ml Physical Exam Heart: Normal S1, Normal S2 General: Alert, Oriented X3 Lungs: Clear to auscultation Neuro: Normal speech Psych/Mental Status: Mental status NL Assessment Assessment Problems Medical Problems: (1) Acute renal failure Status: Acute (2) Influenza Status: Acute (3) Pneumonia Status: Acute (4) Septic shock Status: Acute IMPRESSION AND PLAN: 1. Stage 4 colon cancer with predominantly omental metastasis and positive KRAS mutation diagnosed in 12/2014. He is currently on chemotherapy with FOLFIRI under the direction of Dr. Thang Haji. He is now admitted with septic shock from Staph aureus sepsis. ID is on board managing antibiotics. I have advised him to follow up with Dr. Thang Haji upon discharge. 2. Influenza B. Continue management per ID. 3. Septic shock, improving. s/p port removal 08/05/19. 4. Acute renal failure due to septic shock. Appreciate Nephrology consultation. On dialysis. Comment Review of Relevant I have reviewed the following items renetta (where applicable) has been applied. Labs Laboratory Tests Test 08/05/19 03:00 08/05/19 08:20 08/06/19 10:05 White Blood Count 14.1 x10^3/uL (4.0-11.0) Red Blood Count 3.90 x10^6/uL (4.30-5.70) Hemoglobin 11.0 g/dL (13.0-17.5) Hematocrit 32.9 % (39.0-53.0) Mean Corpuscular Volume 84 fL (79-100) Mean Corpuscular Hemoglobin 28 pg (25-35) Mean Corpuscular Hemoglobin Concent 33 g/dL (31-37) Red Cell Distribution Width 17.2 % (11.5-14.5) Platelet Count 211 x10^3/uL (140-400) Neutrophils (%) (Auto) 86 % (31-73) Lymphocytes (%) (Auto) 5 % (24-48) Monocytes (%) (Auto) 8 % (0-9) Eosinophils (%) (Auto) 1 % (0-3) Basophils (%) (Auto) 0 % (0-3) Neutrophils # (Auto) 12.2 x10^3/uL (1.8-7.7) Lymphocytes # (Auto) 0.7 x10^3/uL (1.0-4.8) Monocytes # (Auto) 1.1 x10^3/uL (0.0-1.1) Eosinophils # (Auto) 0.1 x10^3/uL (0.0-0.7) Basophils # (Auto) 0.0 x10^3/uL (0.0-0.2) Sodium Level 142 mmol/L (136-145) 143 mmol/L (136-145) Potassium Level 4.2 mmol/L (3.5-5.1) 4.5 mmol/L (3.5-5.1) Chloride Level 102 mmol/L (98-107) 104 mmol/L (98-107) Carbon Dioxide Level 26 mmol/L (21-32) 22 mmol/L (21-32) Anion Gap 14 (6-14) 17 (6-14) Blood Urea Nitrogen 65 mg/dL (8-26) 85 mg/dL (8-26) Creatinine 7.3 mg/dL (0.7-1.3) 9.4 mg/dL (0.7-1.3) Estimated GFR (Cockcroft-Gault) 7.5 5.6 Glucose Level 111 mg/dL (70-99) 99 mg/dL (70-99) Calcium Level 9.0 mg/dL (8.5-10.1) 9.1 mg/dL (8.5-10.1) Phosphorus Level 6.8 mg/dL (2.6-4.7) Albumin 2.7 g/dL (3.4-5.0) Prothrombin Time 15.9 SEC (11.7-14.0) Prothromb Time International Ratio 1.3 (0.8-1.1) Activated Partial Thromboplast Time 30 SEC (24-38) Urine Random Creatinine 134.6 mg/dL (Not Establ.) Urine Random Total Protein < 6.0 mg/dL (Not Establ.) Magnesium Level 2.2 mg/dL (1.8-2.4) Laboratory Tests Test 08/06/19 10:05 Sodium Level 143 mmol/L (136-145) Potassium Level 4.5 mmol/L (3.5-5.1) Chloride Level 104 mmol/L (98-107) Carbon Dioxide Level 22 mmol/L (21-32) Anion Gap 17 (6-14) Blood Urea Nitrogen 85 mg/dL (8-26) Creatinine 9.4 mg/dL (0.7-1.3) Estimated GFR (Cockcroft-Gault) 5.6 Glucose Level 99 mg/dL (70-99) Calcium Level 9.1 mg/dL (8.5-10.1) Magnesium Level 2.2 mg/dL (1.8-2.4) Microbiology 08/05/19 Blood Culture - Preliminary, Resulted NO GROWTH AFTER 1 DAY Medications Current Medications Ceftriaxone Sodium (Rocephin) 1 gm 1X ONCE IVP Last administered on 07/30/19at 19:35; Start 07/30/19 at 19:30; Stop 07/30/19 at 19:31; Status DC Sodium Chloride 1,000 ml @ 1,000 mls/hr 1X ONCE IV Last administered on 07/30/19at 19:31; Start 07/30/19 at 19:30; Stop 07/30/19 at 20:29; Status DC Ondansetron HCl (Zofran) 4 mg 1X ONCE IVP Last administered on 07/30/19at 19:34; Start 07/30/19 at 19:30; Stop 07/30/19 at 19:31; Status DC Norepinephrine Bitartrate 8 mg/ Dextrose 258 ml @ 15.383 mls/ hr 1X ONCE IV Last administered on 07/30/19at 20:55; Start 07/30/19 at 20:30; Stop 07/31/19 at 13:16; Status DC Sodium Chloride 2,190 ml @ 2,190 mls/hr Q1H IV Last administered on 07/30/19at 21:39; Start 07/30/19 at 21:30; Stop 07/30/19 at 21:40; Status DC Vancomycin HCl (Vanco Per Pharmacy) 1 each PRN DAILY PRN MC SEE COMMENTS Last administered on 07/31/19at 05:38; Start 07/30/19 at 21:30; Stop 07/31/19 at 09:56; Status DC Levofloxacin/ Dextrose 150 ml @ 100 mls/hr 1X ONCE IV Last administered on 07/30/19at 22:02; Start 07/30/19 at 22:00; Stop 07/30/19 at 23:29; Status DC Sodium Chloride 1,000 ml @ 1,000 mls/hr Q1H IV Last administered on 07/30/19at 22:30; Start 07/30/19 at 21:40; Stop 07/30/19 at 23:28; Status DC Vancomycin HCl 2 gm/Sodium Chloride 500 ml @ 250 mls/hr 1X ONCE IV Last administered on 07/30/19at 21:51; Start 07/30/19 at 22:00; Stop 07/30/19 at 23:59; Status DC Sodium Bicarbonate 50 meq/Dextrose 1,050 ml @ 125 mls/hr 1X ONCE IV Last adm inistered on 07/31/19at 00:32; Start 07/30/19 at 22:30; Stop 07/31/19 at 06:53; Status DC Ondansetron HCl (Zofran) 4 mg PRN Q8HRS PRN IV NAUSEA/VOMITING 1ST CHOICE; Start 07/30/19 at 22:30; Stop 07/31/19 at 22:29; Status DC Acetaminophen (Tylenol) 650 mg PRN Q4HRS PRN PO FEVER; Start 07/30/19 at 22:30; Stop 07/31/19 at 22:29; Status DC Vancomycin HCl (Vancomycin Random Level) 1 each 1X ONCE MC ; Start 08/01/19 at 22:00; Stop 08/01/19 at 22:01; Status Cancel Piperacillin Sod/ Tazobactam Sod (Zosyn Per Pharmacy) 1 each PRN DAILY PRN MC SEE COMMENTS; Start 07/31/19 at 10:00; Stop 08/03/19 at 15:03; Status DC Piperacillin Sod/ Tazobactam Sod 2.25 gm/Sodium Chloride 50 ml @ 100 mls/hr Q8HRS IV Last administered on 08/03/19at 05:52; Start 07/31/19 at 10:00; Stop at 09:25; Status DC Ringer's Solution 1,000 ml @ 100 mls/hr Q10H IV Last administered on 08/06/19at 09:41; Start 07/31/19 at 12:30 Sodium Chloride 500 ml @ 0 mls/hr QID PRN IV UO< 30cc/hr over previous 6hrs Last administered on 08/01/19at 10:16; Start 07/31/19 at 12:30 Oseltamivir Phosphate (Tamiflu) 30 mg DAILY PO ; Start 07/31/19 at 15:00; Stop 08/04/19 at 09:01; Status Cancel Oseltamivir Phosphate (Tamiflu) 30 mg 1X ONCE PO Last administered on 07/31/19at 17:29; Start 07/31/19 at 15:00; Stop 07/31/19 at 15:01; Status DC Daptomycin 500 mg/ Sodium Chloride 50 ml @ 100 mls/hr 1X ONCE IV Last administered on 07/31/19at 18:35; Start 07/31/19 at 17:30; Stop 07/31/19 at 17:59; Status DC Sodium Bicarbonate (Sodium Bicarb Adult 8.4% Syr) 50 meq Q2HR IV Last adm inistered on 08/01/19at 13:03; Start 08/01/19 at 10:00; Stop 08/01/19 at 12:01; Status DC Albumin Human 100 ml @ 100 mls/hr TID IV Last administered on 08/02/19at 20:23; Start 08/01/19 at 09:30; Stop 08/02/19 at 21:59; Status DC Daptomycin 450 mg/ Sodium Chloride 50 ml @ 100 mls/hr Q48H IV Last administered on 08/03/19at 12:43; Start 08/01/19 at 13:00; Stop 08/04/19 at 12:33; Status DC Lisinopril (Prinivil) 10 mg DAILY PO ; Start 08/03/19 at 09:00; Status Cancel Non-Formulary Medication (Rivaroxaban (Xarelto)) 20 mg DAILY PO ; Start 08/02/19 at 17:00; Status UNV Heparin Sodium (Porcine) (Heparin Sodium) 5,000 unit Q12HR SQ Last administered on 08/06/19at 10:55; Start 08/02/19 at 21:00 Lidocaine HCl (Buffered Lidocaine 1%) 3 ml STK-MED ONCE .ROUTE ; Start 08/03/19 at 10:59; Stop 08/03/19 at 10:59; Status DC Sodium Chloride 1,000 ml @ 1,000 mls/hr Q1H PRN IV hypotension; Start 08/03/19 at 11:29; Stop 08/03/19 at 17:28; Status UNV Albumin Human 200 ml @ 200 mls/hr 1X PRN PRN IV Hypotension; Start 08/03/19 at 11:30; Stop 08/03/19 at 17:29; Status DC Sodium Chloride 1,000 ml @ 400 mls/hr Q2H30M PRN IV PATENCY; Start 08/03/19 at 11:29; Stop 08/03/19 at 23:28; Status DC Info (PHARMACY MONITORING -- do not chart) 1 each PRN DAILY PRN MC SEE COMMENTS; Start 08/03/19 at 11:30; Status Cancel Info (PHARMACY MONITORING -- do not chart) 1 each PRN DAILY PRN MC SEE COMMENTS; Start 08/03/19 at 11:30; Stop 08/03/19 at 11:39; Status DC Lidocaine HCl (Buffered Lidocaine 1%) 3 ml 1X ONCE INJ Last administered on 08/03/19at 12:09; Start 08/03/19 at 12:00; Stop 08/03/19 at 12:01; Status DC Sodium Chloride 1,000 ml @ 1,000 mls/hr Q1H PRN IV hypotension; Start 08/04/19 at 09:46; Stop 08/04/19 at 15:45; Status DC Albumin Human 200 ml @ 200 mls/hr 1X PRN PRN IV Hypotension; Start 08/04/19 at 10:00; Stop 08/04/19 at 15:59; Status DC Sodium Chloride (Normal Saline Flush) 10 ml 1X PRN PRN IV AP catheter pack; Start 08/04/19 at 10:00; Stop 08/05/19 at 09:59; Status DC Sodium Chloride (Normal Saline Flush) 10 ml 1X PRN PRN IV PLASTIC DESIGN APPLIER catheter pack; Start 08/04/19 at 10:00; Stop 08/05/19 at 09:59; Status DC Sodium Chloride 1,000 ml @ 400 mls/hr Q2H30M PRN IV PATENCY; Start 08/04/19 at 09:46; Stop 08/04/19 at 21:45; Status DC Info (PHARMACY MONITORING -- do not chart) 1 each PRN DAILY PRN MC SEE COMMENTS; Start 08/04/19 at 10:00; Status UNV Info (PHARMACY MONITORING -- do not chart) 1 each PRN DAILY PRN MC SEE COMMENTS; Start 08/04/19 at 10:00 Cefazolin Sodium (Ancef) 1 gm DAILY IVP Last administered on 08/06/19at 09:41; Start 08/04/19 at 13:00 Lidocaine/ Epinephrine (LIDOCAINE 1%-EPI 1:100,000 Multi-Dose) 20 ml STK-MED ONCE .ROUTE ; Start 08/05/19 at 12:04; Stop 08/05/19 at 12:05; Status DC Lidocaine/ Epinephrine (LIDOCAINE 1%-EPI 1:100,000 Multi-Dose) 20 ml 1X ONCE SQ Last administered on 08/05/19at 12:41; Start 08/05/19 at 12:45; Stop 08/05/19 at 12:46; Status DC Metoprolol Tartrate (Lopressor Vial) 5 mg PRN Q6HRS PRN IVP TACHYCARDIA; Start 08/06/19 at 11:00 Sodium Chloride 1,000 ml @ 1,000 mls/hr Q1H PRN IV hypotension; Start 08/06/19 at 11:26; Stop 08/06/19 at 17:25 Albumin Human 200 ml @ 200 mls/hr 1X PRN PRN IV Hypotension; Start 08/06/19 at 11:30; Stop 08/06/19 at 17:29 Sodium Chloride (Normal Saline Flush) 10 ml 1X PRN PRN IV AP catheter pack; Start 08/06/19 at 11:30; Stop 08/07/19 at 11:29 Sodium Chloride (Normal Saline Flush) 10 ml 1X PRN PRN IV PLASTIC DESIGN APPLIER catheter pack; Start 08/06/19 at 11:30; Stop 08/07/19 at 11:29 Sodium Chloride 1,000 ml @ 400 mls/hr Q2H30M PRN IV PATENCY; Start 08/06/19 at 11:26; Stop 08/06/19 at 23:25 Info (PHARMACY MONITORING -- do not chart) 1 each PRN DAILY PRN MC SEE COMMENTS; Start 08/06/19 at 11:30; Status UNV Info (PHARMACY MONITORING -- do not chart) 1 each PRN DAILY PRN MC SEE COMMENTS; Start 08/06/19 at 11:30 Active Scripts Active Reported Xarelto (Rivaroxaban) 20 Mg Tablet 20 Mg PO DAILY Lisinopril 20 Mg Tablet 10 Mg PO DAILY Vitals/I & O Vital Sign - Last 24 Hours 08/05/19 08/05/19 08/05/19 08/05/19 15:23 19:30 20:05 23:30 Temp 97.9 97.9 98.4 97.9 97.9 98.4 Pulse 100 102 101 Resp 20 17 17 B/P (MAP) 157/81 (106) 150/80 (103) 145/78 (100) Pulse Ox 94 95 94 O2 Delivery Room Air Room Air Room Air Room Air 08/06/19 08/06/19 08/06/19 08/06/19 03:30 07:15 08:30 11:13 Temp 98.4 98.5 97.9 98.4 98.5 97.9 Pulse 102 96 97 Resp 17 18 20 B/P (MAP) 153/86 (108) 169/86 (113) 155/80 (105) Pulse Ox 94 95 96 O2 Delivery Room Air Room Air Room Air Room Air Intake and Output 08/05/19 08/05/19 08/06/19 15:00 23:00 07:00 Intake Total 0 ml 200 ml 300 ml Output Total 400 ml Balance 0 ml 200 ml -100 ml Nutrition Consultation Dietary Evaluation: Recommendations by RD: Dietary education by RD, Increase Calorie Intake, Protein supplementation Comments: provided diet edcuation to pt on renal HD diet magic cup bid REC mvi and vit c per wound protocal Expected Outcomes/Goals: to meet >75% est nutr needs- goal ongoing Malnutrition Findings: Food and Nutrition Intake (Mod: <75% est energy req 7days Weight Status: Appropriate LAWRENCE CARROLL MD Aug 06, 2019 12:26
--- NOTE | 2019-08-06 13:05 | PDOC ---
PROGRESS NOTES Chief Complaint Chief Complaint Septic shock, present on admission. Hypothermia. Influenza B. Acute kidney injury. Colon cancer, undergoing chemotherapy. 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 Critically ill. History of Present Illness History of Present Illness Mr Nath is a 64 yo M PMHx infected abdominal hernia mesh associated with Prevotella bivia, history of scrotal abscess with yeast and Bacteroides, colon cancer undergoing chemotherapy at [facility], hypertension, degenerative joint disease, history of urinary tract infections p/w weakness, nausea, vomiting. He says his last treatment was a couple of weeks ago and since then has been feeling progressively weak with intermittent nausea and vomiting and increased ostomy output more than usual. He has developed a cough with some phlegm production as well. On arrival to the ER, he was hypothermic, hypotensive with bandemia and lactic acid of 2.6. Chest x-ray showed patchy bibasilar opacities and possible small left pleural effusion. He tested positive for influenza B. He was also in acute renal failure with a creatinine of 15.1 and BUN 216. He is admitted to the intensive care unit on Levophed drip. He was dosed with vancomycin, ceftriaxone, and levofloxacin. On 5L NCO2. He has a chronic abdominal wound for which he is followed by Dr. Clarke at [facility] every 3 weeks. 2: Patient seen and examined in the ICU. He had one of 2 bottles growing gram- positive cocci (infectious disease is following) 2: No Overnight events. Seen bedside. He states he is feeling better. Profou ndly weak, cannot even reposition himself in bed. No SOB or CP. Discussed need for mesh removal and port removal given bacteremia - would like to f/u at [facility] with DR Clarke instead. Risk of failure and recurrence with metastatic seeding discussed. 08/03: He is feeling about the same. Repeat blood cultures negative, renal function unchanged. He consents to temporary HD catheter placement for now. Still very weak, deconditioned. 08/04: Dialysis 08/05: He is still weak, port removal today with tip culture. Still short of breath. Staph aureus in blood culture. BUN and cr back up today. Plan for dialysis today. Plan: Cont antibiotics, dialysis [facility] Vitals Vital Signs Date Time Temp Pulse Resp B/P (MAP) Pulse Ox O2 Delivery O2 Flow Rate FiO2 08/06/19 11:13 97.9 97 20 155/80 (105) 96 Room Air 97.9 08/05/19 08:15 2.0 Physical Exam Physical Exam GENERAL: Propped up in bed, alert eating HEENT: Pupils equally round. Normal conjunctivae. Oropharynx pink and dry. Poor dentition. NECK: Supple. LUNGS: Diminished aeration, nonlabored. HEART: S1, S2 regular. ABDOMEN: Soft, nontender, bowel sounds with ostomy. midline chronic abdominal wound with n purulence EXTREMITIES: No gross edema or cyanosis. SKIN: Warm to touch without signs of rash. NEUROLOGIC: Alert and answering questions appropriately. Right-sided chest Port-A-Cath without signs of any complications. LT CW HDC in place General: Alert, Oriented X3, Cooperative, No acute distress Heart: Regular rate (SR), Normal S1, Normal S2, No murmurs Lungs: Clear Abdomen: Soft, No tenderness Extremities: No cyanosis, No edema Skin: No breakdown, No significant lesion Labs LABS Laboratory Tests Test 08/06/19 10:05 Sodium Level 143 mmol/L (136-145) Potassium Level 4.5 mmol/L (3.5-5.1) Chloride Level 104 mmol/L (98-107) Carbon Dioxide Level 22 mmol/L (21-32) Anion Gap 17 (6-14) Blood Urea Nitrogen 85 mg/dL (8-26) Creatinine 9.4 mg/dL (0.7-1.3) Estimated GFR (Cockcroft-Gault) 5.6 Glucose Level 99 mg/dL (70-99) Calcium Level 9.1 mg/dL (8.5-10.1) Magnesium Level 2.2 mg/dL (1.8-2.4) Assessment and Plan Assessmemt and Plan Problems Medical Problems: (1) Acute renal failure Status: Acute (2) Influenza Status: Acute (3) Pneumonia Status: Acute (4) Septic shock Status: Acute Comment Review of Relevant I have reviewed the following items renetta (where applicable) has been applied. Labs Laboratory Tests Test 08/05/19 03:00 08/05/19 08:20 08/06/19 10:05 White Blood Count 14.1 x10^3/uL (4.0-11.0) Red Blood Count 3.90 x10^6/uL (4.30-5.70) Hemoglobin 11.0 g/dL (13.0-17.5) Hematocrit 32.9 % (39.0-53.0) Mean Corpuscular Volume 84 fL (79-100) Mean Corpuscular Hemoglobin 28 pg (25-35) Mean Corpuscular Hemoglobin Concent 33 g/dL (31-37) Red Cell Distribution Width 17.2 % (11.5-14.5) Platelet Count 211 x10^3/uL (140-400) Neutrophils (%) (Auto) 86 % (31-73) Lymphocytes (%) (Auto) 5 % (24-48) Monocytes (%) (Auto) 8 % (0-9) Eosinophils (%) (Auto) 1 % (0-3) Basophils (%) (Auto) 0 % (0-3) Neutrophils # (Auto) 12.2 x10^3/uL (1.8-7.7) Lymphocytes # (Auto) 0.7 x10^3/uL (1.0-4.8) Monocytes # (Auto) 1.1 x10^3/uL (0.0-1.1) Eosinophils # (Auto) 0.1 x10^3/uL (0.0-0.7) Basophils # (Auto) 0.0 x10^3/uL (0.0-0.2) Sodium Level 142 mmol/L (136-145) 143 mmol/L (136-145) Potassium Level 4.2 mmol/L (3.5-5.1) 4.5 mmol/L (3.5-5.1) Chloride Level 102 mmol/L (98-107) 104 mmol/L (98-107) Carbon Dioxide Level 26 mmol/L (21-32) 22 mmol/L (21-32) Anion Gap 14 (6-14) 17 (6-14) Blood Urea Nitrogen 65 mg/dL (8-26) 85 mg/dL (8-26) Creatinine 7.3 mg/dL (0.7-1.3) 9.4 mg/dL (0.7-1.3) Estimated GFR (Cockcroft-Gault) 7.5 5.6 Glucose Level 111 mg/dL (70-99) 99 mg/dL (70-99) Calcium Level 9.0 mg/dL (8.5-10.1) 9.1 mg/dL (8.5-10.1) Phosphorus Level 6.8 mg/dL (2.6-4.7) Albumin 2.7 g/dL (3.4-5.0) Prothrombin Time 15.9 SEC (11.7-14.0) Prothromb Time International Ratio 1.3 (0.8-1.1) Activated Partial Thromboplast Time 30 SEC (24-38) Urine Random Creatinine 134.6 mg/dL (Not Establ.) Urine Random Total Protein < 6.0 mg/dL (Not Establ.) Magnesium Level 2.2 mg/dL (1.8-2.4) Laboratory Tests Test 08/06/19 10:05 Sodium Level 143 mmol/L (136-145) Potassium Level 4.5 mmol/L (3.5-5.1) Chloride Level 104 mmol/L (98-107) Carbon Dioxide Level 22 mmol/L (21-32) Anion Gap 17 (6-14) Blood Urea Nitrogen 85 mg/dL (8-26) Creatinine 9.4 mg/dL (0.7-1.3) Estimated GFR (Cockcroft-Gault) 5.6 Glucose Level 99 mg/dL (70-99) Calcium Level 9.1 mg/dL (8.5-10.1) Magnesium Level 2.2 mg/dL (1.8-2.4) Microbiology 08/05/19 Blood Culture - Preliminary, Resulted NO GROWTH AFTER 1 DAY Medications Current Medications Ceftriaxone Sodium (Rocephin) 1 gm 1X ONCE IVP Last administered on 07/30/19at 19:35; Start 07/30/19 at 19:30; Stop 07/30/19 at 19:31; Status DC Sodium Chloride 1,000 ml @ 1,000 mls/hr 1X ONCE IV Last administered on 07/30/19at 19:31; Start 07/30/19 at 19:30; Stop 07/30/19 at 20:29; Status DC Ondansetron HCl (Zofran) 4 mg 1X ONCE IVP Last administered on 07/30/19at 19:34; Start 07/30/19 at 19:30; Stop 07/30/19 at 19:31; Status DC Norepinephrine Bitartrate 8 mg/ Dextrose 258 ml @ 15.383 mls/ hr 1X ONCE IV Last administered on 07/30/19at 20:55; Start 07/30/19 at 20:30; Stop 07/31/19 at 13:16; Status DC Sodium Chloride 2,190 ml @ 2,190 mls/hr Q1H IV Last administered on 07/30/19at 21:39; Start 07/30/19 at 21:30; Stop 07/30/19 at 21:40; Status DC Vancomycin HCl (Vanco Per Pharmacy) 1 each PRN DAILY PRN MC SEE COMMENTS Last administered on 07/31/19at 05:38; Start 07/30/19 at 21:30; Stop 07/31/19 at 09:56; Status DC Levofloxacin/ Dextrose 150 ml @ 100 mls/hr 1X ONCE IV Last administered on 07/30/19at 22:02; Start 07/30/19 at 22:00; Stop 07/30/19 at 23:29; Status DC Sodium Chloride 1,000 ml @ 1,000 mls/hr Q1H IV Last administered on 07/30/19at 22:30; Start 07/30/19 at 21:40; Stop 07/30/19 at 23:28; Status DC Vancomycin HCl 2 gm/Sodium Chloride 500 ml @ 250 mls/hr 1X ONCE IV Last administered on 07/30/19at 21:51; Start 07/30/19 at 22:00; Stop 07/30/19 at 23:59; Status DC Sodium Bicarbonate 50 meq/Dextrose 1,050 ml @ 125 mls/hr 1X ONCE IV Last administered on 07/31/19at 00:32; Start 07/30/19 at 22:30; Stop 07/31/19 at 06:53; Status DC Ondansetron HCl (Zofran) 4 mg PRN Q8HRS PRN IV NAUSEA/VOMITING 1ST CHOICE; Start 07/30/19 at 22:30; Stop 07/31/19 at 22:29; Status DC Acetaminophen (Tylenol) 650 mg PRN Q4HRS PRN PO FEVER; Start 07/30/19 at 22:30; Stop 07/31/19 at 22:29; Status DC Vancomycin HCl (Vancomycin Random Level) 1 each 1X ONCE MC ; Start 08/01/19 at 22:00; Stop 08/01/19 at 22:01; Status Cancel Piperacillin Sod/ Tazobactam Sod (Zosyn Per Pharmacy) 1 each PRN DAILY PRN MC SEE COMMENTS; Start 07/31/19 at 10:00; Stop 08/03/19 at 15:03; Status DC Piperacillin Sod/ Tazobactam Sod 2.25 gm/Sodium Chloride 50 ml @ 100 mls/hr Q8HRS IV Last administered on 08/03/19at 05:52; Start 07/31/19 at 10:00; Stop 08/03/19 at 09:25; Status DC Ringer's Solution 1,000 ml @ 100 mls/hr Q10H IV Last administered on 08/06/19at 09:41; Start 07/31/19 at 12:30 Sodium Chloride 500 ml @ 0 mls/hr QID PRN IV UO< 30cc/hr over previous 6hrs Last administered on 08/01/19at 10:16; Start 07/31/19 at 12:30 Oseltamivir Phosphate (Tamiflu) 30 mg DAILY PO ; Start 07/31/19 at 15:00; Stop 08/04/19 at 09:01; Status Cancel Oseltamivir Phosphate (Tamiflu) 30 mg 1X ONCE PO Last administered on 07/31/19at 17:29; Start 07/31/19 at 15:00; Stop 07/31/19 at 15:01; Status DC Daptomycin 500 mg/ Sodium Chloride 50 ml @ 100 mls/hr 1X ONCE IV Last administered on 07/31/19at 18:35; Start 07/31/19 at 17:30; Stop 07/31/19 at 17:59; Status DC Sodium Bicarbonate (Sodium Bicarb Adult 8.4% Syr) 50 meq Q2HR IV Last administered on 08/01/19at 13:03; Start 08/01/19 at 10:00; Stop 08/01/19 at 12:01; Status DC Albumin Human 100 ml @ 100 mls/hr TID IV Last administered on 08/02/19at 20:23; Start 08/01/19 at 09:30; Stop 08/02/19 at 21:59; Status DC Daptomycin 450 mg/ Sodium Chloride 50 ml @ 100 mls/hr Q48H IV Last administered on 08/03/19at 12:43; Start 08/01/19 at 13:00; Stop 08/04/19 at 12:33; Status DC Lisinopril (Prinivil) 10 mg DAILY PO ; Start 08/03/19 at 09:00; Status Cancel Non-Formulary Medication (Rivaroxaban (Xarelto)) 20 mg DAILY PO ; Start 08/02/19 at 17:00; Status UNV Heparin Sodium (Porcine) (Heparin Sodium) 5,000 unit Q12HR SQ Last administered on 08/06/19at 10:55; Start 08/02/19 at 21:00 Lidocaine HCl (Buffered Lidocaine 1%) 3 ml STK-MED ONCE .ROUTE ; Start 08/03/19 at 10:59; Stop 08/03/19 at 10:59; Status DC Sodium Chloride 1,000 ml @ 1,000 mls/hr Q1H PRN IV hypotension; Start 08/03/19 at 11:29; Stop 08/03/19 at 17:28; Status UNV Albumin Human 200 ml @ 200 mls/hr 1X PRN PRN IV Hypotension; Start 08/03/19 at 11:30; Stop 08/03/19 at 17:29; Status DC Sodium Chloride 1,000 ml @ 400 mls/hr Q2H30M PRN IV PATENCY; Start 08/03/19 at 11:29; Stop 08/03/19 at 23:28; Status DC Info (PHARMACY MONITORING -- do not chart) 1 each PRN DAILY PRN MC SEE COMMENTS; Start 08/03/19 at 11:30; Status Cancel Info (PHARMACY MONITORING -- do not chart) 1 each PRN DAILY PRN MC SEE COMMENTS; Start 08/03/19 at 11:30; Stop 08/03/19 at 11:39; Status DC Lidocaine HCl (Buffered Lidocaine 1%) 3 ml 1X ONCE INJ Last administered on 08/03/19at 12:09; Start 08/03/19 at 12:00; Stop 08/03/19 at 12:01; Status DC Sodium Chloride 1,000 ml @ 1,000 mls/hr Q1H PRN IV hypotension; Start 08/04/19 at 09:46; Stop 08/04/19 at 15:45; Status DC Albumin Human 200 ml @ 200 mls/hr 1X PRN PRN IV Hypotension; Start 08/04/19 at 10:00; Stop 08/04/19 at 15:59; Status DC Sodium Chloride (Normal Saline Flush) 10 ml 1X PRN PRN IV AP catheter pack; Start 08/04/19 at 10:00; Stop 08/05/19 at 09:59; Status DC Sodium Chloride (Normal Saline Flush) 10 ml 1X PRN PRN IV MACHINE [employer]ER catheter pack; Start 08/04/19 at 10:00; Stop 08/05/19 at 09:59; Status DC Sodium Chloride 1,000 ml @ 400 mls/hr Q2H30M PRN IV PATENCY; Start 08/04/19 at 09:46; Stop 08/04/19 at 21:45; Status DC Info (PHARMACY MONITORING -- do not chart) 1 each PRN DAILY PRN MC SEE COMMENTS; Start 08/04/19 at 10:00; Status UNV Info (PHARMACY MONITORING -- do not chart) 1 each PRN DAILY PRN MC SEE COMMENTS; Start 08/04/19 at 10:00 Cefazolin Sodium (Ancef) 1 gm DAILY IVP Last administered on 08/06/19at 09:41; Start 08/04/19 at 13:00 Lidocaine/ Epinephrine (LIDOCAINE 1%-EPI 1:100,000 Multi-Dose) 20 ml STK-MED ONCE .ROUTE ; Start 08/05/19 at 12:04; Stop 08/05/19 at 12:05; Status DC Lidocaine/ Epinephrine (LIDOCAINE 1%-EPI 1:100,000 Multi-Dose) 20 ml 1X ONCE SQ Last administered on 08/05/19at 12:41; Start 08/05/19 at 12:45; Stop 08/05/19 at 12:46; Status DC Metoprolol Tartrate (Lopressor Vial) 5 mg PRN Q6HRS PRN IVP TACHYCARDIA; Start 08/06/19 at 11:00 Sodium Chloride 1,000 ml @ 1,000 mls/hr Q1H PRN IV hypotension; Start 08/06/19 at 11:26; Stop 08/06/19 at 17:25 Albumin Human 200 ml @ 200 mls/hr 1X PRN PRN IV Hypotension; Start 08/06/19 at 11:30; Stop 08/06/19 at 17:29 Sodium Chloride (Normal Saline Flush) 10 ml 1X PRN PRN IV AP catheter pack; Start 08/06/19 at 11:30; Stop 08/07/19 at 11:29 Sodium Chloride (Normal Saline Flush) 10 ml 1X PRN PRN IV MACHINE [employer] catheter pack; Start 08/06/19 at 11:30; Stop 08/07/19 at 11:29 Sodium Chloride 1,000 ml @ 400 mls/hr Q2H30M PRN IV PATENCY; Start 08/06/19 at 11:26; Stop 08/06/19 at 23:25 Info (PHARMACY MONITORING -- do not chart) 1 each PRN DAILY PRN MC SEE COMMENTS; Start 08/06/19 at 11:30; Status UNV Info (PHARMACY MONITORING -- do not chart) 1 each PRN DAILY PRN MC SEE COMMENTS; Start 08/06/19 at 11:30 Active Scripts Active Reported Xarelto (Rivaroxaban) 20 Mg Tablet 20 Mg PO DAILY Lisinopril 20 Mg Tablet 10 Mg PO DAILY Vitals/I & O Vital Sign - Last 24 Hours 08/05/19 08/05/19 08/05/19 08/05/19 15:23 19:30 20:05 23:30 Temp 97.9 97.9 98.4 97.9 97.9 98.4 Pulse 100 102 101 Resp 20 17 17 B/P (MAP) 157/81 (106) 150/80 (103) 145/78 (100) Pulse Ox 94 95 94 O2 Delivery Room Air Room Air Room Air Room Air 08/06/19 08/06/19 08/06/19 08/06/19 03:30 07:15 08:30 11:13 Temp 98.4 98.5 97.9 98.4 98.5 97.9 Pulse 102 96 97 Resp 17 18 20 B/P (MAP) 153/86 (108) 169/86 (113) 155/80 (105) Pulse Ox 94 95 96 O2 Delivery Room Air Room Air Room Air Room Air Intake and Output 08/05/19 08/05/19 08/06/19 15:00 23:00 07:00 Intake Total 0 ml 200 ml 300 ml Output Total 400 ml Balance 0 ml 200 ml -100 ml Nutrition Consultation Dietary Evaluation: Recommendations by RD: Dietary education by RD, Increase Calorie Intake, Protein supplementation Comments: provided diet edcuation to pt on renal HD diet magic cup bid REC mvi and vit c per wound protocal Expected Outcomes/Goals: to meet >75% est nutr needs- goal ongoing Malnutrition Findings: Food and Nutrition Intake (Mod: <75% est energy req 7days Weight Status: Appropriate BELTRAN SHARMA MD Aug 06, 2019 13:05
--- NOTE | 2019-08-06 13:09 | SNU/HH DC ---
DISCHARGE ORDERS DISCHARGE INFORMATION: DISCHARGE DATE: Aug 06, 2019 FINAL DIAGNOSIS Problems Medical Problems: (1) Acute renal failure Status: Acute (2) Influenza Status: Acute (3) Pneumonia Status: Acute (4) Septic shock Status: Acute CONDITION ON DISCHARGE: Stable CODE STATUS: Code Status: Full LTAC: ADMIT TO LTAC: Yes POST DISCHARGE ORDERS: ACTIVITY ORDERS: Activity as tolerated WEIGHT BEARING STATUS: As tolerated BATHING ORDERS: No Tub Bath until see Dr. SCHILLING AFTER DISCHARGE: Regular WOUND/INCISION CARE: Other, see below FOLLOW-UP: PHYSICIAN FOLLOW-UP: ID, Nephrology, Hematology/Oncology Additional Instructions: Cefazolin 1 g daily Dialysis MWF TREATMENT/EQUIPMENT ORDERS: ADAPTIVE EQUIPMENT NEEDED: None INFUSION EQUIPMENT NEEDED: PICC Line RESPIRATORY EQUIPMENT NEEDED: Oxygen, BiPAP Physical Therapy For: Evalulation/Treatment Occupational Therapy For: Evaluation/Treatment DISCHARGE MEDICATIONS: Home Meds Discontinued Reported Medications Rivaroxaban (XARELTO) 20 Mg Tablet, 20 MG PO DAILY, TAB 08/02/19 Lisinopril (LISINOPRIL) 20 Mg Tablet, 10 MG PO DAILY for hypertension 09/21/18 Apixaban (ELIQUIS) 5 Mg Tablet, 5 MG PO BID for blood thinner, TAB 10/08/18 Potassium Chloride (POTASSIUM CHLORIDE ) 20 Meq Tablet.er, 20 MEQ PO DAILY for potassium, TAB.SR 10/08/18 Ondansetron Hcl (ZOFRAN) 4 Mg Tablet, 1 TAB PO Q6HRS for nausea, #20 TAB 10/08/18 Morphine Sulfate (MORPHINE SULFATE) 15 Mg Tablet, 2 MG IV Q2HR for pain, TAB 10/08/18 [eraxis] No Conflict Check, 100 MG DAILY 10/08/18 Meropenem (MEROPENEM) 500 Mg Vial, 500 MG IV Q6HRS for infection, EACH 10/08/18 Discontinued Scripts Potassium Chloride (POTASSIUM CHLORIDE) 20 Meq Tab.er.prt, 1 TAB PO DAILY, #15 TAB 0 Refills Prov:SUSANA CLOUD MD 02/07/15 BELTRAN SHARMA MD Aug 06, 2019 13:09
--- NOTE | 2019-08-06 14:17 | NUR ---
SS following up with discharge planning. Discharge orders for [facility], ; fax [phone], received. SS phoned and faxed discharge orders to [facility]. Pt will discharge today and go to [facility] at 1800 via [facility] transport, [id number]. Pt and pt's RN notified.
[2019-08-06 16:35] LABS: CALCIUM 9.1 mg/dL (8.5-10.1); CREATININE 9.4 mg/dL (0.7-1.3); GFR 5.6; POTASSIUM 4.5 mmol/L (3.5-5.1)
[2019-08-06 16:36] LABS: ALBUMIN 2.5 g/dL (3.4-5.0); PHOSPHORUS 8.3 mg/dL (2.6-4.7)
[2019-08-06 16:37] LABS: MAGNESIUM 2.2 mg/dL (1.8-2.4)
--- NOTE | 2019-08-06 17:19 | PDOC3 ---
Discharge Summary Visit Information Date of Admission: Jul 30, 2019 Date of Discharge: Aug 06, 2019 Admitting Diagnosis: Acute renal failure Final Diagnosis Problems Medical Problems: (1) Acute renal failure Status: Acute (2) Influenza Status: Acute (3) Pneumonia Status: Acute (4) Septic shock Status: Acute Brief Hospital Course Allergies Allergies Coded Allergies Type Severity Reaction Last Updated Verified No Known Drug Allergies 10/08/18 No Vital Signs Vital Signs Date Time Temp Pulse Resp B/P (MAP) Pulse Ox O2 Delivery O2 Flow Rate FiO2 08/06/19 11:13 97.9 97 20 155/80 (105) 96 Room Air 97.9 08/05/19 08:15 2.0 Lab Results Laboratory Tests Test 08/05/19 03:00 08/05/19 08:20 08/06/19 10:05 White Blood Count 14.1 x10^3/uL (4.0-11.0) Red Blood Count 3.90 x10^6/uL (4.30-5.70) Hemoglobin 11.0 g/dL (13.0-17.5) Hematocrit 32.9 % (39.0-53.0) Mean Corpuscular Volume 84 fL (79-100) Mean Corpuscular Hemoglobin 28 pg (25-35) Mean Corpuscular Hemoglobin Concent 33 g/dL (31-37) Red Cell Distribution Width 17.2 % (11.5-14.5) Platelet Count 211 x10^3/uL (140-400) Neutrophils (%) (Auto) 86 % (31-73) Lymphocytes (%) (Auto) 5 % (24-48) Monocytes (%) (Auto) 8 % (0-9) Eosinophils (%) (Auto) 1 % (0-3) Basophils (%) (Auto) 0 % (0-3) Neutrophils # (Auto) 12.2 x10^3/uL (1.8-7.7) Lymphocytes # (Auto) 0.7 x10^3/uL (1.0-4.8) Monocytes # (Auto) 1.1 x10^3/uL (0.0-1.1) Eosinophils # (Auto) 0.1 x10^3/uL (0.0-0.7) Basophils # (Auto) 0.0 x10^3/uL (0.0-0.2) Sodium Level 142 mmol/L (136-145) 143 mmol/L (136-145) Potassium Level 4.2 mmol/L (3.5-5.1) 4.5 mmol/L (3.5-5.1) Chloride Level 102 mmol/L (98-107) 104 mmol/L (98-107) Carbon Dioxide Level 26 mmol/L (21-32) 22 mmol/L (21-32) Anion Gap 14 (6-14) 17 (6-14) Blood Urea Nitrogen 65 mg/dL (8-26) 85 mg/dL (8-26) Creatinine 7.3 mg/dL (0.7-1.3) 9.4 mg/dL (0.7-1.3) Estimated GFR (Cockcroft-Gault) 7.5 5.6 Glucose Level 111 mg/dL (70-99) 99 mg/dL (70-99) Calcium Level 9.0 mg/dL (8.5-10.1) 9.1 mg/dL (8.5-10.1) Phosphorus Level 6.8 mg/dL (2.6-4.7) 8.3 mg/dL (2.6-4.7) Albumin 2.7 g/dL (3.4-5.0) 2.5 g/dL (3.4-5.0) Prothrombin Time 15.9 SEC (11.7-14.0) Prothromb Time International Ratio 1.3 (0.8-1.1) Activated Partial Thromboplast Time 30 SEC (24-38) Urine Random Creatinine 134.6 mg/dL (Not Establ.) Urine Random Total Protein < 6.0 mg/dL (Not Establ.) Magnesium Level 2.2 mg/dL (1.8-2.4) Thyroid Stimulating Hormone (TSH) 0.864 uIU/mL (0.358-3.74) Laboratory Tests Test 08/06/19 10:05 Sodium Level 143 mmol/L (136-145) Potassium Level 4.5 mmol/L (3.5-5.1) Chloride Level 104 mmol/L (98-107) Carbon Dioxide Level 22 mmol/L (21-32) Anion Gap 17 (6-14) Blood Urea Nitrogen 85 mg/dL (8-26) Creatinine 9.4 mg/dL (0.7-1.3) Estimated GFR (Cockcroft-Gault) 5.6 Glucose Level 99 mg/dL (70-99) Calcium Level 9.1 mg/dL (8.5-10.1) Phosphorus Level 8.3 mg/dL (2.6-4.7) Magnesium Level 2.2 mg/dL (1.8-2.4) Albumin 2.5 g/dL (3.4-5.0) Thyroid Stimulating Hormone (TSH) 0.864 uIU/mL (0.358-3.74) Brief Hospital Course Mr Nath is a 64 yo M PMHx infected abdominal hernia mesh associated with Prevotella bivia, history of scrotal abscess with yeast and Bacteroides, colon cancer undergoing chemotherapy at [facility], hypertension, degenerative joint disease, history of urinary tract infections p/w weakness, nausea, vomiting. He says his last treatment was a couple of weeks ago and since then has been feeling progressively weak with intermittent nausea and vomiting and increased ostomy output more than usual. He has developed a cough with some phlegm production as well. On arrival to the ER, he was hypothermic, hypotensive with bandemia and lactic acid of 2.6. Chest x-ray showed patchy bibasilar opacities and possible small left pleural effusion. He tested positive for influenza B. He was also in acute renal failure with a creatinine of 15.1 and BUN 216. He is admitted to the intensive care unit on Levophed drip. He was dosed with vancomycin, ceftriaxone, and levofloxacin. On 5L NCO2. He has a chronic abdominal wound for which he is followed by Dr. Clarke at [facility] every 3 weeks. 2/2: Patient seen and examined in the ICU. He had one of 2 bottles growing gram- positive cocci (infectious disease is following) 2/3: No Overnight events. Seen bedside. He states he is feeling better. Prof oundly weak, cannot even reposition himself in bed. No SOB or CP. Discussed need for mesh removal and port removal given bacteremia - would like to f/u at [facility] with DR Clarke instead. Risk of failure and recurrence with metastatic seeding discussed. 24: He is feeling about the same. Repeat blood cultures negative, renal function unchanged. He consents to temporary HD catheter placement for now. Still very weak, deconditioned. 2/5: Dialysis 08/05: He is still weak, port removal today with tip culture. Still short of breath. Staph aureus in blood culture. BUN and cr back up today. Plan for dialysis today. Problem list: Septic shock, present on admission Hypothermia Influenza B Acute kidney injury Colon cancer, undergoing chemotherapy Chronic abdominal wound with history of infected abdominal mesh Critically ill Plan: Cont antibiotics, dialysis [facility] Information Condition at Discharge: Improved Follow Up: Weeks Disposition/Orders: D/C to Another Facility ([facility]) No Active Prescriptions or Reported Meds BELTRAN SHARMA MD Aug 06, 2019 17:19
--- NOTE | 2019-08-06 18:20 | NUR ---
Nurse exchange report called to TANNER Moy at [facility]
== END 2019-08-06 18:10 | DRG 314 ==
LOC: ER 18:44 → 1 WEST ICU 22:41 → 6 SOUTH 08-01 20:24
PROVIDERS: ADMIT Internal Medicine; ATTEND Internal Medicine
PROC: 02HV33Z Insertion of Infusion Device into Superior Vena Cava, Percutaneous Approach (ICD-10-PCS; principal; 2019-08-03)
PROC: B548ZZA Ultrasonography of Superior Vena Cava, Guidance (ICD-10-PCS; 2019-08-03)
PROC: 0JPT3WZ Removal of Totally Implantable Vascular Access Device from Trunk Subcutaneous Tissue and Fascia, Percutaneous Approach (ICD-10-PCS; 2019-08-05)
PROC: 02PYX3Z Removal of Infusion Device from Great Vessel, External Approach (ICD-10-PCS; 2019-08-05)
DX: T80.219A Unspecified infection due to central venous catheter, initial encounter (principal); A41.01 Sepsis due to Methicillin susceptible Staphylococcus aureus; J10.00 Influenza due to other identified influenza virus with unspecified type of pneumonia; R65.21 Severe sepsis with septic shock; N17.9 Acute kidney failure, unspecified; C18.9 Malignant neoplasm of colon, unspecified; C78.00 Secondary malignant neoplasm of unspecified lung; C78.7 Secondary malignant neoplasm of liver and intrahepatic bile duct; I47.2 Ventricular tachycardia; I48.92 Unspecified atrial flutter; K56.609 Unspecified intestinal obstruction, unspecified as to partial versus complete obstruction; I12.9 Hypertensive chronic kidney disease with stage 1 through stage 4 chronic kidney disease, or unspecified chronic kidney disease; K43.5 Parastomal hernia without obstruction or gangrene; K80.20 Calculus of gallbladder without cholecystitis without obstruction; N18.9 Chronic kidney disease, unspecified; R09.02 Hypoxemia; Z80.0 Family history of malignant neoplasm of digestive organs; Z85.038 Personal history of other malignant neoplasm of large intestine; Z87.39 Personal history of other diseases of the musculoskeletal system and connective tissue; Z87.440 Personal history of urinary (tract) infections; Z90.49 Acquired absence of other specified parts of digestive tract; Z92.21 Personal history of antineoplastic chemotherapy; Z93.3 Colostomy status; Z95.828 Presence of other vascular implants and grafts; M19.90 Unspecified osteoarthritis, unspecified site; Y83.8 Other surgical procedures as the cause of abnormal reaction of the patient, or of later complication, without mention of misadventure at the time of the procedure; Y92.89 Other specified places as the place of occurrence of the external cause
CPT/HCPCS: 36415; 36556; 36590; 36600; 71045; 76770; 76937; 77001; 78582; 80053; 80069; 81001; 82550; 82570; 82805; 83605; 83735; 84100; 84145; 84156; 84443; 84484; 84550; 85007; 85025; 85027; 85379; 85610; 85730; 86704; 87040; 87070; 87077; 87205; 87340; 87804; 93005; 93306; 96361; 96365; 96366; 96368; 96374; 96375; A9540; A9558; C1769; C1892; J0690; J0696; J0878; J1644; J1956; J2405; J2543; J3370; J3490; J7030; J7040; J7120; P9046; 97530; 97535; 99291-25; G0378

== ENCOUNTER 2019-10-30 17:03 | Inpatient (IN) | payer BC ==
[~2019-10-30] VITALS: Ht 177.8 cm; Wt 88.9 kg
[~2019-10-30 17:03] MED LIST changes: -MERO500V15 IV; +MERO500V24 IV
[2019-10-30] MEDS ORDERED: IV NORMAL SALINE 1000ML BAG 1,000 ML IV ONE (17:30)
[2019-10-30 17:41] LABS: BASO % 0 % (0-3); EOS # 0.1 x10^3/uL (0.0-0.7); EOS % 1 % (0-3); HEMATOCRIT 41.5 % (39.0-53.0); HEMOGLOBIN 13.7 g/dL (13.0-17.5); LYMPH # 0.8 x10^3/uL (1.0-4.8); LYMPH % 6 % (24-48); MEAN CORPUSCULAR HEMOGLOBIN 27 pg (25-35); MEAN CORPUSCULAR HGB CONC 33 g/dL (31-37); MEAN CORPUSCULAR VOLUME 82 fL (79-100); MONO # 1.4 x10^3/uL (0.0-1.1); MONO % 10 % (0-9); NEUT # 11.5 x10^3/uL (1.8-7.7); NEUT % 83 % (31-73); PLATELET COUNT 318 x10^3/uL (140-400); RED BLOOD COUNT 5.05 x10^6/uL (4.30-5.70); RED CELL DISTRIBUTION WIDTH 14.5 % (11.5-14.5); WHITE BLOOD COUNT 13.9 x10^3/uL (4.0-11.0)
--- NOTE | 2019-10-30 17:41 | PHYS DOC ---
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 He presents via EMS after he was down in the floor unable to get up at his home for approximately 2 days. Patient states he came down the steps in a hurry and when he got down to the bottom of the steps he fell. He states he did not hit his head and really does not have any pain from the fall. He states he was just too weak to get up. He denies any fever chills or sweats. He does state that he did not have his ostomy bag on so he has been covered in stool. [] (MARRY ASUTIN DO) Review of Systems: Review of Systems: Constitutional: Denies fever or chills. [] Eyes: Denies change in visual acuity. [] HENT: Denies nasal congestion or sore throat. [] Respiratory: Denies cough or shortness of breath. [] Cardiovascular: Denies chest pain or edema. [] GI: Denies abdominal pain, nausea, vomiting, bloody stools or diarrhea he has had bowel movements but not had his colostomy bag. [] : Denies dysuria. [] Musculoskeletal: Denies back pain or joint pain. [] Integument: Denies rash. [] Neurologic: Denies headache, focal weakness or sensory changes. [] Endocrine: Denies polyuria or polydipsia. [] Lymphatic: Denies swollen glands. [] Psychiatric: Reports depression. [] (MARRY AUSTIN DO) Heart Score: Risk Factors: Risk Factors: DM, Current or recent (<one month) smoker, HTN, HLP, family history of CAD, obesity. Risk Scores: Score 0 - 3: 2.5% MACE over next 6 weeks - Discharge Home Score 4 - 6: 20.3% MACE over next 6 weeks - Admit for Clinical Observation Score 7 - 10: 72.7% MACE over next 6 weeks - Early Invasive Strategies (MARRY AUSTIN DO) Current Medications: Current Medications Medications (Trade) Dose Ordered Sig/Joseph Start Time Stop Time Status Last Admin Dose Admin Sodium Chloride 1,000 ml @ 2,000 mls/hr 1X ONCE 10/30/19 17:30 10/30/19 17:59 (MARRY AUSTIN DO) Allergies: Allergies: Allergies Coded Allergies Type Severity Reaction Last Updated Verified No Known Drug Allergies 10/08/18 No (MARRY AUSTIN DO) Physical Exam: PE: Constitutional: Frail elderly male who appears acute on chronically ill. [] HENT: Normocephalic, atraumatic, bilateral external ears normal, oropharynx is dry, [] Eyes: PERRLA, EOMI, conjunctiva normal, no discharge. [] Neck: Normal range of motion, no tenderness, supple, no stridor. [] Cardiovascular: Tachycardic no obvious murmur [] Lungs & Thorax: Bilateral breath sounds clear to auscultation [] Abdomen: Abdomen is soft good bowel sounds his stoma is leaking brown stool there is also a wound that is likely from his Ivan's that is packed . [] Skin: Warm and dry no rash or ecchymosis. [] Back: No tenderness, no CVA tenderness. [] Extremities: No tenderness, no cyanosis, no clubbing, ROM intact, no edema. [] Neurologic: Alert and oriented X 3, normal motor function, normal sensory function, no focal deficits noted. [] Psychologic: Very depressed affect. [] (MARRY AUSTIN DO) EKG: EKG: [EKG: Sinus tachycardia rate of [address] ischemic [address]-T changes] (MARRY AUSTIN DO) Radiology/Procedures: Radiology/Procedures: [] (MARRY AUSTIN DO) Impression: PROCEDURE: CT HEAD WO CONTRAST EXAM: CT Head without IV contrast INDICATION: Altered mental status TECHNIQUE: Multi-detector row CT images were obtained of the head without the use of IV contrast. All CT scans performed at this facility utilize dose optimization techniques as appropriate to the exam, including the following: Automated exposure control and adjustment of the mA and/or KV according to patient size (this includes techniques or standardized protocols for targeted exams where dose is indication/reason for exam). COMPARISON: None FINDINGS: BRAIN PARENCHYMA: No evidence of acute intraparenchymal hemorrhage or infarct. Large area of vasogenic edema with mild associated mass effect in the superior right frontal lobe is present. VENTRICLES & EXTRA-AXIAL SPACES: Ventricles are within normal limits. Basilar cisterns are patent. No pathologic extra-axial fluid collection or mass. ORBITS: Orbital contents are unremarkable. SINUSES: Visualized paranasal sinuses and mastoid air cells are clear. OSSEOUS & SOFT TISSUES: Calvarium and skull base are intact. IMPRESSION: Large area of edema in the superior right frontal lobe ; differential consideration of an underlying intra-axial mass versus edema from cerebritis. Consider MRI with and without IV contrast in further evaluation. FOR INTERNAL CODING PURPOSES Critical result: Findings discussed with Dr. Quezada by telephone at 10/30/2019 7:41 PM. RESULT CODE: (C) Electronically signed by: Kar Hopkins MD (10/30/2019 7:41 PM) [facility] [place] DICTATED and SIGNED BY: KRA HOPKINS MD DATE: 10/30/191940 (JORGE QUEZADA Jr., DO) Course & Med Decision Making: Course & Med Decision Making Pertinent Labs and Imaging studies reviewed. (See chart for details) [] (MARRY AUSTIN DO) Dragon Disclaimer: Dragon Disclaimer: This electronic medical record was generated, in whole or in part, using a voice recognition dictation system. (MARRY AUSTIN DO) Departure Departure Impression: Primary Impression: Cerebral mass Additional Impressions: Left-sided weakness [id number] kidney injury Qualified Codes: N17.9 - Acute kidney failure, unspecified; N18.9 - Chronic kidney disease, unspecified Elevated troponin I level Hypokalemia Disposition: ADMITTED INPATIENT Admitting Physician: HIMEstevan (JORGE QUEZADA Jr., DO) Condition: GUARDED Referrals: NO PCP (PCP) Scripts No Active Prescriptions or Reported Meds MARRY AUSTIN DO October 30, 2019 17:41 JORGE QUEZADA Jr., DO October 30, 2019 19:46
[2019-10-30 17:54] LABS: PROTHROMBIN TIME PATIENT 15.6 SEC (11.7-14.0)
[2019-10-30 17:55] LABS: ALBUMIN 3.2 g/dL (3.4-5.0); ALBUMIN/GLOBULIN RATIO 0.6 (1.0-1.7); CALCIUM 10.1 mg/dL (8.5-10.1); GFR 33.6; MAGNESIUM 2.8 mg/dL (1.8-2.4); TOTAL BILIRUBIN 0.5 mg/dL (0.2-1.0); TOTAL PROTEIN 8.2 g/dL (6.4-8.2)
[2019-10-30 17:58] LABS: BASE EXCESS ABG 0 mmol/L (-3-3); FIO2 ABG 21; HCO3 ABG 23 mmol/L (21-28); PCO2 ABG 34 mmHg (35-46); PO2 ABG 72 mmHg (65-108); SAT O2 ABG 94 % (92-99)
[2019-10-30 18:00] LABS: POTASSIUM 2.7 mmol/L (3.5-5.1)
[2019-10-30] MEDS ORDERED: POTASSIUM CHLORIDE 20MEQ 100 ML IV ONE (18:30)
[2019-10-30] MEDS ORDERED: fentaNYL PF VIAL 100 MCG/2 ML VIAL IVP ONE (18:30)
[2019-10-30] MEDS ORDERED: fentaNYL PF VIAL 100 MCG/2 ML VIAL ONE (18:39)
[2019-10-30 18:52] LABS: BILIRUBIN,URINE NEGATIVE (NEG); CLARITY,URINE CLOUDY; COLOR,URINE YELLOW; NITRITE,URINE NEGATIVE (NEG); PH,URINE 5.5 (<5.0-8.0); PROTEIN,URINE >=300 mg/dL (NEG-TRACE); UROBILINOGEN,URINE 0.2 mg/dL (0.2 mg/dL)
[2019-10-30 18:59] LABS: AMORPHOUS SEDIMENT,UR PRESENT /HPF; BACTERIA,URINE 0 /HPF (0-FEW); HYALINE CASTS, URINE MODERATE /HPF; RBC,URINE 0 /HPF (0-2); WBC,URINE 0 /HPF (0-4)
[2019-10-30 19:00] LABS: SQUAMOUS EPITHELIAL CELL,UR OCC /LPF
[2019-10-30] MEDS ORDERED: IV 1/2 NORMAL SALINE 1,000 ML IV STA (19:06)
[2019-10-30] MEDS ORDERED: 0.9 % SODIUM CHLORIDE 10 ML DISP.SYRIN. IV PRN (19:15)
--- NOTE | 2019-10-30 19:43 | RAD ---
EXAM: CT Head without IV contrast INDICATION: Altered mental status TECHNIQUE: Multi-detector row CT images were obtained of the head without the use of IV contrast. All CT scans performed at this facility utilize dose optimization techniques as appropriate to the exam, including the following: Automated exposure control and adjustment of the mA and/or KV according to patient size (this includes techniques or standardized protocols for targeted exams where dose is indication/reason for exam). COMPARISON: None FINDINGS: BRAIN PARENCHYMA: No evidence of acute intraparenchymal hemorrhage or infarct. Large area of vasogenic edema with mild associated mass effect in the superior right frontal lobe is present. VENTRICLES & EXTRA-AXIAL SPACES: Ventricles are within normal limits. Basilar cisterns are patent. No pathologic extra-axial fluid collection or mass. ORBITS: Orbital contents are unremarkable. SINUSES: Visualized paranasal sinuses and mastoid air cells are clear. OSSEOUS & SOFT TISSUES: Calvarium and skull base are intact. IMPRESSION: Large area of edema in the superior right frontal lobe ; differential consideration of an underlying intra-axial mass versus edema from cerebritis. Consider MRI with and without IV contrast in further evaluation. FOR INTERNAL CODING PURPOSES Critical result: Findings discussed with Dr. Quezada by telephone at 10/30/2019 7:41 PM. RESULT CODE: (C) Electronically signed by: Bharti Hopkins MD (10/30/2019 7:41 PM) [facility] [place]
[2019-10-30] MEDS ORDERED: LABETALOL 20 MG/4 ML DISP.SYRIN. IVP ONE (20:00)
[2019-10-30] MEDS ORDERED: DEXAMETHASONE SOD PHOS 20 MG/5 ML VIAL. IV ONE (20:15)
[2019-10-30 20:30] VITALS: BP 204/106
[2019-10-30] MEDS ORDERED: MORPHINE SULFATE 2 MG/ML VIAL. IV PRN (20:30)
[2019-10-30] MEDS ORDERED: ACETAMINOPHEN 325 MG TABLET. PO PRN (20:30)
[2019-10-30] MEDS ORDERED: DEXAMETHASONE SOD PHOS 20 MG/5 ML VIAL. IV SCH (20:30)
[2019-10-30] MEDS ORDERED: ONDANSETRON PF 4 MG/2 ML VIAL. IV PRN (20:30)
[2019-10-30 22:30] VITALS: BP 204/106
[2019-10-30 22:45] VITALS: BP 199/110
[2019-10-30] MEDS: DEXAMETHASONE SOD PHOS 4 MG/ML VIAL IV SCH ×2 (22:55→23:08)
[2019-10-30 23:00] VITALS: BP 177/123
[2019-10-30] MEDS: IV NORMAL SALINE 1000ML BAG 1,000 ML IV SCH (23:08)
[2019-10-30 23:15] VITALS: BP 206/116
[2019-10-31] VITALS (33 sets, daily range): BP systolic 123–222; BP diastolic 65–170
--- NOTE | 2019-10-31 01:00 | NUR ---
Pt admitted to ICU room 111 at approx 2230. Pt brought by one RN on bed, transferred to ICU bed with 2x assistance. Pt on RA, lungs CTA. BP elevated; 204/106 on admission. Call placed to Dr. Rubio to notify of elevated BP. New IV was placed on admission, as previously placed IV was no longer patent. Pt alert and oriented x4, this RN did notice left sided facial droop. One-sided weakness had been previously noted by ED. Received call back from Dr. Rubio with order for Cardene gtt. Also received order for Clonidine patch. Orders entered into system and administered. Cardene gtt titrated per protocol to keep SBP less than 160. Pt has wound to abd, approx 5x2cm in size, from previous surgical site that did not heal properly. Wound pictured and covered with gauze. Pt is currently resting with eyes closed and call light within reach.
[2019-10-31] MEDS ORDERED: cloNIDine TTS-2 1 PATCH PATCH TD ONE (01:15)
[2019-10-31] MEDS: DEXAMETHASONE SOD PHOS 4 MG/ML VIAL IV SCH ×4 (03:46→23:51)
[2019-10-31 04:31] LABS: BASO % 0 % (0-3); EOS % 0 % (0-3); HEMATOCRIT 42.9 % (39.0-53.0); HEMOGLOBIN 13.8 g/dL (13.0-17.5); LYMPH # 0.5 x10^3/uL (1.0-4.8); LYMPH % 4 % (24-48); MEAN CORPUSCULAR HEMOGLOBIN 27 pg (25-35); MEAN CORPUSCULAR HGB CONC 32 g/dL (31-37); MEAN CORPUSCULAR VOLUME 83 fL (79-100); MONO # 0.3 x10^3/uL (0.0-1.1); MONO % 3 % (0-9); NEUT # 10.4 x10^3/uL (1.8-7.7); NEUT % 93 % (31-73); PLATELET COUNT 282 x10^3/uL (140-400); RED BLOOD COUNT 5.16 x10^6/uL (4.30-5.70); RED CELL DISTRIBUTION WIDTH 15.1 % (11.5-14.5); WHITE BLOOD COUNT 11.2 x10^3/uL (4.0-11.0)
[2019-10-31 04:59] LABS: CALCIUM 9.6 mg/dL (8.5-10.1); CREATININE 1.6 mg/dL (0.7-1.3); GFR 43.5; POTASSIUM 3.2 mmol/L (3.5-5.1)
[2019-10-31] MEDS: IV NORMAL SALINE 1000ML BAG 1,000 ML IV SCH (07:00)
[2019-10-31] MEDS ORDERED: HYDR12.575 PO (08:09)
[2019-10-31] MEDS ORDERED: METO25TA4 PO (08:09)
[2019-10-31 09:20] LABS: % BANDS 10 % (0-9); % LYMPHS 3 % (24-48); % METAS 1 % (0-0); % MONOS 2 % (0-10); % SEGS 84 % (35-66)
[2019-10-31 09:21] LABS: ANISOCYTOSIS SLIGHT; PLT ESTIMATE ADEQUATE (ADEQUATE)
[2019-10-31] MEDS: METOPROLOL TART IMMED RELEASE 25 MG TABLET. PO SCH ×2 (10:00→19:34)
--- NOTE | 2019-10-31 10:07 | PDOC ---
Provider Note Provider Note History and physical [id number] ANTONIA ENCISO MD October 31, 2019 10:07
--- NOTE | 2019-10-31 10:45 | HP ---
ADMIT DATE: 10/30/2019 HISTORY OF PRESENT ILLNESS: This patient is a 64-year-old man who has not had a continuity source of primary care as he has mostly been visiting with Dr. Thang Haji, Oncology at [facility], for his stage IV colon cancer. The patient is well known to the [facility] hospitalist service with multiple admissions over the last couple of years with severe complications of his extensive underlying multiple morbidity. His last admission was in late 06/2019 with sepsis secondary to infected abdominal mesh and influenza B. The patient discharged home and he tells me he has been functioning fine since then, though he is a difficult historian due to his excessive talkativeness about issues that are not necessarily relevant to his presentation. The patient was brought in to the Emergency Department late yesterday afternoon via 911 after his neighbors who lives just next to him in the [facility] found him down on the ground at the bottom of the stairs. The patient tells me that he was rushing to get the door as the neighbors were knocking loudly and he does not believe that he laid on the floor for any length of time. Again, he is a difficult historian as his main interest in discussion is talking about his extensive remodeling that he is doing to his home. The patient tells me that his main spokesman and durable power of appraisal specialist is his sister Tabitha, but he does not have any information on how to be in touch with her. I cannot find that information in the record here. The patient is alert and oriented to person, place and time and is able to currently engage in decision making. He does tell me that he has wanted a full resuscitation at least an attempt at getting back to his baseline functioning. He tells me that his quality of life is good and he loves puttering around his house. He does not remember what happened prior to the fall, but he has felt that his strength has been lessening over the last several weeks. He denies any fever, chills, cough, congestion, change in his ostomy output, nausea, vomiting or any other new specific constitutional symptoms. Somehow when he came through the Emergency Department, it was decided to set him up for a COVID-19 rule out and so I saw him in the Intensive Care Unit [facility] bed 11 this morning. All other systems are reviewed and are negative. PAST MEDICAL HISTORY: 1. Stage IV colon cancer with known metastases to lung and liver and now a question of a right frontal brain mass that was the most likely culprit and leading to this fall. 2. 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 3. 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 4. History of kidney failure with a baseline creatinine that stays normal. His creatinine here is 1.6. 5. Hypertension. MEDICATIONS: Please see the medication reconciliation form. SOCIAL HISTORY: The patient is single. He lives independently in his own home. He tells me that his neighbors check on him regularly and have been helping him quite a bit. During intermediate in place, he has been able to get the food he needs and has not felt isolated. The patient is a full code. He denies any tobacco, alcohol or illicit drugs. FAMILY HISTORY: Reviewed with limitation given the difficulties of the history taking this morning, but appears to be unrelated to his current presentation. PHYSICAL EXAMINATION: VITAL SIGNS: Reviewed since admission and are notable for that the patient has been afebrile, blood pressure initially was quite high, now at 150/80, heart rate is in the one-teens. He is breathing comfortably and saturating 95-96% on room air. GENERAL: The patient is a very chatty 64-year-old man who is very difficult to redirect in conversation. He is alert and oriented x 3 and in no acute distress. He does not appear particularly anxious. HEENT: Unremarkable for acute abnormality. NECK: Soft and supple. No adenopathy or thyromegaly noted. LUNGS: Clear to auscultation. HEART: S1, S2 normal, tachycardic. No murmurs or gallops are noted. ABDOMEN: Soft, nontender, nondistended. No masses or organomegaly noted. EXTREMITIES: Unremarkable for acute abnormality. Strength is full throughout. LABORATORY DATA AND OTHER STUDIES: Admission white count is 13.9, now 11.2 this morning, hemoglobin is 13.8, platelet count is 282. Chemistry panel is notable for a potassium level of 3.2. Serum creatinine is 1.6. Serum sodium is markedly elevated at 157. TSH is 0.26. Serum calcium is 9.6, INR is mildly elevated at 1.3. Blood gas is normal. Urinalysis is clear. CT head is notable for a large area of edema in the superior right frontal lobe without obvious mass. Differential diagnosis is an underlying intraaxial mass versus edema from cerebritis. MRI with and without contrast is recommended. EKG does not appear to have been done. ASSESSMENT AND PLAN: A 64-year-old man with advanced colon cancer, admitted after a fall at home, found to have significant hypernatremia and right-sided frontal edema of his brain. Certainly, we need that MRI to be done. Given the coronavirus disease-19 pandemic and the unknown exposures in this man with potential periods of altered mental status given the brain findings, certainly it is reasonable to rule out coronavirus disease-19. Hopefully, that test will return as soon as possible and we can move him off of the COVID Unit if negative. He needs an MR brain. I will consult Renal for help with the electrolyte dyscrasia. 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 He may be a good candidate for demeclocycline and I will ask them to guide us in that decision making. We can use SCDs for deep venous thrombosis prophylaxis as he is a poor candidate for Lovenox given his extensive cancer. We will start gentle hydration with half normal saline and reassess electrolytes later on today. Inpatient status is most appropriate as we anticipate a length of stay of at least 2-3 midnights while we work this through. We will need to determine who his decision making person will be. It sounds like his sister will best serve in that capacity. His elevated troponin may be from the stress-induced tachycardia. Given that the patient has wanted aggressive multifaceted care including a full code if needed. We will consult Cardiology for their input as well. We will hold off on consulting Oncology given that he has an oncologist at another facility, so if his stay becomes prolonged and decision making regarding his end of life care is challenging, we will ask Dr. Crowley to help as well. Subspecialty support is appreciated. ANTONIA ENCISO MD DR: SAVANAH/you JOB#: [id number] / [id number] THANG Leal MD MTDD
[2019-10-31] MEDS ORDERED: IV 1/2 NORMAL SALINE 1,000 ML IV SCH (11:00)
--- NOTE | 2019-10-31 11:51 | PDOC2 ---
CONSULT Date of Consult Date of Consult DATE: 10/31/19 TIME: 11:36 Reason for Consult Reason for Consult: THAD Source Source: Chart review History of Present Illness Reason for Visit: Pt is a 64-year-old CM , he follows with Oncology at [facility], for his stage IV colon cancer. He has had multiple hospitalizations , most recent in late 06/2019 with sepsis secondary to infected abdominal mesh and influenza B. He was initiated on HD for THAD sec to ATN and was transferred to [facility]. His Kidney function improved and he was able to come off Dialysis He presents via EMS after he was down in the floor unable to get up at his home for approximately 2 days. Patient states he came down the steps in a hurry and when he got down to the bottom of the steps he fell. He states he did not hit his head and really does not have any pain from the fall. He states he was just too weak to get up. He denies any fever chills or sweats. He does state that he did not have his ostomy bag on so he has been covered in stool. Denies any N/V/D. No CP, No Urinary complaints. He is apoor historian and doesn't stays focused(his baseline - same at the last hospitalization) Past Medical History Cardiovascular: HTN Pulmonary: Other CENTRAL NERVOUS SYSTEM: Other GI: Other Heme/Onc: Cancer, Other Hepatobiliary: Cholelithiasis, Other Psych: No pertinent hx Musculoskeletal: Osteoarthritis Rheumatologic: No pertinent hx Infectious disease: No pertinent hx Renal/: UTI, Other Endocrine: No pertinent hx Past Surgical History Past Surgical History: Hernia Repair Family History Family History: Adopted Social History ALCOHOL: none Drugs: None Lives: Alone Current Problem List Problem List Problems Medical Problems: (1) [id number] kidney injury Status: Acute (2) Cerebral mass Status: Acute (3) Elevated troponin I level Status: Acute (4) Hypokalemia Status: Acute (5) Left-sided weakness Status: Acute Current Medications Current Medications Current Medications Sodium Chloride 1,000 ml @ 2,000 mls/hr 1X ONCE IV Last administered on 10/30/19at 18:13; Start 10/30/19 at 17:30; Stop 10/30/19 at 17:59; Status DC Potassium Chloride/Water 100 ml @ 50 mls/hr 1X ONCE IV Last administered on 10/30/19at 18:20; Start 10/30/19 at 18:30; Stop 10/30/19 at 20:29; Status DC Fentanyl Citrate (Fentanyl 2ml Vial) 50 mcg 1X ONCE IVP Last administered on 10/30/19at 18:41; Start 10/30/19 at 18:30; Stop 10/30/19 at 18:39; Status DC Fentanyl Citrate (Fentanyl 2ml Vial) 100 mcg STK-MED ONCE .ROUTE ; Start 10/30/19 at 18:39; Stop 10/30/19 at 18:40; Status DC Sodium Chloride (Normal Saline Flush) 3 ml QSHIFT PRN IV AFTER MEDS AND BLOOD DRAWS; Start 10/30/19 at 19:15 Sodium Chloride 1,000 ml @ 999 mls/hr Q1H1M STAT IV Last administered on 10/30/19at 19:42; Start 10/30/19 at 19:06; Stop 10/30/19 at 20:06; Status DC Labetalol HCl (Normodyne Iv Push) 10 mg 1X ONCE IVP Last administered on 10/30/19at 19:55; Start 10/30/19 at 20:00; Stop 10/30/19 at 20:01; Status DC Dexamethasone Sodium Phosphate (Decadron) 10 mg 1X ONCE IV Last administered on 10/30/19at 20:12; Start 10/30/19 at 20:15; Stop 10/30/19 at 20:16; Status DC Ondansetron HCl (Zofran) 4 mg PRN Q8HRS PRN IV NAUSEA/VOMITING; Start 10/30/19 at 20:30; Stop 10/31/19 at 20:29 Morphine Sulfate (Morphine Sulfate) 2 mg PRN Q2HR PRN IV PAIN; Start 10/30/19 at 20:30; Stop 10/31/19 at 20:29 Sodium Chloride 1,000 ml @ 125 mls/hr Q8H IV Last administered on 10/30/19at 23:08; Start 10/30/19 at 20:19; Stop 10/31/19 at 10:06; Status DC Acetaminophen (Tylenol) 650 mg PRN Q4HRS PRN PO FEVER > 100.3'F; Start 10/30/19 at 20:30; Stop 10/31/19 at 20:29 Dexamethasone Sodium Phosphate (Decadron) 4 mg Q6H IV ; Start 10/30/19 at 20:30; Stop 10/30/19 at 22:55; Status DC Dexamethasone Sodium Phosphate (Decadron) 4 mg Q6H IV Last administered on 10/31/19at 10:28; Start 10/30/19 at 22:55 Nicardipine HCl 50 mg/Sodium Chloride 250 ml @ 25 mls/hr CONT PRN IV SEE I/O RECORD Last administered on 10/31/19at 07:58; Start 10/31/19 at 00:45 Clonidine HCl (Catapres Tts-2) 1 patch 1X ONCE TD Last administered on 10/31/19at 01:31; Start 10/31/19 at 01:15; Stop 10/31/19 at 01:16; Status DC Metoprolol Tartrate (Lopressor) 25 mg BID PO Last administered on 10/31/19at 10:00; Start 10/31/19 at 10:00 Sodium Chloride 1,000 ml @ 100 mls/hr Q10H IV Last administered on 10/31/19at 11:00; Start 10/31/19 at 11:00 Active Scripts Active Reported Metoprolol Tartrate 25 Mg Tablet 1 Tab PO BID Hydrochlorothiazide Capsule (Hydrochlorothiazide) 12.5 Mg Capsule 12.5 Mg PO DAILY Allergies Allergies: Coded Allergies: No Known Drug Allergies (Unverified , 10/08/18) ROS Review of System Per HPI , rest negative Physical Exam Physical Exam GENERAL: NAD HEENT: Oropharynx moist NECK: Supple. LUNGS: Diminished at bases , nonlabored. HEART: S1, S2 regular. ABDOMEN: Soft, nontender, ostomy +. EXTREMITIES: No gross edema or cyanosis. SKIN: No signs of rash. NEUROLOGIC: Alert and awake, Chronic mild tremors [place] + Vital Signs Vital Signs Date Time Temp Pulse Resp B/P (MAP) Pulse Ox O2 Delivery O2 Flow Rate FiO2 10/31/19 10:00 120 144/73 10/31/19 08:00 Room Air 10/31/19 06:00 20 95 10/31/19 04:00 99.4 99.4 Assessment & Plan Acute kidney injury:Suspect ATN 2/2 UA unremarkable, good uop Currently no indication for ELASTIC CUTTER Supportive care, Strict I/O, IVF , Avoid nephrotoxins Hx of THAD in Jul 2019 - needing HD After transfer to [facility]- kidney function improved , Pt came off Dialysis Required HD in 2019 as well , baseline Cr has been normal Hypernatremia- Monitor, continue IVF Fall at home - right-sided frontal edema of his brain. Per Neurology/NS Hx of infected abdominal hernia mesh history of scrotal abscess Colon cancer undergoing chemotherapy at [facility]- Defer to Hem/onc history of urinary tract infections COVID-19 pending Chronic abdominal wound for which he is followed by Dr. Clarke at [facility] Labs Labs Laboratory Tests Test 10/30/19 17:28 10/30/19 17:30 10/30/19 18:40 10/30/19 21:00 O2 Saturation 94 % (92-99) Arterial Blood pH 7.44 (7.35-7.45) Arterial Blood pCO2 at Patient Temp 34 mmHg (35-46) Arterial Blood pO2 at Patient Temp 72 mmHg (65-108) Arterial Blood HCO3 23 mmol/L (21-28) Arterial Blood Base Excess 0 mmol/L (-3-3) FiO2 21 White Blood Count 13.9 x10^3/uL (4.0-11.0) Red Blood Count 5.05 x10^6/uL (4.30-5.70) Hemoglobin 13.7 g/dL (13.0-17.5) Hematocrit 41.5 % (39.0-53.0) Mean Corpuscular Volume 82 fL (79-100) Mean Corpuscular Hemoglobin 27 pg (25-35) Mean Corpuscular Hemoglobin Concent 33 g/dL (31-37) Red Cell Distribution Width 14.5 % (11.5-14.5) Platelet Count 318 x10^3/uL (140-400) Neutrophils (%) (Auto) 83 % (31-73) Lymphocytes (%) (Auto) 6 % (24-48) Monocytes (%) (Auto) 10 % (0-9) Eosinophils (%) (Auto) 1 % (0-3) Basophils (%) (Auto) 0 % (0-3) Neutrophils # (Auto) 11.5 x10^3/uL (1.8-7.7) Lymphocytes # (Auto) 0.8 x10^3/uL (1.0-4.8) Monocytes # (Auto) 1.4 x10^3/uL (0.0-1.1) Eosinophils # (Auto) 0.1 x10^3/uL (0.0-0.7) Basophils # (Auto) 0.0 x10^3/uL (0.0-0.2) Prothrombin Time 15.6 SEC (11.7-14.0) Prothromb Time International Ratio 1.3 (0.8-1.1) Sodium Level 154 mmol/L (136-145) Potassium Level 2.7 mmol/L (3.5-5.1) Chloride Level 113 mmol/L (98-107) Carbon Dioxide Level 29 mmol/L (21-32) Anion Gap 12 (6-14) Blood Urea Nitrogen 59 mg/dL (8-26) Creatinine 2.0 mg/dL (0.7-1.3) Estimated GFR (Cockcroft-Gault) 33.6 BUN/Creatinine Ratio 30 (6-20) Glucose Level 153 mg/dL (70-99) Lactic Acid Level 2.1 mmol/L (0.4-2.0) 1.2 mmol/L (0.4-2.0) Calcium Level 10.1 mg/dL (8.5-10.1) Magnesium Level 2.8 mg/dL (1.8-2.4) Total Bilirubin 0.5 mg/dL (0.2-1.0) Aspartate Amino Transf (AST/SGOT) 39 U/L (15-37) Alanine Aminotransferase (ALT/SGPT) 28 U/L (16-63) Alkaline Phosphatase 137 U/L (46-116) Creatine Kinase 613 U/L (39-308) Troponin I Quantitative 0.153 ng/mL (0.000-0.055) Total Protein 8.2 g/dL (6.4-8.2) Albumin 3.2 g/dL (3.4-5.0) Albumin/Globulin Ratio 0.6 (1.0-1.7) Lipase 342 U/L (73-393) Thyroid Stimulating Hormone (TSH) 0.265 uIU/mL (0.358-3.74) Urine Collection Type Unknown Urine Color Yellow Urine Clarity Cloudy Urine pH 5.5 (<5.0-8.0) Urine Specific Rochert 1.020 (1.000-1.030) Urine Protein >=300 mg/dL (NEG-TRACE) Urine Glucose (UA) Negative mg/dL (NEG) Urine Ketones (Stick) Negative mg/dL (NEG) Urine Blood Moderate (NEG) Urine Nitrite Negative (NEG) Urine Bilirubin Negative (NEG) Urine Urobilinogen Dipstick 0.2 mg/dL (0.2 mg/dL) Urine Leukocyte Esterase Small (NEG) Urine RBC 0 /HPF (0-2) Urine WBC 0 /HPF (0-4) Urine Squamous Epithelial Cells Occ /LPF Urine Amorphous Sediment Present /HPF Urine Bacteria 0 /HPF (0-FEW) Urine Hyaline Casts Moderate /HPF Urine Mucus Slight /LPF Test 10/31/19 00:01 10/31/19 02:45 10/31/19 03:45 Troponin I Quantitative 0.166 ng/mL (0.000-0.055) 0.119 ng/mL (0.000-0.055) White Blood Count 11.2 x10^3/uL (4.0-11.0) Red Blood Count 5.16 x10^6/uL (4.30-5.70) Hemoglobin 13.8 g/dL (13.0-17.5) Hematocrit 42.9 % (39.0-53.0) Mean Corpuscular Volume 83 fL (79-100) Mean Corpuscular Hemoglobin 27 pg (25-35) Mean Corpuscular Hemoglobin Concent 32 g/dL (31-37) Red Cell Distribution Width 15.1 % (11.5-14.5) Platelet Count 282 x10^3/uL (140-400) Neutrophils (%) (Auto) 93 % (31-73) Lymphocytes (%) (Auto) 4 % (24-48) Monocytes (%) (Auto) 3 % (0-9) Eosinophils (%) (Auto) 0 % (0-3) Basophils (%) (Auto) 0 % (0-3) Neutrophils # (Auto) 10.4 x10^3/uL (1.8-7.7) Lymphocytes # (Auto) 0.5 x10^3/uL (1.0-4.8) Monocytes # (Auto) 0.3 x10^3/uL (0.0-1.1) Eosinophils # (Auto) 0.0 x10^3/uL (0.0-0.7) Basophils # (Auto) 0.0 x10^3/uL (0.0-0.2) Segmented Neutrophils % 84 % (35-66) Band Neutrophils % 10 % (0-9) Lymphocytes % 3 % (24-48) Monocytes % 2 % (0-10) Metamyelocytes % 1 % (0-0) Platelet Estimate Adequate (ADEQUATE) Anisocytosis Slight Sodium Level 157 mmol/L (136-145) Potassium Level 3.2 mmol/L (3.5-5.1) Chloride Level 117 mmol/L (98-107) Carbon Dioxide Level 26 mmol/L (21-32) Anion Gap 14 (6-14) Blood Urea Nitrogen 48 mg/dL (8-26) Creatinine 1.6 mg/dL (0.7-1.3) Estimated GFR (Cockcroft-Gault) 43.5 Glucose Level 188 mg/dL (70-99) Calcium Level 9.6 mg/dL (8.5-10.1) Laboratory Tests Test 10/30/19 17:28 10/30/19 17:30 10/30/19 18:40 10/30/19 21:00 O2 Saturation 94 % (92-99) Arterial Blood pH 7.44 (7.35-7.45) Arterial Blood pCO2 at Patient Temp 34 mmHg (35-46) Arterial Blood pO2 at Patient Temp 72 mmHg (65-108) Arterial Blood HCO3 23 mmol/L (21-28) Arterial Blood Base Excess 0 mmol/L (-3-3) FiO2 21 White Blood Count 13.9 x10^3/uL (4.0-11.0) Red Blood Count 5.05 x10^6/uL (4.30-5.70) Hemoglobin 13.7 g/dL (13.0-17.5) Hematocrit 41.5 % (39.0-53.0) Mean Corpuscular Volume 82 fL (79-100) Mean Corpuscular Hemoglobin 27 pg (25-35) Mean Corpuscular Hemoglobin Concent 33 g/dL (31-37) Red Cell Distribution Width 14.5 % (11.5-14.5) Platelet Count 318 x10^3/uL (140-400) Neutrophils (%) (Auto) 83 % (31-73) Lymphocytes (%) (Auto) 6 % (24-48) Monocytes (%) (Auto) 10 % (0-9) Eosinophils (%) (Auto) 1 % (0-3) Basophils (%) (Auto) 0 % (0-3) Neutrophils # (Auto) 11.5 x10^3/uL (1.8-7.7) Lymphocytes # (Auto) 0.8 x10^3/uL (1.0-4.8) Monocytes # (Auto) 1.4 x10^3/uL (0.0-1.1) Eosinophils # (Auto) 0.1 x10^3/uL (0.0-0.7) Basophils # (Auto) 0.0 x10^3/uL (0.0-0.2) Prothrombin Time 15.6 SEC (11.7-14.0) Prothromb Time International Ratio 1.3 (0.8-1.1) Sodium Level 154 mmol/L (136-145) Potassium Level 2.7 mmol/L (3.5-5.1) Chloride Level 113 mmol/L (98-107) Carbon Dioxide Level 29 mmol/L (21-32) Anion Gap 12 (6-14) Blood Urea Nitrogen 59 mg/dL (8-26) Creatinine 2.0 mg/dL (0.7-1.3) Estimated GFR (Cockcroft-Gault) 33.6 BUN/Creatinine Ratio 30 (6-20) Glucose Level 153 mg/dL (70-99) Lactic Acid Level 2.1 mmol/L (0.4-2.0) 1.2 mmol/L (0.4-2.0) Calcium Level 10.1 mg/dL (8.5-10.1) Magnesium Level 2.8 mg/dL (1.8-2.4) Total Bilirubin 0.5 mg/dL (0.2-1.0) Aspartate Amino Transf (AST/SGOT) 39 U/L (15-37) Alanine Aminotransferase (ALT/SGPT) 28 U/L (16-63) Alkaline Phosphatase 137 U/L (46-116) Creatine Kinase 613 U/L (39-308) Troponin I Quantitative 0.153 ng/mL (0.000-0.055) Total Protein 8.2 g/dL (6.4-8.2) Albumin 3.2 g/dL (3.4-5.0) Albumin/Globulin Ratio 0.6 (1.0-1.7) Lipase 342 U/L (73-393) Thyroid Stimulating Hormone (TSH) 0.265 uIU/mL (0.358-3.74) Urine Collection Type Unknown Urine Color Yellow Urine Clarity Cloudy Urine pH 5.5 (<5.0-8.0) Urine Specific Rochert 1.020 (1.000-1.030) Urine Protein >=300 mg/dL (NEG-TRACE) Urine Glucose (UA) Negative mg/dL (NEG) Urine Ketones (Stick) Negative mg/dL (NEG) Urine Blood Moderate (NEG) Urine Nitrite Negative (NEG) Urine Bilirubin Negative (NEG) Urine Urobilinogen Dipstick 0.2 mg/dL (0.2 mg/dL) Urine Leukocyte Esterase Small (NEG) Urine RBC 0 /HPF (0-2) Urine WBC 0 /HPF (0-4) Urine Squamous Epithelial Cells Occ /LPF Urine Amorphous Sediment Present /HPF Urine Bacteria 0 /HPF (0-FEW) Urine Hyaline Casts Moderate /HPF Urine Mucus Slight /LPF Test 10/31/19 00:01 10/31/19 02:45 10/31/19 03:45 Troponin I Quantitative 0.166 ng/mL (0.000-0.055) 0.119 ng/mL (0.000-0.055) White Blood Count 11.2 x10^3/uL (4.0-11.0) Red Blood Count 5.16 x10^6/uL (4.30-5.70) Hemoglobin 13.8 g/dL (13.0-17.5) Hematocrit 42.9 % (39.0-53.0) Mean Corpuscular Volume 83 fL (79-100) Mean Corpuscular Hemoglobin 27 pg (25-35) Mean Corpuscular Hemoglobin Concent 32 g/dL (31-37) Red Cell Distribution Width 15.1 % (11.5-14.5) Platelet Count 282 x10^3/uL (140-400) Neutrophils (%) (Auto) 93 % (31-73) Lymphocytes (%) (Auto) 4 % (24-48) Monocytes (%) (Auto) 3 % (0-9) Eosinophils (%) (Auto) 0 % (0-3) Basophils (%) (Auto) 0 % (0-3) Neutrophils # (Auto) 10.4 x10^3/uL (1.8-7.7) Lymphocytes # (Auto) 0.5 x10^3/uL (1.0-4.8) Monocytes # (Auto) 0.3 x10^3/uL (0.0-1.1) Eosinophils # (Auto) 0.0 x10^3/uL (0.0-0.7) Basophils # (Auto) 0.0 x10^3/uL (0.0-0.2) Segmented Neutrophils % 84 % (35-66) Band Neutrophils % 10 % (0-9) Lymphocytes % 3 % (24-48) Monocytes % 2 % (0-10) Metamyelocytes % 1 % (0-0) Platelet Estimate Adequate (ADEQUATE) Anisocytosis Slight Sodium Level 157 mmol/L (136-145) Potassium Level 3.2 mmol/L (3.5-5.1) Chloride Level 117 mmol/L (98-107) Carbon Dioxide Level 26 mmol/L (21-32) Anion Gap 14 (6-14) Blood Urea Nitrogen 48 mg/dL (8-26) Creatinine 1.6 mg/dL (0.7-1.3) Estimated GFR (Cockcroft-Gault) 43.5 Glucose Level 188 mg/dL (70-99) Calcium Level 9.6 mg/dL (8.5-10.1) Review All relevant outside records, renal labs, imaging studies, telemetry/EKG's were reviewed. JE RIBEIRO MD October 31, 2019 11:51
--- NOTE | 2019-10-31 14:24 | PDOC2 ---
NEUROLOGY CONSULT Date of Admission Date of Admission DATE: 10/31/19 TIME: 14:15 Reason for Consult Reason for Consult: Brain mass Referring Physician Referring Physician: Dr. Soares Source Source: Chart review, Patient History of Present Illness History of Present Illness The patient is a 64-year-old right-handed male whose neighbor found him on the floor unable to get up. He complains of bilateral shoulder pain and generalized weakness. CT of the head, reviewed below, shows a right frontal brain mass. He does have stage IV colon cancer followed by oncology. He was here 3 months ago with septic shock and influenza B. [facility] There is no history of stroke, seizure, or head injury. 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) Renal/: Chronic renal insuff, UTI Dermatology: Other (Ivan's gangrene) Past Surgical History Past Surgical History: Hernia Repair (Chronic wound infection umbilical hernia, also bilateral inguinal), Colon Resection (Colostomy), Other (Incision and drainage of scrotal area) Family History Family History: Cancer Social History Social History Single, lives alone, no alcohol, tobacco, street drugs Current Medications Current Medications Current Medications Sodium Chloride 1,000 ml @ 2,000 mls/hr 1X ONCE IV Last administered on 10/30/19at 18:13; Start 10/30/19 at 17:30; Stop 10/30/19 at 17:59; Status DC Potassium Chloride/Water 100 ml @ 50 mls/hr 1X ONCE IV Last administered on 10/30/19at 18:20; Start 10/30/19 at 18:30; Stop 10/30/19 at 20:29; Status DC Fentanyl Citrate (Fentanyl 2ml Vial) 50 mcg 1X ONCE IVP Last administered on 10/30/19at 18:41; Start 10/30/19 at 18:30; Stop 10/30/19 at 18:39; Status DC Fentanyl Citrate (Fentanyl 2ml Vial) 100 mcg STK-MED ONCE .ROUTE ; Start 10/30/19 at 18:39; Stop 10/30/19 at 18:40; Status DC Sodium Chloride (Normal Saline Flush) 3 ml QSHIFT PRN IV AFTER MEDS AND BLOOD DRAWS; Start 10/30/19 at 19:15 Sodium Chloride 1,000 ml @ 999 mls/hr Q1H1M STAT IV Last administered on 10/30/19at 19:42; Start 10/30/19 at 19:06; Stop 10/30/19 at 20:06; Status DC Labetalol HCl (Normodyne Iv Push) 10 mg 1X ONCE IVP Last administered on 10/30/19at 19:55; Start 10/30/19 at 20:00; Stop 10/30/19 at 20:01; Status DC Dexamethasone Sodium Phosphate (Decadron) 10 mg 1X ONCE IV Last administered on 10/30/19at 20:12; Start 10/30/19 at 20:15; Stop 10/30/19 at 20:16; Status DC Ondansetron HCl (Zofran) 4 mg PRN Q8HRS PRN IV NAUSEA/VOMITING; Start 10/30/19 at 20:30; Stop 10/31/19 at 20:29 Morphine Sulfate (Morphine Sulfate) 2 mg PRN Q2HR PRN IV PAIN; Start 10/30/19 at 20:30; Stop 10/31/19 at 20:29 Sodium Chloride 1,000 ml @ 125 mls/hr Q8H IV Last administered on 10/30/19at 23:08; Start 10/30/19 at 20:19; Stop 10/31/19 at 10:06; Status DC Acetaminophen (Tylenol) 650 mg PRN Q4HRS PRN PO FEVER > 100.3'F; Start 10/30/19 at 20:30; Stop 10/31/19 at 20:29 Dexamethasone Sodium Phosphate (Decadron) 4 mg Q6H IV ; Start 10/30/19 at 20:30; Stop 10/30/19 at 22:55; Status DC Dexamethasone Sodium Phosphate (Decadron) 4 mg Q6H IV Last administered on 10/31/19at 10:28; Start 10/30/19 at 22:55 Nicardipine HCl 50 mg/Sodium Chloride 250 ml @ 25 mls/hr CONT PRN IV SEE I/O RECORD Last administered on 10/31/19at 07:58; Start 10/31/19 at 00:45 Clonidine HCl (Catapres Tts-2) 1 patch 1X ONCE TD Last administered on 10/31/19at 01:31; Start 10/31/19 at 01:15; Stop 10/31/19 at 01:16; Status DC Metoprolol Tartrate (Lopressor) 25 mg BID PO Last administered on 10/31/19at 10:00; Start 10/31/19 at 10:00 Sodium Chloride 1,000 ml @ 100 mls/hr Q10H IV Last administered on 10/31/19at 11:00; Start 10/31/19 at 11:00; Stop 10/31/19 at 13:01; Status DC Potassium Chloride/Sodium Chloride 1,000 ml @ 75 mls/hr [id number] IV ; Start 10/31/19 at 13:00 Active Scripts Active Reported Metoprolol Tartrate 25 Mg Tablet 1 Tab PO BID Hydrochlorothiazide Capsule (Hydrochlorothiazide) 12.5 Mg Capsule 12.5 Mg PO DAILY Allergies Allergies: Coded Allergies: No Known Drug Allergies (Unverified , 10/08/18) ROS Review of System Negative for fever, chills, weight loss, shortness of breath, chest pain, indigestion, hematochezia, melena, and dysuria. Full 14-point review of systems is negative. Physical Exam Physical Examination General: Well-developed, well-nourished white male in no acute distress HEENT: Normocephalic andatraumatic. Temporal arteriespulsatile and nontender. Neck: Supple without bruit, no meningismus Musculoskeletal: Stability:see neurologic. Gait exam:see neurologic. Tone:see neurologic.Strength:see neurologic. Neurological: Mental Status:orientation, memory, attention span/concentration, language, fund of knowledge: Knows location, month, year, name of president, names and repeats well, somewhat of a poor historian and very loquacious. Cranial Nerves:Pupils equal and reactive to light, extraocular movements areintact, visual saleh are full to confrontation. Facial sensation is normal. There is no facial asymmetry. Vestibulo-ocular reflex is intact. Palate elevates and tongue protrudes in midline. All other cranial related problems are negative except as mentioned before.Reflexes:2+ and symmetric with flexor plantar responses. Motor:Limited range of motion of shoulders bilaterally, also left pronator drift, otherwise 5/5 strength with normal tone and bulk. Coordination:Finger-nose finger and csif-yo-cdip testing are normal. Rapid alternating movements and fine finger mo vements are intact. Gait:Not tested. Sensory:Normal pinprick, vibration, light touch, proprioception. Vitals VITALS Vital Signs Date Time Temp Pulse Resp B/P (MAP) Pulse Ox O2 Delivery O2 Flow Rate FiO2 10/31/19 12:00 98.6 99 20 162/95 (117) 98 Room Air 98.6 Labs Labs Laboratory Tests Test 10/30/19 17:28 10/30/19 17:30 10/30/19 18:40 10/30/19 21:00 O2 Saturation 94 % (92-99) Arterial Blood pH 7.44 (7.35-7.45) Arterial Blood pCO2 at Patient Temp 34 mmHg (35-46) Arterial Blood pO2 at Patient Temp 72 mmHg (65-108) Arterial Blood HCO3 23 mmol/L (21-28) Arterial Blood Base Excess 0 mmol/L (-3-3) FiO2 21 White Blood Count 13.9 x10^3/uL (4.0-11.0) Red Blood Count 5.05 x10^6/uL (4.30-5.70) Hemoglobin 13.7 g/dL (13.0-17.5) Hematocrit 41.5 % (39.0-53.0) Mean Corpuscular Volume 82 fL (79-100) Mean Corpuscular Hemoglobin 27 pg (25-35) Mean Corpuscular Hemoglobin Concent 33 g/dL (31-37) Red Cell Distribution Width 14.5 % (11.5-14.5) Platelet Count 318 x10^3/uL (140-400) Neutrophils (%) (Auto) 83 % (31-73) Lymphocytes (%) (Auto) 6 % (24-48) Monocytes (%) (Auto) 10 % (0-9) Eosinophils (%) (Auto) 1 % (0-3) Basophils (%) (Auto) 0 % (0-3) Neutrophils # (Auto) 11.5 x10^3/uL (1.8-7.7) Lymphocytes # (Auto) 0.8 x10^3/uL (1.0-4.8) Monocytes # (Auto) 1.4 x10^3/uL (0.0-1.1) Eosinophils # (Auto) 0.1 x10^3/uL (0.0-0.7) Basophils # (Auto) 0.0 x10^3/uL (0.0-0.2) Prothrombin Time 15.6 SEC (11.7-14.0) Prothromb Time International Ratio 1.3 (0.8-1.1) Sodium Level 154 mmol/L (136-145) Potassium Level 2.7 mmol/L (3.5-5.1) Chloride Level 113 mmol/L (98-107) Carbon Dioxide Level 29 mmol/L (21-32) Anion Gap 12 (6-14) Blood Urea Nitrogen 59 mg/dL (8-26) Creatinine 2.0 mg/dL (0.7-1.3) Estimated GFR (Cockcroft-Gault) 33.6 BUN/Creatinine Ratio 30 (6-20) Glucose Level 153 mg/dL (70-99) Lactic Acid Level 2.1 mmol/L (0.4-2.0) 1.2 mmol/L (0.4-2.0) Calcium Level 10.1 mg/dL (8.5-10.1) Magnesium Level 2.8 mg/dL (1.8-2.4) Total Bilirubin 0.5 mg/dL (0.2-1.0) Aspartate Amino Transf (AST/SGOT) 39 U/L (15-37) Alanine Aminotransferase (ALT/SGPT) 28 U/L (16-63) Alkaline Phosphatase 137 U/L (46-116) Creatine Kinase 613 U/L (39-308) Troponin I Quantitative 0.153 ng/mL (0.000-0.055) Total Protein 8.2 g/dL (6.4-8.2) Albumin 3.2 g/dL (3.4-5.0) Albumin/Globulin Ratio 0.6 (1.0-1.7) Lipase 342 U/L (73-393) Thyroid Stimulating Hormone (TSH) 0.265 uIU/mL (0.358-3.74) Urine Collection Type Unknown Urine Color Yellow Urine Clarity Cloudy Urine pH 5.5 (<5.0-8.0) Urine Specific [place] 1.020 (1.000-1.030) Urine Protein >=300 mg/dL (NEG-TRACE) Urine Glucose (UA) Negative mg/dL (NEG) Urine Ketones (Stick) Negative mg/dL (NEG) Urine Blood Moderate (NEG) Urine Nitrite Negative (NEG) Urine Bilirubin Negative (NEG) Urine Urobilinogen Dipstick 0.2 mg/dL (0.2 mg/dL) Urine Leukocyte Esterase Small (NEG) Urine RBC 0 /HPF (0-2) Urine WBC 0 /HPF (0-4) Urine Squamous Epithelial Cells Occ /LPF Urine Amorphous Sediment Present /HPF Urine Bacteria 0 /HPF (0-FEW) Urine Hyaline Casts Moderate /HPF Urine Mucus Slight /LPF Test 10/31/19 00:01 10/31/19 02:45 10/31/19 03:45 Troponin I Quantitative 0.166 ng/mL (0.000-0.055) 0.119 ng/mL (0.000-0.055) White Blood Count 11.2 x10^3/uL (4.0-11.0) Red Blood Count 5.16 x10^6/uL (4.30-5.70) Hemoglobin 13.8 g/dL (13.0-17.5) Hematocrit 42.9 % (39.0-53.0) Mean Corpuscular Volume 83 fL (79-100) Mean Corpuscular Hemoglobin 27 pg (25-35) Mean Corpuscular Hemoglobin Concent 32 g/dL (31-37) Red Cell Distribution Width 15.1 % (11.5-14.5) Platelet Count 282 x10^3/uL (140-400) Neutrophils (%) (Auto) 93 % (31-73) Lymphocytes (%) (Auto) 4 % (24-48) Monocytes (%) (Auto) 3 % (0-9) Eosinophils (%) (Auto) 0 % (0-3) Basophils (%) (Auto) 0 % (0-3) Neutrophils # (Auto) 10.4 x10^3/uL (1.8-7.7) Lymphocytes # (Auto) 0.5 x10^3/uL (1.0-4.8) Monocytes # (Auto) 0.3 x10^3/uL (0.0-1.1) Eosinophils # (Auto) 0.0 x10^3/uL (0.0-0.7) Basophils # (Auto) 0.0 x10^3/uL (0.0-0.2) Segmented Neutrophils % 84 % (35-66) Band Neutrophils % 10 % (0-9) Lymphocytes % 3 % (24-48) Monocytes % 2 % (0-10) Metamyelocytes % 1 % (0-0) Platelet Estimate Adequate (ADEQUATE) Anisocytosis Slight Sodium Level 157 mmol/L (136-145) Potassium Level 3.2 mmol/L (3.5-5.1) Chloride Level 117 mmol/L (98-107) Carbon Dioxide Level 26 mmol/L (21-32) Anion Gap 14 (6-14) Blood Urea Nitrogen 48 mg/dL (8-26) Creatinine 1.6 mg/dL (0.7-1.3) Estimated GFR (Cockcroft-Gault) 43.5 Glucose Level 188 mg/dL (70-99) Calcium Level 9.6 mg/dL (8.5-10.1) Laboratory Tests Test 10/30/19 17:28 10/30/19 17:30 10/30/19 18:40 10/30/19 21:00 O2 Saturation 94 % (92-99) Arterial Blood pH 7.44 (7.35-7.45) Arterial Blood pCO2 at Patient Temp 34 mmHg (35-46) Arterial Blood pO2 at Patient Temp 72 mmHg (65-108) Arterial Blood HCO3 23 mmol/L (21-28) Arterial Blood Base Excess 0 mmol/L (-3-3) FiO2 21 White Blood Count 13.9 x10^3/uL (4.0-11.0) Red Blood Count 5.05 x10^6/uL (4.30-5.70) Hemoglobin 13.7 g/dL (13.0-17.5) Hematocrit 41.5 % (39.0-53.0) Mean Corpuscular Volume 82 fL (79-100) Mean Corpuscular Hemoglobin 27 pg (25-35) Mean Corpuscular Hemoglobin Concent 33 g/dL (31-37) Red Cell Distribution Width 14.5 % (11.5-14.5) Platelet Count 318 x10^3/uL (140-400) Neutrophils (%) (Auto) 83 % (31-73) Lymphocytes (%) (Auto) 6 % (24-48) Monocytes (%) (Auto) 10 % (0-9) Eosinophils (%) (Auto) 1 % (0-3) Basophils (%) (Auto) 0 % (0-3) Neutrophils # (Auto) 11.5 x10^3/uL (1.8-7.7) Lymphocytes # (Auto) 0.8 x10^3/uL (1.0-4.8) Monocytes # (Auto) 1.4 x10^3/uL (0.0-1.1) Eosinophils # (Auto) 0.1 x10^3/uL (0.0-0.7) Basophils # (Auto) 0.0 x10^3/uL (0.0-0.2) Prothrombin Time 15.6 SEC (11.7-14.0) Prothromb Time International Ratio 1.3 (0.8-1.1) Sodium Level 154 mmol/L (136-145) Potassium Level 2.7 mmol/L (3.5-5.1) Chloride Level 113 mmol/L (98-107) Carbon Dioxide Level 29 mmol/L (21-32) Anion Gap 12 (6-14) Blood Urea Nitrogen 59 mg/dL (8-26) Creatinine 2.0 mg/dL (0.7-1.3) Estimated GFR (Cockcroft-Gault) 33.6 BUN/Creatinine Ratio 30 (6-20) Glucose Level 153 mg/dL (70-99) Lactic Acid Level 2.1 mmol/L (0.4-2.0) 1.2 mmol/L (0.4-2.0) Calcium Level 10.1 mg/dL (8.5-10.1) Magnesium Level 2.8 mg/dL (1.8-2.4) Total Bilirubin 0.5 mg/dL (0.2-1.0) Aspartate Amino Transf (AST/SGOT) 39 U/L (15-37) Alanine Aminotransferase (ALT/SGPT) 28 U/L (16-63) Alkaline Phosphatase 137 U/L (46-116) Creatine Kinase 613 U/L (39-308) Troponin I Quantitative 0.153 ng/mL (0.000-0.055) Total Protein 8.2 g/dL (6.4-8.2) Albumin 3.2 g/dL (3.4-5.0) Albumin/Globulin Ratio 0.6 (1.0-1.7) Lipase 342 U/L (73-393) Thyroid Stimulating Hormone (TSH) 0.265 uIU/mL (0.358-3.74) Urine Collection Type Unknown Urine Color Yellow Urine Clarity Cloudy Urine pH 5.5 (<5.0-8.0) Urine Specific [place] 1.020 (1.000-1.030) Urine Protein >=300 mg/dL (NEG-TRACE) Urine Glucose (UA) Negative mg/dL (NEG) Urine Ketones (Stick) Negative mg/dL (NEG) Urine Blood Moderate (NEG) Urine Nitrite Negative (NEG) Urine Bilirubin Negative (NEG) Urine Urobilinogen Dipstick 0.2 mg/dL (0.2 mg/dL) Urine Leukocyte Esterase Small (NEG) Urine RBC 0 /HPF (0-2) Urine WBC 0 /HPF (0-4) Urine Squamous Epithelial Cells Occ /LPF Urine Amorphous Sediment Present /HPF Urine Bacteria 0 /HPF (0-FEW) Urine Hyaline Casts Moderate /HPF Urine Mucus Slight /LPF Test 10/31/19 00:01 10/31/19 02:45 10/31/19 03:45 Troponin I Quantitative 0.166 ng/mL (0.000-0.055) 0.119 ng/mL (0.000-0.055) White Blood Count 11.2 x10^3/uL (4.0-11.0) Red Blood Count 5.16 x10^6/uL (4.30-5.70) Hemoglobin 13.8 g/dL (13.0-17.5) Hematocrit 42.9 % (39.0-53.0) Mean Corpuscular Volume 83 fL (79-100) Mean Corpuscular Hemoglobin 27 pg (25-35) Mean Corpuscular Hemoglobin Concent 32 g/dL (31-37) Red Cell Distribution Width 15.1 % (11.5-14.5) Platelet Count 282 x10^3/uL (140-400) Neutrophils (%) (Auto) 93 % (31-73) Lymphocytes (%) (Auto) 4 % (24-48) Monocytes (%) (Auto) 3 % (0-9) Eosinophils (%) (Auto) 0 % (0-3) Basophils (%) (Auto) 0 % (0-3) Neutrophils # (Auto) 10.4 x10^3/uL (1.8-7.7) Lymphocytes # (Auto) 0.5 x10^3/uL (1.0-4.8) Monocytes # (Auto) 0.3 x10^3/uL (0.0-1.1) Eosinophils # (Auto) 0.0 x10^3/uL (0.0-0.7) Basophils # (Auto) 0.0 x10^3/uL (0.0-0.2) Segmented Neutrophils % 84 % (35-66) Band Neutrophils % 10 % (0-9) Lymphocytes % 3 % (24-48) Monocytes % 2 % (0-10) Metamyelocytes % 1 % (0-0) Platelet Estimate Adequate (ADEQUATE) Anisocytosis Slight Sodium Level 157 mmol/L (136-145) Potassium Level 3.2 mmol/L (3.5-5.1) Chloride Level 117 mmol/L (98-107) Carbon Dioxide Level 26 mmol/L (21-32) Anion Gap 14 (6-14) Blood Urea Nitrogen 48 mg/dL (8-26) Creatinine 1.6 mg/dL (0.7-1.3) Estimated GFR (Cockcroft-Gault) 43.5 Glucose Level 188 mg/dL (70-99) Calcium Level 9.6 mg/dL (8.5-10.1) Images Images CT Head without IV contrast INDICATION: Altered mental status TECHNIQUE: Multi-detector row CT images were obtained of the head without the use of IV contrast. All CT scans performed at this facility utilize dose optimization techniques as appropriate to the exam, including the following: Automated exposure control and adjustment of the mA and/or KV according to patient size (this includes techniques or standardized protocols for targeted exams where dose is indication/reason for exam). COMPARISON: None FINDINGS: BRAIN PARENCHYMA: No evidence of acute intraparenchymal hemorrhage or infarct. Large area of vasogenic edema with mild associated mass effect in the superior right frontal lobe is present. VENTRICLES & EXTRA-AXIAL SPACES: Ventricles are within normal limits. Basilar cisterns are patent. No pathologic extra-axial fluid collection or mass. ORBITS: Orbital contents are unremarkable. SINUSES: Visualized paranasal sinuses and mastoid air cells are clear. OSSEOUS & SOFT TISSUES: Calvarium and skull base are intact. IMPRESSION: Large area of edema in the superior right frontal lobe ; differential consideration of an underlying intra-axial mass versus edema from cerebritis. Consider MRI with and without IV contrast in further evaluation. Assessment/Plan Assessment/Plan Impression: Large area of edema in the superior right frontal lobe: differential consideration of an underlying intra-axial mass versus edema from cerebritis. Most likely this is metastatic from his colon cancer Osteoarthritis or rotator cuff problems in both shoulders Generalized weakness and deconditioning Patient under investigation for COVID19. Recommendations: I ordered MRI of the brain and CT scan of the body, but these are on hold until his COVID status is ruled out. That is reasonable. Okay to eat Dexamethasone Rehabilitation modalities Neurosurgery is consulted Consult oncology after scan results are back. Thank you for letting me help with the patient's care. MITCH WISDOM MD October 31, 2019 14:24
[2019-10-31] MEDS: hydrALAZINE 20 MG/ML VIAL. IVP PRN ×2 (14:57→20:21)
--- NOTE | 2019-10-31 20:55 | NUR ---
Paged Dr Roa (ID), returned page, notified of consult, positive Blood culture 1 out of two bottles. Orders received for Daptomycin 6MG/KG IV x1 and pharmacist to adjust as needed. See orders.
--- NOTE | 2019-10-31 21:05 | NUR ---
Patient's SBP continues to be >170's even after administering Metoprol 25MG PO and Hydralazine 10MG IVP, Dr Hernandez paged. Dr Hernandez returned page, notified of consult, BP, medications administered and patient was on Cardene previously. Orders received to restart Cardene gtt. See vitals signs, orders.
[2019-10-31] MEDS ORDERED: DAPTOmycin (GENERIC) IVPB 440 MG in IV NORMAL SALINE 50ML 50 ML IV ONE (21:30)
[2019-11-01] VITALS (23 sets, daily range): BP systolic 99–179; BP diastolic 53–91
[2019-11-01] MEDS: DEXAMETHASONE SOD PHOS 4 MG/ML VIAL IV SCH ×4 (04:58→22:59)
[2019-11-01 06:27] LABS: BASO % 0 % (0-3); EOS % 0 % (0-3); HEMATOCRIT 35.8 % (39.0-53.0); HEMOGLOBIN 11.6 g/dL (13.0-17.5); LYMPH # 0.7 x10^3/uL (1.0-4.8); LYMPH % 5 % (24-48); MEAN CORPUSCULAR HEMOGLOBIN 27 pg (25-35); MEAN CORPUSCULAR HGB CONC 33 g/dL (31-37); MEAN CORPUSCULAR VOLUME 83 fL (79-100); MONO # 0.4 x10^3/uL (0.0-1.1); MONO % 3 % (0-9); NEUT % 92 % (31-73); PLATELET COUNT 228 x10^3/uL (140-400); RED BLOOD COUNT 4.33 x10^6/uL (4.30-5.70); RED CELL DISTRIBUTION WIDTH 14.9 % (11.5-14.5); WHITE BLOOD COUNT 14.1 x10^3/uL (4.0-11.0)
[2019-11-01 06:37] LABS: ALBUMIN 2.5 g/dL (3.4-5.0); ALBUMIN/GLOBULIN RATIO 0.6 (1.0-1.7); CALCIUM 9.4 mg/dL (8.5-10.1); CREATININE 1.3 mg/dL (0.7-1.3); GFR 55.2; TOTAL BILIRUBIN 0.3 mg/dL (0.2-1.0); TOTAL PROTEIN 6.7 g/dL (6.4-8.2)
[2019-11-01 06:39] LABS: POTASSIUM 2.9 mmol/L (3.5-5.1)
[2019-11-01] MEDS ORDERED: POTASSIUM CHLORIDE 20 MEQ TABLET.ER. PO ONE ×3 (08:45→13:00)
--- NOTE | 2019-11-01 08:46 | PDOC2 ---
COLLEEN GOMEZ SCREW MACHINE OPERATOR 11/01/19 0846: CARDIAC CONSULT DATE OF CONSULT Date of Consult DATE: 11/01/19 TIME: 08:32 REASON FOR CONSULT Reason for Consult: Elevated troponin REFERRING PHYSICIAN Referring Physician: Dr. Soares SOURCE Source: Chart review, Patient HISTORY OF PRESENT ILLNESS HISTORY OF PRESENT ILLNESS This is 64 yo male who presented secondary to fall; was found down on the floor by neighbor. Thinks he was down for a day or day and a halfs time. Denies any chest pain, palpitations, dizziness, diaphoresis, or nausea/vomiting. Troponin noted to be mildly elevated, which prompted this consult. PAST MEDICAL HISTORY Past Medical History Cardiovascular: HTN Pulmonary: Other (pulmonary mets) CENTRAL NERVOUS SYSTEM: Other GI: Other (colon CA, metastatic) Heme/Onc: Cancer (colon), Other (chemotherapy) Hepatobiliary: Cholelithiasis, Other (hepatic mets) Psych: No pertinent hx Musculoskeletal: Osteoarthritis Rheumatologic: No pertinent hx Infectious disease: No pertinent hx ENT: No pertinent hx Renal/: UTI, Other (scrotal abscess) Endocrine: No pertinent hx Dermatology: No pertinent hx PAST SURGICAL HISTORY Past Surgical History Hernia Repair (with mesh) FAMILY HISTORY Family History Adopted SOCIAL HISTORY Social History Smoke: No ALCOHOL: none Drugs: None Lives: Alone CURRENT MEDICATIONS CURRENT MEDICATIONS Current Medications Medications (Trade) Dose Ordered Sig/Joseph Route PRN Reason Start Time Stop Time Status Last Admin Dose Admin Metoprolol Tartrate (Lopressor) 25 mg BID PO 10/31/19 10:00 10/31/19 19:34 Sodium Chloride 1,000 ml @ 100 mls/hr Q10H IV 10/31/19 11:00 10/31/19 13:01 DC 10/31/19 11:00 Potassium Chloride/Sodium Chloride 1,000 ml @ 75 mls/hr [id number] IV 10/31/19 13:00 11/01/19 04:15 Hydralazine HCl (Apresoline Inj) 10 mg PRN Q4HRS PRN IVP ELEVATED BP, SEE COMMENTS 10/31/19 14:30 10/31/19 20:21 Daptomycin 440 mg/ Sodium Chloride 50 ml @ 100 mls/hr ONCE ONCE IV 10/31/19 21:30 10/31/19 22:00 DC 10/31/19 21:47 ALLERGIES ALLERGIES: Coded Allergies: No Known Drug Allergies (Unverified , 4/11/19) ROS Review of System 14 point ROS conducted with pertinent positives noted above in hPI PHYSICAL EXAM PHYSICAL EXAM General: Alert, Oriented X3, Cooperative, No acute distress HEENT: Atraumatic, Mucous membr. moist/pink Lungs: Clear to auscultation, Normal air movement Heart: Regular rate (SR), Normal S1, Normal S2, No murmurs Abdomen: Soft, No tenderness Extremities: No cyanosis, No edema Skin: No breakdown, No significant lesion Neuro: Normal speech, Sensation intact Psych/Mental Status: Mental status NL, Mood NL MUSCULOSKELETAL: Osteoarthritic changes both hands VITALS/I&O VITALS/I&O: Vital Signs Date Time Temp Pulse Resp B/P (MAP) Pulse Ox O2 Delivery O2 Flow Rate FiO2 11/01/19 07:30 112 18 124/91 (102) 95 Room Air 11/01/19 04:00 98.0 98.0 I & O 10/31/19 10/31/19 11/01/19 15:00 23:00 07:00 Intake Total 500 ml 1770 ml 2124 ml Output Total 615 ml 850 ml 1570 ml Balance -115 ml 920 ml 554 ml LABS Lab: Laboratory Tests Test 11/01/19 05:10 11/01/19 05:20 White Blood Count 14.1 x10^3/uL (4.0-11.0) H Red Blood Count 4.33 x10^6/uL (4.30-5.70) Hemoglobin 11.6 g/dL (13.0-17.5) L Hematocrit 35.8 % (39.0-53.0) L Mean Corpuscular Volume 83 fL (79-100) Mean Corpuscular Hemoglobin 27 pg (25-35) Mean Corpuscular Hemoglobin Concent 33 g/dL (31-37) Red Cell Distribution Width 14.9 % (11.5-14.5) H Platelet Count 228 x10^3/uL (140-400) Neutrophils (%) (Auto) 92 % (31-73) H Lymphocytes (%) (Auto) 5 % (24-48) L Monocytes (%) (Auto) 3 % (0-9) Eosinophils (%) (Auto) 0 % (0-3) Basophils (%) (Auto) 0 % (0-3) Neutrophils # (Auto) 13.0 x10^3/uL (1.8-7.7) H Lymphocytes # (Auto) 0.7 x10^3/uL (1.0-4.8) L Monocytes # (Auto) 0.4 x10^3/uL (0.0-1.1) Eosinophils # (Auto) 0.0 x10^3/uL (0.0-0.7) Basophils # (Auto) 0.0 x10^3/uL (0.0-0.2) Sodium Level 150 mmol/L (136-145) H Potassium Level 2.9 mmol/L (3.5-5.1) *L Chloride Level 115 mmol/L (98-107) H Carbon Dioxide Level 23 mmol/L (21-32) Anion Gap 12 (6-14) Blood Urea Nitrogen 43 mg/dL (8-26) H Creatinine 1.3 mg/dL (0.7-1.3) Estimated GFR (Cockcroft-Gault) 55.2 BUN/Creatinine Ratio 33 (6-20) H Glucose Level 199 mg/dL (70-99) H Calcium Level 9.4 mg/dL (8.5-10.1) Total Bilirubin 0.3 mg/dL (0.2-1.0) Aspartate Amino Transferase (AST) 22 U/L (15-37) Alanine Aminotransferase (ALT) 27 U/L (16-63) Alkaline Phosphatase 110 U/L (46-116) Total Protein 6.7 g/dL (6.4-8.2) Albumin 2.5 g/dL (3.4-5.0) L Albumin/Globulin Ratio 0.6 (1.0-1.7) L Laboratory Tests 11/01/19 05:10 Laboratory Tests 11/01/19 05:20 ECHOCARDIOGRAM ECHOCARDIOGRAM <Conclusion> The left ventricle is normal size. The left ventricular systolic function is low normal. The Ejection Fraction is 50-55%. There is mild concentric left ventricular hypertrophy. Mild aortic regurgitation. There is no significant aortic valvular stenosis. No mitral valve regurgitation noted. Trace tricuspid regurgitation. DATE: 08/06/19 1031 ASSESSMENT/PLAN ASSESSMENT/PLAN 1. Fall, generalized weakness 2. THAD 3. Hypernatremia 4. Hypokalemia 5. Stage 4 Colon CA with mets to lungs and liver treated with chemotherapy. Follows at [facility] 6. Superior right frontal lobe edema. MRI for further evaluation 7. Hypertensive urgency; on Cardene gtt 8. Mild trop elevation; peak 0.166. most probable type II, demand ischemia; multiple culprits noted above. Recent echo with preserved LV systolic function. CP free. 9. H/o DVT on Xarelto 10. Low-grade fevers, bacteremia 11. 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 Antibiotic therapy as per ID Continue Xarelto Supportive care from a CV standpoint. Recommend conservative measures CV de jesus, given advanced metastatic disease. SCARLETT LATIF MD 11/01/19 1816: CARDIAC CONSULT ASSESSMENT/PLAN ASSESSMENT/PLAN Agree with RECRUITING COORDINATOR's assessment and plan. Slight trop elevation prob demand ischemia Recent 2D echo showed normal LVF Plan ischemic evaluation as outpatient Agree with resuming outpatient anti-hypertensives and titrate for better control Thank you for your consultation COLLEEN GOMEZ APRN November 01, 2019 08:46 SCARLETT LATIF MD November 01, 2019 18:16
--- NOTE | 2019-11-01 08:50 | EKG ---
[facility] [address] [place] [address] Test Date: 2019-10-30 Test Time: 17:28:02 Pat Name: KELLY DONOVAN Department: Room: Gender: M State'S Attorney: [place] : 1955 Requested By: MARRY AUSTIN Order Number: [id number] Reading MD: Gonzalo Ordonez Measurements Intervals [place] Rate: 131 P: 66 SC: 142 QRS: -48 QRSD: 112 T: 64 QT: 310 QTc: 463 Interpretive Statements SINUS TACHYCARDIA ABNORMAL LEFT AXIS DEVIATION LEFT ANTERIOR FASCICULAR BLOCK LVH WITH REPOLARIZATION ABNORMALITY ABNORMAL ECG Electronically Signed On 11-01-2019 8:50:15 CDT by Gonzalo Ordonez
[2019-11-01] MEDS: METOPROLOL TART IMMED RELEASE 25 MG TABLET. PO SCH (08:53)
--- NOTE | 2019-11-01 09:13 | PDOC ---
Infectious Disease Note Vital Sign Vital Signs Vital Signs Date Time Temp Pulse Resp B/P (MAP) Pulse Ox O2 Delivery O2 Flow Rate FiO2 11/01/19 07:00 111 20 174/75 (108) 95 Room Air 11/01/19 04:00 98.0 98.0 Labs Lab Laboratory Tests Test 11/01/19 05:10 11/01/19 05:20 White Blood Count 14.1 x10^3/uL (4.0-11.0) Red Blood Count 4.33 x10^6/uL (4.30-5.70) Hemoglobin 11.6 g/dL (13.0-17.5) Hematocrit 35.8 % (39.0-53.0) Mean Corpuscular Volume 83 fL (79-100) Mean Corpuscular Hemoglobin 27 pg (25-35) Mean Corpuscular Hemoglobin Concent 33 g/dL (31-37) Red Cell Distribution Width 14.9 % (11.5-14.5) Platelet Count 228 x10^3/uL (140-400) Neutrophils (%) (Auto) 92 % (31-73) Lymphocytes (%) (Auto) 5 % (24-48) Monocytes (%) (Auto) 3 % (0-9) Eosinophils (%) (Auto) 0 % (0-3) Basophils (%) (Auto) 0 % (0-3) Neutrophils # (Auto) 13.0 x10^3/uL (1.8-7.7) Lymphocytes # (Auto) 0.7 x10^3/uL (1.0-4.8) Monocytes # (Auto) 0.4 x10^3/uL (0.0-1.1) Eosinophils # (Auto) 0.0 x10^3/uL (0.0-0.7) Basophils # (Auto) 0.0 x10^3/uL (0.0-0.2) Sodium Level 150 mmol/L (136-145) Potassium Level 2.9 mmol/L (3.5-5.1) Chloride Level 115 mmol/L (98-107) Carbon Dioxide Level 23 mmol/L (21-32) Anion Gap 12 (6-14) Blood Urea Nitrogen 43 mg/dL (8-26) Creatinine 1.3 mg/dL (0.7-1.3) Estimated GFR (Cockcroft-Gault) 55.2 BUN/Creatinine Ratio 33 (6-20) Glucose Level 199 mg/dL (70-99) Calcium Level 9.4 mg/dL (8.5-10.1) Total Bilirubin 0.3 mg/dL (0.2-1.0) Aspartate Amino Transf (AST/SGOT) 22 U/L (15-37) Alanine Aminotransferase (ALT/SGPT) 27 U/L (16-63) Alkaline Phosphatase 110 U/L (46-116) Total Protein 6.7 g/dL (6.4-8.2) Albumin 2.5 g/dL (3.4-5.0) Albumin/Globulin Ratio 0.6 (1.0-1.7) Micro CT 10/29 IMPRESSION: Large area of edema in the superior right frontal lobe ; differential consideration of an underlying intra-axial mass versus edema from cerebritis. Consider MRI with and without IV contrast in further evaluation. Microbiology 10/30/19 Blood Culture - Final, Complete Objective Assessment Bacteremia 07/01 bottles 10/29 ? Strep possible Enterococcus - s/p Dapto times one 10/30 Leukocytosis - on Dexamethasone Large area of edema in the superior right frontal lobe: differential consideration of an underlying intra-axial mass versus edema from cerebritis. Fever Colon cancer metastatic undergoing chemo at [facility]. 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 On RA and not SOA- No cough but add Zyvox with brain mass Add Ampicillin given brain mass F/u MRI head - CT chest/abd/pel F/u labs in am and cults Electrolytes per primary Wound care consult F/u COVID Critically ill 35 mins Thank you # [id number] [place]DEZ MD November 01, 2019 09:13
--- NOTE | 2019-11-01 10:01 | PDOC ---
SUBJECTIVE ROS stable OBJECTIVE Vital Signs Vital Signs Date Time Temp Pulse Resp B/P (MAP) Pulse Ox O2 Delivery O2 Flow Rate FiO2 11/01/19 09:04 118 18 162/74 (103) 96 Room Air 11/01/19 04:00 98.0 98.0 I & 0 Intake and Output 11/01/19 07:00 Intake Total 4394 ml Output Total 3035 ml Balance 1359 ml Intake Oral 1970 ml IV Total 2424 ml Output Urine Total 2660 ml Stool Total 375 ml PHYSICAL EXAM Physical Exam GENERAL: NAD HEENT: Oropharynx moist NECK: Supple. LUNGS: Diminished at bases , nonlabored. HEART: S1, S2 regular. ABDOMEN: Soft, nontender, ostomy +. EXTREMITIES: No gross edema or cyanosis. SKIN: No signs of rash. NEUROLOGIC: Alert and awake, Chronic mild tremors [place] + DIAGNOSIS/ASSESSMENT Assessment & Plan Acute kidney injury:Suspect ATN 2/2 UA unremarkable, good uop, Improving renal function Supportive care, Strict I/O, IVF , Avoid nephrotoxins Hx of THAD in Jul 2019 - needing HD , improved Pt was off Dialysis when dc from [facility] in 2018 as well , baseline Cr has been normal Hypernatremia- Improving , continue Hypotonic fluid replacement HypoKalemia- replacing Fall at home - Large area of edema in the superior right frontal lobe: differential consideration of an underlying intra-axial mass versus edema from cerebritis. Most likely this is metastatic from his colon cancer per Neuro Hx of infected abdominal hernia mesh history of scrotal abscess Colon cancer undergoing chemotherapy at [facility]- Defer to Hem/onc history of urinary tract infections COVID-19 pending Chronic abdominal wound for which he is followed by Dr. Clarke at [facility] COMMENT/RELEVANT DATA Meds Current Medications Medications (Trade) Dose Ordered Sig/Joseph Start Time Stop Time Status Last Admin Dose Admin Acetaminophen (Tylenol) 650 mg PRN Q4HRS PRN 10/30/19 20:30 10/31/19 20:29 DC Ampicillin Sodium 2 gm/Sodium Chloride 100 ml @ 200 mls/hr Q4HRS 11/01/19 12:00 Clonidine HCl (Catapres Tts-2) 1 patch 1X ONCE 10/31/19 01:15 10/31/19 01:16 DC 10/31/19 01:31 1 PATCH Daptomycin 440 mg/ Sodium Chloride 50 ml @ 100 mls/hr ONCE ONCE 10/31/19 21:30 10/31/19 22:00 DC 10/31/19 21:47 100 MLS/HR Daptomycin 450 mg/ Sodium Chloride 50 ml @ 100 mls/hr Q24H 11/01/19 21:30 Dexamethasone Sodium Phosphate (Decadron) 4 mg Q6H 10/30/19 22:55 11/01/19 04:58 4 MG Fentanyl Citrate (Fentanyl 2ml Vial) 100 mcg STK-MED ONCE 10/30/19 18:39 10/30/19 18:40 DC Hydralazine HCl (Apresoline Inj) 10 mg PRN Q4HRS PRN 10/31/19 14:30 10/31/19 20:21 10 MG Labetalol HCl (Normodyne Iv Push) 10 mg 1X ONCE 10/30/19 20:00 10/30/19 20:01 DC 10/30/19 19:55 10 MG Linezolid/Dextrose 300 ml @ 300 mls/hr Q12HR 11/01/19 10:00 Metoprolol Tartrate (Lopressor) 25 mg BID 10/31/19 10:00 11/01/19 08:53 25 MG Morphine Sulfate (Morphine Sulfate) 2 mg PRN Q2HR PRN 10/30/19 20:30 10/31/19 20:29 DC Nicardipine HCl 50 mg/Sodium Chloride 250 ml @ 25 mls/hr CONT PRN 10/31/19 00:45 11/01/19 07:39 62.5 MLS/HR Ondansetron HCl (Zofran) 4 mg PRN Q8HRS PRN 10/30/19 20:30 10/31/19 20:29 DC Potassium Chloride/Sodium Chloride 1,000 ml @ 75 mls/hr [id number] 10/31/19 13:00 11/01/19 04:15 75 MLS/HR Potassium Chloride/Water 100 ml @ 50 mls/hr 1X ONCE 10/30/19 18:30 10/30/19 20:29 DC 10/30/19 18:20 50 MLS/HR Potassium Chloride (Klor-Con) 40 meq 1X ONCE 11/01/19 13:00 11/01/19 13:01 Sodium Chloride 1,000 ml @ 100 mls/hr Q10H 10/31/19 11:00 10/31/19 13:01 DC 10/31/19 11:00 100 MLS/HR Sodium Chloride (Normal Saline Flush) 3 ml QSHIFT PRN 10/30/19 19:15 Lab Laboratory Tests Test 11/01/19 05:10 11/01/19 05:20 White Blood Count 14.1 x10^3/uL (4.0-11.0) Red Blood Count 4.33 x10^6/uL (4.30-5.70) Hemoglobin 11.6 g/dL (13.0-17.5) Hematocrit 35.8 % (39.0-53.0) Mean Corpuscular Volume 83 fL (79-100) Mean Corpuscular Hemoglobin 27 pg (25-35) Mean Corpuscular Hemoglobin Concent 33 g/dL (31-37) Red Cell Distribution Width 14.9 % (11.5-14.5) Platelet Count 228 x10^3/uL (140-400) Neutrophils (%) (Auto) 92 % (31-73) Lymphocytes (%) (Auto) 5 % (24-48) Monocytes (%) (Auto) 3 % (0-9) Eosinophils (%) (Auto) 0 % (0-3) Basophils (%) (Auto) 0 % (0-3) Neutrophils # (Auto) 13.0 x10^3/uL (1.8-7.7) Lymphocytes # (Auto) 0.7 x10^3/uL (1.0-4.8) Monocytes # (Auto) 0.4 x10^3/uL (0.0-1.1) Eosinophils # (Auto) 0.0 x10^3/uL (0.0-0.7) Basophils # (Auto) 0.0 x10^3/uL (0.0-0.2) Sodium Level 150 mmol/L (136-145) Potassium Level 2.9 mmol/L (3.5-5.1) Chloride Level 115 mmol/L (98-107) Carbon Dioxide Level 23 mmol/L (21-32) Anion Gap 12 (6-14) Blood Urea Nitrogen 43 mg/dL (8-26) Creatinine 1.3 mg/dL (0.7-1.3) Estimated GFR (Cockcroft-Gault) 55.2 BUN/Creatinine Ratio 33 (6-20) Glucose Level 199 mg/dL (70-99) Calcium Level 9.4 mg/dL (8.5-10.1) Total Bilirubin 0.3 mg/dL (0.2-1.0) Aspartate Amino Transf (AST/SGOT) 22 U/L (15-37) Alanine Aminotransferase (ALT/SGPT) 27 U/L (16-63) Alkaline Phosphatase 110 U/L (46-116) Total Protein 6.7 g/dL (6.4-8.2) Albumin 2.5 g/dL (3.4-5.0) Albumin/Globulin Ratio 0.6 (1.0-1.7) Results All relevant outside records, renal labs, imaging studies, telemetry/EKG's were reviewed. JE RIBEIRO MD November 01, 2019 10:01
[2019-11-01] MEDS ORDERED: METO50TA6 PO (10:56)
[2019-11-01] MEDS ORDERED: POTA10TA12 PO (10:56)
[2019-11-01] MEDS ORDERED: LOSA100T14 PO (10:56)
[2019-11-01] MEDS ORDERED: RIVA20TA2 PO (10:56)
[2019-11-01] MEDS ORDERED: HYDR25TA10 PO ×2 (10:56→11:01)
[2019-11-01] MEDS ORDERED: AMLO10TA8 PO (10:56)
[2019-11-01] MEDS ORDERED: MAGN400C PO (11:04)
[2019-11-01] MEDS ORDERED: METOPROLOL TART IMMED RELEASE 50 MG TABLET. PO ONE (11:15)
[2019-11-01] MEDS ORDERED: METOPROLOL TART IMMED RELEASE 25 MG TABLET. PO ONE (11:15)
--- NOTE | 2019-11-01 11:19 | PDOC ---
PROGRESS NOTES Assessment Problems Medical Problems: (1) [id number] kidney injury Status: Acute (2) Cerebral mass Status: Acute (3) Elevated troponin I level Status: Acute (4) Hypokalemia Status: Acute (5) Left-sided weakness Status: Acute Large area of edema in the superior right frontal lobe: differential consideration of an underlying intra-axial mass versus edema from cerebritis. Most likely this is metastatic from his colon cancer Osteoarthritis or rotator cuff problems in both shoulders Generalized weakness and deconditioning Patient under investigation for COVID19. Medical issues include acute kidney injury, elevated troponin, hypokalemia, colon cancer, metastatic, chronic abdominal wound Plan MRI of the brain CT scan of the body These are on hold until his COVID status is ruled out. Dexamethasone Rehabilitation modalities Neurosurgery is consulted Consult oncology after scan results are back. Subjective No change in shoulder pain Objective Vital Signs Date Time Temp Pulse Resp B/P (MAP) Pulse Ox O2 Delivery O2 Flow Rate FiO2 11/01/19 09:04 118 18 162/74 (103) 96 Room Air 11/01/19 04:00 98.0 98.0 Intake and Output 11/01/19 07:00 Intake Total 4394 ml Output Total 3035 ml Balance 1359 ml Intake Oral 1970 ml IV Total 2424 ml Output Urine Total 2660 ml Stool Total 375 ml PHYSICAL EXAM Alert. Oriented to time, place and person. PERRL. EOMI. CN: no focal findings. Muscle tone: normal. Muscle strength: Limited range of motion of shoulders bilaterally, also left pronator drift, otherwise 5/5 strength with normal tone and bulk DTR: 2+ Plantar reflex: Flexor Gait: not examined in bed. Sensory exam: no abnormal findings. No cerebellar signs elicited. Review of Relevant I have reviewed the following items renetta (where applicable) has been applied. Labs Laboratory Tests Test 10/30/19 17:28 10/30/19 17:30 10/30/19 18:40 10/30/19 21:00 O2 Saturation 94 % (92-99) Arterial Blood pH 7.44 (7.35-7.45) Arterial Blood pCO2 at Patient Temp 34 mmHg (35-46) Arterial Blood pO2 at Patient Temp 72 mmHg (65-108) Arterial Blood HCO3 23 mmol/L (21-28) Arterial Blood Base Excess 0 mmol/L (-3-3) FiO2 21 White Blood Count 13.9 x10^3/uL (4.0-11.0) Red Blood Count 5.05 x10^6/uL (4.30-5.70) Hemoglobin 13.7 g/dL (13.0-17.5) Hematocrit 41.5 % (39.0-53.0) Mean Corpuscular Volume 82 fL (79-100) Mean Corpuscular Hemoglobin 27 pg (25-35) Mean Corpuscular Hemoglobin Concent 33 g/dL (31-37) Red Cell Distribution Width 14.5 % (11.5-14.5) Platelet Count 318 x10^3/uL (140-400) Neutrophils (%) (Auto) 83 % (31-73) Lymphocytes (%) (Auto) 6 % (24-48) Monocytes (%) (Auto) 10 % (0-9) Eosinophils (%) (Auto) 1 % (0-3) Basophils (%) (Auto) 0 % (0-3) Neutrophils # (Auto) 11.5 x10^3/uL (1.8-7.7) Lymphocytes # (Auto) 0.8 x10^3/uL (1.0-4.8) Monocytes # (Auto) 1.4 x10^3/uL (0.0-1.1) Eosinophils # (Auto) 0.1 x10^3/uL (0.0-0.7) Basophils # (Auto) 0.0 x10^3/uL (0.0-0.2) Prothrombin Time 15.6 SEC (11.7-14.0) Prothromb Time International Ratio 1.3 (0.8-1.1) Sodium Level 154 mmol/L (136-145) Potassium Level 2.7 mmol/L (3.5-5.1) Chloride Level 113 mmol/L (98-107) Carbon Dioxide Level 29 mmol/L (21-32) Anion Gap 12 (6-14) Blood Urea Nitrogen 59 mg/dL (8-26) Creatinine 2.0 mg/dL (0.7-1.3) Estimated GFR (Cockcroft-Gault) 33.6 BUN/Creatinine Ratio 30 (6-20) Glucose Level 153 mg/dL (70-99) Lactic Acid Level 2.1 mmol/L (0.4-2.0) 1.2 mmol/L (0.4-2.0) Calcium Level 10.1 mg/dL (8.5-10.1) Magnesium Level 2.8 mg/dL (1.8-2.4) Total Bilirubin 0.5 mg/dL (0.2-1.0) Aspartate Amino Transf (AST/SGOT) 39 U/L (15-37) Alanine Aminotransferase (ALT/SGPT) 28 U/L (16-63) Alkaline Phosphatase 137 U/L (46-116) Creatine Kinase 613 U/L (39-308) Troponin I Quantitative 0.153 ng/mL (0.000-0.055) Total Protein 8.2 g/dL (6.4-8.2) Albumin 3.2 g/dL (3.4-5.0) Albumin/Globulin Ratio 0.6 (1.0-1.7) Lipase 342 U/L (73-393) Thyroid Stimulating Hormone (TSH) 0.265 uIU/mL (0.358-3.74) Urine Collection Type Unknown Urine Color Yellow Urine Clarity Cloudy Urine pH 5.5 (<5.0-8.0) Urine Specific [place] 1.020 (1.000-1.030) Urine Protein >=300 mg/dL (NEG-TRACE) Urine Glucose (UA) Negative mg/dL (NEG) Urine Ketones (Stick) Negative mg/dL (NEG) Urine Blood Moderate (NEG) Urine Nitrite Negative (NEG) Urine Bilirubin Negative (NEG) Urine Urobilinogen Dipstick 0.2 mg/dL (0.2 mg/dL) Urine Leukocyte Esterase Small (NEG) Urine RBC 0 /HPF (0-2) Urine WBC 0 /HPF (0-4) Urine Squamous Epithelial Cells Occ /LPF Urine Amorphous Sediment Present /HPF Urine Bacteria 0 /HPF (0-FEW) Urine Hyaline Casts Moderate /HPF Urine Mucus Slight /LPF Test 10/31/19 00:01 10/31/19 02:45 10/31/19 03:45 11/01/19 05:10 Troponin I Quantitative 0.166 ng/mL (0.000-0.055) 0.119 ng/mL (0.000-0.055) White Blood Count 11.2 x10^3/uL (4.0-11.0) 14.1 x10^3/uL (4.0-11.0) Red Blood Count 5.16 x10^6/uL (4.30-5.70) 4.33 x10^6/uL (4.30-5.70) Hemoglobin 13.8 g/dL (13.0-17.5) 11.6 g/dL (13.0-17.5) Hematocrit 42.9 % (39.0-53.0) 35.8 % (39.0-53.0) Mean Corpuscular Volume 83 fL (79-100) 83 fL (79-100) Mean Corpuscular Hemoglobin 27 pg (25-35) 27 pg (25-35) Mean Corpuscular Hemoglobin Concent 32 g/dL (31-37) 33 g/dL (31-37) Red Cell Distribution Width 15.1 % (11.5-14.5) 14.9 % (11.5-14.5) Platelet Count 282 x10^3/uL (140-400) 228 x10^3/uL (140-400) Neutrophils (%) (Auto) 93 % (31-73) 92 % (31-73) Lymphocytes (%) (Auto) 4 % (24-48) 5 % (24-48) Monocytes (%) (Auto) 3 % (0-9) 3 % (0-9) Eosinophils (%) (Auto) 0 % (0-3) 0 % (0-3) Basophils (%) (Auto) 0 % (0-3) 0 % (0-3) Neutrophils # (Auto) 10.4 x10^3/uL (1.8-7.7) 13.0 x10^3/uL (1.8-7.7) Lymphocytes # (Auto) 0.5 x10^3/uL (1.0-4.8) 0.7 x10^3/uL (1.0-4.8) Monocytes # (Auto) 0.3 x10^3/uL (0.0-1.1) 0.4 x10^3/uL (0.0-1.1) Eosinophils # (Auto) 0.0 x10^3/uL (0.0-0.7) 0.0 x10^3/uL (0.0-0.7) Basophils # (Auto) 0.0 x10^3/uL (0.0-0.2) 0.0 x10^3/uL (0.0-0.2) Segmented Neutrophils % 84 % (35-66) Band Neutrophils % 10 % (0-9) Lymphocytes % 3 % (24-48) Monocytes % 2 % (0-10) Metamyelocytes % 1 % (0-0) Platelet Estimate Adequate (ADEQUATE) Anisocytosis Slight Sodium Level 157 mmol/L (136-145) Potassium Level 3.2 mmol/L (3.5-5.1) Chloride Level 117 mmol/L (98-107) Carbon Dioxide Level 26 mmol/L (21-32) Anion Gap 14 (6-14) Blood Urea Nitrogen 48 mg/dL (8-26) Creatinine 1.6 mg/dL (0.7-1.3) Estimated GFR (Cockcroft-Gault) 43.5 Glucose Level 188 mg/dL (70-99) Calcium Level 9.6 mg/dL (8.5-10.1) Test 11/01/19 05:20 Sodium Level 150 mmol/L (136-145) Potassium Level 2.9 mmol/L (3.5-5.1) Chloride Level 115 mmol/L (98-107) Carbon Dioxide Level 23 mmol/L (21-32) Anion Gap 12 (6-14) Blood Urea Nitrogen 43 mg/dL (8-26) Creatinine 1.3 mg/dL (0.7-1.3) Estimated GFR (Cockcroft-Gault) 55.2 BUN/Creatinine Ratio 33 (6-20) Glucose Level 199 mg/dL (70-99) Calcium Level 9.4 mg/dL (8.5-10.1) Total Bilirubin 0.3 mg/dL (0.2-1.0) Aspartate Amino Transf (AST/SGOT) 22 U/L (15-37) Alanine Aminotransferase (ALT/SGPT) 27 U/L (16-63) Alkaline Phosphatase 110 U/L (46-116) Total Protein 6.7 g/dL (6.4-8.2) Albumin 2.5 g/dL (3.4-5.0) Albumin/Globulin Ratio 0.6 (1.0-1.7) Laboratory Tests Test 11/01/19 05:10 11/01/19 05:20 White Blood Count 14.1 x10^3/uL (4.0-11.0) Red Blood Count 4.33 x10^6/uL (4.30-5.70) Hemoglobin 11.6 g/dL (13.0-17.5) Hematocrit 35.8 % (39.0-53.0) Mean Corpuscular Volume 83 fL (79-100) Mean Corpuscular Hemoglobin 27 pg (25-35) Mean Corpuscular Hemoglobin Concent 33 g/dL (31-37) Red Cell Distribution Width 14.9 % (11.5-14.5) Platelet Count 228 x10^3/uL (140-400) Neutrophils (%) (Auto) 92 % (31-73) Lymphocytes (%) (Auto) 5 % (24-48) Monocytes (%) (Auto) 3 % (0-9) Eosinophils (%) (Auto) 0 % (0-3) Basophils (%) (Auto) 0 % (0-3) Neutrophils # (Auto) 13.0 x10^3/uL (1.8-7.7) Lymphocytes # (Auto) 0.7 x10^3/uL (1.0-4.8) Monocytes # (Auto) 0.4 x10^3/uL (0.0-1.1) Eosinophils # (Auto) 0.0 x10^3/uL (0.0-0.7) Basophils # (Auto) 0.0 x10^3/uL (0.0-0.2) Sodium Level 150 mmol/L (136-145) Potassium Level 2.9 mmol/L (3.5-5.1) Chloride Level 115 mmol/L (98-107) Carbon Dioxide Level 23 mmol/L (21-32) Anion Gap 12 (6-14) Blood Urea Nitrogen 43 mg/dL (8-26) Creatinine 1.3 mg/dL (0.7-1.3) Estimated GFR (Cockcroft-Gault) 55.2 BUN/Creatinine Ratio 33 (6-20) Glucose Level 199 mg/dL (70-99) Calcium Level 9.4 mg/dL (8.5-10.1) Total Bilirubin 0.3 mg/dL (0.2-1.0) Aspartate Amino Transf (AST/SGOT) 22 U/L (15-37) Alanine Aminotransferase (ALT/SGPT) 27 U/L (16-63) Alkaline Phosphatase 110 U/L (46-116) Total Protein 6.7 g/dL (6.4-8.2) Albumin 2.5 g/dL (3.4-5.0) Albumin/Globulin Ratio 0.6 (1.0-1.7) Microbiology 10/30/19 Blood Culture - Final, Complete Medications Current Medications Sodium Chloride 1,000 ml @ 2,000 mls/hr 1X ONCE IV Last administered on 0at 18:13; Start 10/30/19 at 17:30; Stop 10/30/19 at 17:59; Status DC Potassium Chloride/Water 100 ml @ 50 mls/hr 1X ONCE IV Last administered on 10/30/19at 18:20; Start 10/30/19 at 18:30; Stop 10/30/19 at 20:29; Status DC Fentanyl Citrate (Fentanyl 2ml Vial) 50 mcg 1X ONCE IVP Last administered on 10/30/19at 18:41; Start 10/30/19 at 18:30; Stop 10/30/19 at 18:39; Status DC Fentanyl Citrate (Fentanyl 2ml Vial) 100 mcg STK-MED ONCE .ROUTE ; Start 10/30/19 at 18:39; Stop 10/30/19 at 18:40; Status DC Sodium Chloride (Normal Saline Flush) 3 ml QSHIFT PRN IV AFTER MEDS AND BLOOD DRAWS; Start 10/30/19 at 19:15 Sodium Chloride 1,000 ml @ 999 mls/hr Q1H1M STAT IV Last administered on 10/30/19at 19:42; Start 10/30/19 at 19:06; Stop 10/30/19 at 20:06; Status DC Labetalol HCl (Normodyne Iv Push) 10 mg 1X ONCE IVP Last administered on 10/30/19at 19:55; Start 10/30/19 at 20:00; Stop 10/30/19 at 20:01; Status DC Dexamethasone Sodium Phosphate (Decadron) 10 mg 1X ONCE IV Last administered on 10/30/19at 20:12; Start 10/30/19 at 20:15; Stop 10/30/19 at 20:16; Status DC Ondansetron HCl (Zofran) 4 mg PRN Q8HRS PRN IV NAUSEA/VOMITING; Start 10/30/19 at 20:30; Stop 10/31/19 at 20:29; Status DC Morphine Sulfate (Morphine Sulfate) 2 mg PRN Q2HR PRN IV PAIN; Start 10/30/19 at 20:30; Stop 10/31/19 at 20:29; Status DC Sodium Chloride 1,000 ml @ 125 mls/hr Q8H IV Last administered on 10/30/19at 23:08; Start 10/30/19 at 20:19; Stop 10/31/19 at 10:06; Status DC Acetaminophen (Tylenol) 650 mg PRN Q4HRS PRN PO FEVER > 100.3'F; Start 10/30/19 at 20:30; Stop 10/31/19 at 20:29; Status DC Dexamethasone Sodium Phosphate (Decadron) 4 mg Q6H IV ; Start 10/30/19 at 20:30; Stop 10/30/19 at 22:55; Status DC Dexamethasone Sodium Phosphate (Decadron) 4 mg Q6H IV Last administered on 11/01/19at 04:58; Start 10/30/19 at 22:55 Nicardipine HCl 50 mg/Sodium Chloride 250 ml @ 25 mls/hr CONT PRN IV SEE I/O RECORD Last administered on 11/01/19at 07:39; Start 10/31/19 at 00:45 Clonidine HCl (Catapres Tts-2) 1 patch 1X ONCE TD Last administered on 10/31/19at 01:31; Start 10/31/19 at 01:15; Stop 10/31/19 at 01:16; Status DC Metoprolol Tartrate (Lopressor) 25 mg BID PO Last administered on 11/01/19at 08:5 3; Start 10/31/19 at 10:00; Stop 11/01/19 at 11:09; Status DC Sodium Chloride 1,000 ml @ 100 mls/hr Q10H IV Last administered on 10/31/19at 11:00; Start 10/31/19 at 11:00; Stop 10/31/19 at 13:01; Status DC Potassium Chloride/Sodium Chloride 1,000 ml @ 75 mls/hr [id number] IV Last administered on 11/01/19at 04:15; Start 10/31/19 at 13:00 Hydralazine HCl (Apresoline Inj) 10 mg PRN Q4HRS PRN IVP ELEVATED BP, SEE COMMENTS Last administered on 10/31/19at 20:21; Start 10/31/19 at 14:30 Daptomycin 440 mg/ Sodium Chloride 50 ml @ 100 mls/hr ONCE ONCE IV Last administered on 10/31/19at 21:47; Start 10/31/19 at 21:30; Stop 10/31/19 at 22:00; Status DC Potassium Chloride (Klor-Con) 40 meq 1X ONCE PO Last administered on 11/01/19at 08:53; Start 11/01/19 at 08:45; Stop 11/01/19 at 08:46; Status DC Potassium Chloride (Klor-Con) 40 meq 1X ONCE PO ; Start 11/01/19 at 11:00; Stop 11/01/19 at 11:01; Status DC Potassium Chloride (Klor-Con) 40 meq 1X ONCE PO ; Start 11/01/19 at 13:00; Stop 11/01/19 at 13:01 Daptomycin 450 mg/ Sodium Chloride 50 ml @ 100 mls/hr Q24H IV ; Start 11/01/19 at 21:30 Ampicillin Sodium 2 gm/Sodium Chloride 100 ml @ 200 mls/hr Q4HRS IV ; Start 11/01/19 at 12:00 Linezolid/Dextrose 300 ml @ 300 mls/hr Q12HR IV Last administered on 11/01/19at 10:09; Start 11/01/19 at 10:00 Amlodipine Besylate (Norvasc) 10 mg DAILY PO ; Start 11/01/19 at 12:00 Hydrochlorothiazide (Hydrodiuril) 25 mg DAILY PO ; Start 11/01/19 at 12:00 Metoprolol Tartrate (Lopressor) 100 mg BID PO ; Start 11/01/19 at 21:00 Losartan Potassium (Cozaar) 100 mg DAILY PO ; Start 11/01/19 at 12:00 Metoprolol Tartrate (Lopressor) 25 mg 1X ONCE PO ; Start 11/01/19 at 11:15; Stop 11/01/19 at 11:16 Metoprolol Tartrate (Lopressor) 50 mg 1X ONCE PO ; Start 11/01/19 at 11:15; Stop 11/01/19 at 11:16 Active Scripts Active Reported Magnesium (Magnesium Oxide) 400 Mg Capsule 400 Mg PO BID Hydrochlorothiazide 25 Mg Tablet 25 Mg PO DAILY Klor-Con 10 (Potassium Chloride) 10 Meq Tablet.er 10 Mcg PO TID Losartan Potassium 100 Mg Tablet 30 Mg PO DAILY Amlodipine Besylate 10 Mg Tablet 10 Mg PO DAILY Metoprolol Tartrate 50 Mg Tablet 100 Mg PO BID Xarelto (Rivaroxaban) 20 Mg Tablet 20 Mg PO DAILY Vitals/I & O Vital Sign - Last 24 Hours 10/31/19 10/31/19 10/31/19 10/31/19 12:00 12:00 13:00 14:00 Temp 98.6 98.6 Pulse 99 108 110 Resp 20 16 20 B/P (MAP) 162/95 (117) 162/95 (117) 160/85 (110) Pulse Ox 98 97 98 O2 Delivery Room Air Room Air Room Air Room Air 10/31/19 10/31/19 10/31/19 10/31/19 14:57 15:00 16:00 16:00 Temp 98.0 98.0 Pulse 108 124 99 Resp 20 B/P (MAP) 184/92 184/92 (122) 140/89 (106) Pulse Ox 98 98 O2 Delivery Room Air Room Air Room Air 10/31/19 10/31/19 10/31/19 10/31/19 17:00 18:00 19:00 19:30 Pulse 124 110 130 128 Resp B/P (MAP) 160/75 (103) 123/72 (89) 222/170 (187) 187/97 (127) Pulse Ox 98 97 98 94 O2 Delivery Room Air Room Air Room Air Room Air 10/31/19 10/31/19 10/31/19 10/31/19 19:34 20:00 20:00 20:21 Temp 98.9 98.9 Pulse 126 126 122 Resp 24 B/P (MAP) 192/95 193/95 (127) 192/87 Pulse Ox 95 O2 Delivery Room Air Room Air 10/31/19 10/31/19 10/31/19 10/31/19 20:30 21:00 21:15 21:30 Pulse 124 126 122 124 Resp 24 B/P (MAP) 171/90 (117) 184/89 (120) 178/88 (118) 187/85 (119) Pulse Ox 96 95 96 95 O2 Delivery Room Air Room Air Room Air Room Air 10/31/19 10/31/19 10/31/19 10/31/19 21:45 22:00 22:30 23:00 Pulse 126 130 122 100 Resp 22 B/P (MAP) 166/81 (109) 144/83 (103) 154/78 (103) 163/78 (106) Pulse Ox 94 95 95 95 O2 Delivery Room Air Room Air Room Air Room Air 10/31/19 10/31/19 11/01/19 11/01/19 23:30 23:59 00:30 01:00 Temp 98.7 98.7 Pulse 102 102 102 98 Resp 20 B/P (MAP) 167/81 (109) 170/79 (109) 149/78 (101) 146/89 (108) Pulse Ox 95 95 95 94 O2 Delivery Room Air Room Air Room Air Room Air 11/01/19 11/01/19 11/01/19 11/01/19 02:00 02:30 03:00 03:30 Pulse 106 107 110 108 Resp 22 B/P (MAP) 179/81 (113) 176/83 (114) 139/78 (98) 162/79 (106) Pulse Ox 95 94 96 97 O2 Delivery Room Air Room Air Room Air Room Air 11/01/19 11/01/19 11/01/19 11/01/19 04:00 04:30 05:00 06:00 Temp 98.0 98.0 Pulse 112 100 97 110 Resp 18 B/P (MAP) 169/70 (103) 149/75 (99) 139/70 (93) 170/75 (106) Pulse Ox 96 95 94 95 O2 Delivery Room Air Room Air Room Air Room Air 11/01/19 11/01/19 11/01/19 11/01/19 06:30 07:00 07:30 08:53 Pulse 111 111 112 115 Resp 18 B/P (MAP) 165/69 (101) 174/75 (108) 124/91 (102) Pulse Ox 95 95 95 O2 Delivery Room Air Room Air Room Air 11/01/19 09:04 Pulse 118 Resp 18 B/P (MAP) 162/74 (103) Pulse Ox 96 O2 Delivery Room Air Intake and Output 10/31/19 10/31/19 11/01/19 15:00 23:00 07:00 Intake Total 500 ml 1770 ml 2124 ml Output Total 615 ml 850 ml 1570 ml Balance -115 ml 920 ml 554 ml MITCH WISDOM MD November 01, 2019 11:19
--- NOTE | 2019-11-01 11:22 | CONS ---
DATE OF CONSULTATION: 11/01/2019 PATIENT'S ROOM: ICU 10. REQUESTING PHYSICIAN: Dr. Soares. REASON FOR CONSULTATION: Bacteremia. HISTORY OF PRESENT ILLNESS: The patient is a 64-year-old gentleman with history of stage 4 colon cancer, undergoing chemotherapy at [facility]. He states last treatment was approximately 2-1/2 weeks ago and did receive an IV treatment, although he supposed to be started on oral therapy shortly. Additionally, he has a chronic abdominal wound with suspected underlying infected mesh and [facility] and is followed by Dr. Clarke over at . In his last admission, he was admitted for MSSA sepsis and has his Port-A-Cath removed on 08/05/2019, and also had influenza B at that time. He states he was at home, he was in his normal state of health and his neighbor came to knock on the door. He states that he was going down the stairs to answer the door, she began to knock more aggressively, he became concerned that something may be happening, so he hurried up and he slipped on the stairs. He did not hit his head. He was not having any fevers, chills or sweats. No headaches. He denies being ill in any way, but he states he was too weak to get up and he was brought to [facility] on 10/30/2019. He had a white count of 13.9 with 83 segs. His creatinine at that time was 2 and his troponin was elevated. At that time, he had a Saravia placed, but his urinalysis was clean. He had a low-grade temperature of 99.4 on arrival, but his blood pressure was 199/105. He underwent a CT scan of his head, which revealed a large area of edema in the superior right frontal lobe. Differentials considered were underlying intraaxial mass versus edema from cerebritis. He has since been placed on dexamethasone. Last evening, blood culture obtained on the second, one of 2 bottles came back positive for gram-positive cocci in pairs and chains suggestive of strep. He was given a dose of daptomycin. Currently, the patient is lying in bed. He denies any current weakness. No change in vision. No sore throat or cough. He is not short of air. Denies any nausea or vomiting. Denies any problems passing his urine prior to coming in, although he does now have a Saravia in place. Denies any pain around his abdominal wound and no increased output from an ostomy. 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 Again, he has got colon cancer, hypertension, degenerative joint disease, and history of UTIs in the past. PAST SURGICAL HISTORY: Positive for colon resection, ostomy, hernia repair with mesh, debridement of the gangrene and also had Port-A-Cath removal. REVIEW OF SYSTEMS: Otherwise negative. ALLERGIES: No known drug allergies. SOCIAL HISTORY: Lives at home. No tobacco. Retired from [employer]. No pets. FAMILY HISTORY: Noncontributory as he is adopted. CURRENT MEDICATIONS: Again, he received a dose of daptomycin last evening. He is on nicardipine drip, dexamethasone, hydralazine, and metoprolol. PHYSICAL EXAMINATION: VITAL SIGNS: Current temperature is 98, T-max has been 99.4 axillary, pulse 111, respirations 20, blood pressure 174/75, and satting 95% on room air. CONSTITUTIONAL: He is lying in bed. He is cooperative. He is in no acute distress. HEENT: Pupils are equal. He has normal conjunctivae. Oral cavity, pharynx is clear, but he has questionable dentition. NECK: Supple, no JVD. LUNGS: Clear to auscultation. HEART: S1, S2. Previous Port-A-Cath site without complications. ABDOMEN: Soft and nontender. No guarding. Positive bowel sounds. Ostomy without signs of any complications. Abdominal wound without signs of gross infection or some scabbed areas. EXTREMITIES: No clubbing, cyanosis or gross edema. GENITOURINARY: He does have a Saravia in place. SKIN: Warm to touch without signs of rash. NEUROLOGIC: He is alert, answering questions appropriately. PSYCHIATRIC: Affect is appropriate. LABORATORY DATA: Current white count 14.1, hemoglobin 11.6, platelets of 228, and neutrophils are 92. Creatinine is 13 and glucose 199. He has normal liver function study tests. Urinalysis was clean. CT scan of the head reviewed in history of present illness. IMPRESSION: 1. Bacteremia / bottles from 10/29, questionable strep, but could be possibly enterococcus. He did get daptomycin last evening. 2. Leukocytosis, currently on dexamethasone. 3. Large area of edema in the superior right frontal lobe with the above-mentioned differential. 4. Fever. 5. Colon cancer, metastatic, undergoing chemotherapy at with last chemo approximately 2.5 weeks ago. 6. Chronic abdominal wound with history of infected abdominal mesh followed by Dr. Clarke at [facility], currently does not look infected. 7. Poor dentition. 8. Hypertension 9. Hyperkalemia. 10. History of acute kidney injury. 11. History of methicillin-sensitive Staphylococcus aureus bacteremia with Port-A-Cath removal on 08/05/2019. 12. History of influenza B. RECOMMENDATIONS: We will continue daptomycin given his history of acute kidney injury. He is at risk for VRE with his recent hospitalizations. He is on room air, not short of air and he has no cough, but we will add Zyvox given the brain mass and also add ampicillin given the brain mass. We will follow up MRI of the head and CT chest, abdomen and pelvis. We will follow up labs in a.m. as well as cultures, electrolytes per primary. Consult wound care and followup on his COVID. He is critically ill. I spent 35 minutes critical care time. This was discussed with Dr. Barbosa as well as nursing. [place] MD DR: NATALIE/you JOB#: [id number] / [id number] MELISSA
[2019-11-01] MEDS: hydroCHLOROthiazide 25 MG TABLET PO SCH (11:49)
[2019-11-01] MEDS: LOSARTAN POTASSIUM 50 MG TABLET. PO SCH ×2 (11:49→13:59)
[2019-11-01] MEDS: amLODIPine BESYLATE 10 MG TABLET PO SCH ×2 (11:52→13:58)
[2019-11-01] MEDS: AMPICILLIN SODIUM 2 GM in IV NORMAL SALINE 100ML 100 ML IV SCH ×4 (12:00→22:58)
--- NOTE | 2019-11-01 13:32 | NUR ---
SS following for discharge planning. SS reviewed pt chart and discussed with RN, Janet. Pt is from home and is currently on room air. Pt is COVID19 test pending. Per pt's RN, pt is hypertensive and has low potassium. Pt's RN tapering cardene drip. SS will continue to follow for discharge planning.
--- NOTE | 2019-11-01 13:49 | PDOC ---
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 Clarke at [facility] currently seems asymptomatic Hyponatremia secondary to severe dehydration Acute renal failure vasomotor etiology most likely Generalized weakness and deconditioning Bacteremia 1 of 2 bottles questionable strep will continue to follow results of culture Leukocytosis most likely secondary to demargination from steroids Acute febrile illness trying to rule out COVID-19 Essential hypertension Plan Follow results of COVID-19 Currently hemodynamically stable Seems to be awake oriented in person time place and situation Supportive measures Further recommendations based on the clinical course He has an MRI of the head and CT of the chest abdomen pelvis pending results of his COVID-19 testing as per protocol Reassess in the a.m. History of Present Illness History of Present Illness No acute events reported overnight, case discussed with nursing staff patient in no acute distress no complaints during my visit Vitals Vitals Vital Signs Date Time Temp Pulse Resp B/P (MAP) Pulse Ox O2 Delivery O2 Flow Rate FiO2 11/01/19 13:00 101 139/55 (83) 95 11/01/19 12:11 98.2 18 Room Air 98.2 Physical Exam Physical Exam CONSTITUTIONAL: He is lying in bed. He is cooperative. He is in no acute distress. HEENT: Pupils are equal. He has normal conjunctivae. Oral cavity, pharynx is clear, but he has questionable dentition. NECK: Supple, no JVD. LUNGS: Clear to auscultation. HEART: S1, S2. Previous Port-A-Cath site without complications. ABDOMEN: Soft and nontender. No guarding. Positive bowel sounds. Ostomy without signs of any complications. Abdominal wound without signs of gross infection or some scabbed areas. EXTREMITIES: No clubbing, cyanosis or gross edema. GENITOURINARY: He does have a Saravia in place. SKIN: Warm to touch without signs of rash. NEUROLOGIC: He is alert, answering questions appropriately. PSYCHIATRIC: Affect is appropriate. Lungs: Clear Labs LABS Laboratory Tests Test 11/01/19 05:10 11/01/19 05:20 White Blood Count 14.1 x10^3/uL (4.0-11.0) Red Blood Count 4.33 x10^6/uL (4.30-5.70) Hemoglobin 11.6 g/dL (13.0-17.5) Hematocrit 35.8 % (39.0-53.0) Mean Corpuscular Volume 83 fL (79-100) Mean Corpuscular Hemoglobin 27 pg (25-35) Mean Corpuscular Hemoglobin Concent 33 g/dL (31-37) Red Cell Distribution Width 14.9 % (11.5-14.5) Platelet Count 228 x10^3/uL (140-400) Neutrophils (%) (Auto) 92 % (31-73) Lymphocytes (%) (Auto) 5 % (24-48) Monocytes (%) (Auto) 3 % (0-9) Eosinophils (%) (Auto) 0 % (0-3) Basophils (%) (Auto) 0 % (0-3) Neutrophils # (Auto) 13.0 x10^3/uL (1.8-7.7) Lymphocytes # (Auto) 0.7 x10^3/uL (1.0-4.8) Monocytes # (Auto) 0.4 x10^3/uL (0.0-1.1) Eosinophils # (Auto) 0.0 x10^3/uL (0.0-0.7) Basophils # (Auto) 0.0 x10^3/uL (0.0-0.2) Sodium Level 150 mmol/L (136-145) Potassium Level 2.9 mmol/L (3.5-5.1) Chloride Level 115 mmol/L (98-107) Carbon Dioxide Level 23 mmol/L (21-32) Anion Gap 12 (6-14) Blood Urea Nitrogen 43 mg/dL (8-26) Creatinine 1.3 mg/dL (0.7-1.3) Estimated GFR (Cockcroft-Gault) 55.2 BUN/Creatinine Ratio 33 (6-20) Glucose Level 199 mg/dL (70-99) Calcium Level 9.4 mg/dL (8.5-10.1) Total Bilirubin 0.3 mg/dL (0.2-1.0) Aspartate Amino Transf (AST/SGOT) 22 U/L (15-37) Alanine Aminotransferase (ALT/SGPT) 27 U/L (16-63) Alkaline Phosphatase 110 U/L (46-116) Total Protein 6.7 g/dL (6.4-8.2) Albumin 2.5 g/dL (3.4-5.0) Albumin/Globulin Ratio 0.6 (1.0-1.7) Review of Systems Review of Systems Pertinent as per HPI otherwise 10 point review of system is negative Assessment and Plan Assessmemt and Plan Problems Medical Problems: (1) [id number] kidney injury Status: Acute (2) Cerebral mass Status: Acute (3) Elevated troponin I level Status: Acute (4) Hypokalemia Status: Acute (5) Left-sided weakness Status: Acute Comment Review of Relevant I have reviewed the following items renetta (where applicable) has been applied. Labs Laboratory Tests Test 10/30/19 17:28 10/30/19 17:30 10/30/19 18:40 10/30/19 21:00 O2 Saturation 94 % (92-99) Arterial Blood pH 7.44 (7.35-7.45) Arterial Blood pCO2 at Patient Temp 34 mmHg (35-46) Arterial Blood pO2 at Patient Temp 72 mmHg (65-108) Arterial Blood HCO3 23 mmol/L (21-28) Arterial Blood Base Excess 0 mmol/L (-3-3) FiO2 21 White Blood Count 13.9 x10^3/uL (4.0-11.0) Red Blood Count 5.05 x10^6/uL (4.30-5.70) Hemoglobin 13.7 g/dL (13.0-17.5) Hematocrit 41.5 % (39.0-53.0) Mean Corpuscular Volume 82 fL (79-100) Mean Corpuscular Hemoglobin 27 pg (25-35) Mean Corpuscular Hemoglobin Concent 33 g/dL (31-37) Red Cell Distribution Width 14.5 % (11.5-14.5) Platelet Count 318 x10^3/uL (140-400) Neutrophils (%) (Auto) 83 % (31-73) Lymphocytes (%) (Auto) 6 % (24-48) Monocytes (%) (Auto) 10 % (0-9) Eosinophils (%) (Auto) 1 % (0-3) Basophils (%) (Auto) 0 % (0-3) Neutrophils # (Auto) 11.5 x10^3/uL (1.8-7.7) Lymphocytes # (Auto) 0.8 x10^3/uL (1.0-4.8) Monocytes # (Auto) 1.4 x10^3/uL (0.0-1.1) Eosinophils # (Auto) 0.1 x10^3/uL (0.0-0.7) Basophils # (Auto) 0.0 x10^3/uL (0.0-0.2) Prothrombin Time 15.6 SEC (11.7-14.0) Prothromb Time International Ratio 1.3 (0.8-1.1) Sodium Level 154 mmol/L (136-145) Potassium Level 2.7 mmol/L (3.5-5.1) Chloride Level 113 mmol/L (98-107) Carbon Dioxide Level 29 mmol/L (21-32) Anion Gap 12 (6-14) Blood Urea Nitrogen 59 mg/dL (8-26) Creatinine 2.0 mg/dL (0.7-1.3) Estimated GFR (Cockcroft-Gault) 33.6 BUN/Creatinine Ratio 30 (6-20) Glucose Level 153 mg/dL (70-99) Lactic Acid Level 2.1 mmol/L (0.4-2.0) 1.2 mmol/L (0.4-2.0) Calcium Level 10.1 mg/dL (8.5-10.1) Magnesium Level 2.8 mg/dL (1.8-2.4) Total Bilirubin 0.5 mg/dL (0.2-1.0) Aspartate Amino Transf (AST/SGOT) 39 U/L (15-37) Alanine Aminotransferase (ALT/SGPT) 28 U/L (16-63) Alkaline Phosphatase 137 U/L (46-116) Creatine Kinase 613 U/L (39-308) Troponin I Quantitative 0.153 ng/mL (0.000-0.055) Total Protein 8.2 g/dL (6.4-8.2) Albumin 3.2 g/dL (3.4-5.0) Albumin/Globulin Ratio 0.6 (1.0-1.7) Lipase 342 U/L (73-393) Thyroid Stimulating Hormone (TSH) 0.265 uIU/mL (0.358-3.74) Urine Collection Type Unknown Urine Color Yellow Urine Clarity Cloudy Urine pH 5.5 (<5.0-8.0) Urine Specific [place] 1.020 (1.000-1.030) Urine Protein >=300 mg/dL (NEG-TRACE) Urine Glucose (UA) Negative mg/dL (NEG) Urine Ketones (Stick) Negative mg/dL (NEG) Urine Blood Moderate (NEG) Urine Nitrite Negative (NEG) Urine Bilirubin Negative (NEG) Urine Urobilinogen Dipstick 0.2 mg/dL (0.2 mg/dL) Urine Leukocyte Esterase Small (NEG) Urine RBC 0 /HPF (0-2) Urine WBC 0 /HPF (0-4) Urine Squamous Epithelial Cells Occ /LPF Urine Amorphous Sediment Present /HPF Urine Bacteria 0 /HPF (0-FEW) Urine Hyaline Casts Moderate /HPF Urine Mucus Slight /LPF Test 10/31/19 00:01 10/31/19 02:45 10/31/19 03:45 11/01/19 05:10 Troponin I Quantitative 0.166 ng/mL (0.000-0.055) 0.119 ng/mL (0.000-0.055) White Blood Count 11.2 x10^3/uL (4.0-11.0) 14.1 x10^3/uL (4.0-11.0) Red Blood Count 5.16 x10^6/uL (4.30-5.70) 4.33 x10^6/uL (4.30-5.70) Hemoglobin 13.8 g/dL (13.0-17.5) 11.6 g/dL (13.0-17.5) Hematocrit 42.9 % (39.0-53.0) 35.8 % (39.0-53.0) Mean Corpuscular Volume 83 fL (79-100) 83 fL (79-100) Mean Corpuscular Hemoglobin 27 pg (25-35) 27 pg (25-35) Mean Corpuscular Hemoglobin Concent 32 g/dL (31-37) 33 g/dL (31-37) Red Cell Distribution Width 15.1 % (11.5-14.5) 14.9 % (11.5-14.5) Platelet Count 282 x10^3/uL (140-400) 228 x10^3/uL (140-400) Neutrophils (%) (Auto) 93 % (31-73) 92 % (31-73) Lymphocytes (%) (Auto) 4 % (24-48) 5 % (24-48) Monocytes (%) (Auto) 3 % (0-9) 3 % (0-9) Eosinophils (%) (Auto) 0 % (0-3) 0 % (0-3) Basophils (%) (Auto) 0 % (0-3) 0 % (0-3) Neutrophils # (Auto) 10.4 x10^3/uL (1.8-7.7) 13.0 x10^3/uL (1.8-7.7) Lymphocytes # (Auto) 0.5 x10^3/uL (1.0-4.8) 0.7 x10^3/uL (1.0-4.8) Monocytes # (Auto) 0.3 x10^3/uL (0.0-1.1) 0.4 x10^3/uL (0.0-1.1) Eosinophils # (Auto) 0.0 x10^3/uL (0.0-0.7) 0.0 x10^3/uL (0.0-0.7) Basophils # (Auto) 0.0 x10^3/uL (0.0-0.2) 0.0 x10^3/uL (0.0-0.2) Segmented Neutrophils % 84 % (35-66) Band Neutrophils % 10 % (0-9) Lymphocytes % 3 % (24-48) Monocytes % 2 % (0-10) Metamyelocytes % 1 % (0-0) Platelet Estimate Adequate (ADEQUATE) Anisocytosis Slight Sodium Level 157 mmol/L (136-145) Potassium Level 3.2 mmol/L (3.5-5.1) Chloride Level 117 mmol/L (98-107) Carbon Dioxide Level 26 mmol/L (21-32) Anion Gap 14 (6-14) Blood Urea Nitrogen 48 mg/dL (8-26) Creatinine 1.6 mg/dL (0.7-1.3) Estimated GFR (Cockcroft-Gault) 43.5 Glucose Level 188 mg/dL (70-99) Calcium Level 9.6 mg/dL (8.5-10.1) Test 11/01/19 05:20 Sodium Level 150 mmol/L (136-145) Potassium Level 2.9 mmol/L (3.5-5.1) Chloride Level 115 mmol/L (98-107) Carbon Dioxide Level 23 mmol/L (21-32) Anion Gap 12 (6-14) Blood Urea Nitrogen 43 mg/dL (8-26) Creatinine 1.3 mg/dL (0.7-1.3) Estimated GFR (Cockcroft-Gault) 55.2 BUN/Creatinine Ratio 33 (6-20) Glucose Level 199 mg/dL (70-99) Calcium Level 9.4 mg/dL (8.5-10.1) Total Bilirubin 0.3 mg/dL (0.2-1.0) Aspartate Amino Transf (AST/SGOT) 22 U/L (15-37) Alanine Aminotransferase (ALT/SGPT) 27 U/L (16-63) Alkaline Phosphatase 110 U/L (46-116) Total Protein 6.7 g/dL (6.4-8.2) Albumin 2.5 g/dL (3.4-5.0) Albumin/Globulin Ratio 0.6 (1.0-1.7) Laboratory Tests Test 11/01/19 05:10 11/01/19 05:20 White Blood Count 14.1 x10^3/uL (4.0-11.0) Red Blood Count 4.33 x10^6/uL (4.30-5.70) Hemoglobin 11.6 g/dL (13.0-17.5) Hematocrit 35.8 % (39.0-53.0) Mean Corpuscular Volume 83 fL (79-100) Mean Corpuscular Hemoglobin 27 pg (25-35) Mean Corpuscular Hemoglobin Concent 33 g/dL (31-37) Red Cell Distribution Width 14.9 % (11.5-14.5) Platelet Count 228 x10^3/uL (140-400) Neutrophils (%) (Auto) 92 % (31-73) Lymphocytes (%) (Auto) 5 % (24-48) Monocytes (%) (Auto) 3 % (0-9) Eosinophils (%) (Auto) 0 % (0-3) Basophils (%) (Auto) 0 % (0-3) Neutrophils # (Auto) 13.0 x10^3/uL (1.8-7.7) Lymphocytes # (Auto) 0.7 x10^3/uL (1.0-4.8) Monocytes # (Auto) 0.4 x10^3/uL (0.0-1.1) Eosinophils # (Auto) 0.0 x10^3/uL (0.0-0.7) Basophils # (Auto) 0.0 x10^3/uL (0.0-0.2) Sodium Level 150 mmol/L (136-145) Potassium Level 2.9 mmol/L (3.5-5.1) Chloride Level 115 mmol/L (98-107) Carbon Dioxide Level 23 mmol/L (21-32) Anion Gap 12 (6-14) Blood Urea Nitrogen 43 mg/dL (8-26) Creatinine 1.3 mg/dL (0.7-1.3) Estimated GFR (Cockcroft-Gault) 55.2 BUN/Creatinine Ratio 33 (6-20) Glucose Level 199 mg/dL (70-99) Calcium Level 9.4 mg/dL (8.5-10.1) Total Bilirubin 0.3 mg/dL (0.2-1.0) Aspartate Amino Transf (AST/SGOT) 22 U/L (15-37) Alanine Aminotransferase (ALT/SGPT) 27 U/L (16-63) Alkaline Phosphatase 110 U/L (46-116) Total Protein 6.7 g/dL (6.4-8.2) Albumin 2.5 g/dL (3.4-5.0) Albumin/Globulin Ratio 0.6 (1.0-1.7) Microbiology 10/30/19 Blood Culture - Final, Complete Medications Current Medications Sodium Chloride 1,000 ml @ 2,000 mls/hr 1X ONCE IV Last administered on 10/30/19at 18:13; Start 10/30/19 at 17:30; Stop 10/30/19 at 17:59; Status DC Potassium Chloride/Water 100 ml @ 50 mls/hr 1X ONCE IV Last administered on 10/30/19at 18:20; Start 10/30/19 at 18:30; Stop 10/30/19 at 20:29; Status DC Fentanyl Citrate (Fentanyl 2ml Vial) 50 mcg 1X ONCE IVP Last administered on 10/30/19at 18:41; Start 10/30/19 at 18:30; Stop 10/30/19 at 18:39; Status DC Fentanyl Citrate (Fentanyl 2ml Vial) 100 mcg STK-MED ONCE .ROUTE ; Start 10/30/19 at 18:39; Stop 10/30/19 at 18:40; Status DC Sodium Chloride (Normal Saline Flush) 3 ml QSHIFT PRN IV AFTER MEDS AND BLOOD DRAWS; Start 10/30/19 at 19:15 Sodium Chloride 1,000 ml @ 999 mls/hr Q1H1M STAT IV Last administered on 10/30/19at 19:42; Start 10/30/19 at 19:06; Stop 10/30/19 at 20:06; Status DC Labetalol HCl (Normodyne Iv Push) 10 mg 1X ONCE IVP Last administered on 10/30/19at 19:55; Start 10/30/19 at 20:00; Stop 10/30/19 at 20:01; Status DC Dexamethasone Sodium Phosphate (Decadron) 10 mg 1X ONCE IV Last administered on 10/30/19at 20:12; Start 10/30/19 at 20:15; Stop 10/30/19 at 20:16; Status DC Ondansetron HCl (Zofran) 4 mg PRN Q8HRS PRN IV NAUSEA/VOMITING; Start 10/30/19 at 20:30; Stop 10/31/19 at 20:29; Status DC Morphine Sulfate (Morphine Sulfate) 2 mg PRN Q2HR PRN IV PAIN; Start 10/30/19 at 20:30; Stop 10/31/19 at 20:29; Status DC Sodium Chloride 1,000 ml @ 125 mls/hr Q8H IV Last administered on 10/30/19at 23:08; Start 10/30/19 at 20:19; Stop 10/31/19 at 10:06; Status DC Acetaminophen (Tylenol) 650 mg PRN Q4HRS PRN PO FEVER > 100.3'F; Start 10/30/19 at 20:30; Stop 10/31/19 at 20:29; Status DC Dexamethasone Sodium Phosphate (Decadron) 4 mg Q6H IV ; Start 10/30/19 at 20:30; Stop 10/30/19 at 22:55; Status DC Dexamethasone Sodium Phosphate (Decadron) 4 mg Q6H IV Last administered on 11/01/19at 11:48; Start 10/30/19 at 22:55 Nicardipine HCl 50 mg/Sodium Chloride 250 ml @ 25 mls/hr CONT PRN IV SEE I/O RECORD Last administered on 11/01/19at 07:39; Start 10/31/19 at 00:45 Clonidine HCl (Catapres Tts-2) 1 patch 1X ONCE TD Last administered on 10/31/19at 01:31; Start 10/31/19 at 01:15; Stop 10/31/19 at 01:16; Status DC Metoprolol Tartrate (Lopressor) 25 mg BID PO Last administered on 11/01/19at 08:53; Start 10/31/19 at 10:00; Stop 11/01/19 at 11:09; Status DC Sodium Chloride 1,000 ml @ 100 mls/hr Q10H IV Last administered on 10/31/19at 11:00; Start 10/31/19 at 11:00; Stop 10/31/19 at 13:01; Status DC Potassium Chloride/Sodium Chloride 1,000 ml @ 75 mls/hr [id number] IV Last administered on 11/01/19at 04:15; Start 10/31/19 at 13:00 Hydralazine HCl (Apresoline Inj) 10 mg PRN Q4HRS PRN IVP ELEVATED BP, SEE COMMENTS Last administered on 10/31/19at 20:21; Start 10/31/19 at 14:30 Daptomycin 440 mg/ Sodium Chloride 50 ml @ 100 mls/hr ONCE ONCE IV Last administered on 10/31/19at 21:47; Start 10/31/19 at 21:30; Stop 10/31/19 at 22:00; Status DC Potassium Chloride (Klor-Con) 40 meq 1X ONCE PO Last administered on 11/01/19at 08:53; Start 11/01/19 at 08:45; Stop 11/01/19 at 08:46; Status DC Potassium Chloride (Klor-Con) 40 meq 1X ONCE PO Last administered on 11/01/19at 11:49; Start 11/01/19 at 11:00; Stop 11/01/19 at 11:01; Status DC Potassium Chloride (Klor-Con) 40 meq 1X ONCE PO ; Start 11/01/19 at 13:00; Stop 11/01/19 at 13:01; Status DC Daptomycin 450 mg/ Sodium Chloride 50 ml @ 100 mls/hr Q24H IV ; Start 11/01/19 at 21:30 Ampicillin Sodium 2 gm/Sodium Chloride 100 ml @ 200 mls/hr Q4HRS IV ; Start 11/01/19 at 12:00 Linezolid/Dextrose 300 ml @ 300 mls/hr Q12HR IV Last administered on 11/01/19at 10:09; Start 11/01/19 at 10:00 Amlodipine Besylate (Norvasc) 10 mg DAILY PO ; Start 11/01/19 at 12:00 Hydrochlorothiazide (Hydrodiuril) 25 mg DAILY PO Last administered on 11/01/19at 11:49; Start 11/01/19 at 12:00 Metoprolol Tartrate (Lopressor) 100 mg BID PO ; Start 11/01/19 at 21:00 Losartan Potassium (Cozaar) 100 mg DAILY PO ; Start 11/01/19 at 12:00 Metoprolol Tartrate (Lopressor) 25 mg 1X ONCE PO Last administered on 11/01/19at 11:50; Start 11/01/19 at 11:15; Stop 11/01/19 at 11:16; Status DC Metoprolol Tartrate (Lopressor) 50 mg 1X ONCE PO Last administered on 11/01/19at 11:48; Start 11/01/19 at 11:15; Stop 11/01/19 at 11:16; Status DC Active Scripts Active Reported Magnesium (Magnesium Oxide) 400 Mg Capsule 400 Mg PO BID Hydrochlorothiazide 25 Mg Tablet 25 Mg PO DAILY Klor-Con 10 (Potassium Chloride) 10 Meq Tablet.er 10 Mcg PO TID Losartan Potassium 100 Mg Tablet 30 Mg PO DAILY Amlodipine Besylate 10 Mg Tablet 10 Mg PO DAILY Metoprolol Tartrate 50 Mg Tablet 100 Mg PO BID Xarelto (Rivaroxaban) 20 Mg Tablet 20 Mg PO DAILY Vitals/I & O Vital Sign - Last 24 Hours 10/31/19 10/31/19 10/31/19 10/31/19 14:00 14:57 15:00 16:00 Temp 98.0 98.0 Pulse 110 108 124 99 Resp 20 20 20 B/P (MAP) 160/85 (110) 184/92 184/92 (122) 140/89 (106) Pulse Ox 98 98 98 O2 Delivery Room Air Room Air Room Air 10/31/19 10/31/19 10/31/19 10/31/19 16:00 17:00 18:00 19:00 Pulse 124 110 130 Resp 22 B/P (MAP) 160/75 (103) 123/72 (89) 222/170 (187) Pulse Ox 98 97 98 O2 Delivery Room Air Room Air Room Air Room Air 10/31/19 10/31/19 10/31/19 10/31/19 19:30 19:34 20:00 20:00 Temp 98.9 98.9 Pulse 128 126 126 Resp 24 B/P (MAP) 187/97 (127) 192/95 193/95 (127) Pulse Ox 94 95 O2 Delivery Room Air Room Air Room Air 10/31/19 10/31/19 10/31/19 10/31/19 20:21 20:30 21:00 21:15 Pulse 122 124 126 122 Resp 20 B/P (MAP) 192/87 171/90 (117) 184/89 (120) 178/88 (118) Pulse Ox 96 95 96 O2 Delivery Room Air Room Air Room Air 10/31/19 10/31/19 10/31/19 10/31/19 21:30 21:45 22:00 22:30 Pulse 124 126 130 122 Resp 24 24 24 24 B/P (MAP) 187/85 (119) 166/81 (109) 144/83 (103) 154/78 (103) Pulse Ox 95 94 95 95 O2 Delivery Room Air Room Air Room Air Room Air 10/31/19 10/31/19 10/31/19 11/01/19 23:00 23:30 23:59 00:30 Temp 98.7 98.7 Pulse 100 102 102 102 Resp 20 B/P (MAP) 163/78 (106) 167/81 (109) 170/79 (109) 149/78 (101) Pulse Ox 95 95 95 95 O2 Delivery Room Air Room Air Room Air Room Air 11/01/19 11/01/19 11/01/19 11/01/19 01:00 02:00 02:30 03:00 Pulse 98 106 107 110 Resp 24 B/P (MAP) 146/89 (108) 179/81 (113) 176/83 (114) 139/78 (98) Pulse Ox 94 95 94 96 O2 Delivery Room Air Room Air Room Air Room Air 11/01/19 11/01/19 11/01/19 11/01/19 03:30 04:00 04:30 05:00 Temp 98.0 98.0 Pulse 108 112 100 97 Resp 22 24 20 B/P (MAP) 162/79 (106) 169/70 (103) 149/75 (99) 139/70 (93) Pulse Ox 97 96 95 94 O2 Delivery Room Air Room Air Room Air Room Air 11/01/19 11/01/19 11/01/19 11/01/19 06:00 06:30 07:00 07:30 Pulse 110 111 111 112 Resp 18 20 18 B/P (MAP) 170/75 (106) 165/69 (101) 174/75 (108) 124/91 (102) Pulse Ox 95 95 95 95 O2 Delivery Room Air Room Air Room Air Room Air 11/01/19 11/01/19 11/01/19 11/01/19 08:00 08:10 08:53 09:04 Pulse 110 115 118 Resp 18 18 B/P (MAP) 164/76 (105) 162/74 (103) Pulse Ox 95 96 O2 Delivery Room Air Room Air Room Air 11/01/19 11/01/19 11/01/19 11/01/19 11:48 11:50 12:00 12:11 Temp 98.2 98.2 Pulse 90 90 94 118 Resp 18 B/P (MAP) 151/69 (96) 126/59 (81) Pulse Ox 96 O2 Delivery Room Air 11/01/19 13:00 Pulse 101 B/P (MAP) 139/55 (83) Pulse Ox 95 Intake and Output 10/31/19 10/31/19 11/01/19 15:00 23:00 07:00 Intake Total 500 ml 1770 ml 2124 ml Output Total 615 ml 850 ml 1570 ml Balance -115 ml 920 ml 554 ml LEANDRO COYNE MD November 01, 2019 13:49
[2019-11-01] MEDS ORDERED: ACETAMINOPHEN 325 MG TABLET. PO PRN (14:30)
--- NOTE | 2019-11-01 16:00 | NUR ---
wound care assessment done via pictures d/t awaiting COVID results. patient has an abdominal wound that patient is being treated at [facility], recommendations of Xeroform with a foam, change every other day, wound care will f/u.
[2019-11-01] MEDS: METOPROLOL TART IMMED RELEASE 50 MG TABLET. PO SCH (20:00)
[2019-11-01] MEDS: MULTIVITAMIN with MINERAL TABLET. PO SCH (20:00)
[2019-11-01] MEDS: ASCORBIC ACID 500 MG TABLET PO SCH (20:00)
[2019-11-01 20:54] LABS: MAGNESIUM 1.9 mg/dL (1.8-2.4); POTASSIUM 3.9 mmol/L (3.5-5.1)
[2019-11-01] MEDS: DAPTOmycin (GENERIC) IVPB 450 MG in IV NORMAL SALINE 50ML 50 ML IV SCH (22:39)
[2019-11-02] VITALS (12 sets, daily range): BP systolic 121–170; BP diastolic 56–87
[2019-11-02] MEDS: AMPICILLIN SODIUM 2 GM in IV NORMAL SALINE 100ML 100 ML IV SCH ×5 (03:47→21:17)
[2019-11-02] MEDS: DEXAMETHASONE SOD PHOS 4 MG/ML VIAL IV SCH ×4 (04:53→22:29)
[2019-11-02 05:33] LABS: CALCIUM 9.2 mg/dL (8.5-10.1); CREATININE 1.2 mg/dL (0.7-1.3); GFR 60.6; POTASSIUM 4.4 mmol/L (3.5-5.1)
--- NOTE | 2019-11-02 07:41 | NUR ---
IP: Pt is COVID negative.
--- NOTE | 2019-11-02 07:48 | PDOC ---
Infectious Disease Note Subjective Subjective Doing ok. Denies SPARKS or visual change. No F/C/S/N/V/SOA/rash/weakness hungry ROS ROS o/w neg Vital Sign Vital Signs Vital Signs Date Time Temp Pulse Resp B/P (MAP) Pulse Ox O2 Delivery O2 Flow Rate FiO2 11/02/19 03:00 98.7 71 20 127/63 (84) 93 Room Air 98.7 Physical Exam PHYSICAL EXAM CONSTITUTIONAL: He is lying in bed. He is cooperative. He is in no acute distress. HEENT: Pupils are equal. EOMI He has normal conjunctivae. Oral cavity, pharynx is clear, but he has questionable dentition. NECK: Supple, no JVD. LUNGS: Clear to auscultation. HEART: S1, S2. Previous Port-A-Cath site without complications. ABDOMEN: Soft and nontender. No guarding. Positive bowel sounds. Ostomy without signs of any complications. Abdominal wound without signs of gross infection or some scabbed areas. EXTREMITIES: No clubbing, cyanosis or gross edema. GENITOURINARY: He does have a Saravia in place. SKIN: Warm to touch without signs of rash. NEUROLOGIC: He is alert, answering questions appropriately. PSYCHIATRIC: Affect is appropriate. Labs Lab Laboratory Tests Test 11/01/19 20:30 11/02/19 04:40 Potassium Level 3.9 mmol/L (3.5-5.1) 4.4 mmol/L (3.5-5.1) Magnesium Level 1.9 mg/dL (1.8-2.4) Sodium Level 148 mmol/L (136-145) Chloride Level 113 mmol/L (98-107) Carbon Dioxide Level 26 mmol/L (21-32) Anion Gap 9 (6-14) Blood Urea Nitrogen 39 mg/dL (8-26) Creatinine 1.2 mg/dL (0.7-1.3) Estimated GFR (Cockcroft-Gault) 60.6 Glucose Level 171 mg/dL (70-99) Calcium Level 9.2 mg/dL (8.5-10.1) Creatine Kinase 75 U/L (39-308) Micro CT 10/29 IMPRESSION: Large area of edema in the superior right frontal lobe ; differential consideration of an underlying intra-axial mass versus edema from cerebritis. Consider MRI with and without IV contrast in further evaluation. Microbiology 10/30/19 Blood Culture - Final, Complete Objective Assessment Bacteremia 1/2 bottles 10/29 ? Strep possible Enterococcus - s/p Dapto times one COVID - neg Leukocytosis - on Dexamethasone Large area of edema in the superior right frontal lobe: differential consideration of an underlying intra-axial mass versus edema from cerebritis. Fever Colon cancer metastatic undergoing chemo at [facility]. 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 On RA and not SOA- No cough but add Zyvox with brain mass Add Ampicillin given brain mass F/u MRI head - CT chest/abd/pel F/u labs in am and cults Electrolytes per primary Wound care consult [place] MD November 02, 2019 07:48
[2019-11-02] MEDS: METOPROLOL TART IMMED RELEASE 50 MG TABLET. PO SCH ×2 (08:45→21:19)
[2019-11-02] MEDS: hydroCHLOROthiazide 25 MG TABLET PO SCH (08:46)
--- NOTE | 2019-11-02 09:35 | PDOC ---
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 Clarke at [facility] currently seems asymptomatic Hypernatremia secondary to severe dehydration improved Acute renal failure vasomotor etiology most likely improved with hydration Generalized weakness and deconditioning Bacteremia 1 of 2 bottles questionable strep will continue to follow results of culture Leukocytosis most likely secondary to demargination from steroids Acute febrile illness trying to rule out COVID-19 Essential hypertension Plan Follow results of COVID-19 Currently hemodynamically stable Seems to be awake oriented in person time place and situation Supportive measures Further recommendations based on the clinical course He has an MRI of the head and CT of the chest abdomen pelvis pending results of his COVID-19 testing as per protocol Reassess in the a.m. History of Present Illness History of Present Illness No acute events reported overnight, case discussed with nursing staff patient in no acute distress no complaints during my visit, quite talkative. NO new neurolgical deficits evident. Awaiting for MRI. he can be transferred to a telemetry floor when bed available. Vitals Vitals Vital Signs Date Time Temp Pulse Resp B/P (MAP) Pulse Ox O2 Delivery O2 Flow Rate FiO2 11/02/19 08:45 80 140/56 11/02/19 03:00 98.7 20 93 Room Air 98.7 Physical Exam Physical Exam CONSTITUTIONAL: He is lying in bed. He is cooperative. He is in no acute distress. HEENT: Pupils are equal. EOMI He has normal conjunctivae. Oral cavity, pharynx is clear, but he has questionable dentition. NECK: Supple, no JVD. LUNGS: Clear to auscultation. HEART: S1, S2. Previous Port-A-Cath site without complications. ABDOMEN: Soft and nontender. No guarding. Positive bowel sounds. Ostomy without signs of any complications. Abdominal wound without signs of gross infection or some scabbed areas. EXTREMITIES: No clubbing, cyanosis or gross edema. GENITOURINARY: He does have a Saravia in place. SKIN: Warm to touch without signs of rash. NEUROLOGIC: He is alert, answering questions appropriately. PSYCHIATRIC: Affect is appropriate. Lungs: Clear Labs LABS Laboratory Tests Test 11/01/19 20:30 11/02/19 04:40 Potassium Level 3.9 mmol/L (3.5-5.1) 4.4 mmol/L (3.5-5.1) Magnesium Level 1.9 mg/dL (1.8-2.4) Sodium Level 148 mmol/L (136-145) Chloride Level 113 mmol/L (98-107) Carbon Dioxide Level 26 mmol/L (21-32) Anion Gap 9 (6-14) Blood Urea Nitrogen 39 mg/dL (8-26) Creatinine 1.2 mg/dL (0.7-1.3) Estimated GFR (Cockcroft-Gault) 60.6 Glucose Level 171 mg/dL (70-99) Calcium Level 9.2 mg/dL (8.5-10.1) Creatine Kinase 75 U/L (39-308) Assessment and Plan Assessmemt and Plan Problems Medical Problems: (1) [id number] kidney injury Status: Acute (2) Cerebral mass Status: Acute (3) Elevated troponin I level Status: Acute (4) Hypokalemia Status: Acute (5) Left-sided weakness Status: Acute Comment Review of Relevant I have reviewed the following items renetta (where applicable) has been applied. Labs Laboratory Tests Test 11/01/19 05:10 11/01/19 05:20 11/01/19 20:30 11/02/19 04:40 White Blood Count 14.1 x10^3/uL (4.0-11.0) Red Blood Count 4.33 x10^6/uL (4.30-5.70) Hemoglobin 11.6 g/dL (13.0-17.5) Hematocrit 35.8 % (39.0-53.0) Mean Corpuscular Volume 83 fL (79-100) Mean Corpuscular Hemoglobin 27 pg (25-35) Mean Corpuscular Hemoglobin Concent 33 g/dL (31-37) Red Cell Distribution Width 14.9 % (11.5-14.5) Platelet Count 228 x10^3/uL (140-400) Neutrophils (%) (Auto) 92 % (31-73) Lymphocytes (%) (Auto) 5 % (24-48) Monocytes (%) (Auto) 3 % (0-9) Eosinophils (%) (Auto) 0 % (0-3) Basophils (%) (Auto) 0 % (0-3) Neutrophils # (Auto) 13.0 x10^3/uL (1.8-7.7) Lymphocytes # (Auto) 0.7 x10^3/uL (1.0-4.8) Monocytes # (Auto) 0.4 x10^3/uL (0.0-1.1) Eosinophils # (Auto) 0.0 x10^3/uL (0.0-0.7) Basophils # (Auto) 0.0 x10^3/uL (0.0-0.2) Sodium Level 150 mmol/L (136-145) 148 mmol/L (136-145) Potassium Level 2.9 mmol/L (3.5-5.1) 3.9 mmol/L (3.5-5.1) 4.4 mmol/L (3.5-5.1) Chloride Level 115 mmol/L (98-107) 113 mmol/L (98-107) Carbon Dioxide Level 23 mmol/L (21-32) 26 mmol/L (21-32) Anion Gap 12 (6-14) 9 (6-14) Blood Urea Nitrogen 43 mg/dL (8-26) 39 mg/dL (8-26) Creatinine 1.3 mg/dL (0.7-1.3) 1.2 mg/dL (0.7-1.3) Estimated GFR (Cockcroft-Gault) 55.2 60.6 BUN/Creatinine Ratio 33 (6-20) Glucose Level 199 mg/dL (70-99) 171 mg/dL (70-99) Calcium Level 9.4 mg/dL (8.5-10.1) 9.2 mg/dL (8.5-10.1) Total Bilirubin 0.3 mg/dL (0.2-1.0) Aspartate Amino Transf (AST/SGOT) 22 U/L (15-37) Alanine Aminotransferase (ALT/SGPT) 27 U/L (16-63) Alkaline Phosphatase 110 U/L (46-116) Total Protein 6.7 g/dL (6.4-8.2) Albumin 2.5 g/dL (3.4-5.0) Albumin/Globulin Ratio 0.6 (1.0-1.7) Magnesium Level 1.9 mg/dL (1.8-2.4) Creatine Kinase 75 U/L (39-308) Laboratory Tests Test 11/01/19 20:30 11/02/19 04:40 Potassium Level 3.9 mmol/L (3.5-5.1) 4.4 mmol/L (3.5-5.1) Magnesium Level 1.9 mg/dL (1.8-2.4) Sodium Level 148 mmol/L (136-145) Chloride Level 113 mmol/L (98-107) Carbon Dioxide Level 26 mmol/L (21-32) Anion Gap 9 (6-14) Blood Urea Nitrogen 39 mg/dL (8-26) Creatinine 1.2 mg/dL (0.7-1.3) Estimated GFR (Cockcroft-Gault) 60.6 Glucose Level 171 mg/dL (70-99) Calcium Level 9.2 mg/dL (8.5-10.1) Creatine Kinase 75 U/L (39-308) Microbiology 10/30/19 Blood Culture - Final, Complete Medications Current Medications Sodium Chloride 1,000 ml @ 2,000 mls/hr 1X ONCE IV Last administered on 10/30/19at 18:13; Start 10/30/19 at 17:30; Stop 10/30/19 at 17:59; Status DC Potassium Chloride/Water 100 ml @ 50 mls/hr 1X ONCE IV Last administered on 10/30/19at 18:20; Start 10/30/19 at 18:30; Stop 10/30/19 at 20:29; Status DC Fentanyl Citrate (Fentanyl 2ml Vial) 50 mcg 1X ONCE IVP Last administered on 10/30/19at 18:41; Start 10/30/19 at 18:30; Stop 10/30/19 at 18:39; Status DC Fentanyl Citrate (Fentanyl 2ml Vial) 100 mcg STK-MED ONCE .ROUTE ; Start 10/30/19 at 18:39; Stop 10/30/19 at 18:40; Status DC Sodium Chloride (Normal Saline Flush) 3 ml QSHIFT PRN IV AFTER MEDS AND BLOOD DRAWS; Start 10/30/19 at 19:15 Sodium Chloride 1,000 ml @ 999 mls/hr Q1H1M STAT IV Last administered on 10/30/19at 19:42; Start 10/30/19 at 19:06; Stop 10/30/19 at 20:06; Status DC Labetalol HCl (Normodyne Iv Push) 10 mg 1X ONCE IVP Last administered on 10/30/19at 19:55; Start 10/30/19 at 20:00; Stop 10/30/19 at 20:01; Status DC Dexamethasone Sodium Phosphate (Decadron) 10 mg 1X ONCE IV Last administered on 10/30/19at 20:12; Start 10/30/19 at 20:15; Stop 10/30/19 at 20:16; Status DC Ondansetron HCl (Zofran) 4 mg PRN Q8HRS PRN IV NAUSEA/VOMITING; Start 10/30/19 at 20:30; Stop 10/31/19 at 20:29; Status DC Morphine Sulfate (Morphine Sulfate) 2 mg PRN Q2HR PRN IV PAIN; Start 10/30/19 at 20:30; Stop 10/31/19 at 20:29; Status DC Sodium Chloride 1,000 ml @ 125 mls/hr Q8H IV Last administered on 10/30/19at 23:08; Start 10/30/19 at 20:19; Stop 10/31/19 at 10:06; Status DC Acetaminophen (Tylenol) 650 mg PRN Q4HRS PRN PO FEVER > 100.3'F; Start 10/30/19 at 20:30; Stop 10/31/19 at 20:29; Status DC Dexamethasone Sodium Phosphate (Decadron) 4 mg Q6H IV ; Start 10/30/19 at 20:30; Stop 10/30/19 at 22:55; Status DC Dexamethasone Sodium Phosphate (Decadron) 4 mg Q6H IV Last administered on 11/02/19at 04:53; Start 10/30/19 at 22:55 Nicardipine HCl 50 mg/Sodium Chloride 250 ml @ 25 mls/hr CONT PRN IV SEE I/O RECORD Last administered on 11/01/19at 07:39; Start 10/31/19 at 00:45 Clonidine HCl (Catapres Tts-2) 1 patch 1X ONCE TD Last administered on 10/31/19at 01:31; Start 10/31/19 at 01:15; Stop 10/31/19 at 01:16; Status DC Metoprolol Tartrate (Lopressor) 25 mg BID PO Last administered on 11/01/19at 08:53; Start 10/31/19 at 10:00; Stop 11/01/19 at 11:09; Status DC Sodium Chloride 1,000 ml @ 100 mls/hr Q10H IV Last administered on 10/31/19at 11:00; Start 10/31/19 at 11:00; Stop 10/31/19 at 13:01; Status DC Potassium Chloride/Sodium Chloride 1,000 ml @ 75 mls/hr [id number] IV Last administered on 11/01/19at 17:39; Start 10/31/19 at 13:00 Hydralazine HCl (Apresoline Inj) 10 mg PRN Q4HRS PRN IVP ELEVATED BP, SEE COMMENTS Last administered on 10/31/19at 20:21; Start 10/31/19 at 14:30 Daptomycin 440 mg/ Sodium Chloride 50 ml @ 100 mls/hr ONCE ONCE IV Last administered on 10/31/19at 21:47; Start 10/31/19 at 21:30; Stop 10/31/19 at 22:00; Status DC Potassium Chloride (Klor-Con) 40 meq 1X ONCE PO Last administered on 11/01/19at 08:53; Start 11/01/19 at 08:45; Stop 11/01/19 at 08:46; Status DC Potassium Chloride (Klor-Con) 40 meq 1X ONCE PO Last administered on 11/01/19at 11:49; Start 11/01/19 at 11:00; Stop 11/01/19 at 11:01; Status DC Potassium Chloride (Klor-Con) 40 meq 1X ONCE PO Last administered on 11/01/19at 13:58; Start 11/01/19 at 13:00; Stop 11/01/19 at 13:01; Status DC Daptomycin 450 mg/ Sodium Chloride 50 ml @ 100 mls/hr Q24H IV Last administered on 11/01/19at 22:39; Start 11/01/19 at 21:30 Ampicillin Sodium 2 gm/Sodium Chloride 100 ml @ 200 mls/hr Q4HRS IV Last administered on 11/02/19at 08:52; Start 11/01/19 at 12:00 Linezolid/Dextrose 300 ml @ 300 mls/hr Q12HR IV Last administered on 11/01/19at 21:00; Start 5/4/20 at 10:00 Amlodipine Besylate (Norvasc) 10 mg DAILY PO Last administered on 11/01/19 13:58; Start 11/01/19 at 12:00 Hydrochlorothiazide (Hydrodiuril) 25 mg DAILY PO Last administered on 11/02/19 08:46; Start 11/01/19 at 12:00 Metoprolol Tartrate (Lopressor) 100 mg BID PO Last administered on 11/02/19 0 8:45; Start 11/01/19 at 21:00 Losartan Potassium (Cozaar) 100 mg DAILY PO Last administered on 11/01/19 13:59; Start 11/01/19 at 12:00 Metoprolol Tartrate (Lopressor) 25 mg 1X ONCE PO Last administered on 11/01/19 11:50; Start 11/01/19 at 11:15; Stop 11/01/19 at 11:16; Status DC Metoprolol Tartrate (Lopressor) 50 mg 1X ONCE PO Last administered on 11/01/19at 11:48; Start 11/01/19 at 11:15; Stop 11/01/19 at 11:16; Status DC Acetaminophen (Tylenol) 650 mg PRN Q6HRS PRN PO MILD PAIN / TEMP > 100.3'F; Start 11/01/19 at 14:30 Multivitamins (Thera M Plus) 1 tab HS PO Last administered on 11/01/19at 20:00; Start 11/01/19 at 21:00 Ascorbic Acid (Vitamin C) 500 mg HS PO Last administered on 11/01/19at 20:00; Start 11/01/19 at 21:00 Active Scripts Active Reported Magnesium (Magnesium Oxide) 400 Mg Capsule 400 Mg PO BID Hydrochlorothiazide 25 Mg Tablet 25 Mg PO DAILY Klor-Con 10 (Potassium Chloride) 10 Meq Tablet.er 10 Mcg PO TID Losartan Potassium 100 Mg Tablet 30 Mg PO DAILY Amlodipine Besylate 10 Mg Tablet 10 Mg PO DAILY Metoprolol Tartrate 50 Mg Tablet 100 Mg PO BID Xarelto (Rivaroxaban) 20 Mg Tablet 20 Mg PO DAILY Vitals/I & O Vital Sign - Last 24 Hours 11/01/19 11/01/19 11/01/19 11/01/19 11:48 11:50 12:00 12:00 Pulse 90 90 94 107 Resp 18 B/P (MAP) 151/69 (96) 151/69 (96) Pulse Ox 96 O2 Delivery Room Air 11/01/19 11/01/19 11/01/19 11/01/19 12:11 13:00 13:58 13:59 Temp 98.2 98.2 Pulse 118 101 103 101 Resp 18 B/P (MAP) 126/59 (81) 139/55 (83) Pulse Ox 96 95 O2 Delivery Room Air 11/01/19 11/01/19 11/01/19 11/01/19 14:01 15:03 15:49 17:00 Temp 99.4 98.5 99.4 98.5 Pulse 104 91 69 Resp 18 18 18 B/P (MAP) 142/63 (89) 127/60 (82) 113/53 (73) Pulse Ox 96 95 96 O2 Delivery Room Air Room Air Room Air 11/01/19 11/01/19 11/01/19 11/01/19 18:00 19:30 20:00 23:00 Temp 98.7 98.7 Pulse 75 71 70 Resp 18 23 B/P (MAP) 102/62 (75) 99/47 99/67 (78) Pulse Ox 96 95 O2 Delivery Room Air Room Air Room Air 11/02/19 11/02/19 03:00 08:45 Temp 98.7 98.7 Pulse 71 80 Resp 20 B/P (MAP) 127/63 (84) 140/56 Pulse Ox 93 O2 Delivery Room Air Intake and Output 11/01/19 11/01/19 11/02/19 15:00 23:00 07:00 Intake Total 700 ml 1025 ml 2611 ml Output Total 400 ml 1350 ml 1800 ml Balance 300 ml -325 ml 811 ml LEANDRO COYNE MD November 02, 2019 09:35
--- NOTE | 2019-11-02 09:40 | PDOC ---
SUBJECTIVE ROS stable , no new concerns voiced by RN OBJECTIVE Vital Signs Vital Signs Date Time Temp Pulse Resp B/P (MAP) Pulse Ox O2 Delivery O2 Flow Rate FiO2 11/02/19 08:45 80 140/56 11/02/19 03:00 98.7 20 93 Room Air 98.7 I & 0 Intake and Output 11/02/19 06:59 Intake Total 4336 ml Output Total 3550 ml Balance 786 ml Intake Oral 1525 ml IV Total 2811 ml Output Urine Total 2700 ml Stool Total 850 ml PHYSICAL EXAM Physical Exam GENERAL: NAD HEENT: Oropharynx moist NECK: Supple. LUNGS: Diminished at bases , nonlabored. HEART: S1, S2 regular. ABDOMEN: Soft, nontender, ostomy +. EXTREMITIES: No gross edema or cyanosis. SKIN: No signs of rash. NEUROLOGIC: Alert and awake, Chronic mild tremors Saravia + DIAGNOSIS/ASSESSMENT Assessment & Plan Acute kidney injury:Suspect ATN 2/2 UA unremarkable, good uop, Improving renal function Supportive care, Strict I/O, IVF , Avoid nephrotoxins Hx of THAD in Jul 2019 - needing HD , improved Pt was off Dialysis when dc from [facility] in 2019 as well , baseline Cr has been normal Hypernatremia- Improving HypoKalemia- replace as indicated Fall at home - Large area of edema in the superior right frontal lobe: differential consideration of an underlying intra-axial mass versus edema from c erebritis. Most likely this is metastatic from his colon cancer per Neuro Hx of infected abdominal hernia mesh history of scrotal abscess Colon cancer undergoing chemotherapy at [facility]- Defer to Hem/onc history of urinary tract infections COVID-19 pending Chronic abdominal wound for which he is followed by Dr. Clarke at [facility] COMMENT/RELEVANT DATA Meds Current Medications Medications (Trade) Dose Ordered Sig/Joseph Start Time Stop Time Status Last Admin Dose Admin Acetaminophen (Tylenol) 650 mg PRN Q6HRS PRN 11/01/19 14:30 Amlodipine Besylate (Norvasc) 10 mg DAILY 11/01/19 12:00 11/01/19 13:58 10 MG Ampicillin Sodium 2 gm/Sodium Chloride 100 ml @ 200 mls/hr Q4HRS 11/01/19 12:00 11/02/19 08:52 200 MLS/HR Ascorbic Acid (Vitamin C) 500 mg HS 11/01/19 21:00 11/01/19 20:00 500 MG Clonidine HCl (Catapres Tts-2) 1 patch 1X ONCE 10/31/19 01:15 10/31/19 01:16 DC 10/31/19 01:31 1 PATCH Daptomycin 440 mg/ Sodium Chloride 50 ml @ 100 mls/hr ONCE ONCE 10/31/19 21:30 10/31/19 22:00 DC 10/31/19 21:47 100 MLS/HR Daptomycin 450 mg/ Sodium Chloride 50 ml @ 100 mls/hr Q24H 11/01/19 21:30 11/01/19 22:39 100 MLS/HR Dexamethasone Sodium Phosphate (Decadron) 4 mg Q6H 10/30/19 22:55 11/02/19 04:53 4 MG Fentanyl Citrate (Fentanyl 2ml Vial) 100 mcg STK-MED ONCE 10/30/19 18:39 10/30/19 18:40 DC Hydralazine HCl (Apresoline Inj) 10 mg PRN Q4HRS PRN 10/31/19 14:30 10/31/19 20:21 10 MG Hydrochlorothiazide (Hydrodiuril) 25 mg DAILY 11/01/19 12:00 11/02/19 08:46 25 MG Labetalol HCl (Normodyne Iv Push) 10 mg 1X ONCE 10/30/19 20:00 10/30/19 20:01 DC 10/30/19 19:55 10 MG Linezolid/Dextrose 300 ml @ 300 mls/hr Q12HR 11/01/19 10:00 11/01/19 21:00 300 MLS/HR Losartan Potassium (Cozaar) 100 mg DAILY 11/01/19 12:00 11/01/19 13:59 100 MG Metoprolol Tartrate (Lopressor) 50 mg 1X ONCE 11/01/19 11:15 11/01/19 11:16 DC 11/01/19 11:48 50 MG Morphine Sulfate (Morphine Sulfate) 2 mg PRN Q2HR PRN 10/30/19 20:30 10/31/19 20:29 DC Multivitamins (Thera M Plus) 1 tab HS 11/01/19 21:00 11/01/19 20:00 1 TAB Nicardipine HCl 50 mg/Sodium Chloride 250 ml @ 25 mls/hr CONT PRN 10/31/19 00:45 11/01/19 07:39 62.5 MLS/HR Ondansetron HCl (Zofran) 4 mg PRN Q8HRS PRN 10/30/19 20:30 10/31/19 20:29 DC Potassium Chloride/Sodium Chloride 1,000 ml @ 75 mls/hr [id number] 10/31/19 13:00 11/01/19 17:39 75 MLS/HR Potassium Chloride/Water 100 ml @ 50 mls/hr 1X ONCE 10/30/19 18:30 10/30/19 20:29 DC 10/30/19 18:20 50 MLS/HR Potassium Chloride (Klor-Con) 40 meq 1X ONCE 11/01/19 13:00 11/01/19 13:01 DC 11/01/19 13:58 40 MEQ Sodium Chloride 1,000 ml @ 100 mls/hr Q10H 10/31/19 11:00 10/31/19 13:01 DC 10/31/19 11:00 100 MLS/HR Sodium Chloride (Normal Saline Flush) 3 ml QSHIFT PRN 10/30/19 19:15 Lab Laboratory Tests Test 11/01/19 20:30 11/02/19 04:40 Potassium Level 3.9 mmol/L (3.5-5.1) 4.4 mmol/L (3.5-5.1) Magnesium Level 1.9 mg/dL (1.8-2.4) Sodium Level 148 mmol/L (136-145) Chloride Level 113 mmol/L (98-107) Carbon Dioxide Level 26 mmol/L (21-32) Anion Gap 9 (6-14) Blood Urea Nitrogen 39 mg/dL (8-26) Creatinine 1.2 mg/dL (0.7-1.3) Estimated GFR (Cockcroft-Gault) 60.6 Glucose Level 171 mg/dL (70-99) Calcium Level 9.2 mg/dL (8.5-10.1) Creatine Kinase 75 U/L (39-308) Results All relevant outside records, renal labs, imaging studies, telemetry/EKG's were reviewed. JE RIBEIRO MD November 02, 2019 09:40
[2019-11-02] MEDS: amLODIPine BESYLATE 10 MG TABLET PO SCH (10:15)
[2019-11-02] MEDS: LOSARTAN POTASSIUM 50 MG TABLET. PO SCH (11:14)
--- NOTE | 2019-11-02 11:23 | PDOC ---
PROGRESS NOTES Assessment Problems Medical Problems: (1) Anije-ux-hnnwfav kidney injury Status: Acute (2) Cerebral mass Status: Acute (3) Elevated troponin I level Status: Acute (4) Hypokalemia Status: Acute (5) Left-sided weakness Status: Acute Large area of edema in the superior right frontal lobe: differential consideration of an underlying intra-axial mass versus edema from cerebritis. Most likely this is metastatic from his colon cancer Osteoarthritis or rotator cuff problems in both shoulders COVID19 negative. Medical issues include acute kidney injury, elevated troponin, hypokalemia, colon cancer, metastatic, chronic abdominal wound Plan MRI of the brain CT scan of the body Dexamethasone Rehabilitation modalities Neurosurgery is consulted Consult oncology after scan results are back. Subjective No complaints Objective Vital Signs Date Time Temp Pulse Resp B/P (MAP) Pulse Ox O2 Delivery O2 Flow Rate FiO2 11/02/19 11:14 72 145/62 11/02/19 11:00 21 96 Room Air 11/02/19 08:00 97.9 97.9 Intake and Output 11/02/19 07:00 Intake Total 4336 ml Output Total 3550 ml Balance 786 ml Intake Oral 1525 ml IV Total 2811 ml Output Urine Total 2700 ml Stool Total 850 ml PHYSICAL EXAM Alert. Oriented to time, place and person. PERRL. EOMI. CN: no focal findings. Muscle tone: normal. Muscle strength: Limited range of motion of shoulders bilaterally, also left pronator drift, otherwise 5/5 strength with normal tone and bulk DTR: 2+ Plantar reflex: Flexor Gait: not examined in bed. Sensory exam: no abnormal findings. No cerebellar signs elicited. Review of Relevant I have reviewed the following items renetta (where applicable) has been applied. Labs Laboratory Tests Test 11/01/19 05:10 11/01/19 05:20 11/01/19 20:30 11/02/19 04:40 White Blood Count 14.1 x10^3/uL (4.0-11.0) Red Blood Count 4.33 x10^6/uL (4.30-5.70) Hemoglobin 11.6 g/dL (13.0-17.5) Hematocrit 35.8 % (39.0-53.0) Mean Corpuscular Volume 83 fL (79-100) Mean Corpuscular Hemoglobin 27 pg (25-35) Mean Corpuscular Hemoglobin Concent 33 g/dL (31-37) Red Cell Distribution Width 14.9 % (11.5-14.5) Platelet Count 228 x10^3/uL (140-400) Neutrophils (%) (Auto) 92 % (31-73) Lymphocytes (%) (Auto) 5 % (24-48) Monocytes (%) (Auto) 3 % (0-9) Eosinophils (%) (Auto) 0 % (0-3) Basophils (%) (Auto) 0 % (0-3) Neutrophils # (Auto) 13.0 x10^3/uL (1.8-7.7) Lymphocytes # (Auto) 0.7 x10^3/uL (1.0-4.8) Monocytes # (Auto) 0.4 x10^3/uL (0.0-1.1) Eosinophils # (Auto) 0.0 x10^3/uL (0.0-0.7) Basophils # (Auto) 0.0 x10^3/uL (0.0-0.2) Sodium Level 150 mmol/L (136-145) 148 mmol/L (136-145) Potassium Level 2.9 mmol/L (3.5-5.1) 3.9 mmol/L (3.5-5.1) 4.4 mmol/L (3.5-5.1) Chloride Level 115 mmol/L (98-107) 113 mmol/L (98-107) Carbon Dioxide Level 23 mmol/L (21-32) 26 mmol/L (21-32) Anion Gap 12 (6-14) 9 (6-14) Blood Urea Nitrogen 43 mg/dL (8-26) 39 mg/dL (8-26) Creatinine 1.3 mg/dL (0.7-1.3) 1.2 mg/dL (0.7-1.3) Estimated GFR (Cockcroft-Gault) 55.2 60.6 BUN/Creatinine Ratio 33 (6-20) Glucose Level 199 mg/dL (70-99) 171 mg/dL (70-99) Calcium Level 9.4 mg/dL (8.5-10.1) 9.2 mg/dL (8.5-10.1) Total Bilirubin 0.3 mg/dL (0.2-1.0) Aspartate Amino Transf (AST/SGOT) 22 U/L (15-37) Alanine Aminotransferase (ALT/SGPT) 27 U/L (16-63) Alkaline Phosphatase 110 U/L (46-116) Total Protein 6.7 g/dL (6.4-8.2) Albumin 2.5 g/dL (3.4-5.0) Albumin/Globulin Ratio 0.6 (1.0-1.7) Magnesium Level 1.9 mg/dL (1.8-2.4) Creatine Kinase 75 U/L (39-308) Laboratory Tests Test 11/01/19 20:30 11/02/19 04:40 Potassium Level 3.9 mmol/L (3.5-5.1) 4.4 mmol/L (3.5-5.1) Magnesium Level 1.9 mg/dL (1.8-2.4) Sodium Level 148 mmol/L (136-145) Chloride Level 113 mmol/L (98-107) Carbon Dioxide Level 26 mmol/L (21-32) Anion Gap 9 (6-14) Blood Urea Nitrogen 39 mg/dL (8-26) Creatinine 1.2 mg/dL (0.7-1.3) Estimated GFR (Cockcroft-Gault) 60.6 Glucose Level 171 mg/dL (70-99) Calcium Level 9.2 mg/dL (8.5-10.1) Creatine Kinase 75 U/L (39-308) Microbiology 10/30/19 Blood Culture - Final, Complete Medications Current Medications Sodium Chloride 1,000 ml @ 2,000 mls/hr 1X ONCE IV Last administered on 10/30/19at 18:13; Start 10/30/19 at 17:30; Stop 10/30/19 at 17:59; Status DC Potassium Chloride/Water 100 ml @ 50 mls/hr 1X ONCE IV Last administered on 10/30/19at 18:20; Start 10/30/19 at 18:30; Stop 10/30/19 at 20:29; Status DC Fentanyl Citrate (Fentanyl 2ml Vial) 50 mcg 1X ONCE IVP Last administered on 10/30/19at 18:41; Start 10/30/19 at 18:30; Stop 10/30/19 at 18:39; Status DC Fentanyl Citrate (Fentanyl 2ml Vial) 100 mcg STK-MED ONCE .ROUTE ; Start 10/30/19 at 18:39; Stop 10/30/19 at 18:40; Status DC Sodium Chloride (Normal Saline Flush) 3 ml QSHIFT PRN IV AFTER MEDS AND BLOOD DRAWS; Start 10/30/19 at 19:15 Sodium Chloride 1,000 ml @ 999 mls/hr Q1H1M STAT IV Last administered on 10/30/19at 19:42; Start 10/30/19 at 19:06; Stop 10/30/19 at 20:06; Status DC Labetalol HCl (Normodyne Iv Push) 10 mg 1X ONCE IVP Last administered on at 19:55; Start 10/30/19 at 20:00; Stop 10/30/19 at 20:01; Status DC Dexamethasone Sodium Phosphate (Decadron) 10 mg 1X ONCE IV Last administered on 10/30/19at 20:12; Start 10/30/19 at 20:15; Stop 10/30/19 at 20:16; Status DC Ondansetron HCl (Zofran) 4 mg PRN Q8HRS PRN IV NAUSEA/VOMITING; Start 10/30/19 at 20:30; Stop 10/31/19 at 20:29; Status DC Morphine Sulfate (Morphine Sulfate) 2 mg PRN Q2HR PRN IV PAIN; Start 10/30/19 at 20:30; Stop 10/31/19 at 20:29; Status DC Sodium Chloride 1,000 ml @ 125 mls/hr Q8H IV Last administered on 10/30/19at 23:08; Start 10/30/19 at 20:19; Stop 10/31/19 at 10:06; Status DC Acetaminophen (Tylenol) 650 mg PRN Q4HRS PRN PO FEVER > 100.3'F; Start 10/30/19 at 20:30; Stop 10/31/19 at 20:29; Status DC Dexamethasone Sodium Phosphate (Decadron) 4 mg Q6H IV ; Start 10/30/19 at 20:30; Stop 10/30/19 at 22:55; Status DC Dexamethasone Sodium Phosphate (Decadron) 4 mg Q6H IV Last administered on 11/02/19at 10:39; Start 10/30/19 at 22:55 Nicardipine HCl 50 mg/Sodium Chloride 250 ml @ 25 mls/hr CONT PRN IV SEE I/O RECORD Last administered on 11/01/19at 07:39; Start 10/31/19 at 00:45 Clonidine HCl (Catapres Tts-2) 1 patch 1X ONCE TD Last administered on 10/31/19at 01:31; Start 10/31/19 at 01:15; Stop 10/31/19 at 01:16; Status DC Metoprolol Tartrate (Lopressor) 25 mg BID PO Last administered on 11/01/19at 08:53; Start 10/31/19 at 10:00; Stop 11/01/19 at 11:09; Status DC Sodium Chloride 1,000 ml @ 100 mls/hr Q10H IV Last administered on 10/31/19at 11:00; Start 10/31/19 at 11:00; Stop 10/31/19 at 13:01; Status DC Potassium Chloride/Sodium Chloride 1,000 ml @ 75 mls/hr [id number] IV Last administered on 11/01/19at 17:39; Start 10/31/19 at 13:00 Hydralazine HCl (Apresoline Inj) 10 mg PRN Q4HRS PRN IVP ELEVATED BP, SEE COMMENTS Last administered on 10/31/19at 20:21; Start 10/31/19 at 14:30 Daptomycin 440 mg/ Sodium Chloride 50 ml @ 100 mls/hr ONCE ONCE IV Last administered on 10/31/19at 21:47; Start 10/31/19 at 21:30; Stop 10/31/19 at 22:00; Status DC Potassium Chloride (Klor-Con) 40 meq 1X ONCE PO Last administered on 11/01/19at 08:53; Start 11/01/19 at 08:45; Stop 11/01/19 at 08:46; Status DC Potassium Chloride (Klor-Con) 40 meq 1X ONCE PO Last administered on 11/01/19at 11:49; Start 11/01/19 at 11:00; Stop 11/01/19 at 11:01; Status DC Potassium Chloride (Klor-Con) 40 meq 1X ONCE PO Last administered on 11/01/19at 13:58; Start 11/01/19 at 13:00; Stop 11/01/19 at 13:01; Status DC Daptomycin 450 mg/ Sodium Chloride 50 ml @ 100 mls/hr Q24H IV Last administered on 11/01/19 22:39; Start 11/01/19 at 21:30 Ampicillin Sodium 2 gm/Sodium Chloride 100 ml @ 200 mls/hr Q4HRS IV Last administered on 11/02/19 08:52; Start 11/01/19 at 12:00 Linezolid/Dextrose 300 ml @ 300 mls/hr Q12HR IV Last administered on 11/02/19 10:11; Start 11/01/19 at 10:00 Amlodipine Besylate (Norvasc) 10 mg DAILY PO Last administered on 11/02/19 10:15; Start 11/01/19 at 12:00 Hydrochlorothiazide (Hydrodiuril) 25 mg DAILY PO Last administered on 11/02/19 08:46; Start 11/01/19 at 12:00 Metoprolol Tartrate (Lopressor) 100 mg BID PO Last administered on 11/02/19 08:45; Start 11/01/19 at 21:00 Losartan Potassium (Cozaar) 100 mg DAILY PO Last administered on 11/02/19 11:14; Start 11/01/19 at 12:00 Metoprolol Tartrate (Lopressor) 25 mg 1X ONCE PO Last administered on 11/01/19 11:50; Start 11/01/19 at 11:15; Stop 11/01/19 at 11:16; Status DC Metoprolol Tartrate (Lopressor) 50 mg 1X ONCE PO Last administered on 11/01/19 11:48; Start 11/01/19 at 11:15; Stop 11/01/19 at 11:16; Status DC Acetaminophen (Tylenol) 650 mg PRN Q6HRS PRN PO MILD PAIN / TEMP > 100.3'F; Start 11/01/19 at 14:30 Multivitamins (Thera M Plus) 1 tab HS PO Last administered on 11/01/19 20:00; Start 11/01/19 at 21:00 Ascorbic Acid (Vitamin C) 500 mg HS PO Last administered on 11/01/19 20:00; Start 11/01/19 at 21:00 Active Scripts Active Reported Magnesium (Magnesium Oxide) 400 Mg Capsule 400 Mg PO BID Hydrochlorothiazide 25 Mg Tablet 25 Mg PO DAILY Klor-Con 10 (Potassium Chloride) 10 Meq Tablet.er 10 Mcg PO TID Losartan Potassium 100 Mg Tablet 30 Mg PO DAILY Amlodipine Besylate 10 Mg Tablet 10 Mg PO DAILY Metoprolol Tartrate 50 Mg Tablet 100 Mg PO BID Xarelto (Rivaroxaban) 20 Mg Tablet 20 Mg PO DAILY Vitals/I & O Vital Sign - Last 24 Hours 11/01/19 11/01/19 11/01/19 11/01/19 11:48 11:50 12:00 12:00 Pulse 90 90 94 107 Resp 18 B/P (MAP) 151/69 (96) 151/69 (96) Pulse Ox 96 O2 Delivery Room Air 11/01/19 11/01/19 11/01/19 11/01/19 12:11 13:00 13:58 13:59 Temp 98.2 98.2 Pulse 118 101 103 101 Resp 18 B/P (MAP) 126/59 (81) 139/55 (83) Pulse Ox 96 95 O2 Delivery Room Air 11/01/19 11/01/19 11/01/19 11/01/19 14:01 15:03 15:49 17:00 Temp 99.4 98.5 99.4 98.5 Pulse 104 91 69 Resp 18 18 18 B/P (MAP) 142/63 (89) 127/60 (82) 113/53 (73) Pulse Ox 96 95 96 O2 Delivery Room Air Room Air Room Air 11/01/19 11/01/19 11/01/19 11/01/19 18:00 19:30 20:00 23:00 Temp 98.7 98.7 Pulse 75 71 70 Resp 18 23 B/P (MAP) 102/62 (75) 99/47 99/67 (78) Pulse Ox 96 95 O2 Delivery Room Air Room Air Room Air 11/02/19 11/02/19 11/02/19 11/02/19 03:00 07:00 08:00 08:00 Temp 98.7 97.9 98.7 97.9 Pulse 71 76 68 Resp 20 24 16 B/P (MAP) 127/63 (84) 121/74 (90) 140/56 (84) Pulse Ox 93 94 93 O2 Delivery Room Air Room Air Room Air Room Air 11/02/19 11/02/19 11/02/19 11/02/19 08:45 09:00 10:00 10:15 Pulse 80 84 74 73 Resp 22 21 B/P (MAP) 140/56 153/87 (109) 151/64 (93) 151/64 Pulse Ox 94 97 O2 Delivery Room Air Room Air 11/02/19 11/02/19 11:00 11:14 Pulse 68 72 Resp 21 B/P (MAP) 145/62 (89) 145/62 Pulse Ox 96 O2 Delivery Room Air Intake and Output 11/01/19 11/01/19 11/02/19 15:00 23:00 07:00 Intake Total 700 ml 1025 ml 2611 ml Output Total 400 ml 1350 ml 1800 ml Balance 300 ml -325 ml 811 ml MITCH WISDOM MD November 02, 2019 11:23
--- NOTE | 2019-11-02 11:34 | NUR ---
Bedside Swallow Evaluation completed. Please refer to full report in intervention section for additional information. Impressions: Min-Mild oral dysphagia w/ mild L labial weakness, occasional spillage of boluses from mouth, and min-mild diffuse oral residue after trials of solids at times. Swallow initiation and hyolaryngeal excursion appear timely and WFL via palp. No s/s aspiration were noted during evaluation and pt appears at low risk of aspiration with regular diet and thin liquids. Recommendations: Continue regular diet and thin liquids w/ general swallow precautions. ST follow up for dysphagia per POC.
--- NOTE | 2019-11-02 13:49 | PDOC ---
COLLEEN GOMEZ DOOR TO DOOR SELLING DISTRIBUTOR 11/02/19 1349: CARDIO Progress Notes Date and Time Date of Service 11/02/19 Time of Evaluation 1015 Subjective Subjective: No Chest Pain, No shortness of breath, No Palpitations, Other (talkative ) Vitals Vitals Vital Signs Date Time Temp Pulse Resp B/P (MAP) Pulse Ox O2 Delivery O2 Flow Rate FiO2 11/02/19 13:00 78 20 170/74 (106) 93 Room Air 11/02/19 11:00 98.1 98.1 Weight Weight [ ] Input and Output Intake and Output Intake and Output 11/02/19 07:00 Intake Total 4336 ml Output Total 3550 ml Balance 786 ml Intake Oral 1525 ml IV Total 2811 ml Output Urine Total 2700 ml Stool Total 850 ml Laboratory Labs Laboratory Tests Test 11/01/19 20:30 11/02/19 04:40 Potassium Level 3.9 mmol/L (3.5-5.1) 4.4 mmol/L (3.5-5.1) Magnesium Level 1.9 mg/dL (1.8-2.4) Sodium Level 148 mmol/L (136-145) Chloride Level 113 mmol/L (98-107) Carbon Dioxide Level 26 mmol/L (21-32) Anion Gap 9 (6-14) Blood Urea Nitrogen 39 mg/dL (8-26) Creatinine 1.2 mg/dL (0.7-1.3) Estimated GFR (Cockcroft-Gault) 60.6 Glucose Level 171 mg/dL (70-99) Calcium Level 9.2 mg/dL (8.5-10.1) Creatine Kinase 75 U/L (39-308) Microbiology Micro Microbiology 10/30/19 Blood Culture - Final, Complete Physical Exam HEENT: Neck Supple W Full Motion Chest: Symmetric LUNGS: Clear to Auscultation Heart: S1S2, RRR Abdomen: Soft N/T Extremities: No Edema Neurology: alert, follow commands Assessment Assessment 1. Fall, generalized weakness. Reportedly down for > 24 hrs 2. THAD; improved 3. Hypernatremia, hypokalemia; resolved 4. Stage 4 Colon CA with mets to lungs and liver treated with chemotherapy. Follows at . 5. Superior right frontal lobe edema. Concerns for brain metastasis. MRI for further evaluation. 6. Hypertensive urgency; better controlled. Off Cardene 7. Mild trop elevation; peak 0.166. most probable type II, demand ischemia; multiple culprits noted above. Recent echo with preserved LV systolic function. CP free. 8. H/o DVT on Xarelto 9. Low-grade fevers, bacteremia 10. 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 Arrhythmia; had one episode of 12-beat NSVT on tele. Otherwise, maintaining SR. Recommendations Mg level Continue current antiHTN therapy Follow trends; add hydralazine if BP remains elevated. Follow blood cultures. Antibiotic therapy as per ID Supportive care from a CV standpoint. Consider conservative measures CV de jesus, given advanced metastatic disease. SCARLETT LATIF MD 11/02/19 1423: CARDIO Progress Notes Assessment Assessment Agree with EMR SPECIALIST's assessment and plan. Blood pressure better controlled. Patient off Cardene. Slight troponin elevation probably demand ischemia. Agree with conservative measures secondary to his advanced metastatic cancer Telemetry showed one episode of NSVT. Magnesium level normal. We will continue to monitor. COLLEEN GOMEZ APRN November 02, 2019 13:49 SCARLETT LATIF MD November 02, 2019 14:23
[2019-11-02 14:15] LABS: CHOLESTEROL/HDL RATIO 2.5
--- NOTE | 2019-11-02 14:50 | NUR ---
Patient transferred to room 654 at 1400 via wheelchair. TANNER Ornelas notified & came in room to see patient.
--- NOTE | 2019-11-02 15:30 | NUR ---
Wound/Ostomy Care Wound Type/Assessment: Pt has mid abdominal wounds with exposed mesh, draining purulent serosanguinous drainage, dusky red periwound shiny and reddened. Pt sees Dr. Clarke, wound care doctor at [facility] and he occasionally trims the mesh as needed. Wounds redressed with Aquacel AG and covered with a foam dressing, recommendation of changing every 3 days. No other wounds noted on full skin inspection. Treatment Recommendations/Plan: Antimicrobial, absorbant dressings, continue follow up with Dr. Clarke as directed. Education provided: POC discussed with TANNER Dukes. Pt's only belonging at bedside was his wallet, asked pt if he would like to have Security lock it up, pt stated that would be a good idea, Roseline stated she would call. Offloading surface/device: Wedge for repositioning, turned pt onto left side, heels floated. Recommended Referrals/Tests: N/A Discharge Recommendations for dressings: Antimicrobial, absorbant dressings, will defer to Dr. Clarke.
--- NOTE | 2019-11-02 15:31 | NUR ---
SS following up with discharge planning. Pt transferred to room 654. Pt is COVID negative. PT/OT ordered. OT recommending correction unit. SS met with pt to discuss discharge planning and correction unit. Pt agreeable to correction unit and requested referral be phoned and faxed to [facility] as first choice and [facility] as second choice. SS currently awaiting PT evaluation and will proceed accordingly with referral. Pt's RN notified.
[2019-11-02] MEDS ORDERED: GADOTERATE 7.5 MMOL/15ML VIAL. IVP ONE (16:15)
--- NOTE | 2019-11-02 17:05 | RAD ---
BRAIN WO/W CONTRAST Date: 11/02/2019 8:00 AM Indication: Brain mass on CT. History of colon cancer. Comparison: CT 10/30/2019. Technique: Multiplanar multisequence MRI of the brain was performed with and without intravenous contrast using the standard protocol. 16 cc Dotarem contrast was administered intravenously during the exam. Findings: Right frontal lobe necrotic enhancing mass measuring 2.3 x 2.2 cm. Additional right high frontal lobe parafalcine mass measuring 1.5 x 1.2 cm. Extensive surrounding edema with right hemispheric sulcal effacement, partial effacement of the right lateral ventricle, and 2 mm right left midline shift. Patent basilar cisterns. No acute infarct. No acute or chronic hemorrhage. Ventricles are not dilated. Mild scattered FLAIR hyperintensities in the subcortical and periventricular deep white matter, a nonspecific finding, most commonly seen with chronic small vessel ischemic disease. Small area of left frontoparietal encephalomalacia. The scalp and calvarium are normal. The pituitary and sella are normal. No Chiari malformation. The visualized upper cervical spine is normal. The visualized orbits and globes are normal. The visualized paranasal sinuses are clear. Trace right mastoid fluid. Normal flow voids within the vertebral, basilar, and internal carotid arteries indicating patency. IMPRESSION: Two enhancing right frontal lobe lesions concerning for metastatic disease, given history of malignancy. Extensive right hemispheric edema with 2 mm right to left midline shift. Electronically signed by: Al Gross MD (11/02/2019 5:02 PM) [id number]
--- NOTE | 2019-11-02 17:07 | RAD ---
EXAM: CT Chest, Abdomen and Pelvis without IV contrast CLINICAL HISTORY: History of colon cancer, brain likely ascites, restaging COMPARISON: 09/22/2018, 01/31/2015 TECHNIQUE: Helical CT of the chest, abdomen and pelvis was performed without intravenous contrast. Axial, coronal and sagittal reformatted images were generated. ---PQRS compliance statement - One or more of the following individualized dose reduction techniques were utilized for this study: 1. Automated exposure control 2. Adjustment of the mA and/or kV according to patient size 3. Use of iterative reconstruction technique--- FINDINGS: Lack of intravenous contrast limits evaluation of solid organs, vasculature, and lymph nodes. Chest: Heart is mildly enlarged. Small pericardial effusion. Coronary artery calcifications are seen. No axillary lymphadenopathy. A precarinal lymph node measures 2.7 x 2.2 cm. Bilateral hilar lymphadenopathy is also suspected although cannot be accurately delineated given the noncontrast examination. A left supraclavicular lymph node measures the 2.4 x 1.7 cm. Enlarged prevascular lymph nodes are also seen. Trace right pleural effusion. Emphysematous changes are seen bilaterally. A 2.5 x 2.3 cm right upper lobe mass (series 2 image 21) is seen. Several small nodular satellite nodules are seen. In addition a 7 mm right upper lobe lung nodule (series 2 image 19) is seen. Several additional smaller nodules are seen bilaterally. No focal consolidation/atelectasis or lung nodule measuring 1.1 cm is seen in the left lower lobe at the left posterior costophrenic angle (series 2 image 53). Abdomen and Pelvis: A 2.2 cm right hepatic lobe hypodense lesion measures greater than simple fluid on today's examination. Additional hypodense lesions are seen in the inferior right hepatic lobe. Small gallstone is seen at the gallbladder neck. Gallbladder is otherwise unremarkable. No biliary ductal dilatation. Pancreas is grossly unremarkable. Spleen is normal in appearance. Right adrenal gland is unremarkable. A left adrenal nodule measures 2.4 x 2.1 cm, previously 1.4 cm. Contrast within the renal collecting systems may be related to previously administered contrast for MRI brain. No focal renal lesion. No hydronephrosis. No hydroureter. Saravia catheter and foci of gas are seen within the decompressed bladder. Prominent and borderline enlarged retroperitoneal lymph nodes are seen. A lymph node just cephalad to the celiac artery measures 2 x 1.2 cm, now seen on prior examination. Enlarged pelvic lymphadenopathy. For example a left iliac chain lymph node measures 1.8 x 1.4 cm. Several enlarged left inguinal lymph nodes are also seen. A 1.9 x 1.7 cm lymph node is seen between the left and right common iliac arteries, previously 4 mm short axis. Several additional enlarged lymph nodes are seen within the abdomen and pelvis. No small or large bowel dilatation. Changes of right lower quadrant ostomy are seen. Changes of Sanjay pouch identified. Fat-containing left inguinal hernia is seen. Fat-containing left inguinal hernia. No abdominal or pelvic ascites. Bones: Numerous bilateral lytic lesions are seen. For example a 3.3 x 1.9 cm lytic lesion is seen in the right iliac wing, new. Lytic lesion within the left L3 transverse process is seen. Lytic lesion within the left coracoid process and right glenoid. IMPRESSION: Findings are consistent with progression of metastatic disease with new/enlarging thoracic, abdominal and pelvic lymphadenopathy, numerous new lytic lesions as well as parenchymal lung lesions and enlarging left adrenal lesion.. In addition a 2.5 cm nodular mass in the right upper lobe may represent a separate primary malignancy or focus of metastasis. Hypodense lesions within the liver were seen on prior examination although on today's examination measuring greater than simple fluid. Underlying metastatic disease is also suspected however can be confirmed by MRI. No bowel obstruction. Changes of right lower quadrant ostomy. Electronically signed by: Moisés Butterfield MD (11/02/2019 5:04 PM) [id number]
--- NOTE | 2019-11-02 17:30 | PDOC ---
Provider Note Provider Note patient seen and examined consulted for brain mass denies headache exam with minimal weakness left upper extremity otherwise intact MRI with Two enhancing right frontal lobe lesions one is in the perisylvian region and the other is a lesion adjacent to the midline with minimal right to left shift CT abdomen/ pelvis is pending I am concerned that he may not tolerate surgery due to his other medical problems will await CT abd/pelvis steroids will follow BAILEE ZELAYA MD November 02, 2019 17:29
[2019-11-02] MEDS: ASCORBIC ACID 500 MG TABLET PO SCH (21:19)
[2019-11-02] MEDS: MULTIVITAMIN with MINERAL TABLET. PO SCH (21:19)
[2019-11-02] MEDS: DAPTOmycin (GENERIC) IVPB 450 MG in IV NORMAL SALINE 50ML 50 ML IV SCH (23:20)
[2019-11-03 03:00] VITALS: BP 153/55
[2019-11-03] MEDS: AMPICILLIN SODIUM 2 GM in IV NORMAL SALINE 100ML 100 ML IV SCH ×2 (04:00→04:20)
[2019-11-03] MEDS: DEXAMETHASONE SOD PHOS 4 MG/ML VIAL IV SCH ×4 (04:25→23:32)
[2019-11-03 05:20] LABS: TOTAL PROTEIN 5.6 g/dL (6.4-8.2)
[2019-11-03 05:21] LABS: ALBUMIN 2.1 g/dL (3.4-5.0); ALBUMIN/GLOBULIN RATIO 0.6 (1.0-1.7); CALCIUM 8.5 mg/dL (8.5-10.1); CREATININE 1.3 mg/dL (0.7-1.3); GFR 55.2; POTASSIUM 3.5 mmol/L (3.5-5.1); TOTAL BILIRUBIN 0.2 mg/dL (0.2-1.0)
[2019-11-03 07:15] VITALS: BP 113/80
--- NOTE | 2019-11-03 09:33 | PDOC ---
Infectious Disease Note Subjective Subjective Doing ok. Denies SPARKS or visual change. No F/C/S/N/V/SOA/rash/weakness hungry Vital Sign Vital Signs Vital Signs Date Time Temp Pulse Resp B/P (MAP) Pulse Ox O2 Delivery O2 Flow Rate FiO2 11/03/19 07:15 97.8 83 18 113/80 (91) 93 Room Air 97.8 Physical Exam PHYSICAL EXAM CONSTITUTIONAL: He is siitting in chair. He is cooperative. He is in no acute distress. HEENT: Pupils are equal. EOMI He has normal conjunctivae. Oral cavity, pharynx is clear, but he has questionable dentition. NECK: Supple, no JVD. LUNGS: Clear to auscultation. HEART: S1, S2. Previous Port-A-Cath site without complications. ABDOMEN: Soft and nontender. No guarding. Positive bowel sounds. Ostomy without signs of any complications. Abdominal wound without signs of gross infection or some scabbed areas. EXTREMITIES: No clubbing, cyanosis or gross edema. GENITOURINARY: He does have a Saravia in place. SKIN: Warm to touch without signs of rash. NEUROLOGIC: He is alert, answering questions appropriately. PSYCHIATRIC: Affect is appropriate. Labs Lab Laboratory Tests Test 11/03/19 03:00 Sodium Level 146 mmol/L (136-145) Potassium Level 3.5 mmol/L (3.5-5.1) Chloride Level 111 mmol/L (98-107) Carbon Dioxide Level 27 mmol/L (21-32) Anion Gap 8 (6-14) Blood Urea Nitrogen 37 mg/dL (8-26) Creatinine 1.3 mg/dL (0.7-1.3) Estimated GFR (Cockcroft-Gault) 55.2 BUN/Creatinine Ratio 28 (6-20) Glucose Level 269 mg/dL (70-99) Calcium Level 8.5 mg/dL (8.5-10.1) Total Bilirubin 0.2 mg/dL (0.2-1.0) Aspartate Amino Transf (AST/SGOT) 37 U/L (15-37) Alanine Aminotransferase (ALT/SGPT) 51 U/L (16-63) Alkaline Phosphatase 152 U/L (46-116) Total Protein 5.6 g/dL (6.4-8.2) Albumin 2.1 g/dL (3.4-5.0) Albumin/Globulin Ratio 0.6 (1.0-1.7) Micro MRI head IMPRESSION: Two enhancing right frontal lobe lesions concerning for metastatic disease, given history of malignancy. Extensive right hemispheric edema with 2 mm right to left midline shift. CT Chest/abd/pel IMPRESSION: Findings are consistent with progression of metastatic disease with new/enlarging thoracic, abdominal and pelvic lymphadenopathy, numerous new lytic lesions as well as parenchymal lung lesions and enlarging left adrenal lesion.. In addition a 2.5 cm nodular mass in the right upper lobe may represent a separate primary malignancy or focus of metastasis. Hypodense lesions within the liver were seen on prior examination although on today's examination measuring greater than simple fluid. Underlying metastatic disease is also suspected however can be confirmed by MRI. No bowel obstruction. Changes of right lower quadrant ostomy. CT 10/29 IMPRESSION: Large area of edema in the superior right frontal lobe ; differential consideration of an underlying intra-axial mass versus edema from cerebritis. Consider MRI with and without IV contrast in further evaluation. Microbiology 10/30/19 Blood Culture - Final, Complete Objective Assessment Bacteremia / bottles 10/29 ? Strep possible Enterococcus - s/p Dapto times one 10/30 now small GPR also GNR in urine COVID - neg Leukocytosis - on Dexamethasone Large area of edema in the superior right frontal lobe: differential consideration of an underlying intra-axial mass versus edema from cerebritis. Fever Colon cancer metastatic undergoing chemo at [facility]. 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 On RA and not SOA- No cough but add Zyvox with brain mass D/c Ampicillin given GNR in urine and GPR in blood now - brain mass begin zosyn F/u labs in am and cults Electrolytes per primary Wound care consult [facility] MD November 03, 2019 09:33
--- NOTE | 2019-11-03 09:33 | PDOC ---
SUBJECTIVE ROS No complaints, transferred out of ICU OBJECTIVE Vital Signs Vital Signs Date Time Temp Pulse Resp B/P (MAP) Pulse Ox O2 Delivery O2 Flow Rate FiO2 11/03/19 07:15 97.8 83 18 113/80 (91) 93 Room Air 97.8 I & 0 Intake and Output 11/03/19 07:00 Intake Total 480 ml Output Total 4100 ml Balance -3620 ml Intake Oral 480 ml Output Urine Total 4100 ml # Bowel Movements 2 PHYSICAL EXAM Physical Exam GENERAL: NAD HEENT: Oropharynx moist NECK: Supple. LUNGS: Diminished at bases , nonlabored. HEART: S1, S2 regular. ABDOMEN: Soft, nontender, ostomy +. EXTREMITIES: No gross edema or cyanosis. SKIN: No signs of rash. NEUROLOGIC: Alert and awake, Chronic mild tremors Saravia + DIAGNOSIS/ASSESSMENT Assessment & Plan Acute kidney injury:Suspect ATN 2/2, Improved , stable UA unremarkable, good uop, ? Polyuric Supportive care, Avoid nephrotoxins Hx of THAD in Jul 2019 - needing HD , improved Pt was off Dialysis when dc from [facility] in 2018 as well , baseline Cr has been normal Hypernatremia- corrected for glucose >146 , if not NPO encourage water intake HypoKalemia- replace as indicated Widely metastatic colon cancer undergoing chemotherapy at [facility] Brain metastasis: - per neurosurg he is on dexamethasone for the edema, Onc recommends radiation possible palliative radiotherapy, Hx of infected abdominal hernia mesh history of scrotal abscess history of urinary tract infections COVID-19 negative Chronic abdominal wound for which he is followed by Dr. Clarke at [facility] COMMENT/RELEVANT DATA Meds Current Medications Medications (Trade) Dose Ordered Sig/Joseph Start Time Stop Time Status Last Admin Dose Admin Acetaminophen (Tylenol) 650 mg PRN Q6HRS PRN 11/01/19 14:30 Amlodipine Besylate (Norvasc) 10 mg DAILY 11/01/19 12:00 11/02/19 10:15 10 MG Ampicillin Sodium 2 gm/Sodium Chloride 100 ml @ 200 mls/hr Q4HRS 11/01/19 12:00 11/03/19 04:20 200 MLS/HR Ascorbic Acid (Vitamin C) 500 mg HS 11/01/19 21:00 11/02/19 21:19 500 MG Clonidine HCl (Catapres Tts-2) 1 patch 1X ONCE 10/31/19 01:15 10/31/19 01:16 DC 10/31/19 01:31 1 PATCH Daptomycin 440 mg/ Sodium Chloride 50 ml @ 100 mls/hr ONCE ONCE 10/31/19 21:30 10/31/19 22:00 DC 10/31/19 21:47 100 MLS/HR Daptomycin 450 mg/ Sodium Chloride 50 ml @ 100 mls/hr Q24H 11/01/19 21:30 11/02/19 23:20 100 MLS/HR Dexamethasone Sodium Phosphate (Decadron) 4 mg Q6H 10/30/19 22:55 11/03/19 04:25 4 MG Fentanyl Citrate (Fentanyl 2ml Vial) 100 mcg STK-MED ONCE 10/30/19 18:39 10/30/19 18:40 DC Gadoterate Meglumine (Dotarem) 16 ml 1X ONCE 11/02/19 16:15 11/02/19 16:20 DC 11/02/19 16:39 16 ML Hydralazine HCl (Apresoline Inj) 10 mg PRN Q4HRS PRN 10/31/19 14:30 10/31/19 20:21 10 MG Hydrochlorothiazide (Hydrodiuril) 25 mg DAILY 11/01/19 12:00 11/02/19 08:46 25 MG Labetalol HCl (Normodyne Iv Push) 10 mg 1X ONCE 10/30/19 20:00 10/30/19 20:01 DC 10/30/19 19:55 10 MG Linezolid/Dextrose 300 ml @ 300 mls/hr Q12HR 11/01/19 10:00 11/02/19 21:17 300 MLS/HR Losartan Potassium (Cozaar) 100 mg DAILY 11/01/19 12:00 11/02/19 11:14 100 MG Metoprolol Tartrate (Lopressor) 50 mg 1X ONCE 11/01/19 11:15 11/01/19 11:16 DC 11/01/19 11:48 50 MG Morphine Sulfate (Morphine Sulfate) 2 mg PRN Q2HR PRN 10/30/19 20:30 10/31/19 20:29 DC Multivitamins (Thera M Plus) 1 tab HS 11/01/19 21:00 11/02/19 21:19 1 TAB Nicardipine HCl 50 mg/Sodium Chloride 250 ml @ 25 mls/hr CONT PRN 10/31/19 00:45 11/01/19 07:39 62.5 MLS/HR Ondansetron HCl (Zofran) 4 mg PRN Q8HRS PRN 10/30/19 20:30 10/31/19 20:29 DC Potassium Chloride/Sodium Chloride 1,000 ml @ 75 mls/hr [id number] 10/31/19 13:00 11/02/19 17:39 75 MLS/HR Potassium Chloride/Water 100 ml @ 50 mls/hr 1X ONCE 10/30/19 18:30 10/30/19 20:29 DC 10/30/19 18:20 50 MLS/HR Potassium Chloride (Klor-Con) 40 meq 1X ONCE 11/01/19 13:00 11/01/19 13:01 DC 11/01/19 13:58 40 MEQ Sodium Chloride 1,000 ml @ 100 mls/hr Q10H 10/31/19 11:00 10/31/19 13:01 DC 10/31/19 11:00 100 MLS/HR Sodium Chloride (Normal Saline Flush) 3 ml QSHIFT PRN 10/30/19 19:15 Lab Laboratory Tests Test 11/03/19 03:00 Sodium Level 146 mmol/L (136-145) Potassium Level 3.5 mmol/L (3.5-5.1) Chloride Level 111 mmol/L (98-107) Carbon Dioxide Level 27 mmol/L (21-32) Anion Gap 8 (6-14) Blood Urea Nitrogen 37 mg/dL (8-26) Creatinine 1.3 mg/dL (0.7-1.3) Estimated GFR (Cockcroft-Gault) 55.2 BUN/Creatinine Ratio 28 (6-20) Glucose Level 269 mg/dL (70-99) Calcium Level 8.5 mg/dL (8.5-10.1) Total Bilirubin 0.2 mg/dL (0.2-1.0) Aspartate Amino Transf (AST/SGOT) 37 U/L (15-37) Alanine Aminotransferase (ALT/SGPT) 51 U/L (16-63) Alkaline Phosphatase 152 U/L (46-116) Total Protein 5.6 g/dL (6.4-8.2) Albumin 2.1 g/dL (3.4-5.0) Albumin/Globulin Ratio 0.6 (1.0-1.7) Results All relevant outside records, renal labs, imaging studies, telemetry/EKG's were reviewed. JE RIBEIRO MD November 03, 2019 09:33
[2019-11-03] MEDS ORDERED: PIP/TAZO PER PHARMACY MC PRN (09:45)
[2019-11-03] MEDS: hydroCHLOROthiazide 25 MG TABLET PO SCH (09:55)
[2019-11-03] MEDS: METOPROLOL TART IMMED RELEASE 50 MG TABLET. PO SCH ×2 (09:56→23:01)
[2019-11-03] MEDS: amLODIPine BESYLATE 10 MG TABLET PO SCH (09:56)
[2019-11-03] MEDS: LOSARTAN POTASSIUM 50 MG TABLET. PO SCH (09:57)
--- NOTE | 2019-11-03 10:09 | PDOC2 ---
CONSULT Date of Consult Date of Consult DATE: 11/03/19 TIME: 09:54 Consult: Hematology oncology, Dr. Holder Chief complaint: New brain metastasis HPI: The patient is a 64-year-old man who has widely metastatic colon cancer and has been on chemotherapy in the past most recently started on approximately 10 October oral chemotherapy 5-FU based called Lonsurf or trifluridine/tipiracil given on days 1 through 5 and 8 through 12 every 28 days, currently he is on hold with chemo, and he was admitted with concern for new brain metastasis. He has edema and he is on dexamethasone and neurosurgery has evaluated him and CT scans do show widely metastatic disease, he also has shoulder pain and a recent fall prior to admission with concern for being down for quite some time. Brain mets new, assoc w/ fall, worse due to underlying cancer, R frontal, 2 lesions, sx are moderate, mets are acutely noted. 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 tach Osteoarthritis Shoulder pain Bacteremia Surgical history: Colostomy Hernia repair bilateral inguinal with umbilical I&D scrotal Allergies: No known drug allergies Medications: See attached list Social history: He does not have anyone as a caregiver but his neighbors keep a close eye on him Review of systems: Some weight loss, difficulty remembering how to take his pills correctly, recent fall, slight facial droop, otherwise 10 point review of systems negative. Physical exam: Vitals reviewed including low-grade fever recently HEENT: Slight facial droop, normocephalic atraumatic Nodes: No obvious lymphadenopathy neck or axilla Lungs: Breathing comfortably without any evidence of respiratory distress Abdomen: Ostomy, bandage over umbilical area, soft, nontender Extremities: Trace edema bilateral lower extremities Skin: Warm, slightly diaphoretic Psych: Pleasant mood and affect Neuro: Alert and oriented x3, hypertalkative Labs: CEA on 20 October was 4211 Here white count 14, hemoglobin 11.6, platelets 228, MCV of 83 INR 1.3 Creatinine 1.3 Alk phos 152 Urine culture with gram-negative rods Blood culture with gram-positive cocci suggestive of strep COVID-19 testing negative per report Radiology: Brain MRI shows 2 enhancing right frontal lobe lesions concerning for metastatic disease with extensive right edema with [address] chest abdomen pelvis shows thoracic and abdominal and pelvic progressive lymphadenopathy compared to August 2018, numerous lytic lesions, lung and adrenal metastasis including 2.5 cm right upper lobe and suspicious liver metastases Labs, [facility], please see note for summary details. Assessment and plan: He is a 64-year-old man with widely metastatic progressive colon cancer with new brain metastasis recently started oral chemotherapy in September, he is currently on his first cycle during his 2 weeks off Brain metastasis: Appreciate neurosurgical eval, he is on dexamethasone for the edema, do recommend radiation oncology eval for possible palliative radiotherapy, will consult rad Onc here Widely metastatic colon cancer: He will follow-up with Dr. Haji after discharge and may continue the Lonsurf after potential radiotherapy for brain mets? If not getting neurosurgical surgery, do agree radiation would probably better serve him with his widely metastatic systemic disease. Positive troponin: Cardiology is involved DVT prophylaxis: Would recommend SCDs until his brain metastasis is treated Low-grade fever with history of chronic infections: Appreciate ID input Disposition: Would wait for radiation oncology eval and then have him follow-up with Dr. Haji upon discharge, and NSG prn Thank you kindly for this consultation, and please do not hesitate to call with further questions. Past Medical History Cardiovascular: HTN Pulmonary: Other CENTRAL NERVOUS SYSTEM: Other GI: Other Heme/Onc: Cancer (Stage IV metastatic to lung and liver) Hepatobiliary: Cholelithiasis, Other Psych: No pertinent hx Musculoskeletal: Osteoarthritis Rheumatologic: No pertinent hx Infectious disease: No pertinent hx Renal/: Chronic renal insuff, UTI Endocrine: No pertinent hx Dermatology: Other (Ivan's gangrene) Past Surgical History Past Surgical History: Hernia Repair (Chronic wound infection umbilical hernia, also bilateral inguinal), Colon Resection (Colostomy), Other (Incision and drainage of scrotal area) Family History Family History: Adopted Social History ALCOHOL: none Drugs: None Lives: Alone Current Problem List Problem List Problems Medical Problems: (1) [id number] kidney injury Status: Acute (2) Cerebral mass Status: Acute (3) Elevated troponin I level Status: Acute (4) Hypokalemia Status: Acute (5) Left-sided weakness Status: Acute Current Medications Current Medications Current Medications Sodium Chloride 1,000 ml @ 2,000 mls/hr 1X ONCE IV Last administered on 10/30/19at 18:13; Start 10/30/19 at 17:30; Stop 10/30/19 at 17:59; Status DC Potassium Chloride/Water 100 ml @ 50 mls/hr 1X ONCE IV Last administered on 10/30/19at 18:20; Start 10/30/19 at 18:30; Stop 10/30/19 at 20:29; Status DC Fentanyl Citrate (Fentanyl 2ml Vial) 50 mcg 1X ONCE IVP Last administered on 10/30/19at 18:41; Start 10/30/19 at 18:30; Stop 10/30/19 at 18:39; Status DC Fentanyl Citrate (Fentanyl 2ml Vial) 100 mcg STK-MED ONCE .ROUTE ; Start 10/30/19 at 18:39; Stop 10/30/19 at 18:40; Status DC Sodium Chloride (Normal Saline Flush) 3 ml QSHIFT PRN IV AFTER MEDS AND BLOOD DRAWS; Start 10/30/19 at 19:15 Sodium Chloride 1,000 ml @ 999 mls/hr Q1H1M STAT IV Last administered on 10/30/19at 19:42; Start 10/30/19 at 19:06; Stop 10/30/19 at 20:06; Status DC Labetalol HCl (Normodyne Iv Push) 10 mg 1X ONCE IVP Last administered on 10/30/19at 19:55; Start 10/30/19 at 20:00; Stop 10/30/19 at 20:01; Status DC Dexamethasone Sodium Phosphate (Decadron) 10 mg 1X ONCE IV Last administered on 10/30/19at 20:12; Start 10/30/19 at 20:15; Stop 10/30/19 at 20:16; Status DC Ondansetron HCl (Zofran) 4 mg PRN Q8HRS PRN IV NAUSEA/VOMITING; Start 10/30/19 at 20:30; Stop 10/31/19 at 20:29; Status DC Morphine Sulfate (Morphine Sulfate) 2 mg PRN Q2HR PRN IV PAIN; Start 10/30/19 at 20:30; Stop 10/31/19 at 20:29; Status DC Sodium Chloride 1,000 ml @ 125 mls/hr Q8H IV Last administered on 10/30/19at 23:08; Start 10/30/19 at 20:19; Stop 10/31/19 at 10:06; Status DC Acetaminophen (Tylenol) 650 mg PRN Q4HRS PRN PO FEVER > 100.3'F; Start 10/30/19 at 20:30; Stop 10/31/19 at 20:29; Status DC Dexamethasone Sodium Phosphate (Decadron) 4 mg Q6H IV ; Start 10/30/19 at 20:30; Stop 10/30/19 at 22:55; Status DC Dexamethasone Sodium Phosphate (Decadron) 4 mg Q6H IV Last administered on 11/03/19at 04:25; Start 10/30/19 at 22:55 Nicardipine HCl 50 mg/Sodium Chloride 250 ml @ 25 mls/hr CONT PRN IV SEE I/O RECORD Last administered on 11/01/19at 07:39; Start 10/31/19 at 00:45 Clonidine HCl (Catapres Tts-2) 1 patch 1X ONCE TD Last administered on 10/31/19at 01:31; Start 10/31/19 at 01:15; Stop 10/31/19 at 01:16; Status DC Metoprolol Tartrate (Lopressor) 25 mg BID PO Last administered on 11/01/19at 08:53; Start 10/31/19 at 10:00; Stop 11/01/19 at 11:09; Status DC Sodium Chloride 1,000 ml @ 100 mls/hr Q10H IV Last administered on 10/31/19at 11:00; Start 10/31/19 at 11:00; Stop 10/31/19 at 13:01; Status DC Potassium Chloride/Sodium Chloride 1,000 ml @ 75 mls/hr [id number] IV Last administered on 11/03/19at 09:44; Start 10/31/19 at 13:00 Hydralazine HCl (Apresoline Inj) 10 mg PRN Q4HRS PRN IVP ELEVATED BP, SEE COMMENTS Last administered on 10/31/19at 20:21; Start 10/31/19 at 14:30 Daptomycin 440 mg/ Sodium Chloride 50 ml @ 100 mls/hr ONCE ONCE IV Last administered on 10/31/19at 21:47; Start 10/31/19 at 21:30; Stop 10/31/19 at 22:00; Status DC Potassium Chloride (Klor-Con) 40 meq 1X ONCE PO Last administered on 11/01/19at 08:53; Start 11/01/19 at 08:45; Stop 11/01/19 at 08:46; Status DC Potassium Chloride (Klor-Con) 40 meq 1X ONCE PO Last administered on 11/01/19at 11:49; Start 11/01/19 at 11:00; Stop 11/01/19 at 11:01; Status DC Potassium Chloride (Klor-Con) 40 meq 1X ONCE PO Last administered on 11/01/19at 13:58; Start 11/01/19 at 13:00; Stop 11/01/19 at 13:01; Status DC Daptomycin 450 mg/ Sodium Chloride 50 ml @ 100 mls/hr Q24H IV Last administered on 11/02/19at 23:20; Start 11/01/19 at 21:30 Ampicillin Sodium 2 gm/Sodium Chloride 100 ml @ 200 mls/hr Q4HRS IV Last administered on 11/03/19at 04:20; Start 11/01/19 at 12:00; Stop 11/03/19 at 09:33; Status DC Linezolid/Dextrose 300 ml @ 300 mls/hr Q12HR IV Last administered on 11/02/19 21:17; Start 11/01/19 at 10:00 Amlodipine Besylate (Norvasc) 10 mg DAILY PO Last administered on 11/02/19at 10:1 5; Start 11/01/19 at 12:00 Hydrochlorothiazide (Hydrodiuril) 25 mg DAILY PO Last administered on 11/02/19at 08:46; Start 11/01/19 at 12:00 Metoprolol Tartrate (Lopressor) 100 mg BID PO Last administered on 11/02/19 21:19; Start 11/01/19 at 21:00 Losartan Potassium (Cozaar) 100 mg DAILY PO Last administered on 11/02/19at 11:14; Start 11/01/19 at 12:00 Metoprolol Tartrate (Lopressor) 25 mg 1X ONCE PO Last administered on 11/01/19at 11:50; Start 11/01/19 at 11:15; Stop 11/01/19 at 11:16; Status DC Metoprolol Tartrate (Lopressor) 50 mg 1X ONCE PO Last administered on 11/01/19at 11:48; Start 11/01/19 at 11:15; Stop 11/01/19 at 11:16; Status DC Acetaminophen (Tylenol) 650 mg PRN Q6HRS PRN PO MILD PAIN / TEMP > 100.3'F; Start 11/01/19 at 14:30 Multivitamins (Thera M Plus) 1 tab HS PO Last administered on 11/02/19at 21:19; Start 11/01/19 at 21:00 Ascorbic Acid (Vitamin C) 500 mg HS PO Last administered on 11/02/19at 21:19; Start 11/01/19 at 21:00 Gadoterate Meglumine (Dotarem) 16 ml 1X ONCE IVP Last administered on 11/02/19at 16:39; Start 11/02/19 at 16:15; Stop 11/02/19 at 16:20; Status DC Piperacillin Sod/ Tazobactam Sod (Zosyn Per Pharmacy) 1 each PRN DAILY PRN MC SEE COMMENTS; Start 11/03/19 at 09:45 Piperacillin Sod/ Tazobactam Sod 3.375 gm/Sodium Chloride 50 ml @ 100 mls/hr Q6HRS IV ; Start 11/03/19 at 12:00 Active Scripts Active Reported Magnesium (Magnesium Oxide) 400 Mg Capsule 400 Mg PO BID Hydrochlorothiazide 25 Mg Tablet 25 Mg PO DAILY Klor-Con 10 (Potassium Chloride) 10 Meq Tablet.er 10 Mcg PO TID Losartan Potassium 100 Mg Tablet 30 Mg PO DAILY Amlodipine Besylate 10 Mg Tablet 10 Mg PO DAILY Metoprolol Tartrate 50 Mg Tablet 100 Mg PO BID Xarelto (Rivaroxaban) 20 Mg Tablet 20 Mg PO DAILY Allergies Allergies: Coded Allergies: No Known Drug Allergies (Unverified , 10/08/18) Vitals VITALS Vital Signs Date Time Temp Pulse Resp B/P (MAP) Pulse Ox O2 Delivery O2 Flow Rate FiO2 11/03/19 07:15 97.8 83 18 113/80 (91) 93 Room Air 97.8 Labs Labs Laboratory Tests Test 11/01/19 20:30 11/02/19 04:40 11/03/19 03:00 Potassium Level 3.9 mmol/L (3.5-5.1) 4.4 mmol/L (3.5-5.1) 3.5 mmol/L (3.5-5.1) Magnesium Level 1.9 mg/dL (1.8-2.4) 2.0 mg/dL (1.8-2.4) Sodium Level 148 mmol/L (136-145) 146 mmol/L (136-145) Chloride Level 113 mmol/L (98-107) 111 mmol/L (98-107) Carbon Dioxide Level 26 mmol/L (21-32) 27 mmol/L (21-32) Anion Gap 9 (6-14) 8 (6-14) Blood Urea Nitrogen 39 mg/dL (8-26) 37 mg/dL (8-26) Creatinine 1.2 mg/dL (0.7-1.3) 1.3 mg/dL (0.7-1.3) Estimated GFR (Cockcroft-Gault) 60.6 55.2 Glucose Level 171 mg/dL (70-99) 269 mg/dL (70-99) Calcium Level 9.2 mg/dL (8.5-10.1) 8.5 mg/dL (8.5-10.1) Creatine Kinase 75 U/L (39-308) Triglycerides Level 62 mg/dL (0-150) Cholesterol Level 137 mg/dL (0-200) LDL Cholesterol, Calculated 71 mg/dL (0-100) VLDL Cholesterol, Calculated 12 mg/dL (0-40) Non-HDL Cholesterol Calculated 83 mg/dL (0-129) HDL Cholesterol 54 mg/dL (40-60) Cholesterol/HDL Ratio 2.5 BUN/Creatinine Ratio 28 (6-20) Total Bilirubin 0.2 mg/dL (0.2-1.0) Aspartate Amino Transf (AST/SGOT) 37 U/L (15-37) Alanine Aminotransferase (ALT/SGPT) 51 U/L (16-63) Alkaline Phosphatase 152 U/L (46-116) Total Protein 5.6 g/dL (6.4-8.2) Albumin 2.1 g/dL (3.4-5.0) Albumin/Globulin Ratio 0.6 (1.0-1.7) Laboratory Tests Test 11/03/19 03:00 Sodium Level 146 mmol/L (136-145) Potassium Level 3.5 mmol/L (3.5-5.1) Chloride Level 111 mmol/L (98-107) Carbon Dioxide Level 27 mmol/L (21-32) Anion Gap 8 (6-14) Blood Urea Nitrogen 37 mg/dL (8-26) Creatinine 1.3 mg/dL (0.7-1.3) Estimated GFR (Cockcroft-Gault) 55.2 BUN/Creatinine Ratio 28 (6-20) Glucose Level 269 mg/dL (70-99) Calcium Level 8.5 mg/dL (8.5-10.1) Total Bilirubin 0.2 mg/dL (0.2-1.0) Aspartate Amino Transf (AST/SGOT) 37 U/L (15-37) Alanine Aminotransferase (ALT/SGPT) 51 U/L (16-63) Alkaline Phosphatase 152 U/L (46-116) Total Protein 5.6 g/dL (6.4-8.2) Albumin 2.1 g/dL (3.4-5.0) Albumin/Globulin Ratio 0.6 (1.0-1.7) LEODAN HOLDER MD November 03, 2019 10:09
--- NOTE | 2019-11-03 10:35 | NUR ---
This RN had a sticky note left on desk with pt's critical result from 0832. This RN arrived at desk at [address] Rothman by telephone. Pt had small gram + rods 1 of 2 bottles, 1 set. Orders already addressed by Dr. Rothman, refer to EMAR for details.
[2019-11-03 11:00] VITALS: BP 169/85
--- NOTE | 2019-11-03 11:05 | PDOC ---
PROGRESS NOTES Assessment Problems Medical Problems: (1) Helxa-ci-odquadb kidney injury Status: Acute (2) Cerebral mass Status: Acute (3) Elevated troponin I level Status: Acute (4) Hypokalemia Status: Acute (5) Left-sided weakness Status: Acute Large area of edema in the superior right frontal lobe, metastatic colon cancer, MRI brain, CT body reviewed, see below Osteoarthritis or rotator cuff problems in both shoulders COVID19 negative. Medical issues include acute kidney injury, elevated troponin, hypokalemia, colon cancer, metastatic, chronic abdominal wound Plan Oncology consult, also likely needs radiation oncology consult Neurosurgery has seen, not a good surgical candidate Dexamethasone Rehabilitation modalities Subjective No complaints Objective Vital Signs Date Time Temp Pulse Resp B/P (MAP) Pulse Ox O2 Delivery O2 Flow Rate FiO2 11/03/19 09:57 88 156/82 11/03/19 08:00 Room Air 11/03/19 07:15 97.8 18 93 97.8 Intake and Output 11/03/19 07:00 Intake Total 480 ml Output Total 4100 ml Balance -3620 ml Intake Oral 480 ml Output Urine Total 4100 ml # Bowel Movements 2 PHYSICAL EXAM Alert. Oriented to time, place and person. PERRL. EOMI. CN: no focal findings. Muscle tone: normal. Muscle strength: Limited range of motion of shoulders bilaterally, also left pronator drift, otherwise 5/5 strength with normal tone and bulk DTR: 2+ Plantar reflex: Flexor Gait: not examined in bed. Sensory exam: no abnormal findings. No cerebellar signs elicited. Review of Relevant I have reviewed the following items renetta (where applicable) has been applied. Labs Laboratory Tests Test 11/01/19 20:30 11/02/19 04:40 11/03/19 03:00 Potassium Level 3.9 mmol/L (3.5-5.1) 4.4 mmol/L (3.5-5.1) 3.5 mmol/L (3.5-5.1) Magnesium Level 1.9 mg/dL (1.8-2.4) 2.0 mg/dL (1.8-2.4) Sodium Level 148 mmol/L (136-145) 146 mmol/L (136-145) Chloride Level 113 mmol/L (98-107) 111 mmol/L (98-107) Carbon Dioxide Level 26 mmol/L (21-32) 27 mmol/L (21-32) Anion Gap 9 (6-14) 8 (6-14) Blood Urea Nitrogen 39 mg/dL (8-26) 37 mg/dL (8-26) Creatinine 1.2 mg/dL (0.7-1.3) 1.3 mg/dL (0.7-1.3) Estimated GFR (Cockcroft-Gault) 60.6 55.2 Glucose Level 171 mg/dL (70-99) 269 mg/dL (70-99) Calcium Level 9.2 mg/dL (8.5-10.1) 8.5 mg/dL (8.5-10.1) Creatine Kinase 75 U/L (39-308) Triglycerides Level 62 mg/dL (0-150) Cholesterol Level 137 mg/dL (0-200) LDL Cholesterol, Calculated 71 mg/dL (0-100) VLDL Cholesterol, Calculated 12 mg/dL (0-40) Non-HDL Cholesterol Calculated 83 mg/dL (0-129) HDL Cholesterol 54 mg/dL (40-60) Cholesterol/HDL Ratio 2.5 BUN/Creatinine Ratio 28 (6-20) Total Bilirubin 0.2 mg/dL (0.2-1.0) Aspartate Amino Transf (AST/SGOT) 37 U/L (15-37) Alanine Aminotransferase (ALT/SGPT) 51 U/L (16-63) Alkaline Phosphatase 152 U/L (46-116) Total Protein 5.6 g/dL (6.4-8.2) Albumin 2.1 g/dL (3.4-5.0) Albumin/Globulin Ratio 0.6 (1.0-1.7) Laboratory Tests Test 11/03/19 03:00 Sodium Level 146 mmol/L (136-145) Potassium Level 3.5 mmol/L (3.5-5.1) Chloride Level 111 mmol/L (98-107) Carbon Dioxide Level 27 mmol/L (21-32) Anion Gap 8 (6-14) Blood Urea Nitrogen 37 mg/dL (8-26) Creatinine 1.3 mg/dL (0.7-1.3) Estimated GFR (Cockcroft-Gault) 55.2 BUN/Creatinine Ratio 28 (6-20) Glucose Level 269 mg/dL (70-99) Calcium Level 8.5 mg/dL (8.5-10.1) Total Bilirubin 0.2 mg/dL (0.2-1.0) Aspartate Amino Transf (AST/SGOT) 37 U/L (15-37) Alanine Aminotransferase (ALT/SGPT) 51 U/L (16-63) Alkaline Phosphatase 152 U/L (46-116) Total Protein 5.6 g/dL (6.4-8.2) Albumin 2.1 g/dL (3.4-5.0) Albumin/Globulin Ratio 0.6 (1.0-1.7) Microbiology 10/30/19 Urine Culture - Preliminary, Resulted 10/30/19 Urine Culture Result 1 (PRIMITIVO) - Preliminary, Resulted 10/30/19 Blood Culture - Final, Complete Medications Current Medications Sodium Chloride 1,000 ml @ 2,000 mls/hr 1X ONCE IV Last administered on 10/30/19at 18:13; Start 10/30/19 at 17:30; Stop 10/30/19 at 17:59; Status DC Potassium Chloride/Water 100 ml @ 50 mls/hr 1X ONCE IV Last administered on 10/30/19at 18:20; Start 10/30/19 at 18:30; Stop 10/30/19 at 20:29; Status DC Fentanyl Citrate (Fentanyl 2ml Vial) 50 mcg 1X ONCE IVP Last administered on 10/30/19at 18:41; Start 10/30/19 at 18:30; Stop 10/30/19 at 18:39; Status DC Fentanyl Citrate (Fentanyl 2ml Vial) 100 mcg STK-MED ONCE .ROUTE ; Start 10/30/19 at 18:39; Stop 10/30/19 at 18:40; Status DC Sodium Chloride (Normal Saline Flush) 3 ml QSHIFT PRN IV AFTER MEDS AND BLOOD DRAWS; Start 10/30/19 at 19:15 Sodium Chloride 1,000 ml @ 999 mls/hr Q1H1M STAT IV Last administered on 10/30/19at 19:42; Start 10/30/19 at 19:06; Stop 10/30/19 at 20:06; Status DC Labetalol HCl (Normodyne Iv Push) 10 mg 1X ONCE IVP Last administered on at 19:55; Start 10/30/19 at 20:00; Stop 5/2/20 at 20:01; Status DC Dexamethasone Sodium Phosphate (Decadron) 10 mg 1X ONCE IV Last administered on 10/30/19at 20:12; Start 10/30/19 at 20:15; Stop 10/30/19 at 20:16; Status DC Ondansetron HCl (Zofran) 4 mg PRN Q8HRS PRN IV NAUSEA/VOMITING; Start 10/30/19 at 20:30; Stop 10/31/19 at 20:29; Status DC Morphine Sulfate (Morphine Sulfate) 2 mg PRN Q2HR PRN IV PAIN; Start 10/30/19 at 20:30; Stop 10/31/19 at 20:29; Status DC Sodium Chloride 1,000 ml @ 125 mls/hr Q8H IV Last administered on 10/30/19at 23:08; Start 10/30/19 at 20:19; Stop 10/31/19 at 10:06; Status DC Acetaminophen (Tylenol) 650 mg PRN Q4HRS PRN PO FEVER > 100.3'F; Start 10/30/19 at 20:30; Stop 10/31/19 at 20:29; Status DC Dexamethasone Sodium Phosphate (Decadron) 4 mg Q6H IV ; Start 10/30/19 at 20:30; Stop 10/30/19 at 22:55; Status DC Dexamethasone Sodium Phosphate (Decadron) 4 mg Q6H IV Last administered on 11/03/19at 04:25; Start 10/30/19 at 22:55 Nicardipine HCl 50 mg/Sodium Chloride 250 ml @ 25 mls/hr CONT PRN IV SEE I/O RECORD Last administered on 11/01/19at 07:39; Start 10/31/19 at 00:45 Clonidine HCl (Catapres Tts-2) 1 patch 1X ONCE TD Last administered on 10/31/19at 01:31; Start 10/31/19 at 01:15; Stop 10/31/19 at 01:16; Status DC Metoprolol Tartrate (Lopressor) 25 mg BID PO Last administered on 11/01/19at 08:53; Start 10/31/19 at 10:00; Stop 11/01/19 at 11:09; Status DC Sodium Chloride 1,000 ml @ 100 mls/hr Q10H IV Last administered on 10/31/19at 11:00; Start 10/31/19 at 11:00; Stop 10/31/19 at 13:01; Status DC Potassium Chloride/Sodium Chloride 1,000 ml @ 75 mls/hr [id number] IV Last administered on 11/03/19at 09:44; Start 10/31/19 at 13:00 Hydralazine HCl (Apresoline Inj) 10 mg PRN Q4HRS PRN IVP ELEVATED BP, SEE COMMENTS Last administered on 10/31/19at 20:21; Start 10/31/19 at 14:30 Daptomycin 440 mg/ Sodium Chloride 50 ml @ 100 mls/hr ONCE ONCE IV Last administered on 10/31/19at 21:47; Start 10/31/19 at 21:30; Stop 10/31/19 at 22:00; Status DC Potassium Chloride (Klor-Con) 40 meq 1X ONCE PO Last administered on 11/01/19at 08:53; Start 11/01/19 at 08:45; Stop 11/01/19 at 08:46; Status DC Potassium Chloride (Klor-Con) 40 meq 1X ONCE PO Last administered on 11/01/19at 11:49; Start 11/01/19 at 11:00; Stop 11/01/19 at 11:01; Status DC Potassium Chloride (Klor-Con) 40 meq 1X ONCE PO Last administered on 11/01/19at 13:58; Start 11/01/19 at 13:00; Stop 11/01/19 at 13:01; Status DC Daptomycin 450 mg/ Sodium Chloride 50 ml @ 100 mls/hr Q24H IV Last administered on 11/02/19at 23:20; Start 11/01/19 at 21:30 Ampicillin Sodium 2 gm/Sodium Chloride 100 ml @ 200 mls/hr Q4HRS IV Last administered on 11/03/19at 04:20; Start 11/01/19 at 12:00; Stop 11/03/19 at 09:33; Status DC Linezolid/Dextrose 300 ml @ 300 mls/hr Q12HR IV Last administered on 11/03/19at 09:57; Start 11/01/19 at 10:00 Amlodipine Besylate (Norvasc) 10 mg DAILY PO Last administered on 11/03/19at 09:56; Start 5/4/20 at 12:00 Hydrochlorothiazide (Hydrodiuril) 25 mg DAILY PO Last administered on 11/03/19at 09:55; Start 11/01/19 at 12:00 Metoprolol Tartrate (Lopressor) 100 mg BID PO Last administered on 11/03/19at 09:56; Start 11/01/19 at 21:00 Losartan Potassium (Cozaar) 100 mg DAILY PO Last administered on 11/03/19at 09:57; Start 11/01/19 at 12:00 Metoprolol Tartrate (Lopressor) 25 mg 1X ONCE PO Last administered on 11/01/19at 11:50; Start 11/01/19 at 11:15; Stop 11/01/19 at 11:16; Status DC Metoprolol Tartrate (Lopressor) 50 mg 1X ONCE PO Last administered on 11/01/19at 11:48; Start 11/01/19 at 11:15; Stop 11/01/19 at 11:16; Status DC Acetaminophen (Tylenol) 650 mg PRN Q6HRS PRN PO MILD PAIN / TEMP > 100.3'F; Start 11/01/19 at 14:30 Multivitamins (Thera M Plus) 1 tab HS PO Last administered on 11/02/19at 21:19; Start 11/01/19 at 21:00 Ascorbic Acid (Vitamin C) 500 mg HS PO Last administered on 11/02/19at 21:19; Start 11/01/19 at 21:00 Gadoterate Meglumine (Dotarem) 16 ml 1X ONCE IVP Last administered on 11/02/19at 16:39; Start 11/02/19 at 16:15; Stop 11/02/19 at 16:20; Status DC Piperacillin Sod/ Tazobactam Sod (Zosyn Per Pharmacy) 1 each PRN DAILY PRN MC SEE COMMENTS; Start 11/03/19 at 09:45 Piperacillin Sod/ Tazobactam Sod 3.375 gm/Sodium Chloride 50 ml @ 100 mls/hr Q6HRS IV ; Start 11/03/19 at 12:00 Active Scripts Active Reported Magnesium (Magnesium Oxide) 400 Mg Capsule 400 Mg PO BID Hydrochlorothiazide 25 Mg Tablet 25 Mg PO DAILY Klor-Con 10 (Potassium Chloride) 10 Meq Tablet.er 10 Mcg PO TID Losartan Potassium 100 Mg Tablet 30 Mg PO DAILY Amlodipine Besylate 10 Mg Tablet 10 Mg PO DAILY Metoprolol Tartrate 50 Mg Tablet 100 Mg PO BID Xarelto (Rivaroxaban) 20 Mg Tablet 20 Mg PO DAILY Vitals/I & O Vital Sign - Last 24 Hours 11/02/19 11/02/19 11/02/19 11/02/19 11:14 12:00 13:00 14:00 Temp 97.8 97.8 Pulse 72 74 78 81 Resp 22 20 21 B/P (MAP) 145/62 160/80 (106) 170/74 (106) 138/67 (90) Pulse Ox 93 93 97 O2 Delivery Room Air Room Air Room Air 11/02/19 11/02/19 11/02/19 11/02/19 15:00 19:38 20:10 21:19 Temp 98.0 98.0 98.0 98.0 Pulse 80 80 80 Resp 21 21 B/P (MAP) 144/70 (94) 133/63 (86) 133/63 Pulse Ox 97 98 O2 Delivery Room Air Room Air Room Air 11/02/19 11/03/19 11/03/19 11/03/19 23:10 03:00 07:15 08:00 Temp 98.1 97.7 97.8 98.1 97.7 97.8 Pulse 73 71 83 Resp 21 18 18 B/P (MAP) 123/72 (89) 153/55 (87) 113/80 (91) Pulse Ox 97 93 93 O2 Delivery Room Air Room Air Room Air Room Air 11/03/19 11/03/19 11/03/19 09:56 09:56 09:57 Pulse 88 88 88 B/P (MAP) 156/82 156/82 156/82 Intake and Output 11/02/19 11/02/19 11/03/19 15:00 23:00 07:00 Intake Total 240 ml 240 ml Output Total 2700 ml 1400 ml Balance -2700 ml 240 ml -1160 ml Images BRAIN WO/W CONTRAST Date: 11/02/2019 8:00 AM Indication: Brain mass on CT. History of colon cancer. Comparison: CT 10/30/2019. Technique: Multiplanar multisequence MRI of the brain was performed with and without intravenous contrast using the standard protocol. 16 cc Dotarem contrast was administered intravenously during the exam. Findings: Right frontal lobe necrotic enhancing mass measuring 2.3 x 2.2 cm. Additional right high frontal lobe parafalcine mass measuring 1.5 x 1.2 cm. Extensive surrounding edema with right hemispheric sulcal effacement, partial effacement of the right lateral ventricle, and 2 mm right left midline shift. Patent basilar cisterns. No acute infarct. No acute or chronic hemorrhage. Ventricles are not dilated. Mild scattered FLAIR hyperintensities in the subcortical and periventricular deep white matter, a nonspecific finding, most commonly seen with chronic small vessel ischemic disease. Small area of left frontoparietal encephalomalacia. The scalp and calvarium are normal. The pituitary and sella are normal. No Chiari malformation. The visualized upper cervical spine is normal. The visualized orbits and globes are normal. The visualized paranasal sinuses are clear. Trace right mastoid fluid. Normal flow voids within the vertebral, basilar, and internal carotid arteries indicating patency. IMPRESSION: Two enhancing right frontal lobe lesions concerning for metastatic disease, given history of malignancy. Extensive right hemispheric edema with 2 mm right to left midline shift. CT Chest, Abdomen and Pelvis without IV contrast CLINICAL HISTORY: History of colon cancer, brain likely ascites, restaging COMPARISON: 09/22/2018, 01/31/2015 TECHNIQUE: Helical CT of the chest, abdomen and pelvis was performed without intravenous contrast. Axial, coronal and sagittal reformatted images were generated. ---PQRS compliance statement - One or more of the following individualized dose reduction techniques were utilized for this study: 1. Automated exposure control 2. Adjustment of the mA and/or kV according to patient size 3. Use of iterative reconstruction technique--- FINDINGS: Lack of intravenous contrast limits evaluation of solid organs, vasculature, and lymph nodes. Chest: Heart is mildly enlarged. Small pericardial effusion. Coronary artery calcifications are seen. No axillary lymphadenopathy. A precarinal lymph node measures 2.7 x 2.2 cm. Bilateral hilar lymphadenopathy is also suspected although cannot be accurately delineated given the noncontrast examination. A left supraclavicular lymph node measures the 2.4 x 1.7 cm. Enlarged prevascular lymph nodes are also seen. Trace right pleural effusion. Emphysematous changes are seen bilaterally. A 2.5 x 2.3 cm right upper lobe mass (series 2 image 21) is seen. Several small nodular satellite nodules are seen. In addition a 7 mm right upper lobe lung nodule (series 2 image 19) is seen. Several additional smaller nodules are seen bilaterally. No focal consolidation/atelectasis or lung nodule measuring 1.1 cm is seen in the left lower lobe at the left posterior costophrenic angle (series 2 image 53). Abdomen and Pelvis: A 2.2 cm right hepatic lobe hypodense lesion measures greater than simple fluid on today's examination. Additional hypodense lesions are seen in the inferior right hepatic lobe. Small gallstone is seen at the gallbladder neck. Gallbladder is otherwise unremarkable. No biliary ductal dilatation. Pancreas is grossly unremarkable. Spleen is normal in appearance. Right adrenal gland is unremarkable. A left adrenal nodule measures 2.4 x 2.1 cm, previously 1.4 cm. Contrast within the renal collecting systems may be related to previously administered contrast for MRI brain. No focal renal lesion. No hydronephrosis. No hydroureter. Saravia catheter and foci of gas are seen within the decompressed bladder. Prominent and borderline enlarged retroperitoneal lymph nodes are seen. A lymph node just cephalad to the celiac artery measures 2 x 1.2 cm, now seen on prior examination. Enlarged pelvic lymphadenopathy. For example a left iliac chain lymph node measures 1.8 x 1.4 cm. Several enlarged left inguinal lymph nodes are also seen. A 1.9 x 1.7 cm lymph node is seen between the left and right common iliac arteries, previously 4 mm short axis. Several additional enlarged lymph nodes are seen within the abdomen and pelvis. No small or large bowel dilatation. Changes of right lower quadrant ostomy are seen. Changes of Sanjay pouch identified. Fat-containing left inguinal hernia is seen. Fat-containing left inguinal hernia. No abdominal or pelvic ascites. Bones: Numerous bilateral lytic lesions are seen. For example a 3.3 x 1.9 cm lytic lesion is seen in the right iliac wing, new. Lytic lesion within the left L3 transverse process is seen. Lytic lesion within the left coracoid process and right glenoid. IMPRESSION: Findings are consistent with progression of metastatic disease with new/enlarging thoracic, abdominal and pelvic lymphadenopathy, numerous new lytic lesions as well as parenchymal lung lesions and enlarging left adrenal lesion.. In addition a 2.5 cm nodular mass in the right upper lobe may represent a separate primary malignancy or focus of metastasis. Hypodense lesions within the liver were seen on prior examination although on today's examination measuring greater than simple fluid. Underlying metastatic disease is also suspected however can be confirmed by MRI. No bowel obstruction. Changes of right lower quadrant ostomy. MITCH WISDOM MD November 03, 2019 11:05
--- NOTE | 2019-11-03 11:46 | PDOC ---
COLLEEN GOMEZ [employer] 11/03/19 1146: CARDIO Progress Notes Date and Time Date of Service 11/03/19 Time of Evaluation 1115 Subjective Subjective: No Chest Pain, No shortness of breath, No Palpitations Vitals Vitals Vital Signs Date Time Temp Pulse Resp B/P (MAP) Pulse Ox O2 Delivery O2 Flow Rate FiO2 11/03/19 11:00 98.1 82 18 169/85 (113) 97 Room Air 98.1 Weight Weight [ ] Input and Output Intake and Output Intake and Output 11/03/19 07:00 Intake Total 480 ml Output Total 4100 ml Balance -3620 ml Intake Oral 480 ml Output Urine Total 4100 ml # Bowel Movements 2 Laboratory Labs Laboratory Tests Test 11/03/19 03:00 Sodium Level 146 mmol/L (136-145) Potassium Level 3.5 mmol/L (3.5-5.1) Chloride Level 111 mmol/L (98-107) Carbon Dioxide Level 27 mmol/L (21-32) Anion Gap 8 (6-14) Blood Urea Nitrogen 37 mg/dL (8-26) Creatinine 1.3 mg/dL (0.7-1.3) Estimated GFR (Cockcroft-Gault) 55.2 BUN/Creatinine Ratio 28 (6-20) Glucose Level 269 mg/dL (70-99) Calcium Level 8.5 mg/dL (8.5-10.1) Total Bilirubin 0.2 mg/dL (0.2-1.0) Aspartate Amino Transf (AST/SGOT) 37 U/L (15-37) Alanine Aminotransferase (ALT/SGPT) 51 U/L (16-63) Alkaline Phosphatase 152 U/L (46-116) Total Protein 5.6 g/dL (6.4-8.2) Albumin 2.1 g/dL (3.4-5.0) Albumin/Globulin Ratio 0.6 (1.0-1.7) Microbiology Micro Microbiology 10/30/19 Urine Culture - Preliminary, Resulted 10/30/19 Urine Culture Result 1 (PRIMITIVO) - Preliminary, Resulted 10/30/19 Blood Culture - Final, Complete Physical Exam HEENT: Neck Supple W Full Motion Chest: Symmetric LUNGS: Clear to Auscultation Heart: S1S2, RRR Abdomen: Soft N/T Extremities: No Edema Neurology: alert, oriented, follow commands Assessment Assessment 1. Fall, generalized weakness. Reportedly down for > 24 hrs 2. THAD; improved 3. Hypernatremia, hypokalemia; resolved 4. Stage 4 Colon CA with mets to lungs and liver treated with chemotherapy. Follows at . 5. Superior right frontal lobe edema. MRI with evidence of brain metastasis. [facility] following. Radiation oncology to see 6. Hypertensive urgency; off Ministerio, much better controlled 7. Mild trop elevation; peak 0.166. most probable type II, demand ischemia; multiple culprits noted above. Recent echo with preserved LV systolic function. CP free. 8. H/o DVT on Xarelto 9. Low-grade fevers, bacteremia 10. 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 Arrhythmia; had one episode of 12-beat NSVT on tele. Mg WNL. No further arrhythmias noted on tele overnight. Recommendations Continue current antiHTN therapy Keep Mg > 2.0 and K > 4.0 Follow trends; add hydralazine if BP remains elevated. Supportive care from a CV standpoint. Antibiotic therapy as per ID Follow [facility] recs Plan for conservative measures CV de jesus, given advanced metastatic disease. DOE YE MD 11/03/19 1619: CARDIO Progress Notes Assessment Assessment Patient seen and examined Fall, generalized weakness. Reportedly down for > 24 hrs. One episode was 12 beats of NSVT. Continue to monitor. Continue monitoring of electrolytes. THAD; improved Stage 4 Colon CA with mets to lungs and liver treated with chemotherapy. Follows at . Superior right frontal lobe edema. MRI with evidence of brain metastasis. [facility] following. Radiation oncology to see Hypertensive urgency; off Ministerio, much better controlled Mild trop elevation; peak 0.166. most probable type II, demand ischemia; multiple culprits noted above. Recent echo with preserved LV systolic function. CP free. COLLEEN GOMEZ APRN November 03, 2019 11:46 DOE YE MD November 03, 2019 16:19
--- NOTE | 2019-11-03 12:39 | NUR ---
SW following. Chart reviewed, therapy notes in, referral sent to [facility] per pt's wishes. SW awaiting acceptance decision and insurance auth. CRYSTAL will continue to follow. Addendum: 11/03/19 at 1619 by ABDELRAHMAN ROJAS [facility] declined to take pt due to pt's cancer medications as well as pt being on the COVID-19 floor. CRYSTAL advised pt is on the "clean" side of the COVID floor and tested negative for COVID-19. CRYSTAL asked for a reconsideration and if pt could bring his chemo medication from home. Kianna came back on the line and advised her DON said if pt can be moved to a non COVID floor, retested and no signs or symptoms for 14 days they could take pt. CRYSTAL advised it is not feasible for pt to stay in the hospital for 14 days with no medical need. Alta NICOLE advised CRYSTAL, pt's second choice was [facility]. Referral was faxed to [facility], awaiting acceptance decision. CRYSTAL will continue to follow.
[2019-11-03] MEDS: PIPERACILLIN/TAZOBACTAM 3.375 GM in IV NORMAL SALINE 50ML 50 ML IV SCH ×3 (12:40→23:52)
[2019-11-03] MEDS ORDERED: POTASSIUM CHLORIDE 20 MEQ TABLET.ER. PO ONE (14:45)
[2019-11-03 15:00] VITALS: BP 154/77
--- NOTE | 2019-11-03 18:20 | PDOC2 ---
CONSULT Date of Consult Date of Consult DATE: 11/03/19 TIME: 17:15 Reason for Consult Reason for Consult: Brain metastases from metastatic colon cancer. Referring Physician Referring Physician: Dr. Holder Identification/Chief Complaint Chief Complaint Brain metastases History of Present Illness Reason for Visit: Mr. Nath is a 64-year-old male with stage IV colon cancer since 2014. He was admitted to [facility] for bowel obstruction. CT abdomen and pelvis on 01/12/2015 showed colonic obstruction with no evidence for metastatic disease. He underwent exploratory laparotomy on 01/13/2015. Pathology showed a 4.7 cm ulcerated obstructing invasive adenocarcinoma of the colon with mucinous component in the distal colon, invading through muscularis and mesocolic soft tissue with focal tumor at visceral serosal surface. 4/22 lymph nodes were involved, along with implants of the mesocolon, appendix, mesoappendix, and multiple omental implants. K-jackie mutant. From 03/07/2015 to 09/12/2015, he completed [address] abdomen pelvis on 12/22/2015 showed disease progression with peritoneal nodules. From 01/09/2016 to 06/11/2016, he completed 12 cycles of FOLFIRI and avastin. He then had a treatment holiday. He had disease progression based on CEA level rise. He had radiation treatment to right upper lobe nodule, completed 02/23/2018. Official record is not available for review. PET/CT on 04/16/2018 showed progression of disease. He resumed FOLFIRI and avastin on 04/28/2018. He completed 10 cycles by 09/15 when he had necrotizing fasciitis requiring surgery, antibiotic, chcf placement, and wound care. After his scrotal lesions have completely healed, he resumed chemotherapy on 03/09/2019 with FOLFIRI for disease progression. He completed cycle 20 on 07/13/2019 when he developed sepsis with acute renal failure requiring temporary hemodialysis. CEA on 09/20/[address] chest abdomen pelvis on 10/07/2019 showed disease progression with new mediastinal, right hilar masses, increased pulmonary and pleural metastatic disease, abdominal, retroperitoneal, and pelvic lymph node masses, hepatic and left adrenal metastatic disease. He started oral chemotherapy 5-FU based called Lonsurf on 10/11/19. He was admitted on 10/30/2019 when he was unable to get up after falling on the stairs while trying to answer the door. CT head on 10/30/2019 showed a large area of edema in the right frontal lobe. MRI brain on 11/02/2019 showed 2 enhancing masses in the right frontal lobe, measuring 2.3 cm and 1.5 cm respectively. He is on dexamethasone. He had neurosurgery evaluation. CT chest abdomen pelvis on 11/02/2019 showed widespread metastatic disease, including numerous lytic lesions in bone, intra-abdominal masses, liver metastases, lung and mediastinal metastases, and left supraclavicular lymph node. He has no headache, diplopia, or visual changes. He wears eyeglasses. He was able to get by living by himself at home prior to his fall. Past Medical History Cardiovascular: HTN Pulmonary: Other CENTRAL NERVOUS SYSTEM: Other GI: Other Heme/Onc: Cancer (Stage IV metastatic to lung and liver) Hepatobiliary: Cholelithiasis, Other Psych: No pertinent hx Musculoskeletal: Osteoarthritis Rheumatologic: No pertinent hx Infectious disease: No pertinent hx Renal/: Chronic renal insuff, UTI Endocrine: No pertinent hx Dermatology: Other (Ivan's gangrene) Past Surgical History Past Surgical History: Hernia Repair (Chronic wound infection umbilical hernia, also bilateral inguinal), Colon Resection (Colostomy), Other (Incision and drainage of scrotal area) Family History Family History: Family History Unknown, Adopted Social History ALCOHOL: none Drugs: None Lives: Alone Current Problem List Problem List Problems Medical Problems: (1) [id number] kidney injury Status: Acute (2) Cerebral mass Status: Acute (3) Elevated troponin I level Status: Acute (4) Hypokalemia Status: Acute (5) Left-sided weakness Status: Acute Current Medications Current Medications Current Medications Sodium Chloride 1,000 ml @ 2,000 mls/hr 1X ONCE IV Last administered on 10/30/19at 18:13; Start 10/30/19 at 17:30; Stop 10/30/19 at 17:59; Status DC Potassium Chloride/Water 100 ml @ 50 mls/hr 1X ONCE IV Last administered on 10/30/19at 18:20; Start 10/30/19 at 18:30; Stop 10/30/19 at 20:29; Status DC Fentanyl Citrate (Fentanyl 2ml Vial) 50 mcg 1X ONCE IVP Last administered on 10/30/19at 18:41; Start 10/30/19 at 18:30; Stop 10/30/19 at 18:39; Status DC Fentanyl Citrate (Fentanyl 2ml Vial) 100 mcg STK-MED ONCE .ROUTE ; Start 10/30/19 at 18:39; Stop 10/30/19 at 18:40; Status DC Sodium Chloride (Normal Saline Flush) 3 ml QSHIFT PRN IV AFTER MEDS AND BLOOD DRAWS; Start 10/30/19 at 19:15 Sodium Chloride 1,000 ml @ 999 mls/hr Q1H1M STAT IV Last administered on 10/30/19at 19:42; Start 10/30/19 at 19:06; Stop 10/30/19 at 20:06; Status DC Labetalol HCl (Normodyne Iv Push) 10 mg 1X ONCE IVP Last administered on 10/30/19at 19:55; Start 10/30/19 at 20:00; Stop 10/30/19 at 20:01; Status DC Dexamethasone Sodium Phosphate (Decadron) 10 mg 1X ONCE IV Last administered on 10/30/19at 20:12; Start 10/30/19 at 20:15; Stop 10/30/19 at 20:16; Status DC Ondansetron HCl (Zofran) 4 mg PRN Q8HRS PRN IV NAUSEA/VOMITING; Start 10/30/19 at 20:30; Stop 10/31/19 at 20:29; Status DC Morphine Sulfate (Morphine Sulfate) 2 mg PRN Q2HR PRN IV PAIN; Start 10/30/19 at 20:30; Stop 10/31/19 at 20:29; Status DC Sodium Chloride 1,000 ml @ 125 mls/hr Q8H IV Last administered on 10/30/19at 23:08; Start 10/30/19 at 20:19; Stop 10/31/19 at 10:06; Status DC Acetaminophen (Tylenol) 650 mg PRN Q4HRS PRN PO FEVER > 100.3'F; Start 10/30/19 at 20:30; Stop 10/31/19 at 20:29; Status DC Dexamethasone Sodium Phosphate (Decadron) 4 mg Q6H IV ; Start 10/30/19 at 20:30; Stop 10/30/19 at 22:55; Status DC Dexamethasone Sodium Phosphate (Decadron) 4 mg Q6H IV Last administered on 11/03/19at 16:49; Start 10/30/19 at 22:55 Nicardipine HCl 50 mg/Sodium Chloride 250 ml @ 25 mls/hr CONT PRN IV SEE I/O RECORD Last administered on 11/01/19at 07:39; Start 10/31/19 at 00:45 Clonidine HCl (Catapres Tts-2) 1 patch 1X ONCE TD Last administered on 10/31/19at 01:31; Start 10/31/19 at 01:15; Stop 10/31/19 at 01:16; Status DC Metoprolol Tartrate (Lopressor) 25 mg BID PO Last administered on 11/01/19 08:53; Start 10/31/19 at 10:00; Stop 11/01/19 at 11:09; Status DC Sodium Chloride 1,000 ml @ 100 mls/hr Q10H IV Last administered on 10/31/19at 11:00; Start 10/31/19 at 11:00; Stop 10/31/19 at 13:01; Status DC Potassium Chloride/Sodium Chloride 1,000 ml @ 75 mls/hr [id number] IV Last administered on 11/03/19at 09:44; Start 10/31/19 at 13:00 Hydralazine HCl (Apresoline Inj) 10 mg PRN Q4HRS PRN IVP ELEVATED BP, SEE COMMENTS Last administered on 10/31/19at 20:21; Start 10/31/19 at 14:30 Daptomycin 440 mg/ Sodium Chloride 50 ml @ 100 mls/hr ONCE ONCE IV Last administered on 10/31/19at 21:47; Start 10/31/19 at 21:30; Stop 10/31/19 at 22:00; Status DC Potassium Chloride (Klor-Con) 40 meq 1X ONCE PO Last administered on 11/01/19at 08:53; Start 11/01/19 at 08:45; Stop 11/01/19 at 08:46; Status DC Potassium Chloride (Klor-Con) 40 meq 1X ONCE PO Last administered on 11/01/19at 11:49; Start 11/01/19 at 11:00; Stop 11/01/19 at 11:01; Status DC Potassium Chloride (Klor-Con) 40 meq 1X ONCE PO Last administered on 11/01/19 13:58; Start 11/01/19 at 13:00; Stop 11/01/19 at 13:01; Status DC Daptomycin 450 mg/ Sodium Chloride 50 ml @ 100 mls/hr Q24H IV Last administered on 11/02/19 23:20; Start 11/01/19 at 21:30 Ampicillin Sodium 2 gm/Sodium Chloride 100 ml @ 200 mls/hr Q4HRS IV Last administered on 11/03/19 04:20; Start 11/01/19 at 12:00; Stop 11/03/19 at 09:33; Status DC Linezolid/Dextrose 300 ml @ 300 mls/hr Q12HR IV Last administered on 11/03/19 09:57; Start 11/01/19 at 10:00 Amlodipine Besylate (Norvasc) 10 mg DAILY PO Last administered on 11/03/19 09:56; Start 11/01/19 at 12:00 Hydrochlorothiazide (Hydrodiuril) 25 mg DAILY PO Last administered on 11/03/19 09:55; Start 11/01/19 at 12:00 Metoprolol Tartrate (Lopressor) 100 mg BID PO Last administered on 11/03/19 09:56; Start 11/01/19 at 21:00 Losartan Potassium (Cozaar) 100 mg DAILY PO Last administered on 11/03/19 09:57; Start 11/01/19 at 12:00 Metoprolol Tartrate (Lopressor) 25 mg 1X ONCE PO Last administered on 11/01/19at 11:50; Start 11/01/19 at 11:15; Stop 11/01/19 at 11:16; Status DC Metoprolol Tartrate (Lopressor) 50 mg 1X ONCE PO Last administered on 11/01/19at 11:48; Start 11/01/19 at 11:15; Stop 11/01/19 at 11:16; Status DC Acetaminophen (Tylenol) 650 mg PRN Q6HRS PRN PO MILD PAIN / TEMP > 100.3'F; Start 11/01/19 at 14:30 Multivitamins (Thera M Plus) 1 tab HS PO Last administered on 11/02/19at 21:19; Start 11/01/19 at 21:00 Ascorbic Acid (Vitamin C) 500 mg HS PO Last administered on 11/02/19at 21:19; Start 11/01/19 at 21:00 Gadoterate Meglumine (Dotarem) 16 ml 1X ONCE IVP Last administered on 11/02/19at 16:39; Start 11/02/19 at 16:15; Stop 11/02/19 at 16:20; Status DC Piperacillin Sod/ Tazobactam Sod (Zosyn Per Pharmacy) 1 each PRN DAILY PRN MC SEE COMMENTS; Start 11/03/19 at 09:45 Piperacillin Sod/ Tazobactam Sod 3.375 gm/Sodium Chloride 50 ml @ 100 mls/hr Q6HRS IV Last administered on 11/03/19at 12:40; Start 11/03/19 at 12:00 Potassium Chloride (Klor-Con) 20 meq 1X ONCE PO Last administered on 11/03/19at 15:03; Start 11/03/19 at 14:45; Stop 11/03/19 at 14:49; Status DC Active Scripts Active Reported Magnesium (Magnesium Oxide) 400 Mg Capsule 400 Mg PO BID Hydrochlorothiazide 25 Mg Tablet 25 Mg PO DAILY Klor-Con 10 (Potassium Chloride) 10 Meq Tablet.er 10 Mcg PO TID Losartan Potassium 100 Mg Tablet 30 Mg PO DAILY Amlodipine Besylate 10 Mg Tablet 10 Mg PO DAILY Metoprolol Tartrate 50 Mg Tablet 100 Mg PO BID Xarelto (Rivaroxaban) 20 Mg Tablet 20 Mg PO DAILY Allergies Allergies: Coded Allergies: No Known Drug Allergies (Unverified , 10/08/18) Physical Exam General: Alert, Oriented X3, Cooperative, No acute distress HEENT: PERRLA, EOMI, Mucous membr. moist/pink Lungs: Normal air movement Heart: Regular rate, No murmurs Abdomen: Soft (colostomy right lower quadrant) Extremities: No edema Skin: No rashes Neuro: Normal speech, Strength at 5/5 X4 ext, Normal tone, Cranial nerves 3-12 NL, Other Psych/Mental Status: Mental status NL Vitals VITALS Vital Signs Date Time Temp Pulse Resp B/P (MAP) Pulse Ox O2 Delivery O2 Flow Rate FiO2 11/03/19 15:00 98.0 77 18 154/77 (102) 93 Room Air 98.0 Labs Labs Laboratory Tests Test 11/01/19 20:30 11/02/19 04:40 11/03/19 03:00 Potassium Level 3.9 mmol/L (3.5-5.1) 4.4 mmol/L (3.5-5.1) 3.5 mmol/L (3.5-5.1) Magnesium Level 1.9 mg/dL (1.8-2.4) 2.0 mg/dL (1.8-2.4) Sodium Level 148 mmol/L (136-145) 146 mmol/L (136-145) Chloride Level 113 mmol/L (98-107) 111 mmol/L (98-107) Carbon Dioxide Level 26 mmol/L (21-32) 27 mmol/L (21-32) Anion Gap 9 (6-14) 8 (6-14) Blood Urea Nitrogen 39 mg/dL (8-26) 37 mg/dL (8-26) Creatinine 1.2 mg/dL (0.7-1.3) 1.3 mg/dL (0.7-1.3) Estimated GFR (Cockcroft-Gault) 60.6 55.2 Glucose Level 171 mg/dL (70-99) 269 mg/dL (70-99) Calcium Level 9.2 mg/dL (8.5-10.1) 8.5 mg/dL (8.5-10.1) Creatine Kinase 75 U/L (39-308) Triglycerides Level 62 mg/dL (0-150) Cholesterol Level 137 mg/dL (0-200) LDL Cholesterol, Calculated 71 mg/dL (0-100) VLDL Cholesterol, Calculated 12 mg/dL (0-40) Non-HDL Cholesterol Calculated 83 mg/dL (0-129) HDL Cholesterol 54 mg/dL (40-60) Cholesterol/HDL Ratio 2.5 BUN/Creatinine Ratio 28 (6-20) Total Bilirubin 0.2 mg/dL (0.2-1.0) Aspartate Amino Transf (AST/SGOT) 37 U/L (15-37) Alanine Aminotransferase (ALT/SGPT) 51 U/L (16-63) Alkaline Phosphatase 152 U/L (46-116) Total Protein 5.6 g/dL (6.4-8.2) Albumin 2.1 g/dL (3.4-5.0) Albumin/Globulin Ratio 0.6 (1.0-1.7) Laboratory Tests Test 11/03/19 03:00 Sodium Level 146 mmol/L (136-145) Potassium Level 3.5 mmol/L (3.5-5.1) Chloride Level 111 mmol/L (98-107) Carbon Dioxide Level 27 mmol/L (21-32) Anion Gap 8 (6-14) Blood Urea Nitrogen 37 mg/dL (8-26) Creatinine 1.3 mg/dL (0.7-1.3) Estimated GFR (Cockcroft-Gault) 55.2 BUN/Creatinine Ratio 28 (6-20) Glucose Level 269 mg/dL (70-99) Calcium Level 8.5 mg/dL (8.5-10.1) Total Bilirubin 0.2 mg/dL (0.2-1.0) Aspartate Amino Transf (AST/SGOT) 37 U/L (15-37) Alanine Aminotransferase (ALT/SGPT) 51 U/L (16-63) Alkaline Phosphatase 152 U/L (46-116) Total Protein 5.6 g/dL (6.4-8.2) Albumin 2.1 g/dL (3.4-5.0) Albumin/Globulin Ratio 0.6 (1.0-1.7) Assessment/Plan Assessment/Plan 64-year-old male who has stage IV colon cancer with ongoing systemic therapy for more than 4 years. He now has 2 intracranial lesions in the right frontal lobe, consistent with metastatic colon cancer. Plan: We discussed palliative radiotherapy to the 2 intracranial lesions in the right frontal lobe. Radiation procedure involves planning CT with head mask followed by 3-5 daily stereotactic radiosurgical treatments. The side effects, including the acute and late side effects, were discussed with the patient. He agreed to come to radiation oncology clinic to review MRI images prior to undergoing planning CT tomorrow. MARIAN LOPEZ MD November 03, 2019 18:20
[2019-11-03 19:20] VITALS: BP 144/73
[2019-11-03 22:56] VITALS: BP 157/77
[2019-11-03] MEDS: MULTIVITAMIN with MINERAL TABLET. PO SCH (23:00)
[2019-11-03] MEDS: ASCORBIC ACID 500 MG TABLET PO SCH (23:00)
[2019-11-03] MEDS: DAPTOmycin (GENERIC) IVPB 450 MG in IV NORMAL SALINE 50ML 50 ML IV SCH (23:33)
[2019-11-04 03:02] VITALS: BP 149/69
[2019-11-04] MEDS: DEXAMETHASONE SOD PHOS 4 MG/ML VIAL IV SCH ×3 (06:16→18:19)
[2019-11-04] MEDS: PIPERACILLIN/TAZOBACTAM 3.375 GM in IV NORMAL SALINE 50ML 50 ML IV SCH ×3 (06:16→18:18)
[2019-11-04 07:15] VITALS: BP 174/82
--- NOTE | 2019-11-04 09:26 | PDOC ---
Infectious Disease Note Subjective Subjective Doing ok. Went to XRT to review plan. IV came out Denies SPARKS or visual change. No F/C/S/N/V/SOA/rash/weakness ROS ROS o/w neg Vital Sign Vital Signs Vital Signs Date Time Temp Pulse Resp B/P (MAP) Pulse Ox O2 Delivery O2 Flow Rate FiO2 11/04/19 07:15 98.2 63 20 174/82 (112) 96 Room Air 98.2 Physical Exam PHYSICAL EXAM CONSTITUTIONAL: He is siitting on side of bed. He is cooperative. He is in no acute distress. HEENT: Pupils are equal. EOMI He has normal conjunctivae. Oral cavity, pharynx is clear, but he has questionable dentition. NECK: Supple, no JVD. LUNGS: Clear to auscultation. HEART: S1, S2. Previous Port-A-Cath site without complications. ABDOMEN: Soft and nontender. No guarding. Positive bowel sounds. Ostomy without signs of any complications. Abdominal wound without signs of gross infection or some scabbed areas. EXTREMITIES: No clubbing, cyanosis or gross edema. GENITOURINARY: He does have a Sar[place] in place. SKIN: Warm to touch without signs of rash. NEUROLOGIC: He is alert, answering questions appropriately. PSYCHIATRIC: Affect is appropriate. Labs Micro MRI head IMPRESSION: Two enhancing right frontal lobe lesions concerning for metastatic disease, given history of malignancy. Extensive right hemispheric edema with 2 mm right to left midline shift. CT Chest/abd/pel IMPRESSION: Findings are consistent with progression of metastatic disease with new/enlarging thoracic, abdominal and pelvic lymphadenopathy, numerous new lytic lesions as well as parenchymal lung lesions and enlarging left adrenal lesion.. In addition a 2.5 cm nodular mass in the right upper lobe may represent a separate primary malignancy or focus of metastasis. Hypodense lesions within the liver were seen on prior examination although on today's examination measuring greater than simple fluid. Underlying metastatic disease is also suspected however can be confirmed by MRI. No bowel obstruction. Changes of right lower quadrant ostomy. CT 10/29 IMPRESSION: Large area of edema in the superior right frontal lobe ; differential consideration of an underlying intra-axial mass versus edema from cerebritis. Consider MRI with and without IV contrast in further evaluation. Microbiology 10/30/19 Blood Culture - Final, Complete Objective Assessment Bacteremia 1/2 bottles 10/29 ? Strep possible Enterococcus - s/p Dapto times one 5/ now small GPR also GNR in urine COVID - neg Leukocytosis - on Dexamethasone Large area of edema in the superior right frontal lobe: differential consi deration of an underlying intra-axial mass versus edema from cerebritis. Fever Colon cancer metastatic undergoing chemo at [facility]. 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 Clarke at [facility] - currently does not look infected Poor dentition HTN Hypernatremia H/o THAD H/o Methicillin sensitive Staph aureus bacteremia ba cath removed 08/05/2019 H/o Influenza B Plan Plan of Care Cont Daptomycin given h/o THAD at risk for VRE. On RA and not SOA- No cough but add Zyvox with brain mass D/c Ampicillin given GNR in urine and GPR in blood now - brain mass begin zosyn 11/02 Palliative brain XRT planned F/u labs in am and cults Electrolytes per primary Wound care consult D/w nursing NEW VALDEZ MD November 04, 2019 09:26
--- NOTE | 2019-11-04 09:54 | PDOC ---
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 Clarke at [facility] currently seems asymptomatic Hypernatremia secondary to severe dehydration improved Acute renal failure vasomotor etiology most likely improved with hydration Generalized weakness and deconditioning Bacteremia 1 of 2 bottles questionable strep will continue to follow results of culture Leukocytosis most likely secondary to demargination from steroids Acute febrile illness trying to rule out COVID-19 Essential hypertension Plan Follow results of COVID-19 Currently hemodynamically stable Seems to be awake oriented in person time place and situation Supportive measures Further recommendations based on the clinical course He has an MRI of the head and CT of the chest abdomen pelvis pending results of his COVID-19 testing as per protocol Reassess in the a.m. History of Present Illness History of Present Illness No acute events reported overnight, case discussed with nursing staff patient in no acute distress no complaints during my visit, quite talkative. NO new neurolgical deficits evident. Awaiting for MRI. he can be transferred to a telemetry floor when bed available. Vitals Vitals Vital Signs Date Time Temp Pulse Resp B/P (MAP) Pulse Ox O2 Delivery O2 Flow Rate FiO2 11/04/19 07:15 98.2 63 20 174/82 (112) 96 Room Air 98.2 Physical Exam Physical Exam CONSTITUTIONAL: He is siitting in chair. He is cooperative. He is in no acute distress. HEENT: Pupils are equal. EOMI He has normal conjunctivae. Oral cavity, pharynx is clear, but he has questionable dentition. NECK: Supple, no JVD. LUNGS: Clear to auscultation. HEART: S1, S2. Previous Port-A-Cath site without complications. ABDOMEN: Soft and nontender. No guarding. Positive bowel sounds. Ostomy without signs of any complications. Abdominal wound without signs of gross infection or some scabbed areas. EXTREMITIES: No clubbing, cyanosis or gross edema. GENITOURINARY: He does have a Saravia in place. SKIN: Warm to touch without signs of rash. NEUROLOGIC: He is alert, answering questions appropriately. PSYCHIATRIC: Affect is appropriate. General: Alert, Oriented X3, Cooperative, No acute distress Heart: Regular rate, No murmurs Lungs: Clear Abdomen: Soft (colostomy right lower quadrant) Extremities: No edema Skin: No rashes Assessment and Plan Assessmemt and Plan Problems Medical Problems: (1) Mbrza-fx-iyiwiva kidney injury Status: Acute (2) Cerebral mass Status: Acute (3) Elevated troponin I level Status: Acute (4) Hypokalemia Status: Acute (5) Left-sided weakness Status: Acute Comment Review of Relevant I have reviewed the following items renetta (where applicable) has been applied. Labs Laboratory Tests Test 11/03/19 03:00 Sodium Level 146 mmol/L (136-145) Potassium Level 3.5 mmol/L (3.5-5.1) Chloride Level 111 mmol/L (98-107) Carbon Dioxide Level 27 mmol/L (21-32) Anion Gap 8 (6-14) Blood Urea Nitrogen 37 mg/dL (8-26) Creatinine 1.3 mg/dL (0.7-1.3) Estimated GFR (Cockcroft-Gault) 55.2 BUN/Creatinine Ratio 28 (6-20) Glucose Level 269 mg/dL (70-99) Calcium Level 8.5 mg/dL (8.5-10.1) Total Bilirubin 0.2 mg/dL (0.2-1.0) Aspartate Amino Transf (AST/SGOT) 37 U/L (15-37) Alanine Aminotransferase (ALT/SGPT) 51 U/L (16-63) Alkaline Phosphatase 152 U/L (46-116) Total Protein 5.6 g/dL (6.4-8.2) Albumin 2.1 g/dL (3.4-5.0) Albumin/Globulin Ratio 0.6 (1.0-1.7) Microbiology 10/30/19 Urine Culture - Preliminary, Resulted 10/30/19 Urine Culture Result 1 (PRIMITIVO) - Preliminary, Resulted 10/30/19 Blood Culture - Preliminary, Resulted 10/30/19 Blood Culture Result 1 (PRIMITIVO) - Preliminary, Resulted Medications Current Medications Sodium Chloride 1,000 ml @ 2,000 mls/hr 1X ONCE IV Last administered on 10/30/19at 18:13; Start 10/30/19 at 17:30; Stop 10/30/19 at 17:59; Status DC Potassium Chloride/Water 100 ml @ 50 mls/hr 1X ONCE IV Last administered on 10/30/19at 18:20; Start 10/30/19 at 18:30; Stop 10/30/19 at 20:29; Status DC Fentanyl Citrate (Fentanyl 2ml Vial) 50 mcg 1X ONCE IVP Last administered on 10/30/19at 18:41; Start 10/30/19 at 18:30; Stop 10/30/19 at 18:39; Status DC Fentanyl Citrate (Fentanyl 2ml Vial) 100 mcg STK-MED ONCE .ROUTE ; Start 10/30/19 at 18:39; Stop 10/30/19 at 18:40; Status DC Sodium Chloride (Normal Saline Flush) 3 ml QSHIFT PRN IV AFTER MEDS AND BLOOD DRAWS; Start 10/30/19 at 19:15 Sodium Chloride 1,000 ml @ 999 mls/hr Q1H1M STAT IV Last administered on 10/30/19at 19:42; Start 10/30/19 at 19:06; Stop 10/30/19 at 20:06; Status DC Labetalol HCl (Normodyne Iv Push) 10 mg 1X ONCE IVP Last administered on 10/30/19at 19:55; Start 10/30/19 at 20:00; Stop 10/30/19 at 20:01; Status DC Dexamethasone Sodium Phosphate (Decadron) 10 mg 1X ONCE IV Last administered on 10/30/19at 20:12; Start 10/30/19 at 20:15; Stop 10/30/19 at 20:16; Status DC Ondansetron HCl (Zofran) 4 mg PRN Q8HRS PRN IV NAUSEA/VOMITING; Start 10/30/19 at 20:30; Stop 10/31/19 at 20:29; Status DC Morphine Sulfate (Morphine Sulfate) 2 mg PRN Q2HR PRN IV PAIN; Start 10/30/19 at 20:30; Stop 10/31/19 at 20:29; Status DC Sodium Chloride 1,000 ml @ 125 mls/hr Q8H IV Last administered on 10/30/19at 23:08; Start 10/30/19 at 20:19; Stop 10/31/19 at 10:06; Status DC Acetaminophen (Tylenol) 650 mg PRN Q4HRS PRN PO FEVER > 100.3'F; Start 10/30/19 at 20:30; Stop 10/31/19 at 20:29; Status DC Dexamethasone Sodium Phosphate (Decadron) 4 mg Q6H IV ; Start 10/30/19 at 20:30; Stop 10/30/19 at 22:55; Status DC Dexamethasone Sodium Phosphate (Decadron) 4 mg Q6H IV Last administered on 11/04/19at 06:16; Start 10/30/19 at 22:55 Nicardipine HCl 50 mg/Sodium Chloride 250 ml @ 25 mls/hr CONT PRN IV SEE I/O RECORD Last administered on 11/01/19at 07:39; Start 10/31/19 at 00:45 Clonidine HCl (Catapres Tts-2) 1 patch 1X ONCE TD Last administered on 10/31/19at 01:31; Start 10/31/19 at 01:15; Stop 10/31/19 at 01:16; Status DC Metoprolol Tartrate (Lopressor) 25 mg BID PO Last administered on 11/01/19at 08:53; Start 10/31/19 at 10:00; Stop 11/01/19 at 11:09; Status DC Sodium Chloride 1,000 ml @ 100 mls/hr Q10H IV Last administered on 10/31/19at 11:00; Start 10/31/19 at 11:00; Stop 10/31/19 at 13:01; Status DC Potassium Chloride/Sodium Chloride 1,000 ml @ 75 mls/hr [id number] IV Last administered on 11/03/19at 22:38; Start 10/31/19 at 13:00 Hydralazine HCl (Apresoline Inj) 10 mg PRN Q4HRS PRN IVP ELEVATED BP, SEE COMMENTS Last administered on 10/31/19at 20:21; Start 10/31/19 at 14:30 Daptomycin 440 mg/ Sodium Chloride 50 ml @ 100 mls/hr ONCE ONCE IV Last administered on 10/31/19at 21:47; Start 10/31/19 at 21:30; Stop 10/31/19 at 22:00; Status DC Potassium Chloride (Klor-Con) 40 meq 1X ONCE PO Last administered on 11/01/19at 08:53; Start 11/01/19 at 08:45; Stop 11/01/19 at 08:46; Status DC Potassium Chloride (Klor-Con) 40 meq 1X ONCE PO Last administered on 11/01/19at 11:49; Start 11/01/19 at 11:00; Stop 11/01/19 at 11:01; Status DC Potassium Chloride (Klor-Con) 40 meq 1X ONCE PO Last administered on 11/01/19at 13:58; Start 11/01/19 at 13:00; Stop 11/01/19 at 13:01; Status DC Daptomycin 450 mg/ Sodium Chloride 50 ml @ 100 mls/hr Q24H IV Last administered on 11/03/19at 23:33; Start 11/01/19 at 21:30 Ampicillin Sodium 2 gm/Sodium Chloride 100 ml @ 200 mls/hr Q4HRS IV Last administered on 11/03/19 04:20; Start 11/01/19 at 12:00; Stop 11/03/19 at 09:33; Status DC Linezolid/Dextrose 300 ml @ 300 mls/hr Q12HR IV Last administered on 11/03/19at 22:38; Start 11/01/19 at 10:00 Amlodipine Besylate (Norvasc) 10 mg DAILY PO Last administered on 11/03/19 09:56; Start 11/01/19 at 12:00 Hydrochlorothiazide (Hydrodiuril) 25 mg DAILY PO Last administered on 11/03/19 09:55; Start 11/01/19 at 12:00 Metoprolol Tartrate (Lopressor) 100 mg BID PO Last administered on 11/03/19at 23:01; Start 11/01/19 at 21:00 Losartan Potassium (Cozaar) 100 mg DAILY PO Last administered on 11/03/19 09 :57; Start 11/01/19 at 12:00 Metoprolol Tartrate (Lopressor) 25 mg 1X ONCE PO Last administered on 11/01/19at 11:50; Start 11/01/19 at 11:15; Stop 11/01/19 at 11:16; Status DC Metoprolol Tartrate (Lopressor) 50 mg 1X ONCE PO Last administered on 11/01/19at 11:48; Start 11/01/19 at 11:15; Stop 11/01/19 at 11:16; Status DC Acetaminophen (Tylenol) 650 mg PRN Q6HRS PRN PO MILD PAIN / TEMP > 100.3'F; Start 11/01/19 at 14:30 Multivitamins (Thera M Plus) 1 tab HS PO Last administered on 11/03/19at 23:00; Start 11/01/19 at 21:00 Ascorbic Acid (Vitamin C) 500 mg HS PO Last administered on 11/03/19at 23:00; Start 11/01/19 at 21:00 Gadoterate Meglumine (Dotarem) 16 ml 1X ONCE IVP Last administered on 11/02/19at 16:39; Start 11/02/19 at 16:15; Stop 11/02/19 at 16:20; Status DC Piperacillin Sod/ Tazobactam Sod (Zosyn Per Pharmacy) 1 each PRN DAILY PRN MC SEE COMMENTS; Start 11/03/19 at 09:45 Piperacillin Sod/ Tazobactam Sod 3.375 gm/Sodium Chloride 50 ml @ 100 mls/hr Q6HRS IV Last administered on 11/04/19at 06:16; Start 11/03/19 at 12:00 Potassium Chloride (Klor-Con) 20 meq 1X ONCE PO Last administered on 11/03/19at 15:03; Start 11/03/19 at 14:45; Stop 11/03/19 at 14:49; Status DC Active Scripts Active Reported Magnesium (Magnesium Oxide) 400 Mg Capsule 400 Mg PO BID Hydrochlorothiazide 25 Mg Tablet 25 Mg PO DAILY Klor-Con 10 (Potassium Chloride) 10 Meq Tablet.er 10 Mcg PO TID Losartan Potassium 100 Mg Tablet 30 Mg PO DAILY Amlodipine Besylate 10 Mg Tablet 10 Mg PO DAILY Metoprolol Tartrate 50 Mg Tablet 100 Mg PO BID Xarelto (Rivaroxaban) 20 Mg Tablet 20 Mg PO DAILY Vitals/I & O Vital Sign - Last 24 Hours 11/03/19 11/03/19 11/03/19 11/03/19 09:56 09:56 09:57 11:00 Temp 98.1 98.1 Pulse 88 88 88 82 Resp 18 B/P (MAP) 156/82 156/82 156/82 169/85 (113) Pulse Ox 97 O2 Delivery Room Air 11/03/19 11/03/19 11/03/19 11/03/19 15:00 19:20 20:15 22:56 Temp 98.0 98.1 98.3 98.0 98.1 98.3 Pulse 77 76 72 Resp 18 18 18 B/P (MAP) 154/77 (102) 144/73 (96) 157/77 (103) Pulse Ox 93 94 95 O2 Delivery Room Air Room Air Room Air Room Air 11/03/19 11/04/19 11/04/19 23:01 03:02 07:15 Temp 98.2 98.2 98.2 98.2 Pulse 76 77 63 Resp 18 20 B/P (MAP) 144/73 149/69 (95) 174/82 (112) Pulse Ox 93 96 O2 Delivery Room Air Room Air Intake and Output 11/03/19 11/03/19 11/04/19 15:00 23:00 07:00 Intake Total 1350 ml 50 ml Output Total 1100 ml 2100 ml Balance 250 ml 50 ml -2100 ml LIZ GRACIA MD November 04, 2019 09:54
[2019-11-04] MEDS: amLODIPine BESYLATE 10 MG TABLET PO SCH (10:41)
[2019-11-04] MEDS: LOSARTAN POTASSIUM 50 MG TABLET. PO SCH (10:42)
[2019-11-04] MEDS: METOPROLOL TART IMMED RELEASE 50 MG TABLET. PO SCH ×2 (10:42→21:25)
[2019-11-04] MEDS: hydroCHLOROthiazide 25 MG TABLET PO SCH (10:42)
[2019-11-04 11:09] VITALS: BP 134/80
--- NOTE | 2019-11-04 11:15 | PDOC ---
SUBJECTIVE ROS No complaints, No concerns voiced by RN OBJECTIVE Vital Signs Vital Signs Date Time Temp Pulse Resp B/P (MAP) Pulse Ox O2 Delivery O2 Flow Rate FiO2 11/04/19 11:09 98.2 64 18 134/80 (98) 95 Room Air 98.2 I & 0 Intake and Output 11/04/19 07:00 Intake Total 1400 ml Output Total 3200 ml Balance -1800 ml IV Total 1400 ml Output Urine Total 3200 ml # Voids 3 PHYSICAL EXAM Physical Exam GENERAL: NAD HEENT: Oropharynx moist NECK: Supple. LUNGS: Diminished at bases , nonlabored. HEART: S1, S2 regular. ABDOMEN: Soft, nontender, ostomy +. EXTREMITIES: No gross edema or cyanosis. SKIN: No signs of rash. NEUROLOGIC: Alert and awake, Chronic mild tremors Saravia + DIAGNOSIS/ASSESSMENT Assessment & Plan Acute kidney injury:Suspect ATN 2/2, Improved , stable (on 11/02) UA unremarkable, good uop, ? Polyuric Supportive care, Avoid nephrotoxins Hx of THAD in Jul 2019 - needing HD , improved Pt was off Dialysis when dc from [facility] in 2018 as well , baseline Cr has been normal Hypernatremia- corrected for glucose >146 , if not NPO encourage water intake No labs this am HypoKalemia- replace as indicated Widely metastatic colon cancer undergoing chemotherapy at [facility] Brain metastasis: - per neurosurg he is on dexamethasone for the edema, Onc recommends radiation possible palliative radiotherapy, Hx of infected abdominal hernia mesh history of scrotal abscess history of urinary tract infections COVID-19 negative Chronic abdominal wound for which he is followed by Dr. Clarke at [facility] COMMENT/RELEVANT DATA Meds Current Medications Medications (Trade) Dose Ordered Sig/Joseph Start Time Stop Time Status Last Admin Dose Admin Acetaminophen (Tylenol) 650 mg PRN Q6HRS PRN 11/01/19 14:30 Amlodipine Besylate (Norvasc) 10 mg DAILY 11/01/19 12:00 11/04/19 10:41 10 MG Ampicillin Sodium 2 gm/Sodium Chloride 100 ml @ 200 mls/hr Q4HRS 11/01/19 12:00 11/03/19 09:33 DC 11/03/19 04:20 200 MLS/HR Ascorbic Acid (Vitamin C) 500 mg HS 11/01/19 21:00 11/03/19 23:00 500 MG Clonidine HCl (Catapres Tts-2) 1 patch 1X ONCE 10/31/19 01:15 10/31/19 01:16 DC 10/31/19 01:31 1 PATCH Daptomycin 440 mg/ Sodium Chloride 50 ml @ 100 mls/hr ONCE ONCE 10/31/19 21:30 10/31/19 22:00 DC 10/31/19 21:47 100 MLS/HR Daptomycin 450 mg/ Sodium Chloride 50 ml @ 100 mls/hr Q24H 11/01/19 21:30 11/03/19 23:33 100 MLS/HR Dexamethasone Sodium Phosphate (Decadron) 4 mg Q6H 10/30/19 22:55 11/04/19 06:16 4 MG Fentanyl Citrate (Fentanyl 2ml Vial) 100 mcg STK-MED ONCE 10/30/19 18:39 10/30/19 18:40 DC Gadoterate Meglumine (Dotarem) 16 ml 1X ONCE 11/02/19 16:15 11/02/19 16:20 DC 11/02/19 16:39 16 ML Hydralazine HCl (Apresoline Inj) 10 mg PRN Q4HRS PRN 10/31/19 14:30 10/31/19 20:21 10 MG Hydrochlorothiazide (Hydrodiuril) 25 mg DAILY 11/01/19 12:00 11/04/19 10:42 25 MG Labetalol HCl (Normodyne Iv Push) 10 mg 1X ONCE 10/30/19 20:00 10/30/19 20:01 DC 10/30/19 19:55 10 MG Linezolid/Dextrose 300 ml @ 300 mls/hr Q12HR 11/01/19 10:00 11/04/19 10:43 300 MLS/HR Losartan Potassium (Cozaar) 100 mg DAILY 11/01/19 12:00 11/04/19 10:42 100 MG Metoprolol Tartrate (Lopressor) 50 mg 1X ONCE 11/01/19 11:15 11/01/19 11:16 DC 11/01/19 11:48 50 MG Morphine Sulfate (Morphine Sulfate) 2 mg PRN Q2HR PRN 10/30/19 20:30 10/31/19 20:29 DC Multivitamins (Thera M Plus) 1 tab HS 11/01/19 21:00 11/03/19 23:00 1 TAB Nicardipine HCl 50 mg/Sodium Chloride 250 ml @ 25 mls/hr CONT PRN 10/31/19 00:45 11/01/19 07:39 62.5 MLS/HR Ondansetron HCl (Zofran) 4 mg PRN Q8HRS PRN 10/30/19 20:30 10/31/19 20:29 DC Piperacillin Sod/ Tazobactam Sod (Zosyn Per Pharmacy) 1 each PRN DAILY PRN 11/03/19 09:45 Piperacillin Sod/ Tazobactam Sod 3.375 gm/Sodium Chloride 50 ml @ 100 mls/hr Q6HRS 11/03/19 12:00 11/04/19 06:16 100 MLS/HR Potassium Chloride/Sodium Chloride 1,000 ml @ 75 mls/hr [id number] 10/31/19 13:00 11/04/19 10:43 75 MLS/HR Potassium Chloride/Water 100 ml @ 50 mls/hr 1X ONCE 10/30/19 18:30 10/30/19 20:29 DC 10/30/19 18:20 50 MLS/HR Potassium Chloride (Klor-Con) 20 meq 1X ONCE 11/03/19 14:45 11/03/19 14:49 DC 11/03/19 15:03 20 MEQ Sodium Chloride 1,000 ml @ 100 mls/hr Q10H 10/31/19 11:00 10/31/19 13:01 DC 10/31/19 11:00 100 MLS/HR Sodium Chloride (Normal Saline Flush) 3 ml QSHIFT PRN 10/30/19 19:15 Results All relevant outside records, renal labs, imaging studies, telemetry/EKG's were reviewed. JE RIBEIRO MD November 04, 2019 11:15
--- NOTE | 2019-11-04 11:30 | PDOC ---
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 11/04/19 1130: CARDIO Progress Notes Date and Time Date of Service 11/04/19 Time of Evaluation 1110 Subjective Subjective: No Chest Pain, No shortness of breath, No Palpitations Vitals Vitals Vital Signs Date Time Temp Pulse Resp B/P (MAP) Pulse Ox O2 Delivery O2 Flow Rate FiO2 11/04/19 11:09 98.2 64 18 134/80 (98) 95 Room Air 98.2 Weight Weight [ ] Input and Output Intake and Output Intake and Output 11/04/19 07:00 Intake Total 1400 ml Output Total 3200 ml Balance -1800 ml IV Total 1400 ml Output Urine Total 3200 ml # Voids 3 Microbiology Micro Microbiology 10/30/19 Urine Culture - Preliminary, Resulted 10/30/19 Urine Culture Result 1 (PRIMITIVO) - Preliminary, Resulted 10/30/19 Blood Culture - Preliminary, Resulted 10/30/19 Blood Culture Result 1 (PRIMITIVO) - Preliminary, Resulted Physical Exam HEENT: Neck Supple W Full Motion Chest: Symmetric LUNGS: Clear to Auscultation Heart: S1S2, RRR Abdomen: Soft N/T Extremities: No Edema Neurology: alert, oriented, follow commands Assessment Assessment 1. Fall, generalized weakness. Reportedly down for > 24 hrs 2. THAD; improved 3. Hypernatremia, hypokalemia; resolved 4. Stage 4 Colon CA with mets to lungs and liver treated with chemotherapy. Follows at . 5. Superior right frontal lobe edema. MRI with evidence of brain metastasis. [facility] following. Radiation oncology to see 6. Hypertensive urgency; off Ministerio, BP labile 7. Mild trop elevation; peak 0.166. most probable type II, demand ischemia; multiple culprits noted above. Recent echo with preserved LV systolic function. CP free. 8. H/o DVT on Xarelto 9. Low-grade fevers, bacteremia 10. 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 Arrhythmia; had one episode of 12-beat NSVT on tele. Mg WNL. No further arrhythmias noted on tele overnight. Recommendations Add hydralazine for better BP control Keep Mg > 2.0 and K > 4.0 Supportive care from a CV standpoint. Antibiotic therapy as per ID Follow major hospital recs Plan for conservative measures CV de jesus, given advanced metastatic disease. May discharge from a CV standpoint DOE YE MD 11/04/19 1646: CARDIO Progress Notes Assessment Assessment Patient seen and evaluated I agree with our nurse practitioners assessment and plan. THAD; improved Stage 4 Colon CA with mets to lungs and liver treated with chemotherapy. Follows at [facility]. Hypertensive urgency; BP improved Mild trop elevation; peak 0.166. most probable type II, demand ischemia; multiple culprits noted above. Recent echo with preserved LV systolic function. CP free. Arrhythmia; had one episode of 12-beat NSVT on tele. Mg WNL. No further arrhythmias noted on tele overnight. Normal LV systolic function. COLLEEN GOMEZ APRN November 04, 2019 11:30 DOE YE MD November 04, 2019 16:46
--- NOTE | 2019-11-04 11:43 | NUR ---
[facility] following. Discussed with RN and Dr. Rothman. [facility] advised pt has 30 calendar days of SNU with his insurance. [facility] cannot accept pt if he is going to need Daptomycin at discharge. Dr. Rothman is still waiting on cultures to determine IV abx at discharge. [facility] will continue to follow.
--- NOTE | 2019-11-04 14:00 | NUR ---
Pt transferred to rm [id number]; Report given to TANNER Rojas.
--- NOTE | 2019-11-04 14:04 | PDOC ---
PROGRESS NOTES Assessment Problems Medical Problems: (1) [id number] kidney injury Status: Acute (2) Cerebral mass Status: Acute (3) Elevated troponin I level Status: Acute (4) Hypokalemia Status: Acute (5) Left-sided weakness Status: Acute Large area of edema in the superior right frontal lobe, metastatic colon cancer, MRI brain, CT body reviewed, see below Osteoarthritis or rotator cuff problems in both shoulders COVID19 negative. Medical issues include acute kidney injury, elevated troponin, hypokalemia, colon cancer, metastatic, chronic abdominal wound Plan Note plans for palliative radiotherapy to the 2 intracranial lesions in the right frontal lobe. Neurosurgery has seen, not a good surgical candidate Dexamethasone, taper per radiation oncology Rehabilitation modalities Subjective no complaints Objective Vital Signs Date Time Temp Pulse Resp B/P (MAP) Pulse Ox O2 Delivery O2 Flow Rate FiO2 11/04/19 11:09 98.2 64 18 134/80 (98) 95 Room Air 98.2 Intake and Output 11/04/19 07:00 Intake Total 1400 ml Output Total 3200 ml Balance -1800 ml IV Total 1400 ml Output Urine Total 3200 ml # Voids 3 PHYSICAL EXAM Alert. Oriented to time, place and person. PERRL. EOMI. CN: Slight left central facial weakness. Muscle tone: normal. Muscle strength: Limited range of motion of shoulders bilaterally, also left pronator drift, otherwise 5/5 strength with normal tone and bulk DTR: 2+ Plantar reflex: Flexor Gait: not examined in bed. Sensory exam: no abnormal findings. No cerebellar signs elicited. Review of Relevant I have reviewed the following items renetta (where applicable) has been applied. Labs Laboratory Tests Test 11/03/19 03:00 Sodium Level 146 mmol/L (136-145) Potassium Level 3.5 mmol/L (3.5-5.1) Chloride Level 111 mmol/L (98-107) Carbon Dioxide Level 27 mmol/L (21-32) Anion Gap 8 (6-14) Blood Urea Nitrogen 37 mg/dL (8-26) Creatinine 1.3 mg/dL (0.7-1.3) Estimated GFR (Cockcroft-Gault) 55.2 BUN/Creatinine Ratio 28 (6-20) Glucose Level 269 mg/dL (70-99) Calcium Level 8.5 mg/dL (8.5-10.1) Total Bilirubin 0.2 mg/dL (0.2-1.0) Aspartate Amino Transf (AST/SGOT) 37 U/L (15-37) Alanine Aminotransferase (ALT/SGPT) 51 U/L (16-63) Alkaline Phosphatase 152 U/L (46-116) Total Protein 5.6 g/dL (6.4-8.2) Albumin 2.1 g/dL (3.4-5.0) Albumin/Globulin Ratio 0.6 (1.0-1.7) Microbiology 10/30/19 Urine Culture - Final, Complete 10/30/19 Urine Culture Result 1 (PRIMITIVO) - Final, Complete 10/30/19 Antimicrobic Susceptibility - Final, Complete 10/30/19 Blood Culture - Preliminary, Resulted 10/30/19 Blood Culture Result 1 (PRIMITIVO) - Preliminary, Resulted Medications Current Medications Sodium Chloride 1,000 ml @ 2,000 mls/hr 1X ONCE IV Last administered on 10/30/19at 18:13; Start 10/30/19 at 17:30; Stop 10/30/19 at 17:59; Status DC Potassium Chloride/Water 100 ml @ 50 mls/hr 1X ONCE IV Last administered on 10/30/19at 18:20; Start 10/30/19 at 18:30; Stop 10/30/19 at 20:29; Status DC Fentanyl Citrate (Fentanyl 2ml Vial) 50 mcg 1X ONCE IVP Last administered on 10/30/19at 18:41; Start 10/30/19 at 18:30; Stop 10/30/19 at 18:39; Status DC Fentanyl Citrate (Fentanyl 2ml Vial) 100 mcg STK-MED ONCE .ROUTE ; Start 10/30/19 at 18:39; Stop 10/30/19 at 18:40; Status DC Sodium Chloride (Normal Saline Flush) 3 ml QSHIFT PRN IV AFTER MEDS AND BLOOD DRAWS; Start 10/30/19 at 19:15 Sodium Chloride 1,000 ml @ 999 mls/hr Q1H1M STAT IV Last administered on 10/30/19at 19:42; Start 10/30/19 at 19:06; Stop 10/30/19 at 20:06; Status DC Labetalol HCl (Normodyne Iv Push) 10 mg 1X ONCE IVP Last administered on 10/30/19at 19:55; Start 10/30/19 at 20:00; Stop 10/30/19 at 20:01; Status DC Dexamethasone Sodium Phosphate (Decadron) 10 mg 1X ONCE IV Last administered on 10/30/19at 20:12; Start 10/30/19 at 20:15; Stop 10/30/19 at 20:16; Status DC Ondansetron HCl (Zofran) 4 mg PRN Q8HRS PRN IV NAUSEA/VOMITING; Start 10/30/19 at 20:30; Stop 10/31/19 at 20:29; Status DC Morphine Sulfate (Morphine Sulfate) 2 mg PRN Q2HR PRN IV PAIN; Start 10/30/19 at 20:30; Stop 10/31/19 at 20:29; Status DC Sodium Chloride 1,000 ml @ 125 mls/hr Q8H IV Last administered on 10/30/19at 23:08; Start 10/30/19 at 20:19; Stop 10/31/19 at 10:06; Status DC Acetaminophen (Tylenol) 650 mg PRN Q4HRS PRN PO FEVER > 100.3'F; Start 10/30/19 at 20:30; Stop 10/31/19 at 20:29; Status DC Dexamethasone Sodium Phosphate (Decadron) 4 mg Q6H IV ; Start 10/30/19 at 20:30; Stop 10/30/19 at 22:55; Status DC Dexamethasone Sodium Phosphate (Decadron) 4 mg Q6H IV Last administered on 11/04/19at 13:20; Start 10/30/19 at 22:55 Nicardipine HCl 50 mg/Sodium Chloride 250 ml @ 25 mls/hr CONT PRN IV SEE I/O RECORD Last administered on 11/01/19at 07:39; Start 10/31/19 at 00:45 Clonidine HCl (Catapres Tts-2) 1 patch 1X ONCE TD Last administered on 10/31/19at 01:31; Start 10/31/19 at 01:15; Stop 10/31/19 at 01:16; Status DC Metoprolol Tartrate (Lopressor) 25 mg BID PO Last administered on 11/01/19at 08:53; Start 10/31/19 at 10:00; Stop 11/01/19 at 11:09; Status DC Sodium Chloride 1,000 ml @ 100 mls/hr Q10H IV Last administered on 10/31/19 11:00; Start 10/31/19 at 11:00; Stop 10/31/19 at 13:01; Status DC Potassium Chloride/Sodium Chloride 1,000 ml @ 75 mls/hr [id number] IV Last administered on 11/04/19at 10:43; Start 10/31/19 at 13:00 Hydralazine HCl (Apresoline Inj) 10 mg PRN Q4HRS PRN IVP ELEVATED BP, SEE COMMENTS Last administered on 10/31/19at 20:21; Start 10/31/19 at 14:30 Daptomycin 440 mg/ Sodium Chloride 50 ml @ 100 mls/hr ONCE ONCE IV Last a dministered on 10/31/19at 21:47; Start 10/31/19 at 21:30; Stop 10/31/19 at 22:00; Status DC Potassium Chloride (Klor-Con) 40 meq 1X ONCE PO Last administered on 11/01/19at 08:53; Start 11/01/19 at 08:45; Stop 11/01/19 at 08:46; Status DC Potassium Chloride (Klor-Con) 40 meq 1X ONCE PO Last administered on 11/01/19at 11:49; Start 11/01/19 at 11:00; Stop 11/01/19 at 11:01; Status DC Potassium Chloride (Klor-Con) 40 meq 1X ONCE PO Last administered on 11/01/19at 13:58; Start 11/01/19 at 13:00; Stop 11/01/19 at 13:01; Status DC Daptomycin 450 mg/ Sodium Chloride 50 ml @ 100 mls/hr Q24H IV Last administered on 11/03/19at 23:33; Start 11/01/19 at 21:30 Ampicillin Sodium 2 gm/Sodium Chloride 100 ml @ 200 mls/hr Q4HRS IV Last administered on 11/03/19at 04:20; Start 11/01/19 at 12:00; Stop 11/03/19 at 09:33; Status DC Linezolid/Dextrose 300 ml @ 300 mls/hr Q12HR IV Last administered on 11/04/19at 10:43; Start 11/01/19 at 10:00 Amlodipine Besylate (Norvasc) 10 mg DAILY PO Last administered on 11/04/19 10:41; Start 11/01/19 at 12:00 Hydrochlorothiazide (Hydrodiuril) 25 mg DAILY PO Last administered on 11/04/19 10:42; Start 11/01/19 at 12:00 Metoprolol Tartrate (Lopressor) 100 mg BID PO Last administered on 11/04/19 10:42; Start 11/01/19 at 21:00 Losartan Potassium (Cozaar) 100 mg DAILY PO Last administered on 11/04/19 10:42; Start 11/01/19 at 12:00 Metoprolol Tartrate (Lopressor) 25 mg 1X ONCE PO Last administered on 11/01/19 11:50; Start 11/01/19 at 11:15; Stop 11/01/19 at 11:16; Status DC Metoprolol Tartrate (Lopressor) 50 mg 1X ONCE PO Last administered on 11/01/19at 11:48; Start 11/01/19 at 11:15; Stop 11/01/19 at 11:16; Status DC Acetaminophen (Tylenol) 650 mg PRN Q6HRS PRN PO MILD PAIN / TEMP > 100.3'F; Start 11/01/19 at 14:30 Multivitamins (Thera M Plus) 1 tab HS PO Last administered on 11/03/19 23:00; Start 11/01/19 at 21:00 Ascorbic Acid (Vitamin C) 500 mg HS PO Last administered on 11/03/19at 23:00; Start 11/01/19 at 21:00 Gadoterate Meglumine (Dotarem) 16 ml 1X ONCE IVP Last administered on 11/02/19at 16:39; Start 11/02/19 at 16:15; Stop 11/02/19 at 16:20; Status DC Piperacillin Sod/ Tazobactam Sod (Zosyn Per Pharmacy) 1 each PRN DAILY PRN MC SEE COMMENTS; Start 11/03/19 at 09:45 Piperacillin Sod/ Tazobactam Sod 3.375 gm/Sodium Chloride 50 ml @ 100 mls/hr Q6HRS IV Last administered on 11/04/19 13:20; Start 11/03/19 at 12:00 Potassium Chloride (Klor-Con) 20 meq 1X ONCE PO Last administered on 5/6/20at 15:03; Start 11/03/19 at 14:45; Stop 11/03/19 at 14:49; Status DC Hydralazine HCl (Apresoline) 50 mg BID PO ; Start 11/04/19 at 14:00 Active Scripts Active Reported Magnesium (Magnesium Oxide) 400 Mg Capsule 400 Mg PO BID Hydrochlorothiazide 25 Mg Tablet 25 Mg PO DAILY Klor-Con 10 (Potassium Chloride) 10 Meq Tablet.er 10 Mcg PO TID Losartan Potassium 100 Mg Tablet 30 Mg PO DAILY Amlodipine Besylate 10 Mg Tablet 10 Mg PO DAILY Metoprolol Tartrate 50 Mg Tablet 100 Mg PO BID Xarelto (Rivaroxaban) 20 Mg Tablet 20 Mg PO DAILY Vitals/I & O Vital Sign - Last 24 Hours 11/03/19 11/03/19 11/03/19 11/03/19 15:00 19:20 20:15 22:56 Temp 98.0 98.1 98.3 98.0 98.1 98.3 Pulse 77 76 72 Resp 18 18 18 B/P (MAP) 154/77 (102) 144/73 (96) 157/77 (103) Pulse Ox 93 94 95 O2 Delivery Room Air Room Air Room Air Room Air 11/03/19 11/04/19 11/04/19 11/04/19 23:01 03:02 07:15 08:00 Temp 98.2 98.2 98.2 98.2 Pulse 76 77 63 Resp 18 20 B/P (MAP) 144/73 149/69 (95) 174/82 (112) Pulse Ox 93 96 O2 Delivery Room Air Room Air Room Air 11/04/19 11/04/19 11/04/19 11/04/19 10:41 10:42 10:42 11:09 Temp 98.2 98.2 Pulse 63 63 63 64 Resp 18 B/P (MAP) 174/82 174/82 174/82 134/80 (98) Pulse Ox 95 O2 Delivery Room Air Intake and Output 11/03/19 11/03/19 11/04/19 15:00 23:00 07:00 Intake Total 1350 ml 50 ml Output Total 1100 ml 2100 ml Balance 250 ml 50 ml -2100 ml MITCH WISDOM MD November 04, 2019 14:04
[2019-11-04 15:14] VITALS: BP 141/77
[2019-11-04 19:21] VITALS: BP 150/77
[2019-11-04] MEDS: ASCORBIC ACID 500 MG TABLET PO SCH (21:24)
[2019-11-04] MEDS: MULTIVITAMIN with MINERAL TABLET. PO SCH (21:25)
[2019-11-04] MEDS: DAPTOmycin (GENERIC) IVPB 450 MG in IV NORMAL SALINE 50ML 50 ML IV SCH (21:30)
[2019-11-04 22:20] VITALS: BP 147/75
[2019-11-05] MEDS: DEXAMETHASONE SOD PHOS 4 MG/ML VIAL IV SCH ×5 (00:03→23:32)
[2019-11-05] MEDS: PIPERACILLIN/TAZOBACTAM 3.375 GM in IV NORMAL SALINE 50ML 50 ML IV SCH ×5 (00:03→23:33)
[2019-11-05 03:01] VITALS: BP 168/85
[2019-11-05 05:03] LABS: CALCIUM 8.2 mg/dL (8.5-10.1); CREATININE 1.1 mg/dL (0.7-1.3); POTASSIUM 3.7 mmol/L (3.5-5.1)
[2019-11-05 07:00] VITALS: BP 184/94
[2019-11-05] MEDS: hydroCHLOROthiazide 25 MG TABLET PO SCH (07:42)
[2019-11-05] MEDS: METOPROLOL TART IMMED RELEASE 50 MG TABLET. PO SCH ×2 (07:43→21:45)
[2019-11-05] MEDS: LOSARTAN POTASSIUM 50 MG TABLET. PO SCH (07:43)
[2019-11-05] MEDS: amLODIPine BESYLATE 10 MG TABLET PO SCH (07:44)
--- NOTE | 2019-11-05 09:01 | PDOC ---
PROGRESS NOTES Assessment Problems Medical Problems: (1) [id number] kidney injury Status: Acute (2) Cerebral mass Status: Acute (3) Elevated troponin I level Status: Acute (4) Hypokalemia Status: Acute (5) Left-sided weakness Status: Acute Large area of edema in the superior right frontal lobe, metastatic colon cancer, MRI brain, CT body reviewed Osteoarthritis or rotator cuff problems in both shoulders COVID19 negative. Medical issues include acute kidney injury, elevated troponin, hypokalemia, colon cancer, metastatic, chronic abdominal wound Plan Palliative radiotherapy to the 2 intracranial lesions in the right frontal lobe. Neurosurgery has seen, not a good surgical candidate Dexamethasone, taper per radiation oncology Rehabilitation modalities Subjective No complaints Objective Vital Signs Date Time Temp Pulse Resp B/P (MAP) Pulse Ox O2 Delivery O2 Flow Rate FiO2 11/05/19 07:44 67 184/94 11/05/19 07:00 97.7 16 98 Room Air 97.7 Intake and Output 11/05/19 06:59 Intake Total 1730 ml Output Total 2300 ml Balance -570 ml Intake Oral 1380 ml IV Total 350 ml Output Urine Total 1900 ml Stool Total 400 ml # Voids 1 # Bowel Movements 1 PHYSICAL EXAM Alert. Oriented to time, place and person. PERRL. EOMI. CN: Slight left central facial weakness. Muscle tone: normal. Muscle strength: Limited range of motion of shoulders bilaterally, no longer has left pronator drift, otherwise / DTR: 2+ Plantar reflex: Flexor Gait: not examined in bed. Sensory exam: no abnormal findings. No cerebellar signs elicited. Review of Relevant I have reviewed the following items renetta (where applicable) has been applied. Labs Laboratory Tests Test 11/05/19 04:00 Sodium Level 133 mmol/L (136-145) Potassium Level 3.7 mmol/L (3.5-5.1) Chloride Level 102 mmol/L (98-107) Carbon Dioxide Level 22 mmol/L (21-32) Anion Gap 9 (6-14) Blood Urea Nitrogen 30 mg/dL (8-26) Creatinine 1.1 mg/dL (0.7-1.3) Estimated GFR (Cockcroft-Gault) 67.0 Glucose Level 175 mg/dL (70-99) Calcium Level 8.2 mg/dL (8.5-10.1) Laboratory Tests Test 11/05/19 04:00 Sodium Level 133 mmol/L (136-145) Potassium Level 3.7 mmol/L (3.5-5.1) Chloride Level 102 mmol/L (98-107) Carbon Dioxide Level 22 mmol/L (21-32) Anion Gap 9 (6-14) Blood Urea Nitrogen 30 mg/dL (8-26) Creatinine 1.1 mg/dL (0.7-1.3) Estimated GFR (Cockcroft-Gault) 67.0 Glucose Level 175 mg/dL (70-99) Calcium Level 8.2 mg/dL (8.5-10.1) Microbiology 10/30/19 Urine Culture - Final, Complete 10/30/19 Urine Culture Result 1 (PRIMITIVO) - Final, Complete 10/30/19 Antimicrobic Susceptibility - Final, Complete 10/30/19 Blood Culture - Final, Complete 10/30/19 Blood Culture Result 1 (PRIMITIVO) - Final, Complete 10/30/19 Antimicrobic Susceptibility - Final, Complete Medications Current Medications Sodium Chloride 1,000 ml @ 2,000 mls/hr 1X ONCE IV Last administered on 10/30/19at 18:13; Start 10/30/19 at 17:30; Stop 10/30/19 at 17:59; Status DC Potassium Chloride/Water 100 ml @ 50 mls/hr 1X ONCE IV Last administered on 10/30/19at 18:20; Start 10/30/19 at 18:30; Stop 10/30/19 at 20:29; Status DC Fentanyl Citrate (Fentanyl 2ml Vial) 50 mcg 1X ONCE IVP Last administered on 10/30/19at 18:41; Start 10/30/19 at 18:30; Stop 10/30/19 at 18:39; Status DC Fentanyl Citrate (Fentanyl 2ml Vial) 100 mcg STK-MED ONCE .ROUTE ; Start 10/30/19 at 18:39; Stop 10/30/19 at 18:40; Status DC Sodium Chloride (Normal Saline Flush) 3 ml QSHIFT PRN IV AFTER MEDS AND BLOOD DRAWS; Start 10/30/19 at 19:15 Sodium Chloride 1,000 ml @ 999 mls/hr Q1H1M STAT IV Last administered on 10/30/19at 19:42; Start 10/30/19 at 19:06; Stop 5/2/20 at 20:06; Status DC Labetalol HCl (Normodyne Iv Push) 10 mg 1X ONCE IVP Last administered on 10/30/19at 19:55; Start 10/30/19 at 20:00; Stop 10/30/19 at 20:01; Status DC Dexamethasone Sodium Phosphate (Decadron) 10 mg 1X ONCE IV Last administered on 10/30/19at 20:12; Start 10/30/19 at 20:15; Stop 10/30/19 at 20:16; Status DC Ondansetron HCl (Zofran) 4 mg PRN Q8HRS PRN IV NAUSEA/VOMITING; Start 10/30/19 at 20:30; Stop 10/31/19 at 20:29; Status DC Morphine Sulfate (Morphine Sulfate) 2 mg PRN Q2HR PRN IV PAIN; Start 10/30/19 at 20:30; Stop 10/31/19 at 20:29; Status DC Sodium Chloride 1,000 ml @ 125 mls/hr Q8H IV Last administered on 10/30/19at 23:08; Start 10/30/19 at 20:19; Stop 10/31/19 at 10:06; Status DC Acetaminophen (Tylenol) 650 mg PRN Q4HRS PRN PO FEVER > 100.3'F; Start 10/30/19 at 20:30; Stop 10/31/19 at 20:29; Status DC Dexamethasone Sodium Phosphate (Decadron) 4 mg Q6H IV ; Start 10/30/19 at 20:30; Stop 10/30/19 at 22:55; Status DC Dexamethasone Sodium Phosphate (Decadron) 4 mg Q6H IV Last administered on 11/05/19at 06:10; Start 10/30/19 at 22:55 Nicardipine HCl 50 mg/Sodium Chloride 250 ml @ 25 mls/hr CONT PRN IV SEE I/O RECORD Last administered on 11/01/19at 07:39; Start 10/31/19 at 00:45 Clonidine HCl (Catapres Tts-2) 1 patch 1X ONCE TD Last administered on 10/31/19at 01:31; Start 10/31/19 at 01:15; Stop 10/31/19 at 01:16; Status DC Metoprolol Tartrate (Lopressor) 25 mg BID PO Last administered on 11/01/19at 08:53; Start 10/31/19 at 10:00; Stop 11/01/19 at 11:09; Status DC Sodium Chloride 1,000 ml @ 100 mls/hr Q10H IV Last administered on 10/31/19at 11:00; Start 10/31/19 at 11:00; Stop 10/31/19 at 13:01; Status DC Potassium Chloride/Sodium Chloride 1,000 ml @ 75 mls/hr [id number] IV Last administered on 11/04/19at 18:19; Start 10/31/19 at 13:00 Hydralazine HCl (Apresoline Inj) 10 mg PRN Q4HRS PRN IVP ELEVATED BP, SEE COMMENTS Last administered on 10/31/19at 20:21; Start 10/31/19 at 14:30 Daptomycin 440 mg/ Sodium Chloride 50 ml @ 100 mls/hr ONCE ONCE IV Last administered on 10/31/19at 21:47; Start 10/31/19 at 21:30; Stop 10/31/19 at 22:00; Status DC Potassium Chloride (Klor-Con) 40 meq 1X ONCE PO Last administered on 11/01/19 08:53; Start 11/01/19 at 08:45; Stop 11/01/19 at 08:46; Status DC Potassium Chloride (Klor-Con) 40 meq 1X ONCE PO Last administered on 11/01/19at 11:49; Start 11/01/19 at 11:00; Stop 11/01/19 at 11:01; Status DC Potassium Chloride (Klor-Con) 40 meq 1X ONCE PO Last administered on 11/01/19at 13:58; Start 11/01/19 at 13:00; Stop 11/01/19 at 13:01; Status DC Daptomycin 450 mg/ Sodium Chloride 50 ml @ 100 mls/hr Q24H IV Last administered on 11/04/19 21:30; Start 11/01/19 at 21:30 Ampicillin Sodium 2 gm/Sodium Chloride 100 ml @ 200 mls/hr Q4HRS IV Last administered on 11/03/19at 04:20; Start 11/01/19 at 12:00; Stop 11/03/19 at 09:33; Status DC Linezolid/Dextrose 300 ml @ 300 mls/hr Q12HR IV Last administered on 11/05/19 07:45; Start 11/01/19 at 10:00 Amlodipine Besylate (Norvasc) 10 mg DAILY PO Last administered on 11/05/19 07:44; Start 11/01/19 at 12:00 Hydrochlorothiazide (Hydrodiuril) 25 mg DAILY PO Last administered on 11/05/19 07:42; Start 11/01/19 at 12:00 Metoprolol Tartrate (Lopressor) 100 mg BID PO Last administered on 11/05/19 07:43; Start 11/01/19 at 21:00 Losartan Potassium (Cozaar) 100 mg DAILY PO Last administered on 11/05/19 07:43; Start 11/01/19 at 12:00 Metoprolol Tartrate (Lopressor) 25 mg 1X ONCE PO Last administered on 11/01/19 11:50; Start 11/01/19 at 11:15; Stop 11/01/19 at 11:16; Status DC Metoprolol Tartrate (Lopressor) 50 mg 1X ONCE PO Last administered on 11/01/19at 11:48; Start 11/01/19 at 11:15; Stop 11/01/19 at 11:16; Status DC Acetaminophen (Tylenol) 650 mg PRN Q6HRS PRN PO MILD PAIN / TEMP > 100.3'F; Start 11/01/19 at 14:30 Multivitamins (Thera M Plus) 1 tab HS PO Last administered on 11/04/19 21:25; Start 11/01/19 at 21:00 Ascorbic Acid (Vitamin C) 500 mg HS PO Last administered on 11/04/19at 21:24; Start 11/01/19 at 21:00 Gadoterate Meglumine (Dotarem) 16 ml 1X ONCE IVP Last administered on 11/02/19at 16:39; Start 11/02/19 at 16:15; Stop 11/02/19 at 16:20; Status DC Piperacillin Sod/ Tazobactam Sod (Zosyn Per Pharmacy) 1 each PRN DAILY PRN MC SEE COMMENTS; Start 11/03/19 at 09:45 Piperacillin Sod/ Tazobactam Sod 3.375 gm/Sodium Chloride 50 ml @ 100 mls/hr Q6HRS IV Last administered on 11/05/19at 06:11; Start 11/03/19 at 12:00 Potassium Chloride (Klor-Con) 20 meq 1X ONCE PO Last administered on 11/03/19at 15:03; Start 11/03/19 at 14:45; Stop 11/03/19 at 14:49; Status DC Hydralazine HCl (Apresoline) 50 mg BID PO Last administered on 11/05/19at 07:44; Start 11/04/19 at 14:00 Active Scripts Active Reported Magnesium (Magnesium Oxide) 400 Mg Capsule 400 Mg PO BID Hydrochlorothiazide 25 Mg Tablet 25 Mg PO DAILY Klor-Con 10 (Potassium Chloride) 10 Meq Tablet.er 10 Mcg PO TID Losartan Potassium 100 Mg Tablet 30 Mg PO DAILY Amlodipine Besylate 10 Mg Tablet 10 Mg PO DAILY Metoprolol Tartrate 50 Mg Tablet 100 Mg PO BID Xarelto (Rivaroxaban) 20 Mg Tablet 20 Mg PO DAILY Vitals/I & O Vital Sign - Last 24 Hours 11/04/19 11/04/19 11/04/19 11/04/19 10:41 10:42 10:42 11:09 Temp 98.2 98.2 Pulse 63 63 63 64 Resp 18 B/P (MAP) 174/82 174/82 174/82 134/80 (98) Pulse Ox 95 O2 Delivery Room Air 11/04/19 11/04/19 11/04/19 11/04/19 15:14 18:16 19:21 20:00 Temp 97.4 98.4 97.4 98.4 Pulse 70 71 79 Resp 18 14 B/P (MAP) 141/77 (98) 147/74 150/77 (101) Pulse Ox 97 97 O2 Delivery Room Air Room Air Room Air 11/04/19 11/04/19 11/04/19 11/05/19 21:24 21:25 22:20 03:01 Temp 97.6 98.5 97.6 98.5 Pulse 79 79 64 56 Resp 18 16 B/P (MAP) 150/77 150/77 147/75 (99) 168/85 (112) Pulse Ox 96 96 O2 Delivery Room Air Room Air 11/05/19 11/05/19 11/05/19 11/05/19 07:00 07:43 07:43 07:44 Temp 97.7 97.7 Pulse 67 67 67 67 Resp 16 B/P (MAP) 184/94 (124) 184/94 184/94 184/94 Pulse Ox 98 O2 Delivery Room Air 11/05/19 07:44 Pulse 67 B/P (MAP) 184/94 Intake and Output 11/04/19 11/04/19 11/05/19 14:59 22:59 06:59 Intake Total 780 ml 250 ml 700 ml Output Total 475 ml 1825 ml Balance 780 ml -225 ml -1125 ml MITCH WISDOM MD November 05, 2019 09:01
--- NOTE | 2019-11-05 09:04 | PDOC ---
SUBJECTIVE Subjective i see plans for rad/onc here i will let his primary oncologist know chemo on hold for now, f/u w/ Dr Haji upon d/c and steroids per rad/onc thank you kindly, nesha linda md OBJECTIVE Vital Signs Vital Signs Date Time Temp Pulse Resp B/P (MAP) Pulse Ox O2 Delivery O2 Flow Rate FiO2 11/05/19 07:44 67 184/94 11/05/19 07:44 67 184/94 11/05/19 07:43 67 184/94 11/05/19 07:43 67 184/94 11/05/19 07:00 97.7 67 16 184/94 (124) 98 Room Air 97.7 11/05/19 03:01 98.5 56 16 168/85 (112) 96 Room Air 98.5 11/04/19 22:20 97.6 64 18 147/75 (99) 96 Room Air 97.6 11/04/19 21:25 79 150/77 11/04/19 21:24 79 150/77 11/04/19 20:00 Room Air 11/04/19 19:21 98.4 79 14 150/77 (101) 97 Room Air 98.4 11/04/19 18:16 71 147/74 11/04/19 15:14 97.4 70 18 141/77 (98) 97 Room Air 97.4 11/04/19 11:09 98.2 64 18 134/80 (98) 95 Room Air 98.2 11/04/19 10:42 63 174/82 11/04/19 10:42 63 174/82 11/04/19 10:41 63 174/82 I & O Intake and Output 11/05/19 07:00 Intake Total 1730 ml Output Total 2300 ml Balance -570 ml Intake Oral 1380 ml IV Total 350 ml Output Urine Total 1900 ml Stool Total 400 ml # Voids 1 # Bowel Movements 1 COMMENT Lab Laboratory Tests Test 11/05/19 04:00 Sodium Level 133 mmol/L (136-145) Potassium Level 3.7 mmol/L (3.5-5.1) Chloride Level 102 mmol/L (98-107) Carbon Dioxide Level 22 mmol/L (21-32) Anion Gap 9 (6-14) Blood Urea Nitrogen 30 mg/dL (8-26) Creatinine 1.1 mg/dL (0.7-1.3) Estimated GFR (Cockcroft-Gault) 67.0 Glucose Level 175 mg/dL (70-99) Calcium Level 8.2 mg/dL (8.5-10.1) LEODAN LINDA MD November 05, 2019 09:04
--- NOTE | 2019-11-05 10:10 | PDOC ---
Infectious Disease Note Subjective Subjective Denies SPARKS or visual change. No F/C/S/N/V/SOA/rash/weakness Urinating ok ROS ROS o/w neg Vital Sign Vital Signs Vital Signs Date Time Temp Pulse Resp B/P (MAP) Pulse Ox O2 Delivery O2 Flow Rate FiO2 11/05/19 07:44 67 184/94 11/05/19 07:00 97.7 16 98 Room Air 97.7 Physical Exam PHYSICAL EXAM CONSTITUTIONAL: He is lying side of bed. He is cooperative. He is in no acute distress. HEENT: Pupils are equal. EOMI He has normal conjunctivae. Oral cavity, pharynx is clear, but he has questionable dentition. NECK: Supple, no JVD. LUNGS: Clear to auscultation. HEART: S1, S2. ABDOMEN: Soft and nontender. No guarding. Positive bowel sounds. Ostomy without signs of any complications. Abdominal wound without signs of gross infection or some scabbed areas. EXTREMITIES: No clubbing, cyanosis or gross edema. GENITOURINARY: Prather is out SKIN: Warm to touch without signs of rash. NEUROLOGIC: He is alert, answering questions appropriately. PSYCHIATRIC: Affect is appropriate. Labs Lab Laboratory Tests Test 11/05/19 04:00 Sodium Level 133 mmol/L (136-145) Potassium Level 3.7 mmol/L (3.5-5.1) Chloride Level 102 mmol/L (98-107) Carbon Dioxide Level 22 mmol/L (21-32) Anion Gap 9 (6-14) Blood Urea Nitrogen 30 mg/dL (8-26) Creatinine 1.1 mg/dL (0.7-1.3) Estimated GFR (Cockcroft-Gault) 67.0 Glucose Level 175 mg/dL (70-99) Calcium Level 8.2 mg/dL (8.5-10.1) Micro BLD CULT RESULT 1 Final Enterococcus faecalis ANTIMICROBIAL SUSCEPTIBILITY Final Comment S = Susceptible; I = Intermediate; R = Resistant P = Positive; N = Negative MICS are expressed in micrograms per mL Antibiotic RSLT#1 RSLT#2 RSLT#3 RSLT#4 Ciprofloxacin S<=0.5 Levofloxacin S =0.5 Penicillin S =1 Tetracycline R>=16 Vancomycin S =2 URINE CULTURE Final Final report URINE CULTURE RES 1 Final Comment Enterobacter cloacae complex 25,000-50,000 colony forming units per mL ANTIMICROBIAL SUSCEPTIBILITY Final Comment S = Susceptible; I = Intermediate; R = Resistant P = Positive; N = Negative MICS are expressed in micrograms per mL Antibiotic RSLT#1 RSLT#2 RSLT#3 RSLT#4 Amoxicillin/Clavulanic Acid R =R Cefazolin R =8 Cefepime S<=0.12 Cefuroxime R =R Ciprofloxacin S<=0.25 Ertapenem S<=0.12 Gentamicin S<=1 Imipenem S<=0.25 Levofloxacin S<=0.12 Meropenem S<=0.25 Nitrofurantoin I =64 Tetracycline S =2 Tobramycin S<=1 Trimethoprim/Sulfa S<=20 MRI head IMPRESSION: Two enhancing right frontal lobe lesions concerning for metastatic disease, given history of malignancy. Extensive right hemispheric edema with 2 mm right to left midline shift. CT Chest/abd/pel IMPRESSION: Findings are consistent with progression of metastatic disease with new/enlarging thoracic, abdominal and pelvic lymphadenopathy, numerous new lytic lesions as well as parenchymal lung lesions and enlarging left adrenal lesion.. In addition a 2.5 cm nodular mass in the right upper lobe may represent a separate primary malignancy or focus of metastasis. Hypodense lesions within the liver were seen on prior examination although on today's examination measuring greater than simple fluid. Underlying metastatic disease is also suspected however can be confirmed by MRI. No bowel obstruction. Changes of right lower quadrant ostomy. CT 10/29 IMPRESSION: Large area of edema in the superior right frontal lobe ; differential consideration of an underlying intra-axial mass versus edema from cerebritis. Consider MRI with and without IV contrast in further evaluation. Microbiology 10/30/19 Blood Culture - Final, Complete Objective Assessment Bacteremia 1/2 bottles 10/29 Enterococcus PCN sens- s/p Dapto now small GPR also given CT colon mets could be true bacteremia Enterobacter in urine 10/29- prather is out COVID - neg Leukocytosis - on Dexamethasone Large area of edema in the superior right frontal lobe: differential consideration of an underlying intra-axial mass versus edema from cerebritis. Fever better Colon cancer metastatic undergoing chemo at [facility]. 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 Clarke at [facility] - currently does not look infected Poor dentition HTN Hypernatremia H/o THAD H/o Methicillin sensitive Staph aureus bacteremia ba cath removed 08/05/2019 H/o Influenza B Plan Plan of Care Discont Daptomycin - Zyvox Dose cipro for urine D/c'd Ampicillin given GNR in urine and GPR in blood and started zosyn 11/02 will cont and F/u GPR in blood Will need Mid line if PP can't do peripheral IVs Repeat Blood cult today given Enterococcus Palliative brain XRT planned F/u labs in am and cults Electrolytes per primary Wound care consult D/w nursing [place] VALDEZ MD November 05, 2019 10:10
--- NOTE | 2019-11-05 10:17 | PDOC ---
SUBJECTIVE ROS No complaints, eating lunch , No concerns voiced by RN OBJECTIVE Vital Signs Vital Signs Date Time Temp Pulse Resp B/P (MAP) Pulse Ox O2 Delivery O2 Flow Rate FiO2 11/05/19 07:44 67 184/94 11/05/19 07:00 97.7 16 98 Room Air 97.7 I & 0 Intake and Output 11/05/19 06:59 Intake Total 1730 ml Output Total 2300 ml Balance -570 ml Intake Oral 1380 ml IV Total 350 ml Output Urine Total 1900 ml Stool Total 400 ml # Voids 1 # Bowel Movements 1 PHYSICAL EXAM Physical Exam GENERAL: NAD HEENT: Oropharynx moist NECK: Supple. LUNGS: Diminished at bases , nonlabored. HEART: S1, S2 regular. ABDOMEN: Soft, nontender, ostomy +. EXTREMITIES: No gross edema or cyanosis. SKIN: No signs of rash. NEUROLOGIC: Alert and awake, Chronic mild tremors Saravia + DIAGNOSIS/ASSESSMENT Assessment & Plan Acute kidney injury:Suspect ATN 2/2, Improved UA unremarkable, good uop, Supportive care, Avoid nephrotoxins Hx of THAD in Jul 2019 - needing HD , improved Pt was off Dialysis when dc from [facility] in 2019 as well , baseline Cr has been normal Hypernatremia- corrected for glucose >146 Now Hyponatremic, restrict PO water intake, Hold HCTZ if persistent , ? 2/2 malignancy with mets HypoKalemia- replace as indicated Widely metastatic colon cancer undergoing chemotherapy at [facility] Brain metastasis: - Palliative radiotherapy to the 2 intracranial lesions in the right frontal lobe. per Neurosurgery not a good surgical candidate On Dexamethasone, taper per radiation oncology Hx of infected abdominal hernia mesh history of scrotal abscess history of urinary tract infections COVID-19 negative Chronic abdominal wound for which he is followed by Dr. Clarke at [facility] COMMENT/RELEVANT DATA Meds Current Medications Medications (Trade) Dose Ordered Sig/Joseph Start Time Stop Time Status Last Admin Dose Admin Acetaminophen (Tylenol) 650 mg PRN Q6HRS PRN 11/01/19 14:30 Amlodipine Besylate (Norvasc) 10 mg DAILY 11/01/19 12:00 11/05/19 07:44 10 MG Ampicillin Sodium 2 gm/Sodium Chloride 100 ml @ 200 mls/hr Q4HRS 11/01/19 12:00 11/03/19 09:33 DC 11/03/19 04:20 200 MLS/HR Ascorbic Acid (Vitamin C) 500 mg HS 11/01/19 21:00 11/04/19 21:24 500 MG Ciprofloxacin (Cipro) 500 mg BID 11/05/19 10:15 UNV Clonidine HCl (Catapres Tts-2) 1 patch 1X ONCE 10/31/19 01:15 10/31/19 01:16 DC 10/31/19 01:31 1 PATCH Daptomycin 440 mg/ Sodium Chloride 50 ml @ 100 mls/hr ONCE ONCE 10/31/19 21:30 10/31/19 22:00 DC 10/31/19 21:47 100 MLS/HR Daptomycin 450 mg/ Sodium Chloride 50 ml @ 100 mls/hr Q24H 11/01/19 21:30 11/05/19 10:05 DC 11/04/19 21:30 100 MLS/HR Dexamethasone Sodium Phosphate (Decadron) 4 mg Q6H 10/30/19 22:55 11/05/19 06:10 4 MG Fentanyl Citrate (Fentanyl 2ml Vial) 100 mcg STK-MED ONCE 10/30/19 18:39 10/30/19 18:40 DC Gadoterate Meglumine (Dotarem) 16 ml 1X ONCE 11/02/19 16:15 11/02/19 16:20 DC 11/02/19 16:39 16 ML Hydralazine HCl (Apresoline Inj) 10 mg PRN Q4HRS PRN 10/31/19 14:30 10/31/19 20:21 10 MG Hydralazine HCl (Apresoline) 50 mg BID 11/04/19 14:00 11/05/19 07:44 50 MG Hydrochlorothiazide (Hydrodiuril) 25 mg DAILY 11/01/19 12:00 11/05/19 07:42 25 MG Labetalol HCl (Normodyne Iv Push) 10 mg 1X ONCE 10/30/19 20:00 10/30/19 20:01 DC 10/30/19 19:55 10 MG Linezolid/Dextrose 300 ml @ 300 mls/hr Q12HR 11/01/19 10:00 11/05/19 07:45 300 MLS/HR Losartan Potassium (Cozaar) 100 mg DAILY 11/01/19 12:00 11/05/19 07:43 100 MG Metoprolol Tartrate (Lopressor) 50 mg 1X ONCE 11/01/19 11:15 11/01/19 11:16 DC 11/01/19 11:48 50 MG Morphine Sulfate (Morphine Sulfate) 2 mg PRN Q2HR PRN 10/30/19 20:30 10/31/19 20:29 DC Multivitamins (Thera M Plus) 1 tab HS 11/01/19 21:00 11/04/19 21:25 1 TAB Nicardipine HCl 50 mg/Sodium Chloride 250 ml @ 25 mls/hr CONT PRN 10/31/19 00:45 11/01/19 07:39 62.5 MLS/HR Ondansetron HCl (Zofran) 4 mg PRN Q8HRS PRN 10/30/19 20:30 10/31/19 20:29 DC Piperacillin Sod/ Tazobactam Sod (Zosyn Per Pharmacy) 1 each PRN DAILY PRN 11/03/19 09:45 Piperacillin Sod/ Tazobactam Sod 3.375 gm/Sodium Chloride 50 ml @ 100 mls/hr Q6HRS 11/03/19 12:00 11/05/19 06:11 100 MLS/HR Potassium Chloride/Sodium Chloride 1,000 ml @ 75 mls/hr [id number] 10/31/19 13:00 11/04/19 18:19 75 MLS/HR Potassium Chloride/Water 100 ml @ 50 mls/hr 1X ONCE 10/30/19 18:30 10/30/19 20:29 DC 10/30/19 18:20 50 MLS/HR Potassium Chloride (Klor-Con) 20 meq 1X ONCE 11/03/19 14:45 11/03/19 14:49 DC 11/03/19 15:03 20 MEQ Sodium Chloride 1,000 ml @ 100 mls/hr Q10H 10/31/19 11:00 10/31/19 13:01 DC 10/31/19 11:00 100 MLS/HR Sodium Chloride (Normal Saline Flush) 3 ml QSHIFT PRN 10/30/19 19:15 Lab Laboratory Tests Test 11/05/19 04:00 Sodium Level 133 mmol/L (136-145) Potassium Level 3.7 mmol/L (3.5-5.1) Chloride Level 102 mmol/L (98-107) Carbon Dioxide Level 22 mmol/L (21-32) Anion Gap 9 (6-14) Blood Urea Nitrogen 30 mg/dL (8-26) Creatinine 1.1 mg/dL (0.7-1.3) Estimated GFR (Cockcroft-Gault) 67.0 Glucose Level 175 mg/dL (70-99) Calcium Level 8.2 mg/dL (8.5-10.1) Results All relevant outside records, renal labs, imaging studies, telemetry/EKG's were reviewed. EJ RIBEIRO MD November 05, 2019 10:17
[2019-11-05] MEDS: CIPROFLOXACIN HCL 250 MG TABLET. PO SCH ×2 (10:33→21:44)
--- NOTE | 2019-11-05 10:38 | PDOC ---
PROGRESS NOTES Chief Complaint Chief Complaint IMPRESSION Right frontal edema secondary to most likely metastatic disease History of colon cancer Stage 4 Colon CA with mets to lungs and liver treated with chemotherapy. Follows at [facility]. Superior right frontal lobe edema. MRI with evidence of brain metastasis. HemoOnc following. 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 Clarke at [facility] currently seems asymptomatic Hypernatremia secondary to severe dehydration improved Acute renal failure vasomotor etiology most likely improved with hydration Generalized weakness and deconditioning Bacteremia 1 of 2 bottles questionable strep will continue to follow results of culture Leukocytosis most likely secondary to demargination from steroids Acute febrile illness trying to rule out COVID-19 Essential hypertension Plan Follow results of COVID-19 Currently hemodynamically stable Seems to be awake oriented in person time place and situation Supportive measures Further recommendations based on the clinical course He has an MRI of the head and CT of the chest abdomen pelvis pending results of his COVID-19 testing as per protocol 37 MIN PT EXAM, CHART review, > 50% of time spent with exam, chart review, pt care coordination. History of Present Illness History of Present Illness No acute events reported overnight, case discussed with nursing staff patient in no acute distress no complaints during my visit, quite talkative. NO new neurolgical deficits evident. Awaiting for MRI. he can be transferred to a telemetry floor when bed available. Vitals Vitals Vital Signs Date Time Temp Pulse Resp B/P (MAP) Pulse Ox O2 Delivery O2 Flow Rate FiO2 11/05/19 07:45 Room Air 11/05/19 07:44 67 184/94 11/05/19 07:00 97.7 16 98 97.7 Physical Exam Physical Exam CONSTITUTIONAL: He is sitting in chair He is cooperative. He is in no acute distress. HEENT: Pupils are equal. EOMI He has normal conjunctivae. Oral cavity, pharynx is clear, but he has questionable dentition. NECK: Supple, no JVD. LUNGS: Clear to auscultation. HEART: S1, S2. ABDOMEN: Soft and nontender. No guarding. Positive bowel sounds. Ostomy without signs of any complications. Abdominal wound without signs of gross infection or some scabbed areas. EXTREMITIES: No clubbing, cyanosis or gross edema. GENITOURINARY: Saravia is out SKIN: Warm to touch without signs of rash. NEUROLOGIC: He is alert, answering questions appropriately. PSYCHIATRIC: Affect is appropriate. General: Alert, Oriented X3, Cooperative, No acute distress Heart: Regular rate, Normal S1, Normal S2, No murmurs Lungs: Clear Abdomen: Soft (colostomy right lower quadrant) Extremities: No edema Skin: No rashes Labs LABS Laboratory Tests Test 11/05/19 04:00 Sodium Level 133 mmol/L (136-145) Potassium Level 3.7 mmol/L (3.5-5.1) Chloride Level 102 mmol/L (98-107) Carbon Dioxide Level 22 mmol/L (21-32) Anion Gap 9 (6-14) Blood Urea Nitrogen 30 mg/dL (8-26) Creatinine 1.1 mg/dL (0.7-1.3) Estimated GFR (Cockcroft-Gault) 67.0 Glucose Level 175 mg/dL (70-99) Calcium Level 8.2 mg/dL (8.5-10.1) Assessment and Plan Assessmemt and Plan Problems Medical Problems: (1) Sycol-ng-anudmnd kidney injury Status: Acute (2) Cerebral mass Status: Acute (3) Elevated troponin I level Status: Acute (4) Hypokalemia Status: Acute (5) Left-sided weakness Status: Acute Comment Review of Relevant I have reviewed the following items renetta (where applicable) has been applied. Labs Laboratory Tests Test 11/05/19 04:00 Sodium Level 133 mmol/L (136-145) Potassium Level 3.7 mmol/L (3.5-5.1) Chloride Level 102 mmol/L (98-107) Carbon Dioxide Level 22 mmol/L (21-32) Anion Gap 9 (6-14) Blood Urea Nitrogen 30 mg/dL (8-26) Creatinine 1.1 mg/dL (0.7-1.3) Estimated GFR (Cockcroft-Gault) 67.0 Glucose Level 175 mg/dL (70-99) Calcium Level 8.2 mg/dL (8.5-10.1) Laboratory Tests Test 11/05/19 04:00 Sodium Level 133 mmol/L (136-145) Potassium Level 3.7 mmol/L (3.5-5.1) Chloride Level 102 mmol/L (98-107) Carbon Dioxide Level 22 mmol/L (21-32) Anion Gap 9 (6-14) Blood Urea Nitrogen 30 mg/dL (8-26) Creatinine 1.1 mg/dL (0.7-1.3) Estimated GFR (Cockcroft-Gault) 67.0 Glucose Level 175 mg/dL (70-99) Calcium Level 8.2 mg/dL (8.5-10.1) Microbiology 10/30/19 Urine Culture - Final, Complete 10/30/19 Urine Culture Result 1 (PRIMITIVO) - Final, Complete 10/30/19 Antimicrobic Susceptibility - Final, Complete 10/30/19 Blood Culture - Final, Complete 10/30/19 Blood Culture Result 1 (PRIMITIVO) - Final, Complete 10/30/19 Antimicrobic Susceptibility - Final, Complete Medications Current Medications Sodium Chloride 1,000 ml @ 2,000 mls/hr 1X ONCE IV Last administered on 10/30/19at 18:13; Start 10/30/19 at 17:30; Stop 10/30/19 at 17:59; Status DC Potassium Chloride/Water 100 ml @ 50 mls/hr 1X ONCE IV Last administered on 10/30/19at 18:20; Start 10/30/19 at 18:30; Stop 10/30/19 at 20:29; Status DC Fentanyl Citrate (Fentanyl 2ml Vial) 50 mcg 1X ONCE IVP Last administered on 10/30/19at 18:41; Start 10/30/19 at 18:30; Stop 10/30/19 at 18:39; Status DC Fentanyl Citrate (Fentanyl 2ml Vial) 100 mcg STK-MED ONCE .ROUTE ; Start 10/30/19 at 18:39; Stop 10/30/19 at 18:40; Status DC Sodium Chloride (Normal Saline Flush) 3 ml QSHIFT PRN IV AFTER MEDS AND BLOOD DRAWS; Start 10/30/19 at 19:15 Sodium Chloride 1,000 ml @ 999 mls/hr Q1H1M STAT IV Last administered on 10/30/19at 19:42; Start 10/30/19 at 19:06; Stop 10/30/19 at 20:06; Status DC Labetalol HCl (Normodyne Iv Push) 10 mg 1X ONCE IVP Last administered on 10/30/19at 19:55; Start 10/30/19 at 20:00; Stop 10/30/19 at 20:01; Status DC Dexamethasone Sodium Phosphate (Decadron) 10 mg 1X ONCE IV Last administered on 10/30/19at 20:12; Start 10/30/19 at 20:15; Stop 10/30/19 at 20:16; Status DC Ondansetron HCl (Zofran) 4 mg PRN Q8HRS PRN IV NAUSEA/VOMITING; Start 10/30/19 at 20:30; Stop 10/31/19 at 20:29; Status DC Morphine Sulfate (Morphine Sulfate) 2 mg PRN Q2HR PRN IV PAIN; Start 10/30/19 at 20:30; Stop 10/31/19 at 20:29; Status DC Sodium Chloride 1,000 ml @ 125 mls/hr Q8H IV Last administered on 10/30/19at 23:08; Start 10/30/19 at 20:19; Stop 10/31/19 at 10:06; Status DC Acetaminophen (Tylenol) 650 mg PRN Q4HRS PRN PO FEVER > 100.3'F; Start 10/30/19 at 20:30; Stop 10/31/19 at 20:29; Status DC Dexamethasone Sodium Phosphate (Decadron) 4 mg Q6H IV ; Start 10/30/19 at 20:30; Stop 10/30/19 at 22:55; Status DC Dexamethasone Sodium Phosphate (Decadron) 4 mg Q6H IV Last administered on 11/05/19at 06:10; Start 10/30/19 at 22:55 Nicardipine HCl 50 mg/Sodium Chloride 250 ml @ 25 mls/hr CONT PRN IV SEE I/O RECORD Last administered on 11/01/19at 07:39; Start 10/31/19 at 00:45 Clonidine HCl (Catapres Tts-2) 1 patch 1X ONCE TD Last administered on 10/31/19at 01:31; Start 10/31/19 at 01:15; Stop 10/31/19 at 01:16; Status DC Metoprolol Tartrate (Lopressor) 25 mg BID PO Last administered on 11/01/19at 08:53; Start 10/31/19 at 10:00; Stop 11/01/19 at 11:09; Status DC Sodium Chloride 1,000 ml @ 100 mls/hr Q10H IV Last administered on 10/31/19at 11:00; Start 10/31/19 at 11:00; Stop 10/31/19 at 13:01; Status DC Potassium Chloride/Sodium Chloride 1,000 ml @ 75 mls/hr [id number] IV Last administered on 11/04/19at 18:19; Start 10/31/19 at 13:00 Hydralazine HCl (Apresoline Inj) 10 mg PRN Q4HRS PRN IVP ELEVATED BP, SEE COMMENTS Last administered on 10/31/19at 20:21; Start 10/31/19 at 14:30 Daptomycin 440 mg/ Sodium Chloride 50 ml @ 100 mls/hr ONCE ONCE IV Last administered on 10/31/19at 21:47; Start 10/31/19 at 21:30; Stop 10/31/19 at 22:00; Status DC Potassium Chloride (Klor-Con) 40 meq 1X ONCE PO Last administered on 11/01/19at 08:53; Start 11/01/19 at 08:45; Stop 11/01/19 at 08:46; Status DC Potassium Chloride (Klor-Con) 40 meq 1X ONCE PO Last administered on 11/01/19at 11:49; Start 11/01/19 at 11:00; Stop 11/01/19 at 11:01; Status DC Potassium Chloride (Klor-Con) 40 meq 1X ONCE PO Last administered on 11/01/19at 13:58; Start 11/01/19 at 13:00; Stop 11/01/19 at 13:01; Status DC Daptomycin 450 mg/ Sodium Chloride 50 ml @ 100 mls/hr Q24H IV Last administered on 11/04/19at 21:30; Start 11/01/19 at 21:30; Stop 11/05/19 at 10:05; Status DC Ampicillin Sodium 2 gm/Sodium Chloride 100 ml @ 200 mls/hr Q4HRS IV Last administered on 11/03/19at 04:20; Start 11/01/19 at 12:00; Stop 11/03/19 at 09:33; Status DC Linezolid/Dextrose 300 ml @ 300 mls/hr Q12HR IV Last administered on 11/05/19at 07:45; Start 11/01/19 at 10:00; Stop 11/05/19 at 10:07; Status DC Amlodipine Besylate (Norvasc) 10 mg DAILY PO Last administered on 11/05/19 07:44; Start 11/01/19 at 12:00 Hydrochlorothiazide (Hydrodiuril) 25 mg DAILY PO Last administered on 11/05/19 07:42; Start 11/01/19 at 12:00 Metoprolol Tartrate (Lopressor) 100 mg BID PO Last administered on 11/05/19 07:43; Start 11/01/19 at 21:00 Losartan Potassium (Cozaar) 100 mg DAILY PO Last administered on 11/05/19 07:43; Start 11/01/19 at 12:00 Metoprolol Tartrate (Lopressor) 25 mg 1X ONCE PO Last administered on 11/01/19 11:50; Start 11/01/19 at 11:15; Stop 11/01/19 at 11:16; Status DC Metoprolol Tartrate (Lopressor) 50 mg 1X ONCE PO Last administered on 11/01/19at 11:48; Start 11/01/19 at 11:15; Stop 11/01/19 at 11:16; Status DC Acetaminophen (Tylenol) 650 mg PRN Q6HRS PRN PO MILD PAIN / TEMP > 100.3'F; Start 11/01/19 at 14:30 Multivitamins (Thera M Plus) 1 tab HS PO Last administered on 11/04/19 21:25; Start 11/01/19 at 21:00 Ascorbic Acid (Vitamin C) 500 mg HS PO Last administered on 11/04/19 21:24; Start 11/01/19 at 21:00 Gadoterate Meglumine (Dotarem) 16 ml 1X ONCE IVP Last administered on 11/02/19at 16:39; Start 11/02/19 at 16:15; Stop 11/02/19 at 16:20; Status DC Piperacillin Sod/ Tazobactam Sod (Zosyn Per Pharmacy) 1 each PRN DAILY PRN MC SEE COMMENTS; Start 11/03/19 at 09:45 Piperacillin Sod/ Tazobactam Sod 3.375 gm/Sodium Chloride 50 ml @ 100 mls/hr Q6HRS IV Last administered on 11/05/19 06:11; Start 11/03/19 at 12:00 Potassium Chloride (Klor-Con) 20 meq 1X ONCE PO Last administered on 11/03/19at 15:03; Start 11/03/19 at 14:45; Stop 11/03/19 at 14:49; Status DC Hydralazine HCl (Apresoline) 50 mg BID PO Last administered on 11/05/19at 07:44; Start 11/04/19 at 14:00 Ciprofloxacin (Cipro) 500 mg BID PO Last administered on 11/05/19at 10:33; Start 11/05/19 at 10:15 Active Scripts Active Reported Magnesium (Magnesium Oxide) 400 Mg Capsule 400 Mg PO BID Hydrochlorothiazide 25 Mg Tablet 25 Mg PO DAILY Klor-Con 10 (Potassium Chloride) 10 Meq Tablet.er 10 Mcg PO TID Losartan Potassium 100 Mg Tablet 30 Mg PO DAILY Amlodipine Besylate 10 Mg Tablet 10 Mg PO DAILY Metoprolol Tartrate 50 Mg Tablet 100 Mg PO BID Xarelto (Rivaroxaban) 20 Mg Tablet 20 Mg PO DAILY Vitals/I & O Vital Sign - Last 24 Hours 11/04/19 11/04/19 11/04/19 11/04/19 10:41 10:42 10:42 11:09 Temp 98.2 98.2 Pulse 63 63 63 64 Resp 18 B/P (MAP) 174/82 174/82 174/82 134/80 (98) Pulse Ox 95 O2 Delivery Room Air 11/04/19 11/04/19 11/04/19 11/04/19 15:14 18:16 19:21 20:00 Temp 97.4 98.4 97.4 98.4 Pulse 70 71 79 Resp 18 14 B/P (MAP) 141/77 (98) 147/74 150/77 (101) Pulse Ox 97 97 O2 Delivery Room Air Room Air Room Air 11/04/19 11/04/19 11/04/19 11/05/19 21:24 21:25 22:20 03:01 Temp 97.6 98.5 97.6 98.5 Pulse 79 79 64 56 Resp 18 16 B/P (MAP) 150/77 150/77 147/75 (99) 168/85 (112) Pulse Ox 96 96 O2 Delivery Room Air Room Air 11/05/19 11/05/19 11/05/19 11/05/19 07:00 07:43 07:43 07:44 Temp 97.7 97.7 Pulse 67 67 67 67 Resp 16 B/P (MAP) 184/94 (124) 184/94 184/94 184/94 Pulse Ox 98 O2 Delivery Room Air 11/05/19 11/05/19 07:44 07:45 Pulse 67 B/P (MAP) 184/94 O2 Delivery Room Air Intake and Output 11/04/19 11/04/19 11/05/19 15:00 23:00 07:00 Intake Total 780 ml 250 ml 700 ml Output Total 475 ml 1825 ml Balance 780 ml -225 ml -1125 ml BRE MCCOY MD November 05, 2019 10:38
[2019-11-05 11:05] VITALS: BP 113/59
--- NOTE | 2019-11-05 11:44 | NUR ---
SW following. Discussed with RN, pt no longer on dapto, SW to notify [facility]. New blood cultures taken today. Palliative radiation. SW will continue to follow.
--- NOTE | 2019-11-05 12:23 | PDOC ---
JUSTYN BROTHERS MEDICAL TERRITORY MANAGER 11/05/19 1223: CARDIO Progress Notes Date and Time Date of Service 11/05/2019 Time of Evaluation 1040 Subjective Subjective: No Chest Pain, No shortness of breath, No Palpitations Vitals Vitals Vital Signs Date Time Temp Pulse Resp B/P (MAP) Pulse Ox O2 Delivery O2 Flow Rate FiO2 11/05/19 07:45 Room Air 11/05/19 07:44 67 184/94 11/05/19 07:00 97.7 16 98 97.7 Weight Weight [ ] Input and Output Intake and Output Intake and Output 11/05/19 07:00 Intake Total 1730 ml Output Total 2300 ml Balance -570 ml Intake Oral 1380 ml IV Total 350 ml Output Urine Total 1900 ml Stool Total 400 ml # Voids 1 # Bowel Movements 1 Laboratory Labs Laboratory Tests Test 11/05/19 04:00 Sodium Level 133 mmol/L (136-145) Potassium Level 3.7 mmol/L (3.5-5.1) Chloride Level 102 mmol/L (98-107) Carbon Dioxide Level 22 mmol/L (21-32) Anion Gap 9 (6-14) Blood Urea Nitrogen 30 mg/dL (8-26) Creatinine 1.1 mg/dL (0.7-1.3) Estimated GFR (Cockcroft-Gault) 67.0 Glucose Level 175 mg/dL (70-99) Calcium Level 8.2 mg/dL (8.5-10.1) Microbiology Micro Microbiology 10/30/19 Urine Culture - Final, Complete 10/30/19 Urine Culture Result 1 (PRIMITIVO) - Final, Complete 10/30/19 Antimicrobic Susceptibility - Final, Complete 10/30/19 Blood Culture - Final, Complete 10/30/19 Blood Culture Result 1 (PRIMITIVO) - Final, Complete 10/30/19 Antimicrobic Susceptibility - Final, Complete Physical Exam HEENT: Neck Supple W Full Motion Chest: Symmetric LUNGS: Clear to Auscultation Heart: S1S2, RRR Abdomen: Soft N/T Extremities: No Edema Neurology: alert, oriented, follow commands Assessment Assessment 1. Fall, generalized weakness. Reportedly down for > 24 hrs 2. THAD; resolved 3. Hypernatremia, hypokalemia; resolved 4. Stage 4 Colon CA with mets to lungs and liver treated with chemotherapy. Follows at [facility]. 5. Superior right frontal lobe edema. MRI with evidence of brain metastasis. HemoOnc following. Radiation oncology to see 6. Hypertensive urgency; improved with current regimen 7. Mild trop elevation; peak 0.166. most probable type II, demand ischemia; multiple culprits noted above. Recent echo with preserved LV systolic function. CP free. 8. H/o DVT on Xarelto 9. Bacteremia: no fever >24 hrs 10. 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 Arrhythmia; had one episode of 12-beat NSVT on tele. none further prior to 4N transfer. Recommendations Follow with hemonc. Antibiotic therapy as per ID Conservative measures CV de jesus, given advanced metastatic disease. May discharge from a CV standpoint DOM DONOVAN MD 11/05/19 1808: CARDIO Progress Notes Plan Plan Pt. seen and examined. Agree with above CLINICAL ANALYST note. Supportive care. JUSTYN BROTHERS APRN November 05, 2019 12:23 DOM DONOVAN MD November 05, 2019 18:08
[2019-11-05 15:20] VITALS: BP 123/64
[2019-11-05 19:20] VITALS: BP 153/71
[2019-11-05] MEDS: hydrALAZINE 25 MG TABLET PO SCH (21:00)
[2019-11-05] MEDS: ASCORBIC ACID 500 MG TABLET PO SCH (21:44)
[2019-11-05] MEDS: hydrALAZINE 20 MG/ML VIAL. IVP PRN (21:45)
[2019-11-05] MEDS: MULTIVITAMIN with MINERAL TABLET. PO SCH (21:45)
[2019-11-05 23:26] VITALS: BP 163/80
[2019-11-06 03:23] VITALS: BP 179/94
[2019-11-06 05:39] LABS: CALCIUM 8.4 mg/dL (8.5-10.1); CREATININE 1.1 mg/dL (0.7-1.3); POTASSIUM 3.2 mmol/L (3.5-5.1)
[2019-11-06] MEDS: PIPERACILLIN/TAZOBACTAM 3.375 GM in IV NORMAL SALINE 50ML 50 ML IV SCH ×3 (06:14→17:02)
[2019-11-06] MEDS: DEXAMETHASONE SOD PHOS 4 MG/ML VIAL IV SCH ×3 (06:15→16:15)
[2019-11-06 07:15] VITALS: BP 143/86
[2019-11-06] MEDS: hydrALAZINE 25 MG TABLET PO SCH ×2 (09:49→21:33)
[2019-11-06] MEDS: METOPROLOL TART IMMED RELEASE 50 MG TABLET. PO SCH ×2 (09:50→21:34)
[2019-11-06] MEDS: hydroCHLOROthiazide 25 MG TABLET PO SCH (09:50)
[2019-11-06] MEDS: amLODIPine BESYLATE 10 MG TABLET PO SCH (09:50)
[2019-11-06] MEDS: CIPROFLOXACIN HCL 250 MG TABLET. PO SCH ×2 (09:50→21:34)
[2019-11-06] MEDS: LOSARTAN POTASSIUM 50 MG TABLET. PO SCH (09:51)
--- NOTE | 2019-11-06 10:13 | PDOC ---
PROGRESS NOTES Chief Complaint Chief Complaint IMPRESSION Right frontal edema secondary to most likely metastatic disease History of colon cancer Stage 4 Colon CA with mets to lungs and liver treated with chemotherapy. Follows at [facility]. Superior right frontal lobe edema. MRI with evidence of brain metastasis. HemoOnc following. 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 Clarke at [facility] currently seems asymptomatic Hypernatremia secondary to severe dehydration improved Acute renal failure vasomotor etiology most likely improved with hydration Generalized weakness and deconditioning Bacteremia 1 of 2 bottles questionable strep will continue to follow results of culture Leukocytosis most likely secondary to demargination from steroids Acute febrile illness trying to rule out COVID-19 Essential hypertension Plan Follow results of COVID-19 Currently hemodynamically stable Seems to be awake oriented in person time place and situation Supportive measures Further recommendations based on the clinical course He has an MRI of the head and CT of the chest abdomen pelvis pending results of his COVID-19 testing as per protocol 27 MIN PT EXAM, CHART review, > 50% of time spent with exam, chart review, pt care coordination. History of Present Illness History of Present Illness No acute events reported overnight, case discussed with nursing staff patient in no acute distress no complaints during my visit, quite talkative. NO new neurolgical deficits evident. Awaiting for MRI. he can be transferred to a telemetry floor when bed available. Vitals Vitals Vital Signs Date Time Temp Pulse Resp B/P (MAP) Pulse Ox O2 Delivery O2 Flow Rate FiO2 11/06/19 09:51 60 143/86 11/06/19 08:10 Room Air 11/06/19 07:15 98.4 16 97 98.4 Physical Exam Physical Exam CONSTITUTIONAL: He is sitting in chair He is cooperative. He is in no acute distress. HEENT: Pupils are equal. EOMI He has normal conjunctivae. Oral cavity, pharynx is clear, but he has questionable dentition. NECK: Supple, no JVD. LUNGS: Clear to auscultation. HEART: S1, S2. ABDOMEN: Soft and nontender. No guarding. Positive bowel sounds. Ostomy without signs of any complications. Abdominal wound without signs of gross infection or some scabbed areas. EXTREMITIES: No clubbing, cyanosis or gross edema. GENITOURINARY: Saravia is out SKIN: Warm to touch without signs of rash. NEUROLOGIC: He is alert, answering questions appropriately. PSYCHIATRIC: Affect is appropriate. General: Alert, Oriented X3, Cooperative, No acute distress Heart: Regular rate, Normal S1, Normal S2, No murmurs Lungs: Clear Abdomen: Normal bowel sounds, Soft (colostomy right lower quadrant) Extremities: No edema Skin: No rashes Labs LABS Laboratory Tests Test 11/06/19 05:00 Sodium Level 139 mmol/L (136-145) Potassium Level 3.2 mmol/L (3.5-5.1) Chloride Level 102 mmol/L (98-107) Carbon Dioxide Level 31 mmol/L (21-32) Anion Gap 6 (6-14) Blood Urea Nitrogen 28 mg/dL (8-26) Creatinine 1.1 mg/dL (0.7-1.3) Estimated GFR (Cockcroft-Gault) 67.0 Glucose Level 175 mg/dL (70-99) Calcium Level 8.4 mg/dL (8.5-10.1) Assessment and Plan Assessmemt and Plan Problems Medical Problems: (1) [id number] kidney injury Status: Acute (2) Cerebral mass Status: Acute (3) Elevated troponin I level Status: Acute (4) Hypokalemia Status: Acute (5) Left-sided weakness Status: Acute Comment Review of Relevant I have reviewed the following items renetta (where applicable) has been applied. Labs Laboratory Tests Test 11/05/19 04:00 11/06/19 05:00 Sodium Level 133 mmol/L (136-145) 139 mmol/L (136-145) Potassium Level 3.7 mmol/L (3.5-5.1) 3.2 mmol/L (3.5-5.1) Chloride Level 102 mmol/L (98-107) 102 mmol/L (98-107) Carbon Dioxide Level 22 mmol/L (21-32) 31 mmol/L (21-32) Anion Gap 9 (6-14) 6 (6-14) Blood Urea Nitrogen 30 mg/dL (8-26) 28 mg/dL (8-26) Creatinine 1.1 mg/dL (0.7-1.3) 1.1 mg/dL (0.7-1.3) Estimated GFR (Cockcroft-Gault) 67.0 67.0 Glucose Level 175 mg/dL (70-99) 175 mg/dL (70-99) Calcium Level 8.2 mg/dL (8.5-10.1) 8.4 mg/dL (8.5-10.1) Laboratory Tests Test 11/06/19 05:00 Sodium Level 139 mmol/L (136-145) Potassium Level 3.2 mmol/L (3.5-5.1) Chloride Level 102 mmol/L (98-107) Carbon Dioxide Level 31 mmol/L (21-32) Anion Gap 6 (6-14) Blood Urea Nitrogen 28 mg/dL (8-26) Creatinine 1.1 mg/dL (0.7-1.3) Estimated GFR (Cockcroft-Gault) 67.0 Glucose Level 175 mg/dL (70-99) Calcium Level 8.4 mg/dL (8.5-10.1) Microbiology 10/30/19 Urine Culture - Final, Complete 10/30/19 Urine Culture Result 1 (PRIMITIVO) - Final, Complete 10/30/19 Antimicrobic Susceptibility - Final, Complete 10/30/19 Blood Culture - Final, Complete 10/30/19 Blood Culture Result 1 (PRIMITIVO) - Final, Complete 10/30/19 Antimicrobic Susceptibility - Final, Complete Medications Current Medications Sodium Chloride 1,000 ml @ 2,000 mls/hr 1X ONCE IV Last administered on 10/30/19at 18:13; Start 10/30/19 at 17:30; Stop 10/30/19 at 17:59; Status DC Potassium Chloride/Water 100 ml @ 50 mls/hr 1X ONCE IV Last administered on 10/30/19at 18:20; Start 10/30/19 at 18:30; Stop 10/30/19 at 20:29; Status DC Fentanyl Citrate (Fentanyl 2ml Vial) 50 mcg 1X ONCE IVP Last administered on 10/30/19at 18:41; Start 10/30/19 at 18:30; Stop 10/30/19 at 18:39; Status DC Fentanyl Citrate (Fentanyl 2ml Vial) 100 mcg STK-MED ONCE .ROUTE ; Start 10/30/19 at 18:39; Stop 10/30/19 at 18:40; Status DC Sodium Chloride (Normal Saline Flush) 3 ml QSHIFT PRN IV AFTER MEDS AND BLOOD DRAWS; Start 5/2/20 at 19:15 Sodium Chloride 1,000 ml @ 999 mls/hr Q1H1M STAT IV Last administered on 10/30/19at 19:42; Start 10/30/19 at 19:06; Stop 10/30/19 at 20:06; Status DC Labetalol HCl (Normodyne Iv Push) 10 mg 1X ONCE IVP Last administered on 10/30/19at 19:55; Start 10/30/19 at 20:00; Stop 10/30/19 at 20:01; Status DC Dexamethasone Sodium Phosphate (Decadron) 10 mg 1X ONCE IV Last administered on 10/30/19at 20:12; Start 10/30/19 at 20:15; Stop 10/30/19 at 20:16; Status DC Ondansetron HCl (Zofran) 4 mg PRN Q8HRS PRN IV NAUSEA/VOMITING; Start 10/30/19 at 20:30; Stop 10/31/19 at 20:29; Status DC Morphine Sulfate (Morphine Sulfate) 2 mg PRN Q2HR PRN IV PAIN; Start 10/30/19 at 20:30; Stop 10/31/19 at 20:29; Status DC Sodium Chloride 1,000 ml @ 125 mls/hr Q8H IV Last administered on 10/30/19 2 3:08; Start 10/30/19 at 20:19; Stop 10/31/19 at 10:06; Status DC Acetaminophen (Tylenol) 650 mg PRN Q4HRS PRN PO FEVER > 100.3'F; Start 10/30/19 at 20:30; Stop 10/31/19 at 20:29; Status DC Dexamethasone Sodium Phosphate (Decadron) 4 mg Q6H IV ; Start 10/30/19 at 20:30; Stop 10/30/19 at 22:55; Status DC Dexamethasone Sodium Phosphate (Decadron) 4 mg Q6H IV Last administered on 11/06/19at 06:15; Start 10/30/19 at 22:55 Nicardipine HCl 50 mg/Sodium Chloride 250 ml @ 25 mls/hr CONT PRN IV SEE I/O RECORD Last administered on 11/01/19at 07:39; Start 10/31/19 at 00:45 Clonidine HCl (Catapres Tts-2) 1 patch 1X ONCE TD Last administered on at 01:31; Start 10/31/19 at 01:15; Stop 10/31/19 at 01:16; Status DC Metoprolol Tartrate (Lopressor) 25 mg BID PO Last administered on 11/01/19at 08:53; Start 10/31/19 at 10:00; Stop 11/01/19 at 11:09; Status DC Sodium Chloride 1,000 ml @ 100 mls/hr Q10H IV Last administered on 10/31/19at 11:00; Start 10/31/19 at 11:00; Stop 10/31/19 at 13:01; Status DC Potassium Chloride/Sodium Chloride 1,000 ml @ 75 mls/hr [id number] IV Last administered on 11/06/19at 02:43; Start 10/31/19 at 13:00 Hydralazine HCl (Apresoline Inj) 10 mg PRN Q4HRS PRN IVP ELEVATED BP, SEE COMMENTS Last administered on 11/05/19at 21:45; Start 10/31/19 at 14:30 Daptomycin 440 mg/ Sodium Chloride 50 ml @ 100 mls/hr ONCE ONCE IV Last administered on 10/31/19at 21:47; Start 10/31/19 at 21:30; Stop 10/31/19 at 22:00; Status DC Potassium Chloride (Klor-Con) 40 meq 1X ONCE PO Last administered on 11/01/19at 08:53; Start 11/01/19 at 08:45; Stop 11/01/19 at 08:46; Status DC Potassium Chloride (Klor-Con) 40 meq 1X ONCE PO Last administered on 11/01/19at 11:49; Start 11/01/19 at 11:00; Stop 11/01/19 at 11:01; Status DC Potassium Chloride (Klor-Con) 40 meq 1X ONCE PO Last administered on 11/01/19at 13:58; Start 11/01/19 at 13:00; Stop 11/01/19 at 13:01; Status DC Daptomycin 450 mg/ Sodium Chloride 50 ml @ 100 mls/hr Q24H IV Last administered on 11/04/19at 21:30; Start 11/01/19 at 21:30; Stop 11/05/19 at 10:05; Status DC Ampicillin Sodium 2 gm/Sodium Chloride 100 ml @ 200 mls/hr Q4HRS IV Last administered on 11/03/19 04:20; Start 11/01/19 at 12:00; Stop 11/03/19 at 09:33; Status DC Linezolid/Dextrose 300 ml @ 300 mls/hr Q12HR IV Last administered on 11/05/19at 07:45; Start 11/01/19 at 10:00; Stop 11/05/19 at 10:07; Status DC Amlodipine Besylate (Norvasc) 10 mg DAILY PO Last administered on 11/06/19 09:50; Start 11/01/19 at 12:00 Hydrochlorothiazide (Hydrodiuril) 25 mg DAILY PO Last administered on 11/06/19 09:50; Start 11/01/19 at 12:00 Metoprolol Tartrate (Lopressor) 100 mg BID PO Last administered on 11/06/19 09:50; Start 11/01/19 at 21:00 Losartan Potassium (Cozaar) 100 mg DAILY PO Last administered on 11/06/19at 09:51; Start 11/01/19 at 12:00 Metoprolol Tartrate (Lopressor) 25 mg 1X ONCE PO Last administered on 11/01/19 11:50; Start 11/01/19 at 11:15; Stop 11/01/19 at 11:16; Status DC Metoprolol Tartrate (Lopressor) 50 mg 1X ONCE PO Last administered on 11/01/19at 11:48; Start 11/01/19 at 11:15; Stop 11/01/19 at 11:16; Status DC Acetaminophen (Tylenol) 650 mg PRN Q6HRS PRN PO MILD PAIN / TEMP > 100.3'F; Start 11/01/19 at 14:30 Multivitamins (Thera M Plus) 1 tab HS PO Last administered on 11/05/19 21:45; Start 11/01/19 at 21:00 Ascorbic Acid (Vitamin C) 500 mg HS PO Last administered on 11/05/19 21:44; Start 11/01/19 at 21:00 Gadoterate Meglumine (Dotarem) 16 ml 1X ONCE IVP Last administered on 11/02/19at 16:39; Start 11/02/19 at 16:15; Stop 11/02/19 at 16:20; Status DC Piperacillin Sod/ Tazobactam Sod (Zosyn Per Pharmacy) 1 each PRN DAILY PRN MC S EE COMMENTS; Start 11/03/19 at 09:45 Piperacillin Sod/ Tazobactam Sod 3.375 gm/Sodium Chloride 50 ml @ 100 mls/hr Q6HRS IV Last administered on 11/06/19at 06:14; Start 11/03/19 at 12:00 Potassium Chloride (Klor-Con) 20 meq 1X ONCE PO Last administered on 11/03/19at 15:03; Start 11/03/19 at 14:45; Stop 11/03/19 at 14:49; Status DC Hydralazine HCl (Apresoline) 50 mg BID PO Last administered on 11/05/19at 07:44; Start 11/04/19 at 14:00; Stop 11/05/19 at 15:19; Status DC Ciprofloxacin (Cipro) 500 mg BID PO Last administered on 11/06/19at 09:50; Start 11/05/19 at 10:15 Hydralazine HCl (Apresoline) 75 mg BID PO Last administered on 11/06/19at 09:49; Start 11/05/19 at 21:00 Active Scripts Active Reported Magnesium (Magnesium Oxide) 400 Mg Capsule 400 Mg PO BID Hydrochlorothiazide 25 Mg Tablet 25 Mg PO DAILY Klor-Con 10 (Potassium Chloride) 10 Meq Tablet.er 10 Mcg PO TID Losartan Potassium 100 Mg Tablet 30 Mg PO DAILY Amlodipine Besylate 10 Mg Tablet 10 Mg PO DAILY Metoprolol Tartrate 50 Mg Tablet 100 Mg PO BID Xarelto (Rivaroxaban) 20 Mg Tablet 20 Mg PO DAILY Vitals/I & O Vital Sign - Last 24 Hours 11/05/19 11/05/19 11/05/19 11/05/19 11:05 15:20 19:20 20:00 Temp 97.5 97.8 98.2 97.5 97.8 98.2 Pulse 74 74 71 Resp 16 16 20 B/P (MAP) 113/59 (77) 123/64 (83) 153/71 (98) Pulse Ox 98 97 96 O2 Delivery Room Air Room Air Room Air Room Air 11/05/19 11/05/19 11/05/19 11/05/19 21:00 21:45 21:45 23:26 Temp 97.7 97.7 Pulse 71 71 71 67 Resp 18 B/P (MAP) 153/71 153/71 153/71 163/80 (107) Pulse Ox 97 O2 Delivery Room Air 11/06/19 11/06/19 11/06/19 11/06/19 03:23 07:15 08:10 09:49 Temp 97.5 98.4 97.5 98.4 Pulse 60 60 60 Resp 18 16 B/P (MAP) 179/94 (122) 143/86 (105) 143/86 Pulse Ox 95 97 O2 Delivery Room Air Room Air Room Air 11/06/19 11/06/19 11/06/19 09:50 09:50 09:51 Pulse 60 60 60 B/P (MAP) 143/86 143/86 143/86 Intake and Output 11/05/19 11/05/19 11/06/19 15:00 23:00 07:00 Intake Total 480 ml Output Total 1200 ml 550 ml Balance -1200 ml -70 ml BRE MCCOY MD November 06, 2019 10:13
[2019-11-06 11:18] VITALS: BP 162/83
--- NOTE | 2019-11-06 11:47 | PDOC ---
Infectious Disease Note Subjective Subjective Feeling alright Denies SPARKS/confusion/dizziness/F/C/N/V ROS ROS per HPI Vital Sign Vital Signs Vital Signs Date Time Temp Pulse Resp B/P (MAP) Pulse Ox O2 Delivery O2 Flow Rate FiO2 11/06/19 11:18 98.1 71 16 162/83 (109) 97 Room Air 98.1 Physical Exam PHYSICAL EXAM GENERAL: Lying down, alert, appears comfortable HEENT: Pupils are equal. EOMI He has normal conjunctivae. Oral cavity, pharynx is clear, but he has questionable dentition. NECK: Supple, no JVD. LUNGS: Clear to auscultation. HEART: S1, S2. ABDOMEN: Soft and nontender. No guarding. Positive bowel sounds. Ostomy without signs of any complications. Abdominal wound without signs of gross inf ection or some scabbed areas. EXTREMITIES: No clubbing, cyanosis or gross edema. SKIN: Warm to touch without signs of rash. NEUROLOGIC: Alert, answering questions appropriately. PSYCHIATRIC: Affect is appropriate. PIV Labs Lab Laboratory Tests Test 11/06/19 05:00 Sodium Level 139 mmol/L (136-145) Potassium Level 3.2 mmol/L (3.5-5.1) Chloride Level 102 mmol/L (98-107) Carbon Dioxide Level 31 mmol/L (21-32) Anion Gap 6 (6-14) Blood Urea Nitrogen 28 mg/dL (8-26) Creatinine 1.1 mg/dL (0.7-1.3) Estimated GFR (Cockcroft-Gault) 67.0 Glucose Level 175 mg/dL (70-99) Calcium Level 8.4 mg/dL (8.5-10.1) Micro 11/05/19 Blood Culture - Preliminary, Resulted NO GROWTH AFTER 1 DAY Objective Assessment Bacteremia (1 of 2 bottles) 10/29. Enterococcus PCN sens- s/p Dapto now small GPR also given CT colon mets could be true bacteremia. Repeat BC 11/04 NGTD Enterobacter in urine 10/29- prather is out COVID - neg Leukocytosis - on Dexamethasone Large area of edema in the superior right frontal lobe: differential consideration of an underlying intra-axial mass versus edema from cerebritis. Fever better Colon cancer metastatic undergoing chemo at [facility]. 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 Clarke at [facility] - currently does not look infected Poor dentition HTN Hypernatremia H/o THAD H/o MSSA bacteremia. ba cath removed 08/05/2019 H/o Influenza B Plan Plan of Care Continue cipro for enterobacter in urine Continue Zosyn, awaiting GPR ID in blood Previously on Ampicillin f/u repeat BC from 11/04 neg so far Palliative brain XRT planned F/u labs and cults Electrolytes per primary Wound care consult D/w nursing Patient seen and examined. Chart reviewed in detail. Case discussed with HEALTH SAFETY INSTRUCTOR. Agree with above plan VILMA MOROCHO APRN November 06, 2019 11:47 CHARISSA NANCE MD November 06, 2019 20:57
--- NOTE | 2019-11-06 14:21 | PDOC ---
PROGRESS NOTES Subjective Subjective SEEN IN FOLLOW UP OF HYPONATREMIA IN SETTING OF COLON CA WITH BRAIN METS Objective Objective Vital Signs Date Time Temp Pulse Resp B/P (MAP) Pulse Ox O2 Delivery O2 Flow Rate FiO2 11/06/19 11:18 98.1 71 16 162/83 (109) 97 Room Air 98.1 Intake and Output 11/06/19 07:00 Intake Total 480 ml Output Total 1750 ml Balance -1270 ml Intake Oral 480 ml Output Urine Total 1300 ml Stool Total 450 ml # Voids 1 Physical Exam Heart: Regular rate, Normal S1, Normal S2, No murmurs, Gallops Extremities: No clubbing, No cyanosis, No edema, Normal pulses, No tenderness/swelling General: Alert, Oriented X3, Cooperative, No acute distress Lungs: Clear to auscultation, Normal air movement Diagnosis Other HYPONATREMIA Assessment Assessment Problems Medical Problems: (1) [id number] kidney injury Status: Acute (2) Cerebral mass Status: Acute (3) Elevated troponin I level Status: Acute (4) Hypokalemia Status: Acute (5) Left-sided weakness Status: Acute Comment Review of Relevant I have reviewed the following items renetta (where applicable) has been applied. Labs Laboratory Tests Test 11/05/19 04:00 11/06/19 05:00 Sodium Level 133 mmol/L (136-145) 139 mmol/L (136-145) Potassium Level 3.7 mmol/L (3.5-5.1) 3.2 mmol/L (3.5-5.1) Chloride Level 102 mmol/L (98-107) 102 mmol/L (98-107) Carbon Dioxide Level 22 mmol/L (21-32) 31 mmol/L (21-32) Anion Gap 9 (6-14) 6 (6-14) Blood Urea Nitrogen 30 mg/dL (8-26) 28 mg/dL (8-26) Creatinine 1.1 mg/dL (0.7-1.3) 1.1 mg/dL (0.7-1.3) Estimated GFR (Cockcroft-Gault) 67.0 67.0 Glucose Level 175 mg/dL (70-99) 175 mg/dL (70-99) Calcium Level 8.2 mg/dL (8.5-10.1) 8.4 mg/dL (8.5-10.1) Laboratory Tests Test 11/06/19 05:00 Sodium Level 139 mmol/L (136-145) Potassium Level 3.2 mmol/L (3.5-5.1) Chloride Level 102 mmol/L (98-107) Carbon Dioxide Level 31 mmol/L (21-32) Anion Gap 6 (6-14) Blood Urea Nitrogen 28 mg/dL (8-26) Creatinine 1.1 mg/dL (0.7-1.3) Estimated GFR (Cockcroft-Gault) 67.0 Glucose Level 175 mg/dL (70-99) Calcium Level 8.4 mg/dL (8.5-10.1) Microbiology 11/05/19 Blood Culture - Preliminary, Resulted NO GROWTH AFTER 1 DAY 10/30/19 Urine Culture - Final, Complete 10/30/19 Urine Culture Result 1 (PRIMITIVO) - Final, Complete 10/30/19 Antimicrobic Susceptibility - Final, Complete Medications Current Medications Sodium Chloride 1,000 ml @ 2,000 mls/hr 1X ONCE IV Last administered on 10/30/19at 18:13; Start 10/30/19 at 17:30; Stop 10/30/19 at 17:59; Status DC Potassium Chloride/Water 100 ml @ 50 mls/hr 1X ONCE IV Last administered on 10/30/19at 18:20; Start 10/30/19 at 18:30; Stop 10/30/19 at 20:29; Status DC Fentanyl Citrate (Fentanyl 2ml Vial) 50 mcg 1X ONCE IVP Last administered on 10/30/19at 18:41; Start 10/30/19 at 18:30; Stop 10/30/19 at 18:39; Status DC Fentanyl Citrate (Fentanyl 2ml Vial) 100 mcg STK-MED ONCE .ROUTE ; Start 10/30/19 at 18:39; Stop 10/30/19 at 18:40; Status DC Sodium Chloride (Normal Saline Flush) 3 ml QSHIFT PRN IV AFTER MEDS AND BLOOD DRAWS; Start 10/30/19 at 19:15 Sodium Chloride 1,000 ml @ 999 mls/hr Q1H1M STAT IV Last administered on 10/30/19at 19:42; Start 10/30/19 at 19:06; Stop 10/30/19 at 20:06; Status DC Labetalol HCl (Normodyne Iv Push) 10 mg 1X ONCE IVP Last administered on 10/30/19at 19:55; Start 10/30/19 at 20:00; Stop 10/30/19 at 20:01; Status DC Dexamethasone Sodium Phosphate (Decadron) 10 mg 1X ONCE IV Last administered on 10/30/19at 20:12; Start 10/30/19 at 20:15; Stop 10/30/19 at 20:16; Status DC Ondansetron HCl (Zofran) 4 mg PRN Q8HRS PRN IV NAUSEA/VOMITING; Start 10/30/19 at 20:30; Stop 10/31/19 at 20:29; Status DC Morphine Sulfate (Morphine Sulfate) 2 mg PRN Q2HR PRN IV PAIN; Start 10/30/19 at 20:30; Stop 10/31/19 at 20:29; Status DC Sodium Chloride 1,000 ml @ 125 mls/hr Q8H IV Last administered on 10/30/19at 23:08; Start 10/30/19 at 20:19; Stop 10/31/19 at 10:06; Status DC Acetaminophen (Tylenol) 650 mg PRN Q4HRS PRN PO FEVER > 100.3'F; Start 10/30/19 at 20:30; Stop 10/31/19 at 20:29; Status DC Dexamethasone Sodium Phosphate (Decadron) 4 mg Q6H IV ; Start 10/30/19 at 20:30; Stop 10/30/19 at 22:55; Status DC Dexamethasone Sodium Phosphate (Decadron) 4 mg Q6H IV Last administered on 11/06/19at 10:32; Start 10/30/19 at 22:55 Nicardipine HCl 50 mg/Sodium Chloride 250 ml @ 25 mls/hr CONT PRN IV SEE I/O RECORD Last administered on 11/01/19at 07:39; Start 10/31/19 at 00:45; Stop 11/06/19 at 11:26; Status DC Clonidine HCl (Catapres Tts-2) 1 patch 1X ONCE TD Last administered on 10/31/19at 01:31; Start 10/31/19 at 01:15; Stop 10/31/19 at 01:16; Status DC Metoprolol Tartrate (Lopressor) 25 mg BID PO Last administered on 11/01/19at 08:53; Start 10/31/19 at 10:00; Stop 11/01/19 at 11:09; Status DC Sodium Chloride 1,000 ml @ 100 mls/hr Q10H IV Last administered on 10/31/19at 11:00; Start 10/31/19 at 11:00; Stop 10/31/19 at 13:01; Status DC Potassium Chloride/Sodium Chloride 1,000 ml @ 75 mls/hr [id number] IV Last administered on 11/06/19at 02:43; Start 10/31/19 at 13:00 Hydralazine HCl (Apresoline Inj) 10 mg PRN Q4HRS PRN IVP ELEVATED BP, SEE COMMENTS Last administered on 11/05/19at 21:45; Start 10/31/19 at 14:30 Daptomycin 440 mg/ Sodium Chloride 50 ml @ 100 mls/hr ONCE ONCE IV Last administered on 10/31/19at 21:47; Start 10/31/19 at 21:30; Stop 10/31/19 at 22:00; Status DC Potassium Chloride (Klor-Con) 40 meq 1X ONCE PO Last administered on 11/01/19at 08:53; Start 11/01/19 at 08:45; Stop 11/01/19 at 08:46; Status DC Potassium Chloride (Klor-Con) 40 meq 1X ONCE PO Last administered on 11/01/19at 11:49; Start 11/01/19 at 11:00; Stop 11/01/19 at 11:01; Status DC Potassium Chloride (Klor-Con) 40 meq 1X ONCE PO Last administered on 11/01/19at 13:58; Start 11/01/19 at 13:00; Stop 11/01/19 at 13:01; Status DC Daptomycin 450 mg/ Sodium Chloride 50 ml @ 100 mls/hr Q24H IV Last administered on 11/04/19at 21:30; Start 11/01/19 at 21:30; Stop 11/05/19 at 10:05; Status DC Ampicillin Sodium 2 gm/Sodium Chloride 100 ml @ 200 mls/hr Q4HRS IV Last administered on 11/03/19at 04:20; Start 11/01/19 at 12:00; Stop 11/03/19 at 09:33; Status DC Linezolid/Dextrose 300 ml @ 300 mls/hr Q12HR IV Last administered on 11/05/19 07:45; Start 11/01/19 at 10:00; Stop 11/05/19 at 10:07; Status DC Amlodipine Besylate (Norvasc) 10 mg DAILY PO Last administered on 11/06/19at 09:50; Start 11/01/19 at 12:00 Hydrochlorothiazide (Hydrodiuril) 25 mg DAILY PO Last administered on 11/06/19 09:50; Start 11/01/19 at 12:00 Metoprolol Tartrate (Lopressor) 100 mg BID PO Last administered on 11/06/19 09:50; Start 11/01/19 at 21:00 Losartan Potassium (Cozaar) 100 mg DAILY PO Last administered on 11/06/19 09:51; Start 11/01/19 at 12:00 Metoprolol Tartrate (Lopressor) 25 mg 1X ONCE PO Last administered on 11/01/19 11:50; Start 11/01/19 at 11:15; Stop 11/01/19 at 11:16; Status DC Metoprolol Tartrate (Lopressor) 50 mg 1X ONCE PO Last administered on 11/01/19at 11:48; Start 11/01/19 at 11:15; Stop 11/01/19 at 11:16; Status DC Acetaminophen (Tylenol) 650 mg PRN Q6HRS PRN PO MILD PAIN / TEMP > 100.3'F; Start 11/01/19 at 14:30 Multivitamins (Thera M Plus) 1 tab HS PO Last administered on 11/05/19 21:45; Start 11/01/19 at 21:00 Ascorbic Acid (Vitamin C) 500 mg HS PO Last administered on 11/05/19at 21:44; Start 11/01/19 at 21:00 Gadoterate Meglumine (Dotarem) 16 ml 1X ONCE IVP Last administered on 11/02/19at 16:39; Start 11/02/19 at 16:15; Stop 11/02/19 at 16:20; Status DC Piperacillin Sod/ Tazobactam Sod (Zosyn Per Pharmacy) 1 each PRN DAILY PRN [facility] SEE COMMENTS; Start 11/03/19 at 09:45 Piperacillin Sod/ Tazobactam Sod 3.375 gm/Sodium Chloride 50 ml @ 100 mls/hr Q6HRS IV Last administered on 11/06/19at 11:37; Start 11/03/19 at 12:00 Potassium Chloride (Klor-Con) 20 meq 1X ONCE PO Last administered on 11/03/19at 15:03; Start 11/03/19 at 14:45; Stop 11/03/19 at 14:49; Status DC Hydralazine HCl (Apresoline) 50 mg BID PO Last administered on 11/05/19at 07:44; Start 11/04/19 at 14:00; Stop 11/05/19 at 15:19; Status DC Ciprofloxacin (Cipro) 500 mg BID PO Last administered on 11/06/19 09:50; Start 11/05/19 at 10:15 Hydralazine HCl (Apresoline) 75 mg BID PO Last administered on 11/06/19at 09:49; Start 11/05/19 at 21:00 Active Scripts Active Reported Magnesium (Magnesium Oxide) 400 Mg Capsule 400 Mg PO BID Hydrochlorothiazide 25 Mg Tablet 25 Mg PO DAILY Klor-Con 10 (Potassium Chloride) 10 Meq Tablet.er 10 Mcg PO TID Losartan Potassium 100 Mg Tablet 30 Mg PO DAILY Amlodipine Besylate 10 Mg Tablet 10 Mg PO DAILY Metoprolol Tartrate 50 Mg Tablet 100 Mg PO BID Xarelto (Rivaroxaban) 20 Mg Tablet 20 Mg PO DAILY Vitals/I & O Vital Sign - Last 24 Hours 11/05/19 11/05/19 11/05/19 11/05/19 15:20 19:20 20:00 21:00 Temp 97.8 98.2 97.8 98.2 Pulse 74 71 71 Resp 16 20 B/P (MAP) 123/64 (83) 153/71 (98) 153/71 Pulse Ox 97 96 O2 Delivery Room Air Room Air Room Air 11/05/19 11/05/19 11/05/19 11/06/19 21:45 21:45 23:26 03:23 Temp 97.7 97.5 97.7 97.5 Pulse 71 71 67 60 Resp 18 18 B/P (MAP) 153/71 153/71 163/80 (107) 179/94 (122) Pulse Ox 97 95 O2 Delivery Room Air Room Air 11/06/19 11/06/19 11/06/19 11/06/19 07:15 08:10 09:49 09:50 Temp 98.4 98.4 Pulse 60 60 60 Resp 16 B/P (MAP) 143/86 (105) 143/86 143/86 Pulse Ox 97 O2 Delivery Room Air Room Air 11/06/19 11/06/19 11/06/19 09:50 09:51 11:18 Temp 98.1 98.1 Pulse 60 60 71 Resp 16 B/P (MAP) 143/86 143/86 162/83 (109) Pulse Ox 97 O2 Delivery Room Air Intake and Output 11/05/19 11/05/19 11/06/19 15:00 23:00 07:00 Intake Total 480 ml Output Total 1200 ml 550 ml Balance -1200 ml -70 ml JOE LIU MD November 06, 2019 14:21
[2019-11-06 15:22] VITALS: BP 118/64
[2019-11-06 19:00] VITALS: BP 150/77
[2019-11-06] MEDS: MULTIVITAMIN with MINERAL TABLET. PO SCH (21:34)
[2019-11-06] MEDS: ASCORBIC ACID 500 MG TABLET PO SCH (21:34)
[2019-11-06 23:00] VITALS: BP 163/84
[2019-11-07] MEDS: PIPERACILLIN/TAZOBACTAM 3.375 GM in IV NORMAL SALINE 50ML 50 ML IV SCH ×4 (00:39→18:00)
[2019-11-07] MEDS: DEXAMETHASONE SOD PHOS 4 MG/ML VIAL IV SCH ×4 (00:40→16:55)
[2019-11-07 03:00] VITALS: BP 169/77
[2019-11-07 07:00] VITALS: BP 192/91
[2019-11-07] MEDS: hydroCHLOROthiazide 25 MG TABLET PO SCH (09:40)
[2019-11-07] MEDS: CIPROFLOXACIN HCL 250 MG TABLET. PO SCH ×2 (09:41→21:10)
[2019-11-07] MEDS: METOPROLOL TART IMMED RELEASE 50 MG TABLET. PO SCH ×2 (09:41→21:09)
[2019-11-07] MEDS: LOSARTAN POTASSIUM 50 MG TABLET. PO SCH (09:42)
[2019-11-07] MEDS: hydrALAZINE 25 MG TABLET PO SCH ×2 (09:43→21:09)
[2019-11-07] MEDS: amLODIPine BESYLATE 10 MG TABLET PO SCH (09:43)
--- NOTE | 2019-11-07 10:27 | PDOC ---
PROGRESS NOTES Chief Complaint Chief Complaint IMPRESSION Right frontal edema secondary to most likely metastatic disease History of colon cancer Stage 4 Colon CA with mets to lungs and liver treated with chemotherapy. Follows at [facility]. [facility] right frontal lobe edema. MRI with evidence of brain metastasis. HemoOnc following. 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 Clarke at [facility] currently seems asymptomatic Hypernatremia secondary to severe dehydration improved Acute renal failure vasomotor etiology most likely improved with hydration Generalized weakness and deconditioning Bacteremia 1 of 2 bottles questionable strep will continue to follow results of culture Leukocytosis most likely secondary to demargination from steroids Acute febrile illness trying to rule out COVID-19 Essential hypertension Plan Follow results of COVID-19 Currently hemodynamically stable Seems to be awake oriented in person time place and situation Supportive measures Further recommendations based on the clinical course He has an MRI of the head and CT of the chest abdomen pelvis pending results of his COVID-19 testing as per protocol Palliative brain XRT planned 27 MIN PT EXAM, CHART review, > 50% of time spent with exam, chart review, pt care coordination. History of Present Illness History of Present Illness No acute events reported overnight, case discussed with nursing staff patient in no acute distress no complaints during my visit, quite talkative. NO new neurolgical deficits evident. Awaiting for MRI. he can be transferred to a telemetry floor when bed available. Vitals Vitals Vital Signs Date Time Temp Pulse Resp B/P (MAP) Pulse Ox O2 Delivery O2 Flow Rate FiO2 11/07/19 09:43 65 192/91 11/07/19 07:00 98.0 18 95 Room Air 98.0 Physical Exam Physical Exam GENERAL: Lying down, alert, appears comfortable HEENT: Pupils are equal. EOMI He has normal conjunctivae. Oral cavity, pharynx is clear, but he has questionable dentition. NECK: Supple, no JVD. LUNGS: Clear to auscultation. HEART: S1, S2. ABDOMEN: Soft and nontender. No guarding. Positive bowel sounds. Ostomy without signs of any complications. Abdominal wound without signs of gross infection or some scabbed areas. EXTREMITIES: No clubbing, cyanosis or gross edema. SKIN: Warm to touch without signs of rash. NEUROLOGIC: Alert, answering questions appropriately. PSYCHIATRIC: Affect is appropriate. PIV General: Alert, Oriented X3, Cooperative, No acute distress Heart: Regular rate, Normal S1, Normal S2, No murmurs, Gallops Lungs: Clear Abdomen: Normal bowel sounds, Soft (colostomy right lower quadrant) Extremities: No clubbing, No cyanosis, No edema, Normal pulses, No t enderness/swelling Skin: No rashes Labs LABS BRAIN WO/W CONTRAST Date: 11/02/2019 8:00 AM Indication: Brain mass on CT. History of colon cancer. Comparison: CT 10/30/2019. Technique: Multiplanar multisequence MRI of the brain was performed with and without intravenous contrast using the standard protocol. 16 cc Dotarem contrast was administered intravenously during the exam. Findings: Right frontal lobe necrotic enhancing mass measuring 2.3 x 2.2 cm. Additional right high frontal lobe parafalcine mass measuring 1.5 x 1.2 cm. Extensive surrounding edema with right hemispheric sulcal effacement, partial effacement of the right lateral ventricle, and 2 mm right left midline shift. Patent basilar cisterns. No acute infarct. No acute or chronic hemorrhage. Ventricles are not dilated. Mild scattered FLAIR hyperintensities in the subcortical and periventricular deep white matter, a nonspecific finding, most commonly seen with chronic small vessel ischemic disease. Small area of left frontoparietal encephalomalacia. The scalp and calvarium are normal. The pituitary and sella are normal. No Chiari malformation. The visualized upper cervical spine is normal. The visualized orbits and globes are normal. The visualized paranasal sinuses are clear. Trace right mastoid fluid. Normal flow voids within the vertebral, basilar, and internal carotid arteries indicating patency. IMPRESSION: Two enhancing right frontal lobe lesions concerning for metastatic disease, given history of malignancy. Extensive right hemispheric edema with 2 mm right to left midline shift. Electronically signed by: Kary Irene MD (11/02/2019 5:02 PM) [id number] DICTATED and SIGNED BY: KARY IRENE MD DATE: 11/02/191701 Assessment and Plan Assessmemt and Plan Problems Medical Problems: (1) Vpneo-[id number] kidney injury Status: Acute (2) Cerebral mass Status: Acute (3) Elevated troponin I level Status: Acute (4) Hypokalemia Status: Acute (5) Left-sided weakness Status: Acute Comment Review of Relevant I have reviewed the following items renetta (where applicable) has been applied. Labs Laboratory Tests Test 11/06/19 05:00 Sodium Level 139 mmol/L (136-145) Potassium Level 3.2 mmol/L (3.5-5.1) Chloride Level 102 mmol/L (98-107) Carbon Dioxide Level 31 mmol/L (21-32) Anion Gap 6 (6-14) Blood Urea Nitrogen 28 mg/dL (8-26) Creatinine 1.1 mg/dL (0.7-1.3) Estimated GFR (Cockcroft-Gault) 67.0 Glucose Level 175 mg/dL (70-99) Calcium Level 8.4 mg/dL (8.5-10.1) Microbiology 11/05/19 Blood Culture - Preliminary, Resulted NO GROWTH AFTER 1 DAY 10/30/19 Urine Culture - Final, Complete 10/30/19 Urine Culture Result 1 (PRIMITIVO) - Final, Complete 10/30/19 Antimicrobic Susceptibility - Final, Complete Medications Current Medications Sodium Chloride 1,000 ml @ 2,000 mls/hr 1X ONCE IV Last administered on 10/30/19at 18:13; Start 10/30/19 at 17:30; Stop 10/30/19 at 17:59; Status DC Potassium Chloride/Water 100 ml @ 50 mls/hr 1X ONCE IV Last administered on 10/30/19at 18:20; Start 10/30/19 at 18:30; Stop 10/30/19 at 20:29; Status DC Fentanyl Citrate (Fentanyl 2ml Vial) 50 mcg 1X ONCE IVP Last administered on 10/30/19at 18:41; Start 10/30/19 at 18:30; Stop 10/30/19 at 18:39; Status DC Fentanyl Citrate (Fentanyl 2ml Vial) 100 mcg STK-MED ONCE .ROUTE ; Start 10/30/19 at 18:39; Stop 10/30/19 at 18:40; Status DC Sodium Chloride (Normal Saline Flush) 3 ml QSHIFT PRN IV AFTER MEDS AND BLOOD DRAWS; Start 10/30/19 at 19:15 Sodium Chloride 1,000 ml @ 999 mls/hr Q1H1M STAT IV Last administered on 10/30/19at 19:42; Start 10/30/19 at 19:06; Stop 10/30/19 at 20:06; Status DC Labetalol HCl (Normodyne Iv Push) 10 mg 1X ONCE IVP Last administered on 10/30/19at 19:55; Start 10/30/19 at 20:00; Stop 10/30/19 at 20:01; Status DC Dexamethasone Sodium Phosphate (Decadron) 10 mg 1X ONCE IV Last administered on 10/30/19at 20:12; Start 10/30/19 at 20:15; Stop 10/30/19 at 20:16; Status DC Ondansetron HCl (Zofran) 4 mg PRN Q8HRS PRN IV NAUSEA/VOMITING; Start 10/30/19 at 20:30; Stop 10/31/19 at 20:29; Status DC Morphine Sulfate (Morphine Sulfate) 2 mg PRN Q2HR PRN IV PAIN; Start 10/30/19 at 20:30; Stop 10/31/19 at 20:29; Status DC Sodium Chloride 1,000 ml @ 125 mls/hr Q8H IV Last administered on 10/30/19at 23:08; Start 10/30/19 at 20:19; Stop 10/31/19 at 10:06; Status DC Acetaminophen (Tylenol) 650 mg PRN Q4HRS PRN PO FEVER > 100.3'F; Start 10/30/19 at 20:30; Stop 10/31/19 at 20:29; Status DC Dexamethasone Sodium Phosphate (Decadron) 4 mg Q6H IV ; Start 10/30/19 at 20:30; Stop 10/30/19 at 22:55; Status DC Dexamethasone Sodium Phosphate (Decadron) 4 mg Q6H IV Last administered on 11/07/19at 05:08; Start 10/30/19 at 22:55 Nicardipine HCl 50 mg/Sodium Chloride 250 ml @ 25 mls/hr CONT PRN IV SEE I/O RECORD Last administered on 11/01/19at 07:39; Start 10/31/19 at 00:45; Stop 11/06/19 at 11:26; Status DC Clonidine HCl (Catapres Tts-2) 1 patch 1X ONCE TD Last administered on 10/31/19at 01:31; Start 10/31/19 at 01:15; Stop 10/31/19 at 01:16; Status DC Metoprolol Tartrate (Lopressor) 25 mg BID PO Last administered on 11/01/19at 08:53; Start 10/31/19 at 10:00; Stop 11/01/19 at 11:09; Status DC Sodium Chloride 1,000 ml @ 100 mls/hr Q10H IV Last administered on 10/31/19at 11:00; Start 10/31/19 at 11:00; Stop 10/31/19 at 13:01; Status DC Potassium Chloride/Sodium Chloride 1,000 ml @ 75 mls/hr [id number] IV Last administered on 11/07/19at 05:11; Start 10/31/19 at 13:00 Hydralazine HCl (Apresoline Inj) 10 mg PRN Q4HRS PRN IVP ELEVATED BP, SEE COMMENTS Last administered on 11/05/19at 21:45; Start 10/31/19 at 14:30 Daptomycin 440 mg/ Sodium Chloride 50 ml @ 100 mls/hr ONCE ONCE IV Last a dministered on 10/31/19at 21:47; Start 10/31/19 at 21:30; Stop 10/31/19 at 22:00; Status DC Potassium Chloride (Klor-Con) 40 meq 1X ONCE PO Last administered on 11/01/19 08:53; Start 11/01/19 at 08:45; Stop 11/01/19 at 08:46; Status DC Potassium Chloride (Klor-Con) 40 meq 1X ONCE PO Last administered on 11/01/19at 11:49; Start 11/01/19 at 11:00; Stop 11/01/19 at 11:01; Status DC Potassium Chloride (Klor-Con) 40 meq 1X ONCE PO Last administered on 11/01/19at 13:58; Start 11/01/19 at 13:00; Stop 11/01/19 at 13:01; Status DC Daptomycin 450 mg/ Sodium Chloride 50 ml @ 100 mls/hr Q24H IV Last administered on 11/04/19at 21:30; Start 11/01/19 at 21:30; Stop 11/05/19 at 10:05; Status DC Ampicillin Sodium 2 gm/Sodium Chloride 100 ml @ 200 mls/hr Q4HRS IV Last administered on 11/03/19at 04:20; Start 11/01/19 at 12:00; Stop 11/03/19 at 09:33; Status DC Linezolid/Dextrose 300 ml @ 300 mls/hr Q12HR IV Last administered on 11/05/19at 07:45; Start 11/01/19 at 10:00; Stop 11/05/19 at 10:07; Status DC Amlodipine Besylate (Norvasc) 10 mg DAILY PO Last administered on 11/07/19at 09:43; Start 11/01/19 at 12:00 Hydrochlorothiazide (Hydrodiuril) 25 mg DAILY PO Last administered on 11/07/19at 09:40; Start 11/01/19 at 12:00 Metoprolol Tartrate (Lopressor) 100 mg BID PO Last administered on 11/07/19 09:41; Start 11/01/19 at 21:00 Losartan Potassium (Cozaar) 100 mg DAILY PO Last administered on 11/07/19 09:42; Start 11/01/19 at 12:00 Metoprolol Tartrate (Lopressor) 25 mg 1X ONCE PO Last administered on 11/01/19at 11:50; Start 11/01/19 at 11:15; Stop 11/01/19 at 11:16; Status DC Metoprolol Tartrate (Lopressor) 50 mg 1X ONCE PO Last administered on 11/01/19at 11:48; Start 11/01/19 at 11:15; Stop 11/01/19 at 11:16; Status DC Acetaminophen (Tylenol) 650 mg PRN Q6HRS PRN PO MILD PAIN / TEMP > 100.3'F; Start 11/01/19 at 14:30 Multivitamins (Thera M Plus) 1 tab HS PO Last administered on 11/06/19at 21:34; Start 11/01/19 at 21:00 Ascorbic Acid (Vitamin C) 500 mg HS PO Last administered on 11/06/19 21:34; Start 11/01/19 at 21:00 Gadoterate Meglumine (Dotarem) 16 ml 1X ONCE IVP Last administered on 11/02/19at 16:39; Start 11/02/19 at 16:15; Stop 11/02/19 at 16:20; Status DC Piperacillin Sod/ Tazobactam Sod (Zosyn Per Pharmacy) 1 each PRN DAILY PRN [facility] SEE COMMENTS; Start 11/03/19 at 09:45 Piperacillin Sod/ Tazobactam Sod 3.375 gm/Sodium Chloride 50 ml @ 100 mls/hr Q6HRS IV Last administered on 11/07/19at 06:15; Start 11/03/19 at 12:00 Potassium Chloride (Klor-Con) 20 meq 1X ONCE PO Last administered on 11/03/19at 15:03; Start 11/03/19 at 14:45; Stop 11/03/19 at 14:49; Status DC Hydralazine HCl (Apresoline) 50 mg BID PO Last administered on 11/05/19at 07:44; Start 11/04/19 at 14:00; Stop 11/05/19 at 15:19; Status DC Ciprofloxacin (Cipro) 500 mg BID PO Last administered on 11/07/19at 09:41; Start 11/05/19 at 10:15 Hydralazine HCl (Apresoline) 75 mg BID PO Last administered on 11/07/19at 09:43; Start 11/05/19 at 21:00 Active Scripts Active Reported Magnesium (Magnesium Oxide) 400 Mg Capsule 400 Mg PO BID Hydrochlorothiazide 25 Mg Tablet 25 Mg PO DAILY Klor-Con 10 (Potassium Chloride) 10 Meq Tablet.er 10 Mcg PO TID Losartan Potassium 100 Mg Tablet 30 Mg PO DAILY Amlodipine Besylate 10 Mg Tablet 10 Mg PO DAILY Metoprolol Tartrate 50 Mg Tablet 100 Mg PO BID Xarelto (Rivaroxaban) 20 Mg Tablet 20 Mg PO DAILY Vitals/I & O Vital Sign - Last 24 Hours 11/06/19 11/06/19 11/06/19 11/06/19 11:18 15:22 19:00 20:00 Temp 98.1 98.0 98.9 98.1 98.0 98.9 Pulse 71 68 73 Resp 16 16 18 B/P (MAP) 162/83 (109) 118/64 (82) 150/77 (101) Pulse Ox 97 97 97 O2 Delivery Room Air Room Air Room Air Room Air 11/06/19 11/06/19 11/06/19 11/07/19 21:33 21:34 23:00 03:00 Temp 98.8 98.1 98.8 98.1 Pulse 73 73 71 65 Resp 18 18 B/P (MAP) 150/77 150/77 163/84 (110) 169/77 (107) Pulse Ox 94 95 O2 Delivery Room Air Room Air 11/07/19 11/07/19 11/07/19 11/07/19 07:00 09:41 09:42 09:43 Temp 98.0 98.0 Pulse 65 65 65 65 Resp 18 B/P (MAP) 192/ (124) 192 192 192/91 Pulse Ox 95 O2 Delivery Room Air 11/07/19 09:43 Pulse 65 B/P (MAP) Intake and Output 11/06/19 11/06/19 11/07/19 15:00 23:00 07:00 Intake Total 150 ml Output Total 1250 ml 600 ml 300 ml Balance -1250 ml -600 ml -150 ml BRE MCCOY MD November 07, 2019 10:27
--- NOTE | 2019-11-07 11:04 | PDOC ---
Infectious Disease Note Subjective Subjective Feeling clean after getting hair washed Denies SPARKS/confusion/dizziness/F/C/N/V ROS ROS per HPI Vital Sign Vital Signs Vital Signs Date Time Temp Pulse Resp B/P (MAP) Pulse Ox O2 Delivery O2 Flow Rate FiO2 11/07/19 09:43 65 192/91 11/07/19 07:00 98.0 18 95 Room Air 98.0 Physical Exam PHYSICAL EXAM GENERAL: Lying down, alert, appears comfortable HEENT: Pupils are equal. EOMI He has normal conjunctivae. Oral cavity, pharynx is clear, but he has questionable dentition. NECK: Supple, no JVD. LUNGS: Clear to auscultation. HEART: S1, S2. ABDOMEN: Soft and nontender. No guarding. Positive bowel sounds. Ostomy without signs of any complications. Abdominal wound without signs of gross infection or some scabbed areas. EXTREMITIES: No clubbing, cyanosis or gross edema. SKIN: Warm to touch without signs of rash. NEUROLOGIC: Alert, answering questions appropriately. PSYCHIATRIC: Affect is appropriate. PIV Labs Micro 11/05/19 Blood Culture - Preliminary, Resulted NO GROWTH AFTER 1 DAY 10/29. BLOOD CULTURE Final GRAM POSITIVE COCCI IN PAIRS AND CHAINS, SUGGESTIVE OF STREP. IN 1 OF 2 BOTTLES, TWO SETS DRAWN. CALLED TO SUSAN ARCE RN IN ICU AT 10:05 OM 10/31/19 DW MT SENT TO [facility] FOR FURTHER WORKUP. AMMENDED REPORT: SECOND BOTTLE OF THIS SET HAS SMALL GRAM POSITIVE RODS. CALLED TO MATTHEW PAPPAS RN ON 6S AT 08:30 ON DW MT Objective Assessment Bacteremia (1 of 2 bottles) 10/29. Enterococcus PCN sens- s/p Dapto now small GPR also given CT colon mets could be true bacteremia. Repeat BC 11/04 NGTD Enterobacter in urine 10/29- prather is out COVID - neg Leukocytosis - on Dexamethasone Large area of edema in the superior right frontal lobe: differential consideration of an underlying intra-axial mass versus edema from cerebritis. Fever better Colon cancer metastatic undergoing chemo at [facility]. 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 Clarke at [facility] - currently does not look infected Poor dentition HTN Hypernatremia H/o THAD H/o MSSA bacteremia. ba cath removed 08/05/2019 H/o Influenza B Plan Plan of Care Continue cipro for enterobacter in urine Continue Zosyn, awaiting GPR ID in blood Previously on Ampicillin f/u repeat BC from 11/04 neg so far Palliative brain XRT planned F/u labs and cults Electrolytes per primary Wound care consult Patient seen and examined. Chart reviewed in detail. Case discussed with INTERNATIONAL ACCOUNT REPRESENTATIVE.Agree with above plan VILMA MOROCHO APRN November 07, 2019 11:04 CHARISSA NANCE MD November 07, 2019 16:50
[2019-11-07 11:13] VITALS: BP 149/80
[2019-11-07] MEDS ORDERED: POTASSIUM CHLORIDE 20 MEQ TABLET.ER. PO ONE (13:00)
[2019-11-07 15:00] VITALS: BP 142/78
[2019-11-07 19:00] VITALS: BP 152/77
[2019-11-07] MEDS: ASCORBIC ACID 500 MG TABLET PO SCH (21:08)
[2019-11-07] MEDS: MULTIVITAMIN with MINERAL TABLET. PO SCH (21:10)
[2019-11-07 23:00] VITALS: BP 159/77
[2019-11-08] MEDS: PIPERACILLIN/TAZOBACTAM 3.375 GM in IV NORMAL SALINE 50ML 50 ML IV SCH ×4 (00:04→19:15)
[2019-11-08] MEDS: DEXAMETHASONE SOD PHOS 4 MG/ML VIAL IV SCH ×5 (00:56→23:01)
[2019-11-08 03:00] VITALS: BP 154/86
[2019-11-08 04:57] LABS: BASO % 0 % (0-3); EOS # 0.1 x10^3/uL (0.0-0.7); EOS % 1 % (0-3); HEMATOCRIT 35.2 % (39.0-53.0); HEMOGLOBIN 11.7 g/dL (13.0-17.5); LYMPH # 0.5 x10^3/uL (1.0-4.8); LYMPH % 4 % (24-48); MEAN CORPUSCULAR HEMOGLOBIN 27 pg (25-35); MEAN CORPUSCULAR HGB CONC 33 g/dL (31-37); MEAN CORPUSCULAR VOLUME 82 fL (79-100); MONO # 0.6 x10^3/uL (0.0-1.1); MONO % 5 % (0-9); NEUT # 11.5 x10^3/uL (1.8-7.7); NEUT % 90 % (31-73); RED CELL DISTRIBUTION WIDTH 14.9 % (11.5-14.5); WHITE BLOOD COUNT 12.7 x10^3/uL (4.0-11.0)
[2019-11-08 05:31] LABS: ALBUMIN 1.9 g/dL (3.4-5.0)
[2019-11-08 05:32] LABS: CALCIUM 8.2 mg/dL (8.5-10.1); GFR 74.8; PHOSPHORUS 2.1 mg/dL (2.6-4.7)
[2019-11-08 05:54] LABS: POTASSIUM 4.1 mmol/L (3.5-5.1)
[2019-11-08 05:59] LABS: PLATELET COUNT 180 x10^3/uL (140-400)
[2019-11-08 07:00] VITALS: BP 184/89
[2019-11-08] MEDS: CIPROFLOXACIN HCL 250 MG TABLET. PO SCH ×2 (08:36→20:35)
[2019-11-08] MEDS: METOPROLOL TART IMMED RELEASE 50 MG TABLET. PO SCH ×2 (08:36→20:35)
[2019-11-08] MEDS: POTASSIUM CHLORIDE 20 MEQ TABLET.ER. PO SCH (08:37)
[2019-11-08] MEDS: amLODIPine BESYLATE 10 MG TABLET PO SCH (08:37)
[2019-11-08] MEDS: hydrALAZINE 25 MG TABLET PO SCH ×2 (08:37→20:35)
[2019-11-08] MEDS: hydroCHLOROthiazide 25 MG TABLET PO SCH (08:38)
[2019-11-08] MEDS: LOSARTAN POTASSIUM 50 MG TABLET. PO SCH (08:38)
--- NOTE | 2019-11-08 08:53 | PDOC ---
Infectious Disease Note Subjective Subjective feeling ok, no complaints ROS ROS no n/v/d/sob/fever Vital Sign Vital Signs Vital Signs Date Time Temp Pulse Resp B/P (MAP) Pulse Ox O2 Delivery O2 Flow Rate FiO2 11/08/19 08:38 70 184/89 11/08/19 07:00 97.4 18 96 Room Air 97.4 Physical Exam PHYSICAL EXAM GENERAL: Lying down, alert, appears comfortable HEENT: Pupils are equal. EOMI He has normal conjunctivae. Oral cavity, pharynx is clear, but he has questionable dentition. NECK: Supple, no JVD. LUNGS: Clear to auscultation. HEART: S1, S2. ABDOMEN: Soft and nontender. No guarding. Positive bowel sounds. Ostomy without signs of any complications. Abdominal wound without signs of gross inf ection or some scabbed areas. EXTREMITIES: No clubbing, cyanosis or gross edema. SKIN: Warm to touch without signs of rash. NEUROLOGIC: Alert, answering questions appropriately. PSYCHIATRIC: Affect is appropriate. PIV Labs Lab Laboratory Tests Test 11/08/19 03:15 White Blood Count 12.7 x10^3/uL (4.0-11.0) Red Blood Count 4.30 x10^6/uL (4.30-5.70) Hemoglobin 11.7 g/dL (13.0-17.5) Hematocrit 35.2 % (39.0-53.0) Mean Corpuscular Volume 82 fL (79-100) Mean Corpuscular Hemoglobin 27 pg (25-35) Mean Corpuscular Hemoglobin Concent 33 g/dL (31-37) Red Cell Distribution Width 14.9 % (11.5-14.5) Platelet Count 180 x10^3/uL (140-400) Neutrophils (%) (Auto) 90 % (31-73) Lymphocytes (%) (Auto) 4 % (24-48) Monocytes (%) (Auto) 5 % (0-9) Eosinophils (%) (Auto) 1 % (0-3) Basophils (%) (Auto) 0 % (0-3) Neutrophils # (Auto) 11.5 x10^3/uL (1.8-7.7) Lymphocytes # (Auto) 0.5 x10^3/uL (1.0-4.8) Monocytes # (Auto) 0.6 x10^3/uL (0.0-1.1) Eosinophils # (Auto) 0.1 x10^3/uL (0.0-0.7) Basophils # (Auto) 0.0 x10^3/uL (0.0-0.2) Sodium Level 134 mmol/L (136-145) Potassium Level 4.1 mmol/L (3.5-5.1) Chloride Level 99 mmol/L (98-107) Carbon Dioxide Level 27 mmol/L (21-32) Anion Gap 8 (6-14) Blood Urea Nitrogen 24 mg/dL (8-26) Creatinine 1.0 mg/dL (0.7-1.3) Estimated GFR (Cockcroft-Gault) 74.8 Glucose Level 176 mg/dL (70-99) Calcium Level 8.2 mg/dL (8.5-10.1) Phosphorus Level 2.1 mg/dL (2.6-4.7) Albumin 1.9 g/dL (3.4-5.0) Micro Microbiology 11/05/19 Blood Culture - Preliminary, Resulted NO GROWTH AFTER 2 DAYS 10/30/19 Urine Culture - Final, Complete 10/30/19 Urine Culture Result 1 (PRIMITIVO) - Final, Complete 10/30/19 Antimicrobic Susceptibility - Final, Complete Objective Assessment Bacteremia (1 of 2 bottles) 10/29. Enterococcus PCN sens- s/p Dapto now small GPR also given CT colon mets could be true bacteremia. Repeat BC 11/04 NGTD Enterobacter in urine 10/29- prather is out COVID - neg Leukocytosis - on Dexamethasone Large area of edema in the superior right frontal lobe: differential consideration of an underlying intra-axial mass versus edema from cerebritis. Fever better Colon cancer metastatic undergoing chemo at [facility]. 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 Clarke at [facility] - currently does not look infected Poor dentition HTN Hypernatremia H/o THAD H/o MSSA bacteremia. ba cath removed 08/05/2019 H/o Influenza B Plan Plan of Care Continue cipro for enterobacter in urine Continue Zosyn, awaiting GPR ID in blood Previously on Ampicillin f/u repeat BC from 11/04 neg so far Palliative brain XRT planned F/u labs and cults Electrolytes per primary Wound care consult prognosis poor, HENNESSY,MARCELO R MD November 08, 2019 08:53
--- NOTE | 2019-11-08 10:15 | PDOC ---
SUBJECTIVE ROS No complaints, OBJECTIVE Vital Signs Vital Signs Date Time Temp Pulse Resp B/P (MAP) Pulse Ox O2 Delivery O2 Flow Rate FiO2 11/08/19 08:38 70 184/89 11/08/19 07:00 97.4 18 96 Room Air 97.4 I & 0 Intake and Output 11/08/19 07:00 Intake Total 300 ml Output Total 3050 ml Balance -2750 ml Intake Oral 300 ml Output Urine Total 2800 ml Stool Total 250 ml PHYSICAL EXAM Physical Exam GENERAL: NAD HEENT: Oropharynx moist NECK: Supple. LUNGS: Diminished at bases , nonlabored. HEART: S1, S2 regular. ABDOMEN: Soft, nontender, ostomy +. EXTREMITIES: No gross edema or cyanosis. SKIN: No signs of rash. NEUROLOGIC: Alert and awake, Chronic mild tremors Prather + DIAGNOSIS/ASSESSMENT Assessment & Plan Acute kidney injury:Suspect ATN 2/2, Improved UA unremarkable, good uop, Supportive care, Avoid nephrotoxins Hx of THAD in Jul 2019 - needing HD , improved Pt was off Dialysis when dc from [facility] in 2018 as well , baseline Cr has been normal Hyponatremic, restrict PO water intake, Hold HCTZ if persistent , SIADH Hypernatremia at presentation HypoKalemia- replace as indicated Bacteremia - Enterococcus Enterobacter in urine 10/29- prather dced Widely metastatic colon cancer undergoing chemotherapy at [facility] Brain metastasis: - Palliative radiotherapy to the 2 intracranial lesions in the right frontal lobe. per Neurosurgery not a good surgical candidate On Dexamethasone, taper per radiation oncology Hx of infected abdominal hernia mesh history of scrotal abscess history of urinary tract infections COVID-19 negative Chronic abdominal wound for which he is followed by Dr. Clarke at [facility] Will sign off COMMENT/RELEVANT DATA Meds Current Medications Medications (Trade) Dose Ordered Sig/Joseph Start Time Stop Time Status Last Admin Dose Admin Acetaminophen (Tylenol) 650 mg PRN Q6HRS PRN 11/01/19 14:30 Amlodipine Besylate (Norvasc) 10 mg DAILY 11/01/19 12:00 11/08/19 08:37 10 MG Ampicillin Sodium 2 gm/Sodium Chloride 100 ml @ 200 mls/hr Q4HRS 11/01/19 12:00 11/03/19 09:33 DC 11/03/19 04:20 200 MLS/HR Ascorbic Acid (Vitamin C) 500 mg HS 11/01/19 21:00 11/07/19 21:08 500 MG Ciprofloxacin (Cipro) 500 mg BID 11/05/19 10:15 11/08/19 08:36 500 MG Clonidine HCl (Catapres Tts-2) 1 patch 1X ONCE 10/31/19 01:15 10/31/19 01:16 DC 10/31/19 01:31 1 PATCH Daptomycin 440 mg/ Sodium Chloride 50 ml @ 100 mls/hr ONCE ONCE 10/31/19 21:30 10/31/19 22:00 DC 10/31/19 21:47 100 MLS/HR Daptomycin 450 mg/ Sodium Chloride 50 ml @ 100 mls/hr Q24H 11/01/19 21:30 11/05/19 10:05 DC 11/04/19 21:30 100 MLS/HR Dexamethasone Sodium Phosphate (Decadron) 4 mg Q6H 10/30/19 22:55 11/08/19 05:32 4 MG Fentanyl Citrate (Fentanyl 2ml Vial) 100 mcg STK-MED ONCE 10/30/19 18:39 10/30/19 18:40 DC Gadoterate Meglumine (Dotarem) 16 ml 1X ONCE 11/02/19 16:15 11/02/19 16:20 DC 11/02/19 16:39 16 ML Hydralazine HCl (Apresoline Inj) 10 mg PRN Q4HRS PRN 10/31/19 14:30 11/05/19 21:45 10 MG Hydralazine HCl (Apresoline) 75 mg BID 11/05/19 21:00 11/08/19 08:37 75 MG Hydrochlorothiazide (Hydrodiuril) 25 mg DAILY 11/01/19 12:00 11/08/19 08:38 25 MG Labetalol HCl (Normodyne Iv Push) 10 mg 1X ONCE 10/30/19 20:00 10/30/19 20:01 DC 10/30/19 19:55 10 MG Linezolid/Dextrose 300 ml @ 300 mls/hr Q12HR 11/01/19 10:00 11/05/19 10:07 DC 11/05/19 07:45 300 MLS/HR Losartan Potassium (Cozaar) 100 mg DAILY 11/01/19 12:00 11/08/19 08:38 100 MG Metoprolol Tartrate (Lopressor) 50 mg 1X ONCE 11/01/19 11:15 11/01/19 11:16 DC 11/01/19 11:48 50 MG Morphine Sulfate (Morphine Sulfate) 2 mg PRN Q2HR PRN 10/30/19 20:30 10/31/19 20:29 DC Multivitamins (Thera M Plus) 1 tab HS 11/01/19 21:00 11/07/19 21:10 1 TAB Nicardipine HCl 50 mg/Sodium Chloride 250 ml @ 25 mls/hr CONT PRN 10/31/19 00:45 11/06/19 11:26 DC 11/01/19 07:39 62.5 MLS/HR Ondansetron HCl (Zofran) 4 mg PRN Q8HRS PRN 10/30/19 20:30 10/31/19 20:29 DC Piperacillin Sod/ Tazobactam Sod (Zosyn Per Pharmacy) 1 each PRN DAILY PRN 11/03/19 09:45 Piperacillin Sod/ Tazobactam Sod 3.375 gm/Sodium Chloride 50 ml @ 100 mls/hr Q6HRS 11/03/19 12:00 11/08/19 05:32 100 MLS/HR Potassium Chloride/Sodium Chloride 1,000 ml @ 75 mls/hr [id number] 10/31/19 13:00 11/08/19 00:05 75 MLS/HR Potassium Chloride/Water 100 ml @ 50 mls/hr 1X ONCE 10/30/19 18:30 10/30/19 20:29 DC 10/30/19 18:20 50 MLS/HR Potassium Chloride (Klor-Con) 20 meq [id number] 11/08/19 08:00 11/08/19 08:37 20 MEQ Sodium Chloride 1,000 ml @ 100 mls/hr Q10H 10/31/19 11:00 10/31/19 13:01 DC 10/31/19 11:00 100 MLS/HR Sodium Chloride (Normal Saline Flush) 3 ml QSHIFT PRN 10/30/19 19:15 Lab Laboratory Tests Test 11/08/19 03:15 White Blood Count 12.7 x10^3/uL (4.0-11.0) Red Blood Count 4.30 x10^6/uL (4.30-5.70) Hemoglobin 11.7 g/dL (13.0-17.5) Hematocrit 35.2 % (39.0-53.0) Mean Corpuscular Volume 82 fL (79-100) Mean Corpuscular Hemoglobin 27 pg (25-35) Mean Corpuscular Hemoglobin Concent 33 g/dL (31-37) Red Cell Distribution Width 14.9 % (11.5-14.5) Platelet Count 180 x10^3/uL (140-400) Neutrophils (%) (Auto) 90 % (31-73) Lymphocytes (%) (Auto) 4 % (24-48) Monocytes (%) (Auto) 5 % (0-9) Eosinophils (%) (Auto) 1 % (0-3) Basophils (%) (Auto) 0 % (0-3) Neutrophils # (Auto) 11.5 x10^3/uL (1.8-7.7) Lymphocytes # (Auto) 0.5 x10^3/uL (1.0-4.8) Monocytes # (Auto) 0.6 x10^3/uL (0.0-1.1) Eosinophils # (Auto) 0.1 x10^3/uL (0.0-0.7) Basophils # (Auto) 0.0 x10^3/uL (0.0-0.2) Sodium Level 134 mmol/L (136-145) Potassium Level 4.1 mmol/L (3.5-5.1) Chloride Level 99 mmol/L (98-107) Carbon Dioxide Level 27 mmol/L (21-32) Anion Gap 8 (6-14) Blood Urea Nitrogen 24 mg/dL (8-26) Creatinine 1.0 mg/dL (0.7-1.3) Estimated GFR (Cockcroft-Gault) 74.8 Glucose Level 176 mg/dL (70-99) Calcium Level 8.2 mg/dL (8.5-10.1) Phosphorus Level 2.1 mg/dL (2.6-4.7) Albumin 1.9 g/dL (3.4-5.0) Results All relevant outside records, renal labs, imaging studies, telemetry/EKG's were reviewed. JE RIBEIRO MD November 08, 2019 10:15
--- NOTE | 2019-11-08 10:57 | PDOC ---
PROGRESS NOTES Chief Complaint Chief Complaint IMPRESSION Right frontal edema secondary to most likely metastatic disease History of colon cancer Stage 4 Colon CA with mets to lungs and liver treated with chemotherapy. Follows at [facility]. [facility] right frontal lobe edema. MRI with evidence of brain metastasis. HemoOnc following. 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 Clarke at [facility] currently seems asymptomatic Hypernatremia secondary to severe dehydration improved Acute renal failure vasomotor etiology most likely improved with hydration Generalized weakness and deconditioning Bacteremia 1 of 2 bottles questionable strep will continue to follow results of culture Leukocytosis most likely secondary to demargination from steroids Acute febrile illness trying to rule out COVID-19 Essential hypertension Plan Follow results of COVID-19 Currently hemodynamically stable Seems to be awake oriented in person time place and situation Supportive measures Further recommendations based on the clinical course He has an MRI of the head and CT of the chest abdomen pelvis pending results of his COVID-19 testing as per protocol Palliative brain XRT planned Widely metastatic colon cancer undergoing chemotherapy at [facility] 37 MIN PT EXAM, CHART review, > 50% of time spent with exam, chart review, pt care coordination. History of Present Illness History of Present Illness No acute events reported overnight, case discussed with nursing staff patient in no acute distress no complaints during my visit, quite talkative. NO new neurolgical deficits evident. Awaiting for MRI. he can be transferred to a tele metry floor when bed available. Vitals Vitals Vital Signs Date Time Temp Pulse Resp B/P (MAP) Pulse Ox O2 Delivery O2 Flow Rate FiO2 11/08/19 08:38 70 184/89 11/08/19 08:00 Room Air 11/08/19 07:00 97.4 18 96 97.4 Physical Exam Physical Exam GENERAL: Lying down, alert, appears comfortable HEENT: Pupils are equal. EOMI He has normal conjunctivae. Oral cavity, pharynx is clear, but he has questionable dentition. NECK: Supple, no JVD. LUNGS: Clear to auscultation. HEART: S1, S2. ABDOMEN: Soft and nontender. No guarding. Positive bowel sounds. Ostomy without signs of any complications. Abdominal wound without signs of gross infe ction or some scabbed areas. EXTREMITIES: No clubbing, cyanosis or gross edema. SKIN: Warm to touch without signs of rash. NEUROLOGIC: Alert, answering questions appropriately. PSYCHIATRIC: Affect is appropriate. PIV General: Alert, Oriented X3, Cooperative, No acute distress Heart: Regular rate, Normal S1, Normal S2, No murmurs, Gallops Lungs: Clear Abdomen: Normal bowel sounds, Soft (colostomy right lower quadrant) Extremities: No clubbing, No cyanosis, No edema, Normal pulses, No tenderness/swelling Skin: No rashes Labs LABS Laboratory Tests Test 11/08/19 03:15 White Blood Count 12.7 x10^3/uL (4.0-11.0) Red Blood Count 4.30 x10^6/uL (4.30-5.70) Hemoglobin 11.7 g/dL (13.0-17.5) Hematocrit 35.2 % (39.0-53.0) Mean Corpuscular Volume 82 fL (79-100) Mean Corpuscular Hemoglobin 27 pg (25-35) Mean Corpuscular Hemoglobin Concent 33 g/dL (31-37) Red Cell Distribution Width 14.9 % (11.5-14.5) Platelet Count 180 x10^3/uL (140-400) Neutrophils (%) (Auto) 90 % (31-73) Lymphocytes (%) (Auto) 4 % (24-48) Monocytes (%) (Auto) 5 % (0-9) Eosinophils (%) (Auto) 1 % (0-3) Basophils (%) (Auto) 0 % (0-3) Neutrophils # (Auto) 11.5 x10^3/uL (1.8-7.7) Lymphocytes # (Auto) 0.5 x10^3/uL (1.0-4.8) Monocytes # (Auto) 0.6 x10^3/uL (0.0-1.1) Eosinophils # (Auto) 0.1 x10^3/uL (0.0-0.7) Basophils # (Auto) 0.0 x10^3/uL (0.0-0.2) Sodium Level 134 mmol/L (136-145) Potassium Level 4.1 mmol/L (3.5-5.1) Chloride Level 99 mmol/L (98-107) Carbon Dioxide Level 27 mmol/L (21-32) Anion Gap 8 (6-14) Blood Urea Nitrogen 24 mg/dL (8-26) Creatinine 1.0 mg/dL (0.7-1.3) Estimated GFR (Cockcroft-Gault) 74.8 Glucose Level 176 mg/dL (70-99) Calcium Level 8.2 mg/dL (8.5-10.1) Phosphorus Level 2.1 mg/dL (2.6-4.7) Albumin 1.9 g/dL (3.4-5.0) Assessment and Plan Assessmemt and Plan Problems Medical Problems: (1) [id number] kidney injury Status: Acute (2) Cerebral mass Status: Acute (3) Elevated troponin I level Status: Acute (4) Hypokalemia Status: Acute (5) Left-sided weakness Status: Acute Comment Review of Relevant I have reviewed the following items renetta (where applicable) has been applied. Labs Laboratory Tests Test 11/08/19 03:15 White Blood Count 12.7 x10^3/uL (4.0-11.0) Red Blood Count 4.30 x10^6/uL (4.30-5.70) Hemoglobin 11.7 g/dL (13.0-17.5) Hematocrit 35.2 % (39.0-53.0) Mean Corpuscular Volume 82 fL (79-100) Mean Corpuscular Hemoglobin 27 pg (25-35) Mean Corpuscular Hemoglobin Concent 33 g/dL (31-37) Red Cell Distribution Width 14.9 % (11.5-14.5) Platelet Count 180 x10^3/uL (140-400) Neutrophils (%) (Auto) 90 % (31-73) Lymphocytes (%) (Auto) 4 % (24-48) Monocytes (%) (Auto) 5 % (0-9) Eosinophils (%) (Auto) 1 % (0-3) Basophils (%) (Auto) 0 % (0-3) Neutrophils # (Auto) 11.5 x10^3/uL (1.8-7.7) Lymphocytes # (Auto) 0.5 x10^3/uL (1.0-4.8) Monocytes # (Auto) 0.6 x10^3/uL (0.0-1.1) Eosinophils # (Auto) 0.1 x10^3/uL (0.0-0.7) Basophils # (Auto) 0.0 x10^3/uL (0.0-0.2) Sodium Level 134 mmol/L (136-145) Potassium Level 4.1 mmol/L (3.5-5.1) Chloride Level 99 mmol/L (98-107) Carbon Dioxide Level 27 mmol/L (21-32) Anion Gap 8 (6-14) Blood Urea Nitrogen 24 mg/dL (8-26) Creatinine 1.0 mg/dL (0.7-1.3) Estimated GFR (Cockcroft-Gault) 74.8 Glucose Level 176 mg/dL (70-99) Calcium Level 8.2 mg/dL (8.5-10.1) Phosphorus Level 2.1 mg/dL (2.6-4.7) Albumin 1.9 g/dL (3.4-5.0) Laboratory Tests Test 11/08/19 03:15 White Blood Count 12.7 x10^3/uL (4.0-11.0) Red Blood Count 4.30 x10^6/uL (4.30-5.70) Hemoglobin 11.7 g/dL (13.0-17.5) Hematocrit 35.2 % (39.0-53.0) Mean Corpuscular Volume 82 fL (79-100) Mean Corpuscular Hemoglobin 27 pg (25-35) Mean Corpuscular Hemoglobin Concent 33 g/dL (31-37) Red Cell Distribution Width 14.9 % (11.5-14.5) Platelet Count 180 x10^3/uL (140-400) Neutrophils (%) (Auto) 90 % (31-73) Lymphocytes (%) (Auto) 4 % (24-48) Monocytes (%) (Auto) 5 % (0-9) Eosinophils (%) (Auto) 1 % (0-3) Basophils (%) (Auto) 0 % (0-3) Neutrophils # (Auto) 11.5 x10^3/uL (1.8-7.7) Lymphocytes # (Auto) 0.5 x10^3/uL (1.0-4.8) Monocytes # (Auto) 0.6 x10^3/uL (0.0-1.1) Eosinophils # (Auto) 0.1 x10^3/uL (0.0-0.7) Basophils # (Auto) 0.0 x10^3/uL (0.0-0.2) Sodium Level 134 mmol/L (136-145) Potassium Level 4.1 mmol/L (3.5-5.1) Chloride Level 99 mmol/L (98-107) Carbon Dioxide Level 27 mmol/L (21-32) Anion Gap 8 (6-14) Blood Urea Nitrogen 24 mg/dL (8-26) Creatinine 1.0 mg/dL (0.7-1.3) Estimated GFR (Cockcroft-Gault) 74.8 Glucose Level 176 mg/dL (70-99) Calcium Level 8.2 mg/dL (8.5-10.1) Phosphorus Level 2.1 mg/dL (2.6-4.7) Albumin 1.9 g/dL (3.4-5.0) Microbiology 11/05/19 Blood Culture - Preliminary, Resulted NO GROWTH AFTER 2 DAYS 10/30/19 Urine Culture - Final, Complete 10/30/19 Urine Culture Result 1 (PRIMITIVO) - Final, Complete 10/30/19 Antimicrobic Susceptibility - Final, Complete Medications Current Medications Sodium Chloride 1,000 ml @ 2,000 mls/hr 1X ONCE IV Last administered on 10/30/19at 18:13; Start 10/30/19 at 17:30; Stop 10/30/19 at 17:59; Status DC Potassium Chloride/Water 100 ml @ 50 mls/hr 1X ONCE IV Last administered on 10/30/19at 18:20; Start 10/30/19 at 18:30; Stop 10/30/19 at 20:29; Status DC Fentanyl Citrate (Fentanyl 2ml Vial) 50 mcg 1X ONCE IVP Last administered on 10/30/19at 18:41; Start 10/30/19 at 18:30; Stop 10/30/19 at 18:39; Status DC Fentanyl Citrate (Fentanyl 2ml Vial) 100 mcg STK-MED ONCE .ROUTE ; Start 10/30/19 at 18:39; Stop 10/30/19 at 18:40; Status DC Sodium Chloride (Normal Saline Flush) 3 ml QSHIFT PRN IV AFTER MEDS AND BLOOD DRAWS; Start 10/30/19 at 19:15 Sodium Chloride 1,000 ml @ 999 mls/hr Q1H1M STAT IV Last administered on 10/30/19at 19:42; Start 10/30/19 at 19:06; Stop 10/30/19 at 20:06; Status DC Labetalol HCl (Normodyne Iv Push) 10 mg 1X ONCE IVP Last administered on 10/30/19at 19:55; Start 10/30/19 at 20:00; Stop 10/30/19 at 20:01; Status DC Dexamethasone Sodium Phosphate (Decadron) 10 mg 1X ONCE IV Last administered on 10/30/19at 20:12; Start 10/30/19 at 20:15; Stop 10/30/19 at 20:16; Status DC Ondansetron HCl (Zofran) 4 mg PRN Q8HRS PRN IV NAUSEA/VOMITING; Start 10/30/19 at 20:30; Stop 10/31/19 at 20:29; Status DC Morphine Sulfate (Morphine Sulfate) 2 mg PRN Q2HR PRN IV PAIN; Start 10/30/19 at 20:30; Stop 10/31/19 at 20:29; Status DC Sodium Chloride 1,000 ml @ 125 mls/hr Q8H IV Last administered on 10/30/19at 23:08; Start 10/30/19 at 20:19; Stop 10/31/19 at 10:06; Status DC Acetaminophen (Tylenol) 650 mg PRN Q4HRS PRN PO FEVER > 100.3'F; Start 10/30/19 at 20:30; Stop 10/31/19 at 20:29; Status DC Dexamethasone Sodium Phosphate (Decadron) 4 mg Q6H IV ; Start 10/30/19 at 20:30; Stop 10/30/19 at 22:55; Status DC Dexamethasone Sodium Phosphate (Decadron) 4 mg Q6H IV Last administered on 11/08/19at 05:32; Start 10/30/19 at 22:55 Nicardipine HCl 50 mg/Sodium Chloride 250 ml @ 25 mls/hr CONT PRN IV SEE I/O RECORD Last administered on 11/01/19at 07:39; Start 10/31/19 at 00:45; Stop 11/06/19 at 11:26; Status DC Clonidine HCl (Catapres Tts-2) 1 patch 1X ONCE TD Last administered on 10/31/19at 01:31; Start 10/31/19 at 01:15; Stop 10/31/19 at 01:16; Status DC Metoprolol Tartrate (Lopressor) 25 mg BID PO Last administered on 11/01/19at 08:53; Start 10/31/19 at 10:00; Stop 11/01/19 at 11:09; Status DC Sodium Chloride 1,000 ml @ 100 mls/hr Q10H IV Last administered on 10/31/19at 11:00; Start 10/31/19 at 11:00; Stop 10/31/19 at 13:01; Status DC Potassium Chloride/Sodium Chloride 1,000 ml @ 75 mls/hr [id number] IV Last administered on 11/08/19at 00:05; Start 10/31/19 at 13:00 Hydralazine HCl (Apresoline Inj) 10 mg PRN Q4HRS PRN IVP ELEVATED BP, SEE COMMENTS Last administered on 11/05/19at 21:45; Start 10/31/19 at 14:30 Daptomycin 440 mg/ Sodium Chloride 50 ml @ 100 mls/hr ONCE ONCE IV Last administered on 10/31/19at 21:47; Start 10/31/19 at 21:30; Stop 10/31/19 at 22:00; Status DC Potassium Chloride (Klor-Con) 40 meq 1X ONCE PO Last administered on 11/01/19at 08:53; Start 11/01/19 at 08:45; Stop 11/01/19 at 08:46; Status DC Potassium Chloride (Klor-Con) 40 meq 1X ONCE PO Last administered on 11/01/19at 11:49; Start 11/01/19 at 11:00; Stop 11/01/19 at 11:01; Status DC Potassium Chloride (Klor-Con) 40 meq 1X ONCE PO Last administered on 11/01/19at 13:58; Start 11/01/19 at 13:00; Stop 11/01/19 at 13:01; Status DC Daptomycin 450 mg/ Sodium Chloride 50 ml @ 100 mls/hr Q24H IV Last administered on 11/04/19at 21:30; Start 11/01/19 at 21:30; Stop 11/05/19 at 10:05; Status DC Ampicillin Sodium 2 gm/Sodium Chloride 100 ml @ 200 mls/hr Q4HRS IV Last administered on 11/03/19 04:20; Start 11/01/19 at 12:00; Stop 11/03/19 at 09:33; Status DC Linezolid/Dextrose 300 ml @ 300 mls/hr Q12HR IV Last administered on 11/05/19at 07:45; Start 11/01/19 at 10:00; Stop 11/05/19 at 10:07; Status DC Amlodipine Besylate (Norvasc) 10 mg DAILY PO Last administered on 11/08/19 08:37; Start 11/01/19 at 12:00 Hydrochlorothiazide (Hydrodiuril) 25 mg DAILY PO Last administered on 11/08/19 08:38; Start 11/01/19 at 12:00 Metoprolol Tartrate (Lopressor) 100 mg BID PO Last administered on 11/08/19 08:36; Start 11/01/19 at 21:00 Losartan Potassium (Cozaar) 100 mg DAILY PO Last administered on 11/08/19 08:38; Start 11/01/19 at 12:00 Metoprolol Tartrate (Lopressor) 25 mg 1X ONCE PO Last administered on 11/01/19 11:50; Start 11/01/19 at 11:15; Stop 11/01/19 at 11:16; Status DC Metoprolol Tartrate (Lopressor) 50 mg 1X ONCE PO Last administered on 11/01/19at 11:48; Start 11/01/19 at 11:15; Stop 11/01/19 at 11:16; Status DC Acetaminophen (Tylenol) 650 mg PRN Q6HRS PRN PO MILD PAIN / TEMP > 100.3'F; Start 11/01/19 at 14:30 Multivitamins (Thera M Plus) 1 tab HS PO Last administered on 11/07/19 21:10; Start 11/01/19 at 21:00 Ascorbic Acid (Vitamin C) 500 mg HS PO Last administered on 11/07/19 21:08; Start 11/01/19 at 21:00 Gadoterate Meglumine (Dotarem) 16 ml 1X ONCE IVP Last administered on 11/02/19at 16:39; Start 11/02/19 at 16:15; Stop 11/02/19 at 16:20; Status DC Piperacillin Sod/ Tazobactam Sod (Zosyn Per Pharmacy) 1 each PRN DAILY PRN MC SEE COMMENTS; Start 11/03/19 at 09:45 Piperacillin Sod/ Tazobactam Sod 3.375 gm/Sodium Chloride 50 ml @ 100 mls/hr Q6HRS IV Last administered on 11/08/19at 05:32; Start 11/03/19 at 12:00 Potassium Chloride (Klor-Con) 20 meq 1X ONCE PO Last administered on 11/03/19at 15:03; Start 11/03/19 at 14:45; Stop 11/03/19 at 14:49; Status DC Hydralazine HCl (Apresoline) 50 mg BID PO Last administered on 11/05/19at 07:44; Start 11/04/19 at 14:00; Stop 11/05/19 at 15:19; Status DC Ciprofloxacin (Cipro) 500 mg BID PO Last administered on 11/08/19at 08:36; Start 11/05/19 at 10:15 Hydralazine HCl (Apresoline) 75 mg BID PO Last administered on 11/08/19at 08:37; Start 11/05/19 at 21:00 Potassium Chloride (Klor-Con) 20 meq 1X ONCE PO Last administered on 11/07/19at 14:33; Start 11/07/19 at 13:00; Stop 11/07/19 at 13:10; Status DC Potassium Chloride (Klor-Con) 20 meq DAILYWBKFT PO Last administered on 11/08/19at 08:37; Start 11/08/19 at 08:00 Active Scripts Active Reported Magnesium (Magnesium Oxide) 400 Mg Capsule 400 Mg PO BID Hydrochlorothiazide 25 Mg Tablet 25 Mg PO DAILY Klor-Con 10 (Potassium Chloride) 10 Meq Tablet.er 10 Mcg PO TID Losartan Potassium 100 Mg Tablet 30 Mg PO DAILY Amlodipine Besylate 10 Mg Tablet 10 Mg PO DAILY Metoprolol Tartrate 50 Mg Tablet 100 Mg PO BID Xarelto (Rivaroxaban) 20 Mg Tablet 20 Mg PO DAILY Vitals/I & O Vital Sign - Last 24 Hours 11/07/19 11/07/19 11/07/19 11/07/19 11:13 15:00 19:00 20:00 Temp 97.8 97.8 98.5 97.8 97.8 98.5 Pulse 80 84 81 Resp 18 18 18 B/P (MAP) 149/80 (103) 142/78 (99) 152/77 (102) Pulse Ox 97 97 94 O2 Delivery Room Air Room Air Room Air Room Air 11/07/19 11/07/19 11/07/19 11/08/19 21:09 21:09 23:00 03:00 Temp 98.1 98.6 98.1 98.6 Pulse 84 84 70 67 Resp 18 18 B/P (MAP) 142/78 142/78 159/77 (104) 154/86 (108) Pulse Ox 94 96 O2 Delivery Room Air Room Air 11/08/19 11/08/19 11/08/19 11/08/19 07:00 08:00 08:36 08:37 Temp 97.4 97.4 Pulse 70 70 70 Resp 18 B/P (MAP) 184/89 (120) 184/89 184/89 Pulse Ox 96 O2 Delivery Room Air Room Air 11/08/19 11/08/19 08:37 08:38 Pulse 70 70 B/P (MAP) 184/89 184/89 Intake and Output 11/07/19 11/07/19 11/08/19 15:00 23:00 07:00 Intake Total 300 ml Output Total 1650 ml 1400 ml Balance -1350 ml -1400 ml BRE MCCOY MD November 08, 2019 10:57
[2019-11-08 10:59] VITALS: BP 166/83
--- NOTE | 2019-11-08 11:18 | NUR ---
CRYSTAL following. Discussed with RN, trying to determine if pt will be doing radiation and where his radiation will be done. [facility] cannot take pt if he will be doing radiation at , but if doing here at [facility], they can accept. [facility] have submitted for insurance auth pending location of radiation. CRYSTAL will continue to follow.
[2019-11-08] MEDS ORDERED: POTASSIUM BICARB 20 MEQ EFFERVESCENT TABLET. FT ONE (13:00)
[2019-11-08] MEDS: POTASSIUM BICARB 20 MEQ EFFERVESCENT TABLET. PO SCH ×2 (13:00→17:08)
[2019-11-08] MEDS ORDERED: SODIUM PHOSPHATE 15 MMOL in IV NORMAL SALINE 250ML 250 ML IV ONE (14:00)
[2019-11-08 15:00] VITALS: BP 147/74
--- NOTE | 2019-11-08 16:29 | PDOC ---
PROGRESS NOTES Assessment Assessment IMPRESSION: Metastatic brain disease, right frontal lobe. Cerebral edema. Midline shift right to left 2 mm. Left side facial palsy. Pulmonary metastatic disease. Hepatic metastatic disease. Colon cancer stage IV, s/p colostomy. UTI. Bilateral shoulder pain. Bilateral shoulder restriction of ROM. Ivan's gangrene. Generalized weakness. Over weight. Cognitive impairment. RECOMMENDATIONS/PLAN: He has been treated with Decadron. Keppra 250 mg bid. Consulted Oncology and Radiation Oncology. Treat medical diseases. SUBJECTIVE: No headaches. OBJECTIVE: Left side facial palsy. 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) Renal/: Chronic renal insuff, UTI Dermatology: Other (Ivan's gangrene) Past Surgical History Hernia Repair (Chronic wound infection umbilical hernia, also bilateral inguinal), Colon Resection (Colostomy), Other (Incision and drainage of scrotal area) Family History Cancer Social History Single, lives alone, no alcohol, tobacco, street drugs Allergies No Known Drug Allergies (Unverified , 10/08/18) ROS Negative for fever, chills, weight loss, shortness of breath, chest pain, indig estion, hematochezia, melena, and dysuria. Full 14-point review of systems is negative. MEDICATIONS: Refer to [facility] PHYSICAL EXAMINATION: General appearance in subacute distress. HEENT: Normocephalic and nontraumatic. Eyes, nose, ears, and throat are unremarkable. Hearing decrease. Neck is supple. No lymphadenopathy. No Crepitus. Cardiovascular: S1, S2, regular rate and rhythm. Pulmonary: mildly decreased to auscultation bilaterally. Abdomen: Bowel sounds are positive. Extremities: No rash, lesions. No restriction of range of motion NEUROLOGICAL EXAMINATION: Awake. Partially oriented to time, place and person. PERRL. EOMI. CN: Left VII palsy. Muscle tone: within normal. Muscle strength: 4 DTR: 1 Plantar reflex: Neutral response bilaterally Gait: not examined. Sensory exam: no abnormal findings. No cerebellar signs elicited. F-T-N test fine. Objective Objective Vital Signs Date Time Temp Pulse Resp B/P (MAP) Pulse Ox O2 Delivery O2 Flow Rate FiO2 11/08/19 15:00 98.3 75 16 147/74 (98) 98 Room Air 98.3 Intake and Output 11/08/19 06:59 Intake Total 300 ml Output Total 3050 ml Balance -2750 ml Intake Oral 300 ml Output Urine Total 2800 ml Stool Total 250 ml Vitals Signs Vitals VS - Last 72 Hours, by Label Date Time Temp Pulse Resp B/P (MAP) Pulse Ox O2 Delivery O2 Flow Rate FiO2 11/08/19 15:00 98.3 75 16 147/74 (98) 98 Room Air 98.3 11/08/19 10:59 98.6 69 16 166/83 (110) 98 Room Air 98.6 11/08/19 08:38 70 184/89 11/08/19 08:37 70 184/89 11/08/19 08:37 70 184/89 11/08/19 08:36 70 184/89 11/08/19 08:00 Room Air 11/08/19 07:00 97.4 70 18 184/89 (120) 96 Room Air 97.4 11/08/19 03:00 98.6 67 18 154/86 (108) 96 Room Air 98.6 11/07/19 23:00 98.1 70 18 159/77 (104) 94 Room Air 98.1 11/07/19 21:09 84 142/78 11/07/19 21:09 84 142/78 11/07/19 20:00 Room Air 11/07/19 19:00 98.5 81 18 152/77 (102) 94 Room Air 98.5 11/07/19 15:00 97.8 84 18 142/78 (99) 97 Room Air 97.8 11/07/19 11:13 97.8 80 18 149/80 (103) 97 Room Air 97.8 11/07/19 09:43 65 192/91 11/07/19 09:43 65 192/91 11/07/19 09:42 65 192/91 11/07/19 09:41 65 192/91 11/07/19 07:00 98.0 65 18 192/91 (124) 95 Room Air 98.0 Laboratory Laboratory Laboratory Tests Test 11/08/19 03:15 White Blood Count 12.7 x10^3/uL (4.0-11.0) Red Blood Count 4.30 x10^6/uL (4.30-5.70) Hemoglobin 11.7 g/dL (13.0-17.5) Hematocrit 35.2 % (39.0-53.0) Mean Corpuscular Volume 82 fL (79-100) Mean Corpuscular Hemoglobin 27 pg (25-35) Mean Corpuscular Hemoglobin Concent 33 g/dL (31-37) Red Cell Distribution Width 14.9 % (11.5-14.5) Platelet Count 180 x10^3/uL (140-400) Neutrophils (%) (Auto) 90 % (31-73) Lymphocytes (%) (Auto) 4 % (24-48) Monocytes (%) (Auto) 5 % (0-9) Eosinophils (%) (Auto) 1 % (0-3) Basophils (%) (Auto) 0 % (0-3) Neutrophils # (Auto) 11.5 x10^3/uL (1.8-7.7) Lymphocytes # (Auto) 0.5 x10^3/uL (1.0-4.8) Monocytes # (Auto) 0.6 x10^3/uL (0.0-1.1) Eosinophils # (Auto) 0.1 x10^3/uL (0.0-0.7) Basophils # (Auto) 0.0 x10^3/uL (0.0-0.2) Sodium Level 134 mmol/L (136-145) Potassium Level 4.1 mmol/L (3.5-5.1) Chloride Level 99 mmol/L (98-107) Carbon Dioxide Level 27 mmol/L (21-32) Anion Gap 8 (6-14) Blood Urea Nitrogen 24 mg/dL (8-26) Creatinine 1.0 mg/dL (0.7-1.3) Estimated GFR (Cockcroft-Gault) 74.8 Glucose Level 176 mg/dL (70-99) Calcium Level 8.2 mg/dL (8.5-10.1) Phosphorus Level 2.1 mg/dL (2.6-4.7) Albumin 1.9 g/dL (3.4-5.0) Microbiology 11/05/19 Blood Culture - Preliminary, Resulted NO GROWTH AFTER 3 DAYS 10/30/19 Urine Culture - Final, Complete 10/30/19 Urine Culture Result 1 (PRIMITIVO) - Final, Complete 10/30/19 Antimicrobic Susceptibility - Final, Complete Medication Medications Current Medications Magnesium Oxide (Magnesium Oxide) 400 mg BID PO ; Start 11/08/19 at 21:00; Stop 11/10/19 at 09:01 Potassium Bicarbonate (Potassium Effervescent Tablet) 40 meq 1X ONCE FT Last administered on 11/08/19at 13:23; Start 11/08/19 at 13:00; Stop 11/08/19 at 13:07; Status DC Potassium Bicarbonate (Potassium Effervescent Tablet) 40 meq Q4H PO ; Start 11/08/19 at 13:00; Stop 11/08/19 at 17:01 Potassium Chloride (Klor-Con) 20 meq DAILYWBKFT PO Last administered on 11/08/19at 08:37; Start 11/08/19 at 08:00 Potassium Phos/ Sodium Phos (Phos-Nak) 1 pkt BID PO ; Start 11/08/19 at 21:00; Stop 11/09/19 at 09:01 Sodium Phosphate 15 mmol/Sodium Chloride 255 ml @ 125 mls/hr 1X ONCE IV Last administered on 11/08/19at 14:14; Start 11/08/19 at 14:00; Stop 11/08/19 at 16:02; Status DC Comment Review of Relevant I have reviewed the following items renetta (where applicable) has been applied. ORLY GIBBS MD November 08, 2019 16:29
[2019-11-08 19:00] VITALS: BP 144/75
[2019-11-08] MEDS: ASCORBIC ACID 500 MG TABLET PO SCH (20:35)
[2019-11-08] MEDS: MULTIVITAMIN with MINERAL TABLET. PO SCH (20:35)
[2019-11-08] MEDS: MAGNESIUM OXIDE 400 MG TABLET PO SCH (20:35)
[2019-11-08] MEDS: POTASSIUM & SODIUM PHOSPHATES PACKET. PO SCH (20:36)
[2019-11-08 23:00] VITALS: BP 179/88
[2019-11-09] MEDS: PIPERACILLIN/TAZOBACTAM 3.375 GM in IV NORMAL SALINE 50ML 50 ML IV SCH ×2 (00:11→06:00)
[2019-11-09 03:00] VITALS: BP 192/94
[2019-11-09] MEDS: DEXAMETHASONE SOD PHOS 4 MG/ML VIAL IV SCH ×4 (05:57→22:59)
[2019-11-09 07:10] VITALS: BP 180/94
--- NOTE | 2019-11-09 08:18 | PDOC ---
Infectious Disease Note Subjective Subjective feeling ok, no complaints ROS ROS no n/v/d/sob Vital Sign Vital Signs Vital Signs Date Time Temp Pulse Resp B/P (MAP) Pulse Ox O2 Delivery O2 Flow Rate FiO2 11/09/19 07:10 97.6 66 18 180/94 (122) 97 Room Air 97.6 Physical Exam PHYSICAL EXAM GENERAL: Lying down, alert, appears comfortable HEENT: Pupils are equal. EOMI He has normal conjunctivae. Oral cavity, pharynx is clear, but he has questionable dentition. NECK: Supple, no JVD. LUNGS: Clear to auscultation. HEART: S1, S2. ABDOMEN: Soft and nontender. No guarding. Positive bowel sounds. Ostomy without signs of any complications. Abdominal wound without signs of gross infection or some scabbed areas. EXTREMITIES: No clubbing, cyanosis or gross edema. SKIN: Warm to touch without signs of rash. NEUROLOGIC: Alert, answering questions appropriately. PSYCHIATRIC: Affect is appropriate. PIV Labs Lab Laboratory Tests Test 11/09/19 04:00 Phosphorus Level 2.1 mg/dL (2.6-4.7) Micro Microbiology 11/05/19 Blood Culture - Preliminary, Resulted NO GROWTH AFTER 2 DAYS 10/30/19 Urine Culture - Final, Complete 10/30/19 Urine Culture Result 1 (PRIMITIVO) - Final, Complete 10/30/19 Antimicrobic Susceptibility - Final, Complete Objective Assessment Bacteremia (1 of 2 bottles) 10/29. Enterococcus PCN sens- s/p Dapto now small GPR also given CT colon mets could be true bacteremia. Repeat BC 11/04 NGTD Enterobacter in urine 10/29- prather is out COVID - neg Leukocytosis - on Dexamethasone Large area of edema in the superior right frontal lobe: with brain mets Fever better Colon cancer metastatic undergoing chemo at [facility]. 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 Clarke at [facility] - currently does not look infected Poor dentition HTN Hypernatremia H/o THAD H/o MSSA bacteremia. ba cath removed 08/05/2019 H/o Influenza B Plan Plan of Care Continue cipro for enterobacter in urine GPR ID in blood ,, no ID yet, but likely contaminant, (diphtheroid) d/w lab Previously on Ampicillin f/u repeat BC from 11/04 neg so far Palliative brain XRT planned F/u labs and cults Electrolytes per primary Wound care consult prognosis poor, change zosyn to ampicilln iv for 1 more wk, MARCELO HENNESSY MD November 09, 2019 08:18
[2019-11-09] MEDS: LOSARTAN POTASSIUM 50 MG TABLET. PO SCH (08:36)
[2019-11-09] MEDS: MAGNESIUM OXIDE 400 MG TABLET PO SCH ×2 (08:36→21:16)
[2019-11-09] MEDS: hydroCHLOROthiazide 25 MG TABLET PO SCH (08:36)
[2019-11-09] MEDS: METOPROLOL TART IMMED RELEASE 50 MG TABLET. PO SCH ×2 (08:36→21:17)
[2019-11-09] MEDS: amLODIPine BESYLATE 10 MG TABLET PO SCH (08:37)
[2019-11-09] MEDS: hydrALAZINE 25 MG TABLET PO SCH ×3 (08:38→21:17)
[2019-11-09] MEDS: CIPROFLOXACIN HCL 250 MG TABLET. PO SCH ×2 (08:38→21:17)
[2019-11-09] MEDS: POTASSIUM CHLORIDE 20 MEQ TABLET.ER. PO SCH (08:38)
[2019-11-09] MEDS: POTASSIUM & SODIUM PHOSPHATES PACKET. PO SCH ×2 (08:38→21:17)
[2019-11-09 10:44] VITALS: BP 127/79
--- NOTE | 2019-11-09 10:55 | NUR ---
SW following. Discussed with RN. Pt's insurance has given auth for pt to go to [facility]. CRYSTAL notified Dr. Silverio of insurance auth, requesting discharge if everyone agreeable - did not get a response. CRYSTAL met with pt (no isolation precautions at the time) pt agreeable to [facility], wondered why [facility] had declined to take him. Awaiting confirmation of whether pt is going to discharge today or not. CRYSTAL will continue to follow.
--- NOTE | 2019-11-09 11:04 | PDOC ---
COLLEEN GOMEZ CUSTOMER SERVICE OPERATOR 11/09/19 1104: CARDIO Progress Notes Date and Time Date of Service 11/09/19 Subjective Subjective: No Chest Pain, No shortness of breath, No Palpitations, Other (no complaints ) Vitals Vitals Vital Signs Date Time Temp Pulse Resp B/P (MAP) Pulse Ox O2 Delivery O2 Flow Rate FiO2 11/09/19 10:44 97.4 69 17 127/79 (95) 97 Room Air 97.4 Weight Weight [ ] Input and Output Intake and Output Intake and Output 11/09/19 07:00 Intake Total 2156 ml Output Total 3350 ml Balance -1194 ml Intake Oral 1060 ml IV Total 1096 ml Output Urine Total 2550 ml Stool Total 800 ml Laboratory Labs Laboratory Tests Test 11/09/19 04:00 Phosphorus Level 2.1 mg/dL (2.6-4.7) Microbiology Micro Microbiology 11/05/19 Blood Culture - Preliminary, Resulted NO GROWTH AFTER 3 DAYS 10/30/19 Urine Culture - Final, Complete 10/30/19 Urine Culture Result 1 (PRIMITIVO) - Final, Complete 10/30/19 Antimicrobic Susceptibility - Final, Complete Physical Exam HEENT: Neck Supple W Full Motion Chest: Symmetric LUNGS: Clear to Auscultation Heart: S1S2, RRR Abdomen: Soft N/T Extremities: No Edema Neurology: alert, oriented, follow commands Assessment Assessment 1. Stage 4 Colon CA with mets to lungs, liver, and now brain treated with chemotherapy. Follows at . Palliative brain XRT planned. 2. Accelerated hypertension; labile 3. Mild trop elevation; peak 0.166. most probable type II, demand ischemia; multiple culprits noted above. Recent echo with preserved LV systolic function. CP free. 4. Bacteremia: no fever >24 hrs 5. 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 Discussed code status given advanced metastatic disease. Patient considering DNR, but would to think about it and discuss it with his friend. Needs DPOA. May discharge from a CV standpoint SCARLETT LATIF MD 11/09/193: CARDIO Progress Notes Assessment Assessment Patient seen and examined. Agree with [employer] INSTALLER's assessment and plan. Agree with increasing hydralazine dose for better BP control Slight trop elevation prob demand ischemia Continue conservative management COLLEEN GOMEZ APRN November 09, 2019 11:04 SCARLETT LATIF MD November 09, 2019 21:13
--- NOTE | 2019-11-09 11:30 | PDOC ---
PROGRESS NOTES Chief Complaint Chief Complaint IMPRESSION Right frontal edema secondary to most likely metastatic disease History of colon cancer Stage 4 Colon CA with mets to lungs and liver treated with chemotherapy. Follows at [facility]. [facility] right frontal lobe edema. MRI with evidence of brain metastasis. HemoOnc following Bacteremia (1 of 2 bottles) 10/29. Enterococcus PCN sens- s/p Dapto now small GPR also given CT colon mets could be true bacteremia. Repeat BC 11/04 NGTD Leukocytosis most likely secondary to demargination from steroids COVID-19 testing negative Chronic abdominal wound with history of infected abdominal mesh being taken care of by Dr. Clarke at [facility] currently seems asymptomatic Hypernatremia secondary to severe dehydration improved Acute renal failure vasomotor etiology most likely improved with hydration Generalized weakness and deconditioning Essential hypertension H/o THAD H/o MSSA bacteremia. ba cath removed 08/05/2019 H/o Influenza B Plan Advance diet as toleratyed continue IV abx. changed to amp per ID for 1 more weak Supportive measures Further recommendations based on the clinical course Palliative brain XRT planned Widely metastatic colon cancer undergoing chemotherapy at [facility] wound care consulted prognosis poor follow labs 37 MIN PT EXAM, CHART review, > 50% of time spent with exam, chart review, pt care coordination. History of Present Illness History of Present Illness No acute events reported overnight, case discussed with nursing staff patient in no acute distress no complaints during my visit, quite talkative. NO new neurolgical deficits evident. Awaiting for MRI. he can be transferred to a telemetry floor when bed available. Vitals Vitals Vital Signs Date Time Temp Pulse Resp B/P (MAP) Pulse Ox O2 Delivery O2 Flow Rate FiO2 11/09/19 10:44 97.4 69 17 127/79 (95) 97 Room Air 97.4 Physical Exam Physical Exam GENERAL: Lying down, alert, appears comfortable HEENT: Pupils are equal. EOMI He has normal conjunctivae. Oral cavity, pharynx is clear, but he has questionable dentition. NECK: Supple, no JVD. LUNGS: Clear to auscultation. HEART: S1, S2. ABDOMEN: Soft and nontender. No guarding. Positive bowel sounds. Ostomy without signs of any complications. Abdominal wound without signs of gross infection or some scabbed areas. EXTREMITIES: No clubbing, cyanosis or gross edema. SKIN: Warm to touch without signs of rash. NEUROLOGIC: Alert, answering questions appropriately. PSYCHIATRIC: Affect is appropriate. PIV General: Alert, Oriented X3, Cooperative, No acute distress Heart: Regular rate, Normal S1, Normal S2, No murmurs, Gallops Lungs: Clear Abdomen: Normal bowel sounds, Soft (colostomy right lower quadrant) Extremities: No clubbing, No cyanosis, No edema, Normal pulses, No tenderness/swelling Skin: No rashes Labs LABS Laboratory Tests Test 11/09/19 04:00 Phosphorus Level 2.1 mg/dL (2.6-4.7) Assessment and Plan Assessmemt and Plan Problems Medical Problems: (1) [id number] kidney injury Status: Acute (2) Cerebral mass Status: Acute (3) Elevated troponin I level Status: Acute (4) Hypokalemia Status: Acute (5) Left-sided weakness Status: Acute Comment Review of Relevant I have reviewed the following items renetta (where applicable) has been applied. Labs Laboratory Tests Test 11/08/19 03:15 11/09/19 04:00 White Blood Count 12.7 x10^3/uL (4.0-11.0) Red Blood Count 4.30 x10^6/uL (4.30-5.70) Hemoglobin 11.7 g/dL (13.0-17.5) Hematocrit 35.2 % (39.0-53.0) Mean Corpuscular Volume 82 fL (79-100) Mean Corpuscular Hemoglobin 27 pg (25-35) Mean Corpuscular Hemoglobin Concent 33 g/dL (31-37) Red Cell Distribution Width 14.9 % (11.5-14.5) Platelet Count 180 x10^3/uL (140-400) Neutrophils (%) (Auto) 90 % (31-73) Lymphocytes (%) (Auto) 4 % (24-48) Monocytes (%) (Auto) 5 % (0-9) Eosinophils (%) (Auto) 1 % (0-3) Basophils (%) (Auto) 0 % (0-3) Neutrophils # (Auto) 11.5 x10^3/uL (1.8-7.7) Lymphocytes # (Auto) 0.5 x10^3/uL (1.0-4.8) Monocytes # (Auto) 0.6 x10^3/uL (0.0-1.1) Eosinophils # (Auto) 0.1 x10^3/uL (0.0-0.7) Basophils # (Auto) 0.0 x10^3/uL (0.0-0.2) Sodium Level 134 mmol/L (136-145) Potassium Level 4.1 mmol/L (3.5-5.1) Chloride Level 99 mmol/L (98-107) Carbon Dioxide Level 27 mmol/L (21-32) Anion Gap 8 (6-14) Blood Urea Nitrogen 24 mg/dL (8-26) Creatinine 1.0 mg/dL (0.7-1.3) Estimated GFR (Cockcroft-Gault) 74.8 Glucose Level 176 mg/dL (70-99) Calcium Level 8.2 mg/dL (8.5-10.1) Phosphorus Level 2.1 mg/dL (2.6-4.7) 2.1 mg/dL (2.6-4.7) Albumin 1.9 g/dL (3.4-5.0) Laboratory Tests Test 11/09/19 04:00 Phosphorus Level 2.1 mg/dL (2.6-4.7) Microbiology 11/05/19 Blood Culture - Preliminary, Resulted NO GROWTH AFTER 3 DAYS 10/30/19 Urine Culture - Final, Complete 10/30/19 Urine Culture Result 1 (PRIMITIVO) - Final, Complete 10/30/19 Antimicrobic Susceptibility - Final, Complete Medications Current Medications Sodium Chloride 1,000 ml @ 2,000 mls/hr 1X ONCE IV Last administered on 10/30/19at 18:13; Start 10/30/19 at 17:30; Stop 10/30/19 at 17:59; Status DC Potassium Chloride/Water 100 ml @ 50 mls/hr 1X ONCE IV Last administered on 10/30/19at 18:20; Start 10/30/19 at 18:30; Stop 10/30/19 at 20:29; Status DC Fentanyl Citrate (Fentanyl 2ml Vial) 50 mcg 1X ONCE IVP Last administered on 10/30/19at 18:41; Start 10/30/19 at 18:30; Stop 10/30/19 at 18:39; Status DC Fentanyl Citrate (Fentanyl 2ml Vial) 100 mcg STK-MED ONCE .ROUTE ; Start 10/30/19 at 18:39; Stop 10/30/19 at 18:40; Status DC Sodium Chloride (Normal Saline Flush) 3 ml QSHIFT PRN IV AFTER MEDS AND BLOOD DRAWS; Start 10/30/19 at 19:15 Sodium Chloride 1,000 ml @ 999 mls/hr Q1H1M STAT IV Last administered on 10/30/19at 19:42; Start 10/30/19 at 19:06; Stop 10/30/19 at 20:06; Status DC Labetalol HCl (Normodyne Iv Push) 10 mg 1X ONCE IVP Last administered on 10/30/19at 19:55; Start 10/30/19 at 20:00; Stop 10/30/19 at 20:01; Status DC Dexamethasone Sodium Phosphate (Decadron) 10 mg 1X ONCE IV Last administered on 10/30/19at 20:12; Start 10/30/19 at 20:15; Stop 10/30/19 at 20:16; Status DC Ondansetron HCl (Zofran) 4 mg PRN Q8HRS PRN IV NAUSEA/VOMITING; Start 10/30/19 at 20:30; Stop 10/31/19 at 20:29; Status DC Morphine Sulfate (Morphine Sulfate) 2 mg PRN Q2HR PRN IV PAIN; Start 10/30/19 at 20:30; Stop 10/31/19 at 20:29; Status DC Sodium Chloride 1,000 ml @ 125 mls/hr Q8H IV Last administered on 10/30/19at 23:08; Start 10/30/19 at 20:19; Stop 10/31/19 at 10:06; Status DC Acetaminophen (Tylenol) 650 mg PRN Q4HRS PRN PO FEVER > 100.3'F; Start 10/30/19 at 20:30; Stop 10/31/19 at 20:29; Status DC Dexamethasone Sodium Phosphate (Decadron) 4 mg Q6H IV ; Start 10/30/19 at 20:30; Stop 10/30/19 at 22:55; Status DC Dexamethasone Sodium Phosphate (Decadron) 4 mg Q6H IV Last administered on 11/09/19at 10:22; Start 10/30/19 at 22:55 Nicardipine HCl 50 mg/Sodium Chloride 250 ml @ 25 mls/hr CONT PRN IV SEE I/O RECORD Last administered on 11/01/19at 07:39; Start 10/31/19 at 00:45; Stop 11/06/19 at 11:26; Status DC Clonidine HCl (Catapres Tts-2) 1 patch 1X ONCE TD Last administered on 10/31/19at 01:31; Start 10/31/19 at 01:15; Stop 10/31/19 at 01:16; Status DC Metoprolol Tartrate (Lopressor) 25 mg BID PO Last administered on 11/01/19at 08:53; Start 10/31/19 at 10:00; Stop 11/01/19 at 11:09; Status DC Sodium Chloride 1,000 ml @ 100 mls/hr Q10H IV Last administered on 10/31/19at 11:00; Start 10/31/19 at 11:00; Stop 10/31/19 at 13:01; Status DC Potassium Chloride/Sodium Chloride 1,000 ml @ 75 mls/hr [id number] IV Last administered on 11/09/19at 08:34; Start 10/31/19 at 13:00 Hydralazine HCl (Apresoline Inj) 10 mg PRN Q4HRS PRN IVP ELEVATED BP, SEE COMMENTS Last administered on 11/05/19at 21:45; Start 10/31/19 at 14:30 Daptomycin 440 mg/ Sodium Chloride 50 ml @ 100 mls/hr ONCE ONCE IV Last administered on 10/31/19at 21:47; Start 10/31/19 at 21:30; Stop 10/31/19 at 22:00; Status DC Potassium Chloride (Klor-Con) 40 meq 1X ONCE PO Last administered on 11/01/19at 08:53; Start 11/01/19 at 08:45; Stop 11/01/19 at 08:46; Status DC Potassium Chloride (Klor-Con) 40 meq 1X ONCE PO Last administered on 11/01/19at 11:49; Start 11/01/19 at 11:00; Stop 11/01/19 at 11:01; Status DC Potassium Chloride (Klor-Con) 40 meq 1X ONCE PO Last administered on 11/01/19at 13:58; Start 11/01/19 at 13:00; Stop 11/01/19 at 13:01; Status DC Daptomycin 450 mg/ Sodium Chloride 50 ml @ 100 mls/hr Q24H IV Last administered on 11/04/19 21:30; Start 11/01/19 at 21:30; Stop 11/05/19 at 10:05; Status DC Ampicillin Sodium 2 gm/Sodium Chloride 100 ml @ 200 mls/hr Q4HRS IV Last administered on 11/03/19 04:20; Start 11/01/19 at 12:00; Stop 11/03/19 at 09:33; Status DC Linezolid/Dextrose 300 ml @ 300 mls/hr Q12HR IV Last administered on 11/05/19at 07:45; Start 11/01/19 at 10:00; Stop 11/05/19 at 10:07; Status DC Amlodipine Besylate (Norvasc) 10 mg DAILY PO Last administered on 11/09/19 08:37; Start 11/01/19 at 12:00 Hydrochlorothiazide (Hydrodiuril) 25 mg DAILY PO Last administered on 11/09/19 08:36; Start 11/01/19 at 12:00 Metoprolol Tartrate (Lopressor) 100 mg BID PO Last administered on 11/09/19 08:36; Start 11/01/19 at 21:00 Losartan Potassium (Cozaar) 100 mg DAILY PO Last administered on 11/09/19 08:36; Start 11/01/19 at 12:00 Metoprolol Tartrate (Lopressor) 25 mg 1X ONCE PO Last administered on 11/01/19at 11:50; Start 11/01/19 at 11:15; Stop 11/01/19 at 11:16; Status DC Metoprolol Tartrate (Lopressor) 50 mg 1X ONCE PO Last administered on 11/01/19at 11:48; Start 11/01/19 at 11:15; Stop 11/01/19 at 11:16; Status DC Acetaminophen (Tylenol) 650 mg PRN Q6HRS PRN PO MILD PAIN / TEMP > 100.3'F; Start 11/01/19 at 14:30 Multivitamins (Thera M Plus) 1 tab HS PO Last administered on 11/08/19at 20:35; Start 11/01/19 at 21:00 Ascorbic Acid (Vitamin C) 500 mg HS PO Last administered on 11/08/19at 20:35; Start 11/01/19 at 21:00 Gadoterate Meglumine (Dotarem) 16 ml 1X ONCE IVP Last administered on 11/02/19at 16:39; Start 11/02/19 at 16:15; Stop 11/02/19 at 16:20; Status DC Piperacillin Sod/ Tazobactam Sod (Zosyn Per Pharmacy) 1 each PRN DAILY PRN MC SEE COMMENTS; Start 11/03/19 at 09:45 Piperacillin Sod/ Tazobactam Sod 3.375 gm/Sodium Chloride 50 ml @ 100 mls/hr Q6HRS IV Last administered on 11/09/19at 06:00; Start 11/03/19 at 12:00; Stop 11/09/19 at 08:19; Status DC Potassium Chloride (Klor-Con) 20 meq 1X ONCE PO Last administered on 11/03/19at 15:03; Start 11/03/19 at 14:45; Stop 11/03/19 at 14:49; Status DC Hydralazine HCl (Apresoline) 50 mg BID PO Last administered on 11/05/19at 07:44; Start 11/04/19 at 14:00; Stop 11/05/19 at 15:19; Status DC Ciprofloxacin (Cipro) 500 mg BID PO Last administered on 11/09/19at 08:38; Start 11/05/19 at 10:15 Hydralazine HCl (Apresoline) 75 mg BID PO Last administered on 11/09/19at 08:38; Start 11/05/19 at 21:00 Potassium Chloride (Klor-Con) 20 meq 1X ONCE PO Last administered on 11/07/19at 14:33; Start 11/07/19 at 13:00; Stop 11/07/19 at 13:10; Status DC Potassium Chloride (Klor-Con) 20 meq [id number] PO Last administered on 11/09/19at 08:38; Start 11/08/19 at 08:00 Potassium Bicarbonate (Potassium Effervescent Tablet) 40 meq 1X ONCE FT Last administered on 11/08/19at 13:23; Start 11/08/19 at 13:00; Stop 11/08/19 at 13:07; Status DC Magnesium Oxide (Magnesium Oxide) 400 mg BID PO Last administered on 11/09/19at 08:36; Start 11/08/19 at 21:00; Stop 11/10/19 at 09:01 Potassium Phos/ Sodium Phos (Phos-Nak) 1 pkt BID PO Last administered on 11/09/19at 08:38; Start 11/08/19 at 21:00; Stop 11/09/19 at 09:01; Status DC Sodium Phosphate 15 mmol/Sodium Chloride 255 ml @ 125 mls/hr 1X ONCE IV Last administered on 11/08/19at 14:14; Start 11/08/19 at 14:00; Stop 11/08/19 at 16:02; Status DC Potassium Bicarbonate (Potassium Effervescent Tablet) 40 meq Q4H PO Last administered on 11/08/19at 17:08; Start 11/08/19 at 13:00; Stop 11/08/19 at 17:01; Status DC Ampicillin Sodium 2 gm/Sodium Chloride 100 ml @ 200 mls/hr Q4HRS IV ; Start 11/09/19 at 12:00 Active Scripts Active Reported Magnesium (Magnesium Oxide) 400 Mg Capsule 400 Mg PO BID Hydrochlorothiazide 25 Mg Tablet 25 Mg PO DAILY Klor-Con 10 (Potassium Chloride) 10 Meq Tablet.er 10 Mcg PO TID Losartan Potassium 100 Mg Tablet 30 Mg PO DAILY Amlodipine Besylate 10 Mg Tablet 10 Mg PO DAILY Metoprolol Tartrate 50 Mg Tablet 100 Mg PO BID Xarelto (Rivaroxaban) 20 Mg Tablet 20 Mg PO DAILY Vitals/I & O Vital Sign - Last 24 Hours 11/08/19 11/08/19 11/08/19 11/08/19 15:00 19:00 20:15 20:35 Temp 98.3 99.2 98.3 99.2 Pulse 75 83 83 Resp 16 19 B/P (MAP) 147/74 (98) 144/75 (98) 157/76 Pulse Ox 98 97 O2 Delivery Room Air Room Air Room Air 11/08/19 11/08/19 11/09/19 11/09/19 20:35 23:00 03:00 07:10 Temp 97.4 98.8 97.6 97.4 98.8 97.6 Pulse 83 74 70 66 Resp 19 19 18 B/P (MAP) 157/76 179/88 (118) 192/94 (126) 180/94 (122) Pulse Ox 97 98 97 O2 Delivery Room Air Room Air Room Air 11/09/19 11/09/19 11/09/19 11/09/19 08:36 08:36 08:37 08:38 Pulse 66 66 66 66 B/P (MAP) 180/94 180/94 180/94 180/94 11/09/19 10:44 Temp 97.4 97.4 Pulse 69 Resp 17 B/P (MAP) 127/79 (95) Pulse Ox 97 O2 Delivery Room Air Intake and Output 11/08/19 11/08/19 11/09/19 15:00 23:00 07:00 Intake Total 860 ml 1296 ml Output Total 1200 ml 1850 ml 300 ml Balance -1200 ml -990 ml 996 ml BUSHRA BRYAN MD November 09, 2019 11:30
[2019-11-09] MEDS: AMPICILLIN SODIUM 2 GM in IV NORMAL SALINE 100ML 100 ML IV SCH ×4 (12:00→23:51)
[2019-11-09] MEDS ORDERED: POTASSIUM BICARB 20 MEQ EFFERVESCENT TABLET. FT ONE (12:00)
[2019-11-09] MEDS: MAGNESIUM SULFATE 2GM 50 ML IV SCH (12:32)
[2019-11-09] MEDS ORDERED: SODIUM PHOSPHATE 30 MMOL in IV NORMAL SALINE 250ML 250 ML IV ONE (14:00)
--- NOTE | 2019-11-09 14:41 | NUR ---
Wound/Ostomy Care Wound Type/Assessment: Pt has mid abdominal wounds with exposed mesh, no drainage noted, dusky red periwound shiny and reddened. Pt sees Dr. Clarke, wound care doctor at [facility] and he occasionally trims the mesh as needed. Wounds redressed with xeroform and covered with a foam dressing, recommendation of changing every 3 days. No other wounds noted on full skin inspection. Treatment Recommendations/Plan: moisturizing, absorbant dressings, continue follow up with Dr. Clarke as directed. Education provided: PU education, pt verbalized understanding, he is able to self turn Offloading surface/device: Wedge for repositioning, turned pt onto left side, heels floated. Recommended Referrals/Tests: N/A Discharge Recommendations for dressings: will defer to Dr. Clarke
[2019-11-09 14:51] VITALS: BP 132/74
--- NOTE | 2019-11-09 16:13 | PDOC ---
PROGRESS NOTES Assessment Problems Medical Problems: (1) Xhzho-lk-[id number] kidney injury Status: Acute (2) Cerebral mass Status: Acute (3) Elevated troponin I level Status: Acute (4) Hypokalemia Status: Acute (5) Left-sided weakness Status: Acute Large area of edema in the superior right frontal lobe, metastatic colon cancer, MRI brain, CT body reviewed Osteoarthritis or rotator cuff problems in both shoulders COVID19 negative. Enterobacter UTI Other medical issues include acute kidney injury, elevated troponin, hypokalemia, colon cancer, metastatic, chronic abdominal wound Plan Palliative radiotherapy to the 2 intracranial lesions in the right frontal lobe. Neurosurgery has seen, not a good surgical candidate Dexamethasone, taper per radiation oncology Rehabilitation modalities Dr. Carter wrote in her note that the patient is on Keppra 250 mg twice daily, that is not correct and there is no need for prophylactic anticonvulsants Subjective No complaints Objective Vital Signs Date Time Temp Pulse Resp B/P (MAP) Pulse Ox O2 Delivery O2 Flow Rate FiO2 11/09/19 14:51 77 132/74 (93) 11/09/19 10:44 97.4 17 97 Room Air 97.4 Intake and Output 11/09/19 07:00 Intake Total 2156 ml Output Total 3350 ml Balance -1194 ml Intake Oral 1060 ml IV Total 1096 ml Output Urine Total 2550 ml Stool Total 800 ml PHYSICAL EXAM Alert. Oriented to time, place and person. PERRL. EOMI. CN: Slight left central facial weakness. Muscle tone: normal. Muscle strength: Limited range of motion of shoulders bilaterally, no longer has left pronator drift, otherwise 5/5 DTR: 2+ Plantar reflex: Flexor Gait: not examined in bed. Sensory exam: no abnormal findings. No cerebellar signs elicited. Review of Relevant I have reviewed the following items renetta (where applicable) has been applied. Labs Laboratory Tests Test 11/08/19 03:15 11/09/19 04:00 White Blood Count 12.7 x10^3/uL (4.0-11.0) Red Blood Count 4.30 x10^6/uL (4.30-5.70) Hemoglobin 11.7 g/dL (13.0-17.5) Hematocrit 35.2 % (39.0-53.0) Mean Corpuscular Volume 82 fL (79-100) Mean Corpuscular Hemoglobin 27 pg (25-35) Mean Corpuscular Hemoglobin Concent 33 g/dL (31-37) Red Cell Distribution Width 14.9 % (11.5-14.5) Platelet Count 180 x10^3/uL (140-400) Neutrophils (%) (Auto) 90 % (31-73) Lymphocytes (%) (Auto) 4 % (24-48) Monocytes (%) (Auto) 5 % (0-9) Eosinophils (%) (Auto) 1 % (0-3) Basophils (%) (Auto) 0 % (0-3) Neutrophils # (Auto) 11.5 x10^3/uL (1.8-7.7) Lymphocytes # (Auto) 0.5 x10^3/uL (1.0-4.8) Monocytes # (Auto) 0.6 x10^3/uL (0.0-1.1) Eosinophils # (Auto) 0.1 x10^3/uL (0.0-0.7) Basophils # (Auto) 0.0 x10^3/uL (0.0-0.2) Sodium Level 134 mmol/L (136-145) Potassium Level 4.1 mmol/L (3.5-5.1) Chloride Level 99 mmol/L (98-107) Carbon Dioxide Level 27 mmol/L (21-32) Anion Gap 8 (6-14) Blood Urea Nitrogen 24 mg/dL (8-26) Creatinine 1.0 mg/dL (0.7-1.3) Estimated GFR (Cockcroft-Gault) 74.8 Glucose Level 176 mg/dL (70-99) Calcium Level 8.2 mg/dL (8.5-10.1) Phosphorus Level 2.1 mg/dL (2.6-4.7) 2.1 mg/dL (2.6-4.7) Albumin 1.9 g/dL (3.4-5.0) Laboratory Tests Test 11/09/19 04:00 Phosphorus Level 2.1 mg/dL (2.6-4.7) Microbiology 11/05/19 Blood Culture - Preliminary, Resulted NO GROWTH AFTER 4 DAYS 10/30/19 Urine Culture - Final, Complete 10/30/19 Urine Culture Result 1 (PRIMITIVO) - Final, Complete 10/30/19 Antimicrobic Susceptibility - Final, Complete Medications Current Medications Sodium Chloride 1,000 ml @ 2,000 mls/hr 1X ONCE IV Last administered on 10/30/19at 18:13; Start 10/30/19 at 17:30; Stop 10/30/19 at 17:59; Status DC Potassium Chloride/Water 100 ml @ 50 mls/hr 1X ONCE IV Last administered on 10/30/19at 18:20; Start 10/30/19 at 18:30; Stop 10/30/19 at 20:29; Status DC Fentanyl Citrate (Fentanyl 2ml Vial) 50 mcg 1X ONCE IVP Last administered on 10/30/19at 18:41; Start 10/30/19 at 18:30; Stop 10/30/19 at 18:39; Status DC Fentanyl Citrate (Fentanyl 2ml Vial) 100 mcg STK-MED ONCE .ROUTE ; Start 10/30/19 at 18:39; Stop 10/30/19 at 18:40; Status DC Sodium Chloride (Normal Saline Flush) 3 ml QSHIFT PRN IV AFTER MEDS AND BLOOD DRAWS; Start 10/30/19 at 19:15 Sodium Chloride 1,000 ml @ 999 mls/hr Q1H1M STAT IV Last administered on 10/30/19at 19:42; Start 10/30/19 at 19:06; Stop 10/30/19 at 20:06; Status DC Labetalol HCl (Normodyne Iv Push) 10 mg 1X ONCE IVP Last administered on 10/30/19at 19:55; Start 10/30/19 at 20:00; Stop 10/30/19 at 20:01; Status DC Dexamethasone Sodium Phosphate (Decadron) 10 mg 1X ONCE IV Last administered on 10/30/19at 20:12; Start 10/30/19 at 20:15; Stop 10/30/19 at 20:16; Status DC Ondansetron HCl (Zofran) 4 mg PRN Q8HRS PRN IV NAUSEA/VOMITING; Start 10/30/19 at 20:30; Stop 10/31/19 at 20:29; Status DC Morphine Sulfate (Morphine Sulfate) 2 mg PRN Q2HR PRN IV PAIN; Start 10/30/19 at 20:30; Stop 10/31/19 at 20:29; Status DC Sodium Chloride 1,000 ml @ 125 mls/hr Q8H IV Last administered on 10/30/19at 23:08; Start 10/30/19 at 20:19; Stop 10/31/19 at 10:06; Status DC Acetaminophen (Tylenol) 650 mg PRN Q4HRS PRN PO FEVER > 100.3'F; Start 10/30/19 at 20:30; Stop 10/31/19 at 20:29; Status DC Dexamethasone Sodium Phosphate (Decadron) 4 mg Q6H IV ; Start 10/30/19 at 20:30; Stop 10/30/19 at 22:55; Status DC Dexamethasone Sodium Phosphate (Decadron) 4 mg Q6H IV Last administered on 11/09/19at 10:22; Start 10/30/19 at 22:55 Nicardipine HCl 50 mg/Sodium Chloride 250 ml @ 25 mls/hr CONT PRN IV SEE I/O RECORD Last administered on 11/01/19at 07:39; Start 10/31/19 at 00:45; Stop 11/06/19 at 11:26; Status DC Clonidine HCl (Catapres Tts-2) 1 patch 1X ONCE TD Last administered on 10/31/19at 01:31; Start 10/31/19 at 01:15; Stop 10/31/19 at 01:16; Status DC Metoprolol Tartrate (Lopressor) 25 mg BID PO Last administered on 11/01/19 08:53; Start 10/31/19 at 10:00; Stop 11/01/19 at 11:09; Status DC Sodium Chloride 1,000 ml @ 100 mls/hr Q10H IV Last administered on 10/31/19at 11:00; Start 10/31/19 at 11:00; Stop 10/31/19 at 13:01; Status DC Potassium Chloride/Sodium Chloride 1,000 ml @ 75 mls/hr [id number] IV Last administered on 11/09/19at 08:34; Start 10/31/19 at 13:00 Hydralazine HCl (Apresoline Inj) 10 mg PRN Q4HRS PRN IVP ELEVATED BP, SEE COMMENTS Last administered on 11/05/19at 21:45; Start 10/31/19 at 14:30 Daptomycin 440 mg/ Sodium Chloride 50 ml @ 100 mls/hr ONCE ONCE IV Last administered on 10/31/19at 21:47; Start 10/31/19 at 21:30; Stop 10/31/19 at 22:00; Status DC Potassium Chloride (Klor-Con) 40 meq 1X ONCE PO Last administered on 11/01/19at 08:53; Start 11/01/19 at 08:45; Stop 11/01/19 at 08:46; Status DC Potassium Chloride (Klor-Con) 40 meq 1X ONCE PO Last administered on 11/01/19at 11:49; Start 11/01/19 at 11:00; Stop 11/01/19 at 11:01; Status DC Potassium Chloride (Klor-Con) 40 meq 1X ONCE PO Last administered on 11/01/19at 13:58; Start 11/01/19 at 13:00; Stop 11/01/19 at 13:01; Status DC Daptomycin 450 mg/ Sodium Chloride 50 ml @ 100 mls/hr Q24H IV Last administered on 11/04/19at 21:30; Start 11/01/19 at 21:30; Stop 11/05/19 at 10:05; Status DC Ampicillin Sodium 2 gm/Sodium Chloride 100 ml @ 200 mls/hr Q4HRS IV Last administered on 11/03/19at 04:20; Start 11/01/19 at 12:00; Stop 11/03/19 at 09:33; Status DC Linezolid/Dextrose 300 ml @ 300 mls/hr Q12HR IV Last administered on 11/05/19at 07:45; Start 11/01/19 at 10:00; Stop 11/05/19 at 10:07; Status DC Amlodipine Besylate (Norvasc) 10 mg DAILY PO Last administered on 11/09/19at 08:37; Start 11/01/19 at 12:00 Hydrochlorothiazide (Hydrodiuril) 25 mg DAILY PO Last administered on 11/09/19at 08:36; Start 11/01/19 at 12:00 Metoprolol Tartrate (Lopressor) 100 mg BID PO Last administered on 11/09/19at 08:36; Start 11/01/19 at 21:00 Losartan Potassium (Cozaar) 100 mg DAILY PO Last administered on 11/09/19at 08:36; Start 11/01/19 at 12:00 Metoprolol Tartrate (Lopressor) 25 mg 1X ONCE PO Last administered on 11/01/19at 11:50; Start 11/01/19 at 11:15; Stop 11/01/19 at 11:16; Status DC Metoprolol Tartrate (Lopressor) 50 mg 1X ONCE PO Last administered on 11/01/19at 11:48; Start 11/01/19 at 11:15; Stop 11/01/19 at 11:16; Status DC Acetaminophen (Tylenol) 650 mg PRN Q6HRS PRN PO MILD PAIN / TEMP > 100.3'F; Start 11/01/19 at 14:30 Multivitamins (Thera M Plus) 1 tab HS PO Last administered on 11/08/19at 20:35; Start 11/01/19 at 21:00 Ascorbic Acid (Vitamin C) 500 mg HS PO Last administered on 11/08/19at 20:35; Start 11/01/19 at 21:00 Gadoterate Meglumine (Dotarem) 16 ml 1X ONCE IVP Last administered on 11/02/19at 16:39; Start 11/02/19 at 16:15; Stop 11/02/19 at 16:20; Status DC Piperacillin Sod/ Tazobactam Sod (Zosyn Per Pharmacy) 1 each PRN DAILY PRN MC SEE COMMENTS; Start 11/03/19 at 09:45; Stop 11/09/19 at 14:01; Status DC Piperacillin Sod/ Tazobactam Sod 3.375 gm/Sodium Chloride 50 ml @ 100 mls/hr Q6HRS IV Last administered on 11/09/19at 06:00; Start 11/03/19 at 12:00; Stop 11/09/19 at 08:19; Status DC Potassium Chloride (Klor-Con) 20 meq 1X ONCE PO Last administered on 11/03/19at 15:03; Start 11/03/19 at 14:45; Stop 11/03/19 at 14:49; Status DC Hydralazine HCl (Apresoline) 50 mg BID PO Last administered on 11/05/19at 07:44; Start 11/04/19 at 14:00; Stop 11/05/19 at 15:19; Status DC Ciprofloxacin (Cipro) 500 mg BID PO Last administered on 11/09/19at 08:38; Start 11/05/19 at 10:15 Hydralazine HCl (Apresoline) 75 mg BID PO Last administered on 11/09/19at 08:38; Start 11/05/19 at 21:00; Stop 11/09/19 at 13:28; Status DC Potassium Chloride (Klor-Con) 20 meq 1X ONCE PO Last administered on 11/07/19at 14:33; Start 11/07/19 at 13:00; Stop 11/07/19 at 13:10; Status DC Potassium Chloride (Klor-Con) 20 meq [id number] PO Last administered on 11/09/19at 08:38; Start 11/08/19 at 08:00 Potassium Bicarbonate (Potassium Effervescent Tablet) 40 meq 1X ONCE FT Last administered on 11/08/19at 13:23; Start 11/08/19 at 13:00; Stop 11/08/19 at 13:07; Status DC Magnesium Oxide (Magnesium Oxide) 400 mg BID PO Last administered on 11/09/19at 08:36; Start 11/08/19 at 21:00; Stop 11/10/19 at 09:01 Potassium Phos/ Sodium Phos (Phos-Nak) 1 pkt BID PO Last administered on 11/09/19at 08:38; Start 11/08/19 at 21:00; Stop 11/09/19 at 09:01; Status DC Sodium Phosphate 15 mmol/Sodium Chloride 255 ml @ 125 mls/hr 1X ONCE IV Last administered on 11/08/19at 14:14; Start 11/08/19 at 14:00; Stop 11/08/19 at 16:02; Status DC Potassium Bicarbonate (Potassium Effervescent Tablet) 40 meq Q4H PO Last administered on 11/08/19at 17:08; Start 11/08/19 at 13:00; Stop 11/08/19 at 17:01; Status DC Ampicillin Sodium 2 gm/Sodium Chloride 100 ml @ 200 mls/hr Q4HRS IV ; Start 11/09/19 at 12:00 Potassium Bicarbonate (Potassium Effervescent Tablet) 40 meq 1X ONCE FT Last administered on 11/09/19at 12:37; Start 11/09/19 at 12:00; Stop 11/09/19 at 12:01; Status DC Magnesium Sulfate 50 ml @ 25 mls/hr Q24H IV Last administered on 11/09/19at 12:32; Start 11/09/19 at 11:30; Stop 11/11/19 at 13:29 Potassium Phos/ Sodium Phos (Phos-Nak) 1 pkt BID PO ; Start 11/09/19 at 21:00; Stop 11/10/19 at 09:01 Sodium Phosphate 30 mmol/Sodium Chloride 260 ml @ 130 mls/hr 1X ONCE IV Last administered on 11/09/19at 14:07; Start 11/09/19 at 14:00; Stop 11/09/19 at 15:59; Status DC Hydralazine HCl (Apresoline) 75 mg TID PO Last administered on 11/09/19at 14:18; Start 11/09/19 at 14:00 Active Scripts Active Reported Magnesium (Magnesium Oxide) 400 Mg Capsule 400 Mg PO BID Hydrochlorothiazide 25 Mg Tablet 25 Mg PO DAILY Klor-Con 10 (Potassium Chloride) 10 Meq Tablet.er 10 Mcg PO TID Losartan Potassium 100 Mg Tablet 30 Mg PO DAILY Amlodipine Besylate 10 Mg Tablet 10 Mg PO DAILY Metoprolol Tartrate 50 Mg Tablet 100 Mg PO BID Xarelto (Rivaroxaban) 20 Mg Tablet 20 Mg PO DAILY Vitals/I & O Vital Sign - Last 24 Hours 11/08/19 11/08/19 11/08/19 11/08/19 19:00 20:15 20:35 20:35 Temp 99.2 99.2 Pulse 83 83 83 Resp 19 B/P (MAP) 144/75 (98) 157/76 157/76 Pulse Ox 97 O2 Delivery Room Air Room Air 11/08/19 11/09/19 11/09/19 11/09/19 23:00 03:00 07:10 08:36 Temp 97.4 98.8 97.6 97.4 98.8 97.6 Pulse 74 70 66 66 Resp 19 19 18 B/P (MAP) 179/88 (118) 192/94 (126) 180/94 (122) 180/94 Pulse Ox 97 98 97 O2 Delivery Room Air Room Air Room Air 11/09/19 11/09/19 11/09/19 11/09/19 08:36 08:37 08:38 10:44 Temp 97.4 97.4 Pulse 66 66 66 69 Resp 17 B/P (MAP) 180/94 180/94 180/94 127/79 (95) Pulse Ox 97 O2 Delivery Room Air 11/09/19 11/09/19 14:18 14:51 Pulse 77 77 B/P (MAP) 132/74 132/74 (93) Intake and Output 11/08/19 11/08/19 11/09/19 15:00 23:00 07:00 Intake Total 860 ml 1296 ml Output Total 1200 ml 1850 ml 300 ml Balance -1200 ml -990 ml 996 ml MITCH WISDOM MD November 09, 2019 16:13
[2019-11-09 19:20] VITALS: BP 159/75
[2019-11-09] MEDS: ASCORBIC ACID 500 MG TABLET PO SCH (21:17)
[2019-11-09] MEDS: MULTIVITAMIN with MINERAL TABLET. PO SCH (21:17)
[2019-11-09 22:56] VITALS: BP 150/72
[2019-11-10 03:10] VITALS: BP 185/93
[2019-11-10] MEDS: AMPICILLIN SODIUM 2 GM in IV NORMAL SALINE 100ML 100 ML IV SCH ×4 (04:12→16:00)
[2019-11-10] MEDS: DEXAMETHASONE SOD PHOS 4 MG/ML VIAL IV SCH ×2 (05:00→11:27)
[2019-11-10 07:00] VITALS: BP 186/96
--- NOTE | 2019-11-10 08:28 | PDOC ---
Infectious Disease Note Subjective Subjective feeling ok, no complaints ROS ROS no n/v/d/sob Vital Sign Vital Signs Vital Signs Date Time Temp Pulse Resp B/P (MAP) Pulse Ox O2 Delivery O2 Flow Rate FiO2 11/10/19 03:10 98.2 72 20 185/93 (123) 95 Room Air 98.2 Physical Exam PHYSICAL EXAM GENERAL: Lying down, alert, appears comfortable HEENT: Pupils are equal. EOMI He has normal conjunctivae. Oral cavity, pharynx is clear, but he has questionable dentition. NECK: Supple, no JVD. LUNGS: Clear to auscultation. HEART: S1, S2. ABDOMEN: Soft and nontender. No guarding. Positive bowel sounds. Ostomy without signs of any complications. Abdominal wound without signs of gross infection or some scabbed areas. EXTREMITIES: No clubbing, cyanosis or gross edema. SKIN: Warm to touch without signs of rash. NEUROLOGIC: Alert, answering questions appropriately. PSYCHIATRIC: Affect is appropriate. PIV Labs Lab Laboratory Tests Test 11/10/19 03:45 Magnesium Level 2.0 mg/dL (1.8-2.4) Micro Microbiology 11/05/19 Blood Culture - Preliminary, Resulted NO GROWTH AFTER 2 DAYS 10/30/19 Urine Culture - Final, Complete 10/30/19 Urine Culture Result 1 (PRIMITIVO) - Final, Complete 10/30/19 Antimicrobic Susceptibility - Final, Complete Objective Assessment Bacteremia (1 of 2 bottles) 10/29. Enterococcus PCN sens- s/p Dapto now small GPR also given CT colon mets could be true bacteremia. Repeat BC 11/04 NGTD Enterobacter in urine 10/29- prather is out COVID - neg Leukocytosis - on Dexamethasone Large area of edema in the superior right frontal lobe: with brain mets Fever better Colon cancer metastatic undergoing chemo at [facility]. 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 Clarke at [facility] - currently does not look infected Poor dentition HTN Hypernatremia H/o THAD H/o MSSA bacteremia. ba cath removed 08/05/2019 H/o Influenza B Plan Plan of Care Continue cipro for enterobacter in urine GPR ID in blood ,, no ID yet, but likely contaminant, (diphtheroid) d/w lab Previously on Ampicillin f/u repeat BC from 11/04 neg so far Palliative brain XRT planned F/u labs and cults Electrolytes per primary Wound care consult prognosis poor, ampicilln iv for 1 more wk, MARCELO HENNESSY MD November 10, 2019 08:28
[2019-11-10] MEDS: POTASSIUM CHLORIDE 20 MEQ TABLET.ER. PO SCH (08:37)
[2019-11-10] MEDS: MAGNESIUM OXIDE 400 MG TABLET PO SCH (08:37)
[2019-11-10] MEDS: CIPROFLOXACIN HCL 250 MG TABLET. PO SCH (08:37)
[2019-11-10] MEDS: METOPROLOL TART IMMED RELEASE 50 MG TABLET. PO SCH (08:38)
[2019-11-10] MEDS: hydroCHLOROthiazide 25 MG TABLET PO SCH (08:38)
[2019-11-10] MEDS: POTASSIUM & SODIUM PHOSPHATES PACKET. PO SCH (08:38)
[2019-11-10] MEDS: LOSARTAN POTASSIUM 50 MG TABLET. PO SCH (08:39)
[2019-11-10] MEDS: amLODIPine BESYLATE 10 MG TABLET PO SCH (08:39)
--- NOTE | 2019-11-10 08:40 | NUR ---
SW following. Discussed with RN, pt having radiation today at 1pm. Plans for [facility] after radiation treatment. PP are able to do q4 IV abx. [employer] stated pt needs to go to [facility] today. RN notified. Addendum: 11/10/19 at 1409 by ABDELRAHMAN ROJAS Pt discharging today to [facility] via express transportation between [id number]. [facility] and RN notified.
--- NOTE | 2019-11-10 08:43 | PDOC ---
Progress Note: getting RT today through friday likely? per RT RN, apprec their assistance, can likely taper dex post RT, defer to rad/onc, chemo remains on hold, i did notify his oncologist Dr Haji to call and check on him next wk for f/u i see plans for ampicillin x 1 more wk, apprec ID assistance today is my last day, i will not be able to f/u after today please call w/ ?s, thank you kindly, p LEODAN Awan MD November 10, 2019 08:43
[2019-11-10 10:53] VITALS: BP 164/80
--- NOTE | 2019-11-10 11:23 | PDOC ---
COLLEEN GOMEZ APRN 11/10/19 1123: CARDIO Progress Notes Date and Time Date of Service 11/10/19 Time of Evaluation 1055 Subjective Subjective: No Chest Pain, No shortness of breath, No Palpitations, Other (no complaints ) Vitals Vitals Vital Signs Date Time Temp Pulse Resp B/P (MAP) Pulse Ox O2 Delivery O2 Flow Rate FiO2 11/10/19 10:53 98.3 71 17 164/80 (108) 97 Room Air 98.3 Weight Weight [ ] Input and Output Intake and Output Intake and Output 11/10/19 07:00 Intake Total 1240 ml Output Total 1825 ml Balance -585 ml Intake Oral 1240 ml Output Urine Total 1525 ml Stool Total 300 ml # Voids 6 Laboratory Labs Laboratory Tests Test 11/10/19 03:45 Magnesium Level 2.0 mg/dL (1.8-2.4) Microbiology Micro Microbiology 11/05/19 Blood Culture - Final, Complete NO GROWTH AFTER 5 DAYS 10/30/19 Urine Culture - Final, Complete 10/30/19 Urine Culture Result 1 (PRIMITIVO) - Final, Complete 10/30/19 Antimicrobic Susceptibility - Final, Complete Physical Exam HEENT: Neck Supple W Full Motion Chest: Symmetric LUNGS: Clear to Auscultation Heart: S1S2, RRR Abdomen: Soft N/T Extremities: No Edema Neurology: alert, oriented, follow commands Assessment Assessment 1. Stage 4 Colon CA with mets to lungs, liver, and now brain treated with chemotherapy. Follows at [facility]. Palliative brain XRT 2. Accelerated hypertension; labile 3. Mild trop elevation; peak 0.166. most probable type II, demand ischemia; multiple culprits noted above. Recent echo with preserved LV systolic function. Remains CP free. 4. Bacteremia: no fever >24 hrs 5. 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 Okay to discharge to [facility] from a CV standpoint. SCARLETT LATIF MD 11/10/19 2141: CARDIO Progress Notes Assessment Assessment Patient seen and examined. Agree with DIE STAMPER's assessment and plan. BP better controlled with increased dose of hydralazine Slight trop elevation prob demand ischemia OK to transfer to from cardiac standpoint COLLEEN GOMEZ APRN November 10, 2019 11:23 SCARLETT LATIF MD November 10, 2019 21:41
[2019-11-10] MEDS: MAGNESIUM SULFATE 2GM 50 ML IV SCH (11:32)
[2019-11-10] MEDS ORDERED: HYDR-2869 PO (12:01)
--- NOTE | 2019-11-10 12:30 | SNU/HH DC ---
DISCHARGE ORDERS DISCHARGE INFORMATION: DISCHARGE DATE: November 10, 2019 FINAL DIAGNOSIS Problems Medical Problems: (1) [id number] kidney injury Status: Acute (2) Cerebral mass Status: Acute (3) Elevated troponin I level Status: Acute (4) Hypokalemia Status: Acute (5) Left-sided weakness Status: Acute CONDITION ON DISCHARGE: Stable CODE STATUS: Code Status: Full [facility]CI: SNF STAY <30 DAYS: Yes POST DISCHARGE ORDERS: ACTIVITY ORDERS: Activity as tolerated WEIGHT BEARING STATUS: As tolerated BATHING ORDERS: No Tub Bath until see Dr. SCHILLING AFTER DISCHARGE: Regular WOUND/INCISION CARE: Other, see below TREATMENT/EQUIPMENT ORDERS: ADAPTIVE EQUIPMENT NEEDED: None RESPIRATORY EQUIPMENT NEEDED: Oxygen, BiPAP Physical Therapy For: Evalulation/Treatment Occupational Therapy For: Evaluation/Treatment DISCHARGE MEDICATIONS: Home Meds Active Scripts Hydralazine Hcl (HYDRALAZINE HCL) 50 Mg Tablet, 100 MG PO TID for htn for 60 Days, #360 TAB Prov:BUSHRA BRYAN MD 11/10/19 Reported Medications Magnesium Oxide (MAGNESIUM) 400 Mg Capsule, 400 MG PO BID for supplement, CAP 11/01/19 Hydrochlorothiazide (Hydrochlorothiazide) 25 Mg Tablet, 25 MG PO DAILY for HTN/diuretic 11/01/19 Potassium Chloride (KLOR-CON 10) 10 Meq Tablet.er, 10 MCG PO TID for supplement 11/01/19 Losartan Potassium (LOSARTAN POTASSIUM) 100 Mg Tablet, 30 MG PO DAILY for hypertension 11/01/19 Amlodipine Besylate (AMLODIPINE BESYLATE) 10 Mg Tablet, 10 MG PO DAILY for hypertension 11/01/19 Metoprolol Tartrate (METOPROLOL TARTRATE) 50 Mg Tablet, 100 MG PO BID for hypertension 11/01/19 Rivaroxaban (XARELTO) 20 Mg Tablet, 20 MG PO DAILY for with chemo 11/01/19 BUSHRA BRYAN MD November 10, 2019 12:29
--- NOTE | 2019-11-10 13:12 | PDOC3 ---
Discharge Summary Visit Information Date of Admission: October 30, 2019 Date of Discharge: November 10, 2019 Final Diagnosis Problems Medical Problems: (1) [id number] kidney injury Status: Acute (2) Cerebral mass Status: Acute (3) Elevated troponin I level Status: Acute (4) Hypokalemia Status: Acute (5) Left-sided weakness Status: Acute Brief Hospital Course Allergies Allergies Coded Allergies Type Severity Reaction Last Updated Verified No Known Drug Allergies 10/08/18 No Vital Signs GENERAL: No apparent distress. Alert and oriented. HEENT: Head normocephalic, atraumatic. NECK: Supple LUNGS: Clear to auscultation. HEART: RRR, S1, S2 present, pulses intact ABDOMEN: Soft, positive bowel sounds. EXTREMITIES: No cyanosis or edema. NEUROLOGIC: Normal speech, normal tone PSYCHIATRIC: Normal affect, normal mood. SKIN: No ulceration. Vital Signs Date Time Temp Pulse Resp B/P (MAP) Pulse Ox O2 Delivery O2 Flow Rate FiO2 11/10/19 10:53 98.3 71 17 164/80 (108) 97 Room Air 98.3 Lab Results Laboratory Tests Test 11/09/19 04:00 11/10/19 03:45 Phosphorus Level 2.1 mg/dL (2.6-4.7) Magnesium Level 2.0 mg/dL (1.8-2.4) Laboratory Tests Test 11/10/19 03:45 Magnesium Level 2.0 mg/dL (1.8-2.4) Brief Hospital Course IMPRESSION Right frontal edema secondary to most likely metastatic disease History of colon cancer Stage 4 Colon CA with mets to lungs and liver treated with chemotherapy. Follows at [facility]. [facility] right frontal lobe edema. MRI with evidence of brain metastasis. HemoOnc following Bacteremia (1 of 2 bottles) 10/29. Enterococcus PCN sens- s/p Dapto now small GPR also given CT colon mets could be true bacteremia. Repeat BC 11/04 NGTD Leukocytosis most likely secondary to demargination from steroids COVID-19 testing negative Chronic abdominal wound with history of infected abdominal mesh being taken care of by Dr. Clarke at [facility] currently seems asymptomatic Hypernatremia secondary to severe dehydration improved Acute renal failure vasomotor etiology most likely improved with hydration Generalized weakness and deconditioning Essential hypertension H/o THAD H/o MSSA bacteremia. ba cath removed 08/05/2019 H/o Influenza B Plan patient to continue cipro and ampicillin per ID for bacteremia Widely metastatic colon cancer undergoing chemotherapy at [facility]. to undergo radiation treatment as well per rad onc. H/o chronic abdominal wound with h/o infected abdominal mesh, wound care consulted patient ton continue decadron per rad onc given cerebral edema on multiple BP meds. added GUDINO and increased dose. i suspect his UC HTN due to steroids okay to dc to facility today. Discharge Information Condition at Discharge: Improved Disposition/Orders: D/C to Another Facility Scheduled Amlodipine Besylate (Amlodipine Besylate) 10 Mg Tablet, 10 MG PO DAILY for hypertension, (Reported) Entered as Reported by: SUSAN IBRAHIM on 11/01/191055 Last Action: Continued on 11/01/191105 by SUSAN IBRAHIM Hydralazine Hcl (Hydralazine Hcl) 50 Mg Tablet, 100 MG PO TID for htn for 60 Days, #360 Prescribed by: BUSHRA BRYAN MD on 11/10/19 1201 Hydrochlorothiazide (Hydrochlorothiazide) 25 Mg Tablet, 25 MG PO DAILY for HTN/diuretic, (Reported) Entered as Reported by: SUSAN IBRAHIM on 11/01/19 110 Last Action: Continued on 11/01/191105 by SUSAN IBRAHIM Losartan Potassium (Losartan Potassium) 100 Mg Tablet, 30 MG PO DAILY for hypertension, (Reported) Entered as Reported by: SUSAN IBRAHIM on 11/01/19 105 Last Action: Converted on 11/01/191105 by SUSAN IBRAHIM Magnesium Oxide (Magnesium) 400 Mg Capsule, 400 MG PO BID for supplement, (Reported) Entered as Reported by: SUSAN IBRAHIM on 11/01/19 1104 Last Action: New Order on 11/01/191103 by SUSAN IBRAHIM Metoprolol Tartrate (Metoprolol Tartrate) 50 Mg Tablet, 100 MG PO BID for hypertension, (Reported) Entered as Reported by: SUSAN IBRAHIM on 11/01/19 105 Last Action: Continued on 11/01/191105 by SUSAN IBRAHIM Potassium Chloride (Klor-Con 10) 10 Meq Tablet.er, 10 MCG PO TID for supplement, (Reported) Entered as Reported by: SUSAN IBRAHIM on 11/01/191055 Last Action: New Order on 11/01/191055 by SUSAN IBRAHIM Rivaroxaban (Xarelto) 20 Mg Tablet, 20 MG PO DAILY for with chemo, (Reported) Entered as Reported by: SUSAN IBRAHIM on 11/01/191055 Last Action: New Order on 11/01/191055 by BUSHRA MORELOS MD November 10, 2019 13:12
--- NOTE | 2019-11-10 14:00 | NUR ---
Patient down to radiation department today for his first of three treatments to two right frontal lesions. He tolerated well.
== END 2019-11-10 17:29 | DRG 871 ==
LOC: ER 17:03 → 1 WEST ICU 21:05 → 6 SOUTH 11-02 14:00 → 4 NORTH 11-04 14:07
PROVIDERS: ADMIT Internal Medicine; ATTEND Internal Medicine
DX: A41.9 Sepsis, unspecified organism (principal); N17.0 Acute kidney failure with tubular necrosis; G93.6 Cerebral edema; R65.21 Severe sepsis with septic shock; C18.9 Malignant neoplasm of colon, unspecified; C77.0 Secondary and unspecified malignant neoplasm of lymph nodes of head, face and neck; C78.00 Secondary malignant neoplasm of unspecified lung; C78.1 Secondary malignant neoplasm of mediastinum; C78.2 Secondary malignant neoplasm of pleura; C78.5 Secondary malignant neoplasm of large intestine and rectum; C78.7 Secondary malignant neoplasm of liver and intrahepatic bile duct; C79.31 Secondary malignant neoplasm of brain; C79.72 Secondary malignant neoplasm of left adrenal gland; E87.1 Hypo-osmolality and hyponatremia; I47.2 Ventricular tachycardia; K56.609 Unspecified intestinal obstruction, unspecified as to partial versus complete obstruction; N39.0 Urinary tract infection, site not specified; B96.89 Other specified bacterial agents as the cause of diseases classified elsewhere; E86.0 Dehydration; E87.5 Hyperkalemia; E87.6 Hypokalemia; G51.0 Bell's palsy; I12.9 Hypertensive chronic kidney disease with stage 1 through stage 4 chronic kidney disease, or unspecified chronic kidney disease; I16.0 Hypertensive urgency; J10.1 Influenza due to other identified influenza virus with other respiratory manifestations; M19.90 Unspecified osteoarthritis, unspecified site; N18.9 Chronic kidney disease, unspecified; N49.3 Fournier gangrene; Z51.5 Encounter for palliative care; Z79.899 Other long term (current) drug therapy; Z85.038 Personal history of other malignant neoplasm of large intestine; Z86.14 Personal history of Methicillin resistant Staphylococcus aureus infection; Z86.718 Personal history of other venous thrombosis and embolism; Z87.39 Personal history of other diseases of the musculoskeletal system and connective tissue; Z87.440 Personal history of urinary (tract) infections; Z92.21 Personal history of antineoplastic chemotherapy; Z93.3 Colostomy status; Z20.828 Contact with and (suspected) exposure to other viral communicable diseases
CPT/HCPCS: 36415; 36600; 70450; 70553; 71250; 74176; 77295; 77300; 77334; 77470; 80048; 80053; 80061; 80069; 81001; 82550; 82805; 83605; 83690; 83735; 83935; 84100; 84132; 84443; 84484; 85007; 85025; 85610; 87040; 87077; 87086; 87186; 87205; 87635; 93005; 96361; 96365; 96375; A9575; J0290; J0360; J0878; J1100; J2020; J2543; J3010; J3475; J3480; J3490; J7030; J7050; 92526-GN; 92610-GN; 97116-GP; 97530-GO; 97530-GP; 97535-GO; 99285-25; G0378